=== PATIENT | female | born 1930 | race American Indian/Alaskan Native ===

== ENCOUNTER 2018-07-18 20:21 | Inpatient (IN) | payer MEDICARE ==
--- NOTE | 2018-07-18 20:47 | Emergency Department Report ---
ED General Adult HPI - General Chief complaint: Hypoglycemia Stated complaint: LOW BLOOD GLUCOSE/HIGH BP Time Seen by Provider: 07/18/18 20:33 Source: patient, family, EMS Mode of arrival: Stretcher Limitations: No Limitations - History of Present Illness Initial comments: Patient stated that legs give out and she fell in the department this evening. She was unable to get up on her own. She complained of right-sided chest wall pain. She denies any headache, neck pain. -: Sudden Location: chest Radiation: non-radiation Severity scale (0 -10): 2 Quality: sharp Consistency: constant Improves with: rest Worsens with: movement Associated Symptoms: denies other symptoms Treatments Prior to Arrival: none - Related Data Allergies Allergy/AdvReac Type Severity Reaction Status Date / Time No Known Allergies Allergy Unverified 07/18/18 20:42 ED Review of Systems ROS: Stated complaint: LOW BLOOD GLUCOSE/HIGH BP Other details as noted in HPI Comment: All other systems reviewed and negative Constitutional: denies: chills, fever Eyes: denies: eye pain, eye discharge, vision change ENT: denies: ear pain, throat pain Respiratory: denies: cough, shortness of breath, wheezing Cardiovascular: chest pain. denies: palpitations Endocrine: no symptoms reported Gastrointestinal: denies: abdominal pain, nausea, diarrhea Genitourinary: denies: urgency, dysuria, discharge Musculoskeletal: denies: back pain, joint swelling, arthralgia Skin: denies: rash, lesions Neurological: denies: headache, weakness, paresthesias Psychiatric: denies: anxiety, depression Hematological/Lymphatic: denies: easy bleeding, easy bruising ED Past Medical Hx - Past Medical History Previous Medical History?: Yes Hx Diabetes: Yes - Social History Smoking Status: Former Smoker Substance Use Type: None ED Physical Exam - General Limitations: No Limitations General appearance: alert, in no apparent distress - Head Head exam: Present: atraumatic, normocephalic, normal inspection - Eye Eye exam: Present: normal appearance, PERRL - ENT ENT exam: Present: normal exam, normal orophraynx, mucous membranes moist - Neck Neck exam: Present: normal inspection - Respiratory Respiratory exam: Present: normal lung sounds bilaterally. Absent: respiratory distress, wheezes, rales, rhonchi - Cardiovascular Cardiovascular Exam: Present: regular rate, normal rhythm, other (Right lower chest wall tenderness to palpation.). Absent: systolic murmur, diastolic murmur, rubs, gallop - GI/Abdominal GI/Abdominal exam: Present: soft, normal bowel sounds. Absent: distended, ten derness, guarding - Extremities Exam Extremities exam: Present: normal inspection, full ROM, normal capillary refill. Absent: tenderness, pedal edema - Back Exam Back exam: Present: normal inspection, full ROM - Neurological Exam Neurological exam: Present: alert, oriented X3, CN II-XII intact - Psychiatric Psychiatric exam: Present: normal affect, normal mood - Skin Skin exam: Present: warm, dry, intact, normal color. Absent: rash ED Course Vital Signs 07/18/18 07/18/18 07/18/18 20:26 20:30 20:35 Temperature 99.3 F Pulse Rate 109 H 100 H 99 H Respiratory 27 H 30 H 21 Rate Blood Pressure 143/64 143/64 Blood Pressure 143/64 [Right] O2 Sat by Pulse 94 91 92 Oximetry 07/18/18 07/18/18 07/18/18 20:46 21:00 21:16 Temperature Pulse Rate 100 H 97 H 93 H Respiratory 21 25 H 20 Rate Blood Pressure 143/64 143/64 147/73 Blood Pressure [Right] O2 Sat by Pulse 93 90 95 Oximetry 07/18/18 07/18/18 07/18/18 21:30 21:45 22:20 Temperature Pulse Rate 88 97 H Respiratory 30 H 18 Rate Blood Pressure 153/72 147/73 Blood Pressure [Right] O2 Sat by Pulse 90 94 96 Oximetry 07/18/18 07/18/18 07/18/18 22:30 22:46 23:00 Temperature Pulse Rate 85 82 80 Respiratory 23 24 22 Rate Blood Pressure 151/77 151/77 146/68 Blood Pressure [Right] O2 Sat by Pulse 92 94 94 Oximetry 07/18/18 07/18/18 07/18/18 23:16 23:30 23:38 Temperature Pulse Rate 87 85 82 Respiratory 12 29 H 28 H Rate Blood Pressure 146/68 153/78 153/78 Blood Pressure [Right] O2 Sat by Pulse 97 94 97 Oximetry 07/18/18 07/19/18 07/19/18 23:46 00:54 01:00 Temperature 100.6 F H Pulse Rate 80 Respiratory 25 H 11 L Rate Blood Pressure 153/78 Blood Pressure [Right] O2 Sat by Pulse 96 97 Oximetry - Reevaluation(s) Reevaluation #1: 07/19/18 01:45 Patient care was transitioned to Dr Rachelle Luevano to follow up on the result of the CT abdomen and pelvis with PO contrast and call back Dr Wooten with the result. - Consultations Consultation #1: 07/19/18 01:21 I consulted the general Surgeon library circulation department chief Dr Aden and he wants the CT abdomen and pelvis repeated with PO contract only and patient to be admitted by the hospitalist. Consultation #2: 07/19/18 01:22 Dr Gonzalez to admit patient. ED Medical Decision Making - Lab Data Result diagrams: 07/18/18 20:48 07/18/18 20:48 Lab Results 07/18/18 07/18/18 07/18/18 Range/Units 20:28 20:48 20:48 WBC 12.3 H (4.5-11.0) K/mm3 RBC 3.47 L (3.65-5.03) M/mm3 Hgb 9.1 L (10.1-14.3) gm/dl Hct 28.9 L (30.3-42.9) % MCV 83 (79-97) fl MCH 26 L (28-32) pg MCHC 32 (30-34) % RDW 16.1 H (13.2-15.2) % Plt Count 473 H (140-440) K/mm3 Lymph % (Auto) 5.4 L (13.4-35.0) % [place] % (Auto) 6.4 (0.0-7.3) % Eos % (Auto) 0.5 (0.0-4.3) % Baso % (Auto) 1.2 (0.0-1.8) % Lymph # 0.7 L (1.2-5.4) K/mm3 [place] # 0.8 (0.0-0.8) K/mm3 Eos # 0.1 (0.0-0.4) K/mm3 Baso # 0.1 (0.0-0.1) K/mm3 Seg Neutrophils % 86.5 H (40.0-70.0) % Seg Neutrophils # 10.7 H (1.8-7.7) K/mm3 PT 14.4 (12.2-14.9) Sec. INR 1.08 (0.87-1.13) APTT (24.2-36.6) Sec. Sodium (137-145) mmol/L Potassium (3.6-5.0) mmol/L Chloride (98-107) mmol/L Carbon Dioxide (22-30) mmol/L Anion Gap mmol/L BUN (7-17) mg/dL Creatinine (0.7-1.2) mg/dL Estimated GFR ml/min BUN/Creatinine Ratio % Glucose (65-100) mg/dL POC Glucose 109 H (70-105) Calcium (8.4-10.2) mg/dL Total Bilirubin (0.1-1.2) mg/dL AST (5-40) units/L ALT (7-56) units/L Alkaline Phosphatase (35-129) units/L Total Creatine Kinase (30-135) units/L CK-MB (CK-2) (0.0-4.0) ng/mL CK-MB (CK-2) Rel Index (0-4) Troponin T (0.00-0.029) ng/mL NT-Pro-B Natriuret Pep (0-900) pg/mL Total Protein (6.3-8.2) g/dL Albumin (3.9-5) g/dL Albumin/Globulin Ratio % Urine Color (Yellow) Urine Turbidity (Clear) Urine pH (5.0-7.0) Ur Specific Staples (1.003-1.030) Urine Protein (Negative) mg/dL Urine Glucose (UA) (Negative) mg/dL Urine Ketones (Negative) mg/dL Urine Blood (Negative) Urine Nitrite (Negative) Urine Bilirubin (Negative) Urine Urobilinogen (<2.0) mg/dL Ur Leukocyte Esterase (Negative) Urine WBC (Auto) (0.0-6.0) /HPF Urine RBC (Auto) (0.0-6.0) /HPF U Epithel Cells (Auto) (0-13.0) /HPF Urine Mucus /HPF 07/18/18 07/18/18 07/18/18 Range/Units 20:48 20:48 20:48 WBC (4.5-11.0) K/mm3 RBC (3.65-5.03) M/mm3 Hgb (10.1-14.3) gm/dl Hct (30.3-42.9) % MCV (79-97) fl MCH (28-32) pg MCHC (30-34) % RDW (13.2-15.2) % Plt Count (140-440) K/mm3 Lymph % (Auto) (13.4-35.0) % [place] % (Auto) (0.0-7.3) % Eos % (Auto) (0.0-4.3) % Baso % (Auto) (0.0-1.8) % Lymph # (1.2-5.4) K/mm3 [place] # (0.0-0.8) K/mm3 Eos # (0.0-0.4) K/mm3 Baso # (0.0-0.1) K/mm3 Seg Neutrophils % (40.0-70.0) % Seg Neutrophils # (1.8-7.7) K/mm3 PT (12.2-14.9) Sec. INR (0.87-1.13) APTT 23.2 L (24.2-36.6) Sec. Sodium 137 (137-145) mmol/L Potassium 4.0 (3.6-5.0) mmol/L Chloride 100.3 (98-107) mmol/L Carbon Dioxide 24 (22-30) mmol/L Anion Gap 17 mmol/L BUN 15 (7-17) mg/dL Creatinine 1.0 (0.7-1.2) mg/dL Estimated GFR > 60 ml/min BUN/Creatinine Ratio 15 % Glucose 108 H (65-100) mg/dL POC Glucose (70-105) Calcium 8.8 (8.4-10.2) mg/dL Total Bilirubin 0.20 (0.1-1.2) mg/dL AST 13 (5-40) units/L ALT 9 (7-56) units/L Alkaline Phosphatase 87 (35-129) units/L Total Creatine Kinase 48 (30-135) units/L CK-MB (CK-2) < 1.0 (0.0-4.0) ng/mL CK-MB (CK-2) Rel Index 2.0 (0-4) Troponin T 0.025 (0.00-0.029) ng/mL NT-Pro-B Natriuret Pep 462.4 (0-900) pg/mL Total Protein 7.5 (6.3-8.2) g/dL Albumin 3.1 L (3.9-5) g/dL Albumin/Globulin Ratio 0.7 % Urine Color (Yellow) Urine Turbidity (Clear) Urine pH (5.0-7.0) Ur Specific Staples (1.003-1.030) Urine Protein (Negative) mg/dL Urine Glucose (UA) (Negative) mg/dL Urine Ketones (Negative) mg/dL Urine Blood (Negative) Urine Nitrite (Negative) Urine Bilirubin (Negative) Urine Urobilinogen (<2.0) mg/dL Ur Leukocyte Esterase (Negative) Urine WBC (Auto) (0.0-6.0) /HPF Urine RBC (Auto) (0.0-6.0) /HPF U Epithel Cells (Auto) (0-13.0) /HPF Urine Mucus /HPF 07/18/18 07/18/18 Range/Units 21:49 23:12 WBC (4.5-11.0) K/mm3 RBC (3.65-5.03) M/mm3 Hgb (10.1-14.3) gm/dl Hct (30.3-42.9) % MCV (79-97) fl MCH (28-32) pg MCHC (30-34) % RDW (13.2-15.2) % Plt Count (140-440) K/mm3 Lymph % (Auto) (13.4-35.0) % [place] % (Auto) (0.0-7.3) % Eos % (Auto) (0.0-4.3) % Baso % (Auto) (0.0-1.8) % Lymph # (1.2-5.4) K/mm3 [place] # (0.0-0.8) K/mm3 Eos # (0.0-0.4) K/mm3 Baso # (0.0-0.1) K/mm3 Seg Neutrophils % (40.0-70.0) % Seg Neutrophils # (1.8-7.7) K/mm3 PT (12.2-14.9) Sec. INR (0.87-1.13) APTT (24.2-36.6) Sec. Sodium (137-145) mmol/L Potassium (3.6-5.0) mmol/L Chloride (98-107) mmol/L Carbon Dioxide (22-30) mmol/L Anion Gap mmol/L BUN (7-17) mg/dL Creatinine (0.7-1.2) mg/dL Estimated GFR ml/min BUN/Creatinine Ratio % Glucose (65-100) mg/dL POC Glucose 106 H (70-105) Calcium (8.4-10.2) mg/dL Total Bilirubin (0.1-1.2) mg/dL AST (5-40) units/L ALT (7-56) units/L Alkaline Phosphatase (35-129) units/L Total Creatine Kinase (30-135) units/L CK-MB (CK-2) (0.0-4.0) ng/mL CK-MB (CK-2) Rel Index (0-4) Troponin T (0.00-0.029) ng/mL NT-Pro-B Natriuret Pep (0-900) pg/mL Total Protein (6.3-8.2) g/dL Albumin (3.9-5) g/dL Albumin/Globulin Ratio % Urine Color Yellow (Yellow) Urine Turbidity Clear (Clear) Urine pH 5.0 (5.0-7.0) Ur Specific Staples 1.019 (1.003-1.030) Urine Protein <15 mg/dl (Negative) mg/dL Urine Glucose (UA) Neg (Negative) mg/dL Urine Ketones Neg (Negative) mg/dL Urine Blood Neg (Negative) Urine Nitrite Neg (Negative) Urine Bilirubin Neg (Negative) Urine Urobilinogen 4.0 (<2.0) mg/dL Ur Leukocyte Esterase Neg (Negative) Urine WBC (Auto) 2.0 (0.0-6.0) /HPF Urine RBC (Auto) < 1.0 (0.0-6.0) /HPF U Epithel Cells (Auto) 3.0 (0-13.0) /HPF Urine Mucus Few /HPF - EKG Data -: EKG Interpreted by Nc EKG shows normal: sinus rhythm Rate: tachycardia (100) - EKG Data When compared to previous EKG there are: previous EKG unavailable Interpretation: nonspecific ST-T wave farshad 07/18/18 20:55 PVC. No STEMI. - Radiology Data Radiology results: report reviewed, image reviewed Hypoglycermia. Abdominal pain. s/p Fall. Critical Care Time: Yes Critical care time in (mins) excluding proc time.: 50 Critical care attestation.: If time is entered above; I have spent that time in minutes in the direct care of this critically ill patient, excluding procedure time. ED Disposition Clinical Impression: Perforated diverticulum of large intestine, Acute perforated appendicitis Fall Qualifiers: Encounter type: initial encounter Qualified Code(s): W19.XXXA - Unspecified fall, initial encounter Abdominal pain Qualifiers: Abdominal location: right lower quadrant Qualified Code(s): R10.31 - Right lower quadrant pain Disposition: 09 OP ADMIT IP TO THIS HOSP Is pt being admited?: Yes Does the pt Need Aspirin: No Condition: Stable Referrals: PRIMARY CARE, [Primary Care Provider] - 3-5 Days Time of Disposition: 01:08
[2018-07-18 21:06] LABS: Basophils # (Auto) 0.1 K/mm3 (0.0-0.1); Basophils % (Auto) 1.2 % (0.0-1.8); Eosinophils # (Auto) 0.1 K/mm3 (0.0-0.4); Eosinophils % (Auto) 0.5 % (0.0-4.3); Hematocrit 28.9 % (30.3-42.9); Hemoglobin 9.1 gm/dl (10.1-14.3); Lymphocytes # (Auto) 0.7 K/mm3 (1.2-5.4); Lymphocytes % (Auto) 5.4 % (13.4-35.0); Mean Corpuscular HGB Conc 32 % (30-34); Mean Corpuscular Volume 83 fl (79-97); Monocytes # (Auto) 0.8 K/mm3 (0.0-0.8); Monocytes % (Auto) 6.4 % (0.0-7.3); Platelet Count 473 K/mm3 (140-440); Red Blood Count 3.47 M/mm3 (3.65-5.03); Red Cell Distribution Width 16.1 % (13.2-15.2)
[2018-07-18 21:09] LABS: INR 1.08 (0.87-1.13)
[2018-07-18 21:19] LABS: Creatine Kinase MB < 1.0 ng/mL (0.0-4.0)
--- NOTE | 2018-07-18 21:29 | XRay Report ---
FINAL REPORT EXAM: XR CHEST 1V AP HISTORY: Lightheadedness/Dizziness TECHNIQUE: AP portable view of the chest. PRIORS: None. FINDINGS: There is atherosclerotic calcification in the thoracic aorta. The cardiac silhouette is enlarged. The right lung is clear. There is a left basilar opacity consistent with a pleural effusion. The bones a nd soft tissues are unremarkable. IMPRESSION: Subpleural effusion and cardiomegaly
[2018-07-18 21:43] LABS: Alanine Aminotransferase 9 units/L (7-56); Albumin 3.1 g/dL (3.9-5); BUN/Creatinine Ratio 15; Blood Urea Nitrogen 15 mg/dL (7-17); Calcium 8.8 mg/dL (8.4-10.2); Hemolysis Index 2
[2018-07-18 22:04] LABS: Bilirubin,Urine NEG (Negative); Blood,Urine NEG (Negative); Color,Urine Yellow (Yellow); Mucus,Urine FEW /HPF; Protein,Urine <15 mg/dL mg/dL (Negative); RBC,Urine < 1.0 /HPF (0.0-6.0)
--- NOTE | 2018-07-18 22:34 | Cat Scan Report ---
FINAL REPORT EXAM: CT HEAD/BRAIN WO CON HISTORY: Lightheadedness/Dizziness TECHNIQUE: Contiguous axial images of the head were obtained without the use of intravenous contrast . PRIORS: None. FINDINGS: The cerebral hemispheres are without focal lesions. There is no evidence of acute infarct or intracra nial hemorrhage. There is no mass lesion or mass effect. There are no abnormal extra-axial fluid col lections. The ventricles and sulci are prominent consistent with generalized loss of brain substance, appropriate for age. There is deep white matter lucency consistent with chronic microvascular ischem ic disease. The visualized skull and orbits are unremarkable. The visualized paranasal sinuses are cl ear. IMPRESSION: 1. No evidence of acute infarct or intracranial hemorrhage. 2. White matter lucency consistent with chronic microvascular ischemic disease.
--- NOTE | 2018-07-19 00:53 | Cat Scan Report ---
FINAL REPORT EXAM: CT ANGIO CHEST HISTORY: Chest pain TECHNIQUE: High-resolution helical axial images were obtained of the chest during intravenous admini stration of iodinated contrast. Images are reconstructed in the sagittal and coronal planes. PRIORS: None. FINDINGS: There is no evidence of pulmonary embolism, the pulmonary arteries opacify normally. The heart is moderately enlarged. The thoracic aorta is non aneurysmal. There is lingular linear thic kening consistent with subsegmental atelectasis or parenchymal scar. Images through the upper abdomen are unremarkable. There is thoracic spondylosis with multiple bridging syndesmophytes. IMPRESSION: 1. No evidence of pulmonary embolism. 2. Mild cardiomegaly 3. Lingular subsegmental atelectasis versus parenchymal scar 4. Findings are consistent with DISH
--- NOTE | 2018-07-19 00:58 | Cat Scan Report ---
FINAL REPORT EXAM: CT ABDOMEN PELVIS W CON HISTORY: abdominal pain TECHNIQUE: Routine axial imaging was obtained of the abdomen and pelvis following the intravenous in jection of iodinated contrast. Sagittal and coronal reconstructions were reviewed. There are no previ ous studies available for comparison. FINDINGS: The lung bases reveal interstitial changes which appear to be on a chronic basis. The heart is mildly enlarged. The gallbladder is contracted. The liver and biliary tree appear normal. The pancreas, spleen and adr enal glands appear normal. The kidneys reveal benign cortical cysts bilaterally measuring to 2.2 cm i n diameter. There is no evidence of hydronephrosis. The abdominal aorta is normal in caliber. The por divya vein enhances normally. There are scattered diverticula throughout the colon. There are diffuse inflammatory changes involvin g the cecum and proximal ascending colon with extensive pericolonic stranding and inflammatory change s particularly posteriorly. It is uncertain whether the findings are secondary to appendicitis with p robable perforation versus diverticulitis with perforation. A normal-appearing appendix is not seen. There is no evidence of bowel obstruction. Adenopathy is not identified. In the pelvis the bladder ap pears normal. The uterus has been removed. The skeletal structures reveal multilevel disc degeneratio n in the lumbar spine. IMPRESSION: Extensive inflammatory changes involving the cecum and proximal ascending colon extending posteriorly with pericolonic stranding. Diagnostic consideration would include appendicitis with perforation pre suming the patient still has her appendix. The other possibility is severe diverticulitis with probab le perforation. Extensive colonic diverticulosis. Uncomplicated cysts in both kidneys. Hysterectomy. Multilevel disc degeneration in the lumbar spine. Incidental note is made of a crescent-shaped area of mural thrombus at the thoracoabdominal junction involving the aorta. A remote dissection cannot entirely be excluded.
[2018-07-19] MEDS ORDERED: TYLENOL ONE (00:59)
[2018-07-19] MEDS ORDERED: TYLENOL PO ONE (01:00)
[2018-07-19] MEDS ORDERED: FLAGYL 500 MG/100 ML 500 MG/100 ML BAG IV ONE (01:03)
[2018-07-19] MEDS ORDERED: ZOSYN/NS 4.5GM/100ML 4.5 GM/100 ML VIAL IV ONE (01:03)
[2018-07-19] MEDS ORDERED: ZOFRAN IV ONE (01:20)
[2018-07-19] MEDS ORDERED: D5NS 1,000 ML IV SCH (02:00)
--- NOTE | 2018-07-19 02:44 | History and Physical Report ---
History of Present Illness Date of examination: 07/19/18 Chief complaint: Falls History of present illness: Patient is 87 yo woman with a history of DM, CHF and hypertension who presents to [facility] ED via EMS with AMS, falling at home, feeling hot, blood glucose was in the 40s and she was given oral glucose by EMS prior to arrival. Associated with falling is diaphoresis, lose of appetite, n/v, sob x 1 day. This is patient 3rd fall at home. She did complain of right upper quadrant, sharp intermittent severe, aggravated by certain movement, relieved by different positions. PMH: as hpi PSH: hysterectomy SH: former smoker, no etoh, no illegal drugs FH: dm, htn, father had ppm, Identical twin sister of stomach cancer ROS: Constitutional: +fever ENT: denies: throat or neck pain Respiratory: denies: cough, shortness of breath Cardiovascular: denies: chest pain Endocrine: denies unexplained weight loss or gain +dm Gastrointestinal: + abdominal pain, nausea Genitourinary: denies: dysuria Rectal: denies no incontinence, no bleeding, no itching, no discharge Musculoskeletal: denies swelling, myaglia, muscle weakness Skin: denies: rash Neurological: denies: headache Hematological/Lymphatic: denies: easy bleeding or easy bruising Allergic/Immunologic: no urticaria, no allergic rhinitis, no anaphylaxis Psych: denies sadness or hopelessness, SI/HI Gen: WDWN, NAD, Awake, Alert, Orientated HEENT: NCAT, EOMI, PERRL, OP Clear Neck: supple, no adenopathy, no thyromegaly, no JVD CVS/Heart: RRR, normal S1S2, pulses present bilaterally Chest/Lungs: diminished bs bilateral, Symmetrical chest expansion, good air entry bilaterally GI/Abdomen: soft, ruq tenderness, good bowel sounds, no guarding or rebound /Bladder: no suprapubic tenderness, no CVA or paraspinal tenderness Extermity/Skin: no c/c/e, no obvious rash MSK: FROM x 4 Neuro: CN 2-12 grossly intact, no new focal deficits Psych: calm Medications and Allergies Allergies Allergy/AdvReac Type Severity Reaction Status Date / Time No Known Allergies Allergy Unverified 07/18/18 20:42 Active Meds: Active Medications Dextrose/Sodium Chloride (D5ns) 1,000 mls @ 150 mls/hr IV DIRECT TRINY Piperacillin Sod/Tazobactam Sod (Zosyn/Ns 4.5gm/100ml) 4.5 gm in 100 mls @ 200 mls/hr IV Q8HR TRINY; Protocol Sodium Chloride (Nacl 0.9% 1000 Ml) 1,000 mls @ 100 mls/hr IV DIRECT TRINY Morphine Sulfate (Morphine) 2 mg IV Q4H PRN PRN Reason: Pain , Severe (7-10) Exam - Constitutional Vitals: Temp Pulse Resp BP Pulse Ox 100.6 F H 80 11 L 153/78 97 07/19/18 00:54 07/18/18 23:46 07/19/18 01:00 07/18/18 23:46 07/19/18 01:00 Results - Labs CBC & Chem 7: 07/19/18 02:50 07/18/18 20:48 Labs: Abnormal lab results 07/18/18 07/18/18 07/18/18 Range/Units 20:28 20:48 20:48 WBC 12.3 H (4.5-11.0) K/mm3 RBC 3.47 L (3.65-5.03) M/mm3 Hgb 9.1 L (10.1-14.3) gm/dl Hct 28.9 L (30.3-42.9) % MCH 26 L (28-32) pg RDW 16.1 H (13.2-15.2) % Plt Count 473 H (140-440) K/mm3 Lymph % (Auto) 5.4 L (13.4-35.0) % Lymph # 0.7 L (1.2-5.4) K/mm3 Seg Neutrophils % 86.5 H (40.0-70.0) % Seg Neutrophils # 10.7 H (1.8-7.7) K/mm3 APTT (24.2-36.6) Sec. Glucose 108 H (65-100) mg/dL POC Glucose 109 H (70-105) Albumin 3.1 L (3.9-5) g/dL 07/18/18 07/18/18 Range/Units 20:48 23:12 WBC (4.5-11.0) K/mm3 RBC (3.65-5.03) M/mm3 Hgb (10.1-14.3) gm/dl Hct (30.3-42.9) % MCH (28-32) pg RDW (13.2-15.2) % Plt Count (140-440) K/mm3 Lymph % (Auto) (13.4-35.0) % Lymph # (1.2-5.4) K/mm3 Seg Neutrophils % (40.0-70.0) % Seg Neutrophils # (1.8-7.7) K/mm3 APTT 23.2 L (24.2-36.6) Sec. Glucose (65-100) mg/dL POC Glucose 106 H (70-105) Albumin (3.9-5) g/dL Assessment and Plan Patient is 87 yo woman with a history of DM, CHF and hypertension who presents to [facility] ED via EMS with AMS, falling at home, feeling hot, blood glucose was in the 40s and she was given oral glucose by EMS prior to arrival. Associated with falling is diaphoresis, lose of appetite, n/v, sob x 1 day. This is patient 3rd fall at home. She did complain of right upper quadrant, sharp intermittent severe, aggravated by certain movement, relieved by different positions. * CTAP with IV contrast IMPRESSION: Extensive inflammatory changes involving the cecum and proximal ascending colon extending posteriorly with pericolonic stranding. Diagnostic consideration would include appendicitis with perforation presuming the patient still has her appendix. The other possibility is severe diverticulitis with probable perforation. Extensive colonic diverticulosis. Uncomplicated cysts in both kidneys. Hysterectomy. Multilevel disc degeneration in the lumbar spine. Incidental note is made of a crescent-shaped area of mural thrombus at the thoracoabdominal junction involving the aorta. A remote dissection cannot entirely be excluded. * CTA chest pains IMPRESSION: 1. No evidence of pulmonary embolism. 2. Mild cardiomegaly 3. Lingular subsegmental atelectasis versus parenchymal scar 4. 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 No evidence of acute infarct or intracranial hemorrhage. 2. White matter lucency consistent with chronic microvascular ischemic disease. * pCXR IMPRESSION: Subpleural effusion and cardiomegaly Recurrent falls with episodes of hypoglycemia: hold DM medication(s), treat with dextrose, accuchecks Sepsis (late find in ED,so I ordered lactic acid x 2, and IVF) with suspected perforated bowel from appendix vs diverticuli: get lactic acid, treat with iv abx, ivf, npo, Dr. Wooten notified and wants a CT with oral contrast prior to leaving ED. 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 The aggregate critical care time was [34] minutes. This time is in addition to time spent performing reported procedures but includes the following: [] Data Review and interpretation [] Patient assessment and monitoring of vital signs [] Documentation [] Medication orders and management
[2018-07-19] MEDS ORDERED: D50W (25GM) Syringe IV PRN (02:51)
[2018-07-19 03:18] LABS: Hematocrit 27.9 % (30.3-42.9); Mean Corpuscular HGB Conc 32 % (30-34); Mean Corpuscular Volume 83 fl (79-97); Platelet Count 434 K/mm3 (140-440); Red Blood Count 3.35 M/mm3 (3.65-5.03); Red Cell Distribution Width 15.8 % (13.2-15.2)
[2018-07-19 03:45] LABS: BUN/Creatinine Ratio 17; Blood Urea Nitrogen 15 mg/dL (7-17); Calcium 8.7 mg/dL (8.4-10.2); Hemolysis Index 0
[2018-07-19] MEDS: HumaLOG SUB-Q SCH ×6 (04:03→23:27)
--- NOTE | 2018-07-19 04:31 | Cat Scan Report ---
FINAL REPORT EXAM: CT ABDOMEN PELVIS W CON HISTORY: abdominal pain TECHNIQUE: Repeat axial imaging was obtained of the abdomen pelvis following oral contrast ingestion . Repeat IV contrast was not administered. Sagittal and coronal reconstructions were reviewed. FINDINGS: The lung bases are negative for infiltrates or effusions. Oral contrast is seen within the colon and distal small bowel loops. There are multiple diverticula i n the colon. There is only partial luminal filling of the cecum and proximal ascending colon. There a re multiple diverticula along the cecum and ascending colon. Once again there extensive inflammatory changes with pericolonic stranding. A normal-appearing appendix is still not identified. Free fluid i s not seen. The liver, gallbladder and biliary tree appear normal. The pancreas is mildly atrophic. The spleen an d adrenal glands appear normal. The kidneys reveal benign cortical cysts bilaterally. There is no blake dence of hydronephrosis. The abdominal aorta is normal in caliber. There is no evidence of free fluid or adenopathy. In the pelvis the uterus has been removed. The bladder appears normal. The skeletal s tructures reveal multilevel disc degeneration in the lumbar spine. IMPRESSION: Diffuse inflammatory changes involving the cecum and proximal ascending colon with associated diverti cular disease. Only partial luminal filling of the cecum and ascending colon. A normal-appearing appe ndix is not identified. Once again diagnostic consideration would include appendicitis with probable perforation versus diverticulitis with localized perforation.
[2018-07-19] MEDS ORDERED: ZOSYN/NS 4.5GM/100ML 4.5 GM/100 ML VIAL IV SCH ×2 (06:00→08:00)
[2018-07-19] MEDS ORDERED: FLAGYL 500 MG/100 ML 500 MG/100 ML BAG IV SCH (06:00)
[2018-07-19] MEDS: PROTONIX IV SCH (12:05)
[2018-07-19] MEDS: FLAGYL 500 MG/100 ML 500 MG/100 ML BAG IV SCH ×2 (12:05→17:39)
[2018-07-19] MEDS: NACL 0.9% 1000 ML 1,000 ML IV SCH (12:06)
--- NOTE | 2018-07-19 12:12 | Event Note ---
Date: 07/19/18 Cardiology consultation was requested for the incidental finding of a mural thrombus in the abdominal aorta, in a patient admitted with acute abdomen. Recommend that the consultation be redirected to vascular surgery of your choice. Please call us if you have any future cardiac issues.
--- NOTE | 2018-07-19 13:24 | Progress Note ---
Assessment and Plan Full consult dictated. 87 y/o female - sal cecal colonic inflammation. diverticulitis? microperforation? necrotic tumor? Abd soft, non tender. rec NPO IVF hydration ID eval will subsequently also need GI eval for colonoscopy once acute episode subsides.. will follow History of present illness: Patient is 87 yo woman with a history of DM, CHF and hypertension who presents to [facility] ED via EMS with AMS, falling at home, feeling hot, blood glucose was in the 40s and she was given oral glucose by EMS prior to arrival. Associated with falling is diaphoresis, lose of appetite, n/v, sob x 1 day. This is patient 3rd fall at home. She did complain of right upper quadrant, sharp intermittent severe, aggravated by certain movement, relieved by different positions. PMH: as hpi PSH: hysterectomy SH: former smoker, no etoh, no illegal drugs FH: dm, htn, father had ppm, Identical twin sister of stomach cancer Selected Entries 07/19/18 07/19/18 11:09 11:10 Temperature 100.3 F H Pulse Rate 104 H O2 Sat by Pulse 99 Oximetry Blood Pressure 195/55 Laboratory Tests 07/18/18 07/18/18 07/19/18 20:48 20:48 02:50 WBC 12.3 H 10.5 Hgb 9.1 L 9.0 L Hct 28.9 L 27.9 L Sodium Potassium Chloride BUN Creatinine Total Bilirubin 0.20 AST 13 ALT 9 Alkaline Phosphatase 87 07/19/18 02:50 WBC Hgb Hct Sodium 136 L Potassium 4.6 Chloride 98.8 BUN 15 Creatinine 0.9 Total Bilirubin AST ALT Alkaline Phosphatase Objective Vital Signs - 12hr 07/19/18 07/19/18 07/19/18 01:30 01:46 02:00 Temperature Pulse Rate 92 H 96 H Respiratory 28 H 16 15 Rate Blood Pressure 179/80 185/83 185/83 O2 Sat by Pulse 95 95 95 Oximetry 07/19/18 07/19/18 07/19/18 02:16 02:30 02:46 Temperature Pulse Rate 96 H 89 84 Respiratory 24 20 25 H Rate Blood Pressure 145/75 145/75 144/72 O2 Sat by Pulse 88 93 82 L Oximetry 07/19/18 07/19/18 07/19/18 03:00 03:16 03:28 Temperature 98.8 F Pulse Rate 80 75 Respiratory 27 H 21 Rate Blood Pressure 144/72 130/63 O2 Sat by Pulse 88 91 Oximetry 07/19/18 07/19/18 07/19/18 03:30 03:46 04:04 Temperature Pulse Rate 72 69 81 Respiratory 21 21 Rate Blood Pressure 130/63 122/61 O2 Sat by Pulse 91 92 Oximetry 07/19/18 07/19/18 07/19/18 04:16 04:30 04:46 Temperature Pulse Rate 75 73 77 Respiratory 18 30 H 14 Rate Blood Pressure 160/72 160/72 134/63 O2 Sat by Pulse 94 90 95 Oximetry 07/19/18 07/19/18 07/19/18 05:00 05:16 05:30 Temperature Pulse Rate 74 71 74 Respiratory 25 H 26 H 23 Rate Blood Pressure 134/63 151/127 151/127 O2 Sat by Pulse 80 L 89 84 Oximetry 07/19/18 07/19/18 07/19/18 05:46 06:00 10:08 Temperature Pulse Rate 73 74 Respiratory 30 H 29 H Rate Blood Pressure 151/69 151/69 O2 Sat by Pulse 90 93 94 Oximetry 07/19/18 07/19/18 07/19/18 10:16 10:37 11:09 Temperature 100.3 F H Pulse Rate 106 H Respiratory 20 20 Rate Blood Pressure 149/67 195/55 O2 Sat by Pulse 94 97 87 Oximetry 07/19/18 11:10 Temperature Pulse Rate 104 H Respiratory Rate Blood Pressure O2 Sat by Pulse 99 Oximetry - Labs 07/19/18 02:50 07/19/18 02:50 Diabetes panel 07/18/18 07/19/18 Range/Units 20:48 02:50 Sodium 137 136 L (137-145) mmol/L Potassium 4.0 4.6 (3.6-5.0) mmol/L Chloride 100.3 98.8 (98-107) mmol/L Carbon Dioxide 24 25 (22-30) mmol/L BUN 15 15 (7-17) mg/dL Creatinine 1.0 0.9 (0.7-1.2) mg/dL Glucose 108 H 105 H (65-100) mg/dL Calcium 8.8 8.7 (8.4-10.2) mg/dL AST 13 (5-40) units/L ALT 9 (7-56) units/L Alkaline Phosphatase 87 (35-129) units/L Total Protein 7.5 (6.3-8.2) g/dL Albumin 3.1 L (3.9-5) g/dL Calcium panel 07/18/18 07/19/18 Range/Units 20:48 02:50 Calcium 8.8 8.7 (8.4-10.2) mg/dL Albumin 3.1 L (3.9-5) g/dL Pituitary panel 07/18/18 07/19/18 Range/Units 20:48 02:50 Sodium 137 136 L (137-145) mmol/L Potassium 4.0 4.6 (3.6-5.0) mmol/L Chloride 100.3 98.8 (98-107) mmol/L Carbon Dioxide 24 25 (22-30) mmol/L BUN 15 15 (7-17) mg/dL Creatinine 1.0 0.9 (0.7-1.2) mg/dL Glucose 108 H 105 H (65-100) mg/dL Calcium 8.8 8.7 (8.4-10.2) mg/dL Adrenal panel 07/18/18 07/19/18 Range/Units 20:48 02:50 Sodium 137 136 L (137-145) mmol/L Potassium 4.0 4.6 (3.6-5.0) mmol/L Chloride 100.3 98.8 (98-107) mmol/L Carbon Dioxide 24 25 (22-30) mmol/L BUN 15 15 (7-17) mg/dL Creatinine 1.0 0.9 (0.7-1.2) mg/dL Glucose 108 H 105 H (65-100) mg/dL Calcium 8.8 8.7 (8.4-10.2) mg/dL Total Bilirubin 0.20 (0.1-1.2) mg/dL AST 13 (5-40) units/L ALT 9 (7-56) units/L Alkaline Phosphatase 87 (35-129) units/L Total Protein 7.5 (6.3-8.2) g/dL Albumin 3.1 L (3.9-5) g/dL
--- NOTE | 2018-07-19 14:19 | Consultation ---
History of Present Illness - Reason for Consult Consult date: 07/19/18 Sepsis, intra-abdominal source Requesting physician: TIFFANIE DAVIS - History of Present Illness The patient is an 87-year-old female with diabetes mellitus, congestive heart failure, HTN who presented to the emergency room with some altered mental status and having multiple falls. Lives with her niece who mentions that the patient had not been feeling well for the last 1 day with a poor appetite. She also had some nausea and vomiting and complained of abdominal pain. After she fell, she was brought here. In the emergency room, she underwent a CT of the abdomen and pelvis which was concerning for possible perforated appendicitis versus diverticulitis versus phlegmon. She was admitted with concerns for sepsis and started empirically on IV antibiotics. General surgery was consulted as well as infectious diseases. She currently complains of some abdominal pain and has not been feeling well. She reports some nausea but currently no vomiting. Review of Systems: General: no fevers,chills or rigors HEENT: no new visual disturbance Respiratory: No cough, sputum, hemoptysis or shortness of breath Cardiovascular: No chest pain, syncope Gastrointestinal: nausea +, no vomiting or diarrhea. Abdominal pain + Genitourinary: No dysuria or hematuria Musculoskeletal: No new or worsening neck pain or back pain Neurologic: No headaches, seizures Hematologic: No easy bruising or bleeding Endocrine: No night sweats or acute weight loss Skin: negative for rash, jaundice Psychiatric: No suicidal or homicidal ideation Medications and Allergies Allergies Allergy/AdvReac Type Severity Reaction Status Date / Time No Known Allergies Allergy Unverified 07/18/18 20:42 Home Medications Medication Instructions Recorded Confirmed Last Taken Type Furosemide [Lasix] 20 mg PO DAILY 07/19/18 07/19/18 07/18/18 History Insulin Aspart [Novolog Flexpen] 100 unit SQ TID 07/19/18 07/19/18 07/18/18 History Losartan Potassium [Cozaar] 50 mg PO DAILY 07/19/18 07/19/18 07/18/18 History Metoprolol Xl [Metoprolol 25 mg PO QDAY 07/19/18 07/19/18 07/18/18 History SUCCINATE ER TAB] Naproxen 500 mg PO BID 07/19/18 07/19/18 07/18/18 History Ranitidine HCl [Acid Control] 150 mg PO BID 07/19/18 07/19/18 07/18/18 History Active Meds: Active Medications Dextrose (D50w (25gm) Syringe) 50 ml IV PRN PRN PRN Reason: Hypoglycemia Enalaprilat (Vasotec) 1.25 mg IV Q6HR [facility] Heparin Sodium (Porcine) (Heparin) 5,000 unit SUB-Q Q12HR [facility] Hydralazine HCl (Apresoline) 10 mg IV Q4HR PRN PRN Reason: Hypertension Sodium Chloride (Nacl 0.9% 1000 Ml) 1,000 mls @ 100 mls/hr IV DIRECT [facility] Last Admin: 07/19/18 12:06 Dose: 100 mls/hr Documented by: Metronidazole (Flagyl 500 Mg/100 Ml) 500 mg in 100 mls @ 100 mls/hr IV Q8H [facility]; Protocol Last Admin: 07/19/18 12:05 Dose: 100 mls/hr Documented by: Cefepime HCl (Maxipime/Ns 2 Gm/100 Ml) 2 gm in 100 mls @ 200 mls/hr IV Q12HR [facility]; Protocol Insulin Human Lispro (Humalog) 0 unit SUB-Q Q4H [facility]; Protocol Last Admin: 07/19/18 12:15 Dose: Not Given Documented by: Morphine Sulfate (Morphine) 2 mg IV Q4H PRN PRN Reason: Pain , Severe (7-10) Pantoprazole Sodium (Protonix) 40 mg IV QDAY [facility] Last Admin: 07/19/18 12:05 Dose: 40 mg Documented by: Pneumococcal Polyvalent Vaccine (Pneumovax 23) 0.5 ml IM .ONCE ONE Stop: 07/20/18 12:01 Physical Examination - Physical Exam Narrative exam: Physical Exam: Constitutional: Alert, cooperative. No acute distress Head, Ears, Nose: Normocephalic, atraumatic. External ears, nose normal Eyes: Conjunctivae/corneas clear. No icterus. No ptosis. Neck: Supple, no meningeal signs Oral: dentition fair, no thrush Cardiovascular: S1, S2 normal. Respiratory: Good air entry, clear to auscultation bilaterally GI: Soft, mildly tender in right abdomen; bowel sounds +. No rebound Musculoskeletal: No pedal edema, no cyanosis. Skin: No rash or abscess Hem/Lymphatic: No palpable cervical or supraclavicular nodes. No lymphangitis Psych: Mood ok. Affect normal Neurological: Awake, alert, oriented. No gross abnormality - Constitutional Vitals: Vital Signs Temp Pulse Resp BP Pulse Ox 100.3 F H 104 H 20 195/55 99 07/19/18 11:09 07/19/18 11:10 07/19/18 11:09 07/19/18 11:09 07/19/18 11:10 Temperature -Last 24 Hours Temperature 100.3 F Temperature 98.8 F Temperature 100.6 F Temperature 99.3 F Temperature 99.3 F Results - Labs CBC & Chem 7: 07/19/18 02:50 07/19/18 02:50 Labs: Abnormal lab results 07/18/18 07/18/18 07/18/18 Range/Units 20:28 20:48 20:48 WBC 12.3 H (4.5-11.0) K/mm3 RBC 3.47 L (3.65-5.03) M/mm3 Hgb 9.1 L (10.1-14.3) gm/dl Hct 28.9 L (30.3-42.9) % MCH 26 L (28-32) pg RDW 16.1 H (13.2-15.2) % Plt Count 473 H (140-440) K/mm3 Lymph % (Auto) 5.4 L (13.4-35.0) % Lymph # 0.7 L (1.2-5.4) K/mm3 Seg Neutrophils % 86.5 H (40.0-70.0) % Seg Neutrophils # 10.7 H (1.8-7.7) K/mm3 APTT (24.2-36.6) Sec. Sodium (137-145) mmol/L Glucose 108 H (65-100) mg/dL POC Glucose 109 H (70-105) Albumin 3.1 L (3.9-5) g/dL 07/18/18 07/18/18 07/19/18 Range/Units 20:48 23:12 02:50 WBC (4.5-11.0) K/mm3 RBC 3.35 L (3.65-5.03) M/mm3 Hgb 9.0 L (10.1-14.3) gm/dl Hct 27.9 L (30.3-42.9) % MCH 27 L (28-32) pg RDW 15.8 H (13.2-15.2) % Plt Count (140-440) K/mm3 Lymph % (Auto) (13.4-35.0) % Lymph # (1.2-5.4) K/mm3 Seg Neutrophils % (40.0-70.0) % Seg Neutrophils # (1.8-7.7) K/mm3 APTT 23.2 L (24.2-36.6) Sec. Sodium (137-145) mmol/L Glucose (65-100) mg/dL POC Glucose 106 H (70-105) Albumin (3.9-5) g/dL 07/19/18 07/19/18 07/19/18 Range/Units 02:50 08:00 11:46 WBC (4.5-11.0) K/mm3 RBC (3.65-5.03) M/mm3 Hgb (10.1-14.3) gm/dl Hct (30.3-42.9) % MCH (28-32) pg RDW (13.2-15.2) % Plt Count (140-440) K/mm3 Lymph % (Auto) (13.4-35.0) % Lymph # (1.2-5.4) K/mm3 Seg Neutrophils % (40.0-70.0) % Seg Neutrophils # (1.8-7.7) K/mm3 APTT (24.2-36.6) Sec. Sodium 136 L (137-145) mmol/L Glucose 105 H (65-100) mg/dL POC Glucose 131 H 152 H (70-105) Albumin (3.9-5) g/dL 07/19/18 Range/Units 13:46 WBC (4.5-11.0) K/mm3 RBC (3.65-5.03) M/mm3 Hgb (10.1-14.3) gm/dl Hct (30.3-42.9) % MCH (28-32) pg RDW (13.2-15.2) % Plt Count (140-440) K/mm3 Lymph % (Auto) (13.4-35.0) % Lymph # (1.2-5.4) K/mm3 Seg Neutrophils % (40.0-70.0) % Seg Neutrophils # (1.8-7.7) K/mm3 APTT (24.2-36.6) Sec. Sodium (137-145) mmol/L Glucose (65-100) mg/dL POC Glucose 152 H (70-105) Albumin (3.9-5) g/dL - Imaging and Cardiology Chest x-ray: report reviewed, image reviewed (no pneumonia) CT scan - abdomen: report reviewed, image reviewed (diverticulitis versus intra- abdominal phlegmon/abscess with ?perforation) CT scan - pelvis: report reviewed, image reviewed Assessment and Plan Cultures: 07/19/2018 blood culture: In progress A/P: 87-year-old female with diabetes mellitus, congestive heart failure, HTN admit audelia with: #1 sepsis, present on admission likely from intra-abdominal source: Colitis versus diverticulitis versus intra-abdominal phlegmon/abscess with ?perforation: Gen. surgery following. We will discontinue Zosyn. Start her on IV cefepime and continue Flagyl. Dual anaerobic coverage is not needed. D/W Wooten, planning conservative management for now. Monitor fever and WBC. #2 Acute encephalopathy: metabolic. 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 Recs: discontinued Zosyn started IV Cefepime 2 gm q12 hrs continue Flagyl IV D/W Wooten, planning conservative management for now Monitor fever and WBC. Will follow. Please call with questions. MD Lisa [facility] C: [phone] O: [phone] F: [phone]
[2018-07-19] MEDS: MAXIPIME/NS 2 GM/100 ML 2 GM/100 ML BAG IV SCH ×2 (14:32→23:15)
[2018-07-19] MEDS: APRESOLINE IV PRN (14:34)
--- NOTE | 2018-07-19 15:18 | Gastroenterology Consultation ---
History of Present Illness - Reason for Consult Consult date: 07/19/18 abdominal pain Requesting physician: ZEV CAMPOS - History of Present Illness This is a 87 yo AAF with pmh of DM, CHF, HTN admitted to hospitalist service after presenting with AMS and multiple falls. She has not been feeling well with nausea/vomiting for past few days and poor appetite. No significant abdominal pain per patient. She fell again leading to her coming to the ED. Work up so far include CT abdomen/pelvis, which was concerning for possible diverticulitis, appendicitis with microperforation. General surgery on board and patient on conservative management with antibiotics. Reports last colonoscopy many years ago. Denies any abdominal pain at this time seen in the afternoon today. Past History Past Medical History: diabetes, hypertension Past Surgical History: hysterectomy Medications and Allergies Allergies Allergy/AdvReac Type Severity Reaction Status Date / Time No Known Allergies Allergy Unverified 07/18/18 20:42 Home Medications Medication Instructions Recorded Confirmed Last Taken Type Furosemide [Lasix] 20 mg PO DAILY 07/19/18 07/19/18 07/18/18 History Insulin Aspart [Novolog Flexpen] 100 unit SQ TID 07/19/18 07/19/18 07/18/18 History Losartan Potassium [Cozaar] 50 mg PO DAILY 07/19/18 07/19/18 07/18/18 History Metoprolol Xl [Metoprolol 25 mg PO QDAY 07/19/18 07/19/18 07/18/18 History SUCCINATE ER TAB] Naproxen 500 mg PO BID 07/19/18 07/19/18 07/18/18 History Ranitidine HCl [Acid Control] 150 mg PO BID 07/19/18 07/19/18 07/18/18 History Active Meds: Active Medications Dextrose (D50w (25gm) Syringe) 50 ml IV PRN PRN PRN Reason: Hypoglycemia Enalaprilat (Vasotec) 1.25 mg IV Q6HR [facility] Heparin Sodium (Porcine) (Heparin) 5,000 unit SUB-Q Q12HR [facility] Hydralazine HCl (Apresoline) 10 mg IV Q4HR PRN PRN Reason: Hypertension Last Admin: 07/19/18 14:34 Dose: 10 mg Documented by: Sodium Chloride (Nacl 0.9% 1000 Ml) 1,000 mls @ 100 mls/hr IV DIRECT [facility] Last Admin: 07/19/18 12:06 Dose: 100 mls/hr Documented by: Metronidazole (Flagyl 500 Mg/100 Ml) 500 mg in 100 mls @ 100 mls/hr IV Q8H [facility]; Protocol Last Admin: 07/19/18 12:05 Dose: 100 mls/hr Documented by: Cefepime HCl (Maxipime/Ns 2 Gm/100 Ml) 2 gm in 100 mls @ 200 mls/hr IV Q12HR [facility]; Protocol Last Admin: 07/19/18 14:32 Dose: 200 mls/hr Documented by: Insulin Human Lispro (Humalog) 0 unit SUB-Q Q4H [facility]; Protocol Last Admin: 07/19/18 12:15 Dose: Not Given Documented by: Morphine Sulfate (Morphine) 2 mg IV Q4H PRN PRN Reason: Pain , Severe (7-10) Pantoprazole Sodium (Protonix) 40 mg IV QDAY [facility] Last Admin: 07/19/18 12:05 Dose: 40 mg Documented by: Pneumococcal Polyvalent Vaccine (Pneumovax 23) 0.5 ml IM .ONCE ONE Stop: 07/20/18 12:01 Review of Systems - Review of Systems Constitutional: fever, chills, fatigue, poor appetite, no weight loss, no weight gain Cardiovascular: no chest pain Respiratory: no cough Gastrointestinal: abdominal pain, nausea, vomiting, no diarrhea, no constipation, no change in bowel habits, no hematemesis, no coffee ground emesis, no BRBPR, no melena Exam - Constitutional Vital Signs: Temp Pulse Resp BP Pulse Ox 101.3 F H 100 H 22 181/71 91 07/19/18 14:15 07/19/18 14:34 07/19/18 14:15 07/19/18 14:34 07/19/18 14:22 General appearance: no acute distress, well-nourished - EENT Eyes: PERRL ENT: hearing intact, clear oral mucosa, dentition normal - Neck Neck: supple, normal ROM, no masses or JVD - Respiratory Respiratory effort: normal Respiratory: bilateral: CTA - Breasts Breasts: deferred - Cardiovascular Rhythm: regular Heart Sounds: Present: S1 & S2. Absent: gallop, rub Extremities: pulses intact, No edema, normal color, Full ROM - Gastrointestinal General gastrointestinal: Present: soft, non-distended, normal bowel sounds, other (mild tenderness to palpation on right abdomen) - Integumentary Integumentary: Present: clear, warm, dry - Neurologic Neurological: alert and oriented x3 - Psychiatric Psychiatric: appropriate mood/affect, intact judgment & insight, memory intact - Labs CBC & Chem 7: 07/19/18 02:50 07/19/18 02:50 Lab Results: Laboratory Results - last 24 hr 07/18/18 07/18/18 07/18/18 20:28 20:48 20:48 WBC 12.3 H RBC 3.47 L Hgb 9.1 L Hct 28.9 L MCV 83 MCH 26 L MCHC 32 RDW 16.1 H Plt Count 473 H Lymph % (Auto) 5.4 L [place] % (Auto) 6.4 Eos % (Auto) 0.5 Baso % (Auto) 1.2 Lymph # 0.7 L [place] # 0.8 Eos # 0.1 Baso # 0.1 Seg Neutrophils % 86.5 H Seg Neutrophils # 10.7 H PT 14.4 INR 1.08 APTT Sodium Potassium Chloride Carbon Dioxide Anion Gap BUN Creatinine Estimated GFR BUN/Creatinine Ratio Glucose POC Glucose 109 H Lactic Acid Calcium Total Bilirubin AST ALT Alkaline Phosphatase Total Creatine Kinase CK-MB (CK-2) CK-MB (CK-2) Rel Index Troponin T NT-Pro-B Natriuret Pep Total Protein Albumin Albumin/Globulin Ratio Urine Color Urine Turbidity Urine pH Ur Specific Mustang Urine Protein Urine Glucose (UA) Urine Ketones Urine Blood Urine Nitrite Urine Bilirubin Urine Urobilinogen Ur Leukocyte Esterase Urine WBC (Auto) Urine RBC (Auto) U Epithel Cells (Auto) Urine Mucus 07/18/18 07/18/18 07/18/18 20:48 20:48 20:48 WBC RBC Hgb Hct MCV MCH MCHC RDW Plt Count Lymph % (Auto) Alpine % (Auto) Eos % (Auto) Baso % (Auto) Lymph # Alpine # Eos # Baso # Seg Neutrophils % Seg Neutrophils # PT INR APTT 23.2 L Sodium 137 Potassium 4.0 Chloride 100.3 Carbon Dioxide 24 Anion Gap 17 BUN 15 Creatinine 1.0 Estimated GFR > 60 BUN/Creatinine Ratio 15 Glucose 108 H POC Glucose Lactic Acid Calcium 8.8 Total Bilirubin 0.20 AST 13 ALT 9 Alkaline Phosphatase 87 Total Creatine Kinase 48 CK-MB (CK-2) < 1.0 CK-MB (CK-2) Rel Index 2.0 Troponin T 0.025 NT-Pro-B Natriuret Pep 462.4 Total Protein 7.5 Albumin 3.1 L Albumin/Globulin Ratio 0.7 Urine Color Urine Turbidity Urine pH Ur Specific Mustang Urine Protein Urine Glucose (UA) Urine Ketones Urine Blood Urine Nitrite Urine Bilirubin Urine Urobilinogen Ur Leukocyte Esterase Urine WBC (Auto) Urine RBC (Auto) U Epithel Cells (Auto) Urine Mucus 07/18/18 07/18/18 07/19/18 21:49 23:12 02:50 WBC 10.5 RBC 3.35 L Hgb 9.0 L Hct 27.9 L MCV 83 MCH 27 L MCHC 32 RDW 15.8 H Plt Count 434 Lymph % (Auto) Alpine % (Auto) Eos % (Auto) Baso % (Auto) Lymph # Alpine # Eos # Baso # Seg Neutrophils % Seg Neutrophils # PT INR APTT Sodium Potassium Chloride Carbon Dioxide Anion Gap BUN Creatinine Estimated GFR BUN/Creatinine Ratio Glucose POC Glucose 106 H Lactic Acid Calcium Total Bilirubin AST ALT Alkaline Phosphatase Total Creatine Kinase CK-MB (CK-2) CK-MB (CK-2) Rel Index Troponin T NT-Pro-B Natriuret Pep Total Protein Albumin Albumin/Globulin Ratio Urine Color Yellow Urine Turbidity Clear Urine pH 5.0 Ur Specific Mustang 1.019 Urine Protein <15 mg/dl Urine Glucose (UA) Neg Urine Ketones Neg Urine Blood Neg Urine Nitrite Neg Urine Bilirubin Neg Urine Urobilinogen 4.0 Ur Leukocyte Esterase Neg Urine WBC (Auto) 2.0 Urine RBC (Auto) < 1.0 U Epithel Cells (Auto) 3.0 Urine Mucus Few 07/19/18 07/19/18 07/19/18 02:50 08:00 11:46 WBC RBC Hgb Hct MCV MCH MCHC RDW Plt Count Lymph % (Auto) Alpine % (Auto) Eos % (Auto) Baso % (Auto) Lymph # Alpine # Eos # Baso # Seg Neutrophils % Seg Neutrophils # PT INR APTT Sodium 136 L Potassium 4.6 Chloride 98.8 Carbon Dioxide 25 Anion Gap 17 BUN 15 Creatinine 0.9 Estimated GFR > 60 BUN/Creatinine Ratio 17 Glucose 105 H POC Glucose 131 H 152 H Lactic Acid Calcium 8.7 Total Bilirubin AST ALT Alkaline Phosphatase Total Creatine Kinase CK-MB (CK-2) CK-MB (CK-2) Rel Index Troponin T NT-Pro-B Natriuret Pep Total Protein Albumin Albumin/Globulin Ratio Urine Color Urine Turbidity Urine pH Ur Specific [place]ang Urine Protein Urine Glucose (UA) Urine Ketones Urine Blood Urine Nitrite Urine Bilirubin Urine Urobilinogen Ur Leukocyte Esterase Urine WBC (Auto) Urine RBC (Auto) U Epithel Cells (Auto) Urine Mucus 07/19/18 07/19/18 13:03 13:46 WBC RBC Hgb Hct MCV MCH MCHC RDW Plt Count Lymph % (Auto) Alpine % (Auto) Eos % (Auto) Baso % (Auto) Lymph # Alpine # Eos # Baso # Seg Neutrophils % Seg Neutrophils # PT INR APTT Sodium Potassium Chloride Carbon Dioxide Anion Gap BUN Creatinine Estimated GFR BUN/Creatinine Ratio Glucose POC Glucose 152 H Lactic Acid 0.80 Calcium Total Bilirubin AST ALT Alkaline Phosphatase Total Creatine Kinase CK-MB (CK-2) CK-MB (CK-2) Rel Index Troponin T NT-Pro-B Natriuret Pep Total Protein Albumin Albumin/Globulin Ratio Urine Color Urine Turbidity Urine pH Ur Specific [place]ang Urine Protein Urine Glucose (UA) Urine Ketones Urine Blood Urine Nitrite Urine Bilirubin Urine Urobilinogen Ur Leukocyte Esterase Urine WBC (Auto) Urine RBC (Auto) U Epithel Cells (Auto) Urine Mucus - Imaging CT Scan: report reviewed Assessment and Plan # Nausea/vomiting # Abnormal CT abdomen/pelvis with possible diverticulitis, appendicitis, vs microperforation. # Fever - currently on conservative management with IV antibiotics - general surgery and ID on board Rec: - agree with empiric IV antibiotics - monitor for clinical response. - will follow. may need outpatient colonoscopy once acute illness resolve. - Patient Problems (1) Abdominal pain Current Visit: Yes Status: Acute Qualifiers: Abdominal location: right lower quadrant Qualified Code(s): R10.31 - Right lower quadrant pain
--- NOTE | 2018-07-19 15:44 | Consultation ---
REASON FOR CONSULTATION: Right lower quadrant inflammation, rule out ruptured appendix versus diverticulitis with phlegmon formation. HISTORY OF PRESENT ILLNESS: The patient is an 87-year-old female who presented to the hospital with recent history of falls. The patient's family member states she has fallen 3 times over the last month or so. Denies any loss of consciousness. States she more so " The patient appears to be somewhat somnolent at this time, though she claims she has received no narcotics. On workup, a CT scan was performed, which revealed extensive pericecal inflammatory changes, rule out possible ruptured appendix versus diverticulitis with phlegmon? 3. Ruled out possible self-contained microperforation from diverticulitis? 4. Ruled out possible necrotic tumor. PAST MEDICAL HISTORY: The patient states a past medical history of diabetes, congestive heart failure, and hypertension. Denies any abdominal pain at present. PAST SURGICAL HISTORY: Status post REGINA. MEDICATIONS: Include insulin, Lasix, NSAIDS, metoprolol and losartan for her blood pressure. FAMILY HISTORY: Hypertension, diabetes, heart disease. SOCIAL HISTORY: She was an occasional drinker and did smoke, but quit both over 20 years ago. PHYSICAL EXAMINATION: GENERAL: At this time reveals the patient to be as mentioned somewhat somnolent, but responding to commands and oriented. VITAL SIGNS: Show her to be running a low low-grade temperature of 100.3, blood pressure is 195/55, pulse of 106, respirations 20. ABDOMEN: Examination of the abdomen reveals her to be morbidly obese. The abdomen itself is soft and nontender. There is a questionable palpable mass in the right lower quadrant of the abdomen. LABORATORY DATA: Lab work at present includes a CBC, which shows a white count of 10.5, down from 12.3 on admission. H and H is 9 and 27.9. Electrolytes are essentially within normal limits. Glucose is 105. LFTs were also normal. A CT scan of the abdomen was performed, whose findings I have described above. ASSESSMENT AND PLAN: Impression at this time is that of an 87-year-old female with a multitude of medical problems includin. Diabetes, hypertension, congestive heart failure. 2. Pericecal inflammation/mass noted on CT scan. Rule out diverticulitis with phlegmon versus possible necrotic tumor. RECOMMENDATIONS: At this time, we would keep the patient n.p.o. on IV fluid hydration. Recommend ID evaluation to begin antibiotic therapy. Also, the patient will subsequently need GI evaluation for colonoscopy once her acute episode subsides. We will follow and monitor closely with you. Thank you very much for consultation. JOB# [id number]
[2018-07-19] MEDS ORDERED: ZOFRAN IV PRN (16:05)
--- NOTE | 2018-07-19 17:00 | Progress Note ---
Subjective Date of service: 07/19/18 Interval history: Patient admitted to the hospital with altered mental status and abdominal discomfort found to have colitis on CT scan. Incidental finding of mural thrombus in the suprarenal portion of the abdominal aorta prompting cardiology and vascular evaluation. This is a fairly common incidental finding and does not represent significant pathology associated with her admission. We'll defer formal evaluation until such time as her abdomen can be examined probably as an outpatient. The presence of mural thrombus is common in this age group and should not affect the decision on current management of her medical issues. Objective - Constitutional Vitals: Vital Signs - 12hr 07/19/18 07/19/18 07/19/18 05:00 05:16 05:30 Temperature Pulse Rate 74 71 74 Respiratory 25 H 26 H 23 Rate Blood Pressure 134/63 151/127 151/127 O2 Sat by Pulse 80 L 89 84 Oximetry 07/19/18 07/19/18 07/19/18 05:46 06:00 10:08 Temperature Pulse Rate 73 74 Respiratory 30 H 29 H Rate Blood Pressure 151/69 151/69 O2 Sat by Pulse 90 93 94 Oximetry 07/19/18 07/19/18 07/19/18 10:16 10:37 11:09 Temperature 100.3 F H Pulse Rate 106 H Respiratory 20 20 Rate Blood Pressure 149/67 195/55 O2 Sat by Pulse 94 97 87 Oximetry 07/19/18 07/19/18 07/19/18 11:10 14:15 14:22 Temperature 101.3 F H Pulse Rate 104 H 100 H 104 H Respiratory 22 Rate Blood Pressure 181/71 O2 Sat by Pulse 99 87 91 Oximetry 07/19/18 14:34 Temperature Pulse Rate 100 H Respiratory Rate Blood Pressure 181/71 O2 Sat by Pulse Oximetry - Labs CBC & Chem 7: 07/19/18 02:50 07/19/18 02:50 Labs: Abnormal lab results 07/18/18 07/18/18 07/18/18 Range/Units 20:28 20:48 20:48 WBC 12.3 H (4.5-11.0) K/mm3 RBC 3.47 L (3.65-5.03) M/mm3 Hgb 9.1 L (10.1-14.3) gm/dl Hct 28.9 L (30.3-42.9) % MCH 26 L (28-32) pg RDW 16.1 H (13.2-15.2) % Plt Count 473 H (140-440) K/mm3 Lymph % (Auto) 5.4 L (13.4-35.0) % Lymph # 0.7 L (1.2-5.4) K/mm3 Seg Neutrophils % 86.5 H (40.0-70.0) % Seg Neutrophils # 10.7 H (1.8-7.7) K/mm3 APTT (24.2-36.6) Sec. Sodium (137-145) mmol/L Glucose 108 H (65-100) mg/dL POC Glucose 109 H (70-105) Albumin 3.1 L (3.9-5) g/dL 07/18/18 07/18/18 07/19/18 Range/Units 20:48 23:12 02:50 WBC (4.5-11.0) K/mm3 RBC 3.35 L (3.65-5.03) M/mm3 Hgb 9.0 L (10.1-14.3) gm/dl Hct 27.9 L (30.3-42.9) % MCH 27 L (28-32) pg RDW 15.8 H (13.2-15.2) % Plt Count (140-440) K/mm3 Lymph % (Auto) (13.4-35.0) % Lymph # (1.2-5.4) K/mm3 Seg Neutrophils % (40.0-70.0) % Seg Neutrophils # (1.8-7.7) K/mm3 APTT 23.2 L (24.2-36.6) Sec. Sodium (137-145) mmol/L Glucose (65-100) mg/dL POC Glucose 106 H (70-105) Albumin (3.9-5) g/dL 07/19/18 07/19/18 07/19/18 Range/Units 02:50 08:00 11:46 WBC (4.5-11.0) K/mm3 RBC (3.65-5.03) M/mm3 Hgb (10.1-14.3) gm/dl Hct (30.3-42.9) % MCH (28-32) pg RDW (13.2-15.2) % Plt Count (140-440) K/mm3 Lymph % (Auto) (13.4-35.0) % Lymph # (1.2-5.4) K/mm3 Seg Neutrophils % (40.0-70.0) % Seg Neutrophils # (1.8-7.7) K/mm3 APTT (24.2-36.6) Sec. Sodium 136 L (137-145) mmol/L Glucose 105 H (65-100) mg/dL POC Glucose 131 H 152 H (70-105) Albumin (3.9-5) g/dL 07/19/18 07/19/18 Range/Units 13:46 15:34 WBC (4.5-11.0) K/mm3 RBC (3.65-5.03) M/mm3 Hgb (10.1-14.3) gm/dl Hct (30.3-42.9) % MCH (28-32) pg RDW (13.2-15.2) % Plt Count (140-440) K/mm3 Lymph % (Auto) (13.4-35.0) % Lymph # (1.2-5.4) K/mm3 Seg Neutrophils % (40.0-70.0) % Seg Neutrophils # (1.8-7.7) K/mm3 APTT (24.2-36.6) Sec. Sodium (137-145) mmol/L Glucose (65-100) mg/dL POC Glucose 152 H 182 H (70-105) Albumin (3.9-5) g/dL Medications & Allergies - Medications Allergies/Adverse Reactions: Allergies No Known Allergies Allergy (Unverified 07/18/18 20:42) Home Medications: Home Medications Medication Instructions Recorded Confirmed Last Taken Type Furosemide [Lasix] 20 mg PO DAILY 07/19/18 07/19/18 07/18/18 History Insulin Aspart [Novolog Flexpen] 100 unit SQ TID 07/19/18 07/19/18 07/18/18 History Losartan Potassium [Cozaar] 50 mg PO DAILY 07/19/18 07/19/18 07/18/18 History Metoprolol Xl [Metoprolol 25 mg PO QDAY 07/19/18 07/19/18 07/18/18 History SUCCINATE ER TAB] Naproxen 500 mg PO BID 07/19/18 07/19/18 07/18/18 History Ranitidine HCl [Acid Control] 150 mg PO BID 07/19/18 07/19/18 07/18/18 History Active Medications: Generic Name Dose Route Start Last Admin Trade Name Freq PRN Reason Stop Dose Admin Dextrose 50 ml 07/19/18 02:51 D50w (25gm) Syringe IV PRN PRN Hypoglycemia Enalaprilat 1.25 mg 07/19/18 18:00 Vasotec IV Q6HR [facility] Heparin Sodium (Porcine) 5,000 unit 07/20/18 10:00 Heparin SUB-Q Q12HR [facility] Hydralazine HCl 10 mg 07/19/18 13:35 07/19/18 14:34 Apresoline IV 10 mg Q4HR PRN Administration Hypertension Sodium Chloride 1,000 mls @ 100 mls/hr 07/19/18 03:00 07/19/18 12:06 Nacl 0.9% 1000 Ml IV 100 mls/hr DIRECT TRINY Administration Metronidazole 500 mg in 100 mls @ 100 mls/hr 07/19/18 10:00 07/19/18 12:05 Flagyl 500 Mg/100 Ml IV 100 mls/hr Q8H TRINY Administration Protocol Cefepime HCl 2 gm in 100 mls @ 200 mls/hr 07/19/18 14:30 07/19/18 14:32 Maxipime/Ns 2 Gm/100 Ml IV 200 mls/hr Q12HR TRINY Administration Protocol Insulin Human Lispro 0 unit 07/19/18 03:00 07/19/18 15:34 Humalog SUB-Q Not Given Q4H [facility] Protocol Morphine Sulfate 2 mg 07/19/18 02:41 Morphine IV Q4H PRN Pain , Severe (7-10) Ondansetron HCl 4 mg 07/19/18 16:05 Zofran IV 07/21/18 23:59 Q8H PRN Nausea And Vomiting Pantoprazole Sodium 40 mg 07/19/18 10:00 07/19/18 12:05 Protonix IV 40 mg QDAY TRINY Administration Pneumococcal Polyvalent Vaccine 0.5 ml 07/20/18 12:00 Pneumovax 23 IM 07/20/18 12:01 .ONCE ONE
[2018-07-19] MEDS: VASOTEC IV SCH ×2 (18:09→23:22)
[2018-07-20] MEDS: APRESOLINE IV PRN ×3 (00:57→13:32)
[2018-07-20] MEDS: NACL 0.9% 1000 ML 1,000 ML IV SCH ×2 (01:29→15:12)
[2018-07-20] MEDS: FLAGYL 500 MG/100 ML 500 MG/100 ML BAG IV SCH ×3 (01:32→18:01)
[2018-07-20] MEDS: HumaLOG SUB-Q SCH ×6 (04:10→23:37)
[2018-07-20] MEDS: VASOTEC IV SCH ×4 (06:12→23:34)
[2018-07-20 07:06] LABS: Basophils # (Auto) 0.1 K/mm3 (0.0-0.1); Basophils % (Auto) 0.8 % (0.0-1.8); Hematocrit 29.3 % (30.3-42.9); Hemoglobin 9.2 gm/dl (10.1-14.3); Lymphocytes # (Auto) 1.4 K/mm3 (1.2-5.4); Mean Corpuscular HGB Conc 32 % (30-34); Mean Corpuscular Volume 84 fl (79-97); Monocytes # (Auto) 0.8 K/mm3 (0.0-0.8); Monocytes % (Auto) 6.4 % (0.0-7.3); Platelet Count 414 K/mm3 (140-440); Red Blood Count 3.51 M/mm3 (3.65-5.03); Red Cell Distribution Width 15.9 % (13.2-15.2)
[2018-07-20 07:27] LABS: Alanine Aminotransferase 8 units/L (7-56); Albumin 2.8 g/dL (3.9-5); BUN/Creatinine Ratio 9; Blood Urea Nitrogen 8 mg/dL (7-17); Calcium 8.3 mg/dL (8.4-10.2); Hemolysis Index 5
[2018-07-20] MEDS: MAXIPIME/NS 2 GM/100 ML 2 GM/100 ML BAG IV SCH ×2 (09:47→22:31)
[2018-07-20] MEDS: PROTONIX IV SCH (09:47)
[2018-07-20] MEDS: HEPARIN SUB-Q SCH ×2 (09:48→22:32)
[2018-07-20] MEDS: MORPHINE IV PRN (10:34)
--- NOTE | 2018-07-20 11:28 | Gastroenterology Progress Note ---
<RAISA TYSON - Last Filed: 07/20/18 11:33> Assessment and Plan 1.abd pain 2.N/V 3.abnormal CT 4.fever -temp 99.3 -WBC 11.7 -abd CT showed possible diverticulitis, appendicitis, vs microperforation -surgery and ID following -clinically, patient reports feeling better today with abd pain improving and no N/V. -clear liquids if okay with surgery -continue empiric antibiotics -recommend colonoscopy as outpatient in 6-8 weeks once acute illness is resolved Subjective Date of service: 07/20/18 Principal diagnosis: abd pain, abnormal CT Interval history: Patient resting in bed w/o acute distress and family at bedside. Reports feeling better today with abd pain improved and no N/V. Objective - Constitutional Vitals: Temp Pulse Resp BP Pulse Ox 99.3 F 88 31 H 168/85 99 07/20/18 04:00 07/20/18 09:51 07/20/18 06:41 07/20/18 09:51 07/20/18 06:41 General appearance: no acute distress - Respiratory Respiratory: bilateral: CTA (anterior) - Cardiovascular Rhythm: regular Heart Sounds: Present: S1 & S2 - Gastrointestinal General gastrointestinal: Present: soft, non-tender, non-distended, normal bowel sounds - Labs CBC & Chem 7: 07/20/18 06:47 07/20/18 06:47 Labs: Laboratory Results - last 24 hr 07/19/18 07/19/18 07/19/18 11:46 13:03 13:46 WBC RBC Hgb Hct MCV MCH MCHC RDW Plt Count Lymph % (Auto) Drew % (Auto) Eos % (Auto) Baso % (Auto) Lymph # Drew # Eos # Baso # Seg Neutrophils % Seg Neutrophils # Sodium Potassium Chloride Carbon Dioxide Anion Gap BUN Creatinine Estimated GFR BUN/Creatinine Ratio Glucose POC Glucose 152 H 152 H Lactic Acid 0.80 Calcium Total Bilirubin AST ALT Alkaline Phosphatase Total Protein Albumin Albumin/Globulin Ratio 07/19/18 07/19/18 07/19/18 15:34 17:04 20:42 WBC RBC Hgb Hct MCV MCH MCHC RDW Plt Count Lymph % (Auto) Drew % (Auto) Eos % (Auto) Baso % (Auto) Lymph # Drew # Eos # Baso # Seg Neutrophils % Seg Neutrophils # Sodium Potassium Chloride Carbon Dioxide Anion Gap BUN Creatinine Estimated GFR BUN/Creatinine Ratio Glucose POC Glucose 182 H 187 H Lactic Acid 1.10 Calcium Total Bilirubin AST ALT Alkaline Phosphatase Total Protein Albumin Albumin/Globulin Ratio 07/19/18 07/20/18 07/20/18 23:05 02:15 06:14 WBC RBC Hgb Hct MCV MCH MCHC RDW Plt Count Lymph % (Auto) Drew % (Auto) Eos % (Auto) Baso % (Auto) Lymph # Drew # Eos # Baso # Seg Neutrophils % Seg Neutrophils # Sodium Potassium Chloride Carbon Dioxide Anion Gap BUN Creatinine Estimated GFR BUN/Creatinine Ratio Glucose POC Glucose 133 H 154 H 137 H Lactic Acid Calcium Total Bilirubin AST ALT Alkaline Phosphatase Total Protein Albumin Albumin/Globulin Ratio 07/20/18 07/20/18 06:47 06:47 WBC 11.7 H RBC 3.51 L Hgb 9.2 L Hct 29.3 L MCV 84 MCH 26 L MCHC 32 RDW 15.9 H Plt Count 414 Lymph % (Auto) 12.0 L Drew % (Auto) 6.4 Eos % (Auto) 0.0 Baso % (Auto) 0.8 Lymph # 1.4 Drew # 0.8 Eos # 0.0 Baso # 0.1 Seg Neutrophils % 80.8 H Seg Neutrophils # 9.4 H Sodium 141 Potassium 4.2 Chloride 105.7 Carbon Dioxide 22 Anion Gap 18 BUN 8 Creatinine 0.9 Estimated GFR > 60 BUN/Creatinine Ratio 9 Glucose 126 H POC Glucose Lactic Acid Calcium 8.3 L Total Bilirubin 0.20 AST 17 ALT 8 Alkaline Phosphatase 73 Total Protein 7.2 Albumin 2.8 L Albumin/Globulin Ratio 0.6 <RHINA YANCEY R - Last Filed: 07/20/18 15:50> Assessment and Plan Pt doing well. Abd soft, NT. Would recommend advancing diet as per Surgery, and continue abx. Will need outpatient colonoscopy after 2-3 wks, to allow resolution of inflammation. Will sign off. Please call as needed. Objective - Constitutional Vitals: Temp Pulse Resp BP Pulse Ox 100.4 F H 125 H 24 198/87 96 07/20/18 12:00 07/20/18 15:08 07/20/18 12:31 07/20/18 15:08 07/20/18 14:13 - Labs CBC & Chem 7: 07/20/18 06:47 07/20/18 06:47 Labs: Laboratory Results - last 24 hr 07/19/18 07/19/18 07/19/18 15:34 17:04 20:42 WBC RBC Hgb Hct MCV MCH MCHC RDW Plt Count Lymph % (Auto) Drew % (Auto) Eos % (Auto) Baso % (Auto) Lymph # Drew # Eos # Baso # Seg Neutrophils % Seg Neutrophils # Sodium Potassium Chloride Carbon Dioxide Anion Gap BUN Creatinine Estimated GFR BUN/Creatinine Ratio Glucose POC Glucose 182 H 187 H Lactic Acid 1.10 Calcium Total Bilirubin AST ALT Alkaline Phosphatase Total Protein Albumin Albumin/Globulin Ratio 07/19/18 07/20/18 07/20/18 23:05 02:15 06:14 WBC RBC Hgb Hct MCV MCH MCHC RDW Plt Count Lymph % (Auto) Drew % (Auto) Eos % (Auto) Baso % (Auto) Lymph # Drew # Eos # Baso # Seg Neutrophils % Seg Neutrophils # Sodium Potassium Chloride Carbon Dioxide Anion Gap BUN Creatinine Estimated GFR BUN/Creatinine Ratio Glucose POC Glucose 133 H 154 H 137 H Lactic Acid Calcium Total Bilirubin AST ALT Alkaline Phosphatase Total Protein Albumin Albumin/Globulin Ratio 07/20/18 07/20/18 07/20/18 06:47 06:47 12:01 WBC 11.7 H RBC 3.51 L Hgb 9.2 L Hct 29.3 L MCV 84 MCH 26 L MCHC 32 RDW 15.9 H Plt Count 414 Lymph % (Auto) 12.0 L Drew % (Auto) 6.4 Eos % (Auto) 0.0 Baso % (Auto) 0.8 Lymph # 1.4 Drew # 0.8 Eos # 0.0 Baso # 0.1 Seg Neutrophils % 80.8 H Seg Neutrophils # 9.4 H Sodium 141 Potassium 4.2 Chloride 105.7 Carbon Dioxide 22 Anion Gap 18 BUN 8 Creatinine 0.9 Estimated GFR > 60 BUN/Creatinine Ratio 9 Glucose 126 H POC Glucose 157 H Lactic Acid Calcium 8.3 L Total Bilirubin 0.20 AST 17 ALT 8 Alkaline Phosphatase 73 Total Protein 7.2 Albumin 2.8 L Albumin/Globulin Ratio 0.6
[2018-07-20] MEDS ORDERED: PNEUMOVAX 23 IM ONE (12:00)
[2018-07-20] MEDS ORDERED: AFLURIA QUAD 2018-2019 SYRINGE IM ONE (12:00)
--- NOTE | 2018-07-20 12:10 | Progress Note ---
Assessment and Plan Assessment and plan: Patient is 87 yo woman with a history of DM, CHF and hypertension who presents to [facility] ED via EMS with AMS, falling at home, feeling hot, blood glucose was in the 40s and she was given oral glucose by EMS prior to arrival. Associated with falling is diaphoresis, lose of appetite, n/v, sob x 1 day. This is patient 3rd fall at home. She did complain of right upper quadrant, sharp intermittent severe, aggravated by certain movement, relieved by different positions. * CTAP with IV contrast IMPRESSION: Extensive inflammatory changes involving the cecum and proximal ascending colon extending posteriorly with pericolonic stranding. Diagnostic consideration would include appendicitis with p erforation presuming the patient still has her appendix. The other possibility is severe diverticulitis with probable perforation. Extensive colonic diverticulosis. Uncomplicated cysts in both kidneys. Hysterectomy. Multilevel disc degeneration in the lumbar spine. Incidental note is made of a crescent- shaped area of mural thrombus at the thoracoabdominal junction involving the aorta. A remote dissection cannot entirely be excluded. * CTA chest pains IMPRESSION: 1. No evidence of pulmonary embolism. 2. Mild cardiomegaly 3. Lingular subsegmental atelectasis versus parenchymal scar 4. 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 No evidence of acute infarct or intracra nial hemorrhage. 2. White matter lucency consistent with chronic microvascular ischemic disease. * pCXR IMPRESSION: Subpleural effusion and cardiomegaly Hypertensive urgency: Initial Plan was to transfer patient to ICU for cardene drip. But patient is now able to tolerate PO intake. 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 Will hold Recurrent falls with episodes of hypoglycemia: hold DM medication(s), treat with dextrose, accuchecks Sepsis (late find in ED,so I ordered lactic acid x 2, and IVF) with suspected perforated bowel from appendix vs diverticuli: lactic acid, treat with iv abx, ivf, npo, Dr. Wooten notified and wants a CT with oral contrast prior to leaving ED. ID input noted. Cefepime and flagyl Acute metabolic encephalopathy: treat the hypoglycemia and sepsis 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: consulted Cardiology IDDM: [id number] DVT/GI prophylaxis: sq heparin, IV ppi full code Disposition: inpatient halfway reconciliation: no meds entered, asked Rn to obtain home meds History Interval history: Patient admitted with sepsis. Patient seen and examined this am, remains with some abdominal pain. Hospitalist Physical - Physical exam Narrative exam: Gen: WDWN, NAD, Awake, Alert, Orientated HEENT: NCAT, EOMI, PERRL, OP Clear Neck: supple, no adenopathy, no thyromegaly, no JVD CVS/Heart: RRR, normal S1S2, pulses present bilaterally Chest/Lungs: diminished bs bilateral, Symmetrical chest expansion, good air entry bilaterally GI/Abdomen: soft, non tender, good bowel sounds, no guarding or rebound /Bladder: no suprapubic tenderness, no CVA or paraspinal tenderness Extermity/Skin: no c/c/e, no obvious rash MSK: FROM x 4 Neuro: CN 2-12 grossly intact, no new focal deficits Psych: calm - Constitutional Vitals: Temp Pulse Resp BP Pulse Ox 99.3 F 118 H 31 H 170/98 99 07/20/18 04:00 07/20/18 11:56 07/20/18 06:41 07/20/18 11:56 07/20/18 06:41 Results - Labs CBC & Chem 7: 07/20/18 06:47 07/20/18 06:47 Labs: Laboratory Last Values WBC 11.7 K/mm3 (4.5-11.0) H 07/20/18 06:47 RBC 3.51 M/mm3 (3.65-5.03) L 07/20/18 06:47 Hgb 9.2 gm/dl (10.1-14.3) L 07/20/18 06:47 Hct 29.3 % (30.3-42.9) L 07/20/18 06:47 MCV 84 fl (79-97) 07/20/18 06:47 MCH 26 pg (28-32) L 07/20/18 06:47 MCHC 32 % (30-34) 07/20/18 06:47 RDW 15.9 % (13.2-15.2) H 07/20/18 06:47 Plt Count 414 K/mm3 (140-440) 07/20/18 06:47 Lymph % (Auto) 12.0 % (13.4-35.0) L 07/20/18 06:47 Hawkins % (Auto) 6.4 % (0.0-7.3) 07/20/18 06:47 Eos % (Auto) 0.0 % (0.0-4.3) 07/20/18 06:47 Baso % (Auto) 0.8 % (0.0-1.8) 07/20/18 06:47 Lymph # 1.4 K/mm3 (1.2-5.4) 07/20/18 06:47 Hawkins # 0.8 K/mm3 (0.0-0.8) 07/20/18 06:47 Eos # 0.0 K/mm3 (0.0-0.4) 07/20/18 06:47 Baso # 0.1 K/mm3 (0.0-0.1) 07/20/18 06:47 Seg Neutrophils % 80.8 % (40.0-70.0) H 07/20/18 06:47 Seg Neutrophils # 9.4 K/mm3 (1.8-7.7) H 07/20/18 06:47 PT 14.4 Sec. (12.2-14.9) 07/18/18 20:48 INR 1.08 (0.87-1.13) 07/18/18 20:48 APTT 23.2 Sec. (24.2-36.6) L 07/18/18 20:48 Sodium 141 mmol/L (137-145) 07/20/18 06:47 Potassium 4.2 mmol/L (3.6-5.0) 07/20/18 06:47 Chloride 105.7 mmol/L (98-107) 07/20/18 06:47 Carbon Dioxide 22 mmol/L (22-30) 07/20/18 06:47 Anion Gap 18 mmol/L 07/20/18 06:47 BUN 8 mg/dL (7-17) 07/20/18 06:47 Creatinine 0.9 mg/dL (0.7-1.2) 07/20/18 06:47 Estimated GFR > 60 ml/min 07/20/18 06:47 BUN/Creatinine Ratio 9 % 07/20/18 06:47 Glucose 126 mg/dL (65-100) H 07/20/18 06:47 POC Glucose 157 (70-105) H 07/20/18 12:01 Lactic Acid 1.10 mmol/L (0.7-2.0) 07/19/18 17:04 Calcium 8.3 mg/dL (8.4-10.2) L 07/20/18 06:47 Total Bilirubin 0.20 mg/dL (0.1-1.2) 07/20/18 06:47 AST 17 units/L (5-40) 07/20/18 06:47 ALT 8 units/L (7-56) 07/20/18 06:47 Alkaline Phosphatase 73 units/L (35-129) 07/20/18 06:47 Total Creatine Kinase 48 units/L (30-135) 07/18/18 20:48 CK-MB (CK-2) < 1.0 ng/mL (0.0-4.0) 07/18/18 20:48 CK-MB (CK-2) Rel Index 2.0 (0-4) 07/18/18 20:48 Troponin T 0.025 ng/mL (0.00-0.029) 07/18/18 20:48 NT-Pro-B Natriuret Pep 462.4 pg/mL (0-900) 07/18/18 20:48 Total Protein 7.2 g/dL (6.3-8.2) 07/20/18 06:47 Albumin 2.8 g/dL (3.9-5) L 07/20/18 06:47 Albumin/Globulin Ratio 0.6 % 07/20/18 06:47 Urine Color Yellow (Yellow) 07/18/18 21:49 Urine Turbidity Clear (Clear) 07/18/18 21:49 Urine pH 5.0 (5.0-7.0) 07/18/18 21:49 Ur Specific [place] 1.019 (1.003-1.030) 07/18/18 21:49 Urine Protein <15 mg/dl mg/dL (Negative) 07/18/18 21:49 Urine Glucose (UA) Neg mg/dL (Negative) 07/18/18 21:49 Urine Ketones Neg mg/dL (Negative) 07/18/18 21:49 Urine Blood Neg (Negative) 07/18/18 21:49 Urine Nitrite Neg (Negative) 07/18/18 21:49 Urine Bilirubin Neg (Negative) 07/18/18 21:49 Urine Urobilinogen 4.0 mg/dL (<2.0) 07/18/18 21:49 Ur Leukocyte Esterase Neg (Negative) 07/18/18 21:49 Urine WBC (Auto) 2.0 /HPF (0.0-6.0) 07/18/18 21:49 Urine RBC (Auto) < 1.0 /HPF (0.0-6.0) 07/18/18 21:49 U Epithel Cells (Auto) 3.0 /HPF (0-13.0) 07/18/18 21:49 Urine Mucus Few /HPF 07/18/18 21:49 - Imaging and Cardiology CT scan - abdomen: image reviewed (possible microperforation)
--- NOTE | 2018-07-20 12:43 | Progress Note ---
Assessment and Plan Pt status quo GI & ID eval appreciated Abd soft. non tender surgically stable rec keep NPO except for ice chips and meds consider TPN f/u CT in 5-6 days Selected Entries 07/20/18 07/20/18 04:00 05:31 Temperature 99.3 F Pulse Rate 96 H Respiratory 30 H Rate Blood Pressure 162/60 Laboratory Tests 07/19/18 07/20/18 07/20/18 02:50 06:47 06:47 WBC 11.7 H Hgb 9.0 L 9.2 L Hct 27.9 L 29.3 L Sodium 141 Potassium 4.2 Chloride 105.7 BUN 8 Creatinine 0.9 Objective Vital Signs - 12hr 07/20/18 07/20/18 07/20/18 00:51 00:57 01:01 Temperature Pulse Rate 106 H 99 H 96 H Respiratory 32 H 25 H Rate Blood Pressure 197/72 197/72 170/73 O2 Sat by Pulse 98 87 Oximetry 07/20/18 07/20/18 07/20/18 01:11 01:21 01:31 Temperature Pulse Rate 95 H 100 H 100 H Respiratory 28 H 36 H 30 H Rate Blood Pressure 170/73 170/73 170/73 O2 Sat by Pulse 93 96 95 Oximetry 07/20/18 07/20/18 07/20/18 01:41 01:51 02:00 Temperature Pulse Rate 101 H 98 H 107 H Respiratory 16 30 H 26 H Rate Blood Pressure 170/73 170/73 170/73 O2 Sat by Pulse 95 96 96 Oximetry 07/20/18 07/20/18 07/20/18 02:11 02:21 02:31 Temperature Pulse Rate 102 H 95 H 108 H Respiratory 34 H 28 H 21 Rate Blood Pressure 170/73 170/73 170/73 O2 Sat by Pulse 98 97 97 Oximetry 07/20/18 07/20/18 07/20/18 02:41 02:51 03:00 Temperature Pulse Rate 98 H 96 H 92 H Respiratory 30 H 27 H 28 H Rate Blood Pressure 170/73 170/73 181/70 O2 Sat by Pulse 96 97 95 Oximetry 07/20/18 07/20/18 07/20/18 03:11 03:21 03:31 Temperature Pulse Rate 91 H 95 H 96 H Respiratory 30 H 33 H 30 H Rate Blood Pressure 181/70 181/70 181/70 O2 Sat by Pulse 98 98 Oximetry 07/20/18 07/20/18 07/20/18 03:41 03:51 04:00 Temperature 99.3 F Pulse Rate 90 88 Respiratory 27 H 27 H 31 H Rate Blood Pressure 181/70 181/70 O2 Sat by Pulse 97 97 95 Oximetry 07/20/18 07/20/18 07/20/18 04:01 04:11 04:21 Temperature Pulse Rate 96 H 92 H 86 Respiratory 32 H 30 H 27 H Rate Blood Pressure 175/69 175/69 175/69 O2 Sat by Pulse 95 97 Oximetry 07/20/18 07/20/18 07/20/18 04:31 04:41 04:51 Temperature Pulse Rate 88 86 86 Respiratory 23 28 H 30 H Rate Blood Pressure 175/69 175/69 175/69 O2 Sat by Pulse 97 98 Oximetry 07/20/18 07/20/18 07/20/18 05:01 05:11 05:21 Temperature Pulse Rate 84 84 98 H Respiratory 25 H 28 H 35 H Rate Blood Pressure 162/60 162/60 162/60 O2 Sat by Pulse 94 98 94 Oximetry 07/20/18 07/20/18 07/20/18 05:31 05:41 05:51 Temperature Pulse Rate 96 H 93 H 93 H Respiratory 30 H 29 H 30 H Rate Blood Pressure 162/60 162/60 162/60 O2 Sat by Pulse 98 99 Oximetry 07/20/18 07/20/18 07/20/18 06:00 06:11 06:12 Temperature Pulse Rate 94 H 95 H 93 H Respiratory 29 H 32 H Rate Blood Pressure 183/90 183/90 183/90 O2 Sat by Pulse 99 98 Oximetry 07/20/18 07/20/18 07/20/18 06:21 06:31 06:41 Temperature Pulse Rate 93 H 98 H 93 H Respiratory 26 H 30 H 31 H Rate Blood Pressure 183/90 183/90 183/90 O2 Sat by Pulse 98 99 99 Oximetry 07/20/18 07/20/18 07/20/18 06:50 07:00 07:11 Temperature Pulse Rate 99 H 93 H 99 H Respiratory 26 H 26 H 26 H Rate Blood Pressure 183/90 183/90 199/93 O2 Sat by Pulse 99 99 100 Oximetry 07/20/18 07/20/18 07/20/18 07:21 07:31 07:41 Temperature Pulse Rate 94 H 96 H 94 H Respiratory 21 28 H 28 H Rate Blood Pressure 199/93 199/93 199/93 O2 Sat by Pulse 100 100 100 Oximetry 07/20/18 07/20/18 07/20/18 07:51 08:00 08:11 Temperature Pulse Rate 93 H 94 H 88 Respiratory 28 H 23 23 Rate Blood Pressure 199/93 189/90 189/90 O2 Sat by Pulse 100 100 100 Oximetry 07/20/18 07/20/18 07/20/18 08:21 08:31 08:41 Temperature Pulse Rate 93 H 89 88 Respiratory 32 H 27 H 26 H Rate Blood Pressure 189/90 189/90 189/90 O2 Sat by Pulse 99 98 99 Oximetry 07/20/18 07/20/18 07/20/18 08:51 09:01 09:11 Temperature Pulse Rate 86 86 84 Respiratory 24 23 24 Rate Blood Pressure 189/90 168/85 168/85 O2 Sat by Pulse 99 100 100 Oximetry 07/20/18 07/20/18 07/20/18 09:21 09:31 09:41 Temperature Pulse Rate 92 H 91 H 90 Respiratory 28 H 22 27 H Rate Blood Pressure 168/85 168/85 168/85 O2 Sat by Pulse 100 100 99 Oximetry 07/20/18 07/20/18 07/20/18 09:51 10:00 10:11 Temperature Pulse Rate 84 95 H 108 H Respiratory 24 31 H 21 Rate Blood Pressure 168/85 170/73 170/73 O2 Sat by Pulse 100 97 100 Oximetry 07/20/18 07/20/18 07/20/18 10:21 10:31 10:41 Temperature Pulse Rate 107 H 117 H 114 H Respiratory 22 35 H 28 H Rate Blood Pressure 170/73 170/73 170/73 O2 Sat by Pulse 98 97 97 Oximetry 07/20/18 07/20/18 07/20/18 10:51 11:00 11:11 Temperature Pulse Rate 123 H 125 H 121 H Respiratory 20 29 H 20 Rate Blood Pressure 170/73 170/98 170/98 O2 Sat by Pulse 97 92 96 Oximetry 07/20/18 07/20/18 07/20/18 11:21 11:31 11:41 Temperature Pulse Rate 116 H 119 H 117 H Respiratory 28 H 26 H 26 H Rate Blood Pressure 170/98 170/98 170/98 O2 Sat by Pulse 96 97 98 Oximetry 07/20/18 07/20/18 07/20/18 11:51 11:56 12:00 Temperature 100.4 F H Pulse Rate 118 H 118 H 124 H Respiratory 24 28 H Rate Blood Pressure 170/98 170/98 190/101 O2 Sat by Pulse 96 93 Oximetry 07/20/18 07/20/18 07/20/18 12:11 12:21 12:31 Temperature Pulse Rate 127 H 123 H 123 H Respiratory 22 25 H 24 Rate Blood Pressure 190/101 201/134 197/89 O2 Sat by Pulse 95 96 95 Oximetry - Labs 07/20/18 06:47 07/20/18 06:47 Diabetes panel 07/20/18 Range/Units 06:47 Sodium 141 (137-145) mmol/L Potassium 4.2 (3.6-5.0) mmol/L Chloride 105.7 (98-107) mmol/L Carbon Dioxide 22 (22-30) mmol/L BUN 8 (7-17) mg/dL Creatinine 0.9 (0.7-1.2) mg/dL Glucose 126 H (65-100) mg/dL Calcium 8.3 L (8.4-10.2) mg/dL AST 17 (5-40) units/L ALT 8 (7-56) units/L Alkaline Phosphatase 73 (35-129) units/L Total Protein 7.2 (6.3-8.2) g/dL Albumin 2.8 L (3.9-5) g/dL Calcium panel 07/20/18 Range/Units 06:47 Calcium 8.3 L (8.4-10.2) mg/dL Albumin 2.8 L (3.9-5) g/dL Pituitary panel 07/20/18 Range/Units 06:47 Sodium 141 (137-145) mmol/L Potassium 4.2 (3.6-5.0) mmol/L Chloride 105.7 (98-107) mmol/L Carbon Dioxide 22 (22-30) mmol/L BUN 8 (7-17) mg/dL Creatinine 0.9 (0.7-1.2) mg/dL Glucose 126 H (65-100) mg/dL Calcium 8.3 L (8.4-10.2) mg/dL Adrenal panel 07/20/18 Range/Units 06:47 Sodium 141 (137-145) mmol/L Potassium 4.2 (3.6-5.0) mmol/L Chloride 105.7 (98-107) mmol/L Carbon Dioxide 22 (22-30) mmol/L BUN 8 (7-17) mg/dL Creatinine 0.9 (0.7-1.2) mg/dL Glucose 126 H (65-100) mg/dL Calcium 8.3 L (8.4-10.2) mg/dL Total Bilirubin 0.20 (0.1-1.2) mg/dL AST 17 (5-40) units/L ALT 8 (7-56) units/L Alkaline Phosphatase 73 (35-129) units/L Total Protein 7.2 (6.3-8.2) g/dL Albumin 2.8 L (3.9-5) g/dL
[2018-07-20] MEDS ORDERED: CARDENE 50 MG in NACL 0.9% 250ML 230 ML IV SCH (15:00)
--- NOTE | 2018-07-20 15:02 | Event Note ---
Date: 07/20/18 Called by [facility] for transfer to ICU for Kacie for BP control. Currently no beds. I have ordered labetalol 20mg IV x 1, if she responds to this then will place on labetalol IV q4-6 hours scheduled. If this controls BP by the time bed is available, then will cancel transfer. Otherwise, pending bed availability will move once bed is free
--- NOTE | 2018-07-20 15:34 | Event Note ---
Date: 07/20/18 Patient has responded well to BB therapy. Spoke with primary nurse who informed me that patient is ok to take ice chips and pills (medication). This is also documented in the surgeon note as well. unsure if primary is aware of this. Will restart home BP meds and keep labetalol as PRN therapy. Cancel transfer.
[2018-07-20] MEDS ORDERED: NORMODYNE IV ONE (15:54)
[2018-07-20] MEDS: TYLENOL PO PRN (16:19)
[2018-07-20] MEDS: COZAAR PO SCH (16:20)
[2018-07-20] MEDS: TOPROL XL PO SCH (17:06)
[2018-07-20] MEDS: NORMODYNE IV PRN (18:00)
--- NOTE | 2018-07-20 19:00 | Progress Note ---
Assessment and Plan Cultures: 07/19/2018 blood culture: no growth A/P: 87-year-old female with diabetes mellitus, congestive heart failure, HTN admitted with: #1 sepsis, present on admission likely from intra-abdominal source: Colitis versus diverticulitis versus intra-abdominal phlegmon/abscess with ?perforation: Gen. surgery following, Dr. Wooten, planning conservative management for now. Monitor fever and WBC. Continue empiric abx. #2 Acute encephalopathy: metabolic. 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 Recs: continue Cefepime and Flagyl Monitor fever and WBC Will follow. Please call with questions. Jerald Lopez MD [facility] C: [phone] O: [phone] F: [phone] Subjective Date of service: 07/20/18 Principal diagnosis: abd pain, abnormal CT Interval history: No fever. Mild abdominal pain. Remains NPO. No new concerns. Objective - Exam Narrative Exam: Physical Exam: Constitutional: Alert, cooperative. No acute distress Head, Ears, Nose: Normocephalic, atraumatic. External ears, nose normal Eyes: Conjunctivae/corneas clear. No icterus. No ptosis. Neck: Supple, no meningeal signs Cardiovascular: S1, S2 normal. Respiratory: Good air entry, clear to auscultation bilaterally GI: Soft, non tender; bowel sounds +. No rebound tenderness Musculoskeletal: No pedal edema, no cyanosis. Skin: No rash or abscess Hem/Lymphatic: No palpable cervical or supraclavicular nodes. No lymphangitis Psych: Mood ok. Affect normal Neurological: Awake, alert, oriented. No gross abnormality - Constitutional Vitals: Vital Signs Temp Pulse Resp BP Pulse Ox 100.4 F H 90 24 185/77 96 07/20/18 12:00 07/20/18 18:00 07/20/18 12:31 07/20/18 18:00 07/20/18 14:13 Temperature -Last 24 Hours Temperature 100.4 F Temperature 99.3 F Temperature 100.4 F Temperature 100.4 F Temperature 102.1 F Temperature 102.1 F - Labs CBC & Chem 7: 07/20/18 06:47 07/20/18 06:47 Labs: Abnormal lab results 07/19/18 07/19/18 07/20/18 Range/Units 20:42 23:05 02:15 WBC (4.5-11.0) K/mm3 RBC (3.65-5.03) M/mm3 Hgb (10.1-14.3) gm/dl Hct (30.3-42.9) % MCH (28-32) pg RDW (13.2-15.2) % Lymph % (Auto) (13.4-35.0) % Seg Neutrophils % (40.0-70.0) % Seg Neutrophils # (1.8-7.7) K/mm3 Glucose (65-100) mg/dL POC Glucose 187 H 133 H 154 H (70-105) Calcium (8.4-10.2) mg/dL Albumin (3.9-5) g/dL 07/20/18 07/20/18 07/20/18 Range/Units 06:14 06:47 06:47 WBC 11.7 H (4.5-11.0) K/mm3 RBC 3.51 L (3.65-5.03) M/mm3 Hgb 9.2 L (10.1-14.3) gm/dl Hct 29.3 L (30.3-42.9) % MCH 26 L (28-32) pg RDW 15.9 H (13.2-15.2) % Lymph % (Auto) 12.0 L (13.4-35.0) % Seg Neutrophils % 80.8 H (40.0-70.0) % Seg Neutrophils # 9.4 H (1.8-7.7) K/mm3 Glucose 126 H (65-100) mg/dL POC Glucose 137 H (70-105) Calcium 8.3 L (8.4-10.2) mg/dL Albumin 2.8 L (3.9-5) g/dL 07/20/18 07/20/18 Range/Units 12:01 16:11 WBC (4.5-11.0) K/mm3 RBC (3.65-5.03) M/mm3 Hgb (10.1-14.3) gm/dl Hct (30.3-42.9) % MCH (28-32) pg RDW (13.2-15.2) % Lymph % (Auto) (13.4-35.0) % Seg Neutrophils % (40.0-70.0) % Seg Neutrophils # (1.8-7.7) K/mm3 Glucose (65-100) mg/dL POC Glucose 157 H 155 H (70-105) Calcium (8.4-10.2) mg/dL Albumin (3.9-5) g/dL
[2018-07-21] MEDS: APRESOLINE IV PRN ×2 (01:12→04:36)
[2018-07-21] MEDS: NORMODYNE IV PRN ×3 (02:36→21:05)
[2018-07-21] MEDS: NACL 0.9% 1000 ML 1,000 ML IV SCH ×2 (02:42→13:16)
[2018-07-21] MEDS: HumaLOG SUB-Q SCH ×5 (04:16→18:47)
[2018-07-21] MEDS: VASOTEC IV SCH ×3 (06:07→18:34)
[2018-07-21] MEDS: FLAGYL 500 MG/100 ML 500 MG/100 ML BAG IV SCH ×3 (06:09→18:42)
[2018-07-21] MEDS: TOPROL XL PO SCH (09:06)
[2018-07-21] MEDS: PROTONIX IV SCH (09:07)
[2018-07-21] MEDS: COZAAR PO SCH (09:07)
[2018-07-21] MEDS: HEPARIN SUB-Q SCH ×2 (09:07→21:06)
--- NOTE | 2018-07-21 10:14 | Progress Note ---
Assessment and Plan Cultures: 07/19/2018 blood culture: no growth A/P: 87-year-old female with diabetes mellitus, congestive heart failure, HTN admitted with: #1 sepsis, Continuing , present on admission likely from intra-abdominal source: Colitis versus diverticulitis versus intra-abdominal phlegmon/abscess with ?perforation: Gen. surgery following, Dr. Wooten, planning conservative management for now. Monitor fever and WBC. Continue empiric abx. #2 Acute encephalopathy: metabolic. 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 Recs: continue Cefepime and Flagyl Monitor fever and WBC [facility] M: [phone] O:[phone] Subjective Date of service: 07/21/18 Principal diagnosis: abd pain, abnormal CT Interval history: Patient seen and examined. Somnolent, not easily arousable. Nurses note, labs, imaging and reports reviewed. No family at bedside. Objective - Exam Narrative Exam: Constitutional: somnolent. No acute distress observed Head, Ears, Nose: Normocephalic, atraumatic. External ears, nose normal Eyes: Conjunctivae/corneas clear. No icterus. No ptosis. Neck: Supple, no meningeal signs Cardiovascular: S1, S2 normal. Respiratory: Good air entry, clear to auscultation bilaterally GI: Soft, non tender; hypoactive bowel sounds +. No rebound tenderness Musculoskeletal: No pedal edema, no cyanosis. Skin: No rash or abscess Hem/Lymphatic: No palpable cervical or supraclavicular nodes. No lymphangitis Psych: somnolent, not easily arousble , unable to assess Neurological: somnolent, unable to assess - Constitutional Vitals: Vital Signs Temp Pulse Resp BP Pulse Ox 100.1 F H 86 24 183/79 98 07/21/18 04:00 07/21/18 09:07 07/21/18 07:15 07/21/18 09:07 07/21/18 07:15 Temperature -Last 24 Hours Temperature 100.1 F Temperature 99.5 F Temperature 99.5 F Temperature 98.6 F Temperature 100.4 F - Labs CBC & Chem 7: 07/20/18 06:47 07/20/18 06:47 Labs: Abnormal lab results 07/20/18 07/20/18 07/20/18 Range/Units 12:01 16:11 19:56 POC Glucose 157 H 155 H 158 H (70-105) 07/20/18 07/21/18 07/21/18 Range/Units 23:34 04:16 08:11 POC Glucose 149 H 127 H 142 H (70-105)
--- NOTE | 2018-07-21 10:50 | Progress Note ---
Assessment and Plan Pt status quo. no specific compl Abd soft high BP rec BP control Begin TPN Selected Entries 07/21/18 07/21/18 04:00 09:07 Temperature 100.1 F H Pulse Rate 86 Blood Pressure 183/79 Objective Vital Signs - 12hr 07/20/18 07/20/18 07/21/18 23:01 23:34 00:00 Temperature 99.5 F Pulse Rate 76 79 88 Respiratory 24 26 H Rate Blood Pressure 141/64 155/69 165/142 O2 Sat by Pulse 95 94 Oximetry 07/21/18 07/21/18 07/21/18 01:00 01:12 02:01 Temperature Pulse Rate 75 80 91 H Respiratory 24 26 H Rate Blood Pressure 169/78 169/78 181/85 O2 Sat by Pulse 97 95 Oximetry 07/21/18 07/21/18 07/21/18 02:36 03:01 03:15 Temperature Pulse Rate 84 70 66 Respiratory 22 21 Rate Blood Pressure 198/84 154/58 O2 Sat by Pulse 95 99 Oximetry 07/21/18 07/21/18 07/21/18 03:31 03:45 04:00 Temperature 100.1 F H Pulse Rate 66 63 Respiratory 16 27 H Rate Blood Pressure 152/61 154/58 O2 Sat by Pulse 96 99 Oximetry 07/21/18 07/21/18 07/21/18 04:01 04:15 04:30 Temperature Pulse Rate 76 84 82 Respiratory 26 H 30 H 21 Rate Blood Pressure 180/86 195/90 O2 Sat by Pulse 96 98 98 Oximetry 07/21/18 07/21/18 07/21/18 04:36 04:45 05:01 Temperature Pulse Rate 85 82 85 Respiratory 17 23 Rate Blood Pressure 195/90 177/65 O2 Sat by Pulse 98 97 Oximetry 07/21/18 07/21/18 07/21/18 05:15 05:31 05:45 Temperature Pulse Rate 89 86 88 Respiratory 24 21 20 Rate Blood Pressure 167/68 177/72 184/73 O2 Sat by Pulse 98 97 98 Oximetry 07/21/18 07/21/18 07/21/18 06:01 06:07 06:15 Temperature Pulse Rate 95 H 98 H 94 H Respiratory 21 21 Rate Blood Pressure 196/79 196/79 O2 Sat by Pulse 98 99 Oximetry 07/21/18 07/21/18 07/21/18 06:31 06:41 06:45 Temperature Pulse Rate 95 H 95 H 86 Respiratory 25 H 22 Rate Blood Pressure 190/86 190/86 166/64 O2 Sat by Pulse 95 97 Oximetry 07/21/18 07/21/18 07/21/18 07:01 07:15 09:06 Temperature Pulse Rate 72 78 86 Respiratory 22 24 Rate Blood Pressure 174/66 153/66 183/79 O2 Sat by Pulse 95 98 Oximetry 07/21/18 09:07 Temperature Pulse Rate 86 Respiratory Rate Blood Pressure 183/79 O2 Sat by Pulse Oximetry - Labs 07/20/18 06:47 07/20/18 06:47
--- NOTE | 2018-07-21 10:51 | XRay Report ---
AP ABDOMEN: HISTORY: Bowel obstruction. Compared to the CT abdomen pelvis dated 07/19/18. The abdominal gas pattern is unremarkable. No masses or organomegaly is identified and there is no gross evidence of free air or fluid. No significant soft tissue calcifications are noted. IMPRESSION: Unremarkable abdomen. No evidence for bowel obstruction.
[2018-07-21] MEDS: MAXIPIME/NS 2 GM/100 ML 2 GM/100 ML BAG IV SCH ×2 (11:17→21:07)
--- NOTE | 2018-07-21 17:11 | Progress Note ---
Assessment and Plan Assessment and plan: Patient is 87 yo woman with a history of DM, CHF and hypertension who presents to [facility] ED via EMS with AMS, falling at home, feeling hot, blood glucose was in the 40s and she was given oral glucose by EMS prior to arrival. Associated with falling is diaphoresis, lose of appetite, n/v, sob x 1 day. This is patient 3rd fall at home. She did complain of right upper quadrant, sharp intermittent severe, aggravated by certain movement, relieved by different positions. * CTAP with IV contrast IMPRESSION: Extensive inflammatory changes involving the cecum and proximal ascending colon extending posteriorly with pericolonic stranding. Diagnostic consideration would include appendicitis with p erforation presuming the patient still has her appendix. The other possibility is severe diverticulitis with probable perforation. Extensive colonic diverticulosis. Uncomplicated cysts in both kidneys. Hysterectomy. Multilevel disc degeneration in the lumbar spine. Incidental note is made of a crescent- shaped area of mural thrombus at the thoracoabdominal junction involving the aorta. A remote dissection cannot entirely be excluded. * CTA chest pains IMPRESSION: 1. No evidence of pulmonary embolism. 2. Mild cardiomegaly 3. Lingular subsegmental atelectasis versus parenchymal scar 4. 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 No evidence of acute infarct or intracra nial hemorrhage. 2. White matter lucency consistent with chronic microvascular ischemic disease. * pCXR IMPRESSION: Subpleural effusion and cardiomegaly Hypertensive urgency: Started on PO meds, increase Losartan. Recurrent falls with episodes of hypoglycemia: hold DM medication(s), treat with dextrose, accuchecks Sepsis (late find in ED,so I ordered lactic acid x 2, and IVF) with suspected perforated bowel from appendix vs diverticuli: lactic acid, treat with iv abx, ivf, Dr. Wooten notified and wants a CT with oral contrast prior to leaving ED. ID input noted. 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 Patient seen and examined this am, remains with some abdominal pain but improving. family (Nephew Present) states patient has experienced multiple falls in the past Hospitalist Physical - Physical exam Narrative exam: Gen: WDWN, NAD, Awake, Alert, Orientated HEENT: NCAT, EOMI, PERRL, OP Clear Neck: supple, no adenopathy, no thyromegaly, no JVD CVS/Heart: RRR, normal S1S2, pulses present bilaterally Chest/Lungs: diminished bs bilateral, Symmetrical chest expansion, good air entry bilaterally GI/Abdomen: soft, non tender, good bowel sounds, no guarding or rebound /Bladder: no suprapubic tenderness, no CVA or paraspinal tenderness Extermity/Skin: no c/c/e, no obvious rash MSK: FROM x 4 Neuro: CN 2-12 grossly intact, no new focal deficits Psych: calm - Constitutional Vitals: Temp Pulse Resp BP Pulse Ox 100.1 F H 81 19 135/66 100 07/21/18 04:00 07/21/18 16:31 07/21/18 16:31 07/21/18 16:31 07/21/18 16:31 Results - Labs CBC & Chem 7: 07/20/18 06:47 07/20/18 06:47 Labs: Laboratory Last Values WBC 11.7 K/mm3 (4.5-11.0) H 07/20/18 06:47 RBC 3.51 M/mm3 (3.65-5.03) L 07/20/18 06:47 Hgb 9.2 gm/dl (10.1-14.3) L 07/20/18 06:47 Hct 29.3 % (30.3-42.9) L 07/20/18 06:47 MCV 84 fl (79-97) 07/20/18 06:47 MCH 26 pg (28-32) L 07/20/18 06:47 MCHC 32 % (30-34) 07/20/18 06:47 RDW 15.9 % (13.2-15.2) H 07/20/18 06:47 Plt Count 414 K/mm3 (140-440) 07/20/18 06:47 Lymph % (Auto) 12.0 % (13.4-35.0) L 07/20/18 06:47 [place]age % (Auto) 6.4 % (0.0-7.3) 07/20/18 06:47 Eos % (Auto) 0.0 % (0.0-4.3) 07/20/18 06:47 Baso % (Auto) 0.8 % (0.0-1.8) 07/20/18 06:47 Lymph # 1.4 K/mm3 (1.2-5.4) 07/20/18 06:47 Gage # 0.8 K/mm3 (0.0-0.8) 07/20/18 06:47 Eos # 0.0 K/mm3 (0.0-0.4) 07/20/18 06:47 Baso # 0.1 K/mm3 (0.0-0.1) 07/20/18 06:47 Seg Neutrophils % 80.8 % (40.0-70.0) H 07/20/18 06:47 Seg Neutrophils # 9.4 K/mm3 (1.8-7.7) H 07/20/18 06:47 PT 14.4 Sec. (12.2-14.9) 07/18/18 20:48 INR 1.08 (0.87-1.13) 07/18/18 20:48 APTT 23.2 Sec. (24.2-36.6) L 07/18/18 20:48 Sodium 141 mmol/L (137-145) 07/20/18 06:47 Potassium 4.2 mmol/L (3.6-5.0) 07/20/18 06:47 Chloride 105.7 mmol/L (98-107) 07/20/18 06:47 Carbon Dioxide 22 mmol/L (22-30) 07/20/18 06:47 Anion Gap 18 mmol/L 07/20/18 06:47 BUN 8 mg/dL (7-17) 07/20/18 06:47 Creatinine 0.9 mg/dL (0.7-1.2) 07/20/18 06:47 Estimated GFR > 60 ml/min 07/20/18 06:47 BUN/Creatinine Ratio 9 % 07/20/18 06:47 Glucose 126 mg/dL (65-100) H 07/20/18 06:47 POC Glucose 134 (70-105) H 07/21/18 16:12 Lactic Acid 1.10 mmol/L (0.7-2.0) 07/19/18 17:04 Calcium 8.3 mg/dL (8.4-10.2) L 07/20/18 06:47 Total Bilirubin 0.20 mg/dL (0.1-1.2) 07/20/18 06:47 AST 17 units/L (5-40) 07/20/18 06:47 ALT 8 units/L (7-56) 07/20/18 06:47 Alkaline Phosphatase 73 units/L (35-129) 07/20/18 06:47 Total Creatine Kinase 48 units/L (30-135) 07/18/18 20:48 CK-MB (CK-2) < 1.0 ng/mL (0.0-4.0) 07/18/18 20:48 CK-MB (CK-2) Rel Index 2.0 (0-4) 07/18/18 20:48 Troponin T 0.025 ng/mL (0.00-0.029) 07/18/18 20:48 NT-Pro-B Natriuret Pep 462.4 pg/mL (0-900) 07/18/18 20:48 Total Protein 7.2 g/dL (6.3-8.2) 07/20/18 06:47 Albumin 2.8 g/dL (3.9-5) L 07/20/18 06:47 Albumin/Globulin Ratio 0.6 % 07/20/18 06:47 Urine Color Yellow (Yellow) 07/18/18 21:49 Urine Turbidity Clear (Clear) 07/18/18 21:49 Urine pH 5.0 (5.0-7.0) 07/18/18 21:49 Ur Specific [place] 1.019 (1.003-1.030) 07/18/18 21:49 Urine Protein <15 mg/dl mg/dL (Negative) 07/18/18 21:49 Urine Glucose (UA) Neg mg/dL (Negative) 07/18/18 21:49 Urine Ketones Neg mg/dL (Negative) 07/18/18 21:49 Urine Blood Neg (Negative) 07/18/18 21:49 Urine Nitrite Neg (Negative) 07/18/18 21:49 Urine Bilirubin Neg (Negative) 07/18/18 21:49 Urine Urobilinogen 4.0 mg/dL (<2.0) 07/18/18 21:49 Ur Leukocyte Esterase Neg (Negative) 07/18/18 21:49 Urine WBC (Auto) 2.0 /HPF (0.0-6.0) 07/18/18 21:49 Urine RBC (Auto) < 1.0 /HPF (0.0-6.0) 07/18/18 21:49 U Epithel Cells (Auto) 3.0 /HPF (0-13.0) 07/18/18 21:49 Urine Mucus Few /HPF 07/18/18 21:49
[2018-07-21] MEDS ORDERED: COZAAR PO ONE (21:52)
[2018-07-22] MEDS: HumaLOG SUB-Q SCH ×7 (00:19→23:40)
[2018-07-22] MEDS: VASOTEC IV SCH ×5 (00:30→23:00)
[2018-07-22] MEDS: NACL 0.9% 1000 ML 1,000 ML IV SCH ×2 (00:33→12:40)
[2018-07-22] MEDS: TYLENOL PO PRN ×2 (01:01→17:48)
[2018-07-22] MEDS: APRESOLINE IV PRN ×3 (01:01→15:51)
[2018-07-22] MEDS: FLAGYL 500 MG/100 ML 500 MG/100 ML BAG IV SCH ×3 (01:10→17:48)
[2018-07-22] MEDS ORDERED: COZAAR PO NR (02:30)
[2018-07-22] MEDS ORDERED: VASOTEC IV ONE (05:18)
[2018-07-22] MEDS: NORMODYNE IV PRN ×2 (07:35→12:36)
[2018-07-22] MEDS: COZAAR PO SCH (09:13)
[2018-07-22] MEDS: HEPARIN SUB-Q SCH ×2 (09:14→23:01)
[2018-07-22] MEDS: TOPROL XL PO SCH ×2 (09:14→13:43)
[2018-07-22] MEDS: PROTONIX PO SCH (09:14)
--- NOTE | 2018-07-22 10:54 | XRay Report ---
AP CHEST: HISTORY: Shortness of breath Compared to 07/18/18. Mild to moderate cardiomegaly is stable. Mild improvement in pulmonary venous congestion is suspected. The lungs are clear. No infiltrate, large pleural effusion or pneumothorax is identified. IMPRESSION: Cardiomegaly. Lungs clear.
--- NOTE | 2018-07-22 11:33 | Progress Note ---
Assessment and Plan Cultures: 07/19/2018 blood culture: no growth 07/22/2018 blood: in progress A/P: 87-year-old female with diabetes mellitus, congestive heart failure, HTN admitted with: #1 sepsis, Continuing , present on admission likely from intra-abdominal source: Colitis versus diverticulitis versus intra-abdominal phlegmon/abscess with ?perforation: Gen. surgery following, Dr. Wooten, planning conservative management for now. Monitor fever and WBC. Continue empiric abx. #2 Acute encephalopathy: metabolic. 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 Recs: continue Cefepime and Flagyl Monitor fever and WBC f/u CT of abdomen on Wednesday Dr. Lopez will be taking call from home on Wednesday, , and making rounds in the hospital on Wednesday. [facility] M: [phone] O:[phone] Subjective Date of service: 07/22/18 Principal diagnosis: abd pain, abnormal CT Interval history: Patient seen and examined. Awake, able to answer simple questions. Nurses note, labs, imaging and reports reviewed. No family at bedside. Objective - Exam Narrative Exam: Constitutional: Awake, alert No acute distress observed Head, Ears, Nose: Normocephalic, atraumatic. External ears, nose normal Eyes: Conjunctivae/corneas clear. No icterus. No ptosis. Neck: Supple, no meningeal signs Cardiovascular: S1, S2 normal. Respiratory: Good air entry, clear to auscultation bilaterally GI: Soft, non tender; hypoactive bowel sounds +. No rebound tenderness Musculoskeletal: No pedal edema, no cyanosis. Skin: No rash or abscess Hem/Lymphatic: No palpable cervical or supraclavicular nodes. No lymphangitis Psych: Mood: ok Neurological: Awake, oriented to self and place - Constitutional Vitals: Vital Signs Temp Pulse Resp BP Pulse Ox 98.9 F 86 18 188/86 100 07/22/18 04:00 07/22/18 09:14 07/22/18 06:00 07/22/18 09:14 07/22/18 08:09 Temperature -Last 24 Hours Temperature 98.9 F Temperature 99.4 F Temperature 101.4 F Temperature 98.1 F Temperature 98.4 F Temperature 98.1 F - Labs CBC & Chem 7: 07/22/18 13:47 07/20/18 06:47 Labs: Abnormal lab results 07/21/18 07/21/18 07/21/18 Range/Units 16:12 18:49 23:03 POC Glucose 134 H 113 H 120 H (70-105) 07/22/18 07/22/18 Range/Units 05:24 08:09 POC Glucose 126 H 112 H (70-105)
[2018-07-22] MEDS ORDERED: LASIX IV ONE (11:35)
[2018-07-22] MEDS: MAXIPIME/NS 2 GM/100 ML 2 GM/100 ML BAG IV SCH ×2 (11:36→23:20)
--- NOTE | 2018-07-22 12:18 | Progress Note ---
Assessment and Plan Pt status quo Abd soft cecal diverticulitis with phlegmon vs cecal tumor necrosis continue NPO rec TPN CEA ordered f/u CT ordered for Wednesday Selected Entries 07/22/18 07/22/18 04:00 11:38 Temperature 98.9 F Pulse Rate 85 Blood Pressure 211/76 Objective Vital Signs - 12hr 07/22/18 07/22/18 07/22/18 00:30 00:46 01:00 Temperature Pulse Rate 77 68 68 Pulse Rate [ From Monitor] Respiratory 25 H 26 H 29 H Rate Blood Pressure 195/78 195/78 194/69 O2 Sat by Pulse 99 99 97 Oximetry 07/22/18 07/22/18 07/22/18 01:01 01:16 01:30 Temperature Pulse Rate 68 73 80 Pulse Rate [ From Monitor] Respiratory 26 H 26 H Rate Blood Pressure 194/79 194/69 194/69 O2 Sat by Pulse 99 100 Oximetry 07/22/18 07/22/18 07/22/18 01:46 02:00 02:16 Temperature 99.4 F Pulse Rate 78 84 71 Pulse Rate [ From Monitor] Respiratory 25 H 17 27 H Rate Blood Pressure 194/69 194/69 137/54 O2 Sat by Pulse 100 100 100 Oximetry 07/22/18 07/22/18 07/22/18 02:30 02:46 03:00 Temperature Pulse Rate 64 65 72 Pulse Rate [ From Monitor] Respiratory 22 22 22 Rate Blood Pressure 137/54 137/54 129/94 O2 Sat by Pulse 100 100 99 Oximetry 07/22/18 07/22/18 07/22/18 03:16 03:30 03:46 Temperature Pulse Rate 60 59 L 59 L Pulse Rate [ From Monitor] Respiratory 21 21 20 Rate Blood Pressure 129/94 129/94 129/94 O2 Sat by Pulse 100 100 100 Oximetry 07/22/18 07/22/18 07/22/18 04:00 04:16 04:30 Temperature 98.9 F Pulse Rate 69 75 77 Pulse Rate [ 57 L From Monitor] Respiratory 19 26 H 23 Rate Blood Pressure 159/50 159/50 159/50 O2 Sat by Pulse 100 100 100 Oximetry 07/22/18 07/22/18 07/22/18 04:46 05:00 05:16 Temperature Pulse Rate 95 H 71 58 L Pulse Rate [ From Monitor] Respiratory 24 19 20 Rate Blood Pressure 159/50 172/66 172/66 O2 Sat by Pulse 100 98 100 Oximetry 07/22/18 07/22/18 07/22/18 05:24 05:29 05:30 Temperature Pulse Rate 72 75 59 L Pulse Rate [ From Monitor] Respiratory 19 Rate Blood Pressure 172/66 172/66 172/66 O2 Sat by Pulse 100 Oximetry 07/22/18 07/22/18 07/22/18 05:46 06:00 07:35 Temperature Pulse Rate 57 L 56 L 80 Pulse Rate [ From Monitor] Respiratory 20 18 Rate Blood Pressure 172/66 135/40 215/87 O2 Sat by Pulse 100 100 Oximetry 07/22/18 07/22/18 07/22/18 08:09 08:52 09:13 Temperature Pulse Rate 75 88 Pulse Rate [ From Monitor] Respiratory Rate Blood Pressure 172/71 188/86 O2 Sat by Pulse 100 Oximetry 07/22/18 07/22/18 09:14 11:38 Temperature Pulse Rate 86 85 Pulse Rate [ From Monitor] Respiratory Rate Blood Pressure 188/86 211/76 O2 Sat by Pulse Oximetry - Labs 07/20/18 06:47 07/20/18 06:47
[2018-07-22] MEDS ORDERED: TOPROL XL PO SCH (13:00)
[2018-07-22 14:24] LABS: Basophils # (Auto) 0.1 K/mm3 (0.0-0.1); Basophils % (Auto) 0.8 % (0.0-1.8); Eosinophils % (Auto) 0.4 % (0.0-4.3); Hematocrit 26.5 % (30.3-42.9); Hemoglobin 8.3 gm/dl (10.1-14.3); Lymphocytes # (Auto) 1.1 K/mm3 (1.2-5.4); Mean Corpuscular HGB Conc 31 % (30-34); Mean Corpuscular Volume 84 fl (79-97); Monocytes # (Auto) 0.6 K/mm3 (0.0-0.8); Monocytes % (Auto) 6.9 % (0.0-7.3); Platelet Count 371 K/mm3 (140-440); Red Blood Count 3.16 M/mm3 (3.65-5.03); Red Cell Distribution Width 16.6 % (13.2-15.2)
[2018-07-22] MEDS: MORPHINE IV PRN (16:32)
[2018-07-22] MEDS ORDERED: CLINIMIX 4.25%-5% SOLUTION 2,000 ML IV SCH (20:00)
--- NOTE | 2018-07-22 20:52 | Progress Note ---
Assessment and Plan Assessment and plan: Patient is 87 yo woman with a history of DM, CHF and hypertension who [facility] with AMS, falling at home, feeling hot, blood glucose was in the 40s and she was given oral glucose by EMS prior to arrival. Associated with falling is diaphoresis, lose of appetite, n/v, sob x 1 day. This is patient 3rd fall at home. She did complain of right upper quadrant, sharp intermittent severe, aggravated by certain movement, relieved by different positions. * CTAP with IV contrast IMPRESSION: Extensive inflammatory changes involving the cecum and proximal ascending colon extending posteriorly with pericolonic stranding. Diagnostic consideration would include appendicitis with p erforation presuming the patient still has her appendix. The other possibility is severe diverticulitis with probable perforation. Extensive colonic diverticulosis. Uncomplicated cysts in both kidneys. Hysterectomy. Multilevel disc degeneration in the lumbar spine. Incidental note is made of a crescent- shaped area of mural thrombus at the thoracoabdominal junction involving the aorta. A remote dissection cannot entirely be excluded. * CTA chest pains IMPRESSION: 1. No evidence of pulmonary embolism. 2. Mild cardiomegaly 3. Lingular subsegmental atelectasis versus parenchymal scar 4. 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 No evidence of acute infarct or intracra nial hemorrhage. 2. White matter lucency consistent with chronic microvascular ischemic disease. * pCXR IMPRESSION: Subpleural effusion and cardiomegaly Hypertensive urgency: Started on PO meds, increase Losartan. 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 Patient seen and examined this am, remains with some abdominal pain but improving. still with uncontrolled BP Hospitalist Physical - Physical exam Narrative exam: Gen: WDWN, NAD, Awake, Alert, Orientated HEENT: NCAT, EOMI, PERRL, OP Clear Neck: supple, no adenopathy, no thyromegaly, no JVD CVS/Heart: RRR, normal S1S2, pulses present bilaterally Chest/Lungs: diminished bs bilateral, Symmetrical chest expansion, good air entry bilaterally GI/Abdomen: soft, non tender, distendedf, good bowel sounds, no guarding or rebound /Bladder: no suprapubic tenderness, no CVA or paraspinal tenderness Extermity/Skin: no c/c/e, no obvious rash MSK: FROM x 4 Neuro: CN 2-12 grossly intact, no new focal deficits Psych: calm - Constitutional Vitals: Temp Pulse Resp BP Pulse Ox 100.4 F H 58 L 17 138/55 100 07/22/18 16:00 07/22/18 19:46 07/22/18 19:46 07/22/18 19:46 07/22/18 20:24 Results - Labs CBC & Chem 7: 07/23/18 05:39 07/20/18 06:47 Labs: Laboratory Last Values WBC 8.7 K/mm3 (4.5-11.0) 07/22/18 13:47 RBC 3.16 M/mm3 (3.65-5.03) L 07/22/18 13:47 Hgb 8.3 gm/dl (10.1-14.3) L 07/22/18 13:47 Hct 26.5 % (30.3-42.9) L 07/22/18 13:47 MCV 84 fl (79-97) 07/22/18 13:47 MCH 26 pg (28-32) L 07/22/18 13:47 MCHC 31 % (30-34) 07/22/18 13:47 RDW 16.6 % (13.2-15.2) H 07/22/18 13:47 Plt Count 371 K/mm3 (140-440) 07/22/18 13:47 Lymph % (Auto) 12.0 % (13.4-35.0) L 07/22/18 13:47 [place] % (Auto) 6.9 % (0.0-7.3) 07/22/18 13:47 Eos % (Auto) 0.4 % (0.0-4.3) 07/22/18 13:47 Baso % (Auto) 0.8 % (0.0-1.8) 07/22/18 13:47 Lymph # 1.1 K/mm3 (1.2-5.4) L 07/22/18 13:47 [place] # 0.6 K/mm3 (0.0-0.8) 07/22/18 13:47 Eos # 0.0 K/mm3 (0.0-0.4) 07/22/18 13:47 Baso # 0.1 K/mm3 (0.0-0.1) 07/22/18 13:47 Seg Neutrophils % 79.9 % (40.0-70.0) H 07/22/18 13:47 Seg Neutrophils # 7.0 K/mm3 (1.8-7.7) 07/22/18 13:47 PT 14.4 Sec. (12.2-14.9) 07/18/18 20:48 INR 1.08 (0.87-1.13) 07/18/18 20:48 APTT 23.2 Sec. (24.2-36.6) L 07/18/18 20:48 Sodium 141 mmol/L (137-145) 07/20/18 06:47 Potassium 4.2 mmol/L (3.6-5.0) 07/20/18 06:47 Chloride 105.7 mmol/L (98-107) 07/20/18 06:47 Carbon Dioxide 22 mmol/L (22-30) 07/20/18 06:47 Anion Gap 18 mmol/L 07/20/18 06:47 BUN 8 mg/dL (7-17) 07/20/18 06:47 Creatinine 0.9 mg/dL (0.7-1.2) 07/20/18 06:47 Estimated GFR > 60 ml/min 07/20/18 06:47 BUN/Creatinine Ratio 9 % 07/20/18 06:47 Glucose 126 mg/dL (65-100) H 07/20/18 06:47 POC Glucose 132 (70-105) H 07/22/18 16:26 Lactic Acid 1.10 mmol/L (0.7-2.0) 07/19/18 17:04 Calcium 8.3 mg/dL (8.4-10.2) L 07/20/18 06:47 Total Bilirubin 0.20 mg/dL (0.1-1.2) 07/20/18 06:47 AST 17 units/L (5-40) 07/20/18 06:47 ALT 8 units/L (7-56) 07/20/18 06:47 Alkaline Phosphatase 73 units/L (35-129) 07/20/18 06:47 Total Creatine Kinase 48 units/L (30-135) 07/18/18 20:48 CK-MB (CK-2) < 1.0 ng/mL (0.0-4.0) 07/18/18 20:48 CK-MB (CK-2) Rel Index 2.0 (0-4) 07/18/18 20:48 Troponin T 0.025 ng/mL (0.00-0.029) 07/18/18 20:48 NT-Pro-B Natriuret Pep 462.4 pg/mL (0-900) 07/18/18 20:48 Total Protein 7.2 g/dL (6.3-8.2) 07/20/18 06:47 Albumin 2.8 g/dL (3.9-5) L 07/20/18 06:47 Albumin/Globulin Ratio 0.6 % 07/20/18 06:47 Urine Color Yellow (Yellow) 07/18/18 21:49 Urine Turbidity Clear (Clear) 07/18/18 21:49 Urine pH 5.0 (5.0-7.0) 07/18/18 21:49 Ur Specific [place] 1.019 (1.003-1.030) 07/18/18 21:49 Urine Protein <15 mg/dl mg/dL (Negative) 07/18/18 21:49 Urine Glucose (UA) Neg mg/dL (Negative) 07/18/18 21:49 Urine Ketones Neg mg/dL (Negative) 07/18/18 21:49 Urine Blood Neg (Negative) 07/18/18 21:49 Urine Nitrite Neg (Negative) 07/18/18 21:49 Urine Bilirubin Neg (Negative) 07/18/18 21:49 Urine Urobilinogen 4.0 mg/dL (<2.0) 07/18/18 21:49 Ur Leukocyte Esterase Neg (Negative) 07/18/18 21:49 Urine WBC (Auto) 2.0 /HPF (0.0-6.0) 07/18/18 21:49 Urine RBC (Auto) < 1.0 /HPF (0.0-6.0) 07/18/18 21:49 U Epithel Cells (Auto) 3.0 /HPF (0-13.0) 07/18/18 21:49 Urine Mucus Few /HPF 07/18/18 21:49 Nutrition/Malnutrition Assess - Dietary Evaluation Nutrition/Malnutrition Findings: Nutrition Notes Start: 07/22/18 14:00 Freq: Status: Active Protocol: Document 07/22/18 14:00 [facility] (Rec: 07/22/18 14:16 [facility] [id number]) Nutrition Notes Need for Assessment generated from: MD Order Initial or Follow up Assessment Current Diagnoses Diabetes Sepsis Hypertension Heart Failure Other Pertinent Diagnosis 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 Pt has peripheral iv access. Percent of energy/protein needs met: 53% energy 100% pro Burn Absent Trauma Absent #1 Nutrition Diagnoses Altered GI function Etiology cecal diverticulitis As Evidenced by Signs and Symptoms pt NPO Is patient on ventilator? No Is Patient Ambulatory and/or Out of Bed No REE-([facility]-confined to bed) 1728.156 Kcal/Kg value to use for calculation 13 Approximate Energy Requirements Using 1291 kcal/Kg Calculation Used for Recommendations Kcal/kg Additional Notes Pro needs 1-1.2g/kg adjBW: 78- 94g/day Fluid needs 1ml/kcal Nutrition Intervention Nutrition Support: Start Clinimix 4.25%/5% at 83. 33ml/hr. Osmolality: 675. Kcal 680 Protein (gm) 85 Carbohydrates (gm) 100 Fat (gm) 0 Fluid (mL) 2,000 Fiber (gm) 0 Goal #1 PN to meet nutrient needs as best possible Anticipated Discharge Needs: Unable to identify at this time Follow-Up By: 07/23/18 Additional Comments Labs in am: CMP, Mg, Phos - Attestation Statement I have reviewed and agreed w/ Malnutrition eval & tx plan: Yes
[2018-07-23] MEDS: APRESOLINE IV PRN ×3 (00:56→20:40)
[2018-07-23] MEDS: FLAGYL 500 MG/100 ML 500 MG/100 ML BAG IV SCH ×3 (01:08→17:50)
[2018-07-23] MEDS ORDERED: VASOTEC IV ONE (05:04)
[2018-07-23] MEDS: VASOTEC IV SCH ×3 (05:09→17:51)
[2018-07-23] MEDS: HumaLOG SUB-Q SCH ×6 (05:16→23:32)
[2018-07-23 06:08] LABS: Basophils # (Auto) 0.1 K/mm3 (0.0-0.1); Basophils % (Auto) 0.7 % (0.0-1.8); Eosinophils # (Auto) 0.1 K/mm3 (0.0-0.4); Eosinophils % (Auto) 1.1 % (0.0-4.3); Hematocrit 25.6 % (30.3-42.9); Hemoglobin 8.3 gm/dl (10.1-14.3); Lymphocytes % (Auto) 13.1 % (13.4-35.0); Mean Corpuscular HGB Conc 32 % (30-34); Mean Corpuscular Volume 84 fl (79-97); Monocytes # (Auto) 0.6 K/mm3 (0.0-0.8); Monocytes % (Auto) 8.1 % (0.0-7.3); Platelet Count 340 K/mm3 (140-440); Red Blood Count 3.04 M/mm3 (3.65-5.03); Red Cell Distribution Width 16.7 % (13.2-15.2)
[2018-07-23 06:43] LABS: Alanine Aminotransferase 7 units/L (7-56); Albumin 2.8 g/dL (3.9-5); BUN/Creatinine Ratio 24; Blood Urea Nitrogen 22 mg/dL (7-17); Calcium 8.3 mg/dL (8.4-10.2); Hemolysis Index 10
[2018-07-23] MEDS: HEPARIN SUB-Q SCH ×2 (09:39→21:57)
[2018-07-23] MEDS: TOPROL XL PO SCH (09:40)
[2018-07-23] MEDS: COZAAR PO SCH (09:40)
[2018-07-23] MEDS: PROTONIX PO SCH (09:41)
[2018-07-23] MEDS: MAXIPIME/NS 2 GM/100 ML 2 GM/100 ML BAG IV SCH ×2 (09:42→21:57)
[2018-07-23] MEDS ORDERED: LASIX PO SCH (10:00)
--- NOTE | 2018-07-23 15:02 | Progress Note ---
Assessment and Plan Assessment and plan: Patient is 87 yo woman with a history of DM, CHF and hypertension who presents to [facility] ED via EMS with AMS, falling at home, feeling hot, blood glucose was in the 40s and she was given oral glucose by EMS prior to arrival. Associated with falling is diaphoresis, lose of appetite, n/v, sob x 1 day. This is patient 3rd fall at home. She did complain of right upper quadrant, sharp intermittent severe, aggravated by certain movement, relieved by different positions. * CTAP with IV contrast IMPRESSION: Extensive inflammatory changes involving the cecum and proximal ascending colon extending posteriorly with pericolonic stranding. Diagnostic consideration would include appendicitis with p erforation presuming the patient still has her appendix. The other possibility is severe diverticulitis with probable perforation. Extensive colonic diverticulosis. Uncomplicated cysts in both kidneys. Hysterectomy. Multilevel disc degeneration in the lumbar spine. Incidental note is made of a crescent- shaped area of mural thrombus at the thoracoabdominal junction involving the aorta. A remote dissection cannot entirely be excluded. * CTA chest pains IMPRESSION: 1. No evidence of pulmonary embolism. 2. Mild cardiomegaly 3. Lingular subsegmental atelectasis versus parenchymal scar 4. 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 No evidence of acute infarct or intracra nial hemorrhage. 2. White matter lucency consistent with chronic microvascular ischemic disease. 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 Follow-up on current diagnosis. Overnight uneventful. Patient denies any chest pain, shortness breath, nausea/vomiting or severe headaches. Imaging, nursing note, chart, labs and old chart reviewed. Discussed with patient. Hospitalist Physical - Physical exam Narrative exam: Gen: WDWN, NAD, Awake, Alert, Orientated x 2 HEENT: NCAT, EOMI, PERRL, OP Clear Neck: supple, no adenopathy, no thyromegaly, no JVD CVS/Heart: RRR, normal S1S2, pulses present bilaterally Chest/Lungs: diminished bs bilateral, Symmetrical chest expansion, good air entry bilaterally GI/Abdomen: soft diffusely tender, good bowel sounds, no guarding or rebound /Bladder: no suprapubic tenderness, no CVA or paraspinal tenderness Extermity/Skin: no c/c/e, no obvious rash MSK: FROM x 4 Neuro: CN 2-12 grossly intact, no new focal deficits Psych: calm - Constitutional Vitals: Temp Pulse Resp BP Pulse Ox 98.6 F 51 L 18 195/71 100 07/23/18 12:00 07/23/18 14:39 07/23/18 13:00 07/23/18 14:39 07/23/18 12:46 Results - Labs CBC & Chem 7: 07/23/18 05:39 07/23/18 05:39 Labs: Laboratory Last Values WBC 7.8 K/mm3 (4.5-11.0) 07/23/18 05:39 RBC 3.04 M/mm3 (3.65-5.03) L 07/23/18 05:39 Hgb 8.3 gm/dl (10.1-14.3) L 07/23/18 05:39 Hct 25.6 % (30.3-42.9) L 07/23/18 05:39 MCV 84 fl (79-97) 07/23/18 05:39 MCH 27 pg (28-32) L 07/23/18 05:39 MCHC 32 % (30-34) 07/23/18 05:39 RDW 16.7 % (13.2-15.2) H 07/23/18 05:39 Plt Count 340 K/mm3 (140-440) 07/23/18 05:39 Lymph % (Auto) 13.1 % (13.4-35.0) L 07/23/18 05:39 [place] % (Auto) 8.1 % (0.0-7.3) H 07/23/18 05:39 Eos % (Auto) 1.1 % (0.0-4.3) 07/23/18 05:39 Baso % (Auto) 0.7 % (0.0-1.8) 07/23/18 05:39 Lymph # 1.0 K/mm3 (1.2-5.4) L 07/23/18 05:39 [place] # 0.6 K/mm3 (0.0-0.8) 07/23/18 05:39 Eos # 0.1 K/mm3 (0.0-0.4) 07/23/18 05:39 Baso # 0.1 K/mm3 (0.0-0.1) 07/23/18 05:39 Seg Neutrophils % 77.0 % (40.0-70.0) H 07/23/18 05:39 Seg Neutrophils # 6.0 K/mm3 (1.8-7.7) 07/23/18 05:39 PT 14.4 Sec. (12.2-14.9) 07/18/18 20:48 INR 1.08 (0.87-1.13) 07/18/18 20:48 APTT 23.2 Sec. (24.2-36.6) L 07/18/18 20:48 Sodium 138 mmol/L (137-145) 07/23/18 05:39 Potassium 4.2 mmol/L (3.6-5.0) 07/23/18 05:39 Chloride 105.1 mmol/L (98-107) 07/23/18 05:39 Carbon Dioxide 22 mmol/L (22-30) 07/23/18 05:39 Anion Gap 15 mmol/L 07/23/18 05:39 BUN 22 mg/dL (7-17) H 07/23/18 05:39 Creatinine 0.9 mg/dL (0.7-1.2) 07/23/18 05:39 Estimated GFR > 60 ml/min 07/23/18 05:39 BUN/Creatinine Ratio 24 % 07/23/18 05:39 Glucose 224 mg/dL (65-100) H 07/23/18 05:39 POC Glucose 191 (70-105) H 07/23/18 12:10 Lactic Acid 1.10 mmol/L (0.7-2.0) 07/19/18 17:04 Calcium 8.3 mg/dL (8.4-10.2) L 07/23/18 05:39 Phosphorus 1.90 mg/dL (2.5-4.5) L 07/23/18 05:39 Magnesium 1.60 mg/dL (1.7-2.3) L 07/23/18 05:39 Total Bilirubin 0.20 mg/dL (0.1-1.2) 07/23/18 05:39 AST 20 units/L (5-40) 07/23/18 05:39 ALT 7 units/L (7-56) 07/23/18 05:39 Alkaline Phosphatase 56 units/L (35-129) 07/23/18 05:39 Total Creatine Kinase 48 units/L (30-135) 07/18/18 20:48 CK-MB (CK-2) < 1.0 ng/mL (0.0-4.0) 07/18/18 20:48 CK-MB (CK-2) Rel Index 2.0 (0-4) 07/18/18 20:48 Troponin T 0.025 ng/mL (0.00-0.029) 07/18/18 20:48 NT-Pro-B Natriuret Pep 462.4 pg/mL (0-900) 07/18/18 20:48 Total Protein 6.4 g/dL (6.3-8.2) 07/23/18 05:39 Albumin 2.8 g/dL (3.9-5) L 07/23/18 05:39 Albumin/Globulin Ratio 0.8 % 07/23/18 05:39 Urine Color Yellow (Yellow) 07/18/18 21:49 Urine Turbidity Clear (Clear) 07/18/18 21:49 Urine pH 5.0 (5.0-7.0) 07/18/18 21:49 Ur Specific [place] 1.019 (1.003-1.030) 07/18/18 21:49 Urine Protein <15 mg/dl mg/dL (Negative) 07/18/18 21:49 Urine Glucose (UA) Neg mg/dL (Negative) 07/18/18 21:49 Urine Ketones Neg mg/dL (Negative) 07/18/18 21:49 Urine Blood Neg (Negative) 07/18/18 21:49 Urine Nitrite Neg (Negative) 07/18/18 21:49 Urine Bilirubin Neg (Negative) 07/18/18 21:49 Urine Urobilinogen 4.0 mg/dL (<2.0) 07/18/18 21:49 Ur Leukocyte Esterase Neg (Negative) 07/18/18 21:49 Urine WBC (Auto) 2.0 /HPF (0.0-6.0) 07/18/18 21:49 Urine RBC (Auto) < 1.0 /HPF (0.0-6.0) 07/18/18 21:49 U Epithel Cells (Auto) 3.0 /HPF (0-13.0) 07/18/18 21:49 Urine Mucus Few /HPF 07/18/18 21:49 Nutrition/Malnutrition Assess - Dietary Evaluation Nutrition/Malnutrition Findings: Nutrition Notes Start: 07/22/18 14:00 Freq: Status: Active Protocol: Document 07/23/18 13:10 LP (Rec: 07/23/18 13:14 LP [id number]) Nutrition Notes Initial or Follow up Reassessment Current Diagnoses Diabetes Sepsis Hypertension Heart Failure Other Pertinent Diagnosis 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 Percent of energy/protein needs met: 53% energy 100% pro Burn Absent Trauma Absent #1 Nutrition Diagnoses Altered GI function Diagnosis Progress(for reassessment Continues documentation) Is patient on ventilator? No Is Patient Ambulatory and/or Out of Bed No REE-([facility]-confined to bed) 1728.156 Kcal/Kg value to use for calculation 13 Approximate Energy Requirements Using 1291 kcal/Kg Calculation Used for Recommendations Kcal/kg Additional Notes Pro needs 1-1.2g/kg adjBW: 78- 94g/day Fluid needs 1ml/kcal Nutrition Intervention Change Diet Order: PPN Nutrition Support: PPN at 83.33ml/hr: 4.5% amino acid, 5% dextrose, 140mEq Na, 40mEq K, 20mEq Mg, 10mEq Ca, 24mmol phos, Chloride:Acetate 50:50, MVI, Thiamine. Kcal 700 Protein (gm) 90 Carbohydrates (gm) 100 Fat (gm) 0 Fluid (mL) 2,000 Fiber (gm) 0 Goal #1 PN to meet nutrient needs as best possible Anticipated Discharge Needs: Unable to identify at this time Follow-Up By: 07/24/18 Additional Comments Labs in AM: BMP, Mg, Phos
[2018-07-23] MEDS ORDERED: CATAPRES-TTS PATCH TD SCH (16:00)
[2018-07-23] MEDS ORDERED: VANCOMYCIN PO PO SCH (18:00)
[2018-07-23] MEDS ORDERED: TPN ADULT 2,000 ML IV SCH (20:00)
[2018-07-23] MEDS: MORPHINE IV PRN (20:39)
[2018-07-24] MEDS: FLAGYL 500 MG/100 ML 500 MG/100 ML BAG IV SCH ×3 (02:36→17:47)
[2018-07-24] MEDS: MORPHINE IV PRN (02:36)
[2018-07-24] MEDS: APRESOLINE IV PRN ×2 (02:44→14:49)
[2018-07-24 04:31] LABS: BUN/Creatinine Ratio 31; Blood Urea Nitrogen 25 mg/dL (7-17); Calcium 8.3 mg/dL (8.4-10.2); Hemolysis Index 0
[2018-07-24] MEDS: HumaLOG SUB-Q SCH ×4 (05:19→20:37)
[2018-07-24] MEDS: VASOTEC IV SCH ×5 (05:20→23:16)
[2018-07-24] MEDS: NORMODYNE IV PRN (08:53)
[2018-07-24] MEDS: HEPARIN SUB-Q SCH ×2 (09:00→23:17)
[2018-07-24] MEDS: PROTONIX PO SCH (09:01)
[2018-07-24] MEDS: MAXIPIME/NS 2 GM/100 ML 2 GM/100 ML BAG IV SCH ×2 (12:18→23:17)
--- NOTE | 2018-07-24 15:33 | Progress Note ---
Assessment and Plan Cultures: 07/19/2018 blood culture: no growth 07/22/2018 Blood culture: no growth A/P: 87-year-old female with diabetes mellitus, congestive heart failure, HTN admitted with: #1 sepsis, present on admission likely from intra-abdominal source: Colitis versus diverticulitis versus intra-abdominal phlegmon/abscess with ?perforation v/s necrotic tumor: Gen. surgery following, Dr. Wooten, planning conservative management for now. Monitor fever and WBC. Continue empiric abx to cover bowel miranda. plan for repeat CT on Wednesday. #2 Acute encephalopathy: metabolic. 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 Recs: continue Cefepime and Flagyl Monitor fever and WBC Follow up CT abdomen and pelvis with contrast tomorrow General Surgery following Plan discussed with family. Will follow. Please call with questions. Jerald Lopez MD [facility], [place], [facility] C: [phone] O: [phone] F: [phone] Subjective Date of service: 07/24/18 Principal diagnosis: abd pain, abnormal CT Interval history: no fever. On TPN. Denies any new complaints. Discussed with family at bedside. Objective - Exam Narrative Exam: Physical Exam: Constitutional: Alert, cooperative. No acute distress Head, Ears, Nose: Normocephalic, atraumatic. External ears, nose normal Eyes: Conjunctivae/corneas clear. No icterus. No ptosis. Neck: Supple, no meningeal signs Cardiovascular: S1, S2 normal. Respiratory: Good air entry, clear to auscultation bilaterally GI: soft, mild right sided tenderness; bowel sounds +. No rebound tenderness Musculoskeletal: No pedal edema, no cyanosis. Skin: No rash or abscess Hem/Lymphatic: No palpable cervical or supraclavicular nodes. No lymphangitis Psych: Mood ok. Affect normal Neurological: Awake, alert, oriented. No gross abnormality - Constitutional Vitals: Vital Signs Temp Pulse Resp BP Pulse Ox 98.7 F 71 26 H 184/94 98 07/24/18 12:00 07/24/18 14:49 07/24/18 13:16 07/24/18 14:49 07/24/18 13:16 Temperature -Last 24 Hours Temperature 98.7 F Temperature 98.4 F Temperature 98 F Temperature 98.3 F Temperature 98.1 F Temperature 97.8 F - Labs CBC & Chem 7: 07/23/18 05:39 07/24/18 03:12 Labs: Abnormal lab results 07/23/18 07/23/18 07/24/18 Range/Units 15:41 23:12 03:12 BUN 25 H (7-17) mg/dL Glucose 191 H (65-100) mg/dL POC Glucose 187 H 231 H (70-105) Calcium 8.3 L (8.4-10.2) mg/dL Phosphorus 1.60 L (2.5-4.5) mg/dL Magnesium 1.60 L (1.7-2.3) mg/dL 07/24/18 07/24/18 Range/Units 04:34 08:21 BUN (7-17) mg/dL Glucose (65-100) mg/dL POC Glucose 224 H 187 H (70-105) Calcium (8.4-10.2) mg/dL Phosphorus (2.5-4.5) mg/dL Magnesium (1.7-2.3) mg/dL
--- NOTE | 2018-07-24 17:46 | Progress Note ---
Assessment and Plan Assessment and plan: Patient is 87 yo woman with a history of DM, CHF and hypertension who presents to [facility] ED via EMS with AMS, falling at home, feeling hot, blood glucose was in the 40s and she was given oral glucose by EMS prior to arrival. Associated with falling is diaphoresis, lose of appetite, n/v, sob x 1 day. This is patient 3rd fall at home. She did complain of right upper quadrant, sharp intermittent severe, aggravated by certain movement, relieved by different positions. * CTAP with IV contrast IMPRESSION: Extensive inflammatory changes involving the cecum and proximal ascending colon extending posteriorly with pericolonic stranding. Diagnostic consideration would include appendicitis with p erforation presuming the patient still has her appendix. The other possibility is severe diverticulitis with probable perforation. Extensive colonic diverticulosis. Uncomplicated cysts in both kidneys. Hysterectomy. Multilevel disc degeneration in the lumbar spine. Incidental note is made of a crescent- shaped area of mural thrombus at the thoracoabdominal junction involving the aorta. A remote dissection cannot entirely be excluded. * CTA chest pains IMPRESSION: 1. No evidence of pulmonary embolism. 2. Mild cardiomegaly 3. Lingular subsegmental atelectasis versus parenchymal scar 4. 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 No evidence of acute infarct or intracra nial hemorrhage. 2. White matter lucency consistent with chronic microvascular ischemic disease. 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 Follow-up on current diagnosis. Overnight uneventful. Patient denies any chest pain, shortness breath, nausea/vomiting or severe headaches. Imaging, nursing note, chart, labs and old chart reviewed. Di scussed with patient. Hospitalist Physical - Physical exam Narrative exam: Gen: WDWN, NAD, Awake, Alert, Orientated x 1 HEENT: NCAT, EOMI, PERRL, OP Clear Neck: supple, no adenopathy, no thyromegaly, no JVD CVS/Heart: RRR, normal S1S2, pulses present bilaterally Chest/Lungs: diminished bs bilateral, Symmetrical chest expansion, good air entry bilaterally GI/Abdomen: soft diffusely tender, good bowel sounds, no guarding or rebound /Bladder: no suprapubic tenderness, no CVA or paraspinal tenderness Extermity/Skin: no c/c/e, no obvious rash MSK: FROM x 4 Neuro: CN 2-12 grossly intact, no new focal deficits Psych: calm - Constitutional Vitals: Temp Pulse Resp BP Pulse Ox 98.7 F 71 26 H 184/94 98 07/24/18 12:00 07/24/18 14:49 07/24/18 13:16 07/24/18 14:49 07/24/18 13:16 Results - Labs CBC & Chem 7: 07/23/18 05:39 07/24/18 03:12 Labs: Laboratory Last Values WBC 7.8 K/mm3 (4.5-11.0) 07/23/18 05:39 RBC 3.04 M/mm3 (3.65-5.03) L 07/23/18 05:39 Hgb 8.3 gm/dl (10.1-14.3) L 07/23/18 05:39 Hct 25.6 % (30.3-42.9) L 07/23/18 05:39 MCV 84 fl (79-97) 07/23/18 05:39 MCH 27 pg (28-32) L 07/23/18 05:39 MCHC 32 % (30-34) 07/23/18 05:39 RDW 16.7 % (13.2-15.2) H 07/23/18 05:39 Plt Count 340 K/mm3 (140-440) 07/23/18 05:39 Lymph % (Auto) 13.1 % (13.4-35.0) L 07/23/18 05:39 [place] % (Auto) 8.1 % (0.0-7.3) H 07/23/18 05:39 Eos % (Auto) 1.1 % (0.0-4.3) 07/23/18 05:39 Baso % (Auto) 0.7 % (0.0-1.8) 07/23/18 05:39 Lymph # 1.0 K/mm3 (1.2-5.4) L 07/23/18 05:39 [place] # 0.6 K/mm3 (0.0-0.8) 07/23/18 05:39 Eos # 0.1 K/mm3 (0.0-0.4) 07/23/18 05:39 Baso # 0.1 K/mm3 (0.0-0.1) 07/23/18 05:39 Seg Neutrophils % 77.0 % (40.0-70.0) H 07/23/18 05:39 Seg Neutrophils # 6.0 K/mm3 (1.8-7.7) 07/23/18 05:39 PT 14.4 Sec. (12.2-14.9) 07/18/18 20:48 INR 1.08 (0.87-1.13) 07/18/18 20:48 APTT 23.2 Sec. (24.2-36.6) L 07/18/18 20:48 Sodium 137 mmol/L (137-145) 07/24/18 03:12 Potassium 3.8 mmol/L (3.6-5.0) 07/24/18 03:12 Chloride 104.1 mmol/L (98-107) 07/24/18 03:12 Carbon Dioxide 24 mmol/L (22-30) 07/24/18 03:12 Anion Gap 13 mmol/L 07/24/18 03:12 BUN 25 mg/dL (7-17) H 07/24/18 03:12 Creatinine 0.8 mg/dL (0.7-1.2) 07/24/18 03:12 Estimated GFR > 60 ml/min 07/24/18 03:12 BUN/Creatinine Ratio 31 % 07/24/18 03:12 Glucose 191 mg/dL (65-100) H 07/24/18 03:12 POC Glucose 192 (70-105) H 07/24/18 16:55 Lactic Acid 1.10 mmol/L (0.7-2.0) 07/19/18 17:04 Calcium 8.3 mg/dL (8.4-10.2) L 07/24/18 03:12 Phosphorus 1.60 mg/dL (2.5-4.5) L 07/24/18 03:12 Magnesium 1.60 mg/dL (1.7-2.3) L 07/24/18 03:12 Total Bilirubin 0.20 mg/dL (0.1-1.2) 07/23/18 05:39 AST 20 units/L (5-40) 07/23/18 05:39 ALT 7 units/L (7-56) 07/23/18 05:39 Alkaline Phosphatase 56 units/L (35-129) 07/23/18 05:39 Total Creatine Kinase 48 units/L (30-135) 07/18/18 20:48 CK-MB (CK-2) < 1.0 ng/mL (0.0-4.0) 07/18/18 20:48 CK-MB (CK-2) Rel Index 2.0 (0-4) 07/18/18 20:48 Troponin T 0.025 ng/mL (0.00-0.029) 07/18/18 20:48 NT-Pro-B Natriuret Pep 462.4 pg/mL (0-900) 07/18/18 20:48 Total Protein 6.4 g/dL (6.3-8.2) 07/23/18 05:39 Albumin 2.8 g/dL (3.9-5) L 07/23/18 05:39 Albumin/Globulin Ratio 0.8 % 07/23/18 05:39 Urine Color Yellow (Yellow) 07/18/18 21:49 Urine Turbidity Clear (Clear) 07/18/18 21:49 Urine pH 5.0 (5.0-7.0) 07/18/18 21:49 Ur Specific [place] 1.019 (1.003-1.030) 07/18/18 21:49 Urine Protein <15 mg/dl mg/dL (Negative) 07/18/18 21:49 Urine Glucose (UA) Neg mg/dL (Negative) 07/18/18 21:49 Urine Ketones Neg mg/dL (Negative) 07/18/18 21:49 Urine Blood Neg (Negative) 07/18/18 21:49 Urine Nitrite Neg (Negative) 07/18/18 21:49 Urine Bilirubin Neg (Negative) 07/18/18 21:49 Urine Urobilinogen 4.0 mg/dL (<2.0) 07/18/18 21:49 Ur Leukocyte Esterase Neg (Negative) 07/18/18 21:49 Urine WBC (Auto) 2.0 /HPF (0.0-6.0) 07/18/18 21:49 Urine RBC (Auto) < 1.0 /HPF (0.0-6.0) 07/18/18 21:49 U Epithel Cells (Auto) 3.0 /HPF (0-13.0) 07/18/18 21:49 Urine Mucus Few /HPF 07/18/18 21:49 Nutrition/Malnutrition Assess - Dietary Evaluation Nutrition/Malnutrition Findings: Nutrition Notes Start: 07/22/18 14:00 Freq: Status: Active Protocol: Document 07/24/18 10:12 LP (Rec: 07/24/18 10:16 LP [id number]) Nutrition Notes Initial or Follow up Reassessment Current Diagnoses Diabetes Sepsis Hypertension Heart Failure Other Pertinent Diagnosis 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 Percent of energy/protein needs met: 54% energy 100% protein Burn Absent Trauma Absent #1 Nutrition Diagnoses Altered GI function Diagnosis Progress(for reassessment Continues documentation) Is patient on ventilator? No Is Patient Ambulatory and/or Out of Bed No REE-([facility]-confined to bed) 1728.312 Kcal/Kg value to use for calculation 13 Approximate Energy Requirements Using 1292 kcal/Kg Calculation Used for Recommendations Kcal/kg Additional Notes Pro needs 1-1.2g/kg adjBW: 78- 94g/day Fluid needs 1ml/kcal Nutrition Intervention Change Diet Order: PPN Nutrition Support: PPN at 83.33ml/hr: 170mEq Na, 70mEq K, 25mEq Mg, 40mmol phos, Chloride:Acetate 50:50, MVI, Thiamine Osmolality: 838 Kcal 700 Protein (gm) 90 Carbohydrates (gm) 100 Fat (gm) 0 Fluid (mL) 2,000 Fiber (gm) 0 Goal #1 PN to meet nutrient needs as best possible Anticipated Discharge Needs: Unable to identify at this time Follow-Up By: 07/25/18 Additional Comments Labs in AM: BMP, Mg, Phos
[2018-07-24] MEDS ORDERED: TPN ADULT 1,999.9 ML IV SCH (20:00)
[2018-07-24] MEDS ORDERED: PROVENTIL IH PRN (20:13)
[2018-07-25] MEDS: APRESOLINE IV PRN ×3 (00:10→13:21)
[2018-07-25] MEDS: HumaLOG SUB-Q SCH ×7 (00:14→23:32)
[2018-07-25] MEDS: FLAGYL 500 MG/100 ML 500 MG/100 ML BAG IV SCH ×3 (02:36→17:25)
[2018-07-25 04:53] LABS: BUN/Creatinine Ratio 33; Blood Urea Nitrogen 23 mg/dL (7-17); Calcium 8.4 mg/dL (8.4-10.2); Hemolysis Index 2
[2018-07-25] MEDS: VASOTEC IV SCH ×3 (06:28→19:57)
--- NOTE | 2018-07-25 07:14 | Progress Note ---
Assessment and Plan Assessment and plan: Patient is 87 yo woman with a history of DM, CHF and hypertension who presents to [facility] ED via EMS with AMS, falling at home, feeling hot, blood glucose was in the 40s and she was given oral glucose by EMS prior to arrival. Associated with falling is diaphoresis, lose of appetite, n/v, sob x 1 day. This is patient 3rd fall at home. She did complain of right upper quadrant, sharp intermittent severe, aggravated by certain movement, relieved by different positions. * CTAP with IV contrast IMPRESSION: Extensive inflammatory changes involving the cecum and proximal ascending colon extending posteriorly with pericolonic stranding. Diagnostic consideration would include appendicitis with p erforation presuming the patient still has her appendix. The other possibility is severe diverticulitis with probable perforation. Extensive colonic diverticulosis. Uncomplicated cysts in both kidneys. Hysterectomy. Multilevel disc degeneration in the lumbar spine. Incidental note is made of a crescent- shaped area of mural thrombus at the thoracoabdominal junction involving the aorta. A remote dissection cannot entirely be excluded. * CTA chest pains IMPRESSION: 1. No evidence of pulmonary embolism. 2. Mild cardiomegaly 3. Lingular subsegmental atelectasis versus parenchymal scar 4. 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 No evidence of acute infarct or intracra nial hemorrhage. 2. White matter lucency consistent with chronic microvascular ischemic disease. 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 repeat CT abd/pelvis today bronchospasm today, stopped labetalol, consulted Pulmonology, add nebs, get cxr History Interval history: Patient was seen and examined. Follow-up on current diagnosis of bowel per foration. Overnight uneventful. Patient denies any chest pain, shortness breath, nausea/vomiting or severe headaches. Imaging, nursing note, chart, labs and old chart reviewed. Discussed with patient. Hospitalist Physical - Physical exam Narrative exam: Gen: WDWN, NAD, Awake, Alert, Orientated x 1 HEENT: NCAT, EOMI, PERRL, OP Clear Neck: supple, no adenopathy, no thyromegaly, no JVD CVS/Heart: RRR, normal S1S2, pulses present bilaterally Chest/Lungs: diminished bs bilateral, Symmetrical chest expansion, good air entry bilaterally GI/Abdomen: soft diffusely tender, good bowel sounds, no guarding or rebound /Bladder: no suprapubic tenderness, no CVA or paraspinal tenderness Extermity/Skin: no c/c/e, no obvious rash MSK: FROM x 4 Neuro: CN 2-12 grossly intact, no new focal deficits Psych: calm - Constitutional Vitals: Temp Pulse Resp BP Pulse Ox 98 F 102 H 24 187/87 98 07/25/18 00:00 07/25/18 06:46 07/25/18 06:46 07/25/18 06:46 07/25/18 06:46 Results - Labs CBC & Chem 7: 07/23/18 05:39 07/25/18 03:58 Labs: Laboratory Last Values WBC 7.8 K/mm3 (4.5-11.0) 07/23/18 05:39 RBC 3.04 M/mm3 (3.65-5.03) L 07/23/18 05:39 Hgb 8.3 gm/dl (10.1-14.3) L 07/23/18 05:39 Hct 25.6 % (30.3-42.9) L 07/23/18 05:39 MCV 84 fl (79-97) 07/23/18 05:39 MCH 27 pg (28-32) L 07/23/18 05:39 MCHC 32 % (30-34) 07/23/18 05:39 RDW 16.7 % (13.2-15.2) H 07/23/18 05:39 Plt Count 340 K/mm3 (140-440) 07/23/18 05:39 Lymph % (Auto) 13.1 % (13.4-35.0) L 07/23/18 05:39 [place] % (Auto) 8.1 % (0.0-7.3) H 07/23/18 05:39 Eos % (Auto) 1.1 % (0.0-4.3) 07/23/18 05:39 Baso % (Auto) 0.7 % (0.0-1.8) 07/23/18 05:39 Lymph # 1.0 K/mm3 (1.2-5.4) L 07/23/18 05:39 [place] # 0.6 K/mm3 (0.0-0.8) 07/23/18 05:39 Eos # 0.1 K/mm3 (0.0-0.4) 07/23/18 05:39 Baso # 0.1 K/mm3 (0.0-0.1) 07/23/18 05:39 Seg Neutrophils % 77.0 % (40.0-70.0) H 07/23/18 05:39 Seg Neutrophils # 6.0 K/mm3 (1.8-7.7) 07/23/18 05:39 PT 14.4 Sec. (12.2-14.9) 07/18/18 20:48 INR 1.08 (0.87-1.13) 07/18/18 20:48 APTT 23.2 Sec. (24.2-36.6) L 07/18/18 20:48 Sodium 140 mmol/L (137-145) 07/25/18 03:58 Potassium 3.6 mmol/L (3.6-5.0) 07/25/18 03:58 Chloride 105.1 mmol/L (98-107) 07/25/18 03:58 Carbon Dioxide 25 mmol/L (22-30) 07/25/18 03:58 Anion Gap 14 mmol/L 07/25/18 03:58 BUN 23 mg/dL (7-17) H 07/25/18 03:58 Creatinine 0.7 mg/dL (0.7-1.2) 07/25/18 03:58 Estimated GFR > 60 ml/min 07/25/18 03:58 BUN/Creatinine Ratio 33 % 07/25/18 03:58 Glucose 197 mg/dL (65-100) H 07/25/18 03:58 POC Glucose 196 (70-105) H 07/25/18 02:44 Lactic Acid 1.10 mmol/L (0.7-2.0) 07/19/18 17:04 Calcium 8.4 mg/dL (8.4-10.2) 07/25/18 03:58 Phosphorus 2.30 mg/dL (2.5-4.5) L D 07/25/18 03:58 Magnesium 1.90 mg/dL (1.7-2.3) 07/25/18 03:58 Total Bilirubin 0.20 mg/dL (0.1-1.2) 07/23/18 05:39 AST 20 units/L (5-40) 07/23/18 05:39 ALT 7 units/L (7-56) 07/23/18 05:39 Alkaline Phosphatase 56 units/L (35-129) 07/23/18 05:39 Total Creatine Kinase 48 units/L (30-135) 07/18/18 20:48 CK-MB (CK-2) < 1.0 ng/mL (0.0-4.0) 07/18/18 20:48 CK-MB (CK-2) Rel Index 2.0 (0-4) 07/18/18 20:48 Troponin T 0.025 ng/mL (0.00-0.029) 07/18/18 20:48 NT-Pro-B Natriuret Pep 462.4 pg/mL (0-900) 07/18/18 20:48 Total Protein 6.4 g/dL (6.3-8.2) 07/23/18 05:39 Albumin 2.8 g/dL (3.9-5) L 07/23/18 05:39 Albumin/Globulin Ratio 0.8 % 07/23/18 05:39 Urine Color Yellow (Yellow) 07/18/18 21:49 Urine Turbidity Clear (Clear) 07/18/18 21:49 Urine pH 5.0 (5.0-7.0) 07/18/18 21:49 Ur Specific [place] 1.019 (1.003-1.030) 07/18/18 21:49 Urine Protein <15 mg/dl mg/dL (Negative) 07/18/18 21:49 Urine Glucose (UA) Neg mg/dL (Negative) 07/18/18 21:49 Urine Ketones Neg mg/dL (Negative) 07/18/18 21:49 Urine Blood Neg (Negative) 07/18/18 21:49 Urine Nitrite Neg (Negative) 07/18/18 21:49 Urine Bilirubin Neg (Negative) 07/18/18 21:49 Urine Urobilinogen 4.0 mg/dL (<2.0) 07/18/18 21:49 Ur Leukocyte Esterase Neg (Negative) 07/18/18 21:49 Urine WBC (Auto) 2.0 /HPF (0.0-6.0) 07/18/18 21:49 Urine RBC (Auto) < 1.0 /HPF (0.0-6.0) 07/18/18 21:49 U Epithel Cells (Auto) 3.0 /HPF (0-13.0) 07/18/18 21:49 Urine Mucus Few /HPF 07/18/18 21:49 Nutrition/Malnutrition Assess - Dietary Evaluation Nutrition/Malnutrition Findings: Nutrition Notes Start: 07/22/18 14:00 Freq: Status: Active Protocol: Document 07/24/18 10:12 LP (Rec: 07/24/18 10:16 LP [id number]) Nutrition Notes Initial or Follow up Reassessment Current Diagnoses Diabetes Sepsis Hypertension Heart Failure Other Pertinent Diagnosis 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 Percent of energy/protein needs met: 54% energy 100% protein Burn Absent Trauma Absent #1 Nutrition Diagnoses Altered GI function Diagnosis Progress(for reassessment Continues documentation) Is patient on ventilator? No Is Patient Ambulatory and/or Out of Bed No REE-([facility]confined [facility] bed) 1728.312 Kcal/Kg value to use for calculation 13 Approximate Energy Requirements Using 1292 kcal/Kg Calculation Used for Recommendations Kcal/kg Additional Notes Pro needs 1-1.2g/kg adjBW: 78- 94g/day Fluid needs 1ml/kcal Nutrition Intervention Change Diet Order: PPN Nutrition Support: PPN at 83.33ml/hr: 170mEq Na, 70mEq K, 25mEq Mg, 40mmol phos, Chloride:Acetate 50:50, MVI, Thiamine Osmolality: 838 Kcal 700 Protein (gm) 90 Carbohydrates (gm) 100 Fat (gm) 0 Fluid (mL) 2,000 Fiber (gm) 0 Goal #1 PN to meet nutrient needs as best possible Anticipated Discharge Needs: Unable to identify at this time Follow-Up By: 07/25/18 Additional Comments Labs in AM: BMP, Mg, Phos
--- NOTE | 2018-07-25 08:51 | Progress Note ---
Assessment and Plan Cultures: 07/19/2018 blood culture: no growth 07/22/2018 Blood culture: no growth A/P: 87-year-old female with diabetes mellitus, congestive heart failure, HTN admitted with: 1) Sepsis: improving- fever and leukocytosis resolved; likely from intra- abdominal source -Cecal Colitis versus diverticulitis versus intra-abdominal phlegmon/abscess with ?perforation v/s necrotic tumor 2) Acute encephalopathy: metabolic- resolved 3) DM-2 - stable 4) ? wheezing/ SOB ? volume overload, ?asthma, CXR 07/22/2017 lungs clear Recs: - continue Cefepime and Flagyl D7 - CT abdomen and pelvis with contrast today - repeat CXR - check CRP - General Surgery following Will follow. MD Lisa [facility] C: [phone] O: [phone] F: [phone] Subjective Date of service: 07/25/18 Principal diagnosis: abd pain, abnormal CT Interval history: Patient reports feeling better. C/o mild SOB and cough. No fever for 48h. No need for pressors. Objective - Exam Narrative Exam: Constitutional: Alert, cooperative. In mild resp distress on NC O2 Head, Ears, Nose: Normocephalic, atraumatic. External ears, nose normal Eyes: Conjunctivae/corneas clear. No icterus. No ptosis. Neck: Supple, no meningeal signs Cardiovascular: tachycardic Respiratory: Good air entry, clear to auscultation bilaterally GI: soft, no tenderness; bowel sounds +. No rebound tenderness Musculoskeletal: No pedal edema, no cyanosis. Skin: No rash or abscess Hem/Lymphatic: No palpable cervical or supraclavicular nodes. No lymphangitis Psych: Mood ok. Affect normal Neurological: Awake, alert, oriented. No gross abnormality - Constitutional Vitals: Vital Signs Temp Pulse Resp BP Pulse Ox 97.8 F 102 H 24 187/87 98 07/25/18 04:00 07/25/18 06:46 07/25/18 06:46 07/25/18 06:46 07/25/18 06:46 Temperature -Last 24 Hours Temperature 97.8 F Temperature 98 F Temperature 98.1 F Temperature 98.4 F Temperature 98.7 F - Labs CBC & Chem 7: 07/23/18 05:39 07/25/18 03:58 Labs: Abnormal lab results 07/24/18 07/24/18 07/24/18 Range/Units 12:12 16:55 20:30 BUN (7-17) mg/dL Glucose (65-100) mg/dL POC Glucose 167 H 192 H 192 H (70-105) Phosphorus (2.5-4.5) mg/dL 07/24/18 07/25/18 07/25/18 Range/Units 23:38 02:44 03:58 BUN 23 H (7-17) mg/dL Glucose 197 H (65-100) mg/dL POC Glucose 181 H 196 H (70-105) Phosphorus 2.30 L D (2.5-4.5) mg/dL
[2018-07-25] MEDS: NORMODYNE IV PRN (09:02)
[2018-07-25] MEDS: MAXIPIME/NS 2 GM/100 ML 2 GM/100 ML BAG IV SCH ×2 (09:02→22:39)
[2018-07-25] MEDS: CATAPRES-TTS PATCH TD SCH (09:02)
--- NOTE | 2018-07-25 10:18 | XRay Report ---
AP CHEST: HISTORY: Shortness of breath and wheezing Mild cardiomegaly mild central pulmonary venous congestion appear relatively stable since 07/22/18. The lungs are clear. No evidence for pneumonia, large pleural effusion or pneumothorax. The bony structures are within normal limits. IMPRESSION: Mild cardiomegaly and pulmonary venous congestion.
--- NOTE | 2018-07-25 11:09 | Cat Scan Report ---
CT ABDOMEN PELVIS WITHOUT CONTRAST: HISTORY: Right lower quadrant abdominal mass. COMPARISON: 07/19/18. TECHNIQUE: Helical CT in 1.25mm intervals without IV contrast. Sagittal and coronal reconstructions. FINDINGS: Small layering pleural effusions have developed measuring up to 1 cm in thickness. Heart size is stable at the upper limits of normal. The visualized lung bases are adequately aerated. The masslike lesion in the ascending colon appears stable in size and contour. There is no evidence for obstruction or leakage of contrast. There are scattered diverticula in the proximal colon. Mild inflammatory changes adjacent to this masslike lesion have decreased by 20% since the previous exam. It is unclear if this represents a colon mass or is associated with diverticulitis. I favor a colon mass. The liver, biliary system, pancreas, spleen, kidneys and adrenal glands remain unremarkable. The pelvic viscera are within normal limits. Hysterectomy changes are noted. IMPRESSION: Inflammatory changes adjacent to the right colon mass or diverticulitis has improved slightly. Overall, no overwhelming change. No new acute process. New small layering pleural effusions.
--- NOTE | 2018-07-25 13:18 | Progress Note ---
Assessment and Plan Pt status quo. no compl. Uncotrolled HTN Abd soft, non tender reviewed CT from am with radiologist inflammation somewhat improved but just slightly would suspect if this is strictly inflammatory, would see even more resolution by this time tumor with necrosis? would be reluctant to proceed with colonoscopy yet since diverticulitis with possible microperforation is still in differential. radiologists recommends BE will order Selected Entries 07/25/18 07/25/18 07/25/18 12:00 12:16 12:30 Temperature 98.6 F Pulse Rate 76 Respiratory 17 Rate Blood Pressure 196/85 Objective Vital Signs - 12hr 07/25/18 07/25/18 07/25/18 01:16 01:30 01:46 Temperature Pulse Rate 96 H 101 H 100 H Pulse Rate [ From Monitor] Respiratory 21 18 33 H Rate Blood Pressure 191/89 191/89 191/89 O2 Sat by Pulse 97 98 99 Oximetry 07/25/18 07/25/18 07/25/18 02:00 02:16 02:30 Temperature Pulse Rate 90 91 H 90 Pulse Rate [ From Monitor] Respiratory 21 28 H 25 H Rate Blood Pressure 180/68 180/68 180/68 O2 Sat by Pulse 95 99 98 Oximetry 07/25/18 07/25/18 07/25/18 02:46 03:00 03:16 Temperature Pulse Rate 104 H 101 H 98 H Pulse Rate [ From Monitor] Respiratory 35 H 32 H 19 Rate Blood Pressure 180/68 191/90 191/90 O2 Sat by Pulse 98 96 99 Oximetry 07/25/18 07/25/18 07/25/18 03:30 03:46 04:00 Temperature 97.8 F Pulse Rate 99 H 99 H 105 H Pulse Rate [ 86 From Monitor] Respiratory 23 20 27 H Rate Blood Pressure 191/90 191/90 184/96 O2 Sat by Pulse 99 98 98 Oximetry 07/25/18 07/25/18 07/25/18 04:14 04:16 04:30 Temperature Pulse Rate 101 H 101 H 104 H Pulse Rate [ From Monitor] Respiratory 35 H 24 Rate Blood Pressure 184/96 184/96 184/96 O2 Sat by Pulse 97 98 Oximetry 07/25/18 07/25/18 07/25/18 04:46 05:00 05:16 Temperature Pulse Rate 103 H 102 H 103 H Pulse Rate [ From Monitor] Respiratory 32 H 33 H 33 H Rate Blood Pressure 184/96 188/79 188/79 O2 Sat by Pulse 98 96 97 Oximetry 07/25/18 07/25/18 07/25/18 05:30 05:46 06:00 Temperature Pulse Rate 102 H 102 H 102 H Pulse Rate [ From Monitor] Respiratory 32 H 34 H 30 H Rate Blood Pressure 184/96 184/96 187/87 O2 Sat by Pulse 98 98 95 Oximetry 07/25/18 07/25/18 07/25/18 06:16 06:28 06:30 Temperature Pulse Rate 112 H 105 H 107 H Pulse Rate [ From Monitor] Respiratory 40 H 18 Rate Blood Pressure 187/87 187/87 187/87 O2 Sat by Pulse 95 97 Oximetry 07/25/18 07/25/18 07/25/18 06:46 07:00 07:16 Temperature Pulse Rate 102 H 101 H 100 H Pulse Rate [ From Monitor] Respiratory 24 34 H 25 H Rate Blood Pressure 187/87 183/88 183/88 O2 Sat by Pulse 98 95 97 Oximetry 07/25/18 07/25/18 07/25/18 07:30 07:46 08:00 Temperature Pulse Rate 107 H 103 H 101 H Pulse Rate [ 76 From Monitor] Respiratory 22 24 27 H Rate Blood Pressure 183/88 183/88 192/97 O2 Sat by Pulse 98 98 97 Oximetry 07/25/18 07/25/18 07/25/18 08:16 08:30 08:46 Temperature Pulse Rate 103 H 102 H 100 H Pulse Rate [ From Monitor] Respiratory 24 33 H 25 H Rate Blood Pressure 192/97 192/97 192/97 O2 Sat by Pulse 99 99 99 Oximetry 07/25/18 07/25/18 07/25/18 09:00 09:02 09:16 Temperature Pulse Rate 101 H 97 H 72 Pulse Rate [ From Monitor] Respiratory 34 H 25 H Rate Blood Pressure 196/98 196/98 196/98 O2 Sat by Pulse 96 99 Oximetry 07/25/18 07/25/18 07/25/18 10:00 10:44 10:46 Temperature Pulse Rate 86 69 71 Pulse Rate [ From Monitor] Respiratory 34 H 33 H Rate Blood Pressure 196/98 196/98 O2 Sat by Pulse 100 100 Oximetry 07/25/18 07/25/18 07/25/18 11:00 11:16 11:30 Temperature Pulse Rate 73 73 74 Pulse Rate [ From Monitor] Respiratory 32 H 23 32 H Rate Blood Pressure 182/93 182/93 182/93 O2 Sat by Pulse 99 100 100 Oximetry 07/25/18 07/25/18 07/25/18 11:41 11:46 12:00 Temperature 98.6 F Pulse Rate 74 78 78 Pulse Rate [ From Monitor] Respiratory 12 23 Rate Blood Pressure 182/93 182/93 182/93 O2 Sat by Pulse 99 96 Oximetry 07/25/18 07/25/18 12:16 12:30 Temperature Pulse Rate 75 76 Pulse Rate [ From Monitor] Respiratory 17 31 H Rate Blood Pressure 196/85 196/85 O2 Sat by Pulse 100 100 Oximetry - Labs 07/23/18 05:39 07/25/18 03:58 Diabetes panel 07/25/18 Range/Units 03:58 Sodium 140 (137-145) mmol/L Potassium 3.6 (3.6-5.0) mmol/L Chloride 105.1 (98-107) mmol/L Carbon Dioxide 25 (22-30) mmol/L BUN 23 H (7-17) mg/dL Creatinine 0.7 (0.7-1.2) mg/dL Glucose 197 H (65-100) mg/dL Calcium 8.4 (8.4-10.2) mg/dL Calcium panel 07/25/18 Range/Units 03:58 Calcium 8.4 (8.4-10.2) mg/dL Phosphorus 2.30 L D (2.5-4.5) mg/dL Pituitary panel 07/25/18 Range/Units 03:58 Sodium 140 (137-145) mmol/L Potassium 3.6 (3.6-5.0) mmol/L Chloride 105.1 (98-107) mmol/L Carbon Dioxide 25 (22-30) mmol/L BUN 23 H (7-17) mg/dL Creatinine 0.7 (0.7-1.2) mg/dL Glucose 197 H (65-100) mg/dL Calcium 8.4 (8.4-10.2) mg/dL Adrenal panel 07/25/18 Range/Units 03:58 Sodium 140 (137-145) mmol/L Potassium 3.6 (3.6-5.0) mmol/L Chloride 105.1 (98-107) mmol/L Carbon Dioxide 25 (22-30) mmol/L BUN 23 H (7-17) mg/dL Creatinine 0.7 (0.7-1.2) mg/dL Glucose 197 H (65-100) mg/dL Calcium 8.4 (8.4-10.2) mg/dL
[2018-07-25] MEDS: HEPARIN SUB-Q SCH ×2 (13:23→22:39)
[2018-07-25] MEDS: PROTONIX PO SCH (13:23)
[2018-07-25] MEDS ORDERED: LASIX IV ONE (15:22)
[2018-07-25] MEDS: DUONEB *Not for PRN Use IH SCH ×2 (17:14→20:04)
[2018-07-25] MEDS ORDERED: TPN ADULT 1,999.92 ML IV SCH (20:00)
[2018-07-26] MEDS: VASOTEC IV SCH ×5 (00:46→17:59)
[2018-07-26] MEDS: FLAGYL 500 MG/100 ML 500 MG/100 ML BAG IV SCH ×3 (02:17→19:30)
[2018-07-26] MEDS: APRESOLINE IV PRN ×3 (02:21→23:10)
[2018-07-26] MEDS: HumaLOG SUB-Q SCH ×5 (03:37→23:10)
[2018-07-26 05:23] LABS: BUN/Creatinine Ratio 31; Blood Urea Nitrogen 22 mg/dL (7-17); Calcium 8.3 mg/dL (8.4-10.2); Hemolysis Index 11
[2018-07-26] MEDS: DUONEB *Not for PRN Use IH SCH ×3 (08:24→21:07)
--- NOTE | 2018-07-26 10:49 | Progress Note ---
Assessment and Plan Cultures: 07/19/2018 blood culture: no growth 07/22/2018 Blood culture: no growth Assessment: 87-year-old female with diabetes mellitus, congestive heart failure, HTN admitted with: 1) Sepsis: resolved; likely from intra-abdominal source 2) Cecal diverticulitis versus intra-abdominal phlegmon/abscess with ?perforation versus necrotic tumor: slight better - repeat CT 07/25 showed the masslike lesion in the ascending colon appears s table in size and contour. There is no evidence for obstruction or leakage of contrast. There are scattered diverticula in the proximal colon. Mild inflammatory changes adjacent to this masslike lesion have decreased by 20% since the previous exam. It is unclear if this represents a colon mass or is associated with diverticulitis. - CRP = 4.3 3) Acute encephalopathy: metabolic- resolved 4) DM-2 - stable 5) ? wheezing/ SOB: better; likely volume overload, CXR 07/25 +pulmonary edema Recs: - continue Cefepime and Flagyl D8 - Surgery ordered Barium enema today - If evidence of abscess will require abx for 14 days - General Surgery following Will follow. MD Lisa [facility] C: [phone] O: [phone] F: [phone] Subjective Date of service: 07/26/18 Principal diagnosis: abd pain, abnormal CT Interval history: Patient reports feeling better today, SOB has improved after lasix. No fever for 72h. No need for pressors. Denies abdominal pain. Objective - Exam Narrative Exam: Constitutional: Alert, cooperative in NAD NC O2 Head, Ears, Nose: Normocephalic, atraumatic. External ears, nose normal Eyes: Conjunctivae/corneas clear. No icterus. No ptosis. Neck: Supple, no meningeal signs Cardiovascular: tachycardic Respiratory: Good air entry, clear to auscultation bilaterally GI: soft, no tenderness; bowel sounds +. No rebound tenderness Musculoskeletal: No pedal edema, no cyanosis. Skin: No rash or abscess Hem/Lymphatic: No palpable cervical or supraclavicular nodes. No lymphangitis Psych: Mood ok. Affect normal Neurological: Awake, alert, oriented. No gross abnormality - Constitutional Vitals: Vital Signs Temp Pulse Resp BP Pulse Ox 97.5 F L 102 H 27 H 200/93 100 07/26/18 04:00 07/26/18 08:45 07/26/18 08:25 07/26/18 08:45 07/26/18 08:26 Temperature -Last 24 Hours Temperature 97.5 F Temperature 98.4 F Temperature 98.4 F Temperature 98.7 F Temperature 98.6 F - Labs CBC & Chem 7: 07/23/18 05:39 07/26/18 04:13 Labs: Abnormal lab results 07/25/18 07/25/18 07/25/18 Range/Units 12:04 16:33 19:50 BUN (7-17) mg/dL Glucose (65-100) mg/dL POC Glucose 153 H 204 H 213 H (70-105) Calcium (8.4-10.2) mg/dL 07/25/18 07/26/18 07/26/18 Range/Units 22:52 02:38 04:13 BUN 22 H (7-17) mg/dL Glucose 180 H (65-100) mg/dL POC Glucose 182 H 169 H (70-105) Calcium 8.3 L (8.4-10.2) mg/dL 07/26/18 Range/Units 06:37 BUN (7-17) mg/dL Glucose (65-100) mg/dL POC Glucose 156 H (70-105) Calcium (8.4-10.2) mg/dL
--- NOTE | 2018-07-26 12:36 | Progress Note ---
Assessment and Plan Assessment and plan: Patient is 87 yo woman with a history of DM, CHF and hypertension who presents to [facility] ED via EMS with AMS, falling at home, feeling hot, blood glucose was in the 40s and she was given oral glucose by EMS prior to arrival. Associated with falling is diaphoresis, lose of appetite, n/v, sob x 1 day. This is patient 3rd fall at home. She did complain of right upper quadrant, sharp intermittent severe, aggravated by certain movement, relieved by different positions. * CTAP with IV contrast IMPRESSION: Extensive inflammatory changes involving the cecum and proximal ascending colon extending posteriorly with pericolonic stranding. Diagnostic consideration would include appendicitis with p erforation presuming the patient still has her appendix. The other possibility is severe diverticulitis with probable perforation. Extensive colonic diverticulosis. Uncomplicated cysts in both kidneys. Hysterectomy. Multilevel disc degeneration in the lumbar spine. Incidental note is made of a crescent- shaped area of mural thrombus at the thoracoabdominal junction involving the aorta. A remote dissection cannot entirely be excluded. * CTA chest pains IMPRESSION: 1. No evidence of pulmonary embolism. 2. Mild cardiomegaly 3. Lingular subsegmental atelectasis versus parenchymal scar 4. 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 No evidence of acute infarct or intracra nial hemorrhage. 2. White matter lucency consistent with chronic microvascular ischemic disease. 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, suspect with perforation versus necrotic Colon Cancer vs Cecal diverticulitis perforation versus intra-abdominal phlegmon/abscess vs other : Keep NPO, Starting TPN, GS and ID following Hypertensive urgency, Bp still not controlled: catapress patch, iv enalapril, iv hydralazine and iv labetalol, Recurrent falls with episodes of hypoglycemia: hold DM medication(s), treated with dextrose, following accuchecks Sepsis with suspected perforated bowel from appendix vs diverticuli: Repeat imaging concerning more for tumor necrosis syndrome.Continue abx per ID Cefepime and flagyl Acute metabolic encephalopathy: treat the hypoglycemia and sepsis 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 Heart size is stable at the upper limits of normal. The visualized lung bases are adequately aerated. The masslike lesion in the ascending colon appears stable in size and contour. There is no evidence for obstruction or leakage of contrast. There are scattered diverticula in the proximal colon. Mild inflammatory changes adjacent to this masslike lesion have decreased by 20% since the previous exam. It is unclear if this represents a colon mass or is associated with diverticulitis. I favor a colon mass. The liver, biliary system, pancreas, spleen, kidneys and adrenal glands remain unremarkable. The pelvic viscera are within normal limits. Hysterectomy changes are noted. IMPRESSION: Inflammatory changes adjacent to the right colon mass or diverticulitis has improved slightly. Overall, no overwhelming change. No new acute process. New small layering pleural effusions. doing better today, iv lasix did help, going for barium enema today. added iv labetalol prn for better blood pressure control==>next step would be IV cardene drip or iv nitroglycerin drip CCT 32 minutes History Interval history: Patient was seen and examined. Follow-up on current diagnosis of bowel perforati on. Overnight uneventful. Patient denies any chest pain, shortness breath, nausea/vomiting or severe headaches. Imaging, nursing note, chart, labs and old chart reviewed. Discussed with patient. Hospitalist Physical - Physical exam Narrative exam: Gen: WDWN, NAD, Awake, Alert, Orientated x 1 HEENT: NCAT, EOMI, PERRL, OP Clear Neck: supple, no adenopathy, no thyromegaly, no JVD CVS/Heart: RRR, normal S1S2, pulses present bilaterally Chest/Lungs: diminished bs bilateral, Symmetrical chest expansion, good air entry bilaterally GI/Abdomen: soft diffusely tender, good bowel sounds, no guarding or rebound /Bladder: no suprapubic tenderness, no CVA or paraspinal tenderness Extermity/Skin: no c/c/e, no obvious rash MSK: FROM x 4 Neuro: CN 2-12 grossly intact, no new focal deficits Psych: calm - Constitutional Vitals: Temp Pulse Resp BP Pulse Ox 97.5 F L 102 H 27 H 200/93 100 07/26/18 04:00 07/26/18 08:45 07/26/18 08:25 07/26/18 08:45 07/26/18 08:26 Results - Labs CBC & Chem 7: 07/23/18 05:39 07/26/18 04:13 Labs: Laboratory Last Values WBC 7.8 K/mm3 (4.5-11.0) 07/23/18 05:39 RBC 3.04 M/mm3 (3.65-5.03) L 07/23/18 05:39 Hgb 8.3 gm/dl (10.1-14.3) L 07/23/18 05:39 Hct 25.6 % (30.3-42.9) L 07/23/18 05:39 MCV 84 fl (79-97) 07/23/18 05:39 MCH 27 pg (28-32) L 07/23/18 05:39 MCHC 32 % (30-34) 07/23/18 05:39 RDW 16.7 % (13.2-15.2) H 07/23/18 05:39 Plt Count 340 K/mm3 (140-440) 07/23/18 05:39 Lymph % (Auto) 13.1 % (13.4-35.0) L 07/23/18 05:39 [place] % (Auto) 8.1 % (0.0-7.3) H 07/23/18 05:39 Eos % (Auto) 1.1 % (0.0-4.3) 07/23/18 05:39 Baso % (Auto) 0.7 % (0.0-1.8) 07/23/18 05:39 Lymph # 1.0 K/mm3 (1.2-5.4) L 07/23/18 05:39 [place] # 0.6 K/mm3 (0.0-0.8) 07/23/18 05:39 Eos # 0.1 K/mm3 (0.0-0.4) 07/23/18 05:39 Baso # 0.1 K/mm3 (0.0-0.1) 07/23/18 05:39 Seg Neutrophils % 77.0 % (40.0-70.0) H 07/23/18 05:39 Seg Neutrophils # 6.0 K/mm3 (1.8-7.7) 07/23/18 05:39 PT 14.4 Sec. (12.2-14.9) 07/18/18 20:48 INR 1.08 (0.87-1.13) 07/18/18 20:48 APTT 23.2 Sec. (24.2-36.6) L 07/18/18 20:48 Sodium 140 mmol/L (137-145) 07/26/18 04:13 Potassium 4.1 mmol/L (3.6-5.0) 07/26/18 04:13 Chloride 102.6 mmol/L (98-107) 07/26/18 04:13 Carbon Dioxide 27 mmol/L (22-30) 07/26/18 04:13 Anion Gap 15 mmol/L 07/26/18 04:13 BUN 22 mg/dL (7-17) H 07/26/18 04:13 Creatinine 0.7 mg/dL (0.7-1.2) 07/26/18 04:13 Estimated GFR > 60 ml/min 07/26/18 04:13 BUN/Creatinine Ratio 31 % 07/26/18 04:13 Glucose 180 mg/dL (65-100) H 07/26/18 04:13 POC Glucose 156 (70-105) H 07/26/18 06:37 Lactic Acid 1.10 mmol/L (0.7-2.0) 07/19/18 17:04 Calcium 8.3 mg/dL (8.4-10.2) L 07/26/18 04:13 Phosphorus 3.50 mg/dL (2.5-4.5) D 07/26/18 04:13 Magnesium 2.20 mg/dL (1.7-2.3) 07/26/18 04:13 Total Bilirubin 0.20 mg/dL (0.1-1.2) 07/23/18 05:39 AST 20 units/L (5-40) 07/23/18 05:39 ALT 7 units/L (7-56) 07/23/18 05:39 Alkaline Phosphatase 56 units/L (35-129) 07/23/18 05:39 Total Creatine Kinase 48 units/L (30-135) 07/18/18 20:48 CK-MB (CK-2) < 1.0 ng/mL (0.0-4.0) 07/18/18 20:48 CK-MB (CK-2) Rel Index 2.0 (0-4) 07/18/18 20:48 Troponin T 0.025 ng/mL (0.00-0.029) 07/18/18 20:48 C-Reactive Protein 4.30 mg/dL (0.00-1.30) H 07/25/18 03:58 NT-Pro-B Natriuret Pep 462.4 pg/mL (0-900) 07/18/18 20:48 Total Protein 6.4 g/dL (6.3-8.2) 07/23/18 05:39 Albumin 2.8 g/dL (3.9-5) L 07/23/18 05:39 Albumin/Globulin Ratio 0.8 % 07/23/18 05:39 Urine Color Yellow (Yellow) 07/18/18 21:49 Urine Turbidity Clear (Clear) 07/18/18 21:49 Urine pH 5.0 (5.0-7.0) 07/18/18 21:49 Ur Specific [place] 1.019 (1.003-1.030) 07/18/18 21:49 Urine Protein <15 mg/dl mg/dL (Negative) 07/18/18 21:49 Urine Glucose (UA) Neg mg/dL (Negative) 07/18/18 21:49 Urine Ketones Neg mg/dL (Negative) 07/18/18 21:49 Urine Blood Neg (Negative) 07/18/18 21:49 Urine Nitrite Neg (Negative) 07/18/18 21:49 Urine Bilirubin Neg (Negative) 07/18/18 21:49 Urine Urobilinogen 4.0 mg/dL (<2.0) 07/18/18 21:49 Ur Leukocyte Esterase Neg (Negative) 07/18/18 21:49 Urine WBC (Auto) 2.0 /HPF (0.0-6.0) 07/18/18 21:49 Urine RBC (Auto) < 1.0 /HPF (0.0-6.0) 07/18/18 21:49 U Epithel Cells (Auto) 3.0 /HPF (0-13.0) 07/18/18 21:49 Urine Mucus Few /HPF 07/18/18 21:49 Nutrition/Malnutrition Assess - Dietary Evaluation Nutrition/Malnutrition Findings: Nutrition Notes Start: 07/22/18 14:00 Freq: Status: Active Protocol: Document 07/26/18 09:59 ER (Rec: 07/26/18 10:23 ER [email or web address]) Co-Sign 07/26/18 09:59 LP Nutrition Notes Initial or Follow up Reassessment Current Diagnoses Diabetes Sepsis Hypertension Heart Failure Other Pertinent Diagnosis Cecal diverticulitis with phlegmon vs. cecal tumor necrosis Current Diet PPN at 83.33ml/hr Labs/Tests Reviewed Medications Reviewed Height 5 ft 5 in Weight 101.7 kg [place] Body Weight (lbs) 125.0 BMI 37.3 Subjective/Other Information PPN day 4. PPN infusing via midline. Pt. stated she is feeling better. Percent of energy/protein needs met: 54%/100% Burn Absent Trauma Absent #1 Nutrition Diagnoses Altered GI function Diagnosis Progress(for reassessment Continues documentation) Is patient on ventilator? No Is Patient Ambulatory and/or Out of Bed No REE-([facility]-confined to bed) 1756.488 Kcal/Kg value to use for calculation 13 Approximate Energy Requirements Using 1322 kcal/Kg Calculation Used for Recommendations Kcal/kg Additional Notes Pro needs 1-1.2g/kg adjBW: 79- 95g/day Fluid needs 1ml/kcal Nutrition Intervention Change Diet Order: PPN Nutrition Support: Continue PPN at 83.33 ml/hr: 6% dextrose, 16 mEq Mg, MVI, MTE Kcal 775 Protein (gm) 90 Carbohydrates (gm) 122 Fat (gm) 0 Fluid (mL) 2,000 Fiber (gm) 0 Goal #1 PN to meet nutrient needs as best possible Anticipated Discharge Needs: Unable to identify at this time Follow-Up By: 07/27/18 Additional Comments Labs in AM: BMP, Mg, Phos Monitor K+
--- NOTE | 2018-07-26 12:38 | Fluoroscopy Report ---
BARIUM ENEMA History: Abdominal pain, sepsis, cecal inflammatory mass. Findings: Rose Grader film of the abdomen is unremarkable. 14 fluoroscopic images were saved during this exam. Approximately 1 L of thin barium was administered into the colon through a rectal tube. The images demonstrate an irregular circumferential mass in the cecum/ascending colon which is highly concerning for colon cancer. There are a few diverticula in the right hemicolon and numerous diverticula in the left hemicolon. No convincing findings of diverticulitis are appreciated. The ascending colon mass nearly occludes the lumen of the proximal colon with stenosis estimated at 90%. There is no obvious extravasation of oral contrast at the level of the mass. No additional suspicious colon lesions are identified. There is normal emptying of the colon on the postevacuation film. Impression: Ascending colon mass. See above. I favor a colon mass over an inflammatory process such as perforated diverticulitis with abscess.
--- NOTE | 2018-07-26 13:42 | Progress Note ---
Assessment and Plan Pt much more alert, comfortable, no compl Abd soft, non tender BE - appears to have apple core lesion in cecum r/o malignancy GI eval for colonoscopy & biopsy pt is a high surgical risk and will also be difficult procedure due to extensive surrounding inflammatory vs. malignant changes Selected Entries 07/26/18 07/26/18 07/26/18 04:00 07:00 08:45 Temperature 97.5 F L Pulse Rate 102 H Respiratory 20 Rate Blood Pressure 200/93 Objective Vital Signs - 12hr 07/26/18 07/26/18 07/26/18 01:45 02:01 02:15 Temperature Pulse Rate 85 86 85 Pulse Rate [ Anterior Bilateral] Pulse Rate [ From Monitor] Respiratory 27 H 33 H 15 Rate Respiratory Rate [Anterior Bilateral] Blood Pressure 181/85 197/89 197/89 O2 Sat by Pulse 100 99 100 Oximetry 07/26/18 07/26/18 07/26/18 02:21 02:31 02:45 Temperature Pulse Rate 86 85 94 H Pulse Rate [ Anterior Bilateral] Pulse Rate [ From Monitor] Respiratory 24 23 Rate Respiratory Rate [Anterior Bilateral] Blood Pressure 193/77 193/77 193/77 O2 Sat by Pulse 100 100 Oximetry 07/26/18 07/26/18 07/26/18 03:00 03:15 03:31 Temperature Pulse Rate 91 H 100 H 100 H Pulse Rate [ Anterior Bilateral] Pulse Rate [ From Monitor] Respiratory 28 H 30 H 24 Rate Respiratory Rate [Anterior Bilateral] Blood Pressure 193/77 167/94 167/94 O2 Sat by Pulse 100 99 100 Oximetry 07/26/18 07/26/18 07/26/18 03:45 04:00 04:15 Temperature 97.5 F L Pulse Rate 102 H 95 H 106 H Pulse Rate [ Anterior Bilateral] Pulse Rate [ 96 H From Monitor] Respiratory 28 H 23 14 Rate Respiratory Rate [Anterior Bilateral] Blood Pressure 167/94 171/72 167/94 O2 Sat by Pulse 99 99 99 Oximetry 07/26/18 07/26/18 07/26/18 04:31 04:45 05:00 Temperature Pulse Rate 103 H 100 H 103 H Pulse Rate [ Anterior Bilateral] Pulse Rate [ From Monitor] Respiratory 20 31 H 20 Rate Respiratory Rate [Anterior Bilateral] Blood Pressure 167/94 167/94 177/84 O2 Sat by Pulse 100 99 98 Oximetry 07/26/18 07/26/18 07/26/18 05:15 05:31 05:51 Temperature Pulse Rate 99 H 101 H 108 H Pulse Rate [ Anterior Bilateral] Pulse Rate [ From Monitor] Respiratory 30 H 26 H 17 Rate Respiratory Rate [Anterior Bilateral] Blood Pressure 177/84 177/84 177/84 O2 Sat by Pulse 100 100 100 Oximetry 07/26/18 07/26/18 07/26/18 06:01 06:15 06:29 Temperature Pulse Rate 103 H 97 H 95 H Pulse Rate [ Anterior Bilateral] Pulse Rate [ From Monitor] Respiratory 15 27 H Rate Respiratory Rate [Anterior Bilateral] Blood Pressure 174/99 174/99 174/99 O2 Sat by Pulse 100 100 Oximetry 07/26/18 07/26/18 07/26/18 06:31 06:45 07:00 Temperature Pulse Rate 91 H 95 H 98 H Pulse Rate [ Anterior Bilateral] Pulse Rate [ From Monitor] Respiratory 25 H 29 H 20 Rate Respiratory Rate [Anterior Bilateral] Blood Pressure 174/99 174/99 180/91 O2 Sat by Pulse 100 100 99 Oximetry 07/26/18 07/26/18 07/26/18 07:15 07:31 08:00 Temperature Pulse Rate 97 H 99 H Pulse Rate [ 97 H Anterior Bilateral] Pulse Rate [ From Monitor] Respiratory 28 H 20 Rate Respiratory 28 H Rate [Anterior Bilateral] Blood Pressure 180/91 180/91 O2 Sat by Pulse 100 100 Oximetry 07/26/18 07/26/18 07/26/18 08:25 08:26 08:45 Temperature Pulse Rate 102 H Pulse Rate [ 97 H Anterior Bilateral] Pulse Rate [ From Monitor] Respiratory Rate Respiratory 27 H Rate [Anterior Bilateral] Blood Pressure 200/93 O2 Sat by Pulse 100 Oximetry - Labs 07/23/18 05:39 07/26/18 04:13 Diabetes panel 07/26/18 Range/Units 04:13 Sodium 140 (137-145) mmol/L Potassium 4.1 (3.6-5.0) mmol/L Chloride 102.6 (98-107) mmol/L Carbon Dioxide 27 (22-30) mmol/L BUN 22 H (7-17) mg/dL Creatinine 0.7 (0.7-1.2) mg/dL Glucose 180 H (65-100) mg/dL Calcium 8.3 L (8.4-10.2) mg/dL Calcium panel 07/26/18 Range/Units 04:13 Calcium 8.3 L (8.4-10.2) mg/dL Phosphorus 3.50 D (2.5-4.5) mg/dL Pituitary panel 07/26/18 Range/Units 04:13 Sodium 140 (137-145) mmol/L Potassium 4.1 (3.6-5.0) mmol/L Chloride 102.6 (98-107) mmol/L Carbon Dioxide 27 (22-30) mmol/L BUN 22 H (7-17) mg/dL Creatinine 0.7 (0.7-1.2) mg/dL Glucose 180 H (65-100) mg/dL Calcium 8.3 L (8.4-10.2) mg/dL Adrenal panel 07/26/18 Range/Units 04:13 Sodium 140 (137-145) mmol/L Potassium 4.1 (3.6-5.0) mmol/L Chloride 102.6 (98-107) mmol/L Carbon Dioxide 27 (22-30) mmol/L BUN 22 H (7-17) mg/dL Creatinine 0.7 (0.7-1.2) mg/dL Glucose 180 H (65-100) mg/dL Calcium 8.3 L (8.4-10.2) mg/dL
[2018-07-26] MEDS ORDERED: LASIX IV ONE (14:00)
--- NOTE | 2018-07-26 17:14 | XRay Report ---
FINAL REPORT EXAM: XR CHEST 1V AP HISTORY: R arm PICC placement TECHNIQUE: Frontal portable examination of the chest PRIORS: 07/18/2018 FINDINGS: Atherosclerotic change in the thoracic aorta. Degenerative change in the thoracic spine. There is no visible pulmonary consolidation, pleural effusion, or pneumothorax. Cardiac silhouette size is slightly enlarged without vascular congestion. A new right venous catheter is in place with distal tip near the cavoatrial junction region. IMPRESSION: No acute cardiopulmonary disease in the visualized chest Slight cardiomegaly without vascular congestion A new right venous catheter is in place with distal tip near the cavoatrial junction region.
[2018-07-26] MEDS: MAXIPIME/NS 2 GM/100 ML 2 GM/100 ML BAG IV SCH ×2 (17:53→22:38)
[2018-07-26] MEDS: HEPARIN SUB-Q SCH ×2 (17:54→22:37)
[2018-07-26] MEDS: PROTONIX PO SCH (17:54)
[2018-07-26] MEDS ORDERED: LASIX ONE (18:00)
[2018-07-26] MEDS ORDERED: TPN ADULT 1,999.92 ML IV SCH (20:00)
[2018-07-26] MEDS: NORMODYNE IV PRN (20:49)
[2018-07-27] MEDS: FLAGYL 500 MG/100 ML 500 MG/100 ML BAG IV SCH ×3 (01:16→18:37)
[2018-07-27] MEDS: VASOTEC IV SCH ×4 (01:17→18:38)
[2018-07-27] MEDS: HumaLOG SUB-Q SCH ×4 (02:57→18:36)
[2018-07-27 03:37] LABS: BUN/Creatinine Ratio 34; Blood Urea Nitrogen 24 mg/dL (7-17); Calcium 8.4 mg/dL (8.4-10.2); Hemolysis Index 0
[2018-07-27] MEDS: APRESOLINE IV PRN ×3 (03:53→21:47)
[2018-07-27] MEDS: MAXIPIME/NS 2 GM/100 ML 2 GM/100 ML BAG IV SCH ×2 (09:10→21:49)
[2018-07-27] MEDS: HEPARIN SUB-Q SCH ×2 (09:11→21:43)
[2018-07-27] MEDS: DUONEB *Not for PRN Use IH SCH ×3 (09:54→20:34)
[2018-07-27] MEDS: PROTONIX PO SCH (10:43)
--- NOTE | 2018-07-27 11:38 | Progress Note ---
Assessment and Plan Assessment and plan: Patient is 87 yo woman with a history of DM, CHF and hypertension who presents to [facility] via EMS with AMS, falling at home, feeling hot, blood glucose was in the 40s and she was given oral glucose by EMS prior to arrival. Associated with falling is diaphoresis, lose of appetite, n/v, sob x 1 day. This is patient 3rd fall at home. She did complain of right upper quadrant, sharp intermittent severe, aggravated by certain movement, relieved by different positions. * CTAP with IV contrast IMPRESSION: Extensive inflammatory changes involving the cecum and proximal ascending colon extending posteriorly with pericolonic stranding. Diagnostic consideration would include appendicitis with p erforation presuming the patient still has her appendix. The other possibility is severe diverticulitis with probable perforation. Extensive colonic diverticulosis. Uncomplicated cysts in both kidneys. Hysterectomy. Multilevel disc degeneration in the lumbar spine. Incidental note is made of a crescent- shaped area of mural thrombus at the thoracoabdominal junction involving the aorta. A remote dissection cannot entirely be excluded. * CTA chest pains IMPRESSION: 1. No evidence of pulmonary embolism. 2. Mild cardiomegaly 3. Lingular subsegmental atelectasis versus parenchymal scar 4. 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 No evidence of acute infarct or intracra nial hemorrhage. 2. White matter lucency consistent with chronic microvascular ischemic disease. 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, suspect with perforation versus necrotic Colon Cancer vs Cecal diverticulitis perforation versus intra-abdominal phlegmon/abscess vs other : Keep NPO, Starting TPN, GS and ID following Hypertensive urgency, Bp still not controlled: catapress patch, iv enalapril, iv hydralazine and iv labetalol, Recurrent falls with episodes of hypoglycemia: hold DM medication(s), treated with dextrose, following accuchecks Sepsis with suspected perforated bowel from appendix vs diverticuli: Repeat imaging concerning more for tumor necrosis syndrome.Continue abx per ID Cefepime and flagyl Acute metabolic encephalopathy: treat the hypoglycemia and sepsis 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 Heart size is stable at the upper limits of normal. The visualized lung bases are adequately aerated. The masslike lesion in the ascending colon appears stable in size and contour. There is no evidence for obstruction or leakage of contrast. There are scattered diverticula in the proximal colon. Mild inflammatory changes adjacent to this masslike lesion have decreased by 20% since the previous exam. It is unclear if this represents a colon mass or is associated with diverticulitis. I favor a colon mass. The liver, biliary system, pancreas, spleen, kidneys and adrenal glands remain unremarkable. The pelvic viscera are within normal limits. H ysterectomy changes are noted. IMPRESSION: Inflammatory changes adjacent to the right colon mass or diverticulitis has improved slightly. Overall, no overwhelming change. No new acute process. New small layering pleural effusions. doing better today, iv lasix did help, going for barium enema today. added iv labetalol prn for better blood pressure control==>next step would be IV cardene drip or iv nitroglycerin drip History Interval history: Patient was seen and examined. Follow-up on current diagnosis of bowel perforation. Overnight uneventful. Patient denies any chest pain, shortness breath, nausea/vomiting or severe headaches. Imaging, nursing note, chart, labs and old chart reviewed. Discussed with patient. Hospitalist Physical - Physical exam Narrative exam: Gen: WDWN, NAD, Awake, Alert, Orientated x 1 HEENT: NCAT, EOMI, PERRL, OP Clear Neck: supple, no adenopathy, no thyromegaly, no JVD CVS/Heart: RRR, normal S1S2, pulses present bilaterally Chest/Lungs: diminished bs bilateral, Symmetrical chest expansion, good air entry bilaterally GI/Abdomen: soft diffusely tender, good bowel sounds, no guarding or rebound /Bladder: no suprapubic tenderness, no CVA or paraspinal tenderness Extermity/Skin: no c/c/e, no obvious rash MSK: FROM x 4 Neuro: CN 2-12 grossly intact, no new focal deficits Psych: calm - Constitutional Vitals: Temp Pulse Resp BP Pulse Ox 98.4 F 106 H 20 201/93 100 07/27/18 08:00 07/27/18 11:08 07/27/18 10:16 07/27/18 11:08 07/27/18 10:16 Results - Labs CBC & Chem 7: 07/23/18 05:39 07/27/18 02:44 Labs: Laboratory Last Values WBC 7.8 K/mm3 (4.5-11.0) 07/23/18 05:39 RBC 3.04 M/mm3 (3.65-5.03) L 07/23/18 05:39 Hgb 8.3 gm/dl (10.1-14.3) L 07/23/18 05:39 Hct 25.6 % (30.3-42.9) L 07/23/18 05:39 MCV 84 fl (79-97) 07/23/18 05:39 MCH 27 pg (28-32) L 07/23/18 05:39 MCHC 32 % (30-34) 07/23/18 05:39 RDW 16.7 % (13.2-15.2) H 07/23/18 05:39 Plt Count 340 K/mm3 (140-440) 07/23/18 05:39 Lymph % (Auto) 13.1 % (13.4-35.0) L 07/23/18 05:39 [place] % (Auto) 8.1 % (0.0-7.3) H 07/23/18 05:39 Eos % (Auto) 1.1 % (0.0-4.3) 07/23/18 05:39 Baso % (Auto) 0.7 % (0.0-1.8) 07/23/18 05:39 Lymph # 1.0 K/mm3 (1.2-5.4) L 07/23/18 05:39 [place] # 0.6 K/mm3 (0.0-0.8) 07/23/18 05:39 Eos # 0.1 K/mm3 (0.0-0.4) 07/23/18 05:39 Baso # 0.1 K/mm3 (0.0-0.1) 07/23/18 05:39 Seg Neutrophils % 77.0 % (40.0-70.0) H 07/23/18 05:39 Seg Neutrophils # 6.0 K/mm3 (1.8-7.7) 07/23/18 05:39 PT 14.4 Sec. (12.2-14.9) 07/18/18 20:48 INR 1.08 (0.87-1.13) 07/18/18 20:48 APTT 23.2 Sec. (24.2-36.6) L 07/18/18 20:48 Sodium 142 mmol/L (137-145) 07/27/18 02:44 Potassium 4.1 mmol/L (3.6-5.0) 07/27/18 02:44 Chloride 103.8 mmol/L (98-107) 07/27/18 02:44 Carbon Dioxide 30 mmol/L (22-30) 07/27/18 02:44 Anion Gap 12 mmol/L 07/27/18 02:44 BUN 24 mg/dL (7-17) H 07/27/18 02:44 Creatinine 0.7 mg/dL (0.7-1.2) 07/27/18 02:44 Estimated GFR > 60 ml/min 07/27/18 02:44 BUN/Creatinine Ratio 34 % 07/27/18 02:44 Glucose 195 mg/dL (65-100) H 07/27/18 02:44 POC Glucose 177 (70-105) H 07/27/18 10:45 Lactic Acid 1.10 mmol/L (0.7-2.0) 07/19/18 17:04 Calcium 8.4 mg/dL (8.4-10.2) 07/27/18 02:44 Phosphorus 3.10 mg/dL (2.5-4.5) 07/27/18 02:44 Magnesium 2.10 mg/dL (1.7-2.3) 07/27/18 02:44 Total Bilirubin 0.20 mg/dL (0.1-1.2) 07/23/18 05:39 AST 20 units/L (5-40) 07/23/18 05:39 ALT 7 units/L (7-56) 07/23/18 05:39 Alkaline Phosphatase 56 units/L (35-129) 07/23/18 05:39 Total Creatine Kinase 48 units/L (30-135) 07/18/18 20:48 CK-MB (CK-2) < 1.0 ng/mL (0.0-4.0) 07/18/18 20:48 CK-MB (CK-2) Rel Index 2.0 (0-4) 07/18/18 20:48 Troponin T 0.025 ng/mL (0.00-0.029) 07/18/18 20:48 C-Reactive Protein 4.30 mg/dL (0.00-1.30) H 07/25/18 03:58 NT-Pro-B Natriuret Pep 462.4 pg/mL (0-900) 07/18/18 20:48 Total Protein 6.4 g/dL (6.3-8.2) 07/23/18 05:39 Albumin 2.8 g/dL (3.9-5) L 07/23/18 05:39 Albumin/Globulin Ratio 0.8 % 07/23/18 05:39 Carcinoembryonic Ag See scanned result 07/22/18 13:47 Urine Color Yellow (Yellow) 07/18/18 21:49 Urine Turbidity Clear (Clear) 07/18/18 21:49 Urine pH 5.0 (5.0-7.0) 07/18/18 21:49 Ur Specific [place] 1.019 (1.003-1.030) 07/18/18 21:49 Urine Protein <15 mg/dl mg/dL (Negative) 07/18/18 21:49 Urine Glucose (UA) Neg mg/dL (Negative) 07/18/18 21:49 Urine Ketones Neg mg/dL (Negative) 07/18/18 21:49 Urine Blood Neg (Negative) 07/18/18 21:49 Urine Nitrite Neg (Negative) 07/18/18 21:49 Urine Bilirubin Neg (Negative) 07/18/18 21:49 Urine Urobilinogen 4.0 mg/dL (<2.0) 07/18/18 21:49 Ur Leukocyte Esterase Neg (Negative) 07/18/18 21:49 Urine WBC (Auto) 2.0 /HPF (0.0-6.0) 07/18/18 21:49 Urine RBC (Auto) < 1.0 /HPF (0.0-6.0) 07/18/18 21:49 U Epithel Cells (Auto) 3.0 /HPF (0-13.0) 07/18/18 21:49 Urine Mucus Few /HPF 07/18/18 21:49 Nutrition/Malnutrition Assess - Dietary Evaluation Nutrition/Malnutrition Findings: Nutrition Notes Start: 07/22/18 14:00 Freq: Status: Active Protocol: Document 07/27/18 09:46 ER (Rec: 07/27/18 10:02 ER [id number]) Co-Sign 07/27/18 09:46 LP Nutrition Notes Initial or Follow up Reassessment Current Diagnosis Diabetes Sepsis Hypertension Heart Failure Other Pertinent Diagnosis 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 PPN infusing via midline. Percent of energy/protein needs met: 60%/100% Burn Absent Trauma Absent #1 Nutrition Diagnosis Altered GI function Diagnosis Progress(for reassessment Continues documentation) Is patient on ventilator? No Is Patient Ambulatory and/or Out of Bed No REE-([place]-confined to bed) 1739.700 Kcal/Kg value to use for calculation 13 Approximate Energy Requirements Using 1304 kcal/Kg Calculation Used for Recommendations Kcal/kg Additional Notes Pro needs 1-1.2g/kg adjBW: 79- 95g/day Fluid needs 1ml/kcal Nutrition Intervention Change Diet Order: PPN Nutrition Support: Continue PPN at 83.33 ml/hr: Osmolarity: 896, 6.3% dextrose, 150 mEq Na, MVI , lipids Kcal 1,285 Protein (gm) 90 Carbohydrates (gm) 125 Fat (gm) 50 Fluid (mL) 2,000 Fiber (gm) 0 Goal #1 PN to meet nutrient needs as best possible Anticipated Discharge Needs: Unable to identify at this time Follow-Up By: 07/28/18 Additional Comments Labs in AM: BMP, Mg, Phos
--- NOTE | 2018-07-27 13:37 | Progress Note ---
Assessment and Plan Pt status quo Abd soft awaiting GI eval for colonoscopy continue present care Objective Vital Signs - 12hr 07/27/18 07/27/18 07/27/18 01:45 02:00 02:15 Temperature Pulse Rate 88 90 91 H Pulse Rate [ Anterior Bilateral] Pulse Rate [ From Monitor] Respiratory 25 H 30 H 29 H Rate Respiratory Rate [Anterior Bilateral] Blood Pressure 189/84 182/75 192/82 O2 Sat by Pulse 98 98 98 Oximetry 07/27/18 07/27/18 07/27/18 02:31 02:45 03:00 Temperature Pulse Rate 91 H 84 91 H Pulse Rate [ Anterior Bilateral] Pulse Rate [ From Monitor] Respiratory 29 H 26 H 28 H Rate Respiratory Rate [Anterior Bilateral] Blood Pressure 192/82 182/75 179/77 O2 Sat by Pulse 97 98 99 Oximetry 07/27/18 07/27/18 07/27/18 03:15 03:31 03:45 Temperature Pulse Rate 87 74 79 Pulse Rate [ Anterior Bilateral] Pulse Rate [ From Monitor] Respiratory 26 H 25 H 26 H Rate Respiratory Rate [Anterior Bilateral] Blood Pressure 179/77 179/77 179/77 O2 Sat by Pulse 98 99 99 Oximetry 07/27/18 07/27/18 07/27/18 03:53 04:00 04:15 Temperature 99.2 F Pulse Rate 79 88 88 Pulse Rate [ Anterior Bilateral] Pulse Rate [ 80 From Monitor] Respiratory 29 H 26 H Rate Respiratory Rate [Anterior Bilateral] Blood Pressure 179/77 192/77 192/77 O2 Sat by Pulse 99 99 Oximetry 07/27/18 07/27/18 07/27/18 04:31 04:45 05:00 Temperature Pulse Rate 89 95 H 93 H Pulse Rate [ Anterior Bilateral] Pulse Rate [ From Monitor] Respiratory 24 29 H 29 H Rate Respiratory Rate [Anterior Bilateral] Blood Pressure 192/77 192/77 181/75 O2 Sat by Pulse 98 99 98 Oximetry 07/27/18 07/27/18 07/27/18 05:15 05:31 05:45 Temperature Pulse Rate 93 H 88 90 Pulse Rate [ Anterior Bilateral] Pulse Rate [ From Monitor] Respiratory 30 H 27 H 23 Rate Respiratory Rate [Anterior Bilateral] Blood Pressure 181/75 181/75 181/75 O2 Sat by Pulse 98 97 99 Oximetry 07/27/18 07/27/18 07/27/18 06:00 06:15 06:27 Temperature Pulse Rate 81 83 79 Pulse Rate [ Anterior Bilateral] Pulse Rate [ From Monitor] Respiratory 23 24 Rate Respiratory Rate [Anterior Bilateral] Blood Pressure 159/69 159/69 159/69 O2 Sat by Pulse 99 99 Oximetry 07/27/18 07/27/18 07/27/18 06:31 06:45 07:00 Temperature Pulse Rate 79 78 80 Pulse Rate [ Anterior Bilateral] Pulse Rate [ From Monitor] Respiratory 21 22 19 Rate Respiratory Rate [Anterior Bilateral] Blood Pressure 159/69 159/69 167/75 O2 Sat by Pulse 99 99 99 Oximetry 07/27/18 07/27/18 07/27/18 07:15 07:30 07:46 Temperature Pulse Rate 88 94 H 100 H Pulse Rate [ Anterior Bilateral] Pulse Rate [ From Monitor] Respiratory 30 H 18 30 H Rate Respiratory Rate [Anterior Bilateral] Blood Pressure 167/75 167/75 O2 Sat by Pulse 99 98 92 Oximetry 07/27/18 07/27/18 07/27/18 08:00 08:16 08:30 Temperature 98.4 F Pulse Rate 95 H 94 H 92 H Pulse Rate [ Anterior Bilateral] Pulse Rate [ 76 From Monitor] Respiratory 24 25 H 23 Rate Respiratory Rate [Anterior Bilateral] Blood Pressure 167/75 201/86 201/86 O2 Sat by Pulse 100 Oximetry 07/27/18 07/27/18 07/27/18 08:46 09:00 09:16 Temperature Pulse Rate 92 H 87 85 Pulse Rate [ Anterior Bilateral] Pulse Rate [ From Monitor] Respiratory 25 H 24 26 H Rate Respiratory Rate [Anterior Bilateral] Blood Pressure 201/86 201/86 180/91 O2 Sat by Pulse 91 Oximetry 07/27/18 07/27/18 07/27/18 09:30 09:46 09:54 Temperature Pulse Rate 89 91 H Pulse Rate [ 96 H Anterior Bilateral] Pulse Rate [ From Monitor] Respiratory 25 H 23 Rate Respiratory 28 H Rate [Anterior Bilateral] Blood Pressure 180/91 180/91 O2 Sat by Pulse 97 98 Oximetry 07/27/18 07/27/18 07/27/18 09:55 10:00 10:01 Temperature Pulse Rate 95 H Pulse Rate [ 98 H Anterior Bilateral] Pulse Rate [ From Monitor] Respiratory 30 H Rate Respiratory 26 H Rate [Anterior Bilateral] Blood Pressure 209/94 O2 Sat by Pulse 100 100 Oximetry 07/27/18 07/27/18 07/27/18 10:16 10:43 11:08 Temperature Pulse Rate 99 H 101 H 106 H Pulse Rate [ Anterior Bilateral] Pulse Rate [ From Monitor] Respiratory 20 Rate Respiratory Rate [Anterior Bilateral] Blood Pressure 180/91 209/94 201/93 O2 Sat by Pulse 100 Oximetry - Labs 07/23/18 05:39 07/27/18 02:44 Diabetes panel 07/27/18 Range/Units 02:44 Sodium 142 (137-145) mmol/L Potassium 4.1 (3.6-5.0) mmol/L Chloride 103.8 (98-107) mmol/L Carbon Dioxide 30 (22-30) mmol/L BUN 24 H (7-17) mg/dL Creatinine 0.7 (0.7-1.2) mg/dL Glucose 195 H (65-100) mg/dL Calcium 8.4 (8.4-10.2) mg/dL Calcium panel 07/27/18 Range/Units 02:44 Calcium 8.4 (8.4-10.2) mg/dL Phosphorus 3.10 (2.5-4.5) mg/dL Pituitary panel 07/27/18 Range/Units 02:44 Sodium 142 (137-145) mmol/L Potassium 4.1 (3.6-5.0) mmol/L Chloride 103.8 (98-107) mmol/L Carbon Dioxide 30 (22-30) mmol/L BUN 24 H (7-17) mg/dL Creatinine 0.7 (0.7-1.2) mg/dL Glucose 195 H (65-100) mg/dL Calcium 8.4 (8.4-10.2) mg/dL Adrenal panel 07/27/18 Range/Units 02:44 Sodium 142 (137-145) mmol/L Potassium 4.1 (3.6-5.0) mmol/L Chloride 103.8 (98-107) mmol/L Carbon Dioxide 30 (22-30) mmol/L BUN 24 H (7-17) mg/dL Creatinine 0.7 (0.7-1.2) mg/dL Glucose 195 H (65-100) mg/dL Calcium 8.4 (8.4-10.2) mg/dL
--- NOTE | 2018-07-27 15:11 | Progress Note ---
Assessment and Plan Cultures: 07/19/2018 blood culture: no growth 07/22/2018 Blood culture: no growth Assessment: 87-year-old female with diabetes mellitus, congestive heart failure, HTN admitted with: 1) Sepsis: resolved; likely from intra-abdominal source 2) Intra-abdominal phlegmon/abscess with ?perforation versus necrotic tumor: slight better, barium enema presumed mass - repeat CT 07/25 showed the masslike lesion in the ascending colon appears stable in size and contour. There is no evidence for obstruction or leakage of contrast. There are scattered diverticula in the proximal colon. Mild inflammatory changes adjacent to this masslike lesion have decreased by 20% since the previous exam. It is unclear if this represents a colon mass or is associated with diverticulitis. - CRP = 4.3 - barium enema showed ascending colon mass. See above. I favor a colon mass over an inflammatory process such as perforated diverticulitis with abscess. 3) Acute encephalopathy: metabolic- resolved 4) DM-2 - stable 5) ? wheezing/ SOB: better; likely volume overload, CXR 07/25 +pulmonary edema Recs: - continue Cefepime and Flagyl D9 - Surgery ordered colonoscopy - General Surgery following Will follow. Robyn Kevin MD [facility] C: [phone] O: [phone] F: [phone] Subjective Date of service: 07/27/18 Principal diagnosis: abd pain, abnormal CT Interval history: Patient reports feeling better still SOB. No fever for 4 days. No need for pre ssors. Denies abdominal pain. Objective - Exam Narrative Exam: Constitutional: Alert, cooperative in NAD NC O2 Head, Ears, Nose: Normocephalic, atraumatic. External ears, nose normal Eyes: Conjunctivae/corneas clear. No icterus. No ptosis. Neck: Supple, no meningeal signs Cardiovascular: tachycardic Respiratory: Good air entry, clear to auscultation bilaterally GI: soft, no tenderness; bowel sounds +. No rebound tenderness Musculoskeletal: No pedal edema, no cyanosis. Skin: No rash or abscess Hem/Lymphatic: No palpable cervical or supraclavicular nodes. No lymphangitis Psych: Mood ok. Affect normal Neurological: Awake, alert, oriented. No gross abnormality - Constitutional Vitals: Vital Signs Temp Pulse Resp BP Pulse Ox 98.4 F 106 H 20 201/93 100 07/27/18 08:00 07/27/18 11:08 07/27/18 10:16 07/27/18 11:08 07/27/18 10:16 Temperature -Last 24 Hours Temperature 98.4 F Temperature 99.2 F Temperature 98.2 F Temperature 98.1 F Temperature 98.2 F - Labs CBC & Chem 7: 07/23/18 05:39 07/27/18 02:44 Labs: Abnormal lab results 07/26/18 07/27/18 07/27/18 Range/Units 22:45 02:44 02:51 BUN 24 H (7-17) mg/dL Glucose 195 H (65-100) mg/dL POC Glucose 237 H 166 H (70-105) 07/27/18 07/27/18 Range/Units 06:27 10:45 BUN (7-17) mg/dL Glucose (65-100) mg/dL POC Glucose 212 H 177 H (70-105)
--- NOTE | 2018-07-27 16:18 | Gastroenterology Progress Note ---
Addendum entered and electronically signed by SHARA JAY MD 07/27/18 22:53: I have personally interviewed and examined the patient. I agree with the above A/P. Original Note: Assessment and Plan 1.colon mass 2.sepsis-resolved -abd CT 07/19- showed possible diverticulitis, appendicitis, vs microperforation (currently on Cefepime and Flagyl D9) -repeat CT 07/25 showed right colon mass with adjacent inflammatory changes with slight improvement -barium enema 07/26- showed most likely ascending colon mass over inflammatory process -surgery and ID following -will schedule for colonoscopy tomorrow -colon prep this afternoon then NPO after MN -hold am dose of heparin 07/28 -INR and CEA level in am -continue supportive care -will follow Subjective Date of service: 07/27/18 Principal diagnosis: abd pain, abnormal CT Interval history: GI has been re-consulted on this patient for a colon mass with request for a colonoscopy with bx per surgery. This afternoon patient was resting in bed w/o acute distress and family at bedside. Denies abd pain or N/V. Colonoscopy discussed with pt/family for further evaluation of colon mass seen on CT and BE to r/o malignancy to include risks vs benefits. Pt/family agreeable/wishes to proceed with procedure. Objective - Constitutional Vitals: Temp Pulse Resp BP Pulse Ox 98.4 F 107 H 30 H 197/90 99 07/27/18 08:00 07/27/18 15:00 07/27/18 15:00 07/27/18 15:00 07/27/18 15:00 General appearance: no acute distress - Respiratory Respiratory: bilateral: diminished (occasional wheeze) - Cardiovascular Rhythm: other (tachycardia) - Gastrointestinal General gastrointestinal: Present: soft, non-tender, non-distended, normal bowel sounds - Labs CBC & Chem 7: 07/23/18 05:39 07/27/18 02:44 Labs: Laboratory Results - last 24 hr 07/22/18 07/26/18 07/27/18 13:47 22:45 02:44 Sodium 142 Potassium 4.1 Chloride 103.8 Carbon Dioxide 30 Anion Gap 12 BUN 24 H Creatinine 0.7 Estimated GFR > 60 BUN/Creatinine Ratio 34 Glucose 195 H POC Glucose 237 H Calcium 8.4 Phosphorus 3.10 Magnesium 2.10 Carcinoembryonic Ag See scanned result 07/27/18 07/27/18 07/27/18 02:51 06:27 10:45 Sodium Potassium Chloride Carbon Dioxide Anion Gap BUN Creatinine Estimated GFR BUN/Creatinine Ratio Glucose POC Glucose 166 H 212 H 177 H Calcium Phosphorus Magnesium Carcinoembryonic Ag
[2018-07-27] MEDS ORDERED: GOLYTELY PO ONE (17:00)
[2018-07-27] MEDS ORDERED: INTRALIPID 20% 250 ML IV SCH (20:00)
[2018-07-27] MEDS ORDERED: TPN ADULT 1,999.92 ML IV SCH (20:00)
[2018-07-27] MEDS: NORMODYNE IV PRN (23:57)
[2018-07-28] MEDS: MORPHINE IV PRN ×3 (00:11→23:22)
[2018-07-28] MEDS: VASOTEC IV SCH ×5 (01:19→23:24)
[2018-07-28] MEDS: FLAGYL 500 MG/100 ML 500 MG/100 ML BAG IV SCH ×3 (05:11→20:20)
[2018-07-28] MEDS: HumaLOG SUB-Q SCH ×5 (05:29→23:49)
[2018-07-28 06:40] LABS: INR 1.09 (0.87-1.13)
[2018-07-28 06:55] LABS: BUN/Creatinine Ratio 42; Blood Urea Nitrogen 25 mg/dL (7-17); Calcium 8.8 mg/dL (8.4-10.2); Hemolysis Index 5
[2018-07-28] MEDS: APRESOLINE IV PRN (08:07)
[2018-07-28] MEDS: DUONEB *Not for PRN Use IH SCH ×3 (08:56→20:16)
[2018-07-28] MEDS: NORMODYNE IV PRN ×3 (09:03→18:52)
[2018-07-28] MEDS: HEPARIN SUB-Q SCH ×2 (09:10→23:24)
[2018-07-28] MEDS: MAXIPIME/NS 2 GM/100 ML 2 GM/100 ML BAG IV SCH ×2 (09:10→23:24)
[2018-07-28] MEDS: PROTONIX PO SCH (10:08)
--- NOTE | 2018-07-28 11:05 | Progress Note ---
Assessment and Plan Cultures: 07/19/2018 blood culture: no growth 07/22/2018 Blood culture: no growth Assessment: 87-year-old female with diabetes mellitus, congestive heart failure, HTN admitted with: 1) Sepsis: resolved; likely from intra-abdominal source 2) Intra-abdominal phlegmon/abscess with ?perforation versus necrotic tumor: slight better, barium enema with presumed mass - repeat CT 07/25 showed the masslike lesion in the ascending colon appears stable in size and contour. There is no evidence for obstruction or leakage of contrast. There are scattered diverticula in the proximal colon. Mild inflammatory changes adjacent to this masslike lesion have decreased by 20% since the previous exam. It is unclear if this represents a colon mass or is associated with diverticulitis. - CRP = 4.3 - barium enema showed ascending colon mass, favor a colon mass over an inflammatory process such as perforated diverticulitis with abscess. 3) Acute encephalopathy: metabolic- resolved 4) DM-2 - stable 5) ? wheezing/ SOB: better; likely volume overload, CXR 07/25 +pulmonary edema Recs: - continue Cefepime and Flagyl D10 - scheduled for colonoscopy tomorrow - will await for colonoscopy to determine duration IV abx - check CEA level Dr Lopez will be covering tomorrow Robyn Kevin MD [facility] C: [phone] O: [phone] F: [phone] Subjective Date of service: 07/28/18 Principal diagnosis: abd pain, abnormal CT Interval history: Patient reports feeling better. No fever. Denies abdominal pain. Objective - Exam Narrative Exam: Constitutional: Alert, cooperative in NAD [place] O2 Head, Ears, Nose: Normocephalic, atraumatic. External ears, nose normal Eyes: Conjunctivae/corneas clear. No icterus. No ptosis. Neck: Supple, no meningeal signs Cardiovascular: tachycardic Respiratory: scattered rhonchi GI: soft, no tenderness; bowel sounds +. No rebound tenderness Musculoskeletal: No pedal edema, no cyanosis. Skin: No rash or abscess Hem/Lymphatic: No palpable cervical or supraclavicular nodes. No lymphangitis Psych: Mood ok. Affect normal Neurological: Awake, alert, oriented. No gross abnormality R PICC - Constitutional Vitals: Vital Signs Temp Pulse Resp BP Pulse Ox 97.8 F 106 H 21 209/90 99 07/28/18 00:00 07/28/18 09:09 07/28/18 09:09 07/28/18 09:03 07/28/18 08:58 Temperature -Last 24 Hours Temperature 97.8 F Temperature 98.6 F Temperature 98.4 F Temperature 98.6 F - Labs CBC & Chem 7: 07/23/18 05:39 07/28/18 05:27 Labs: Abnormal lab results 07/27/18 07/28/18 07/28/18 Range/Units 16:14 00:12 05:06 BUN (7-17) mg/dL Creatinine (0.7-1.2) mg/dL Glucose (65-100) mg/dL POC Glucose 225 H 220 H 214 H (70-105) 07/28/18 07/28/18 Range/Units 05:27 08:09 BUN 25 H (7-17) mg/dL Creatinine 0.6 L (0.7-1.2) mg/dL Glucose 213 H (65-100) mg/dL POC Glucose 228 H (70-105)
[2018-07-28] MEDS ORDERED: NACL 0.9% 500 ML 500 ML IV ONE (11:18)
--- NOTE | 2018-07-28 11:48 | Progress Note ---
Assessment and Plan Pt status quo. for colonoscopy today Abd soft low h/h high pulse will schedule for expl lap R juani-colectomy for Wednesday pending colonoscopy findings transfuse I unit prbc in preparation for surg awaiting eval for pre-op stents also have stressed very high surgical risks to pt and family. told them that we can also have pre-op family meeting if they wish. Selected Entries 07/27/18 07/27/18 07/28/18 10:16 11:08 09:09 Pulse Rate 106 H Pulse Rate [ 106 H Anterior Bilateral] Respiratory 20 Rate Respiratory 21 Rate [Anterior Bilateral] Blood Pressure 201/93 07/28/18 11:29 Pulse Rate Pulse Rate [ Anterior Bilateral] Respiratory Rate Respiratory Rate [Anterior Bilateral] Blood Pressure 197/88 Laboratory Tests 07/23/18 05:39 Hgb 8.3 L Hct 25.6 L Objective Vital Signs - 12hr 07/27/18 07/28/18 07/28/18 23:57 00:00 00:16 Temperature 97.8 F Pulse Rate 85 65 67 Pulse Rate [ Anterior Bilateral] Pulse Rate [ 80 From Monitor] Respiratory 25 H 26 H Rate Respiratory Rate [Anterior Bilateral] Blood Pressure 196/104 164/78 164/78 O2 Sat by Pulse 100 100 Oximetry 07/28/18 07/28/18 07/28/18 00:30 00:46 01:00 Temperature Pulse Rate 65 65 63 Pulse Rate [ Anterior Bilateral] Pulse Rate [ From Monitor] Respiratory 23 22 20 Rate Respiratory Rate [Anterior Bilateral] Blood Pressure 164/78 164/78 184/89 O2 Sat by Pulse 100 100 100 Oximetry 07/28/18 07/28/18 07/28/18 01:16 01:19 01:30 Temperature Pulse Rate 70 66 68 Pulse Rate [ Anterior Bilateral] Pulse Rate [ From Monitor] Respiratory 28 H 18 Rate Respiratory Rate [Anterior Bilateral] Blood Pressure 184/89 184/89 164/78 O2 Sat by Pulse 100 100 Oximetry 07/28/18 07/28/18 07/28/18 01:46 02:00 02:16 Temperature Pulse Rate 69 68 65 Pulse Rate [ Anterior Bilateral] Pulse Rate [ From Monitor] Respiratory 28 H 27 H 22 Rate Respiratory Rate [Anterior Bilateral] Blood Pressure 164/78 184/89 194/82 O2 Sat by Pulse 100 100 100 Oximetry 07/28/18 07/28/18 07/28/18 02:30 02:46 03:00 Temperature Pulse Rate 66 63 64 Pulse Rate [ Anterior Bilateral] Pulse Rate [ From Monitor] Respiratory 25 H 19 19 Rate Respiratory Rate [Anterior Bilateral] Blood Pressure 194/82 194/82 199/82 O2 Sat by Pulse 100 100 100 Oximetry 07/28/18 07/28/18 07/28/18 03:16 03:30 03:46 Temperature Pulse Rate 69 66 64 Pulse Rate [ Anterior Bilateral] Pulse Rate [ From Monitor] Respiratory 25 H 20 22 Rate Respiratory Rate [Anterior Bilateral] Blood Pressure 199/82 199/82 199/82 O2 Sat by Pulse 100 100 100 Oximetry 07/28/18 07/28/18 07/28/18 04:00 04:16 04:30 Temperature Pulse Rate 65 74 78 Pulse Rate [ Anterior Bilateral] Pulse Rate [ From Monitor] Respiratory 20 25 H 29 H Rate Respiratory Rate [Anterior Bilateral] Blood Pressure 199/82 199/82 199/82 O2 Sat by Pulse 100 100 99 Oximetry 07/28/18 07/28/18 07/28/18 04:46 05:00 05:16 Temperature Pulse Rate 76 76 77 Pulse Rate [ Anterior Bilateral] Pulse Rate [ From Monitor] Respiratory 24 27 H 16 Rate Respiratory Rate [Anterior Bilateral] Blood Pressure 199/82 199/82 219/93 O2 Sat by Pulse 100 99 99 Oximetry 07/28/18 07/28/18 07/28/18 05:18 05:30 05:46 Temperature Pulse Rate 74 75 76 Pulse Rate [ Anterior Bilateral] Pulse Rate [ From Monitor] Respiratory 26 H 20 Rate Respiratory Rate [Anterior Bilateral] Blood Pressure 219/93 219/93 219/93 O2 Sat by Pulse 98 99 Oximetry 07/28/18 07/28/18 07/28/18 06:00 06:16 06:30 Temperature Pulse Rate 75 69 74 Pulse Rate [ Anterior Bilateral] Pulse Rate [ From Monitor] Respiratory 24 21 24 Rate Respiratory Rate [Anterior Bilateral] Blood Pressure 215/114 215/114 215/114 O2 Sat by Pulse 99 100 99 Oximetry 07/28/18 07/28/18 07/28/18 06:46 07:00 07:16 Temperature Pulse Rate 73 82 75 Pulse Rate [ Anterior Bilateral] Pulse Rate [ From Monitor] Respiratory 25 H 27 H 24 Rate Respiratory Rate [Anterior Bilateral] Blood Pressure 219/93 225/110 215/114 O2 Sat by Pulse 99 99 99 Oximetry 07/28/18 07/28/18 07/28/18 07:30 07:46 08:00 Temperature Pulse Rate 83 91 H 88 Pulse Rate [ 105 H Anterior Bilateral] Pulse Rate [ From Monitor] Respiratory 24 27 H 26 H Rate Respiratory 25 H Rate [Anterior Bilateral] Blood Pressure 215/114 215/114 206/107 O2 Sat by Pulse 98 99 99 Oximetry 07/28/18 07/28/18 07/28/18 08:07 08:58 09:03 Temperature Pulse Rate 89 106 H Pulse Rate [ Anterior Bilateral] Pulse Rate [ From Monitor] Respiratory Rate Respiratory Rate [Anterior Bilateral] Blood Pressure 206/107 209/90 O2 Sat by Pulse 99 Oximetry 07/28/18 07/28/18 09:09 11:29 Temperature Pulse Rate 76 Pulse Rate [ 106 H Anterior Bilateral] Pulse Rate [ From Monitor] Respiratory Rate Respiratory 21 Rate [Anterior Bilateral] Blood Pressure 197/88 O2 Sat by Pulse Oximetry - Labs 07/23/18 05:39 07/28/18 05:27 Diabetes panel 07/28/18 Range/Units 05:27 Sodium 141 (137-145) mmol/L Potassium 4.8 (3.6-5.0) mmol/L Chloride 102.1 (98-107) mmol/L Carbon Dioxide 30 (22-30) mmol/L BUN 25 H (7-17) mg/dL Creatinine 0.6 L (0.7-1.2) mg/dL Glucose 213 H (65-100) mg/dL Calcium 8.8 (8.4-10.2) mg/dL Calcium panel 07/28/18 Range/Units 05:27 Calcium 8.8 (8.4-10.2) mg/dL Phosphorus 3.00 (2.5-4.5) mg/dL Pituitary panel 07/28/18 Range/Units 05:27 Sodium 141 (137-145) mmol/L Potassium 4.8 (3.6-5.0) mmol/L Chloride 102.1 (98-107) mmol/L Carbon Dioxide 30 (22-30) mmol/L BUN 25 H (7-17) mg/dL Creatinine 0.6 L (0.7-1.2) mg/dL Glucose 213 H (65-100) mg/dL Calcium 8.8 (8.4-10.2) mg/dL Adrenal panel 07/28/18 Range/Units 05:27 Sodium 141 (137-145) mmol/L Potassium 4.8 (3.6-5.0) mmol/L Chloride 102.1 (98-107) mmol/L Carbon Dioxide 30 (22-30) mmol/L BUN 25 H (7-17) mg/dL Creatinine 0.6 L (0.7-1.2) mg/dL Glucose 213 H (65-100) mg/dL Calcium 8.8 (8.4-10.2) mg/dL
[2018-07-28] MEDS ORDERED: DIPRIVAN 10 MG/ML IV ONE ×4 (13:30→14:13)
[2018-07-28] MEDS ORDERED: NACL 0.9% 1000 ML 1,000 ML IV SCH (14:00)
--- NOTE | 2018-07-28 14:54 | Post Operative Note ---
Pre-op diagnosis: Abnormal BE Post-op diagnosis: other (Adhesions, Tics) Findings: 1. Incomplete colonoscopy in sigmoid due to tortuous colon, likely from pelvic adhesions (prior surgery) rather than tics 2. Sigmoid tics, severe 3. Tortuous colonoscopy in sigmoid 4. Internal hemorrhoids, Grade II Procedure: Incomplete colonoscopy due to pelvic adhesion/tortuous colon in sigmoid Anesthesia: MAC Surgeon: SHARA JAY Estimated blood loss: none Pathology: none Specimen disposition: other (N/A) Condition: stable Disposition: floor (Recs: 1. Proceed with R hemicolectomy per surgery. 2. Will sign off; please call if needed.)
--- NOTE | 2018-07-28 15:25 | Anesthesia Day of Surgery ---
Anesthesia Day of Surgery - Day of Surgery Patient Examined: Yes Patient H&P Reviewed: Yes Patient is NPO: Yes
--- NOTE | 2018-07-28 15:29 | Anesthesia Consultation ---
Anesthesia Consult and Med Hx Date of service: 07/28/18 - Airway Intubation Access Assessment: Possibly Difficult - Pre-Operative Health Status ASA Pre-Surgery Classification: ASA4 Proposed Anesthetic Plan: MAC - Pulmonary Hx Smoking: Yes - Cardiovascular System Hx Hypertension: Yes (CHF, EF50-55% on Echo07/25/18) Hx Pacemaker: No Hx Internal Defibrillator: No - Central Nervous System Hx Psychiatric Problems: Yes (AMS) - Endocrine Hx Non-Insulin Dependent Diabetes: Yes - Hematic Hx Anemia: Yes - Other Systems Hx Cancer: No
--- NOTE | 2018-07-28 15:39 | Operative Report ---
PROCEDURE PERFORMED: Incomplete colonoscopy due to a tortuous colon, incomplete in the sigmoid region. PREOPERATIVE DIAGNOSES: Abnormal barium enema with possible mass in the right colon. POSTOPERATIVE DIAGNOSES: Incomplete colonoscopy due to tortuous colon and the sigmoid, likely from pelvic adhesions from prior surgery as well as diverticulosis and hemorrhoids. ENDOSCOPIST: Bernardino Banegas MD INSTRUMENT: [employer] video endoscope. MEDICATIONS: MAC anesthesia by [facility]. COMPLICATIONS: No apparent complications from the procedure, but it was incomplete due to adhesions. ESTIMATED BLOOD LOSS: None. BIOPSIES/PATHOLOGY: None. IMPLANTS: None. ASSISTANTS: None. CONDITION AT COMPLETION: Stable. TECHNIQUE: The patient was informed of the risks and benefits of the procedure as well as her niece. Her niece gave informed consent to proceed. The patient was placed in the left lateral decubitus position. The above sedative medications were given. Her vital signs remained stable throughout the procedure. The instrument was advanced from the anus to approximately the proximal sigmoid colon. At that point, severe tortuosity was encountered, I suspect from prior pelvic surgeries. We exchanged for the pediatric colonoscope and this also became fixed at the same location despite the use of counterpressure on the abdominal wall. We then gently insufflated the colon and withdrew. The quality of preparation was good. FINDINGS: 1. Incomplete colonoscopy in the sigmoid due to a tortuous colon. I favor pelvic adhesions versus diverticulosis is the cause. 2. Severe sigmoid diverticulosis. 3. Tortuous colon and the sigmoid, likely from pelvic adhesions. 4. Internal hemorrhoids, grade 2. RECOMMENDATIONS: 1. Proceed with right hemicolectomy as per surgery. 2. We will sign off. Please call if needed. JOB# [id number] JILLIAN/NTS
--- NOTE | 2018-07-28 16:58 | Progress Note ---
Assessment and Plan Had colonoscopy today--Incomplete sec to tortuous colon Patient is 87 yo woman with a history of DM, CHF and hypertension who presents to [facility] ED via EMS with AMS, falling at home, feeling hot, blood glucose was in the 40s and she was given oral glucose by EMS prior to arrival. Associated with falling is diaphoresis, lose of appetite, n/v, sob x 1 day. This is patient 3rd fall at home. She did complain of right upper quadrant, sharp intermittent severe, aggravated by certain movement, relieved by different positions. * CTAP with IV contrast IMPRESSION: Extensive inflammatory changes involving the cecum and proximal ascending colon extending posteriorly with pericolonic stranding. Diagnostic consideration would include appendicitis with perforation presuming the patient still has her appendix. The other possibility is severe diverticulitis with probable perforation. Extensive colonic diverticulosis. Uncomplicated cysts in both kidneys. Hysterectomy. Multilevel disc degeneration in the lumbar spine. Incidental note is made of a crescent-shaped area of mural thrombus at the thoracoabdominal junction involving the aorta. A remote dissection cannot entirely be excluded. * CTA chest pains IMPRESSION: 1. No evidence of pulmonary embolism. 2. Mild cardiomegaly 3. Lingular subsegmental atelectasis versus parenchymal scar 4. 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 No evidence of acute infarct or intracranial hemorrhage. 2. White matter lucency consistent with chronic microvascular ischemic disease. 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, suspect with perforation versus necrotic Colon Cancer vs Cecal diverticulitis perforation versus intra-abdominal phlegmon/abscess vs other : Keep NPO, Starting TPN, GS and ID following Hypertensive urgency, Bp still not controlled: catapress patch, iv enalapril, iv hydralazine and iv labetalol, Recurrent falls with episodes of hypoglycemia: hold DM medication(s), treated with dextrose, following accuchecks Sepsis with suspected perforated bowel from appendix vs diverticuli: Repeat imaging concerning more for tumor necrosis syndrome.Continue abx per ID Cefepime and flagyl Acute metabolic encephalopathy: treat the hypoglycemia and sepsis 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: vascular input noted, no intervention needed at this time IDDM: ssi DVT/GI prophylaxis: sq heparin, IV ppi full code For Hemicolectomy on 08/01/18 Subjective Date of service: 07/28/18 Principal diagnosis: Sepsis and Colitis Interval history: Same condition Objective - Constitutional Vitals: Vital Signs - 12hr 07/28/18 07/28/18 07/28/18 05:00 05:16 05:18 Temperature Pulse Rate 76 77 74 Pulse Rate [ Anterior Bilateral] Respiratory 27 H 16 Rate Respiratory Rate [Anterior Bilateral] Blood Pressure 199/82 219/93 219/93 O2 Sat by Pulse 99 99 Oximetry 07/28/18 07/28/18 07/28/18 05:30 05:46 06:00 Temperature Pulse Rate 75 76 75 Pulse Rate [ Anterior Bilateral] Respiratory 26 H 20 24 Rate Respiratory Rate [Anterior Bilateral] Blood Pressure 219/93 219/93 215/114 O2 Sat by Pulse 98 99 99 Oximetry 07/28/18 07/28/18 07/28/18 06:16 06:30 06:46 Temperature Pulse Rate 69 74 73 Pulse Rate [ Anterior Bilateral] Respiratory 21 24 25 H Rate Respiratory Rate [Anterior Bilateral] Blood Pressure 215/114 215/114 219/93 O2 Sat by Pulse 100 99 99 Oximetry 07/28/18 07/28/18 07/28/18 07:00 07:16 07:30 Temperature Pulse Rate 82 75 83 Pulse Rate [ Anterior Bilateral] Respiratory 27 H 24 24 Rate Respiratory Rate [Anterior Bilateral] Blood Pressure 225/110 215/114 215/114 O2 Sat by Pulse 99 99 98 Oximetry 07/28/18 07/28/18 07/28/18 07:46 08:00 08:07 Temperature Pulse Rate 91 H 88 89 Pulse Rate [ 105 H Anterior Bilateral] Respiratory 27 H 26 H Rate Respiratory 25 H Rate [Anterior Bilateral] Blood Pressure 215/114 206/107 206/107 O2 Sat by Pulse 99 99 Oximetry 07/28/18 07/28/18 07/28/18 08:58 09:03 09:09 Temperature Pulse Rate 106 H Pulse Rate [ 106 H Anterior Bilateral] Respiratory Rate Respiratory 21 Rate [Anterior Bilateral] Blood Pressure 209/90 O2 Sat by Pulse 99 Oximetry 07/28/18 07/28/18 07/28/18 11:29 13:30 13:52 Temperature 97.5 F L Pulse Rate 76 83 86 Pulse Rate [ Anterior Bilateral] Respiratory 26 H Rate Respiratory Rate [Anterior Bilateral] Blood Pressure 197/88 212/98 213/104 O2 Sat by Pulse 100 Oximetry 07/28/18 07/28/18 14:19 14:49 Temperature 97.5 F L 97.4 F L Pulse Rate 86 72 Pulse Rate [ Anterior Bilateral] Respiratory 26 H 19 Rate Respiratory Rate [Anterior Bilateral] Blood Pressure 213/104 178/64 O2 Sat by Pulse 100 100 Oximetry General appearance: Present: no acute distress, well-nourished - EENT Eyes: PERRL, EOM intact ENT: hearing intact, clear oral mucosa Ears: bilateral: normal - Neck Neck: supple, normal ROM - Respiratory Respiratory effort: normal Respiratory: bilateral: CTA - Breasts Breasts: normal - Cardiovascular Rhythm: regular Heart Sounds: Present: S1 & S2. Absent: gallop, rub Extremities: pulses intact, No edema, normal color, Full ROM - Gastrointestinal General gastrointestinal: Present: soft, non-tender, non-distended, normal bowel sounds - Genitourinary Female genitourinary: normal - Integumentary Integumentary: clear, warm, dry - Musculoskeletal Musculoskeletal: 1, strength equal bilaterally - Neurologic Neurologic: moves all extremities - Psychiatric Psychiatric: memory intact, appropriate mood/affect, intact judgment & insight - Labs CBC & Chem 7: 07/29/18 05:26 07/29/18 05:26 Labs: Abnormal lab results 07/27/18 07/28/18 07/28/18 Range/Units 16:14 00:12 05:06 BUN (7-17) mg/dL Creatinine (0.7-1.2) mg/dL Glucose (65-100) mg/dL POC Glucose 225 H 220 H 214 H (70-105) Crossmatch 07/28/18 07/28/18 07/28/18 Range/Units 05:27 08:09 11:05 BUN 25 H (7-17) mg/dL Creatinine 0.6 L (0.7-1.2) mg/dL Glucose 213 H (65-100) mg/dL POC Glucose 228 H 258 H (70-105) Crossmatch 07/28/18 Range/Units 12:19 BUN (7-17) mg/dL Creatinine (0.7-1.2) mg/dL Glucose (65-100) mg/dL POC Glucose (70-105) Crossmatch See Detail
[2018-07-28 18:12] LABS: Hematocrit 24.9 % (30.3-42.9); Hemoglobin 7.7 gm/dl (10.1-14.3); Mean Corpuscular HGB Conc 31 % (30-34); Mean Corpuscular Volume 87 fl (79-97); Platelet Count 305 K/mm3 (140-440); Red Blood Count 2.87 M/mm3 (3.65-5.03)
[2018-07-28] MEDS ORDERED: TPN ADULT 1,999.92 ML IV SCH (20:00)
[2018-07-29] MEDS: FLAGYL 500 MG/100 ML 500 MG/100 ML BAG IV SCH ×3 (02:23→18:30)
[2018-07-29] MEDS: APRESOLINE IV PRN ×2 (02:27→13:12)
[2018-07-29] MEDS: MORPHINE IV PRN ×2 (04:38→22:26)
[2018-07-29] MEDS: HumaLOG SUB-Q SCH ×7 (04:39→23:54)
[2018-07-29 05:43] LABS: Basophils # (Auto) 0.1 K/mm3 (0.0-0.1); Eosinophils # (Auto) 0.3 K/mm3 (0.0-0.4); Eosinophils % (Auto) 2.6 % (0.0-4.3); Hematocrit 26.8 % (30.3-42.9); Hemoglobin 8.5 gm/dl (10.1-14.3); Lymphocytes # (Auto) 1.6 K/mm3 (1.2-5.4); Lymphocytes % (Auto) 14.8 % (13.4-35.0); Mean Corpuscular HGB Conc 32 % (30-34); Mean Corpuscular Volume 84 fl (79-97); Monocytes # (Auto) 1.2 K/mm3 (0.0-0.8); Monocytes % (Auto) 10.8 % (0.0-7.3); Red Cell Distribution Width 17.5 % (13.2-15.2)
[2018-07-29 05:45] LABS: Platelet Count 324 K/mm3 (140-440)
[2018-07-29 06:06] LABS: BUN/Creatinine Ratio 42; Blood Urea Nitrogen 25 mg/dL (7-17); Calcium 8.4 mg/dL (8.4-10.2); Hemolysis Index 27
[2018-07-29] MEDS: VASOTEC IV SCH ×4 (06:34→23:56)
[2018-07-29] MEDS: NORMODYNE IV PRN (07:15)
[2018-07-29] MEDS: DUONEB *Not for PRN Use IH SCH ×3 (07:54→19:39)
[2018-07-29] MEDS: PROTONIX PO SCH (10:14)
[2018-07-29] MEDS: MAXIPIME/NS 2 GM/100 ML 2 GM/100 ML BAG IV SCH (10:24)
[2018-07-29] MEDS: HEPARIN SUB-Q SCH ×2 (10:24→22:30)
[2018-07-29] MEDS ORDERED: NACL 0.9% 500 ML 500 ML ONE (10:59)
--- NOTE | 2018-07-29 11:02 | Progress Note ---
Assessment and Plan Cultures: 07/19/2018 blood culture: no growth 07/22/2018 Blood culture: no growth Assessment: 87-year-old female with diabetes mellitus, congestive heart failure, HTN admitted with: 1) Sepsis: resolved; likely from intra-abdominal source. 2) Intra-abdominal phlegmon/abscess with ?perforation versus necrotic tumor: slight better, barium enema with presumed mass - repeat CT 07/25 showed the masslike lesion in the ascending colon appears stable in size and contour. There is no evidence for obstruction or leakage of contrast. There are scattered diverticula in the proximal colon. Mild infla mmatory changes adjacent to this masslike lesion have decreased by 20% since the previous exam. It is unclear if this represents a colon mass or is associated with diverticulitis. - CEA elevated at 5.6 - barium enema showed ascending colon mass, favor a colon mass over an inf lammatory process such as perforated diverticulitis with abscess. 3) Acute encephalopathy: metabolic- resolved 4) DM-2 - stable Recs: - continue Cefepime and Flagyl D11 today - CEA elevated at 5.6 - Gen Surgery following MD [facility] C: [phone] O: [phone] F: [phone] Subjective Date of service: 07/29/18 Principal diagnosis: Sepsis and Colitis Interval history: No fever. no abdominal pain. Apparently unable to complete colonoscopy due to tortuous colon and diverticulosis and adhesions. Tolerating abx. Objective - Exam Narrative Exam: Physical Exam: Constitutional: Alert, cooperative. No acute distress Head, Ears, Nose: Normocephalic, atraumatic. External ears, nose normal Eyes: Conjunctivae/corneas clear. No icterus. No ptosis. Neck: Supple, no meningeal signs Cardiovascular: S1, S2 normal, no murmur heard Respiratory: Good air entry, clear to auscultation bilaterally GI: soft, non tender, bowel sounds +. No rebound tenderness Musculoskeletal: No pedal edema, no cyanosis. Skin: No rash or abscess Hem/Lymphatic: No palpable cervical or supraclavicular nodes. No lymphangitis Psych: Mood ok. Affect normal Neurological: Awake, alert, oriented - Constitutional Vitals: Vital Signs Temp Pulse Resp BP Pulse Ox 98.1 F 84 17 203/91 98 01/11/19 04:47 07/29/18 08:10 07/29/18 07:55 07/29/18 07:15 07/29/18 08:10 Temperature -Last 24 Hours Temperature 98.1 F Temperature 98.4 F Temperature 98.3 F Temperature 97.5 F Temperature 98.5 F Temperature 97.4 F Temperature 97.5 F Temperature 97.5 F Temperature 97.6 F - Labs CBC & Chem 7: 07/29/18 05:26 07/29/18 05:26 Labs: Abnormal lab results 07/28/18 07/28/18 07/28/18 Range/Units 11:05 12:19 17:40 RBC (3.65-5.03) M/mm3 Hgb (10.1-14.3) gm/dl Hct (30.3-42.9) % MCH (28-32) pg RDW (13.2-15.2) % [place] % (Auto) (0.0-7.3) % [place] # (0.0-0.8) K/mm3 Seg Neutrophils % (40.0-70.0) % Potassium (3.6-5.0) mmol/L BUN (7-17) mg/dL Creatinine (0.7-1.2) mg/dL Glucose (65-100) mg/dL POC Glucose 258 H 209 H (70-105) Crossmatch See Detail 07/28/18 07/28/18 07/28/18 Range/Units 17:40 20:00 23:48 RBC 2.87 L (3.65-5.03) M/mm3 Hgb 7.7 L (10.1-14.3) gm/dl Hct 24.9 L (30.3-42.9) % MCH 27 L (28-32) pg RDW 18.0 H (13.2-15.2) % [place] % (Auto) (0.0-7.3) % [place] # (0.0-0.8) K/mm3 Seg Neutrophils % (40.0-70.0) % Potassium (3.6-5.0) mmol/L BUN (7-17) mg/dL Creatinine (0.7-1.2) mg/dL Glucose (65-100) mg/dL POC Glucose 192 H 211 H (70-105) Crossmatch 07/29/18 07/29/18 07/29/18 Range/Units 02:29 05:26 05:26 RBC 3.20 L (3.65-5.03) M/mm3 Hgb 8.5 L (10.1-14.3) gm/dl Hct 26.8 L (30.3-42.9) % MCH 27 L (28-32) pg RDW 17.5 H (13.2-15.2) % [place] % (Auto) 10.8 H (0.0-7.3) % [place] # 1.2 H (0.0-0.8) K/mm3 Seg Neutrophils % 70.8 H (40.0-70.0) % Potassium 5.3 H (3.6-5.0) mmol/L BUN 25 H (7-17) mg/dL Creatinine 0.6 L (0.7-1.2) mg/dL Glucose 227 H (65-100) mg/dL POC Glucose 217 H (70-105) Crossmatch
[2018-07-29] MEDS ORDERED: NACL 0.9% 500 ML 500 ML IV ONE (14:09)
--- NOTE | 2018-07-29 14:15 | Progress Note ---
Assessment and Plan Pt feeling well Abd soft. GI not able to reach R colon. imp chronic anemia/GI bleeding apple core cecal lesion r/o malignancy cecal obstruction proceed with expl lap R juani-colectomy on Wednesday High surgical risk reviewed with pt and family who understand and have signed consent will proceed still low h/h I PRBC unit transf today Laboratory Tests 07/28/18 07/29/18 17:40 05:26 Hgb 7.7 L 8.5 L Hct 24.9 L 26.8 L Objective Vital Signs - 12hr 07/29/18 07/29/18 07/29/18 02:27 02:30 03:00 Temperature Pulse Rate 72 72 89 Pulse Rate [ Anterior Bilateral] Pulse Rate [ From Monitor] Respiratory 18 23 Rate Respiratory Rate [Anterior Bilateral] Blood Pressure 168/72 168/72 176/86 O2 Sat by Pulse 94 Oximetry 07/29/18 07/29/18 07/29/18 03:30 04:00 04:30 Temperature Pulse Rate 87 84 91 H Pulse Rate [ Anterior Bilateral] Pulse Rate [ 89 From Monitor] Respiratory 22 19 23 Rate Respiratory Rate [Anterior Bilateral] Blood Pressure 176/86 171/76 171/76 O2 Sat by Pulse 93 93 94 Oximetry 07/29/18 07/29/18 07/29/18 04:47 05:00 05:30 Temperature 98.1 F Pulse Rate 87 86 Pulse Rate [ Anterior Bilateral] Pulse Rate [ From Monitor] Respiratory 20 20 Rate Respiratory Rate [Anterior Bilateral] Blood Pressure 183/89 183/89 O2 Sat by Pulse 98 99 Oximetry 07/29/18 07/29/18 07/29/18 06:00 06:34 07:15 Temperature Pulse Rate 71 69 73 Pulse Rate [ Anterior Bilateral] Pulse Rate [ From Monitor] Respiratory 14 Rate Respiratory Rate [Anterior Bilateral] Blood Pressure 197/93 172/73 203/91 O2 Sat by Pulse 99 Oximetry 07/29/18 07/29/18 07/29/18 07:55 07:56 08:10 Temperature Pulse Rate Pulse Rate [ 68 Anterior Bilateral] Pulse Rate [ 84 From Monitor] Respiratory Rate Respiratory 17 Rate [Anterior Bilateral] Blood Pressure O2 Sat by Pulse 99 98 Oximetry 07/29/18 13:12 Temperature Pulse Rate 73 Pulse Rate [ Anterior Bilateral] Pulse Rate [ From Monitor] Respiratory Rate Respiratory Rate [Anterior Bilateral] Blood Pressure 198/74 O2 Sat by Pulse Oximetry - Labs 07/29/18 05:26 07/29/18 05:26 Diabetes panel 07/29/18 Range/Units 05:26 Sodium 141 (137-145) mmol/L Potassium 5.3 H (3.6-5.0) mmol/L Chloride 102.3 (98-107) mmol/L Carbon Dioxide 28 (22-30) mmol/L BUN 25 H (7-17) mg/dL Creatinine 0.6 L (0.7-1.2) mg/dL Glucose 227 H (65-100) mg/dL Calcium 8.4 (8.4-10.2) mg/dL Calcium panel 07/29/18 Range/Units 05:26 Calcium 8.4 (8.4-10.2) mg/dL Phosphorus 3.30 (2.5-4.5) mg/dL Pituitary panel 07/29/18 Range/Units 05:26 Sodium 141 (137-145) mmol/L Potassium 5.3 H (3.6-5.0) mmol/L Chloride 102.3 (98-107) mmol/L Carbon Dioxide 28 (22-30) mmol/L BUN 25 H (7-17) mg/dL Creatinine 0.6 L (0.7-1.2) mg/dL Glucose 227 H (65-100) mg/dL Calcium 8.4 (8.4-10.2) mg/dL Adrenal panel 07/29/18 Range/Units 05:26 Sodium 141 (137-145) mmol/L Potassium 5.3 H (3.6-5.0) mmol/L Chloride 102.3 (98-107) mmol/L Carbon Dioxide 28 (22-30) mmol/L BUN 25 H (7-17) mg/dL Creatinine 0.6 L (0.7-1.2) mg/dL Glucose 227 H (65-100) mg/dL Calcium 8.4 (8.4-10.2) mg/dL
--- NOTE | 2018-07-29 15:17 | Consultation ---
Past History Past Medical History: diabetes, hypertension Past Surgical History: hysterectomy Medications and Allergies Allergies Allergy/AdvReac Type Severity Reaction Status Date / Time No Known Allergies Allergy Unverified 07/18/18 20:42 Home Medications Medication Instructions Recorded Confirmed Last Taken Type Furosemide [Lasix] 20 mg PO DAILY 07/19/18 07/19/18 07/18/18 History Insulin Aspart [Novolog Flexpen] 100 unit SQ TID 07/19/18 07/19/18 07/18/18 History Losartan Potassium [Cozaar] 50 mg PO DAILY 07/19/18 07/19/18 07/18/18 History Metoprolol Xl [Metoprolol 25 mg PO QDAY 07/19/18 07/19/18 07/18/18 History SUCCINATE ER TAB] Naproxen 500 mg PO BID 07/19/18 07/19/18 07/18/18 History Ranitidine HCl [Acid Control] 150 mg PO BID 07/19/18 07/19/18 07/18/18 History Active Meds: Active Medications Albuterol (Proventil) 2.5 mg IH Q4HRT PRN PRN Reason: Shortness Of Breath Last Admin: 07/24/18 20:31 Dose: 2.5 mg Documented by: Albuterol/Ipratropium (Duoneb *Not For Prn Use*) 1 ampul IH TIDRT [facility] Last Admin: 07/29/18 14:23 Dose: 1 ampul Documented by: Clonidine HCl (Catapres-Tts Patch) 0.3 mg TD Mo [facility] Last Admin: 07/25/18 09:02 Dose: 0.3 mg Documented by: Dextrose (D50w (25gm) Syringe) 50 ml IV PRN PRN PRN Reason: Hypoglycemia Enalaprilat (Vasotec) 1.25 mg IV Q6HR [facility] Last Admin: 07/29/18 11:25 Dose: 1.25 mg Documented by: Erythromycin ([place]-Tab) 1,000 mg PO 1300,1400,2300 [facility] Stop: 07/31/18 23:01 Heparin Sodium (Porcine) (Heparin) 5,000 unit SUB-Q Q12HR [facility] Last Admin: 07/29/18 10:24 Dose: 5,000 unit Documented by: Hydralazine HCl (Apresoline) 20 mg IV Q4HR PRN PRN Reason: Hypertension Last Admin: 07/29/18 13:12 Dose: 20 mg Documented by: Metronidazole (Flagyl 500 Mg/100 Ml) 500 mg in 100 mls @ 100 mls/hr IV Q8H [facility]; Protocol Last Admin: 07/29/18 11:23 Dose: 100 mls/hr Documented by: Cefepime HCl (Maxipime/Ns 2 Gm/100 Ml) 2 gm in 100 mls @ 200 mls/hr IV Q12HR [facility]; Protocol Last Admin: 07/29/18 10:24 Dose: 200 mls/hr Documented by: Amino Acids/Electrolytes/Dextrose (Tpn Adult) 1,999.92 mls @ 83.33 mls/hr IV D AILY@1999 [facility]; Protocol Stop: 07/29/18 19:59 Last Admin: 07/28/18 22:51 Dose: 83.33 mls/hr Documented by: Sodium Chloride (Nacl 0.9% 1000 Ml) 1,000 mls @ 50 mls/hr IV DIRECT TRINY Last Admin: 07/28/18 13:50 Dose: 50 mls/hr Documented by: Fat Emulsion Intravenous (Intralipid 20%) 250 mls @ 21 mls/hr IV DAILY@1999 [facility] Stop: 07/30/18 08:00 Amino Acids/Electrolytes/Dextrose (Tpn Adult) 1,999.92 mls @ 83.33 mls/hr IV DAILY@1999 [facility]; Protocol Stop: 07/30/18 19:59 Cefazolin Sodium 2 gm/ Sodium (Chloride) 100 mls @ 200 mls/hr IV ONCE ONE Stop: 08/01/18 07:29 Insulin Human Lispro (Humalog) 0 unit SUB-Q Q4H [facility]; Protocol Last Admin: 07/29/18 13:14 Dose: Not Given Documented by: Labetalol HCl (Normodyne) 10 mg IV Q4H PRN PRN Reason: Blood Pressure Last Admin: 07/29/18 07:15 Dose: 10 mg Documented by: Morphine Sulfate (Morphine) 2 mg IV Q4H PRN PRN Reason: Pain , Severe (7-10) Last Admin: 07/29/18 04:38 Dose: 2 mg Documented by: Neomycin Sulfate (Neomycin) 1,000 mg PO 1300,1400,2300 [facility] Stop: 07/31/18 23:01 Pantoprazole Sodium (Protonix) 40 mg PO DAILY TRINY Last Admin: 07/29/18 10:14 Dose: Not Given Documented by: Exam - Constitutional Vitals: Temp Pulse Resp BP Pulse Ox 98.1 F 88 19 198/74 98 07/29/18 04:47 07/29/18 14:24 07/29/18 14:24 07/29/18 13:12 07/29/18 08:10 Results - Labs CBC & Chem 7: 07/29/18 05:26 07/29/18 05:26 Labs: Abnormal lab results 07/28/18 07/28/18 07/28/18 Range/Units 12:19 17:40 17:40 RBC 2.87 L (3.65-5.03) M/mm3 Hgb 7.7 L (10.1-14.3) gm/dl Hct 24.9 L (30.3-42.9) % MCH 27 L (28-32) pg RDW 18.0 H (13.2-15.2) % [place] % (Auto) (0.0-7.3) % [place] # (0.0-0.8) K/mm3 Seg Neutrophils % (40.0-70.0) % Potassium (3.6-5.0) mmol/L BUN (7-17) mg/dL Creatinine (0.7-1.2) mg/dL Glucose (65-100) mg/dL POC Glucose 209 H (70-105) Crossmatch See Detail 07/28/18 07/28/18 07/29/18 Range/Units 20:00 23:48 02:29 RBC (3.65-5.03) M/mm3 Hgb (10.1-14.3) gm/dl Hct (30.3-42.9) % MCH (28-32) pg RDW (13.2-15.2) % [place] % (Auto) (0.0-7.3) % [place] # (0.0-0.8) K/mm3 Seg Neutrophils % (40.0-70.0) % Potassium (3.6-5.0) mmol/L BUN (7-17) mg/dL Creatinine (0.7-1.2) mg/dL Glucose (65-100) mg/dL POC Glucose 192 H 211 H 217 H (70-105) Crossmatch 07/29/18 07/29/18 07/29/18 Range/Units 05:26 05:26 11:33 RBC 3.20 L (3.65-5.03) M/mm3 Hgb 8.5 L (10.1-14.3) gm/dl Hct 26.8 L (30.3-42.9) % MCH 27 L (28-32) pg RDW 17.5 H (13.2-15.2) % [place] % (Auto) 10.8 H (0.0-7.3) % [place] # 1.2 H (0.0-0.8) K/mm3 Seg Neutrophils % 70.8 H (40.0-70.0) % Potassium 5.3 H (3.6-5.0) mmol/L BUN 25 H (7-17) mg/dL Creatinine 0.6 L (0.7-1.2) mg/dL Glucose 227 H (65-100) mg/dL POC Glucose 202 H (70-105) Crossmatch Assessment and Plan chronic anemia/GI bleeding apple core cecal lesion r/o malignancy - request by Gen Surg for stent placement for anatomic localization before there procedure - [facility] aware will need to coordinate - pt Gi procedure today - disc w/ nurse and consent
--- NOTE | 2018-07-29 18:22 | Progress Note ---
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: vascular input noted, no intervention needed at this time IDDM: ssi DVT/GI prophylaxis: sq heparin, IV ppi full code For Hemicolectomy on 08/01/18 Subjective Date of service: 07/29/18 Principal diagnosis: Sepsis and Colitis Interval history: Same condition Objective - Constitutional Vitals: Vital Signs - 12hr 07/29/18 07/29/18 07/29/18 06:34 07:15 07:55 Pulse Rate 69 73 Pulse Rate [ 68 Anterior Bilateral] Pulse Rate [ From Monitor] Respiratory 17 Rate [Anterior Bilateral] Blood Pressure 172/73 203/91 O2 Sat by Pulse Oximetry 07/29/18 07/29/18 07/29/18 07:56 08:10 13:12 Pulse Rate 73 Pulse Rate [ Anterior Bilateral] Pulse Rate [ 84 From Monitor] Respiratory Rate [Anterior Bilateral] Blood Pressure 198/74 O2 Sat by Pulse 99 98 Oximetry 07/29/18 07/29/18 14:00 14:24 Pulse Rate Pulse Rate [ 88 88 Anterior Bilateral] Pulse Rate [ From Monitor] Respiratory 17 19 Rate [Anterior Bilateral] Blood Pressure O2 Sat by Pulse Oximetry General appearance: Present: no acute distress, well-nourished - EENT Eyes: PERRL, EOM intact ENT: hearing intact, clear oral mucosa Ears: bilateral: normal - Neck Neck: supple, normal ROM - Respiratory Respiratory effort: normal Respiratory: bilateral: CTA - Breasts Breasts: normal - Cardiovascular Rhythm: regular Heart Sounds: Present: S1 & S2. Absent: gallop, rub Extremities: pulses intact, No edema, normal color, Full ROM - Gastrointestinal General gastrointestinal: Present: soft, non-tender, non-distended, normal bowel sounds - Genitourinary Female genitourinary: normal - Integumentary Integumentary: clear, warm, dry - Musculoskeletal Musculoskeletal: 1, strength equal bilaterally - Neurologic Neurologic: moves all extremities - Psychiatric Psychiatric: memory intact, appropriate mood/affect, intact judgment & insight - Labs CBC & Chem 7: 07/29/18 05:26 07/29/18 05:26 Labs: Abnormal lab results 07/28/18 07/28/18 07/28/18 Range/Units 12:19 20:00 23:48 RBC (3.65-5.03) M/mm3 Hgb (10.1-14.3) gm/dl Hct (30.3-42.9) % MCH (28-32) pg RDW (13.2-15.2) % [place] % (Auto) (0.0-7.3) % [place] # (0.0-0.8) K/mm3 Seg Neutrophils % (40.0-70.0) % Potassium (3.6-5.0) mmol/L BUN (7-17) mg/dL Creatinine (0.7-1.2) mg/dL Glucose (65-100) mg/dL POC Glucose 192 H 211 H (70-105) Crossmatch See Detail 07/29/18 07/29/18 07/29/18 Range/Units 02:29 05:26 05:26 RBC 3.20 L (3.65-5.03) M/mm3 Hgb 8.5 L (10.1-14.3) gm/dl Hct 26.8 L (30.3-42.9) % MCH 27 L (28-32) pg RDW 17.5 H (13.2-15.2) % [place] % (Auto) 10.8 H (0.0-7.3) % [place] # 1.2 H (0.0-0.8) K/mm3 Seg Neutrophils % 70.8 H (40.0-70.0) % Potassium 5.3 H (3.6-5.0) mmol/L BUN 25 H (7-17) mg/dL Creatinine 0.6 L (0.7-1.2) mg/dL Glucose 227 H (65-100) mg/dL POC Glucose 217 H (70-105) Crossmatch 07/29/18 Range/Units 11:33 RBC (3.65-5.03) M/mm3 Hgb (10.1-14.3) gm/dl Hct (30.3-42.9) % MCH (28-32) pg RDW (13.2-15.2) % [place] % (Auto) (0.0-7.3) % [place] # (0.0-0.8) K/mm3 Seg Neutrophils % (40.0-70.0) % Potassium (3.6-5.0) mmol/L BUN (7-17) mg/dL Creatinine (0.7-1.2) mg/dL Glucose (65-100) mg/dL POC Glucose 202 H (70-105) Crossmatch
[2018-07-29] MEDS ORDERED: INTRALIPID 20% 250 ML IV SCH (20:00)
[2018-07-29] MEDS ORDERED: TPN ADULT 1,999.92 ML IV SCH (20:00)
[2018-07-30] MEDS: FLAGYL 500 MG/100 ML 500 MG/100 ML BAG IV SCH ×3 (03:46→17:25)
[2018-07-30] MEDS: APRESOLINE IV PRN ×2 (03:47→15:32)
[2018-07-30] MEDS ORDERED: NACL 0.9% 500 ML 500 ML IV ONE (04:00)
[2018-07-30] MEDS: HumaLOG SUB-Q SCH ×5 (06:31→22:40)
[2018-07-30] MEDS: MAXIPIME/NS 2 GM/100 ML 2 GM/100 ML BAG IV SCH ×3 (06:32→21:25)
[2018-07-30] MEDS: DUONEB *Not for PRN Use IH SCH ×3 (07:43→19:47)
[2018-07-30] MEDS ORDERED: LASIX IV ONE (09:00)
[2018-07-30] MEDS ORDERED: LASIX IV SCH (10:00)
[2018-07-30] MEDS: PROTONIX PO SCH (10:41)
[2018-07-30] MEDS: HEPARIN SUB-Q SCH ×2 (10:41→21:26)
[2018-07-30 11:29] LABS: Basophils % (Auto) 0.5 % (0.0-1.8); Eosinophils # (Auto) 0.2 K/mm3 (0.0-0.4); Eosinophils % (Auto) 1.6 % (0.0-4.3); Hematocrit 34.9 % (30.3-42.9); Hemoglobin 11.4 gm/dl (10.1-14.3); Lymphocytes # (Auto) 1.2 K/mm3 (1.2-5.4); Lymphocytes % (Auto) 12.3 % (13.4-35.0); Mean Corpuscular HGB Conc 33 % (30-34); Mean Corpuscular Volume 86 fl (79-97); Monocytes % (Auto) 10.2 % (0.0-7.3); Platelet Count 305 K/mm3 (140-440); Red Blood Count 4.05 M/mm3 (3.65-5.03); Red Cell Distribution Width 17.9 % (13.2-15.2)
[2018-07-30 11:42] LABS: BUN/Creatinine Ratio 31; Blood Urea Nitrogen 22 mg/dL (7-17); Calcium 8.8 mg/dL (8.4-10.2); Hemolysis Index 14
[2018-07-30] MEDS: VASOTEC IV SCH ×2 (12:20→17:26)
--- NOTE | 2018-07-30 12:23 | Progress Note ---
Assessment and Plan Pt status quo Abd soft h/h up post transf for R juani-colectomy Wednesday Selected Entries 07/30/18 07/30/18 08:00 12:20 Temperature 98.4 F Pulse Rate 100 H Blood Pressure 207/111 Laboratory Tests 07/30/18 07/30/18 11:00 11:00 WBC 9.8 Hgb 11.4 Hct 34.9 D Sodium 139 Potassium 4.2 D Chloride 98.1 Carbon Dioxide 30 BUN 22 H Creatinine 0.7 Objective Vital Signs - 12hr 07/30/18 07/30/18 07/30/18 00:30 01:00 01:30 Temperature Pulse Rate 79 78 90 Pulse Rate [ Anterior Bilateral] Pulse Rate [ From Monitor] Respiratory 17 17 22 Rate Respiratory Rate [Anterior Bilateral] Blood Pressure 173/71 173/71 183/74 O2 Sat by Pulse 96 98 94 Oximetry 07/30/18 07/30/18 07/30/18 02:00 02:30 03:00 Temperature Pulse Rate 79 89 86 Pulse Rate [ Anterior Bilateral] Pulse Rate [ From Monitor] Respiratory 17 19 19 Rate Respiratory Rate [Anterior Bilateral] Blood Pressure 192/79 192/79 184/86 O2 Sat by Pulse 93 96 93 Oximetry 07/30/18 07/30/18 07/30/18 03:30 03:47 04:00 Temperature 98.1 F Pulse Rate 77 91 H 94 H Pulse Rate [ Anterior Bilateral] Pulse Rate [ 84 From Monitor] Respiratory 17 21 Rate Respiratory Rate [Anterior Bilateral] Blood Pressure 184/86 184/86 198/96 O2 Sat by Pulse 97 97 Oximetry 07/30/18 07/30/18 07/30/18 04:30 05:00 05:30 Temperature Pulse Rate 98 H 102 H 99 H Pulse Rate [ Anterior Bilateral] Pulse Rate [ From Monitor] Respiratory 18 22 19 Rate Respiratory Rate [Anterior Bilateral] Blood Pressure 198/96 175/75 198/96 O2 Sat by Pulse 97 95 94 Oximetry 07/30/18 07/30/18 07/30/18 06:00 06:20 06:28 Temperature 98.2 F Pulse Rate 112 H 103 H Pulse Rate [ Anterior Bilateral] Pulse Rate [ From Monitor] Respiratory 26 H 20 Rate Respiratory Rate [Anterior Bilateral] Blood Pressure 175/75 207/105 O2 Sat by Pulse 93 97 Oximetry 07/30/18 07/30/18 07/30/18 06:30 06:40 06:50 Temperature Pulse Rate 105 H 102 H 103 H Pulse Rate [ Anterior Bilateral] Pulse Rate [ From Monitor] Respiratory 23 21 18 Rate Respiratory Rate [Anterior Bilateral] Blood Pressure 207/105 207/105 207/105 O2 Sat by Pulse 97 97 98 Oximetry 07/30/18 07/30/18 07/30/18 07:00 07:10 07:20 Temperature Pulse Rate 98 H 101 H 101 H Pulse Rate [ Anterior Bilateral] Pulse Rate [ From Monitor] Respiratory 24 16 26 H Rate Respiratory Rate [Anterior Bilateral] Blood Pressure 207/84 207/84 207/84 O2 Sat by Pulse 96 96 99 Oximetry 07/30/18 07/30/18 07/30/18 07:30 07:40 07:44 Temperature Pulse Rate 99 H 100 H Pulse Rate [ 100 H Anterior Bilateral] Pulse Rate [ From Monitor] Respiratory 24 18 Rate Respiratory 20 Rate [Anterior Bilateral] Blood Pressure 207/84 207/84 O2 Sat by Pulse 97 98 Oximetry 07/30/18 07/30/18 07/30/18 07:45 07:50 07:53 Temperature Pulse Rate 96 H Pulse Rate [ 102 H Anterior Bilateral] Pulse Rate [ From Monitor] Respiratory 21 Rate Respiratory 20 Rate [Anterior Bilateral] Blood Pressure 207/84 O2 Sat by Pulse 96 98 Oximetry 07/30/18 07/30/18 08:00 12:20 Temperature 98.4 F Pulse Rate 100 H Pulse Rate [ Anterior Bilateral] Pulse Rate [ From Monitor] Respiratory Rate Respiratory Rate [Anterior Bilateral] Blood Pressure 207/111 O2 Sat by Pulse Oximetry - Labs 07/30/18 11:00 07/30/18 11:00 Diabetes panel 07/30/18 Range/Units 11:00 Sodium 139 (137-145) mmol/L Potassium 4.2 D (3.6-5.0) mmol/L Chloride 98.1 (98-107) mmol/L Carbon Dioxide 30 (22-30) mmol/L BUN 22 H (7-17) mg/dL Creatinine 0.7 (0.7-1.2) mg/dL Glucose 269 H (65-100) mg/dL Calcium 8.8 (8.4-10.2) mg/dL Calcium panel 07/30/18 Range/Units 11:00 Calcium 8.8 (8.4-10.2) mg/dL Phosphorus 3.00 (2.5-4.5) mg/dL Pituitary panel 07/30/18 Range/Units 11:00 Sodium 139 (137-145) mmol/L Potassium 4.2 D (3.6-5.0) mmol/L Chloride 98.1 (98-107) mmol/L Carbon Dioxide 30 (22-30) mmol/L BUN 22 H (7-17) mg/dL Creatinine 0.7 (0.7-1.2) mg/dL Glucose 269 H (65-100) mg/dL Calcium 8.8 (8.4-10.2) mg/dL Adrenal panel 07/30/18 Range/Units 11:00 Sodium 139 (137-145) mmol/L Potassium 4.2 D (3.6-5.0) mmol/L Chloride 98.1 (98-107) mmol/L Carbon Dioxide 30 (22-30) mmol/L BUN 22 H (7-17) mg/dL Creatinine 0.7 (0.7-1.2) mg/dL Glucose 269 H (65-100) mg/dL Calcium 8.8 (8.4-10.2) mg/dL
[2018-07-30] MEDS: MORPHINE IV PRN (16:33)
--- NOTE | 2018-07-30 17:32 | Progress Note ---
Assessment and Plan Cultures: 07/19/2018 blood culture: no growth 07/22/2018 Blood culture: no growth Assessment: 87-year-old female with diabetes mellitus, congestive heart failure, HTN admitted with: 1) Sepsis: resolved; likely from intra-abdominal source. 2) Intra-abdominal phlegmon/abscess with ?perforation versus necrotic tumor: slight better, barium enema with presumed mass - repeat CT 07/25 showed the masslike lesion in the ascending colon appears stable in size and contour. There is no evidence for obstruction or leakage of contrast. There are scattered diverticula in the proximal colon. Mild inflammatory changes adjacent to this masslike lesion have decreased by 20% since the previous exam. It is unclear if this represents a colon mass or is associated with diverticulitis. - CRP = 4.3 - barium enema showed ascending colon mass, favor a colon mass over an inflammatory process such as perforated diverticulitis with abscess. - EGD not able to reach R colon due to obstruction -CEA 5.6 3) Acute encephalopathy: metabolic- resolved 4) DM-2 - stable 5) ? wheezing/ SOB: better; likely volume overload, CXR 07/25 +pulmonary edema Recs: - continue Cefepime and Flagyl D12 - expl lap R juani-colectomy on Wednesday Dr Lopez will be covering Wednesday MD Lisa [facility] C: [phone] O: [phone] F: [phone] Subjective Date of service: 07/30/18 Principal diagnosis: Sepsis and Colitis Interval history: Patient reports feeling ok No fever. Denies abdominal pain. Objective - Exam Narrative Exam: Constitutional: Alert, cooperative in NAD NC O2 Head, Ears, Nose: Normocephalic, atraumatic. External ears, nose normal Eyes: Conjunctivae/corneas clear. No icterus. No ptosis. Neck: Supple, no meningeal signs Cardiovascular: tachycardic Respiratory: scattered rhonchi GI: soft, no tenderness; bowel sounds +. No rebound tenderness Musculoskeletal: No pedal edema, no cyanosis. Skin: No rash or abscess Hem/Lymphatic: No palpable cervical or supraclavicular nodes. No lymphangitis Psych: Mood ok. Affect normal Neurological: Awake, alert, oriented. No gross abnormality R PICC - Constitutional Vitals: Vital Signs Temp Pulse Resp BP Pulse Ox 98.4 F 93 H 18 178/85 97 07/30/18 08:00 07/30/18 17:26 07/30/18 15:06 07/30/18 17:26 07/30/18 15:00 Temperature -Last 24 Hours Temperature 98.4 F Temperature 98.2 F Temperature 98.1 F Temperature 97.4 F Temperature 97.5 F - Labs CBC & Chem 7: 07/30/18 11:00 07/30/18 11:00 Labs: Abnormal lab results 07/28/18 07/29/18 07/29/18 Range/Units 12:19 18:35 23:01 RDW (13.2-15.2) % Lymph % (Auto) (13.4-35.0) % [place] % (Auto) (0.0-7.3) % [place] # (0.0-0.8) K/mm3 Seg Neutrophils % (40.0-70.0) % BUN (7-17) mg/dL Glucose (65-100) mg/dL POC Glucose 194 H 218 H (70-105) Crossmatch See Detail 07/30/18 07/30/18 07/30/18 Range/Units 04:27 10:12 11:00 RDW (13.2-15.2) % Lymph % (Auto) (13.4-35.0) % [place] % (Auto) (0.0-7.3) % [place] # (0.0-0.8) K/mm3 Seg Neutrophils % (40.0-70.0) % BUN 22 H (7-17) mg/dL Glucose 269 H (65-100) mg/dL POC Glucose 176 H 265 H (70-105) Crossmatch 07/30/18 07/30/18 07/30/18 Range/Units 11:00 15:11 17:21 RDW 17.9 H (13.2-15.2) % Lymph % (Auto) 12.3 L (13.4-35.0) % [place] % (Auto) 10.2 H (0.0-7.3) % [place] # 1.0 H (0.0-0.8) K/mm3 Seg Neutrophils % 75.4 H (40.0-70.0) % BUN (7-17) mg/dL Glucose (65-100) mg/dL POC Glucose 208 H 177 H (70-105) Crossmatch
[2018-07-30] MEDS ORDERED: TPN ADULT 1,999.92 ML IV SCH (20:00)
[2018-07-30] MEDS: NORMODYNE IV PRN (21:25)
--- NOTE | 2018-07-30 23:59 | Progress Note ---
Assessment and Plan - Patient Problems (1) Abdominal pain Current Visit: Yes Status: Acute Qualifiers: Abdominal location: right lower quadrant Qualified Code(s): R10.31 - Right lower quadrant pain (2) Perforated diverticulum of large intestine Current Visit: Yes Status: Acute Subjective Principal diagnosis: Sepsis and Colitis Interval history: no new symptoms Objective Vital Signs - 12hr 07/30/18 07/30/18 07/30/18 12:00 12:20 13:00 Temperature Pulse Rate 100 H 100 H 97 H Pulse Rate [ Anterior Bilateral] Pulse Rate [ 100 H From Monitor] Respiratory 21 22 Rate Respiratory Rate [Anterior Bilateral] Blood Pressure 207/111 207/111 213/101 O2 Sat by Pulse 96 96 Oximetry 07/30/18 07/30/18 07/30/18 14:00 14:53 15:00 Temperature Pulse Rate 93 H 90 Pulse Rate [ 90 Anterior Bilateral] Pulse Rate [ From Monitor] Respiratory 19 15 Rate Respiratory 20 Rate [Anterior Bilateral] Blood Pressure 187/92 165/102 O2 Sat by Pulse 97 97 Oximetry 07/30/18 07/30/18 07/30/18 15:06 15:32 16:00 Temperature 98.8 F Pulse Rate 94 H 102 H Pulse Rate [ 94 H Anterior Bilateral] Pulse Rate [ 102 H From Monitor] Respiratory 18 Rate Respiratory 18 Rate [Anterior Bilateral] Blood Pressure 156/111 180/85 O2 Sat by Pulse 97 Oximetry 07/30/18 07/30/18 07/30/18 17:00 17:26 18:00 Temperature Pulse Rate 95 H 93 H 89 Pulse Rate [ Anterior Bilateral] Pulse Rate [ From Monitor] Respiratory 17 15 Rate Respiratory Rate [Anterior Bilateral] Blood Pressure 180/85 178/85 188/86 O2 Sat by Pulse 97 97 Oximetry 07/30/18 07/30/18 07/30/18 19:00 19:48 20:00 Temperature 98.3 F Pulse Rate 83 92 H Pulse Rate [ 89 Anterior Bilateral] Pulse Rate [ 85 From Monitor] Respiratory 17 17 Rate Respiratory 21 Rate [Anterior Bilateral] Blood Pressure 171/83 167/82 O2 Sat by Pulse 99 97 96 Oximetry 07/30/18 07/30/18 07/30/18 20:08 21:00 21:25 Temperature Pulse Rate 98 H 88 Pulse Rate [ 93 H Anterior Bilateral] Pulse Rate [ From Monitor] Respiratory 21 Rate Respiratory 18 Rate [Anterior Bilateral] Blood Pressure 186/81 186/81 O2 Sat by Pulse 97 Oximetry 07/30/18 22:00 Temperature Pulse Rate 68 Pulse Rate [ Anterior Bilateral] Pulse Rate [ From Monitor] Respiratory 18 Rate Respiratory Rate [Anterior Bilateral] Blood Pressure 186/81 O2 Sat by Pulse 97 Oximetry Constitutional: no acute distress Eyes: non-icteric Neck: supple Ascultation: Bilateral: wheezes (rare) Cardiovascular: regular rate and rhythm Gastrointestinal: normoactive bowel sounds Extremities: no cyanosis Neurologic: normal mental status CBC and BMP: 07/30/18 11:00 07/30/18 11:00 ABG, PT/INR, D-dimer: PT/INR, D-dimer PT 14.5 Sec. (12.2-14.9) 07/28/18 05:27 INR 1.09 (0.87-1.13) 07/28/18 05:27 Abnormal lab findings: Abnormal Labs 07/18/18 07/18/18 07/18/18 20:28 20:48 20:48 WBC 12.3 H RBC 3.47 L Hgb 9.1 L Hct 28.9 L MCH 26 L RDW 16.1 H Plt Count 473 H Lymph % (Auto) 5.4 L [place] % (Auto) Lymph # 0.7 L [place] # Seg Neutrophils % 86.5 H Seg Neutrophils # 10.7 H APTT Sodium Potassium BUN Creatinine Glucose 108 H POC Glucose 109 H Calcium Phosphorus Magnesium C-Reactive Protein Albumin 3.1 L Crossmatch 07/18/18 07/18/18 07/19/18 20:48 23:12 02:50 WBC RBC 3.35 L Hgb 9.0 L Hct 27.9 L MCH 27 L RDW 15.8 H Plt Count Lymph % (Auto) [place] % (Auto) Lymph # [place] # Seg Neutrophils % Seg Neutrophils # APTT 23.2 L Sodium Potassium BUN Creatinine Glucose POC Glucose 106 H Calcium Phosphorus Magnesium C-Reactive Protein Albumin Crossmatch 07/19/18 07/19/18 07/19/18 02:50 08:00 11:46 WBC RBC Hgb Hct MCH RDW Plt Count Lymph % (Auto) [place] % (Auto) Lymph # [place] # Seg Neutrophils % Seg Neutrophils # APTT Sodium 136 L Potassium BUN Creatinine Glucose 105 H POC Glucose 131 H 152 H Calcium Phosphorus Magnesium C-Reactive Protein Albumin Crossmatch 07/19/18 07/19/18 07/19/18 13:46 15:34 20:42 WBC RBC Hgb Hct MCH RDW Plt Count Lymph % (Auto) [place] % (Auto) Lymph # [place] # Seg Neutrophils % Seg Neutrophils # APTT Sodium Potassium BUN Creatinine Glucose POC Glucose 152 H 182 H 187 H Calcium Phosphorus Magnesium C-Reactive Protein Albumin Crossmatch 07/19/18 07/20/18 07/20/18 23:05 02:15 06:14 WBC RBC Hgb Hct MCH RDW Plt Count Lymph % (Auto) [place] % (Auto) Lymph # [place] # Seg Neutrophils % Seg Neutrophils # APTT Sodium Potassium BUN Creatinine Glucose POC Glucose 133 H 154 H 137 H Calcium Phosphorus Magnesium C-Reactive Protein Albumin Crossmatch 07/20/18 07/20/18 07/20/18 06:47 06:47 12:01 WBC 11.7 H RBC 3.51 L Hgb 9.2 L Hct 29.3 L MCH 26 L RDW 15.9 H Plt Count Lymph % (Auto) 12.0 L [place] % (Auto) Lymph # [place] # Seg Neutrophils % 80.8 H Seg Neutrophils # 9.4 H APTT Sodium Potassium BUN Creatinine Glucose 126 H POC Glucose 157 H Calcium 8.3 L Phosphorus Magnesium C-Reactive Protein Albumin 2.8 L Crossmatch 07/20/18 07/20/18 07/20/18 16:11 19:56 23:34 WBC RBC Hgb Hct MCH RDW Plt Count Lymph % (Auto) [place] % (Auto) Lymph # [place] # Seg Neutrophils % Seg Neutrophils # APTT Sodium Potassium BUN Creatinine Glucose POC Glucose 155 H 158 H 149 H Calcium Phosphorus Magnesium C-Reactive Protein Albumin Crossmatch 07/21/18 07/21/18 07/21/18 04:16 08:11 11:15 WBC RBC Hgb Hct MCH RDW Plt Count Lymph % (Auto) [place] % (Auto) Lymph # [place] # Seg Neutrophils % Seg Neutrophils # APTT Sodium Potassium BUN Creatinine Glucose POC Glucose 127 H 142 H 159 H Calcium Phosphorus Magnesium C-Reactive Protein Albumin Crossmatch 07/21/18 07/21/18 07/21/18 16:12 18:49 23:03 WBC RBC Hgb Hct MCH RDW Plt Count Lymph % (Auto) [place] % (Auto) Lymph # [place] # Seg Neutrophils % Seg Neutrophils # APTT Sodium Potassium BUN Creatinine Glucose POC Glucose 134 H 113 H 120 H Calcium Phosphorus Magnesium C-Reactive Protein Albumin Crossmatch 07/22/18 07/22/18 07/22/18 05:24 08:09 11:42 WBC RBC Hgb Hct MCH RDW Plt Count Lymph % (Auto) [place] % (Auto) Lymph # [place] # Seg Neutrophils % Seg Neutrophils # APTT Sodium Potassium BUN Creatinine Glucose POC Glucose 126 H 112 H 143 H Calcium Phosphorus Magnesium C-Reactive Protein Albumin Crossmatch 07/22/18 07/22/18 07/22/18 13:47 16:26 22:48 WBC RBC 3.16 L Hgb 8.3 L Hct 26.5 L MCH 26 L RDW 16.6 H Plt Count Lymph % (Auto) 12.0 L [place] % (Auto) Lymph # 1.1 L [place] # Seg Neutrophils % 79.9 H Seg Neutrophils # APTT Sodium Potassium BUN Creatinine Glucose POC Glucose 132 H 118 H Calcium Phosphorus Magnesium C-Reactive Protein Albumin Crossmatch 07/23/18 07/23/18 07/23/18 05:01 05:39 05:39 WBC RBC 3.04 L Hgb 8.3 L Hct 25.6 L MCH 27 L RDW 16.7 H Plt Count Lymph % (Auto) 13.1 L [place] % (Auto) 8.1 H Lymph # 1.0 L [place] # Seg Neutrophils % 77.0 H Seg Neutrophils # APTT Sodium Potassium BUN 22 H Creatinine Glucose 224 H POC Glucose 197 H Calcium 8.3 L Phosphorus 1.90 L Magnesium 1.60 L C-Reactive Protein Albumin 2.8 L Crossmatch 07/23/18 07/23/18 07/23/18 07:37 12:10 15:41 WBC RBC Hgb Hct MCH RDW Plt Count Lymph % (Auto) [place] % (Auto) Lymph # [place] # Seg Neutrophils % Seg Neutrophils # APTT Sodium Potassium BUN Creatinine Glucose POC Glucose 192 H 191 H 187 H Calcium Phosphorus Magnesium C-Reactive Protein Albumin Crossmatch 07/23/18 07/24/18 07/24/18 23:12 03:12 04:34 WBC RBC Hgb Hct MCH RDW Plt Count Lymph % (Auto) [place] % (Auto) Lymph # [place] # Seg Neutrophils % Seg Neutrophils # APTT Sodium Potassium BUN 25 H Creatinine Glucose 191 H POC Glucose 231 H 224 H Calcium 8.3 L Phosphorus 1.60 L Magnesium 1.60 L C-Reactive Protein Albumin Crossmatch 07/24/18 07/24/18 07/24/18 08:21 12:12 16:55 WBC RBC Hgb Hct MCH RDW Plt Count Lymph % (Auto) [place] % (Auto) Lymph # [place] # Seg Neutrophils % Seg Neutrophils # APTT Sodium Potassium BUN Creatinine Glucose POC Glucose 187 H 167 H 192 H Calcium Phosphorus Magnesium C-Reactive Protein Albumin Crossmatch 07/24/18 07/24/18 07/25/18 20:30 23:38 02:44 WBC RBC Hgb Hct MCH RDW Plt Count Lymph % (Auto) [place] % (Auto) Lymph # [place] # Seg Neutrophils % Seg Neutrophils # APTT Sodium Potassium BUN Creatinine Glucose POC Glucose 192 H 181 H 196 H Calcium Phosphorus Magnesium C-Reactive Protein Albumin Crossmatch 07/25/18 07/25/18 07/25/18 03:58 03:58 06:35 WBC RBC Hgb Hct MCH RDW Plt Count Lymph % (Auto) [place] % (Auto) Lymph # [place] # Seg Neutrophils % Seg Neutrophils # APTT Sodium Potassium BUN 23 H Creatinine Glucose 197 H POC Glucose 203 H Calcium Phosphorus 2.30 L D Magnesium C-Reactive Protein 4.30 H Albumin Crossmatch 07/25/18 07/25/18 07/25/18 12:04 16:33 19:50 WBC RBC Hgb Hct MCH RDW Plt Count Lymph % (Auto) [place] % (Auto) Lymph # [place] # Seg Neutrophils % Seg Neutrophils # APTT Sodium Potassium BUN Creatinine Glucose POC Glucose 153 H 204 H 213 H Calcium Phosphorus Magnesium C-Reactive Protein Albumin Crossmatch 07/25/18 07/26/18 07/26/18 22:52 02:38 04:13 WBC RBC Hgb Hct MCH RDW Plt Count Lymph % (Auto) [place] % (Auto) Lymph # [place] # Seg Neutrophils % Seg Neutrophils # APTT Sodium Potassium BUN 22 H Creatinine Glucose 180 H POC Glucose 182 H 169 H Calcium 8.3 L Phosphorus Magnesium C-Reactive Protein Albumin Crossmatch 07/26/18 07/26/18 07/27/18 06:37 22:45 02:44 WBC RBC Hgb Hct MCH RDW Plt Count Lymph % (Auto) [place] % (Auto) Lymph # [place] # Seg Neutrophils % Seg Neutrophils # APTT Sodium Potassium BUN 24 H Creatinine Glucose 195 H POC Glucose 156 H 237 H Calcium Phosphorus Magnesium C-Reactive Protein Albumin Crossmatch 07/27/18 07/27/18 07/27/18 02:51 06:27 10:45 WBC RBC Hgb Hct MCH RDW Plt Count Lymph % (Auto) [place] % (Auto) Lymph # [place] # Seg Neutrophils % Seg Neutrophils # APTT Sodium Potassium BUN Creatinine Glucose POC Glucose 166 H 212 H 177 H Calcium Phosphorus Magnesium C-Reactive Protein Albumin Crossmatch 07/27/18 07/28/18 07/28/18 16:14 00:12 05:06 WBC RBC Hgb Hct MCH RDW Plt Count Lymph % (Auto) [place] % (Auto) Lymph # [place] # Seg Neutrophils % Seg Neutrophils # APTT Sodium Potassium BUN Creatinine Glucose POC Glucose 225 H 220 H 214 H Calcium Phosphorus Magnesium C-Reactive Protein Albumin Crossmatch 07/28/18 07/28/18 07/28/18 05:27 08:09 11:05 WBC RBC Hgb Hct MCH RDW Plt Count Lymph % (Auto) [place] % (Auto) Lymph # [place] # Seg Neutrophils % Seg Neutrophils # APTT Sodium Potassium BUN 25 H Creatinine 0.6 L Glucose 213 H POC Glucose 228 H 258 H Calcium Phosphorus Magnesium C-Reactive Protein Albumin Crossmatch 07/28/18 07/28/18 07/28/18 12:19 17:40 17:40 WBC RBC 2.87 L Hgb 7.7 L Hct 24.9 L MCH 27 L RDW 18.0 H Plt Count Lymph % (Auto) [place] % (Auto) Lymph # [place] # Seg Neutrophils % Seg Neutrophils # APTT Sodium Potassium BUN Creatinine Glucose POC Glucose 209 H Calcium Phosphorus Magnesium C-Reactive Protein Albumin Crossmatch See Detail 07/28/18 07/28/18 07/29/18 20:00 23:48 02:29 WBC RBC Hgb Hct MCH RDW Plt Count Lymph % (Auto) [place] % (Auto) Lymph # [place] # Seg Neutrophils % Seg Neutrophils # APTT Sodium Potassium BUN Creatinine Glucose POC Glucose 192 H 211 H 217 H Calcium Phosphorus Magnesium C-Reactive Protein Albumin Crossmatch 07/29/18 07/29/18 07/29/18 05:26 05:26 11:33 WBC RBC 3.20 L Hgb 8.5 L Hct 26.8 L MCH 27 L RDW 17.5 H Plt Count Lymph % (Auto) [place] % (Auto) 10.8 H Lymph # [place] # 1.2 H Seg Neutrophils % 70.8 H Seg Neutrophils # APTT Sodium Potassium 5.3 H BUN 25 H Creatinine 0.6 L Glucose 227 H POC Glucose 202 H Calcium Phosphorus Magnesium C-Reactive Protein Albumin Crossmatch 07/29/18 07/29/18 07/30/18 18:35 23:01 04:27 WBC RBC Hgb Hct MCH RDW Plt Count Lymph % (Auto) [place] % (Auto) Lymph # [place] # Seg Neutrophils % Seg Neutrophils # APTT Sodium Potassium BUN Creatinine Glucose POC Glucose 194 H 218 H 176 H Calcium Phosphorus Magnesium C-Reactive Protein Albumin Crossmatch 07/30/18 07/30/18 07/30/18 10:12 11:00 11:00 WBC RBC Hgb Hct MCH RDW 17.9 H Plt Count Lymph % (Auto) 12.3 L [place] % (Auto) 10.2 H Lymph # [place] # 1.0 H Seg Neutrophils % 75.4 H Seg Neutrophils # APTT Sodium Potassium BUN 22 H Creatinine Glucose 269 H POC Glucose 265 H Calcium Phosphorus Magnesium C-Reactive Protein Albumin Crossmatch 07/30/18 07/30/18 07/30/18 15:11 17:21 21:47 WBC RBC Hgb Hct MCH RDW Plt Count Lymph % (Auto) [place] % (Auto) Lymph # [place] # Seg Neutrophils % Seg Neutrophils # APTT Sodium Potassium BUN Creatinine Glucose POC Glucose 208 H 177 H 146 H Calcium Phosphorus Magnesium C-Reactive Protein Albumin Crossmatch
[2018-07-31] MEDS: VASOTEC IV SCH ×4 (00:22→22:18)
[2018-07-31] MEDS: FLAGYL 500 MG/100 ML 500 MG/100 ML BAG IV SCH ×3 (02:00→21:54)
[2018-07-31] MEDS: MORPHINE IV PRN (02:00)
[2018-07-31] MEDS: HumaLOG SUB-Q SCH ×5 (02:15→23:19)
[2018-07-31] MEDS: NORMODYNE IV PRN (03:28)
[2018-07-31 04:50] LABS: BUN/Creatinine Ratio 43; Blood Urea Nitrogen 26 mg/dL (7-17); Calcium 8.5 mg/dL (8.4-10.2); Hemolysis Index 35
[2018-07-31] MEDS: APRESOLINE IV PRN ×4 (05:34→21:54)
--- NOTE | 2018-07-31 06:42 | XRay Report ---
FINAL REPORT PROCEDURE: XR CHEST 1V AP TECHNIQUE: Chest radiograph anteroposterior view. CPT 45299 HISTORY: volume overload COMPARISON: 07/26/2018 FINDINGS: Heart: Normal. Mediastinum/Vessels: Normal. Lungs/Pleural space: Lungs are well-expanded. There is bilateral perihilar pulmonary edema. There are no effusions or pneumothoraces.. Bony thorax: No acute osseous abnormality. Life support devices: There is a right-sided PICC line. The tip is in the superior vena cava.. IMPRESSION: The heart is normal in size.. Lungs are well-expanded. There is bilateral perihilar pulmonary edema. There are no effusions or pneu mothoraces.. There is a right-sided PICC line. The tip is in the superior vena cava..
[2018-07-31] MEDS: DUONEB *Not for PRN Use IH SCH ×3 (09:56→20:41)
[2018-07-31] MEDS: MAXIPIME/NS 2 GM/100 ML 2 GM/100 ML BAG IV SCH ×2 (10:16→22:16)
[2018-07-31] MEDS: HEPARIN SUB-Q SCH ×2 (10:17→22:18)
[2018-07-31] MEDS: PROTONIX PO SCH (10:17)
--- NOTE | 2018-07-31 11:53 | Progress Note ---
Assessment and Plan Pt status quo. no compl for expl lap in am Objective Vital Signs - 12hr 07/31/18 07/31/18 07/31/18 00:00 00:22 01:00 Temperature 98.1 F Pulse Rate 67 76 77 Pulse Rate [ 83 From Monitor] Respiratory 18 19 Rate Blood Pressure 183/82 158/67 158/67 O2 Sat by Pulse 95 95 Oximetry 07/31/18 07/31/18 07/31/18 02:00 03:00 03:28 Temperature Pulse Rate 77 69 75 Pulse Rate [ From Monitor] Respiratory 18 20 Rate Blood Pressure 164/74 196/95 198/101 O2 Sat by Pulse 96 97 Oximetry 07/31/18 07/31/18 07/31/18 04:00 05:00 05:34 Temperature 98.3 F Pulse Rate 64 63 65 Pulse Rate [ 66 From Monitor] Respiratory 15 15 Rate Blood Pressure 198/101 160/74 172/83 O2 Sat by Pulse 96 98 Oximetry 07/31/18 07/31/18 07/31/18 05:47 06:00 08:00 Temperature 98.7 F Pulse Rate 67 65 Pulse Rate [ From Monitor] Respiratory 15 Rate Blood Pressure 162/69 174/73 O2 Sat by Pulse 98 Oximetry 07/31/18 10:30 Temperature Pulse Rate 76 Pulse Rate [ From Monitor] Respiratory Rate Blood Pressure 191/87 O2 Sat by Pulse Oximetry - Labs 07/30/18 11:00 07/31/18 03:56 Diabetes panel 07/31/18 Range/Units 03:56 Sodium 140 (137-145) mmol/L Potassium 4.0 (3.6-5.0) mmol/L Chloride 101.5 (98-107) mmol/L Carbon Dioxide 29 (22-30) mmol/L BUN 26 H (7-17) mg/dL Creatinine 0.6 L (0.7-1.2) mg/dL Glucose 201 H (65-100) mg/dL Calcium 8.5 (8.4-10.2) mg/dL Calcium panel 07/31/18 Range/Units 03:56 Calcium 8.5 (8.4-10.2) mg/dL Phosphorus 3.80 D (2.5-4.5) mg/dL Pituitary panel 07/31/18 Range/Units 03:56 Sodium 140 (137-145) mmol/L Potassium 4.0 (3.6-5.0) mmol/L Chloride 101.5 (98-107) mmol/L Carbon Dioxide 29 (22-30) mmol/L BUN 26 H (7-17) mg/dL Creatinine 0.6 L (0.7-1.2) mg/dL Glucose 201 H (65-100) mg/dL Calcium 8.5 (8.4-10.2) mg/dL Adrenal panel 07/31/18 Range/Units 03:56 Sodium 140 (137-145) mmol/L Potassium 4.0 (3.6-5.0) mmol/L Chloride 101.5 (98-107) mmol/L Carbon Dioxide 29 (22-30) mmol/L BUN 26 H (7-17) mg/dL Creatinine 0.6 L (0.7-1.2) mg/dL Glucose 201 H (65-100) mg/dL Calcium 8.5 (8.4-10.2) mg/dL
--- NOTE | 2018-07-31 12:59 | Progress Note ---
Assessment and Plan - Patient Problems (1) Abdominal pain Current Visit: Yes Status: Acute Qualifiers: Abdominal location: right lower quadrant Qualified Code(s): R10.31 - Right lower quadrant pain (2) Perforated diverticulum of large intestine Current Visit: Yes Status: Acute (3) Hypertension Current Visit: Yes Status: Acute Subjective Principal diagnosis: Sepsis and Colitis Interval history: awake, no sob Objective Vital Signs - 12hr 07/31/18 07/31/18 07/31/18 01:00 02:00 03:00 Temperature Pulse Rate 77 77 69 Pulse Rate [ From Monitor] Respiratory 19 18 20 Rate Blood Pressure 158/67 164/74 196/95 O2 Sat by Pulse 95 96 97 Oximetry 07/31/18 07/31/18 07/31/18 03:28 04:00 05:00 Temperature 98.3 F Pulse Rate 75 64 63 Pulse Rate [ 66 From Monitor] Respiratory 15 15 Rate Blood Pressure 198/101 198/101 160/74 O2 Sat by Pulse 96 98 Oximetry 07/31/18 07/31/18 07/31/18 05:34 05:47 06:00 Temperature Pulse Rate 65 67 65 Pulse Rate [ From Monitor] Respiratory 15 Rate Blood Pressure 172/83 162/69 174/73 O2 Sat by Pulse 98 Oximetry 07/31/18 07/31/18 07/31/18 07:00 08:00 09:00 Temperature 98.7 F Pulse Rate 66 71 75 Pulse Rate [ 73 From Monitor] Respiratory 17 15 16 Rate Blood Pressure 174/73 167/71 106/84 O2 Sat by Pulse 97 97 95 Oximetry 07/31/18 07/31/18 07/31/18 10:00 10:30 11:00 Temperature Pulse Rate 80 76 84 Pulse Rate [ From Monitor] Respiratory 20 17 Rate Blood Pressure 213/106 191/87 188/81 O2 Sat by Pulse 97 96 Oximetry 07/31/18 07/31/18 07/31/18 11:58 11:59 12:00 Temperature 97.4 F L 97.4 F L Pulse Rate 85 Pulse Rate [ 83 From Monitor] Respiratory 18 Rate Blood Pressure 186/83 O2 Sat by Pulse 96 Oximetry 07/31/18 12:28 Temperature Pulse Rate 81 Pulse Rate [ From Monitor] Respiratory Rate Blood Pressure 185/93 O2 Sat by Pulse Oximetry Constitutional: no acute distress Eyes: non-icteric Neck: supple Ascultation: Bilateral: wheezes (rare) Cardiovascular: regular rate and rhythm Gastrointestinal: normoactive bowel sounds Extremities: no cyanosis Neurologic: normal mental status CBC and BMP: 07/30/18 11:00 07/31/18 03:56 ABG, PT/INR, D-dimer: PT/INR, D-dimer PT 14.5 Sec. (12.2-14.9) 07/28/18 05:27 INR 1.09 (0.87-1.13) 07/28/18 05:27 Abnormal lab findings: Abnormal Labs 07/18/18 07/18/18 07/18/18 20:28 20:48 20:48 WBC 12.3 H RBC 3.47 L Hgb 9.1 L Hct 28.9 L MCH 26 L RDW 16.1 H Plt Count 473 H Lymph % (Auto) 5.4 L [place] % (Auto) Lymph # 0.7 L [place] # Seg Neutrophils % 86.5 H Seg Neutrophils # 10.7 H APTT Sodium Potassium BUN Creatinine Glucose 108 H POC Glucose 109 H Calcium Phosphorus Magnesium C-Reactive Protein Albumin 3.1 L Crossmatch 07/18/18 07/18/18 07/19/18 20:48 23:12 02:50 WBC RBC 3.35 L Hgb 9.0 L Hct 27.9 L MCH 27 L RDW 15.8 H Plt Count Lymph % (Auto) [place] % (Auto) Lymph # [place] # Seg Neutrophils % Seg Neutrophils # APTT 23.2 L Sodium Potassium BUN Creatinine Glucose POC Glucose 106 H Calcium Phosphorus Magnesium C-Reactive Protein Albumin Crossmatch 07/19/18 07/19/18 07/19/18 02:50 08:00 11:46 WBC RBC Hgb Hct MCH RDW Plt Count Lymph % (Auto) [place] % (Auto) Lymph # [place] # Seg Neutrophils % Seg Neutrophils # APTT Sodium 136 L Potassium BUN Creatinine Glucose 105 H POC Glucose 131 H 152 H Calcium Phosphorus Magnesium C-Reactive Protein Albumin Crossmatch 07/19/18 07/19/18 07/19/18 13:46 15:34 20:42 WBC RBC Hgb Hct MCH RDW Plt Count Lymph % (Auto) [place] % (Auto) Lymph # [place] # Seg Neutrophils % Seg Neutrophils # APTT Sodium Potassium BUN Creatinine Glucose POC Glucose 152 H 182 H 187 H Calcium Phosphorus Magnesium C-Reactive Protein Albumin Crossmatch 07/19/18 07/20/18 07/20/18 23:05 02:15 06:14 WBC RBC Hgb Hct MCH RDW Plt Count Lymph % (Auto) [place] % (Auto) Lymph # [place] # Seg Neutrophils % Seg Neutrophils # APTT Sodium Potassium BUN Creatinine Glucose POC Glucose 133 H 154 H 137 H Calcium Phosphorus Magnesium C-Reactive Protein Albumin Crossmatch 07/20/18 07/20/18 07/20/18 06:47 06:47 12:01 WBC 11.7 H RBC 3.51 L Hgb 9.2 L Hct 29.3 L MCH 26 L RDW 15.9 H Plt Count Lymph % (Auto) 12.0 L [place] % (Auto) Lymph # [place] # Seg Neutrophils % 80.8 H Seg Neutrophils # 9.4 H APTT Sodium Potassium BUN Creatinine Glucose 126 H POC Glucose 157 H Calcium 8.3 L Phosphorus Magnesium C-Reactive Protein Albumin 2.8 L Crossmatch 07/20/18 07/20/18 07/20/18 16:11 19:56 23:34 WBC RBC Hgb Hct MCH RDW Plt Count Lymph % (Auto) [place] % (Auto) Lymph # [place] # Seg Neutrophils % Seg Neutrophils # APTT Sodium Potassium BUN Creatinine Glucose POC Glucose 155 H 158 H 149 H Calcium Phosphorus Magnesium C-Reactive Protein Albumin Crossmatch 07/21/18 07/21/18 07/21/18 04:16 08:11 11:15 WBC RBC Hgb Hct MCH RDW Plt Count Lymph % (Auto) [place] % (Auto) Lymph # [place] # Seg Neutrophils % Seg Neutrophils # APTT Sodium Potassium BUN Creatinine Glucose POC Glucose 127 H 142 H 159 H Calcium Phosphorus Magnesium C-Reactive Protein Albumin Crossmatch 07/21/18 07/21/18 07/21/18 16:12 18:49 23:03 WBC RBC Hgb Hct MCH RDW Plt Count Lymph % (Auto) [place] % (Auto) Lymph # [place] # Seg Neutrophils % Seg Neutrophils # APTT Sodium Potassium BUN Creatinine Glucose POC Glucose 134 H 113 H 120 H Calcium Phosphorus Magnesium C-Reactive Protein Albumin Crossmatch 07/22/18 07/22/18 07/22/18 05:24 08:09 11:42 WBC RBC Hgb Hct MCH RDW Plt Count Lymph % (Auto) [place] % (Auto) Lymph # [place] # Seg Neutrophils % Seg Neutrophils # APTT Sodium Potassium BUN Creatinine Glucose POC Glucose 126 H 112 H 143 H Calcium Phosphorus Magnesium C-Reactive Protein Albumin Crossmatch 07/22/18 07/22/18 07/22/18 13:47 16:26 22:48 WBC RBC 3.16 L Hgb 8.3 L Hct 26.5 L MCH 26 L RDW 16.6 H Plt Count Lymph % (Auto) 12.0 L [place] % (Auto) Lymph # 1.1 L [place] # Seg Neutrophils % 79.9 H Seg Neutrophils # APTT Sodium Potassium BUN Creatinine Glucose POC Glucose 132 H 118 H Calcium Phosphorus Magnesium C-Reactive Protein Albumin Crossmatch 07/23/18 07/23/18 07/23/18 05:01 05:39 05:39 WBC RBC 3.04 L Hgb 8.3 L Hct 25.6 L MCH 27 L RDW 16.7 H Plt Count Lymph % (Auto) 13.1 L [place] % (Auto) 8.1 H Lymph # 1.0 L [place] # Seg Neutrophils % 77.0 H Seg Neutrophils # APTT Sodium Potassium BUN 22 H Creatinine Glucose 224 H POC Glucose 197 H Calcium 8.3 L Phosphorus 1.90 L Magnesium 1.60 L C-Reactive Protein Albumin 2.8 L Crossmatch 07/23/18 07/23/18 07/23/18 07:37 12:10 15:41 WBC RBC Hgb Hct MCH RDW Plt Count Lymph % (Auto) [place] % (Auto) Lymph # [place] # Seg Neutrophils % Seg Neutrophils # APTT Sodium Potassium BUN Creatinine Glucose POC Glucose 192 H 191 H 187 H Calcium Phosphorus Magnesium C-Reactive Protein Albumin Crossmatch 07/23/18 07/24/18 07/24/18 23:12 03:12 04:34 WBC RBC Hgb Hct MCH RDW Plt Count Lymph % (Auto) [place] % (Auto) Lymph # [place] # Seg Neutrophils % Seg Neutrophils # APTT Sodium Potassium BUN 25 H Creatinine Glucose 191 H POC Glucose 231 H 224 H Calcium 8.3 L Phosphorus 1.60 L Magnesium 1.60 L C-Reactive Protein Albumin Crossmatch 07/24/18 07/24/18 07/24/18 08:21 12:12 16:55 WBC RBC Hgb Hct MCH RDW Plt Count Lymph % (Auto) [place] % (Auto) Lymph # [place] # Seg Neutrophils % Seg Neutrophils # APTT Sodium Potassium BUN Creatinine Glucose POC Glucose 187 H 167 H 192 H Calcium Phosphorus Magnesium C-Reactive Protein Albumin Crossmatch 07/24/18 07/24/18 07/25/18 20:30 23:38 02:44 WBC RBC Hgb Hct MCH RDW Plt Count Lymph % (Auto) [place] % (Auto) Lymph # [place] # Seg Neutrophils % Seg Neutrophils # APTT Sodium Potassium BUN Creatinine Glucose POC Glucose 192 H 181 H 196 H Calcium Phosphorus Magnesium C-Reactive Protein Albumin Crossmatch 07/25/18 07/25/18 07/25/18 03:58 03:58 06:35 WBC RBC Hgb Hct MCH RDW Plt Count Lymph % (Auto) [place] % (Auto) Lymph # [place] # Seg Neutrophils % Seg Neutrophils # APTT Sodium Potassium BUN 23 H Creatinine Glucose 197 H POC Glucose 203 H Calcium Phosphorus 2.30 L D Magnesium C-Reactive Protein 4.30 H Albumin Crossmatch 07/25/18 07/25/18 07/25/18 12:04 16:33 19:50 WBC RBC Hgb Hct MCH RDW Plt Count Lymph % (Auto) [place] % (Auto) Lymph # [place] # Seg Neutrophils % Seg Neutrophils # APTT Sodium Potassium BUN Creatinine Glucose POC Glucose 153 H 204 H 213 H Calcium Phosphorus Magnesium C-Reactive Protein Albumin Crossmatch 07/25/18 07/26/18 07/26/18 22:52 02:38 04:13 WBC RBC Hgb Hct MCH RDW Plt Count Lymph % (Auto) [place] % (Auto) Lymph # [place] # Seg Neutrophils % Seg Neutrophils # APTT Sodium Potassium BUN 22 H Creatinine Glucose 180 H POC Glucose 182 H 169 H Calcium 8.3 L Phosphorus Magnesium C-Reactive Protein Albumin Crossmatch 07/26/18 07/26/18 07/27/18 06:37 22:45 02:44 WBC RBC Hgb Hct MCH RDW Plt Count Lymph % (Auto) [place] % (Auto) Lymph # [place] # Seg Neutrophils % Seg Neutrophils # APTT Sodium Potassium BUN 24 H Creatinine Glucose 195 H POC Glucose 156 H 237 H Calcium Phosphorus Magnesium C-Reactive Protein Albumin Crossmatch 07/27/18 07/27/18 07/27/18 02:51 06:27 10:45 WBC RBC Hgb Hct MCH RDW Plt Count Lymph % (Auto) [place] % (Auto) Lymph # [place] # Seg Neutrophils % Seg Neutrophils # APTT Sodium Potassium BUN Creatinine Glucose POC Glucose 166 H 212 H 177 H Calcium Phosphorus Magnesium C-Reactive Protein Albumin Crossmatch 07/27/18 07/28/18 07/28/18 16:14 00:12 05:06 WBC RBC Hgb Hct MCH RDW Plt Count Lymph % (Auto) [place] % (Auto) Lymph # [place] # Seg Neutrophils % Seg Neutrophils # APTT Sodium Potassium BUN Creatinine Glucose POC Glucose 225 H 220 H 214 H Calcium Phosphorus Magnesium C-Reactive Protein Albumin Crossmatch 07/28/18 07/28/18 07/28/18 05:27 08:09 11:05 WBC RBC Hgb Hct MCH RDW Plt Count Lymph % (Auto) [place] % (Auto) Lymph # [place] # Seg Neutrophils % Seg Neutrophils # APTT Sodium Potassium BUN 25 H Creatinine 0.6 L Glucose 213 H POC Glucose 228 H 258 H Calcium Phosphorus Magnesium C-Reactive Protein Albumin Crossmatch 07/28/18 07/28/18 07/28/18 12:19 17:40 17:40 WBC RBC 2.87 L Hgb 7.7 L Hct 24.9 L MCH 27 L RDW 18.0 H Plt Count Lymph % (Auto) [place] % (Auto) Lymph # [place] # Seg Neutrophils % Seg Neutrophils # APTT Sodium Potassium BUN Creatinine Glucose POC Glucose 209 H Calcium Phosphorus Magnesium C-Reactive Protein Albumin Crossmatch See Detail 07/28/18 07/28/18 07/29/18 20:00 23:48 02:29 WBC RBC Hgb Hct MCH RDW Plt Count Lymph % (Auto) [place] % (Auto) Lymph # [place] # Seg Neutrophils % Seg Neutrophils # APTT Sodium Potassium BUN Creatinine Glucose POC Glucose 192 H 211 H 217 H Calcium Phosphorus Magnesium C-Reactive Protein Albumin Crossmatch 07/29/18 07/29/18 07/29/18 05:26 05:26 11:33 WBC RBC 3.20 L Hgb 8.5 L Hct 26.8 L MCH 27 L RDW 17.5 H Plt Count Lymph % (Auto) [place] % (Auto) 10.8 H Lymph # [place] # 1.2 H Seg Neutrophils % 70.8 H Seg Neutrophils # APTT Sodium Potassium 5.3 H BUN 25 H Creatinine 0.6 L Glucose 227 H POC Glucose 202 H Calcium Phosphorus Magnesium C-Reactive Protein Albumin Crossmatch 07/29/18 07/29/18 07/30/18 18:35 23:01 04:27 WBC RBC Hgb Hct MCH RDW Plt Count Lymph % (Auto) [place] % (Auto) Lymph # [place] # Seg Neutrophils % Seg Neutrophils # APTT Sodium Potassium BUN Creatinine Glucose POC Glucose 194 H 218 H 176 H Calcium Phosphorus Magnesium C-Reactive Protein Albumin Crossmatch 07/30/18 07/30/18 07/30/18 10:12 11:00 11:00 WBC RBC Hgb Hct MCH RDW 17.9 H Plt Count Lymph % (Auto) 12.3 L [place] % (Auto) 10.2 H Lymph # [place] # 1.0 H Seg Neutrophils % 75.4 H Seg Neutrophils # APTT Sodium Potassium BUN 22 H Creatinine Glucose 269 H POC Glucose 265 H Calcium Phosphorus Magnesium C-Reactive Protein Albumin Crossmatch 07/30/18 07/30/18 07/30/18 15:11 17:21 21:47 WBC RBC Hgb Hct MCH RDW Plt Count Lymph % (Auto) [place] % (Auto) Lymph # [place] # Seg Neutrophils % Seg Neutrophils # APTT Sodium Potassium BUN Creatinine Glucose POC Glucose 208 H 177 H 146 H Calcium Phosphorus Magnesium C-Reactive Protein Albumin Crossmatch 07/31/18 07/31/18 07/31/18 02:13 03:56 10:15 WBC RBC Hgb Hct MCH RDW Plt Count Lymph % (Auto) [place] % (Auto) Lymph # [place] # Seg Neutrophils % Seg Neutrophils # APTT Sodium Potassium BUN 26 H Creatinine 0.6 L Glucose 201 H POC Glucose 208 H 216 H Calcium Phosphorus Magnesium C-Reactive Protein Albumin Crossmatch
[2018-07-31] MEDS: ERY-TAB PO SCH ×3 (13:02→22:16)
[2018-07-31] MEDS: NEOMYCIN PO SCH ×3 (13:04→22:17)
[2018-07-31] MEDS ORDERED: TPN ADULT 1,999.92 ML IV SCH (20:00)
--- NOTE | 2018-07-31 21:54 | Progress Note ---
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: vascular input noted, no intervention needed at this time IDDM: ssi DVT/GI prophylaxis: sq heparin, IV ppi full code For Hemicolectomy on 08/01/18 Subjective Date of service: 07/30/18 Principal diagnosis: Sepsis and Colitis Interval history: Same condition Objective - Constitutional Vitals: Vital Signs - 12hr 07/31/18 07/31/18 07/31/18 10:00 10:30 11:00 Temperature Pulse Rate 80 76 84 Pulse Rate [ Anterior Bilateral] Pulse Rate [ From Monitor] Respiratory 20 17 Rate Respiratory Rate [Anterior Bilateral] Blood Pressure 213/106 191/87 188/81 O2 Sat by Pulse 98 96 Oximetry 07/31/18 07/31/18 07/31/18 11:58 11:59 12:00 Temperature 97.4 F L 97.4 F L Pulse Rate 85 Pulse Rate [ Anterior Bilateral] Pulse Rate [ 83 From Monitor] Respiratory 18 Rate Respiratory Rate [Anterior Bilateral] Blood Pressure 186/83 O2 Sat by Pulse 96 Oximetry 07/31/18 07/31/18 07/31/18 12:28 13:00 14:00 Temperature Pulse Rate 81 78 74 Pulse Rate [ Anterior Bilateral] Pulse Rate [ From Monitor] Respiratory 16 19 Rate Respiratory Rate [Anterior Bilateral] Blood Pressure 185/93 192/88 192/88 O2 Sat by Pulse 97 96 Oximetry 07/31/18 07/31/18 07/31/18 14:10 14:18 15:00 Temperature Pulse Rate 89 Pulse Rate [ 84 88 Anterior Bilateral] Pulse Rate [ From Monitor] Respiratory 21 Rate Respiratory 18 18 Rate [Anterior Bilateral] Blood Pressure 200/105 O2 Sat by Pulse 95 Oximetry 07/31/18 07/31/18 07/31/18 16:00 16:18 17:00 Temperature 97.5 F L Pulse Rate 96 H 90 Pulse Rate [ Anterior Bilateral] Pulse Rate [ 90 From Monitor] Respiratory 24 20 Rate Respiratory Rate [Anterior Bilateral] Blood Pressure 182/107 182/107 180/100 O2 Sat by Pulse 98 96 Oximetry 07/31/18 07/31/18 07/31/18 18:00 20:41 20:43 Temperature Pulse Rate 82 Pulse Rate [ 91 H Anterior Bilateral] Pulse Rate [ From Monitor] Respiratory 19 Rate Respiratory 20 Rate [Anterior Bilateral] Blood Pressure 160/77 O2 Sat by Pulse 97 97 Oximetry 07/31/18 20:50 Temperature Pulse Rate Pulse Rate [ 95 H Anterior Bilateral] Pulse Rate [ From Monitor] Respiratory Rate Respiratory 20 Rate [Anterior Bilateral] Blood Pressure O2 Sat by Pulse Oximetry General appearance: Present: no acute distress, well-nourished - EENT Eyes: PERRL, EOM intact ENT: hearing intact, clear oral mucosa Ears: bilateral: normal - Neck Neck: supple, normal ROM - Respiratory Respiratory effort: normal Respiratory: bilateral: CTA - Breasts Breasts: normal - Cardiovascular Heart rate: 88 Rhythm: regular Heart Sounds: Present: S1 & S2. Absent: gallop, rub Extremities: pulses intact, No edema, normal color, Full ROM - Gastrointestinal General gastrointestinal: Present: soft, non-tender, non-distended, normal bowel sounds - Genitourinary Female genitourinary: normal - Integumentary Integumentary: clear, warm, dry - Musculoskeletal Musculoskeletal: 1, strength equal bilaterally - Neurologic Neurologic: moves all extremities - Psychiatric Psychiatric: memory intact, appropriate mood/affect, intact judgment & insight - Allied health notes Allied health notes reviewed: nursing - Labs CBC & Chem 7: 07/30/18 11:00 07/31/18 03:56 Labs: Abnormal lab results 07/30/18 07/31/18 07/31/18 Range/Units 21:47 02:13 03:56 BUN 26 H (7-17) mg/dL Creatinine 0.6 L (0.7-1.2) mg/dL Glucose 201 H (65-100) mg/dL POC Glucose 146 H 208 H (70-105) 07/31/18 07/31/18 Range/Units 10:15 15:42 BUN (7-17) mg/dL Creatinine (0.7-1.2) mg/dL Glucose (65-100) mg/dL POC Glucose 216 H 205 H (70-105)
--- NOTE | 2018-07-31 22:03 | Progress Note ---
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: vascular input noted, no intervention needed at this time IDDM: ssi DVT/GI prophylaxis: sq heparin, IV ppi full code For Hemicolectomy on 08/01/18 Subjective Date of service: 07/31/18 Principal diagnosis: Sepsis and Colitis Interval history: Same condition Objective - Constitutional Vitals: Vital Signs - 12hr 07/31/18 07/31/18 07/31/18 10:00 10:30 11:00 Temperature Pulse Rate 80 76 84 Pulse Rate [ Anterior Bilateral] Pulse Rate [ From Monitor] Respiratory 20 17 Rate Respiratory Rate [Anterior Bilateral] Blood Pressure 213/106 191/87 188/81 O2 Sat by Pulse 98 96 Oximetry 07/31/18 07/31/18 07/31/18 11:58 11:59 12:00 Temperature 97.4 F L 97.4 F L Pulse Rate 85 Pulse Rate [ Anterior Bilateral] Pulse Rate [ 83 From Monitor] Respiratory 18 Rate Respiratory Rate [Anterior Bilateral] Blood Pressure 186/83 O2 Sat by Pulse 96 Oximetry 07/31/18 07/31/18 07/31/18 12:28 13:00 14:00 Temperature Pulse Rate 81 78 74 Pulse Rate [ Anterior Bilateral] Pulse Rate [ From Monitor] Respiratory 16 19 Rate Respiratory Rate [Anterior Bilateral] Blood Pressure 185/93 192/88 192/88 O2 Sat by Pulse 97 96 Oximetry 07/31/18 07/31/18 07/31/18 14:10 14:18 15:00 Temperature Pulse Rate 89 Pulse Rate [ 84 88 Anterior Bilateral] Pulse Rate [ From Monitor] Respiratory 21 Rate Respiratory 18 18 Rate [Anterior Bilateral] Blood Pressure 200/105 O2 Sat by Pulse 95 Oximetry 07/31/18 07/31/18 07/31/18 16:00 16:18 17:00 Temperature 97.5 F L Pulse Rate 96 H 90 Pulse Rate [ Anterior Bilateral] Pulse Rate [ 90 From Monitor] Respiratory 24 20 Rate Respiratory Rate [Anterior Bilateral] Blood Pressure 182/107 182/107 180/100 O2 Sat by Pulse 98 96 Oximetry 07/31/18 07/31/18 07/31/18 18:00 20:41 20:43 Temperature Pulse Rate 82 Pulse Rate [ 91 H Anterior Bilateral] Pulse Rate [ From Monitor] Respiratory 19 Rate Respiratory 20 Rate [Anterior Bilateral] Blood Pressure 160/77 O2 Sat by Pulse 97 97 Oximetry 07/31/18 20:50 Temperature Pulse Rate Pulse Rate [ 95 H Anterior Bilateral] Pulse Rate [ From Monitor] Respiratory Rate Respiratory 20 Rate [Anterior Bilateral] Blood Pressure O2 Sat by Pulse Oximetry General appearance: Present: no acute distress, well-nourished - EENT Eyes: PERRL, EOM intact ENT: hearing intact, clear oral mucosa Ears: bilateral: normal - Neck Neck: supple, normal ROM - Respiratory Respiratory effort: normal Respiratory: bilateral: CTA - Breasts Breasts: normal - Cardiovascular Heart rate: 80 Rhythm: regular Heart Sounds: Present: S1 & S2. Absent: gallop, rub Extremities: pulses intact, No edema, normal color, Full ROM - Gastrointestinal General gastrointestinal: Present: soft, non-tender, non-distended, normal bowel sounds - Genitourinary Female genitourinary: normal - Integumentary Integumentary: clear, warm, dry - Musculoskeletal Musculoskeletal: 1, strength equal bilaterally - Neurologic Neurologic: moves all extremities - Psychiatric Psychiatric: memory intact, appropriate mood/affect, intact judgment & insight - Labs CBC & Chem 7: 07/30/18 11:00 07/31/18 03:56 Labs: Abnormal lab results 07/31/18 07/31/18 07/31/18 Range/Units 02:13 03:56 10:15 BUN 26 H (7-17) mg/dL Creatinine 0.6 L (0.7-1.2) mg/dL Glucose 201 H (65-100) mg/dL POC Glucose 208 H 216 H (70-105) 07/31/18 Range/Units 15:42 BUN (7-17) mg/dL Creatinine (0.7-1.2) mg/dL Glucose (65-100) mg/dL POC Glucose 205 H (70-105)
[2018-08-01] MEDS: VASOTEC IV SCH ×4 (00:08→18:07)
[2018-08-01] MEDS: MORPHINE IV PRN (00:09)
[2018-08-01] MEDS: FLAGYL 500 MG/100 ML 500 MG/100 ML BAG IV SCH ×3 (02:57→18:09)
[2018-08-01] MEDS: HumaLOG SUB-Q SCH ×7 (03:15→22:24)
[2018-08-01 05:17] LABS: BUN/Creatinine Ratio 52; Blood Urea Nitrogen 26 mg/dL (7-17); Calcium 7.1 mg/dL (8.4-10.2); Hemolysis Index 13
[2018-08-01] MEDS ORDERED: ceFAZolin 2 GM in NACL 0.9% 100 ML IV ONE (07:00)
[2018-08-01] MEDS ORDERED: XYLOCAINE MPF 2% ONE (07:16)
[2018-08-01] MEDS ORDERED: ZEMURON IV ONE ×2 (07:16→10:02)
[2018-08-01] MEDS ORDERED: DIPRIVAN 10 MG/ML IV ONE (07:16)
[2018-08-01] MEDS ORDERED: DILAUDID ONE ×2 (07:16→12:04)
[2018-08-01] MEDS ORDERED: DEXMEDETOMIDINE IV ONE (07:52)
[2018-08-01] MEDS ORDERED: NACL 0.9% 100 ML ONE (07:52)
[2018-08-01] MEDS ORDERED: ALBURX 25% (ALBUMIN) IV ONE (07:54)
[2018-08-01] MEDS ORDERED: NACL 0.9% 1000 ML 1,000 ML IV SCH (08:00)
[2018-08-01] MEDS ORDERED: NACL 0.9% 500 ML 500 ML IV ONE (08:00)
[2018-08-01] MEDS ORDERED: NEO SYNEPHRINE ONE (08:57)
[2018-08-01] MEDS ORDERED: AMIDATE IV ONE (08:57)
--- NOTE | 2018-08-01 09:03 | Operative Report ---
PREOPERATIVE DIAGNOSES: Pelvic mass, abdominal mass POSTOPERATIVE DIAGNOSES: Pelvic mass, abdominal mass, pending abdominal exploration. PROCEDURE: Cystoscopy, insertion of bilateral stents. SURGEON: Jose Valentin MD ANESTHESIA: General. FINDINGS: This is a woman with a pelvic mass, cystoscopy and stents were requested. DESCRIPTION OF PROCEDURE: The patient was brought to the operating room and placed on the operating table. Following induction of anesthesia, placed in lithotomy position, prepped and draped in usual sterile fashion. Cystourethroscopy showed no bladder lesions. The right orifice was very, very pinpoint, left was normal. A whistle tip went up on the left without any difficulty, irrigated clear. On the right side, we used a wire and placed an open-ended 5-Lao because a 6-Lao did not fit over the orifice. It was somewhat tight, probably getting around the mass. The patient tolerated the procedure well and brought to recovery in stable condition. JOB# [id number] MARIA L/SELAM
--- NOTE | 2018-08-01 09:24 | Post Operative Note ---
Date of procedure: 08/01/18 Pre-op diagnosis: abd mass Post-op diagnosis: same Findings: same Procedure: cysto stents Anesthesia: GETA Surgeon: ALINA MORALES Estimated blood loss: none Pathology: none Condition: stable Disposition: PACU
[2018-08-01] MEDS: DUONEB *Not for PRN Use IH SCH ×3 (09:36→20:11)
[2018-08-01] MEDS ORDERED: DIPRIVAN 10 MG/ML 1,000 MG/100 ML BOTTLE IV ONE (11:37)
[2018-08-01] MEDS ORDERED: LACTATED RINGERS 1,000 ML ONE (11:51)
[2018-08-01] MEDS ORDERED: ARTIFICIAL TEARS OPHTH OINT OU PRN (11:56)
[2018-08-01] MEDS ORDERED: VASELINE LIP THERAPY TP PRN (11:56)
[2018-08-01] MEDS: DIPRIVAN 10 MG/ML 1,000 MG/100 ML BOTTLE IV SCH (12:06)
--- NOTE | 2018-08-01 12:36 | XRay Report ---
AP CHEST: HISTORY: Endotracheal tube placement Compared to 07/31/18. The endotracheal tube terminates 5.6 cm superior to the barber. A nasogastric tube terminates just beyond the GE junction. Consider advancement by 10 cm. Right arm PICC terminates at the cavoatrial junction. Heart size is at the upper limits of normal. Central pulmonary vessels appear slightly prominent which is unchanged. The lungs are clear. No pleural effusion or pneumothorax. IMPRESSION: Lines and tubes as described. Slightly prominent pulmonary vessels which is unchanged since 07/31/18.
--- NOTE | 2018-08-01 12:43 | Anesthesia Consultation ---
Anesthesia Consult and Med Hx Date of service: 08/01/18 - Airway ROM Head & Neck: Adequate Mental/Hyoid Distance: Adequate Mallampati Class: Class III Intubation Access Assessment: Possibly Difficult - Pulmonary Exam CTA: Yes - Cardiac Exam Cardiac Exam: RRR - Pre-Operative Health Status ASA Pre-Surgery Classification: ASA3 Proposed Anesthetic Plan: General (HTN, DM, CHF) - Pulmonary Hx Smoking: Yes - Cardiovascular System Hx Hypertension: Yes (CHF, EF50-55% on Echo07/25/18) Hx Pacemaker: No Hx Internal Defibrillator: No - Central Nervous System Hx Psychiatric Problems: Yes (AMS) - Endocrine Hx Non-Insulin Dependent Diabetes: Yes - Hematic Hx Anemia: Yes - Other Systems Hx Cancer: No
--- NOTE | 2018-08-01 12:43 | Anesthesia Day of Surgery ---
Anesthesia Day of Surgery - Day of Surgery Patient Examined: Yes Patient H&P Reviewed: Yes Patient is NPO: Yes
--- NOTE | 2018-08-01 12:44 | Post Anesthesia Evaluation ---
- Post Anesthesia Evaluation Patient Participated: Yes Airway Patent: Yes Stable Respiratory Function: Yes Nausea/Vomiting: No Temp > 96.8F: Yes Pain Manageable: Yes Adequeate Hydration: Yes Anesthesia Complications: No Patient on Ventilator: Yes (Intubated, ETT may be moved out, ABGs will lower FIO2)
--- NOTE | 2018-08-01 13:00 | Operative Report ---
PREOPERATIVE DIAGNOSES: Rule out cecal mass, rule out colon cancer. POSTOPERATIVE DIAGNOSES: Rule out cecal mass, rule out colon cancer. PROCEDURES: 1. Exploratory laparotomy. 2. Lysis of extensive adhesions. 3. Right hemicolectomy with ileocolic anastomosis. SURGEON: Jose Wooten M.D. HALL CLEANER: Dr. Hollingsworth. ANESTHESIA: General. ESTIMATED BLOOD LOSS: 200 mL. DRAINS: One 19 Celestine drain left. COMPLICATIONS: No complications. FINDINGS: A very large mass extending outside of the colon into the retroperitoneum in the area of the hepatic flexure. Also, extensive adhesions involving the entire omentum as well as pelvis including small bowel deep in the pelvis. Technically difficult and challenging case. DESCRIPTION OF PROCEDURE: The patient was taken to the operating room, prepped and draped in usual sterile fashion. Midline incision was made and abdomen entered. Upon entrance into the abdomen, extensive omental and intestinal adhesions were noted. These were slowly lysed until the cecum could be identified. The patient was placed in a steep Trendelenburg left lateral decubitus position. Cecum was palpated and no gross mass and this is noted in this area. However, when this colon was attempted to be mobilized, tumor was encountered what appeared to be tumor extrinsic to the colon and stuck to the retroperitoneum. This area was slowly dissected free and subsequently, a large mass was noted in the area of the hepatic flexure. Colon was then again slowly continued to be dissected free up to the middle colic vessel. Inferiorly, the distal ileum was also adhered deep into the pelvis with extensive adhesions. These were all slowly lysed without incident. Thus, the entire right colon was mobilized. All tumor was noted to be extravasated about the region. GIAs were used to transect the distal ileum and the colon distal to the mass. The entire specimen was removed en bloc and sent to pathology. The area was irrigated copiously and dried. Checked for hemostasis and noted to be dry. Ileotransverse colic anastomosis was then performed using a ROSETTE and a TA-[id number]. Anastomosis was carefully inspected and noted to have an excellent lumen. A good blood supply was also noted and no tension was noted on the anastomosis. The right colonic gutter was once again inspected for bleeding and noted to be dry. A 19 Celestine was left draining this area. The drain was brought through a separate stab incision and secured to skin with a 2-0 silk suture. The entire abdomen was then copiously irrigated and dried. I once again checked for hemostasis and noted to be dry. The fascia was then closed with interrupted #1 Vicryl sutures. The skin was loosely closed with maria t and packed with Telfa gladis soaked in Betadine. Fluffs and pressure dressing applied. Abdominal binder will also be placed. 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 Prognosis is poor. JOB# [id number] MEHRDAD/SELAM
[2018-08-01] MEDS: MAXIPIME/NS 2 GM/100 ML 2 GM/100 ML BAG IV SCH ×2 (14:26→22:14)
[2018-08-01] MEDS: NORMODYNE IV PRN (16:12)
[2018-08-01] MEDS: CATAPRES-TTS PATCH TD SCH (18:08)
[2018-08-01] MEDS ORDERED: TPN ADULT 1,999.92 ML IV SCH (20:00)
[2018-08-01] MEDS ORDERED: INTRALIPID 20% 250 ML IV SCH (20:00)
[2018-08-02] MEDS: VASOTEC IV SCH ×5 (01:18→19:54)
[2018-08-02] MEDS: FLAGYL 500 MG/100 ML 500 MG/100 ML BAG IV SCH ×3 (01:18→17:09)
[2018-08-02] MEDS: HumaLOG SUB-Q SCH ×5 (02:19→23:07)
--- NOTE | 2018-08-02 02:42 | XRay Report ---
FINAL REPORT PROCEDURE: XR CHEST 1V AP TECHNIQUE: Chest radiograph anteroposterior view. CPT 91143 HISTORY: follow up respiratory failure COMPARISON: 07/31/2018 FINDINGS: Heart: Normal. Mediastinum/Vessels: Normal. Lungs/Pleural space: There is a right perihilar infiltrate or atelectasis. There is no pleural effusi on or pneumothorax per. Bony thorax: No acute osseous abnormality. Life support devices: There is right-sided PICC line. The tip is in the superior vena cava. There is an endotracheal tube in the mid trachea. The NG tube is in the stomach.. IMPRESSION: Heart size is normal.. There is a right perihilar infiltrate or atelectasis. There is no pleural effusion or pneumothorax pe r. There is right-sided PICC line. The tip is in the superior vena cava. There is an endotracheal tube i n the mid trachea. The NG tube is in the stomach..
[2018-08-02 04:55] LABS: Hematocrit 33.3 % (30.3-42.9); Hemoglobin 10.5 gm/dl (10.1-14.3); Mean Corpuscular HGB Conc 32 % (30-34); Mean Corpuscular Volume 89 fl (79-97); Platelet Count 197 K/mm3 (140-440); Red Blood Count 3.73 M/mm3 (3.65-5.03)
[2018-08-02 05:12] LABS: Albumin 2.2 g/dL (3.9-5); Calcium 7.8 mg/dL (8.4-10.2)
[2018-08-02 05:23] LABS: Red Cell Distribution Width 20.1 % (13.2-15.2)
[2018-08-02] MEDS: DIPRIVAN 10 MG/ML 1,000 MG/100 ML BOTTLE IV SCH (06:18)
--- NOTE | 2018-08-02 06:49 | Progress Note ---
Assessment and Plan POD # 1 Pt intubated but appears comfortable. awake and alert. NG in place Abd soft, non tender. dressings dry minimal drainage from LEAH. urine output improving. 250 cc over last 8 hrs surgically stable Selected Entries 08/02/18 08/02/18 08/02/18 03:00 03:35 04:00 Temperature 100.7 F H Pulse Rate [ 94 H From Monitor] Blood Pressure 124/64 Laboratory Tests 08/02/18 08/02/18 08/02/18 04:26 04:26 05:47 WBC 20.9 H Hgb 10.5 Hct 33.3 POC ABG pH POC ABG pCO2 POC ABG pO2 POC ABG HCO3 POC ABG Total CO2 Sodium 133 L Potassium 3.8 Chloride 97.5 L Carbon Dioxide 23 BUN 48 H Creatinine 1.2 D POC Glucose 351 H 08/02/18 05:52 WBC Hgb Hct POC ABG pH 7.416 POC ABG pCO2 35.6 POC ABG pO2 74 L POC ABG HCO3 22.9 POC ABG Total CO2 24 Sodium Potassium Chloride Carbon Dioxide BUN Creatinine POC Glucose Objective Vital Signs - 12hr 08/01/18 08/01/18 08/01/18 19:00 19:46 20:00 Temperature 99.7 F H Pulse Rate 83 85 Pulse Rate [ Anterior Bilateral] Pulse Rate [ 87 From Monitor] Respiratory 19 19 Rate Respiratory Rate [Anterior Bilateral] Blood Pressure 131/63 130/66 O2 Sat by Pulse 97 99 Oximetry 08/01/18 08/01/18 08/01/18 20:11 21:00 21:02 Temperature Pulse Rate 89 86 87 Pulse Rate [ 89 Anterior Bilateral] Pulse Rate [ From Monitor] Respiratory 20 18 Rate Respiratory 23 Rate [Anterior Bilateral] Blood Pressure 130/66 117/69 140/73 O2 Sat by Pulse 99 98 98 Oximetry 08/01/18 08/01/18 08/01/18 22:00 23:00 23:06 Temperature 99.8 F H Pulse Rate 90 90 Pulse Rate [ Anterior Bilateral] Pulse Rate [ From Monitor] Respiratory 19 25 H Rate Respiratory Rate [Anterior Bilateral] Blood Pressure 125/66 131/70 O2 Sat by Pulse 99 98 Oximetry 08/02/18 08/02/18 08/02/18 00:00 00:52 01:00 Temperature Pulse Rate 101 H 95 H 94 H Pulse Rate [ Anterior Bilateral] Pulse Rate [ 93 H From Monitor] Respiratory 25 H 21 Rate Respiratory Rate [Anterior Bilateral] Blood Pressure 131/76 131/69 142/73 O2 Sat by Pulse 97 98 98 Oximetry 08/02/18 08/02/18 08/02/18 01:18 02:00 03:00 Temperature Pulse Rate 95 H 87 92 H Pulse Rate [ Anterior Bilateral] Pulse Rate [ From Monitor] Respiratory 18 12 Rate Respiratory Rate [Anterior Bilateral] Blood Pressure 142/73 132/61 124/64 O2 Sat by Pulse 97 98 Oximetry 08/02/18 08/02/18 08/02/18 03:35 04:00 05:00 Temperature 100.7 F H Pulse Rate 89 90 Pulse Rate [ Anterior Bilateral] Pulse Rate [ 94 H From Monitor] Respiratory 19 22 Rate Respiratory Rate [Anterior Bilateral] Blood Pressure 132/64 141/67 O2 Sat by Pulse 95 96 Oximetry 08/02/18 08/02/18 08/02/18 05:35 06:00 06:01 Temperature Pulse Rate 90 92 H 92 H Pulse Rate [ Anterior Bilateral] Pulse Rate [ From Monitor] Respiratory 21 Rate Respiratory Rate [Anterior Bilateral] Blood Pressure 144/67 144/69 144/69 O2 Sat by Pulse 95 95 Oximetry - Labs 08/02/18 04:26 08/02/18 04:26 Diabetes panel 08/02/18 Range/Units 04:26 Sodium 133 L (137-145) mmol/L Potassium 3.8 (3.6-5.0) mmol/L Chloride 97.5 L (98-107) mmol/L Carbon Dioxide 23 (22-30) mmol/L BUN 48 H (7-17) mg/dL Creatinine 1.2 D (0.7-1.2) mg/dL Glucose 347 H (65-100) mg/dL Calcium 7.8 L (8.4-10.2) mg/dL AST 19 (5-40) units/L ALT 11 (7-56) units/L Alkaline Phosphatase 55 (35-129) units/L Total Protein 5.4 L (6.3-8.2) g/dL Albumin 2.2 L (3.9-5) g/dL Calcium panel 08/02/18 Range/Units 04:26 Calcium 7.8 L (8.4-10.2) mg/dL Phosphorus 3.50 D (2.5-4.5) mg/dL Albumin 2.2 L (3.9-5) g/dL Pituitary panel 08/02/18 Range/Units 04:26 Sodium 133 L (137-145) mmol/L Potassium 3.8 (3.6-5.0) mmol/L Chloride 97.5 L (98-107) mmol/L Carbon Dioxide 23 (22-30) mmol/L BUN 48 H (7-17) mg/dL Creatinine 1.2 D (0.7-1.2) mg/dL Glucose 347 H (65-100) mg/dL Calcium 7.8 L (8.4-10.2) mg/dL Adrenal panel 08/02/18 Range/Units 04:26 Sodium 133 L (137-145) mmol/L Potassium 3.8 (3.6-5.0) mmol/L Chloride 97.5 L (98-107) mmol/L Carbon Dioxide 23 (22-30) mmol/L BUN 48 H (7-17) mg/dL Creatinine 1.2 D (0.7-1.2) mg/dL Glucose 347 H (65-100) mg/dL Calcium 7.8 L (8.4-10.2) mg/dL Total Bilirubin 0.30 (0.1-1.2) mg/dL AST 19 (5-40) units/L ALT 11 (7-56) units/L Alkaline Phosphatase 55 (35-129) units/L Total Protein 5.4 L (6.3-8.2) g/dL Albumin 2.2 L (3.9-5) g/dL
[2018-08-02 07:48] LABS: Basophils % (Manual) 0 % (0.0-1.8); Eosinophils % (Manual) 0 % (0.0-4.3); Total Cells Counted 100
[2018-08-02 07:49] LABS: Anisocytosis 1+; Ovalocytes Few; Platelet Estimate Consistent w Auto; Poikilocytosis 2+
[2018-08-02] MEDS: DUONEB *Not for PRN Use IH SCH ×3 (07:54→20:48)
[2018-08-02] MEDS: MORPHINE IV PRN ×3 (09:01→20:46)
[2018-08-02] MEDS: MAXIPIME/NS 2 GM/100 ML 2 GM/100 ML BAG IV SCH ×2 (10:08→22:13)
[2018-08-02] MEDS: PROTONIX IV SCH (10:09)
[2018-08-02] MEDS: LANTUS SUB-Q SCH (11:43)
--- NOTE | 2018-08-02 11:47 | Progress Note ---
Assessment and Plan 1. Extubate patient 2. Once extubated, transition back to IMCU 3. All others per surgery and primary team CCT 31 minutes. Subjective Date of service: 08/02/18 Principal diagnosis: Sepsis and Colitis Interval history: Successful surgery on yesterday. Anesthesia did not feel comfortable with extubation so kept intubated overnight secondary to extent of surgery and age. Objective Vital Signs - 12hr 08/02/18 08/02/18 08/02/18 00:00 00:52 01:00 Temperature Pulse Rate 101 H 95 H 94 H Pulse Rate [ Anterior Bilateral] Pulse Rate [ 93 H From Monitor] Respiratory 25 H 21 Rate Respiratory Rate [Anterior Bilateral] Blood Pressure 131/76 131/69 142/73 O2 Sat by Pulse 97 98 98 Oximetry 08/02/18 08/02/18 08/02/18 01:18 02:00 03:00 Temperature Pulse Rate 95 H 87 92 H Pulse Rate [ Anterior Bilateral] Pulse Rate [ From Monitor] Respiratory 18 12 Rate Respiratory Rate [Anterior Bilateral] Blood Pressure 142/73 132/61 124/64 O2 Sat by Pulse 97 98 Oximetry 08/02/18 08/02/18 08/02/18 03:35 04:00 05:00 Temperature 100.7 F H Pulse Rate 89 90 Pulse Rate [ Anterior Bilateral] Pulse Rate [ 94 H From Monitor] Respiratory 19 22 Rate Respiratory Rate [Anterior Bilateral] Blood Pressure 132/64 141/67 O2 Sat by Pulse 95 96 Oximetry 08/02/18 08/02/18 08/02/18 05:35 06:00 06:01 Temperature Pulse Rate 90 92 H 92 H Pulse Rate [ Anterior Bilateral] Pulse Rate [ From Monitor] Respiratory 21 Rate Respiratory Rate [Anterior Bilateral] Blood Pressure 144/67 144/69 144/69 O2 Sat by Pulse 95 95 Oximetry 08/02/18 08/02/18 08/02/18 07:00 07:48 07:51 Temperature Pulse Rate 92 H 96 H 97 H Pulse Rate [ Anterior Bilateral] Pulse Rate [ From Monitor] Respiratory 17 28 H Rate Respiratory Rate [Anterior Bilateral] Blood Pressure 142/74 129/78 129/78 O2 Sat by Pulse 97 96 96 Oximetry 08/02/18 08/02/18 08/02/18 07:54 08:00 08:08 Temperature Pulse Rate 95 H Pulse Rate [ 98 H 97 H Anterior Bilateral] Pulse Rate [ From Monitor] Respiratory 25 H Rate Respiratory 27 H 27 H Rate [Anterior Bilateral] Blood Pressure 124/83 O2 Sat by Pulse 97 Oximetry 08/02/18 08/02/18 08/02/18 09:00 09:54 11:38 Temperature Pulse Rate 102 H 99 H 102 H Pulse Rate [ Anterior Bilateral] Pulse Rate [ From Monitor] Respiratory 30 H 27 H Rate Respiratory Rate [Anterior Bilateral] Blood Pressure 124/83 150/76 157/74 O2 Sat by Pulse 95 95 Oximetry Constitutional: no acute distress Eyes: non-icteric Neck: supple Ascultation: Bilateral: wheezes (rare) Cardiovascular: regular rate and rhythm Gastrointestinal: normoactive bowel sounds Extremities: no cyanosis Neurologic: normal mental status CBC and BMP: 08/02/18 04:26 08/02/18 04:26 ABG, PT/INR, D-dimer: ABG POC ABG pH 7.409 (7.35-7.45) 08/02/18 09:56 POC ABG pCO2 38.5 (35-45) 08/02/18 09:56 POC ABG pO2 70 (80-105) L 08/02/18 09:56 POC ABG HCO3 24.3 08/02/18 09:56 POC ABG Total CO2 25 08/02/18 09:56 POC ABG O2 Sat 94 08/02/18 09:56 PT/INR, D-dimer PT 14.5 Sec. (12.2-14.9) 07/28/18 05:27 INR 1.09 (0.87-1.13) 07/28/18 05:27 Abnormal lab findings: Abnormal Labs 07/18/18 07/18/18 07/18/18 20:28 20:48 20:48 WBC 12.3 H RBC 3.47 L Hgb 9.1 L Hct 28.9 L MCH 26 L RDW 16.1 H Plt Count 473 H Lymph % (Auto) 5.4 L Smyth % (Auto) Lymph # 0.7 L Smyth # Seg Neutrophils % 86.5 H Seg Neuts % (Manual) Lymphocytes % (Manual) Seg Neutrophils # 10.7 H Seg Neutrophils # Man APTT POC ABG pO2 Sodium Potassium Chloride BUN Creatinine Glucose 108 H POC Glucose 109 H Calcium Phosphorus Magnesium C-Reactive Protein Total Protein Albumin 3.1 L Crossmatch 07/18/18 07/18/1819 20:48 23:12 02:50 WBC RBC 3.35 L Hgb 9.0 L Hct 27.9 L MCH 27 L RDW 15.8 H Plt Count Lymph % (Auto) Smyth % (Auto) Lymph # Smyth # Seg Neutrophils % Seg Neuts % (Manual) Lymphocytes % (Manual) Seg Neutrophils # Seg Neutrophils # Man APTT 23.2 L POC ABG pO2 Sodium Potassium Chloride BUN Creatinine Glucose POC Glucose 106 H Calcium Phosphorus Magnesium C-Reactive Protein Total Protein Albumin Crossmatch 07/19/18 07/19/18 07/19/18 02:50 08:00 11:46 WBC RBC Hgb Hct MCH RDW Plt Count Lymph % (Auto) Smyth % (Auto) Lymph # Smyth # Seg Neutrophils % Seg Neuts % (Manual) Lymphocytes % (Manual) Seg Neutrophils # Seg Neutrophils # Man APTT POC ABG pO2 Sodium 136 L Potassium Chloride BUN Creatinine Glucose 105 H POC Glucose 131 H 152 H Calcium Phosphorus Magnesium C-Reactive Protein Total Protein Albumin Crossmatch 07/19/18 07/19/18 07/19/18 13:46 15:34 20:42 WBC RBC Hgb Hct MCH RDW Plt Count Lymph % (Auto) Smyth % (Auto) Lymph # S[place]th # Seg Neutrophils % Seg Neuts % (Manual) Lymphocytes % (Manual) Seg Neutrophils # Seg Neutrophils # Man APTT POC ABG pO2 Sodium Potassium Chloride BUN Creatinine Glucose POC Glucose 152 H 182 H 187 H Calcium Phosphorus Magnesium C-Reactive Protein Total Protein Albumin Crossmatch 07/19/18 07/20/18 07/20/18 23:05 02:15 06:14 WBC RBC Hgb Hct MCH RDW Plt Count Lymph % (Auto) Smyth % (Auto) Lymph # Smyth # Seg Neutrophils % Seg Neuts % (Manual) Lymphocytes % (Manual) Seg Neutrophils # Seg Neutrophils # Man APTT POC ABG pO2 Sodium Potassium Chloride BUN Creatinine Glucose POC Glucose 133 H 154 H 137 H Calcium Phosphorus Magnesium C-Reactive Protein Total Protein Albumin Crossmatch 07/20/18 07/20/18 07/20/18 06:47 06:47 12:01 WBC 11.7 H RBC 3.51 L Hgb 9.2 L Hct 29.3 L MCH 26 L RDW 15.9 H Plt Count Lymph % (Auto) 12.0 L S[place]th % (Auto) Lymph # S[place]th # Seg Neutrophils % 80.8 H Seg Neuts % (Manual) Lymphocytes % (Manual) Seg Neutrophils # 9.4 H Seg Neutrophils # Man APTT POC ABG pO2 Sodium Potassium Chloride BUN Creatinine Glucose 126 H POC Glucose 157 H Calcium 8.3 L Phosphorus Magnesium C-Reactive Protein Total Protein Albumin 2.8 L Crossmatch 07/20/18 07/20/18 07/20/18 16:11 19:56 23:34 WBC RBC Hgb Hct MCH RDW Plt Count Lymph % (Auto) Smyth % (Auto) Lymph # S[place]th # Seg Neutrophils % Seg Neuts % (Manual) Lymphocytes % (Manual) Seg Neutrophils # Seg Neutrophils # Man APTT POC ABG pO2 Sodium Potassium Chloride BUN Creatinine Glucose POC Glucose 155 H 158 H 149 H Calcium Phosphorus Magnesium C-Reactive Protein Total Protein Albumin Crossmatch 07/21/18 07/21/18 07/21/18 04:16 08:11 11:15 WBC RBC Hgb Hct MCH RDW Plt Count Lymph % (Auto) Smyth % (Auto) Lymph # S[place]th # Seg Neutrophils % Seg Neuts % (Manual) Lymphocytes % (Manual) Seg Neutrophils # Seg Neutrophils # Man APTT POC ABG pO2 Sodium Potassium Chloride BUN Creatinine Glucose POC Glucose 127 H 142 H 159 H Calcium Phosphorus Magnesium C-Reactive Protein Total Protein Albumin Crossmatch 07/21/18 07/21/18 07/21/18 16:12 18:49 23:03 WBC RBC Hgb Hct MCH RDW Plt Count Lymph % (Auto) Smyth % (Auto) Lymph # S[place]th # Seg Neutrophils % Seg Neuts % (Manual) Lymphocytes % (Manual) Seg Neutrophils # Seg Neutrophils # Man APTT POC ABG pO2 Sodium Potassium Chloride BUN Creatinine Glucose POC Glucose 134 H 113 H 120 H Calcium Phosphorus Magnesium C-Reactive Protein Total Protein Albumin Crossmatch 07/22/18 07/22/18 07/22/18 05:24 08:09 11:42 WBC RBC Hgb Hct MCH RDW Plt Count Lymph % (Auto) Smyth % (Auto) Lymph # Smyth # Seg Neutrophils % Seg Neuts % (Manual) Lymphocytes % (Manual) Seg Neutrophils # Seg Neutrophils # Man APTT POC ABG pO2 Sodium Potassium Chloride BUN Creatinine Glucose POC Glucose 126 H 112 H 143 H Calcium Phosphorus Magnesium C-Reactive Protein Total Protein Albumin Crossmatch 07/22/18 07/22/18 07/22/18 13:47 16:26 22:48 WBC RBC 3.16 L Hgb 8.3 L Hct 26.5 L MCH 26 L RDW 16.6 H Plt Count Lymph % (Auto) 12.0 L Smyth % (Auto) Lymph # 1.1 L Smyth # Seg Neutrophils % 79.9 H Seg Neuts % (Manual) Lymphocytes % (Manual) Seg Neutrophils # Seg Neutrophils # Man APTT POC ABG pO2 Sodium Potassium Chloride BUN Creatinine Glucose POC Glucose 132 H 118 H Calcium Phosphorus Magnesium C-Reactive Protein Total Protein Albumin Crossmatch 07/23/18 07/23/18 07/23/18 05:01 05:39 05:39 WBC RBC 3.04 L Hgb 8.3 L Hct 25.6 L MCH 27 L RDW 16.7 H Plt Count Lymph % (Auto) 13.1 L Smyth % (Auto) 8.1 H Lymph # 1.0 L Smyth # Seg Neutrophils % 77.0 H Seg Neuts % (Manual) Lymphocytes % (Manual) Seg Neutrophils # Seg Neutrophils # Man APTT POC ABG pO2 Sodium Potassium Chloride BUN 22 H Creatinine Glucose 224 H POC Glucose 197 H Calcium 8.3 L Phosphorus 1.90 L Magnesium 1.60 L C-Reactive Protein Total Protein Albumin 2.8 L Crossmatch 07/23/18 07/23/18 07/23/18 07:37 12:10 15:41 WBC RBC Hgb Hct MCH RDW Plt Count Lymph % (Auto) Smyth % (Auto) Lymph # Smyth # Seg Neutrophils % Seg Neuts % (Manual) Lymphocytes % (Manual) Seg Neutrophils # Seg Neutrophils # Man APTT POC ABG pO2 Sodium Potassium Chloride BUN Creatinine Glucose POC Glucose 192 H 191 H 187 H Calcium Phosphorus Magnesium C-Reactive Protein Total Protein Albumin Crossmatch 07/23/18 07/24/18 07/24/18 23:12 03:12 04:34 WBC RBC Hgb Hct MCH RDW Plt Count Lymph % (Auto) Smyth % (Auto) Lymph # S[place]th # Seg Neutrophils % Seg Neuts % (Manual) Lymphocytes % (Manual) Seg Neutrophils # Seg Neutrophils # Man APTT POC ABG pO2 Sodium Potassium Chloride BUN 25 H Creatinine Glucose 191 H POC Glucose 231 H 224 H Calcium 8.3 L Phosphorus 1.60 L Magnesium 1.60 L C-Reactive Protein Total Protein Albumin Crossmatch 07/24/18 07/24/18 07/24/18 08:21 12:12 16:55 WBC RBC Hgb Hct MCH RDW Plt Count Lymph % (Auto) Smyth % (Auto) Lymph # S[place]th # Seg Neutrophils % Seg Neuts % (Manual) Lymphocytes % (Manual) Seg Neutrophils # Seg Neutrophils # Man APTT POC ABG pO2 Sodium Potassium Chloride BUN Creatinine Glucose POC Glucose 187 H 167 H 192 H Calcium Phosphorus Magnesium C-Reactive Protein Total Protein Albumin Crossmatch 07/24/18 07/24/18 07/25/18 20:30 23:38 02:44 WBC RBC Hgb Hct MCH RDW Plt Count Lymph % (Auto) Smyth % (Auto) Lymph # S[place]th # Seg Neutrophils % Seg Neuts % (Manual) Lymphocytes % (Manual) Seg Neutrophils # Seg Neutrophils # Man APTT POC ABG pO2 Sodium Potassium Chloride BUN Creatinine Glucose POC Glucose 192 H 181 H 196 H Calcium Phosphorus Magnesium C-Reactive Protein Total Protein Albumin Crossmatch 07/25/18 07/25/18 07/25/18 03:58 03:58 06:35 WBC RBC Hgb Hct MCH RDW Plt Count Lymph % (Auto) Smyth % (Auto) Lymph # S[place]th # Seg Neutrophils % Seg Neuts % (Manual) Lymphocytes % (Manual) Seg Neutrophils # Seg Neutrophils # Man APTT POC ABG pO2 Sodium Potassium Chloride BUN 23 H Creatinine Glucose 197 H POC Glucose 203 H Calcium Phosphorus 2.30 L D Magnesium C-Reactive Protein 4.30 H Total Protein Albumin Crossmatch 07/25/18 07/25/18 07/25/18 12:04 16:33 19:50 WBC RBC Hgb Hct MCH RDW Plt Count Lymph % (Auto) Smyth % (Auto) Lymph # S[place]th # Seg Neutrophils % Seg Neuts % (Manual) Lymphocytes % (Manual) Seg Neutrophils # Seg Neutrophils # Man APTT POC ABG pO2 Sodium Potassium Chloride BUN Creatinine Glucose POC Glucose 153 H 204 H 213 H Calcium Phosphorus Magnesium C-Reactive Protein Total Protein Albumin Crossmatch 07/25/18 07/26/18 07/26/18 22:52 02:38 04:13 WBC RBC Hgb Hct MCH RDW Plt Count Lymph % (Auto) Smyth % (Auto) Lymph # S[place]th # Seg Neutrophils % Seg Neuts % (Manual) Lymphocytes % (Manual) Seg Neutrophils # Seg Neutrophils # Man APTT POC ABG pO2 Sodium Potassium Chloride BUN 22 H Creatinine Glucose 180 H POC Glucose 182 H 169 H Calcium 8.3 L Phosphorus Magnesium C-Reactive Protein Total Protein Albumin Crossmatch 07/26/18 07/26/18 07/27/18 06:37 22:45 02:44 WBC RBC Hgb Hct MCH RDW Plt Count Lymph % (Auto) Smyth % (Auto) Lymph # S[place]th # Seg Neutrophils % Seg Neuts % (Manual) Lymphocytes % (Manual) Seg Neutrophils # Seg Neutrophils # Man APTT POC ABG pO2 Sodium Potassium Chloride BUN 24 H Creatinine Glucose 195 H POC Glucose 156 H 237 H Calcium Phosphorus Magnesium C-Reactive Protein Total Protein Albumin Crossmatch 07/27/18 07/27/18 07/27/18 02:51 06:27 10:45 WBC RBC Hgb Hct MCH RDW Plt Count Lymph % (Auto) Smyth % (Auto) Lymph # S[place]th # Seg Neutrophils % Seg Neuts % (Manual) Lymphocytes % (Manual) Seg Neutrophils # Seg Neutrophils # Man APTT POC ABG pO2 Sodium Potassium Chloride BUN Creatinine Glucose POC Glucose 166 H 212 H 177 H Calcium Phosphorus Magnesium C-Reactive Protein Total Protein Albumin Crossmatch 07/27/18 07/28/18 07/28/18 16:14 00:12 05:06 WBC RBC Hgb Hct MCH RDW Plt Count Lymph % (Auto) Smyth % (Auto) Lymph # S[place]th # Seg Neutrophils % Seg Neuts % (Manual) Lymphocytes % (Manual) Seg Neutrophils # Seg Neutrophils # Man APTT POC ABG pO2 Sodium Potassium Chloride BUN Creatinine Glucose POC Glucose 225 H 220 H 214 H Calcium Phosphorus Magnesium C-Reactive Protein Total Protein Albumin Crossmatch 07/28/18 07/28/18 07/28/18 05:27 08:09 11:05 WBC RBC Hgb Hct MCH RDW Plt Count Lymph % (Auto) Smyth % (Auto) Lymph # S[place]th # Seg Neutrophils % Seg Neuts % (Manual) Lymphocytes % (Manual) Seg Neutrophils # Seg Neutrophils # Man APTT POC ABG pO2 Sodium Potassium Chloride BUN 25 H Creatinine 0.6 L Glucose 213 H POC Glucose 228 H 258 H Calcium Phosphorus Magnesium C-Reactive Protein Total Protein Albumin Crossmatch 07/28/18 07/28/18 07/28/18 12:19 17:40 17:40 WBC RBC 2.87 L Hgb 7.7 L Hct 24.9 L MCH 27 L RDW 18.0 H Plt Count Lymph % (Auto) Smyth % (Auto) Lymph # [place]th # Seg Neutrophils % Seg Neuts % (Manual) Lymphocytes % (Manual) Seg Neutrophils # Seg Neutrophils # Man APTT POC ABG pO2 Sodium Potassium Chloride BUN Creatinine Glucose POC Glucose 209 H Calcium Phosphorus Magnesium C-Reactive Protein Total Protein Albumin Crossmatch See Detail 07/28/18 07/28/18 07/29/18 20:00 23:48 02:29 WBC RBC Hgb Hct MCH RDW Plt Count Lymph % (Auto) Smyth % (Auto) Lymph # S[place]th # Seg Neutrophils % Seg Neuts % (Manual) Lymphocytes % (Manual) Seg Neutrophils # Seg Neutrophils # Man APTT POC ABG pO2 Sodium Potassium Chloride BUN Creatinine Glucose POC Glucose 192 H 211 H 217 H Calcium Phosphorus Magnesium C-Reactive Protein Total Protein Albumin Crossmatch 07/29/18 07/29/18 07/29/18 05:26 05:26 11:33 WBC RBC 3.20 L Hgb 8.5 L Hct 26.8 L MCH 27 L RDW 17.5 H Plt Count Lymph % (Auto) Smyth % (Auto) 10.8 H Lymph # Smyth # 1.2 H Seg Neutrophils % 70.8 H Seg Neuts % (Manual) Lymphocytes % (Manual) Seg Neutrophils # Seg Neutrophils # Man APTT POC ABG pO2 Sodium Potassium 5.3 H Chloride BUN 25 H Creatinine 0.6 L Glucose 227 H POC Glucose 202 H Calcium Phosphorus Magnesium C-Reactive Protein Total Protein Albumin Crossmatch 07/29/18 07/29/18 07/30/18 18:35 23:01 04:27 WBC RBC Hgb Hct MCH RDW Plt Count Lymph % (Auto) Smyth % (Auto) Lymph # S[place]th # Seg Neutrophils % Seg Neuts % (Manual) Lymphocytes % (Manual) Seg Neutrophils # Seg Neutrophils # Man APTT POC ABG pO2 Sodium Potassium Chloride BUN Creatinine Glucose POC Glucose 194 H 218 H 176 H Calcium Phosphorus Magnesium C-Reactive Protein Total Protein Albumin Crossmatch 07/30/18 07/30/18 07/30/18 10:12 11:00 11:00 WBC RBC Hgb Hct MCH RDW 17.9 H Plt Count Lymph % (Auto) 12.3 L Smyth % (Auto) 10.2 H Lymph # Smyth # 1.0 H Seg Neutrophils % 75.4 H Seg Neuts % (Manual) Lymphocytes % (Manual) Seg Neutrophils # Seg Neutrophils # Man APTT POC ABG pO2 Sodium Potassium Chloride BUN 22 H Creatinine Glucose 269 H POC Glucose 265 H Calcium Phosphorus Magnesium C-Reactive Protein Total Protein Albumin Crossmatch 07/30/18 07/30/18 07/30/18 15:11 17:21 21:47 WBC RBC Hgb Hct MCH RDW Plt Count Lymph % (Auto) Smyth % (Auto) Lymph # S[place]th # Seg Neutrophils % Seg Neuts % (Manual) Lymphocytes % (Manual) Seg Neutrophils # Seg Neutrophils # Man APTT POC ABG pO2 Sodium Potassium Chloride BUN Creatinine Glucose POC Glucose 208 H 177 H 146 H Calcium Phosphorus Magnesium C-Reactive Protein Total Protein Albumin Crossmatch 07/31/18 07/31/18 07/31/18 02:13 03:56 10:15 WBC RBC Hgb Hct MCH RDW Plt Count Lymph % (Auto) S[place]th % (Auto) Lymph # [place] # Seg Neutrophils % Seg Neuts % (Manual) Lymphocytes % (Manual) Seg Neutrophils # Seg Neutrophils # Man APTT POC ABG pO2 Sodium Potassium Chloride BUN 26 H Creatinine 0.6 L Glucose 201 H POC Glucose 208 H 216 H Calcium Phosphorus Magnesium C-Reactive Protein Total Protein Albumin Crossmatch 07/31/18 07/31/18 08/01/18 15:42 22:34 03:09 WBC RBC Hgb Hct MCH RDW Plt Count Lymph % (Auto) S[place]th % (Auto) Lymph # S[place]th # Seg Neutrophils % Seg Neuts % (Manual) Lymphocytes % (Manual) Seg Neutrophils # Seg Neutrophils # Man APTT POC ABG pO2 Sodium Potassium Chloride BUN Creatinine Glucose POC Glucose 205 H 236 H 253 H Calcium Phosphorus Magnesium C-Reactive Protein Total Protein Albumin Crossmatch 08/01/18 08/01/18 08/01/18 04:19 06:14 07:18 WBC RBC Hgb Hct MCH RDW Plt Count Lymph % (Auto) S[place]th % (Auto) Lymph # [place] # Seg Neutrophils % Seg Neuts % (Manual) Lymphocytes % (Manual) Seg Neutrophils # Seg Neutrophils # Man APTT POC ABG pO2 Sodium Potassium 3.3 L Chloride BUN 26 H Creatinine 0.5 L Glucose 238 H POC Glucose 257 H Calcium 7.1 L D Phosphorus Magnesium C-Reactive Protein Total Protein Albumin Crossmatch See Detail 08/01/18 08/01/18 08/01/18 11:41 12:13 16:28 WBC RBC Hgb Hct MCH RDW Plt Count Lymph % (Auto) Smyth % (Auto) Lymph # S[place]th # Seg Neutrophils % Seg Neuts % (Manual) Lymphocytes % (Manual) Seg Neutrophils # Seg Neutrophils # Man APTT POC ABG pO2 339 H Sodium Potassium Chloride BUN Creatinine Glucose POC Glucose 184 H 305 H Calcium Phosphorus Magnesium C-Reactive Protein Total Protein Albumin Crossmatch 08/01/18 08/01/18 08/02/18 18:25 21:09 02:01 WBC RBC Hgb Hct MCH RDW Plt Count Lymph % (Auto) Smyth % (Auto) Lymph # [place] # Seg Neutrophils % Seg Neuts % (Manual) Lymphocytes % (Manual) Seg Neutrophils # Seg Neutrophils # Man APTT POC ABG pO2 Sodium Potassium Chloride BUN Creatinine Glucose POC Glucose 338 H 328 H 350 H Calcium Phosphorus Magnesium C-Reactive Protein Total Protein Albumin Crossmatch 08/02/18 08/02/18 08/02/18 04:26 04:26 05:47 WBC 20.9 H RBC Hgb Hct MCH RDW 20.1 H Plt Count Lymph % (Auto) Smyth % (Auto) Lymph # S[place]th # Seg Neutrophils % Seg Neuts % (Manual) 90.0 H Lymphocytes % (Manual) 7.0 L Seg Neutrophils # Seg Neutrophils # Man 18.8 H APTT POC ABG pO2 Sodium 133 L Potassium Chloride 97.5 L BUN 48 H Creatinine Glucose 347 H POC Glucose 351 H Calcium 7.8 L Phosphorus Magnesium C-Reactive Protein Total Protein 5.4 L Albumin 2.2 L Crossmatch 08/02/18 08/02/18 08/02/18 05:52 09:56 10:02 WBC RBC Hgb Hct MCH RDW Plt Count Lymph % (Auto) S[place]th % (Auto) Lymph # S[place] # Seg Neutrophils % Seg Neuts % (Manual) Lymphocytes % (Manual) Seg Neutrophils # Seg Neutrophils # Man APTT POC ABG pO2 74 L 70 L Sodium Potassium Chloride BUN Creatinine Glucose POC Glucose 351 H Calcium Phosphorus Magnesium C-Reactive Protein Total Protein Albumin Crossmatch
[2018-08-02] MEDS ORDERED: SUBLIMAZE ONE (12:32)
--- NOTE | 2018-08-02 14:05 | Progress Note ---
Assessment and Plan Cultures: 07/19/2018 blood culture: no growth 07/22/2018 Blood culture: no growth Assessment: 87-year-old female with diabetes mellitus, congestive heart failure, HTN admitted with: 1) Sepsis: resolved; likely from intra-abdominal source. 2) Intra-abdominal phlegmon/abscess with ?perforation versus necrotic tumor: slight better, barium enema with presumed mass - repeat CT 07/25 showed the masslike lesion in the ascending colon appears stable in size and contour. There is no evidence for obstruction or leakage of contrast. There are scattered diverticula in the proximal colon. Mild infla mmatory changes adjacent to this masslike lesion have decreased by 20% since the previous exam. It is unclear if this represents a colon mass or is associated with diverticulitis. - CEA elevated at 5.6 - barium enema showed ascending colon mass, favor a colon mass over an inf lammatory process such as perforated diverticulitis with abscess. - s/p surgery on 08/01/2018. Detailed operative note pending. WBC elevated today, post operative. 3) Acute encephalopathy: metabolic- resolved 4) DM-2 - stable Recs: - continue Cefepime and Flagyl D15 today - Gen Surgery following, on TPN - WBC elevated, probably post operative stress. Continue abx, monitor WBC and fever Jerald Lopez MD [facility] C: [phone] O: [phone] F: [phone] Subjective Date of service: 08/02/18 Principal diagnosis: Sepsis and Colitis Interval history: No fever. Extubated. Post operative Day 1 from surgery yesterday. Objective - Exam Narrative Exam: Physical Exam: Constitutional: Alert, cooperative. No acute distress Head, Ears, Nose: Normocephalic, atraumatic. External ears, nose normal Eyes: Conjunctivae/corneas clear. No icterus. No ptosis. Neck: Supple, no meningeal signs Cardiovascular: S1, S2 normal, no murmur heard Respiratory: Good air entry, clear to auscultation bilaterally GI: distended, bowel sounds absent, drain +. Grace + Musculoskeletal: No pedal edema, no cyanosis. Skin: No rash or abscess Hem/Lymphatic: No palpable cervical or supraclavicular nodes. No lymphangitis Psych: no agitation Neurological: Awake, alert. - Constitutional Vitals: Vital Signs Temp Pulse Resp BP Pulse Ox 100.7 F H 103 H 28 H 157/74 93 08/02/18 03:35 08/02/18 12:00 08/02/18 12:00 08/02/18 12:00 08/02/18 12:00 Temperature -Last 24 Hours Temperature 100.7 F Temperature 99.8 F Temperature 99.7 F Temperature 98.3 F Temperature 98.5 F - Labs CBC & Chem 7: 08/02/18 04:26 08/02/18 04:26 Labs: Abnormal lab results 08/01/18 08/01/18 08/01/18 Range/Units 16:28 18:25 21:09 WBC (4.5-11.0) K/mm3 RDW (13.2-15.2) % Seg Neuts % (Manual) (40.0-70.0) % Lymphocytes % (Manual) (13.4-35.0) % Seg Neutrophils # Man (1.8-7.7) K/mm3 POC ABG pO2 (80-105) Sodium (137-145) mmol/L Chloride (98-107) mmol/L BUN (7-17) mg/dL Glucose (65-100) mg/dL POC Glucose 305 H 338 H 328 H (70-105) Calcium (8.4-10.2) mg/dL Total Protein (6.3-8.2) g/dL Albumin (3.9-5) g/dL 08/02/18 08/02/18 08/02/18 Range/Units 02:01 04:26 04:26 WBC 20.9 H (4.5-11.0) K/mm3 RDW 20.1 H (13.2-15.2) % Seg Neuts % (Manual) 90.0 H (40.0-70.0) % Lymphocytes % (Manual) 7.0 L (13.4-35.0) % Seg Neutrophils # Man 18.8 H (1.8-7.7) K/mm3 POC ABG pO2 (80-105) Sodium 133 L (137-145) mmol/L Chloride 97.5 L (98-107) mmol/L BUN 48 H (7-17) mg/dL Glucose 347 H (65-100) mg/dL POC Glucose 350 H (70-105) Calcium 7.8 L (8.4-10.2) mg/dL Total Protein 5.4 L (6.3-8.2) g/dL Albumin 2.2 L (3.9-5) g/dL 08/02/18 08/02/18 08/02/18 Range/Units 05:47 05:52 09:56 WBC (4.5-11.0) K/mm3 RDW (13.2-15.2) % Seg Neuts % (Manual) (40.0-70.0) % Lymphocytes % (Manual) (13.4-35.0) % Seg Neutrophils # Man (1.8-7.7) K/mm3 POC ABG pO2 74 L 70 L (80-105) Sodium (137-145) mmol/L Chloride (98-107) mmol/L BUN (7-17) mg/dL Glucose (65-100) mg/dL POC Glucose 351 H (70-105) Calcium (8.4-10.2) mg/dL Total Protein (6.3-8.2) g/dL Albumin (3.9-5) g/dL 08/02/18 Range/Units 10:02 WBC (4.5-11.0) K/mm3 RDW (13.2-15.2) % Seg Neuts % (Manual) (40.0-70.0) % Lymphocytes % (Manual) (13.4-35.0) % Seg Neutrophils # Man (1.8-7.7) K/mm3 POC ABG pO2 (80-105) Sodium (137-145) mmol/L Chloride (98-107) mmol/L BUN (7-17) mg/dL Glucose (65-100) mg/dL POC Glucose 351 H (70-105) Calcium (8.4-10.2) mg/dL Total Protein (6.3-8.2) g/dL Albumin (3.9-5) g/dL - Imaging and cardiology Chest x-ray: report reviewed, image reviewed (stable findings.)
--- NOTE | 2018-08-02 16:36 | Progress Note ---
Assessment and Plan Assessment and plan: Patient is 87 yo woman with a history of DM, CHF and hypertension who presents to [facility] ED via EMS with AMS, falling at home, feeling hot, blood glucose was in the 40s and she was given oral glucose by EMS prior to arrival. Associated with falling is diaphoresis, lose of appetite, n/v, sob x 1 day. This is patient 3rd fall at home. She did complain of right upper quadrant, sharp intermittent severe, aggravated by certain movement, relieved by different positions. * CTAP with IV contrast IMPRESSION: Extensive inflammatory changes involving the cecum and proximal ascending colon extending posteriorly with pericolonic stranding. Diagnostic consideration would include appendicitis with p erforation presuming the patient still has her appendix. The other possibility is severe diverticulitis with probable perforation. Extensive colonic diverticulosis. Uncomplicated cysts in both kidneys. Hysterectomy. Multilevel disc degeneration in the lumbar spine. Incidental note is made of a crescent- shaped area of mural thrombus at the thoracoabdominal junction involving the aorta. A remote dissection cannot entirely be excluded. * CTA chest pains IMPRESSION: 1. No evidence of pulmonary embolism. 2. Mild cardiomegaly 3. Lingular subsegmental atelectasis versus parenchymal scar 4. 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 No evidence of acute infarct or intracra nial hemorrhage. 2. White matter lucency consistent with chronic microvascular ischemic disease. * pCXR IMPRESSION: Subpleural effusion and cardiomegaly * 07/25/[address] abd/pelvis without contrast FINDINGS: Small layering pleural effusions have developed measuring up to 1 cm in thickness. Heart size is stable at the upper limits of normal. The visualized lung bases are adequately aerated. The masslike lesion in the ascending colon appears stable in size and contour. There is no evidence for obstruction or leakage of contrast. There are scattered diverticula in the proximal colon. Mild inflammatory changes adjacent to this masslike lesion have decreased by 20% since the previous exam. It is unclear if this represents a colon mass or is associated with diverticulitis. I favor a colon mass. The liver, biliary system, pancreas, spleen, kidneys and adrenal glands remain unremarkable. The pelvic viscera are within normal limits. Hysterectomy changes are noted. IMPRESSION: Inflammatory changes adjacent to the right colon mass or diverticulitis has improved slightly. Overall, no overwhelming change. No new acute process. New small layering pleural effusions. 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 Follow-up on current diagnosis of bowel perfora tion. Overnight uneventful. Patient denies any chest pain, shortness breath, nausea/vomiting or severe headaches. Imaging, nursing note, chart, labs and old chart reviewed. Discussed with patient. Hospitalist Physical - Physical exam Narrative exam: Gen: WDWN, NAD, Awake, Alert, Orientated x 1 HEENT: NCAT, EOMI, PERRL, OP Clear Neck: supple, no adenopathy, no thyromegaly, no JVD CVS/Heart: RRR, normal S1S2, pulses present bilaterally Chest/Lungs: diminished bs bilateral, Symmetrical chest expansion, good air entry bilaterally GI/Abdomen: soft diffusely tender, good bowel sounds, no guarding or rebound /Bladder: no suprapubic tenderness, no CVA or paraspinal tenderness Extermity/Skin: no c/c/e, no obvious rash MSK: FROM x 4 Neuro: CN 2-12 grossly intact, no new focal deficits Psych: calm - Constitutional Vitals: Temp Pulse Resp BP Pulse Ox 98.4 F 97 H 22 134/68 98 08/02/18 12:00 08/02/18 15:24 08/02/18 15:24 08/02/18 14:00 08/02/18 14:00 General appearance: Present: no acute distress, well-nourished Results - Labs CBC & Chem 7: 08/02/18 04:26 08/02/18 04:26 Labs: Laboratory Last Values WBC 20.9 K/mm3 (4.5-11.0) H 08/02/18 04:26 RBC 3.73 M/mm3 (3.65-5.03) 08/02/18 04:26 Hgb 10.5 gm/dl (10.1-14.3) 08/02/18 04:26 Hct 33.3 % (30.3-42.9) 08/02/18 04:26 MCV 89 fl (79-97) 08/02/18 04:26 MCH 28 pg (28-32) 08/02/18 04:26 MCHC 32 % (30-34) 08/02/18 04:26 RDW 20.1 % (13.2-15.2) H 08/02/18 04:26 Plt Count 197 K/mm3 (140-440) 08/02/18 04:26 Lymph % (Auto) 12.3 % (13.4-35.0) L 07/30/18 11:00 [place] % (Auto) 10.2 % (0.0-7.3) H 07/30/18 11:00 Eos % (Auto) 1.6 % (0.0-4.3) 07/30/18 11:00 Baso % (Auto) 0.5 % (0.0-1.8) 07/30/18 11:00 Lymph # 1.2 K/mm3 (1.2-5.4) 07/30/18 11:00 [place]borne # 1.0 K/mm3 (0.0-0.8) H 07/30/18 11:00 Eos # 0.2 K/mm3 (0.0-0.4) 07/30/18 11:00 Baso # 0.0 K/mm3 (0.0-0.1) 07/30/18 11:00 Add Manual Diff Complete 08/02/18 04:26 Total Counted 100 08/02/18 04:26 Seg Neutrophils % 75.4 % (40.0-70.0) H 07/30/18 11:00 Seg Neuts % (Manual) 90.0 % (40.0-70.0) H 08/02/18 04:26 Band Neutrophils % 0 % 08/02/18 04:26 Lymphocytes % (Manual) 7.0 % (13.4-35.0) L 08/02/18 04:26 Reactive Lymphs % (Man) 0 % 08/02/18 04:26 Monocytes % (Manual) 3.0 % (0.0-7.3) 08/02/18 04:26 Eosinophils % (Manual) 0 % (0.0-4.3) 08/02/18 04:26 Basophils % (Manual) 0 % (0.0-1.8) 08/02/18 04:26 Metamyelocytes % 0 % 08/02/18 04:26 Myelocytes % 0 % 08/02/18 04:26 Promyelocytes % 0 % 08/02/18 04:26 Blast Cells % 0 % 08/02/18 04:26 Nucleated RBC % Not Reportable 08/02/18 04:26 Seg Neutrophils # 7.4 K/mm3 (1.8-7.7) 07/30/18 11:00 Seg Neutrophils # Man 18.8 K/mm3 (1.8-7.7) H 08/02/18 04:26 Band Neutrophils # 0.0 K/mm3 08/02/18 04:26 Lymphocytes # (Manual) 1.5 K/mm3 (1.2-5.4) 08/02/18 04:26 Abs React Lymphs (Man) 0.0 K/mm3 08/02/18 04:26 Monocytes # (Manual) 0.6 K/mm3 (0.0-0.8) 08/02/18 04:26 Eosinophils # (Manual) 0.0 K/mm3 (0.0-0.4) 08/02/18 04:26 Basophils # (Manual) 0.0 K/mm3 (0.0-0.1) 08/02/18 04:26 Metamyelocytes # 0.0 K/mm3 08/02/18 04:26 Myelocytes # 0.0 K/mm3 08/02/18 04:26 Promyelocytes # 0.0 K/mm3 08/02/18 04:26 Blast Cells # 0.0 K/mm3 08/02/18 04:26 WBC Morphology Not Reportable 08/02/18 04:26 Hypersegmented Neuts Not Reportable 08/02/18 04:26 Hyposegmented Neuts Not Reportable 08/02/18 04:26 Hypogranular Neuts Not Reportable 08/02/18 04:26 Smudge Cells Not Reportable 08/02/18 04:26 Toxic Granulation Not Reportable 08/02/18 04:26 Toxic Vacuolation Not Reportable 08/02/18 04:26 Dohle Bodies Not Reportable 08/02/18 04:26 Pelger-Huet Anomaly Not Reportable 08/02/18 04:26 Richard Rods Not Reportable 08/02/18 04:26 Platelet Estimate Consistent w auto 08/02/18 04:26 Clumped Platelets Not Reportable 08/02/18 04:26 Plt Clumps, EDTA Not Reportable 08/02/18 04:26 Large Platelets Not Reportable 08/02/18 04:26 Giant Platelets Not Reportable 08/02/18 04:26 Platelet Satelliting Not Reportable 08/02/18 04:26 Plt Morphology Comment Not Reportable 08/02/18 04:26 RBC Morphology Not Reportable 08/02/18 04:26 Dimorphic RBCs Not Reportable 08/02/18 04:26 Polychromasia Not Reportable 08/02/18 04:26 Hypochromasia Not Reportable 08/02/18 04:26 Poikilocytosis 2+ 08/02/18 04:26 Anisocytosis 1+ 08/02/18 04:26 Microcytosis Not Reportable 08/02/18 04:26 Macrocytosis Not Reportable 08/02/18 04:26 Spherocytes Not Reportable 08/02/18 04:26 Pappenheimer Bodies Not Reportable 08/02/18 04:26 Sickle Cells Not Reportable 08/02/18 04:26 Target Cells Not Reportable 08/02/18 04:26 Tear Drop Cells Not Reportable 08/02/18 04:26 Ovalocytes Few 08/02/18 04:26 Helmet Cells Not Reportable 08/02/18 04:26 [place] Bodies Not Reportable 08/02/18 04:26 [place] Rings Not Reportable 08/02/18 04:26 Betzy Cells Not Reportable 08/02/18 04:26 Bite Cells Not Reportable 08/02/18 04:26 Crenated Cell Not Reportable 08/02/18 04:26 Elliptocytes Not Reportable 08/02/18 04:26 Acanthocytes (Spur) Not Reportable 08/02/18 04:26 Rouleaux Not Reportable 08/02/18 04:26 Hemoglobin C Crystals Not Reportable 08/02/18 04:26 Schistocytes Not Reportable 08/02/18 04:26 Malaria parasites Not Reportable 08/02/18 04:26 Michi Bodies Not Reportable 08/02/18 04:26 Hem Pathologist Commnt No 08/02/18 04:26 PT 14.5 Sec. (12.2-14.9) 07/28/18 05:27 INR 1.09 (0.87-1.13) 07/28/18 05:27 APTT 23.2 Sec. (24.2-36.6) L 07/18/18 20:48 POC ABG pH 7.409 (7.35-7.45) 08/02/18 09:56 POC ABG pCO2 38.5 (35-45) 08/02/18 09:56 POC ABG pO2 70 (80-105) L 08/02/18 09:56 POC ABG HCO3 24.3 08/02/18 09:56 POC ABG Total CO2 25 08/02/18 09:56 POC ABG O2 Sat 94 08/02/18 09:56 POC ABG Base Excess 0 08/02/18 09:56 FiO2 40 % 08/02/18 09:56 Sodium 133 mmol/L (137-145) L 08/02/18 04:26 Potassium 3.8 mmol/L (3.6-5.0) 08/02/18 04:26 Chloride 97.5 mmol/L (98-107) L 08/02/18 04:26 Carbon Dioxide 23 mmol/L (22-30) 08/02/18 04:26 Anion Gap 16 mmol/L 08/02/18 04:26 BUN 48 mg/dL (7-17) H 08/02/18 04:26 Creatinine 1.2 mg/dL (0.7-1.2) D 08/02/18 04:26 Estimated GFR 52 ml/min 08/02/18 04:26 BUN/Creatinine Ratio 40 % 08/02/18 04:26 Glucose 347 mg/dL (65-100) H 08/02/18 04:26 POC Glucose 250 (70-105) H 08/02/18 16:34 Lactic Acid 1.10 mmol/L (0.7-2.0) 07/19/18 17:04 Calcium 7.8 mg/dL (8.4-10.2) L 08/02/18 04:26 Phosphorus 3.50 mg/dL (2.5-4.5) D 08/02/18 04:26 Magnesium 2.10 mg/dL (1.7-2.3) 08/02/18 04:26 Total Bilirubin 0.30 mg/dL (0.1-1.2) 08/02/18 04:26 AST 19 units/L (5-40) 08/02/18 04:26 ALT 11 units/L (7-56) 08/02/18 04:26 Alkaline Phosphatase 55 units/L (35-129) 08/02/18 04:26 Total Creatine Kinase 48 units/L (30-135) 07/18/18 20:48 CK-MB (CK-2) < 1.0 ng/mL (0.0-4.0) 07/18/18 20:48 CK-MB (CK-2) Rel Index 2.0 (0-4) 07/18/18 20:48 Troponin T 0.025 ng/mL (0.00-0.029) 07/18/18 20:48 C-Reactive Protein 4.30 mg/dL (0.00-1.30) H 07/25/18 03:58 NT-Pro-B Natriuret Pep 462.4 pg/mL (0-900) 07/18/18 20:48 Total Protein 5.4 g/dL (6.3-8.2) L 08/02/18 04:26 Albumin 2.2 g/dL (3.9-5) L 08/02/18 04:26 Albumin/Globulin Ratio 0.7 % 08/02/18 04:26 Carcinoembryonic Ag See scanned result 07/22/18 13:47 Urine Color Yellow (Yellow) 07/18/18 21:49 Urine Turbidity Clear (Clear) 07/18/18 21:49 Urine pH 5.0 (5.0-7.0) 07/18/18 21:49 Ur Specific [place] 1.019 (1.003-1.030) 07/18/18 21:49 Urine Protein <15 mg/dl mg/dL (Negative) 07/18/18 21:49 Urine Glucose (UA) Neg mg/dL (Negative) 07/18/18 21:49 Urine Ketones Neg mg/dL (Negative) 07/18/18 21:49 Urine Blood Neg (Negative) 07/18/18 21:49 Urine Nitrite Neg (Negative) 07/18/18 21:49 Urine Bilirubin Neg (Negative) 07/18/18 21:49 Urine Urobilinogen 4.0 mg/dL (<2.0) 07/18/18 21:49 Ur Leukocyte Esterase Neg (Negative) 07/18/18 21:49 Urine WBC (Auto) 2.0 /HPF (0.0-6.0) 07/18/18 21:49 Urine RBC (Auto) < 1.0 /HPF (0.0-6.0) 07/18/18 21:49 U Epithel Cells (Auto) 3.0 /HPF (0-13.0) 07/18/18 21:49 Urine Mucus Few /HPF 07/18/18 21:49 Blood Type B POSITIVE 08/01/18 07:18 Antibody Screen Negative 08/01/18 07:18 Crossmatch See Detail 08/01/18 07:18 Nutrition/Malnutrition Assess - Dietary Evaluation Nutrition/Malnutrition Findings: Nutrition Notes Start: 07/22/18 14:00 Freq: Status: Active Protocol: Document 08/02/18 13:21 CP (Rec: 08/02/18 13:52 CP [id number]) Co-Sign 08/02/18 13:21 LP Nutrition Notes Initial or Follow up Reassessment Current Diagnosis Diabetes Sepsis Hypertension Heart Failure Other Pertinent Diagnosis Stage IV CA s/p exp lap with ( R) colectomy Current Diet CPN at 83.33mL/hr Labs/Tests Na 133 Cl 97.5 BUN 48 Glu 347 Pro 5.5 Pertinent Medications Reviewed Height 5 ft 5 in Weight 110.9 kg [place] Body Weight (lbs) 125.0 BMI 40.6 Subjective/Other Information Day 11 CPN. CPN infusing at goal rate. Pt was extubated. Pt given long-acting insulin for elevated BG levels as discussed in rounds. Percent of energy/protein needs met: 100%/100% Burn Absent Trauma Absent #1 Nutrition Diagnosis Altered GI function Diagnosis Progress(for reassessment Continues documentation) Is patient on ventilator? No Is Patient Ambulatory and/or Out of Bed No REE-([place]-St. Jeor-confined to bed) [phone] Additional Notes Energy needs 65-70% [place]: 2839-0634 kcal/day Pro needs 2g/kg IBW: 114g/day Nutrition Intervention Change Diet Order: CPN Nutrition Support: Continue CPN at 83.33mL/hr: 200 mEq Na, 100%/0% chloride/ acetate. Osmolality: 1266, MTV, MTE Kcal 1,221 Protein (gm) 114 Carbohydrates (gm) 225 Fat (gm) 0 Fluid (mL) 2,000 Fiber (gm) 0 Goal #1 PN to meet 65-70% energy and at least 80% pro needs Anticipated Discharge Needs: Unable to identify at this time Follow-Up By: 08/03/18 Additional Comments Labs in am: BMP, Mg, Phos
[2018-08-02] MEDS ORDERED: TPN ADULT 1,999.92 ML IV SCH (20:00)
[2018-08-03] MEDS: VASOTEC IV SCH ×4 (00:26→18:41)
[2018-08-03] MEDS: HumaLOG SUB-Q SCH ×6 (00:27→21:59)
[2018-08-03] MEDS: MORPHINE IV PRN ×4 (00:34→21:17)
[2018-08-03] MEDS: FLAGYL 500 MG/100 ML 500 MG/100 ML BAG IV SCH ×2 (02:57→10:51)
[2018-08-03 05:32] LABS: Basophils % (Auto) 0.2 % (0.0-1.8); Eosinophils # (Auto) 0.1 K/mm3 (0.0-0.4); Eosinophils % (Auto) 0.6 % (0.0-4.3); Hematocrit 30.3 % (30.3-42.9); Hemoglobin 9.6 gm/dl (10.1-14.3); Lymphocytes # (Auto) 1.3 K/mm3 (1.2-5.4); Lymphocytes % (Auto) 7.9 % (13.4-35.0); Mean Corpuscular HGB Conc 32 % (30-34); Mean Corpuscular Volume 88 fl (79-97); Monocytes # (Auto) 1.8 K/mm3 (0.0-0.8); Monocytes % (Auto) 10.8 % (0.0-7.3); Platelet Count 175 K/mm3 (140-440); Red Blood Count 3.43 M/mm3 (3.65-5.03); Red Cell Distribution Width 20.2 % (13.2-15.2)
[2018-08-03 05:47] LABS: Albumin 2.5 g/dL (3.9-5); Calcium 7.9 mg/dL (8.4-10.2)
[2018-08-03] MEDS: PROTONIX IV SCH (10:50)
[2018-08-03] MEDS: LANTUS SUB-Q SCH (10:51)
--- NOTE | 2018-08-03 11:13 | Progress Note ---
Assessment and Plan Cultures: 07/19/2018 blood culture: no growth 07/22/2018 Blood culture: no growth Assessment: 87-year-old female with diabetes mellitus, congestive heart failure, HTN admitted with: 1) Sepsis secondary to intra-abdominal phlegmon/abscess with ?perforation versus necrotic tumor: - s/p surgery on 08/01/2018. Detailed operative note pending. - has been on IV Cefepime and Flagyl x 15 days - will switch to IV zosyn today, given worsening renal function and high risk of neurotoxicity from Cefepime in this setting (renal failure, elderly patient) 2) Acute renal failure: creatinine worsening. Renally dose abx. 3) Acute encephalopathy: will avoid Cefepime. 4) DM-2 - stable Recs: - discontinued Cefepime and Flagyl - started renally adjusted IV Zosyn - Gen Surgery following, on TPN - WBC elevated, probably post operative stress - Continue abx, monitor WBC and fever Will follow along. Please call with questions. d/w Dr. Gonzalez. Jerald Lopez MD [facility] C: [phone] O: [phone] F: [phone] Subjective Date of service: 08/03/18 Principal diagnosis: Sepsis and Colitis Interval history: Low grade temp yesterday, otherwise afebrile. No BM yet. No complaints. Discussed with RN. Objective - Exam Narrative Exam: Physical Exam: Constitutional: Alert, cooperative. No acute distress. NG suction + Head, Ears, Nose: Normocephalic, atraumatic. External ears, nose normal Eyes: Conjunctivae/corneas clear. No icterus. No ptosis. Neck: Supple, no meningeal signs Cardiovascular: S1, S2 normal, no murmur heard Respiratory: Good air entry, clear to auscultation bilaterally GI: distended, bowel sounds absent, drain + with scant output. Grace + Musculoskeletal: No pedal edema, no cyanosis. Skin: No rash or abscess Hem/Lymphatic: No palpable cervical or supraclavicular nodes. No lymphangitis Psych: no agitation Neurological: Awake, alert. - Constitutional Vitals: Vital Signs Temp Pulse Resp BP Pulse Ox 98.1 F 95 H 20 141/63 96 08/03/18 08:56 08/03/18 06:12 08/03/18 06:00 08/03/18 06:12 08/03/18 06:00 Temperature -Last 24 Hours Temperature 98.1 F Temperature 98.6 F Temperature 98.2 F Temperature 98.2 F Temperature 98.4 F Temperature 98.4 F - Labs CBC & Chem 7: 08/03/18 04:42 08/03/18 04:42 Labs: Abnormal lab results 08/02/18 08/02/18 08/03/18 Range/Units 16:34 22:28 03:13 WBC (4.5-11.0) K/mm3 RBC (3.65-5.03) M/mm3 Hgb (10.1-14.3) gm/dl RDW (13.2-15.2) % Lymph % (Auto) (13.4-35.0) % Garza % (Auto) (0.0-7.3) % Garza # (0.0-0.8) K/mm3 Seg Neutrophils % (40.0-70.0) % Seg Neutrophils # (1.8-7.7) K/mm3 BUN (7-17) mg/dL Creatinine (0.7-1.2) mg/dL Glucose (65-100) mg/dL POC Glucose 250 H 175 H 189 H (70-105) Calcium (8.4-10.2) mg/dL Phosphorus (2.5-4.5) mg/dL Magnesium (1.7-2.3) mg/dL Total Protein (6.3-8.2) g/dL Albumin (3.9-5) g/dL 08/03/18 08/03/18 08/03/18 Range/Units 04:42 04:42 04:42 WBC 16.5 H (4.5-11.0) K/mm3 RBC 3.43 L (3.65-5.03) M/mm3 Hgb 9.6 L (10.1-14.3) gm/dl RDW 20.2 H (13.2-15.2) % Lymph % (Auto) 7.9 L (13.4-35.0) % Garza % (Auto) 10.8 H (0.0-7.3) % Garza # 1.8 H (0.0-0.8) K/mm3 Seg Neutrophils % 80.5 H (40.0-70.0) % Seg Neutrophils # 13.3 H (1.8-7.7) K/mm3 BUN 69 H (7-17) mg/dL Creatinine 2.0 H D (0.7-1.2) mg/dL Glucose 163 H (65-100) mg/dL POC Glucose (70-105) Calcium 7.9 L (8.4-10.2) mg/dL Phosphorus 6.80 H D (2.5-4.5) mg/dL Magnesium 2.40 H (1.7-2.3) mg/dL Total Protein 5.5 L (6.3-8.2) g/dL Albumin 2.5 L (3.9-5) g/dL 08/03/18 08/03/18 08/03/18 Range/Units 06:21 08:34 10:16 WBC (4.5-11.0) K/mm3 RBC (3.65-5.03) M/mm3 Hgb (10.1-14.3) gm/dl RDW (13.2-15.2) % Lymph % (Auto) (13.4-35.0) % Garza % (Auto) (0.0-7.3) % Garza # (0.0-0.8) K/mm3 Seg Neutrophils % (40.0-70.0) % Seg Neutrophils # (1.8-7.7) K/mm3 BUN (7-17) mg/dL Creatinine (0.7-1.2) mg/dL Glucose (65-100) mg/dL POC Glucose 163 H 129 H 134 H (70-105) Calcium (8.4-10.2) mg/dL Phosphorus (2.5-4.5) mg/dL Magnesium (1.7-2.3) mg/dL Total Protein (6.3-8.2) g/dL Albumin (3.9-5) g/dL
--- NOTE | 2018-08-03 11:46 | Progress Note ---
Assessment and Plan Assessment and plan: Patient is 87 yo woman with a history of DM, CHF and hypertension who presents to [facility] ED via EMS with AMS, falling at home, feeling hot, blood glucose was in the 40s and she was given oral glucose by EMS prior to arrival. Associated with falling is diaphoresis, lose of appetite, n/v, sob x 1 day. This is patient 3rd fall at home. She did complain of right upper quadrant, sharp intermittent severe, aggravated by certain movement, relieved by different positions. * CTAP with IV contrast IMPRESSION: Extensive inflammatory changes involving the cecum and proximal ascending colon extending posteriorly with pericolonic stranding. Diagnostic consideration would include appendicitis with p erforation presuming the patient still has her appendix. The other possibility is severe diverticulitis with probable perforation. Extensive colonic diverticulosis. Uncomplicated cysts in both kidneys. Hysterectomy. Multilevel disc degeneration in the lumbar spine. Incidental note is made of a crescent- shaped area of mural thrombus at the thoracoabdominal junction involving the aorta. A remote dissection cannot entirely be excluded. * CTA chest pains IMPRESSION: 1. No evidence of pulmonary embolism. 2. Mild cardiomegaly 3. Lingular subsegmental atelectasis versus parenchymal scar 4. 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 No evidence of acute infarct or intracra nial hemorrhage. 2. White matter lucency consistent with chronic microvascular ischemic disease. * pCXR IMPRESSION: Subpleural effusion and cardiomegaly * 07/25/[address] abd/pelvis without contrast FINDINGS: Small layering pleural effusions have developed measuring up to 1 cm in thickness. Heart size is stable at the upper limits of normal. The visualized lung bases are adequately aerated. The masslike lesion in the ascending colon appears stable in size and contour. There is no evidence for obstruction or leakage of contrast. There are scattered diverticula in the proximal colon. Mild inflammatory changes adjacent to this masslike lesion have decreased by 20% since the previous exam. It is unclear if this represents a colon mass or is associated with diverticulitis. I favor a colon mass. The liver, biliary system, pancreas, spleen, kidneys and adrenal glands remain unremarkable. The pelvic viscera are within normal limits. Hysterectomy changes are noted. IMPRESSION: Inflammatory changes adjacent to the right colon mass or diverticulitis has improved slightly. Overall, no overwhelming change. No new acute process. New small layering pleural effusions. 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 Follow-up on current diagnosis of bowel perforation. Overnight uneventful. Patient denies any chest pain, shortness breath, nausea/vomiting or severe headaches. Imaging, nursing note, chart, labs and old chart reviewed. Discussed with patient. Hospitalist Physical - Physical exam Narrative exam: Gen: WDWN, NAD, Awake, Alert, Orientated x 1 HEENT: NCAT, EOMI, PERRL, OP Clear Neck: supple, no adenopathy, no thyromegaly, no JVD CVS/Heart: RRR, normal S1S2, pulses present bilaterally Chest/Lungs: diminished bs bilateral, Symmetrical chest expansion, good air entry bilaterally GI/Abdomen: soft diffusely tender, good bowel sounds, no guarding or rebound /Bladder: no suprapubic tenderness, no CVA or paraspinal tenderness Extermity/Skin: no c/c/e, no obvious rash MSK: FROM x 4 Neuro: CN 2-12 grossly intact, no new focal deficits Psych: calm - Constitutional Vitals: Temp Pulse Resp BP Pulse Ox 98.1 F 95 H 20 141/63 96 08/03/18 08:56 08/03/18 06:12 08/03/18 06:00 08/03/18 06:12 08/03/18 06:00 General appearance: Present: no acute distress, well-nourished Results - Labs CBC & Chem 7: 08/03/18 04:42 08/03/18 04:42 Labs: Laboratory Last Values WBC 16.5 K/mm3 (4.5-11.0) H 08/03/18 04:42 RBC 3.43 M/mm3 (3.65-5.03) L 08/03/18 04:42 Hgb 9.6 gm/dl (10.1-14.3) L 08/03/18 04:42 Hct 30.3 % (30.3-42.9) 08/03/18 04:42 MCV 88 fl (79-97) 08/03/18 04:42 MCH 28 pg (28-32) 08/03/18 04:42 MCHC 32 % (30-34) 08/03/18 04:42 RDW 20.2 % (13.2-15.2) H 08/03/18 04:42 Plt Count 175 K/mm3 (140-440) 08/03/18 04:42 Lymph % (Auto) 7.9 % (13.4-35.0) L 08/03/18 04:42 [place] % (Auto) 10.8 % (0.0-7.3) H 08/03/18 04:42 Eos % (Auto) 0.6 % (0.0-4.3) 08/03/18 04:42 Baso % (Auto) 0.2 % (0.0-1.8) 08/03/18 04:42 Lymph # 1.3 K/mm3 (1.2-5.4) 08/03/18 04:42 [place] # 1.8 K/mm3 (0.0-0.8) H 08/03/18 04:42 Eos # 0.1 K/mm3 (0.0-0.4) 08/03/18 04:42 Baso # 0.0 K/mm3 (0.0-0.1) 08/03/18 04:42 Add Manual Diff Complete 08/02/18 04:26 Total Counted 100 08/02/18 04:26 Seg Neutrophils % 80.5 % (40.0-70.0) H 08/03/18 04:42 Seg Neuts % (Manual) 90.0 % (40.0-70.0) H 08/02/18 04:26 Band Neutrophils % 0 % 08/02/18 04:26 Lymphocytes % (Manual) 7.0 % (13.4-35.0) L 08/02/18 04:26 Reactive Lymphs % (Man) 0 % 08/02/18 04:26 Monocytes % (Manual) 3.0 % (0.0-7.3) 08/02/18 04:26 Eosinophils % (Manual) 0 % (0.0-4.3) 08/02/18 04:26 Basophils % (Manual) 0 % (0.0-1.8) 08/02/18 04:26 Metamyelocytes % 0 % 08/02/18 04:26 Myelocytes % 0 % 08/02/18 04:26 Promyelocytes % 0 % 08/02/18 04:26 Blast Cells % 0 % 08/02/18 04:26 Nucleated RBC % Not Reportable 08/02/18 04:26 Seg Neutrophils # 13.3 K/mm3 (1.8-7.7) H 08/03/18 04:42 Seg Neutrophils # Man 18.8 K/mm3 (1.8-7.7) H 08/02/18 04:26 Band Neutrophils # 0.0 K/mm3 08/02/18 04:26 Lymphocytes # (Manual) 1.5 K/mm3 (1.2-5.4) 08/02/18 04:26 Abs React Lymphs (Man) 0.0 K/mm3 08/02/18 04:26 Monocytes # (Manual) 0.6 K/mm3 (0.0-0.8) 08/02/18 04:26 Eosinophils # (Manual) 0.0 K/mm3 (0.0-0.4) 08/02/18 04:26 Basophils # (Manual) 0.0 K/mm3 (0.0-0.1) 08/02/18 04:26 Metamyelocytes # 0.0 K/mm3 08/02/18 04:26 Myelocytes # 0.0 K/mm3 08/02/18 04:26 Promyelocytes # 0.0 K/mm3 08/02/18 04:26 Blast Cells # 0.0 K/mm3 08/02/18 04:26 WBC Morphology Not Reportable 08/02/18 04:26 Hypersegmented Neuts Not Reportable 08/02/18 04:26 Hyposegmented Neuts Not Reportable 08/02/18 04:26 Hypogranular Neuts Not Reportable 08/02/18 04:26 Smudge Cells Not Reportable 08/02/18 04:26 Toxic Granulation Not Reportable 08/02/18 04:26 Toxic Vacuolation Not Reportable 08/02/18 04:26 Dohle Bodies Not Reportable 08/02/18 04:26 Pelger-Huet Anomaly Not Reportable 08/02/18 04:26 Richard Rods Not Reportable 08/02/18 04:26 Platelet Estimate Consistent w auto 08/02/18 04:26 Clumped Platelets Not Reportable 08/02/18 04:26 Plt Clumps, EDTA Not Reportable 08/02/18 04:26 Large Platelets Not Reportable 08/02/18 04:26 Giant Platelets Not Reportable 08/02/18 04:26 Platelet Satelliting Not Reportable 08/02/18 04:26 Plt Morphology Comment Not Reportable 08/02/18 04:26 RBC Morphology Not Reportable 08/02/18 04:26 Dimorphic RBCs Not Reportable 08/02/18 04:26 Polychromasia Not Reportable 08/02/18 04:26 Hypochromasia Not Reportable 08/02/18 04:26 Poikilocytosis 2+ 08/02/18 04:26 Anisocytosis 1+ 08/02/18 04:26 Microcytosis Not Reportable 08/02/18 04:26 Macrocytosis Not Reportable 08/02/18 04:26 Spherocytes Not Reportable 08/02/18 04:26 Pappenheimer Bodies Not Reportable 08/02/18 04:26 Sickle Cells Not Reportable 08/02/18 04:26 Target Cells Not Reportable 08/02/18 04:26 Tear Drop Cells Not Reportable 08/02/18 04:26 Ovalocytes Few 08/02/18 04:26 Helmet Cells Not Reportable 08/02/18 04:26 [place] Bodies Not Reportable 08/02/18 04:26 [place] Rings Not Reportable 08/02/18 04:26 [place] Cells Not Reportable 08/02/18 04:26 Bite Cells Not Reportable 08/02/18 04:26 Crenated Cell Not Reportable 08/02/18 04:26 Elliptocytes Not Reportable 08/02/18 04:26 Acanthocytes (Spur) Not Reportable 08/02/18 04:26 Rouleaux Not Reportable 08/02/18 04:26 Hemoglobin C Crystals Not Reportable 08/02/18 04:26 Schistocytes Not Reportable 08/02/18 04:26 Malaria parasites Not Reportable 08/02/18 04:26 Michi Bodies Not Reportable 08/02/18 04:26 Hem Pathologist Commnt No 08/02/18 04:26 PT 14.5 Sec. (12.2-14.9) 07/28/18 05:27 INR 1.09 (0.87-1.13) 07/28/18 05:27 APTT 23.2 Sec. (24.2-36.6) L 07/18/18 20:48 POC ABG pH 7.409 (7.35-7.45) 08/02/18 09:56 POC ABG pCO2 38.5 (35-45) 08/02/18 09:56 POC ABG pO2 70 (80-105) L 08/02/18 09:56 POC ABG HCO3 24.3 08/02/18 09:56 POC ABG Total CO2 25 08/02/18 09:56 POC ABG O2 Sat 94 08/02/18 09:56 POC ABG Base Excess 0 08/02/18 09:56 FiO2 40 % 08/02/18 09:56 Sodium 141 mmol/L (137-145) D 08/03/18 04:42 Potassium 3.8 mmol/L (3.6-5.0) 08/03/18 04:42 Chloride 102.0 mmol/L (98-107) 08/03/18 04:42 Carbon Dioxide 22 mmol/L (22-30) 08/03/18 04:42 Anion Gap 21 mmol/L 08/03/18 04:42 BUN 69 mg/dL (7-17) H 08/03/18 04:42 Creatinine 2.0 mg/dL (0.7-1.2) H D 08/03/18 04:42 Estimated GFR 29 ml/min 08/03/18 04:42 BUN/Creatinine Ratio 35 % 08/03/18 04:42 Glucose 163 mg/dL (65-100) H 08/03/18 04:42 POC Glucose 134 (70-105) H 08/03/18 10:16 Lactic Acid 1.10 mmol/L (0.7-2.0) 07/19/18 17:04 Calcium 7.9 mg/dL (8.4-10.2) L 08/03/18 04:42 Phosphorus 6.80 mg/dL (2.5-4.5) H D 08/03/18 04:42 Magnesium 2.40 mg/dL (1.7-2.3) H 08/03/18 04:42 Total Bilirubin 0.30 mg/dL (0.1-1.2) 08/03/18 04:42 AST 24 units/L (5-40) 08/03/18 04:42 ALT 10 units/L (7-56) 08/03/18 04:42 Alkaline Phosphatase 55 units/L (35-129) 08/03/18 04:42 Total Creatine Kinase 48 units/L (30-135) 07/18/18 20:48 CK-MB (CK-2) < 1.0 ng/mL (0.0-4.0) 07/18/18 20:48 CK-MB (CK-2) Rel Index 2.0 (0-4) 07/18/18 20:48 Troponin T 0.025 ng/mL (0.00-0.029) 07/18/18 20:48 C-Reactive Protein 4.30 mg/dL (0.00-1.30) H 07/25/18 03:58 NT-Pro-B Natriuret Pep 462.4 pg/mL (0-900) 07/18/18 20:48 Total Protein 5.5 g/dL (6.3-8.2) L 08/03/18 04:42 Albumin 2.5 g/dL (3.9-5) L 08/03/18 04:42 Albumin/Globulin Ratio 0.8 % 08/03/18 04:42 Carcinoembryonic Ag See scanned result 07/22/18 13:47 Urine Color Yellow (Yellow) 07/18/18 21:49 Urine Turbidity Clear (Clear) 07/18/18 21:49 Urine pH 5.0 (5.0-7.0) 07/18/18 21:49 Ur Specific [place] 1.019 (1.003-1.030) 07/18/18 21:49 Urine Protein <15 mg/dl mg/dL (Negative) 07/18/18 21:49 Urine Glucose (UA) Neg mg/dL (Negative) 07/18/18 21:49 Urine Ketones Neg mg/dL (Negative) 07/18/18 21:49 Urine Blood Neg (Negative) 07/18/18 21:49 Urine Nitrite Neg (Negative) 07/18/18 21:49 Urine Bilirubin Neg (Negative) 07/18/18 21:49 Urine Urobilinogen 4.0 mg/dL (<2.0) 07/18/18 21:49 Ur Leukocyte Esterase Neg (Negative) 07/18/18 21:49 Urine WBC (Auto) 2.0 /HPF (0.0-6.0) 07/18/18 21:49 Urine RBC (Auto) < 1.0 /HPF (0.0-6.0) 07/18/18 21:49 U Epithel Cells (Auto) 3.0 /HPF (0-13.0) 07/18/18 21:49 Urine Mucus Few /HPF 07/18/18 21:49 Blood Type B POSITIVE 08/01/18 07:18 Antibody Screen Negative 08/01/18 07:18 Crossmatch See Detail 08/01/18 07:18 Nutrition/Malnutrition Assess - Dietary Evaluation Nutrition/Malnutrition Findings: Nutrition Notes Start: 07/22/18 14:00 Freq: Status: Active Protocol: Document 08/03/18 10:58 CP (Rec: 08/03/18 11:31 CP [id number]) Co-Sign 08/03/18 10:58 OL Nutrition Notes Initial or Follow up Reassessment Current Diagnosis Diabetes Sepsis Hypertension Heart Failure Other Pertinent Diagnosis Stage IV CA s/p exp lap with ( R) colectomy Current Diet CPN at 83.33mL/hr Labs/Tests Phos 6.8 Mg 2.4 Glucose 163 BUN 169 Cr 2.0 Pertinent Medications Lantus Humalog Height 5 ft 5 in Weight 110.9 kg [place] Body Weight (lbs) 125.0 BMI 40.6 Subjective/Other Information Day 12 CPN infusing at goal rate. Percent of energy/protein needs met: 85%/100% Burn Absent Trauma Absent #1 Nutrition Diagnosis Altered GI function Diagnosis Progress(for reassessment Continues documentation) Is patient on ventilator? No Is Patient Ambulatory and/or Out of Bed No REE-([place]-confined to bed) 1866.780 Kcal/Kg value to use for calculation 13 Approximate Energy Requirements Using 1442 kcal/Kg Additional Notes PRO needs 1-1.2g/kg adjBW: 84- 101g/day (AdjBW 84kg) Fluid needs 1ml/kcal Nutrition Intervention Change Diet Order: CPN Nutrition Support: CPN at 83.33 mL/hr: osmolarity 1261, 0 mmols phos, 6 mEq Mg, MTV, Lipids Kcal 1,721 Protein (gm) 114 Carbohydrates (gm) 225 Fat (gm) 50 Fluid (mL) 2,250 Fiber (gm) 0 Goal #1 PN to meet 65-70% energy and at least 80% pro needs Anticipated Discharge Needs: Unable to identify at this time Follow-Up By: 08/04/18 Additional Comments Labs in am: BMP, Mg, Phos
--- NOTE | 2018-08-03 12:44 | Progress Note ---
Assessment and Plan POD #2 Pt extubated yesterday. doing well. no compl Abd soft, dressings dry low u/o. rising BUN & cr.. dehydration? surgically stable monitor h/h awaiting path OOB as iron begin local care renal eval Selected Entries 08/03/18 08/03/18 08:56 12:00 Temperature 98.1 F Pulse Rate 89 Respiratory 17 Rate Blood Pressure 142/58 Laboratory Tests 08/03/18 08/03/18 04:42 04:42 WBC 16.5 H Hgb 9.6 L Hct 30.3 Sodium 141 D Potassium 3.8 Chloride 102.0 Carbon Dioxide 22 BUN 69 H Creatinine 2.0 H D Objective Vital Signs - 12hr 08/03/18 08/03/18 08/03/18 01:00 02:00 03:00 Temperature Pulse Rate 95 H 93 H 95 H Pulse Rate [ From Monitor] Respiratory 18 17 22 Rate Blood Pressure 115/59 131/54 131/54 O2 Sat by Pulse 96 95 97 Oximetry 08/03/18 08/03/18 08/03/18 04:00 05:01 05:47 Temperature 98.6 F Pulse Rate 98 H 89 Pulse Rate [ 92 H From Monitor] Respiratory 22 17 21 Rate Blood Pressure 131/54 129/57 O2 Sat by Pulse 97 96 Oximetry 08/03/18 08/03/18 08/03/18 06:00 06:12 07:00 Temperature Pulse Rate 95 H 95 H 97 H Pulse Rate [ From Monitor] Respiratory 20 20 Rate Blood Pressure 141/63 141/63 143/67 O2 Sat by Pulse 96 96 Oximetry 08/03/18 08/03/18 08/03/18 08:00 08:56 09:00 Temperature 98.1 F Pulse Rate 96 H 94 H Pulse Rate [ 95 H From Monitor] Respiratory 21 20 Rate Blood Pressure 139/65 149/66 O2 Sat by Pulse 95 94 Oximetry 08/03/18 08/03/18 08/03/18 10:00 11:00 12:00 Temperature Pulse Rate 91 H 92 H 89 Pulse Rate [ 91 H From Monitor] Respiratory 17 20 17 Rate Blood Pressure 150/61 143/63 142/58 O2 Sat by Pulse 92 93 92 Oximetry - Labs 08/03/18 04:42 08/03/18 04:42 Diabetes panel 08/03/18 Range/Units 04:42 Sodium 141 D (137-145) mmol/L Potassium 3.8 (3.6-5.0) mmol/L Chloride 102.0 (98-107) mmol/L Carbon Dioxide 22 (22-30) mmol/L BUN 69 H (7-17) mg/dL Creatinine 2.0 H D (0.7-1.2) mg/dL Glucose 163 H (65-100) mg/dL Calcium 7.9 L (8.4-10.2) mg/dL AST 24 (5-40) units/L ALT 10 (7-56) units/L Alkaline Phosphatase 55 (35-129) units/L Total Protein 5.5 L (6.3-8.2) g/dL Albumin 2.5 L (3.9-5) g/dL Calcium panel 08/03/18 08/03/18 Range/Units 04:42 04:42 Calcium 7.9 L (8.4-10.2) mg/dL Phosphorus 6.80 H D (2.5-4.5) mg/dL Albumin 2.5 L (3.9-5) g/dL Pituitary panel 08/03/18 Range/Units 04:42 Sodium 141 D (137-145) mmol/L Potassium 3.8 (3.6-5.0) mmol/L Chloride 102.0 (98-107) mmol/L Carbon Dioxide 22 (22-30) mmol/L BUN 69 H (7-17) mg/dL Creatinine 2.0 H D (0.7-1.2) mg/dL Glucose 163 H (65-100) mg/dL Calcium 7.9 L (8.4-10.2) mg/dL Adrenal panel 08/03/18 Range/Units 04:42 Sodium 141 D (137-145) mmol/L Potassium 3.8 (3.6-5.0) mmol/L Chloride 102.0 (98-107) mmol/L Carbon Dioxide 22 (22-30) mmol/L BUN 69 H (7-17) mg/dL Creatinine 2.0 H D (0.7-1.2) mg/dL Glucose 163 H (65-100) mg/dL Calcium 7.9 L (8.4-10.2) mg/dL Total Bilirubin 0.30 (0.1-1.2) mg/dL AST 24 (5-40) units/L ALT 10 (7-56) units/L Alkaline Phosphatase 55 (35-129) units/L Total Protein 5.5 L (6.3-8.2) g/dL Albumin 2.5 L (3.9-5) g/dL
[2018-08-03] MEDS: MAXIPIME/NS 2 GM/100 ML 2 GM/100 ML BAG IV SCH (13:11)
[2018-08-03] MEDS: ZOSYN/NS 2.25 GM/50ML 2.25 GM/50 ML BAG IV SCH ×2 (18:37→21:17)
[2018-08-03] MEDS ORDERED: TPN ADULT 1,999.92 ML IV SCH (20:00)
[2018-08-03] MEDS ORDERED: INTRALIPID 20% 250 ML IV SCH (20:00)
[2018-08-03] MEDS: DUONEB *Not for PRN Use IH SCH ×2 (21:58→21:59)
[2018-08-04] MEDS: HumaLOG SUB-Q SCH ×7 (00:26→21:46)
[2018-08-04] MEDS: VASOTEC IV SCH ×3 (00:28→11:07)
[2018-08-04] MEDS: MORPHINE IV PRN ×2 (02:14→20:08)
[2018-08-04 04:43] LABS: Basophils % (Auto) 0.4 % (0.0-1.8); Eosinophils # (Auto) 0.1 K/mm3 (0.0-0.4); Hematocrit 25.7 % (30.3-42.9); Hemoglobin 8.5 gm/dl (10.1-14.3); Lymphocytes # (Auto) 0.9 K/mm3 (1.2-5.4); Lymphocytes % (Auto) 7.7 % (13.4-35.0); Mean Corpuscular HGB Conc 33 % (30-34); Mean Corpuscular Volume 88 fl (79-97); Monocytes # (Auto) 1.1 K/mm3 (0.0-0.8); Monocytes % (Auto) 10.3 % (0.0-7.3); Platelet Count 166 K/mm3 (140-440); Red Blood Count 2.93 M/mm3 (3.65-5.03)
[2018-08-04 04:45] LABS: Red Cell Distribution Width 20.5 % (13.2-15.2)
[2018-08-04 04:57] LABS: Calcium 7.7 mg/dL (8.4-10.2)
[2018-08-04] MEDS: ZOSYN/NS 2.25 GM/50ML 2.25 GM/50 ML BAG IV SCH ×3 (06:02→21:46)
[2018-08-04] MEDS: DUONEB *Not for PRN Use IH SCH ×3 (08:18→20:11)
--- NOTE | 2018-08-04 08:43 | Consultation ---
History of Present Illness - History of Present Illness Thank you for the consultation ! Patient was evaluated today My assessment and plan are as follows; ReAcute kidney injury worsening renal function patient baseline creatinine as of June 2018 was 1.0 lowest creatinine 0.5 as of 08/01/2018 current creatinine 2.3 CAT scan obtained on July 25 does not show any evidence of obstruction Patient did receive a CAT scan with contrast on 07/19/2018, as well as a CAT scan on 07/18/2018 Likely etiology of renal failure appears to be very likely contrast-induced nephropathy, ATN, rule out other causes, possible drug-induced interstitial nephritis, renal failure She likely had limited renal reserve due to her aging Will order labs ultrasonogram and follow-up no emergent indication for renal replacement therapy at this time, In the outpatient setting patient was taking furosemide losartan as well as naproxen thank you for the consultation Renal prognosis remains very guarded, poor given her age and comorbidities. Respiratory failure currently extubated, Diabetes mellitus type 2, Admitted with perforated bowel, suspected colon cancer, prognosis guarded to poor Multiple other medical problems including hypertensive urgency, history of falls, sepsis, metabolic encephalopathy and mural thrombus in aorta Patient is critically ill given her age and comorbidities her mortality risk is highnal prognosis remains guarded at this time We will continue to follow and make recommendations from renal standpoint. Thank you for the consultation Author: Roland Shields M.D. [facility], [address] [place] [address] Tel; [phone] Source of information: From patient History of present illness Patient is a 88-year-old female who has been admitted here with multiple health issues, consultation is placed for management of renal failure patient's baseline creatinine was around 1.0 in June 2018 and current creatinine is around 2.3. CAT scan obtained on July 25 did not show any evidence of obstruction, patient did receive radiocontrast during this admission She has multiple comorbidities including perforated bowel suspected colon cancer and was also taking naproxen in the outpatient setting Past medical history: Hypertension Respiratory failure currently extubated Current allergies: None Home medication from medication: Reviewed Social history: Reviewed from chart Family history: Reviewed for chart Review of systems Limited due to encephalopathy multifactorial Physical examination Vitals: Reviewed General: No acute distress HEENT: Oral mucosa moist no pallor or icterus Neck: Supple without any JVD thyromegaly or nodular mass Chest: Clear to auscultation Heart: Regular rate and rhythm S1-S2 heard no S3-S4 Abdomen: Soft nontender, bowel sounds present no renal bruit Extremity: Minimal edema dry skin no peripheral cyanosis Endocrine: Thyroid not enlarged Psychiatric: No agitation and aggression noted Musculoskeletal: No joint effusion noted Labs and x-rays: Reviewed from this admission Past History Past Medical History: diabetes, hypertension Past Surgical History: hysterectomy Medications and Allergies Allergies Allergy/AdvReac Type Severity Reaction Status Date / Time No Known Allergies Allergy Unverified 07/18/18 20:42 Home Medications Medication Instructions Recorded Confirmed Last Taken Type Ferrous Sulfate [Feosol 325 MG tab] 325 mg PO BID tablet 08/18/18 Unknown Rx HYDROcodone/APAP 5-325 [[place] 1 each PO Q4H PRN #30 tablet 08/18/18 Unknown Rx 5-325 mg TAB] Insulin Glargine [Lantus VIAL] 16 units SUB-Q DAILY units 08/18/18 Unknown Rx Ipratropium/Albuterol Sulfate 1 ampul IH TIDRT ampul.neb 08/18/18 Unknown Rx [DUONEB *Not for PRN Use*] Lispro Insulin [HumaLOG] 0 unit SUB-Q Q6HR units 08/18/18 Unknown Rx Metoprolol Xl [Metoprolol 50 mg PO QDAY #30 08/18/18 07/19/18 07/18/18 Rx SUCCINATE ER TAB] Polyethylene Glycol 3350 [Miralax 17 gm PO QDAY PRN powd.pack 08/18/18 Unknown Rx 3350] amLODIPine [Norvasc] 10 mg PO QDAY tablet 08/18/18 Unknown Rx Active Meds: Active Medications Albuterol (Proventil) 2.5 mg IH Q4HRT PRN PRN Reason: Shortness Of Breath Last Admin: 07/24/18 20:31 Dose: 2.5 mg Documented by: Albuterol/Ipratropium (Duoneb *Not For Prn Use*) 1 ampul IH TIDRT TRINY Last Admin: 08/04/18 08:18 Dose: 1 ampul Documented by: Clonidine HCl (Catapres-Tts Patch) 0.3 mg TD Mo TRINY Last Admin: 08/01/18 18:08 Dose: 0.3 mg Documented by: Dextrose (D50w (25gm) Syringe) 50 ml IV PRN PRN PRN Reason: Hypoglycemia Enalaprilat (Vasotec) 2.5 mg IV Q6HR [facility] Last Admin: 08/04/18 05:59 Dose: Not Given Documented by: Hydralazine HCl (Apresoline) 20 mg IV Q4HR PRN PRN Reason: Hypertension Last Admin: 07/31/18 21:54 Dose: 20 mg Documented by: Amino Acids/Electrolytes/Dextrose (Tpn Adult) 1,999.92 mls @ 83.33 mls/hr IV DAILY@1999 [facility]; Protocol Stop: 08/04/18 19:59 Last Admin: 08/03/18 20:26 Dose: 83.33 mls/hr Documented by: Piperacillin Sod/Tazobactam Sod (Zosyn/Ns 2.25 Gm/50ml) 2.25 gm in 50 mls @ 100 mls/hr IV Q8HR [facility]; Protocol Last Admin: 08/04/18 06:02 Dose: 100 mls/hr Documented by: Insulin Glargine (Lantus) 20 units SUB-Q DAILY [facility] Last Admin: 08/03/18 10:51 Dose: 20 units Documented by: Insulin Human Lispro (Humalog) 0 unit SUB-Q Q4H [facility]; Protocol Last Admin: 08/04/18 08:02 Dose: 4 unit Documented by: Labetalol HCl (Normodyne) 10 mg IV Q4H PRN PRN Reason: Blood Pressure Last Admin: 08/01/18 16:12 Dose: 10 mg Documented by: Morphine Sulfate (Morphine) 2 mg IV Q3H PRN PRN Reason: Pain, Moderate (4-6) Last Admin: 08/04/18 02:14 Dose: 2 mg Documented by: Multi-Ingred Cream/Lotion/Oil/Oint (Artificial Tears Ophth Oint) 1 applic OU Q4HR PRN PRN Reason: Dry Eye(s) Pantoprazole Sodium (Protonix) 40 mg IV QDAY [facility] Last Admin: 08/03/18 10:50 Dose: 40 mg Documented by: Exam - Vital Signs Vital signs: Vital Signs Pulse Resp Pulse Ox 109 H 27 H 94 07/18/18 20:26 07/18/18 20:26 07/18/18 20:26 Results - Lab Results 08/16/18 04:06 08/18/18 04:26 Most recent lab results Calcium 7.7 mg/dL (8.4-10.2) L 08/04/18 04:15 Phosphorus 6.60 mg/dL (2.5-4.5) H 08/04/18 04:15 Magnesium 2.50 mg/dL (1.7-2.3) H 08/04/18 04:15
[2018-08-04] MEDS: PROTONIX IV SCH (09:28)
[2018-08-04] MEDS: LANTUS SUB-Q SCH (09:28)
--- NOTE | 2018-08-04 11:10 | Progress Note ---
Assessment and Plan Cultures: 07/19/2018 blood culture: no growth 07/22/2018 Blood culture: no growth Assessment: 87-year-old female with diabetes mellitus, congestive heart failure, HTN admitted with: 1) Sepsis secondary to intra-abdominal phlegmon/abscess with ?perforation versus necrotic tumor: - s/p surgery on 08/01/2018. Detailed operative note pending. - completed IV Cefepime and Flagyl x 15 days - switched to IV zosyn 08/03/2018, given worsening renal function and high risk of neurotoxicity from Cefepime in this setting (renal failure, elderly patient) 2) Acute renal failure: creatinine rising Renally dose abx. 3) Acute encephalopathy: will avoid Cefepime. 4) DM-2 - stable Recs: - continue renally adjusted IV Zosyn - Gen Surgery following, on TPN - WBC elevated, probably post operative stress, continues to improve - Continue abx, monitor WBC and fever Will follow along. Please call with questions. Jerald Lopez MD [facility] C: [phone] O: [phone] F: [phone] Subjective Date of service: 08/04/18 Principal diagnosis: Sepsis and Colitis Interval history: No fever. WBC improving. Remains on NG suction, no BM or gas. Objective - Exam Narrative Exam: Physical Exam: Constitutional: Alert, alert. No acute distress. NG suction + Head, Ears, Nose: Normocephalic, atraumatic. External ears, nose normal Eyes: Conjunctivae/corneas clear. No icterus. No ptosis. Neck: Supple, no meningeal signs Cardiovascular: S1, S2 normal, no murmur heard Respiratory: Good air entry, clear to auscultation bilaterally GI: distended, bowel sounds absent, drain + with scant output. Grace + Musculoskeletal: No pedal edema, no cyanosis. Skin: No rash or abscess Hem/Lymphatic: No palpable cervical or supraclavicular nodes. No lymphangitis Psych: no agitation Neurological: Awake, alert, answering basic questions. - Constitutional Vitals: Vital Signs Temp Pulse Resp BP Pulse Ox 97.7 F 92 H 19 141/64 95 08/04/18 08:50 08/04/18 10:01 08/04/18 10:01 08/04/18 10:01 08/04/18 10:01 Temperature -Last 24 Hours Temperature 97.7 F Temperature 97.7 F Temperature 99.2 F Temperature 98.8 F Temperature 98.4 F Temperature 99.6 F Temperature 98.8 F - Labs CBC & Chem 7: 08/04/18 04:15 08/04/18 04:15 Labs: Abnormal lab results 08/01/18 08/03/18 08/03/18 Range/Units 07:18 14:18 21:44 WBC (4.5-11.0) K/mm3 RBC (3.65-5.03) M/mm3 Hgb (10.1-14.3) gm/dl Hct (30.3-42.9) % RDW (13.2-15.2) % Lymph % (Auto) (13.4-35.0) % [place] % (Auto) (0.0-7.3) % Lymph # (1.2-5.4) K/mm3 [place] # (0.0-0.8) K/mm3 Seg Neutrophils % (40.0-70.0) % Seg Neutrophils # (1.8-7.7) K/mm3 BUN (7-17) mg/dL Creatinine (0.7-1.2) mg/dL Glucose (65-100) mg/dL POC Glucose 199 H 189 H (70-105) Calcium (8.4-10.2) mg/dL Phosphorus (2.5-4.5) mg/dL Magnesium (1.7-2.3) mg/dL Crossmatch See Detail 08/04/18 08/04/18 08/04/18 Range/Units 00:19 04:07 04:15 WBC (4.5-11.0) K/mm3 RBC (3.65-5.03) M/mm3 Hgb (10.1-14.3) gm/dl Hct (30.3-42.9) % RDW (13.2-15.2) % Lymph % (Auto) (13.4-35.0) % [place] % (Auto) (0.0-7.3) % Lymph # (1.2-5.4) K/mm3 [place] # (0.0-0.8) K/mm3 Seg Neutrophils % (40.0-70.0) % Seg Neutrophils # (1.8-7.7) K/mm3 BUN 89 H (7-17) mg/dL Creatinine 2.3 H (0.7-1.2) mg/dL Glucose 196 H (65-100) mg/dL POC Glucose 162 H 211 H (70-105) Calcium 7.7 L (8.4-10.2) mg/dL Phosphorus 6.60 H (2.5-4.5) mg/dL Magnesium 2.50 H (1.7-2.3) mg/dL Crossmatch 08/04/18 08/04/18 08/04/18 Range/Units 04:15 07:56 10:17 WBC 11.1 H (4.5-11.0) K/mm3 RBC 2.93 L (3.65-5.03) M/mm3 Hgb 8.5 L (10.1-14.3) gm/dl Hct 25.7 L (30.3-42.9) % RDW 20.5 H (13.2-15.2) % Lymph % (Auto) 7.7 L (13.4-35.0) % [place] % (Auto) 10.3 H (0.0-7.3) % Lymph # 0.9 L (1.2-5.4) K/mm3 [place] # 1.1 H (0.0-0.8) K/mm3 Seg Neutrophils % 80.6 H (40.0-70.0) % Seg Neutrophils # 8.9 H (1.8-7.7) K/mm3 BUN (7-17) mg/dL Creatinine (0.7-1.2) mg/dL Glucose (65-100) mg/dL POC Glucose 229 H 221 H (70-105) Calcium (8.4-10.2) mg/dL Phosphorus (2.5-4.5) mg/dL Magnesium (1.7-2.3) mg/dL Crossmatch
--- NOTE | 2018-08-04 11:39 | Progress Note ---
Assessment and Plan Assessment and plan: Patient is 87 yo woman with a history of DM, CHF and hypertension who presents to [facility] ED via EMS with AMS, falling at home, feeling hot, blood glucose was in the 40s and she was given oral glucose by EMS prior to arrival. Associated with falling is diaphoresis, lose of appetite, n/v, sob x 1 day. This is patient 3rd fall at home. She did complain of right upper quadrant, sharp intermittent severe, aggravated by certain movement, relieved by different positions. She was found to have bowel perforation. * CTAP with IV contrast IMPRESSION: Extensive inflammatory changes involving the cecum and proximal ascending colon extending posteriorly with pericolonic stranding. Diagnostic consideration would include appendicitis with perforation presuming the patient still has her appendix. The other possibility is severe diverticulitis with probable perforation. Extensive colonic diverticulosis. Uncomplicated cysts in both kidneys. Hysterectomy. Multilevel disc degeneration in the lumbar spine. Incidental note is made of a crescent-shaped area of mural thrombus at the thoracoabdominal junction involving the aorta. A remote dissection cannot entirely be excluded. * CTA chest pains IMPRESSION: 1. No evidence of pulmonary embolism. 2. Mild cardiomegaly 3. Lingular subsegmental atelectasis versus parenchymal scar 4. 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 No evidence of acute infarct or intracranial hemorrhage. 2. White matter lucency consistent with chronic microvascular ischemic disease. * pCXR IMPRESSION: Subpleural effusion and cardiomegaly * 07/25/[address] abd/pelvis without contrast FINDINGS: Small layering pleural effusions have developed measuring up to 1 cm in thickness. Heart size is stable at the upper limits of normal. The visualized lung bases are adequately aerated. The masslike lesion in the ascending colon appears stable in size and contour. There is no evidence for obstruction or leakage of contrast. There are scattered diverticula in the proximal colon. Mild inflammatory changes adjacent to this masslike lesion have decreased by 20% since the previous exam. It is unclear if this represents a colon mass or is associated with diverticulitis. I favor a colon mass. The liver, biliary system, pancreas, spleen, kidneys and adrenal glands remain unremarkable. The pelvic viscera are within normal limits. Hysterectomy changes are noted. IMPRESSION: Inflammatory changes adjacent to the right colon mass or diverticulitis has improved slightly. Overall, no overwhelming change. No new acute process. New small layering pleural effusions. * 08/01/[address] Wooten Procedure: Exploratory laparotomy, lysis of extensive adhesion, right hemicolectomy with ileocolic anastomosis "Findings: A very large mass extending outside of the colon into the retroperitoneum in the area of the hepatic flexure. Also, extensive adhesions involving the entire omentum as well as pelvis including small bowel deep in the pelvis. Technically difficult and challenging case....Final Impression: Stage IV cancer with extension into the surrounding fat and retroperitoneum. 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, s/p surgery 08/01/18, still intubated, s/p extubated 08/02/18 and transferred to [facility]: continue 02 support Hypertensive urgency, Bp controlled on the following: catapress patch, iv enalapril (will have to stop because worsening renal function), iv hydralazine and iv labetalol, ARF, ATN suspected: Nephrology following Recurrent falls with episodes of hypoglycemia: hold DM medication(s), treated with dextrose, following accuchecks Sepsis with suspected perforated bowel from colon cancer s/p surgery Acute metabolic encephalopathy: treat the hypoglycemia and sepsis 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 Bruno===> Adenocarcinoma of the colon, just waiting on MSI staining and the report has been signed but not in [employer] EMR. I have asked Dr. Bruno to release the report into [employer] EMR. Now, I will go and speak with family to recommend Hospice. CCT 35 minutes History Interval history: Patient was seen and examined. Follow-up on current diagnosis of bowel perforation. Overnight uneventful. Patient denies any chest pain, shortness breath, nausea/vomiting or severe headaches. Imaging, nursing note, chart, labs and old chart reviewed. Discussed with patient. Hospitalist Physical - Physical exam Narrative exam: Gen: WDWN, NAD, Awake, Alert, Orientated x 1 HEENT: NCAT, EOMI, PERRL, OP Clear Neck: supple, no adenopathy, no thyromegaly, no JVD CVS/Heart: RRR, normal S1S2, pulses present bilaterally Chest/Lungs: diminished bs bilateral, Symmetrical chest expansion, good air ent ry bilaterally GI/Abdomen: soft diffusely tender, good bowel sounds, no guarding or rebound /Bladder: no suprapubic tenderness, no CVA or paraspinal tenderness Extermity/Skin: no c/c/e, no obvious rash MSK: FROM x 4 Neuro: CN 2-12 grossly intact, no new focal deficits Psych: calm - Constitutional Vitals: Temp Pulse Resp BP Pulse Ox 97.7 F 84 14 128/62 96 08/04/18 08:50 08/04/18 11:07 08/04/18 11:00 08/04/18 11:07 08/04/18 11:00 General appearance: Present: no acute distress, well-nourished Results - Labs CBC & Chem 7: 08/04/18 04:15 08/04/18 04:15 Labs: Laboratory Last Values WBC 11.1 K/mm3 (4.5-11.0) H 08/04/18 04:15 RBC 2.93 M/mm3 (3.65-5.03) L 08/04/18 04:15 Hgb 8.5 gm/dl (10.1-14.3) L 08/04/18 04:15 Hct 25.7 % (30.3-42.9) L 08/04/18 04:15 MCV 88 fl (79-97) 08/04/18 04:15 MCH 29 pg (28-32) 08/04/18 04:15 MCHC 33 % (30-34) 08/04/18 04:15 RDW 20.5 % (13.2-15.2) H 08/04/18 04:15 Plt Count 166 K/mm3 (140-440) 08/04/18 04:15 Lymph % (Auto) 7.7 % (13.4-35.0) L 08/04/18 04:15 [place] % (Auto) 10.3 % (0.0-7.3) H 08/04/18 04:15 Eos % (Auto) 1.0 % (0.0-4.3) 08/04/18 04:15 Baso % (Auto) 0.4 % (0.0-1.8) 08/04/18 04:15 Lymph # 0.9 K/mm3 (1.2-5.4) L 08/04/18 04:15 [place] # 1.1 K/mm3 (0.0-0.8) H 08/04/18 04:15 Eos # 0.1 K/mm3 (0.0-0.4) 08/04/18 04:15 Baso # 0.0 K/mm3 (0.0-0.1) 08/04/18 04:15 Add Manual Diff Complete 08/02/18 04:26 Total Counted 100 08/02/18 04:26 Seg Neutrophils % 80.6 % (40.0-70.0) H 08/04/18 04:15 Seg Neuts % (Manual) 90.0 % (40.0-70.0) H 08/02/18 04:26 Band Neutrophils % 0 % 08/02/18 04:26 Lymphocytes % (Manual) 7.0 % (13.4-35.0) L 08/02/18 04:26 Reactive Lymphs % (Man) 0 % 08/02/18 04:26 Monocytes % (Manual) 3.0 % (0.0-7.3) 08/02/18 04:26 Eosinophils % (Manual) 0 % (0.0-4.3) 08/02/18 04:26 Basophils % (Manual) 0 % (0.0-1.8) 08/02/18 04:26 Metamyelocytes % 0 % 08/02/18 04:26 Myelocytes % 0 % 08/02/18 04:26 Promyelocytes % 0 % 08/02/18 04:26 Blast Cells % 0 % 08/02/18 04:26 Nucleated RBC % Not Reportable 08/02/18 04:26 Seg Neutrophils # 8.9 K/mm3 (1.8-7.7) H 08/04/18 04:15 Seg Neutrophils # Man 18.8 K/mm3 (1.8-7.7) H 08/02/18 04:26 Band Neutrophils # 0.0 K/mm3 08/02/18 04:26 Lymphocytes # (Manual) 1.5 K/mm3 (1.2-5.4) 08/02/18 04:26 Abs React Lymphs (Man) 0.0 K/mm3 08/02/18 04:26 Monocytes # (Manual) 0.6 K/mm3 (0.0-0.8) 08/02/18 04:26 Eosinophils # (Manual) 0.0 K/mm3 (0.0-0.4) 08/02/18 04:26 Basophils # (Manual) 0.0 K/mm3 (0.0-0.1) 08/02/18 04:26 Metamyelocytes # 0.0 K/mm3 08/02/18 04:26 Myelocytes # 0.0 K/mm3 08/02/18 04:26 Promyelocytes # 0.0 K/mm3 08/02/18 04:26 Blast Cells # 0.0 K/mm3 08/02/18 04:26 WBC Morphology Not Reportable 08/02/18 04:26 Hypersegmented Neuts Not Reportable 08/02/18 04:26 Hyposegmented Neuts Not Reportable 08/02/18 04:26 Hypogranular Neuts Not Reportable 08/02/18 04:26 Smudge Cells Not Reportable 08/02/18 04:26 Toxic Granulation Not Reportable 08/02/18 04:26 Toxic Vacuolation Not Reportable 08/02/18 04:26 Dohle Bodies Not Reportable 08/02/18 04:26 Pelger-Huet Anomaly Not Reportable 08/02/18 04:26 Richard Rods Not Reportable 08/02/18 04:26 Platelet Estimate Consistent w auto 08/02/18 04:26 Clumped Platelets Not Reportable 08/02/18 04:26 Plt Clumps, EDTA Not Reportable 08/02/18 04:26 Large Platelets Not Reportable 08/02/18 04:26 Giant Platelets Not Reportable 08/02/18 04:26 Platelet Satelliting Not Reportable 08/02/18 04:26 Plt Morphology Comment Not Reportable 08/02/18 04:26 RBC Morphology Not Reportable 08/02/18 04:26 Dimorphic RBCs Not Reportable 08/02/18 04:26 Polychromasia Not Reportable 08/02/18 04:26 Hypochromasia Not Reportable 08/02/18 04:26 Poikilocytosis 2+ 08/02/18 04:26 Anisocytosis 1+ 08/02/18 04:26 Microcytosis Not Reportable 08/02/18 04:26 Macrocytosis Not Reportable 08/02/18 04:26 Spherocytes Not Reportable 08/02/18 04:26 Pappenheimer Bodies Not Reportable 08/02/18 04:26 Sickle Cells Not Reportable 08/02/18 04:26 Target Cells Not Reportable 08/02/18 04:26 Tear Drop Cells Not Reportable 08/02/18 04:26 Ovalocytes Few 08/02/18 04:26 Helmet Cells Not Reportable 08/02/18 04:26 [place] Bodies Not Reportable 08/02/18 04:26 [place] Rings Not Reportable 08/02/18 04:26 Betzy Cells Not Reportable 08/02/18 04:26 Bite Cells Not Reportable 08/02/18 04:26 Crenated Cell Not Reportable 08/02/18 04:26 Elliptocytes Not Reportable 08/02/18 04:26 Acanthocytes (Spur) Not Reportable 08/02/18 04:26 Rouleaux Not Reportable 08/02/18 04:26 Hemoglobin C Crystals Not Reportable 08/02/18 04:26 Schistocytes Not Reportable 08/02/18 04:26 Malaria parasites Not Reportable 08/02/18 04:26 Michi Bodies Not Reportable 08/02/18 04:26 Hem Pathologist Commnt No 08/02/18 04:26 PT 14.5 Sec. (12.2-14.9) 07/28/18 05:27 INR 1.09 (0.87-1.13) 07/28/18 05:27 APTT 23.2 Sec. (24.2-36.6) L 07/18/18 20:48 POC ABG pH 7.409 (7.35-7.45) 08/02/18 09:56 POC ABG pCO2 38.5 (35-45) 08/02/18 09:56 POC ABG pO2 70 (80-105) L 08/02/18 09:56 POC ABG HCO3 24.3 08/02/18 09:56 POC ABG Total CO2 25 08/02/18 09:56 POC ABG O2 Sat 94 08/02/18 09:56 POC ABG Base Excess 0 08/02/18 09:56 FiO2 40 % 08/02/18 09:56 Sodium 141 mmol/L (137-145) 08/04/18 04:15 Potassium 3.8 mmol/L (3.6-5.0) 08/04/18 04:15 Chloride 104.5 mmol/L (98-107) 08/04/18 04:15 Carbon Dioxide 22 mmol/L (22-30) 08/04/18 04:15 Anion Gap 18 mmol/L 08/04/18 04:15 BUN 89 mg/dL (7-17) H 08/04/18 04:15 Creatinine 2.3 mg/dL (0.7-1.2) H 08/04/18 04:15 Estimated GFR 24 ml/min 08/04/18 04:15 BUN/Creatinine Ratio 39 % 08/04/18 04:15 Glucose 196 mg/dL (65-100) H 08/04/18 04:15 POC Glucose 221 (70-105) H 08/04/18 10:17 Lactic Acid 1.10 mmol/L (0.7-2.0) 07/19/18 17:04 Calcium 7.7 mg/dL (8.4-10.2) L 08/04/18 04:15 Phosphorus 6.60 mg/dL (2.5-4.5) H 08/04/18 04:15 Magnesium 2.50 mg/dL (1.7-2.3) H 08/04/18 04:15 Total Bilirubin 0.30 mg/dL (0.1-1.2) 08/03/18 04:42 AST 24 units/L (5-40) 08/03/18 04:42 ALT 10 units/L (7-56) 08/03/18 04:42 Alkaline Phosphatase 55 units/L (35-129) 08/03/18 04:42 Total Creatine Kinase 48 units/L (30-135) 07/18/18 20:48 CK-MB (CK-2) < 1.0 ng/mL (0.0-4.0) 07/18/18 20:48 CK-MB (CK-2) Rel Index 2.0 (0-4) 07/18/18 20:48 Troponin T 0.025 ng/mL (0.00-0.029) 07/18/18 20:48 C-Reactive Protein 4.30 mg/dL (0.00-1.30) H 07/25/18 03:58 NT-Pro-B Natriuret Pep 462.4 pg/mL (0-900) 07/18/18 20:48 Total Protein 5.5 g/dL (6.3-8.2) L 08/03/18 04:42 Albumin 2.5 g/dL (3.9-5) L 08/03/18 04:42 Albumin/Globulin Ratio 0.8 % 08/03/18 04:42 Carcinoembryonic Ag See scanned result 07/22/18 13:47 Urine Color Yellow (Yellow) 07/18/18 21:49 Urine Turbidity Clear (Clear) 07/18/18 21:49 Urine pH 5.0 (5.0-7.0) 07/18/18 21:49 Ur Specific [place] 1.019 (1.003-1.030) 07/18/18 21:49 Urine Protein <15 mg/dl mg/dL (Negative) 07/18/18 21:49 Urine Glucose (UA) Neg mg/dL (Negative) 07/18/18 21:49 Urine Ketones Neg mg/dL (Negative) 07/18/18 21:49 Urine Blood Neg (Negative) 07/18/18 21:49 Urine Nitrite Neg (Negative) 07/18/18 21:49 Urine Bilirubin Neg (Negative) 07/18/18 21:49 Urine Urobilinogen 4.0 mg/dL (<2.0) 07/18/18 21:49 Ur Leukocyte Esterase Neg (Negative) 07/18/18 21:49 Urine WBC (Auto) 2.0 /HPF (0.0-6.0) 07/18/18 21:49 Urine RBC (Auto) < 1.0 /HPF (0.0-6.0) 07/18/18 21:49 U Epithel Cells (Auto) 3.0 /HPF (0-13.0) 07/18/18 21:49 Urine Mucus Few /HPF 07/18/18 21:49 Blood Type B POSITIVE 08/01/18 07:18 Antibody Screen Negative 08/01/18 07:18 Crossmatch See Detail 08/01/18 07:18 Nutrition/Malnutrition Assess - Dietary Evaluation Nutrition/Malnutrition Findings: Nutrition Notes Start: 07/22/18 14:00 Freq: Status: Active Protocol: Document 08/04/18 08:43 CP (Rec: 08/04/18 08:53 CP [id number]) Co-Sign 08/04/18 08:43 LP Nutrition Notes Initial or Follow up Reassessment Current Diagnosis Diabetes Sepsis Hypertension Heart Failure Other Pertinent Diagnosis Stage IV CA s/p exp lap with ( R) colectomy Current Diet CPN at 83.33mL/hr Labs/Tests Phos 6.6 Mg 2.5 BUN 89 Cr 2.3 Pertinent Medications Lantus Humalog Height 5 ft 5 in Weight 110.9 kg [place] Body Weight (lbs) 125.0 BMI 40.6 Subjective/Other Information CPN day 13. CPN infusing at goal rate. Percent of energy/protein needs met: 119%/112% Burn Absent Trauma Absent #1 Nutrition Diagnosis Altered GI function Diagnosis Progress(for reassessment Continues documentation) Is patient on ventilator? No Is Patient Ambulatory and/or Out of Bed No REE-([place]-confined to bed) 1866.780 Kcal/Kg value to use for calculation 13 Approximate Energy Requirements Using 1442 kcal/Kg Additional Notes PRO needs 1-1.2g/kg adjBW: 84- 101g/day (AdjBW 84kg) Fluid needs 1ml/kcal Nutrition Intervention Change Diet Order: CPN Nutrition Support: CPN at 83.33 mL/hr. Osmolarity 1088. 4% AA, 0 mEq Mg, 50:50 Chloride:Acetate, MVI, MTE Kcal 1,085 Protein (gm) 80 Carbohydrates (gm) 225 Fat (gm) 0 Fluid (mL) 2,000 Fiber (gm) 0 Goal #1 PN to meet 65-70% energy and at least 80% pro needs Anticipated Discharge Needs: Unable to identify at this time Follow-Up By: 08/05/18 Additional Comments Labs in am: BMP, Mg, Phos
[2018-08-04] MEDS ORDERED: NACL 0.9% 500 ML 500 ML IV NR (12:00)
--- NOTE | 2018-08-04 12:31 | Progress Note ---
Assessment and Plan POD # 3 Pt feeling well. Abd soft, non tender. wd clean as per ET nurse path - stage IV adeno CA renal eval appreciated ATN? w/u in progress surgically stable rec onc eval trans I unit PRBC today OOB as iron continue present care Selected Entries 08/04/18 08/04/18 12:00 12:06 Temperature 98.3 F Pulse Rate 87 Respiratory 17 Rate Blood Pressure 145/55 Laboratory Tests 08/03/18 08/04/18 08/04/18 04:42 04:15 04:15 WBC 11.1 H Hgb 9.6 L 8.5 L Hct 30.3 25.7 L BUN 89 H Creatinine 2.3 H Objective Vital Signs - 12hr 08/04/18 08/04/18 08/04/18 01:01 02:00 03:01 Temperature Pulse Rate 79 92 H 86 Pulse Rate [ Anterior Bilateral] Pulse Rate [ From Monitor] Respiratory 14 16 13 Rate Respiratory Rate [Anterior Bilateral] Blood Pressure 124/44 146/61 116/50 O2 Sat by Pulse 95 93 96 Oximetry 08/04/18 08/04/18 08/04/18 04:00 05:00 05:59 Temperature 99.2 F Pulse Rate 86 77 86 Pulse Rate [ Anterior Bilateral] Pulse Rate [ 91 H From Monitor] Respiratory 14 14 Rate Respiratory Rate [Anterior Bilateral] Blood Pressure 123/57 110/46 110/46 O2 Sat by Pulse 97 96 Oximetry 08/04/18 08/04/18 08/04/18 06:01 07:01 08:00 Temperature 97.7 F Pulse Rate 89 88 Pulse Rate [ Anterior Bilateral] Pulse Rate [ 82 From Monitor] Respiratory 15 18 18 Rate Respiratory Rate [Anterior Bilateral] Blood Pressure 138/58 138/58 O2 Sat by Pulse 95 98 98 Oximetry 08/04/18 08/04/18 08/04/18 08:01 08:18 08:27 Temperature Pulse Rate 86 Pulse Rate [ 87 89 Anterior Bilateral] Pulse Rate [ From Monitor] Respiratory 17 Rate Respiratory 18 18 Rate [Anterior Bilateral] Blood Pressure 138/58 O2 Sat by Pulse 98 Oximetry 08/04/18 08/04/18 08/04/18 08:38 08:50 09:01 Temperature 97.7 F Pulse Rate 87 Pulse Rate [ Anterior Bilateral] Pulse Rate [ From Monitor] Respiratory 14 Rate Respiratory Rate [Anterior Bilateral] Blood Pressure 138/58 O2 Sat by Pulse 97 96 Oximetry 08/04/18 08/04/18 08/04/18 10:00 10:01 11:00 Temperature Pulse Rate 86 92 H 84 Pulse Rate [ Anterior Bilateral] Pulse Rate [ From Monitor] Respiratory 19 14 Rate Respiratory Rate [Anterior Bilateral] Blood Pressure 141/64 123/49 O2 Sat by Pulse 95 96 Oximetry 08/04/18 08/04/18 08/04/18 11:07 12:00 12:06 Temperature 98.3 F Pulse Rate 84 87 Pulse Rate [ Anterior Bilateral] Pulse Rate [ 82 From Monitor] Respiratory 17 Rate Respiratory Rate [Anterior Bilateral] Blood Pressure 128/62 145/55 O2 Sat by Pulse 95 Oximetry - Labs 08/04/18 04:15 08/04/18 04:15 Diabetes panel 08/04/18 Range/Units 04:15 Sodium 141 (137-145) mmol/L Potassium 3.8 (3.6-5.0) mmol/L Chloride 104.5 (98-107) mmol/L Carbon Dioxide 22 (22-30) mmol/L BUN 89 H (7-17) mg/dL Creatinine 2.3 H (0.7-1.2) mg/dL Glucose 196 H (65-100) mg/dL Calcium 7.7 L (8.4-10.2) mg/dL Calcium panel 08/04/18 Range/Units 04:15 Calcium 7.7 L (8.4-10.2) mg/dL Phosphorus 6.60 H (2.5-4.5) mg/dL Pituitary panel 08/04/18 Range/Units 04:15 Sodium 141 (137-145) mmol/L Potassium 3.8 (3.6-5.0) mmol/L Chloride 104.5 (98-107) mmol/L Carbon Dioxide 22 (22-30) mmol/L BUN 89 H (7-17) mg/dL Creatinine 2.3 H (0.7-1.2) mg/dL Glucose 196 H (65-100) mg/dL Calcium 7.7 L (8.4-10.2) mg/dL Adrenal panel 08/04/18 Range/Units 04:15 Sodium 141 (137-145) mmol/L Potassium 3.8 (3.6-5.0) mmol/L Chloride 104.5 (98-107) mmol/L Carbon Dioxide 22 (22-30) mmol/L BUN 89 H (7-17) mg/dL Creatinine 2.3 H (0.7-1.2) mg/dL Glucose 196 H (65-100) mg/dL Calcium 7.7 L (8.4-10.2) mg/dL
[2018-08-04] MEDS ORDERED: TPN ADULT 1,999.92 ML IV SCH (20:00)
--- NOTE | 2018-08-04 21:59 | Event Note ---
Date: 08/04/18 [id number]
--- NOTE | 2018-08-04 22:58 | Consultation ---
REFERRED BY: Rakesh Gonzalez MD REASON FOR CONSULTATION: Colon cancer. HISTORY OF PRESENT ILLNESS: The patient underwent a right colon resection on 08/01/2018. This showed adenocarcinoma 10 cm, grade 1, well differentiated. Tumor invades the visceral peritoneum margins. Proximal and distal margins are uninvolved, 12 lymph nodes were evaluated, all negative, T4a N0 Mx. The patient's family members were present in the room. The patient is getting tube feedings and has mittens. REVIEW OF SYSTEMS: Most of the information comes from medical records, family members and the patient. PAST MEDICAL HISTORY: Includes renal impairment, diabetes, hypertension. PAST SURGICAL HISTORY: Hysterectomy. ALLERGIES: None. PRESENT MEDICATIONS: Includes albuterol, clonidine, hydralazine, insulin, labetalol. PHYSICAL EXAMINATION: VITAL SIGNS: Temperature 98, pulse 90, respirations 20, BP 157/66. GENERAL: Elderly female lying in the bed, has NG tube feeds, is postop abdomen. HEENT: Pallor present. No icterus. NECK: No neck lymph nodes. HEART: S1, S2. CHEST: Lungs clear to auscultation. ABDOMEN: Post surgery. NEUROLOGIC: Awake, follows simple commands. EXTREMITIES: No calf tenderness. LABORATORY DATA: White cell is 11, hemoglobin 8.5, MCV 88, platelet 166, potassium 3.8, creatinine 2.3. RADIOLOGY: The patient had chest x-ray. Abdomen CT done. Abdomen CT on 07/25/2018 shows inflammatory changes suggesting to the right colon. ASSESSMENT: 1. T4a N0 Mx adenocarcinoma. 2. A 12 lymph nodes were negative. 3. History of diabetes. 4. History of hypertension. 5. History of fall. 6. History of metabolic encephalopathy. 7. 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 8. History of respiratory failure. 9. History of renal impairment. 10. As per the nursing staff, the patient is DNR. The patient received blood transfusion for anemia. 11. The patient is elderly. 12. As per the information, the patient had bowel perforation, hence labeled as stage 4. 13. The patient was intubated at one time during this admission. 14. I will follow the patient. JOB# [id number] NM/NTS
[2018-08-05] MEDS: MORPHINE IV PRN ×3 (01:49→21:19)
[2018-08-05] MEDS: HumaLOG SUB-Q SCH ×7 (06:03→23:56)
[2018-08-05] MEDS: ZOSYN/NS 2.25 GM/50ML 2.25 GM/50 ML BAG IV SCH ×3 (06:04→21:21)
[2018-08-05 06:26] LABS: Hemoglobin 8.5 gm/dl (10.1-14.3); Mean Corpuscular HGB Conc 33 % (30-34); Mean Corpuscular Volume 88 fl (79-97); Platelet Count 174 K/mm3 (140-440); Red Blood Count 2.96 M/mm3 (3.65-5.03); Red Cell Distribution Width 19.9 % (13.2-15.2)
[2018-08-05 06:51] LABS: Calcium 7.8 mg/dL (8.4-10.2)
[2018-08-05] MEDS: DUONEB *Not for PRN Use IH SCH ×2 (07:55→19:47)
[2018-08-05 08:12] LABS: Eosinophils % (Manual) 0 % (0.0-4.3); Total Cells Counted 100
[2018-08-05 08:14] LABS: Anisocytosis 1+; Hypochromasia Few; Ovalocytes Few; Platelet Estimate Consistent w Auto; Poikilocytosis 1+
--- NOTE | 2018-08-05 08:50 | Progress Note ---
Subjective Principal diagnosis: Sepsis and Colitis Objective - Vital Signs Vital signs: Vital Signs - 12hr 08/04/18 08/04/18 08/04/18 21:00 22:00 23:01 Temperature Pulse Rate 92 H 89 104 H Pulse Rate [ Anterior Bilateral] Pulse Rate [ From Monitor] Respiratory 15 15 22 Rate Respiratory Rate [Anterior Bilateral] Blood Pressure 123/56 139/59 179/78 O2 Sat by Pulse 97 95 95 Oximetry 08/04/18 08/05/18 08/05/18 23:13 00:00 01:00 Temperature 101.2 F H Pulse Rate 114 H 99 H 94 H Pulse Rate [ Anterior Bilateral] Pulse Rate [ 87 From Monitor] Respiratory 22 16 16 Rate Respiratory Rate [Anterior Bilateral] Blood Pressure 179/78 131/58 129/52 O2 Sat by Pulse 95 96 95 Oximetry 08/05/18 08/05/18 08/05/18 02:00 03:00 04:00 Temperature 99.5 F Pulse Rate 95 H 90 81 Pulse Rate [ Anterior Bilateral] Pulse Rate [ 80 From Monitor] Respiratory 19 18 14 Rate Respiratory Rate [Anterior Bilateral] Blood Pressure 144/63 124/55 119/49 O2 Sat by Pulse 95 94 96 Oximetry 08/05/18 08/05/18 08/05/18 05:00 06:00 07:01 Temperature Pulse Rate 85 79 76 Pulse Rate [ Anterior Bilateral] Pulse Rate [ From Monitor] Respiratory 15 16 14 Rate Respiratory Rate [Anterior Bilateral] Blood Pressure 137/60 135/52 121/49 O2 Sat by Pulse 95 95 97 Oximetry 08/05/18 08/05/18 08/05/18 07:55 07:56 08:38 Temperature 97.2 F L Pulse Rate Pulse Rate [ 76 Anterior Bilateral] Pulse Rate [ From Monitor] Respiratory Rate Respiratory 16 Rate [Anterior Bilateral] Blood Pressure O2 Sat by Pulse 99 Oximetry - Lab 08/05/18 05:23 08/05/18 05:23 Most recent lab results Calcium 7.8 mg/dL (8.4-10.2) L 08/05/18 05:23 Phosphorus 4.40 mg/dL (2.5-4.5) D 08/05/18 05:23 Magnesium 2.40 mg/dL (1.7-2.3) H 08/05/18 05:23 Medications & Allergies - Medications Allergies/Adverse Reactions: Allergies No Known Allergies Allergy (Unverified 07/18/18 20:42) Home Medications: Home Medications Medication Instructions Recorded Confirmed Last Taken Type Furosemide [Lasix] 20 mg PO DAILY 07/19/18 07/19/18 07/18/18 History Insulin Aspart [Novolog Flexpen] 100 unit SQ TID 07/19/18 07/19/18 07/18/18 History Losartan Potassium [Cozaar] 50 mg PO DAILY 07/19/18 07/19/18 07/18/18 History Metoprolol Xl [Metoprolol 25 mg PO QDAY 07/19/18 07/19/18 07/18/18 History SUCCINATE ER TAB] Naproxen 500 mg PO BID 07/19/18 07/19/18 07/18/18 History Ranitidine HCl [Acid Control] 150 mg PO BID 07/19/18 07/19/18 07/18/18 History Active Medications: Generic Name Dose Route Start Last Admin Trade Name Freq PRN Reason Stop Dose Admin Albuterol 2.5 mg 07/24/18 20:13 07/24/18 20:31 Proventil IH 2.5 mg Q4HRT PRN Administration Shortness Of Breath Albuterol/Ipratropium 1 ampul 07/25/18 14:00 08/05/18 07:55 Duoneb *Not For Prn Use* IH 1 ampul TIDRT TRINY Administration Clonidine HCl 0.3 mg 07/25/18 10:00 08/01/18 18:08 Catapres-Tts Patch TD 0.3 mg Mo TRINY Administration Dextrose 50 ml 07/19/18 02:51 D50w (25gm) Syringe IV PRN PRN Hypoglycemia Hydralazine HCl 20 mg 07/27/18 16:53 07/31/18 21:54 Apresoline IV 20 mg Q4HR PRN Administration Hypertension Piperacillin Sod/Tazobactam Sod 2.25 gm in 50 mls @ 100 mls/hr 08/03/18 14:00 08/05/18 06:04 Zosyn/Ns 2.25 Gm/50ml IV 100 mls/hr Q8HR TRINY Administration Protocol Amino Acids/Electrolytes/Dextrose 1,999.92 mls @ 83.33 mls/hr 08/04/18 20:00 08/04/18 21:48 Tpn Adult IV 08/05/18 19:59 83.33 mls/hr DAILY@2000 TRINY Administration Protocol Insulin Glargine 20 units 08/02/18 11:00 08/04/18 09:28 Lantus SUB-Q 20 units DAILY TRINY Administration Insulin Human Lispro 0 unit 07/19/18 03:00 08/05/18 06:03 Humalog SUB-Q 3 unit Q4H TRINY Administration Protocol Labetalol HCl 10 mg 07/26/18 12:37 08/01/18 16:12 Normodyne IV 10 mg Q4H PRN Administration Blood Pressure Morphine Sulfate 2 mg 08/03/18 00:21 08/05/18 01:49 Morphine IV 2 mg Q3H PRN Administration Pain, Moderate (4-6) Multi-Ingred Cream/Lotion/Oil/Oint 1 applic 08/01/18 11:56 Artificial Tears Ophth Oint OU Q4HR PRN Dry Eye(s) Pantoprazole Sodium 40 mg 08/02/18 10:00 08/04/18 09:28 Protonix IV 40 mg QDAY TRINY Administration
[2018-08-05] MEDS: LANTUS SUB-Q SCH (09:18)
[2018-08-05] MEDS: PROTONIX IV SCH (09:18)
--- NOTE | 2018-08-05 09:48 | Progress Note ---
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 Detailed operative note pending. - completed IV Cefepime and Flagyl x 15 days - switched to IV zosyn 08/03/2018, given worsening renal function and high risk of neurotoxicity from Cefepime in this setting (renal failure, elderly patient) 2) Acute renal failure: creatinine rising Renally dose abx. 3) Acute encephalopathy: will avoid Cefepime. 4) DM-2 - stable Recs: - continue renally adjusted IV Zosyn - Gen Surgery following - new fever last night, but WBC continues to improve. Monitor fever for now, if persistent, may have to consider a CT abdomen pelvis, though without contrast given her renal function decline Will follow along. Please call with questions. Jerald Lopez MD [facility] C: [phone] O: [phone] F: [phone] Subjective Date of service: 08/05/18 Principal diagnosis: Sepsis and Colitis Interval history: Had a fever yesterday. WBC continues to come down. Sleepy this morning and somewhat confused. No agitation. Objective - Exam Narrative Exam: Physical Exam: Constitutional: Alert, alert. No acute distress. NG suction + Head, Ears, Nose: Normocephalic, atraumatic. External ears, nose normal Eyes: Conjunctivae/corneas clear. No icterus. No ptosis. Neck: Supple, no meningeal signs Cardiovascular: S1, S2 normal, no murmur heard Respiratory: Good air entry, clear to auscultation bilaterally GI: distended, bowel sounds hypoactive. Non tender. Drain + Musculoskeletal: No pedal edema, no cyanosis. Skin: No rash or abscess Hem/Lymphatic: No palpable cervical or supraclavicular nodes. No lymphangitis Psych: no agitation Neurological: Awake, alert, answering basic questions. - Constitutional Vitals: Vital Signs Temp Pulse Resp BP Pulse Ox 97.2 F L 76 16 121/49 99 08/05/18 08:38 08/05/18 07:55 08/05/18 07:55 08/05/18 07:01 08/05/18 07:56 Temperature -Last 24 Hours Temperature 97.2 F Temperature 99.5 F Temperature 101.2 F Temperature 99.2 F Temperature 98.4 F Temperature 98.3 F - Labs CBC & Chem 7: 08/05/18 05:23 08/05/18 05:23 Labs: Abnormal lab results 08/01/18 08/04/18 08/04/18 Range/Units 07:18 10:17 14:06 RBC (3.65-5.03) M/mm3 Hgb (10.1-14.3) gm/dl Hct (30.3-42.9) % RDW (13.2-15.2) % Seg Neuts % (Manual) (40.0-70.0) % Lymphocytes % (Manual) (13.4-35.0) % Monocytes % (Manual) (0.0-7.3) % Lymphocytes # (Manual) (1.2-5.4) K/mm3 Monocytes # (Manual) (0.0-0.8) K/mm3 Sodium (137-145) mmol/L Chloride (98-107) mmol/L BUN (7-17) mg/dL Creatinine (0.7-1.2) mg/dL Glucose (65-100) mg/dL POC Glucose 221 H 182 H (70-105) Calcium (8.4-10.2) mg/dL Magnesium (1.7-2.3) mg/dL Crossmatch See Detail 08/04/18 08/05/18 08/05/18 Range/Units 20:10 01:26 05:23 RBC (3.65-5.03) M/mm3 Hgb (10.1-14.3) gm/dl Hct (30.3-42.9) % RDW (13.2-15.2) % Seg Neuts % (Manual) (40.0-70.0) % Lymphocytes % (Manual) (13.4-35.0) % Monocytes % (Manual) (0.0-7.3) % Lymphocytes # (Manual) (1.2-5.4) K/mm3 Monocytes # (Manual) (0.0-0.8) K/mm3 Sodium 147 H (137-145) mmol/L Chloride 111.9 H (98-107) mmol/L BUN 94 H (7-17) mg/dL Creatinine 2.1 H (0.7-1.2) mg/dL Glucose 158 H (65-100) mg/dL POC Glucose 201 H 170 H (70-105) Calcium 7.8 L (8.4-10.2) mg/dL Magnesium 2.40 H (1.7-2.3) mg/dL Crossmatch 08/05/18 08/05/18 08/05/18 Range/Units 05:23 05:42 08:21 RBC 2.96 L (3.65-5.03) M/mm3 Hgb 8.5 L (10.1-14.3) gm/dl Hct 26.0 L (30.3-42.9) % RDW 19.9 H (13.2-15.2) % Seg Neuts % (Manual) 78.0 H (40.0-70.0) % Lymphocytes % (Manual) 11.0 L (13.4-35.0) % Monocytes % (Manual) 10.0 H (0.0-7.3) % Lymphocytes # (Manual) 1.0 L (1.2-5.4) K/mm3 Monocytes # (Manual) 0.9 H (0.0-0.8) K/mm3 Sodium (137-145) mmol/L Chloride (98-107) mmol/L BUN (7-17) mg/dL Creatinine (0.7-1.2) mg/dL Glucose (65-100) mg/dL POC Glucose 166 H 178 H (70-105) Calcium (8.4-10.2) mg/dL Magnesium (1.7-2.3) mg/dL Crossmatch
--- NOTE | 2018-08-05 13:16 | Progress Note ---
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 hawkins) spoke with Dr. Sampson contreras and stents no longer needed - removed at the bedside will sign off Objective - Constitutional Vitals: Vital Signs - 12hr 08/05/18 08/05/18 08/05/18 02:00 03:00 04:00 Temperature 99.5 F Pulse Rate 95 H 90 81 Pulse Rate [ Anterior Bilateral] Pulse Rate [ 80 From Monitor] Respiratory 19 18 14 Rate Respiratory Rate [Anterior Bilateral] Blood Pressure 144/63 124/55 119/49 O2 Sat by Pulse 95 94 96 Oximetry 08/05/18 08/05/18 08/05/18 05:00 06:00 07:01 Temperature Pulse Rate 85 79 76 Pulse Rate [ Anterior Bilateral] Pulse Rate [ From Monitor] Respiratory 15 16 14 Rate Respiratory Rate [Anterior Bilateral] Blood Pressure 137/60 135/52 121/49 O2 Sat by Pulse 95 95 97 Oximetry 08/05/18 08/05/18 08/05/18 07:55 07:56 08:00 Temperature Pulse Rate Pulse Rate [ 76 Anterior Bilateral] Pulse Rate [ 93 H From Monitor] Respiratory 26 H Rate Respiratory 16 Rate [Anterior Bilateral] Blood Pressure O2 Sat by Pulse 99 93 Oximetry 08/05/18 08/05/18 08/05/18 08:01 08:05 08:38 Temperature 97.2 F L Pulse Rate 80 Pulse Rate [ 78 Anterior Bilateral] Pulse Rate [ From Monitor] Respiratory 15 Rate Respiratory 18 Rate [Anterior Bilateral] Blood Pressure 143/70 O2 Sat by Pulse 97 Oximetry 08/05/18 08/05/18 08/05/18 09:00 10:00 11:37 Temperature 98.3 F Pulse Rate 74 72 Pulse Rate [ Anterior Bilateral] Pulse Rate [ From Monitor] Respiratory 14 13 Rate Respiratory Rate [Anterior Bilateral] Blood Pressure 118/48 122/53 O2 Sat by Pulse 97 98 Oximetry - Labs CBC & Chem 7: 08/05/18 05:23 08/05/18 05:23 Labs: Abnormal lab results 08/04/18 08/04/18 08/05/18 Range/Units 14:06 20:10 01:26 RBC (3.65-5.03) M/mm3 Hgb (10.1-14.3) gm/dl Hct (30.3-42.9) % RDW (13.2-15.2) % Seg Neuts % (Manual) (40.0-70.0) % Lymphocytes % (Manual) (13.4-35.0) % Monocytes % (Manual) (0.0-7.3) % Lymphocytes # (Manual) (1.2-5.4) K/mm3 Monocytes # (Manual) (0.0-0.8) K/mm3 Sodium (137-145) mmol/L Chloride (98-107) mmol/L BUN (7-17) mg/dL Creatinine (0.7-1.2) mg/dL Glucose (65-100) mg/dL POC Glucose 182 H 201 H 170 H (70-105) Calcium (8.4-10.2) mg/dL Magnesium (1.7-2.3) mg/dL 08/05/18 08/05/18 08/05/18 Range/Units 05:23 05:23 05:42 RBC 2.96 L (3.65-5.03) M/mm3 Hgb 8.5 L (10.1-14.3) gm/dl Hct 26.0 L (30.3-42.9) % RDW 19.9 H (13.2-15.2) % Seg Neuts % (Manual) 78.0 H (40.0-70.0) % Lymphocytes % (Manual) 11.0 L (13.4-35.0) % Monocytes % (Manual) 10.0 H (0.0-7.3) % Lymphocytes # (Manual) 1.0 L (1.2-5.4) K/mm3 Monocytes # (Manual) 0.9 H (0.0-0.8) K/mm3 Sodium 147 H (137-145) mmol/L Chloride 111.9 H (98-107) mmol/L BUN 94 H (7-17) mg/dL Creatinine 2.1 H (0.7-1.2) mg/dL Glucose 158 H (65-100) mg/dL POC Glucose 166 H (70-105) Calcium 7.8 L (8.4-10.2) mg/dL Magnesium 2.40 H (1.7-2.3) mg/dL 08/05/18 08/05/18 Range/Units 08:21 11:11 RBC (3.65-5.03) M/mm3 Hgb (10.1-14.3) gm/dl Hct (30.3-42.9) % RDW (13.2-15.2) % Seg Neuts % (Manual) (40.0-70.0) % Lymphocytes % (Manual) (13.4-35.0) % Monocytes % (Manual) (0.0-7.3) % Lymphocytes # (Manual) (1.2-5.4) K/mm3 Monocytes # (Manual) (0.0-0.8) K/mm3 Sodium (137-145) mmol/L Chloride (98-107) mmol/L BUN (7-17) mg/dL Creatinine (0.7-1.2) mg/dL Glucose (65-100) mg/dL POC Glucose 178 H 200 H (70-105) Calcium (8.4-10.2) mg/dL Magnesium (1.7-2.3) mg/dL Medications & Allergies - Medications Allergies/Adverse Reactions: Allergies No Known Allergies Allergy (Unverified 07/18/18 20:42) Home Medications: Home Medications Medication Instructions Recorded Confirmed Last Taken Type Furosemide [Lasix] 20 mg PO DAILY 07/19/18 07/19/18 07/18/18 History Insulin Aspart [Novolog Flexpen] 100 unit SQ TID 07/19/18 07/19/18 07/18/18 History Losartan Potassium [Cozaar] 50 mg PO DAILY 07/19/18 07/19/18 07/18/18 History Metoprolol Xl [Metoprolol 25 mg PO QDAY 07/19/18 07/19/18 07/18/18 History SUCCINATE ER TAB] Naproxen 500 mg PO BID 07/19/18 07/19/18 07/18/18 History Ranitidine HCl [Acid Control] 150 mg PO BID 07/19/18 07/19/18 07/18/18 History Active Medications: Generic Name Dose Route Start Last Admin Trade Name Freq PRN Reason Stop Dose Admin Albuterol 2.5 mg 07/24/18 20:13 07/24/18 20:31 Proventil IH 2.5 mg Q4HRT PRN Administration Shortness Of Breath Albuterol/Ipratropium 1 ampul 07/25/18 14:00 08/05/18 07:55 Duoneb *Not For Prn Use* IH 1 ampul TIDRT TRINY Administration Clonidine HCl 0.3 mg 07/25/18 10:00 08/01/18 18:08 Catapres-Tts Patch TD 0.3 mg Mo TRINY Administration Dextrose 50 ml 07/19/18 02:51 D50w (25gm) Syringe IV PRN PRN Hypoglycemia Hydralazine HCl 20 mg 07/27/18 16:53 07/31/18 21:54 Apresoline IV 20 mg Q4HR PRN Administration Hypertension Piperacillin Sod/Tazobactam Sod 2.25 gm in 50 mls @ 100 mls/hr 08/03/18 14:00 08/05/18 06:04 Zosyn/Ns 2.25 Gm/50ml IV 100 mls/hr Q8HR [facility] Administration Protocol Amino Acids/Electrolytes/Dextrose 1,999.92 mls @ 83.33 mls/hr 08/04/18 20:00 08/04/18 21:48 Tpn Adult IV 08/05/18 19:59 83.33 mls/hr DAILY@1999 [facility] Administration Protocol Fat Emulsion Intravenous 250 mls @ 21 mls/hr 08/05/18 20:00 Intralipid 20% IV 08/06/18 08:00 DAILY@1999 [facility] Amino Acids/Electrolytes/Dextrose 1,999.92 mls @ 83.33 mls/hr 08/05/18 20:00 Tpn Adult IV 08/06/18 19:59 DAILY@1999 [facility] Protocol Insulin Glargine 20 units 08/02/18 11:00 08/05/18 09:18 Lantus SUB-Q 20 units DAILY TRINY Administration Insulin Human Lispro 0 unit 07/19/18 03:00 08/05/18 11:44 Humalog SUB-Q 4 unit Q4H [facility] Administration Protocol Labetalol HCl 10 mg 07/26/18 12:37 08/01/18 16:12 Normodyne IV 10 mg Q4H PRN Administration Blood Pressure Morphine Sulfate 2 mg 08/03/18 00:21 08/05/18 12:12 Morphine IV 2 mg Q3H PRN Administration Pain, Moderate (4-6) Multi-Ingred Cream/Lotion/Oil/Oint 1 applic 08/01/18 11:56 Artificial Tears Ophth Oint OU Q4HR PRN Dry Eye(s) Pantoprazole Sodium 40 mg 08/02/18 10:00 08/05/18 09:18 Protonix IV 40 mg QDAY TRINY Administration
--- NOTE | 2018-08-05 13:25 | Progress Note ---
Assessment and Plan POD # 4 Pt status quo. labs as below. was not transfused Abd soft. 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 surgically stable monitor h/h and renal function d/c contreras as per onc eval continue present care Objective Vital Signs - 12hr 08/05/18 08/05/18 08/05/18 02:00 03:00 04:00 Temperature 99.5 F Pulse Rate 95 H 90 81 Pulse Rate [ Anterior Bilateral] Pulse Rate [ 80 From Monitor] Respiratory 19 18 14 Rate Respiratory Rate [Anterior Bilateral] Blood Pressure 144/63 124/55 119/49 O2 Sat by Pulse 95 94 96 Oximetry 08/05/18 08/05/18 08/05/18 05:00 06:00 07:01 Temperature Pulse Rate 85 79 76 Pulse Rate [ Anterior Bilateral] Pulse Rate [ From Monitor] Respiratory 15 16 14 Rate Respiratory Rate [Anterior Bilateral] Blood Pressure 137/60 135/52 121/49 O2 Sat by Pulse 95 95 97 Oximetry 08/05/18 08/05/18 08/05/18 07:55 07:56 08:00 Temperature Pulse Rate Pulse Rate [ 76 Anterior Bilateral] Pulse Rate [ 93 H From Monitor] Respiratory 26 H Rate Respiratory 16 Rate [Anterior Bilateral] Blood Pressure O2 Sat by Pulse 99 93 Oximetry 08/05/18 08/05/18 08/05/18 08:01 08:05 08:38 Temperature 97.2 F L Pulse Rate 80 Pulse Rate [ 78 Anterior Bilateral] Pulse Rate [ From Monitor] Respiratory 15 Rate Respiratory 18 Rate [Anterior Bilateral] Blood Pressure 143/70 O2 Sat by Pulse 97 Oximetry 08/05/18 08/05/18 08/05/18 09:00 10:00 11:37 Temperature 98.3 F Pulse Rate 74 72 Pulse Rate [ Anterior Bilateral] Pulse Rate [ From Monitor] Respiratory 14 13 Rate Respiratory Rate [Anterior Bilateral] Blood Pressure 118/48 122/53 O2 Sat by Pulse 97 98 Oximetry - Labs 08/05/18 05:23 08/05/18 05:23 Diabetes panel 08/05/18 Range/Units 05:23 Sodium 147 H (137-145) mmol/L Potassium 4.2 (3.6-5.0) mmol/L Chloride 111.9 H (98-107) mmol/L Carbon Dioxide 22 (22-30) mmol/L BUN 94 H (7-17) mg/dL Creatinine 2.1 H (0.7-1.2) mg/dL Glucose 158 H (65-100) mg/dL Calcium 7.8 L (8.4-10.2) mg/dL Calcium panel 08/05/18 Range/Units 05:23 Calcium 7.8 L (8.4-10.2) mg/dL Phosphorus 4.40 D (2.5-4.5) mg/dL Pituitary panel 08/05/18 Range/Units 05:23 Sodium 147 H (137-145) mmol/L Potassium 4.2 (3.6-5.0) mmol/L Chloride 111.9 H (98-107) mmol/L Carbon Dioxide 22 (22-30) mmol/L BUN 94 H (7-17) mg/dL Creatinine 2.1 H (0.7-1.2) mg/dL Glucose 158 H (65-100) mg/dL Calcium 7.8 L (8.4-10.2) mg/dL Adrenal panel 08/05/18 Range/Units 05:23 Sodium 147 H (137-145) mmol/L Potassium 4.2 (3.6-5.0) mmol/L Chloride 111.9 H (98-107) mmol/L Carbon Dioxide 22 (22-30) mmol/L BUN 94 H (7-17) mg/dL Creatinine 2.1 H (0.7-1.2) mg/dL Glucose 158 H (65-100) mg/dL Calcium 7.8 L (8.4-10.2) mg/dL
--- NOTE | 2018-08-05 14:55 | Progress Note ---
Assessment and Plan Assessment and plan: Patient is 87 yo woman with a history of DM, CHF and hypertension who presents to [facility] ED via EMS with AMS, falling at home, feeling hot, blood glucose was in the 40s and she was given oral glucose by EMS prior to arrival. Associated with falling is diaphoresis, lose of appetite, n/v, sob x 1 day. This is patient 3rd fall at home. She did complain of right upper quadrant, sharp intermittent severe, aggravated by certain movement, relieved by different positions. She was found to have bowel perforation. * CTAP with IV contrast IMPRESSION: Extensive inflammatory changes involving the cecum and proximal ascending colon extending posteriorly with pericolonic stranding. Diagnostic consideration would include appendicitis with perforation presuming the patient still has her appendix. The other possibility is severe diverticulitis with probable perforation. Extensive colonic diverticulosis. Uncomplicated cysts in both kidneys. Hysterectomy. Multilevel disc degeneration in the lumbar spine. Incidental note is made of a crescent-shaped area of mural thrombus at the thoracoabdominal junction involving the aorta. A remote dissection cannot entirely be excluded. * CTA chest pains IMPRESSION: 1. No evidence of pulmonary embolism. 2. Mild cardiomegaly 3. Lingular subsegmental atelectasis versus parenchymal scar 4. 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 No evidence of acute infarct or intracranial hemorrhage. 2. White matter lucency consistent with chronic microvascular ischemic disease. * pCXR IMPRESSION: Subpleural effusion and cardiomegaly * 07/25/[address] abd/pelvis without contrast FINDINGS: Small layering pleural effusions have developed measuring up to 1 cm in thickness. Heart size is stable at the upper limits of normal. The visualized lung bases are adequately aerated. The masslike lesion in the ascending colon appears stable in size and contour. There is no evidence for obstruction or leakage of contrast. There are scattered diverticula in the proximal colon. Mild inflammatory changes adjacent to this masslike lesion have decreased by 20% since the previous exam. It is unclear if this represents a colon mass or is associated with diverticulitis. I favor a colon mass. The liver, biliary system, pancreas, spleen, kidneys and adrenal glands remain unremarkable. The pelvic viscera are within normal limits. Hysterectomy changes are noted. IMPRESSION: Inflammatory changes adjacent to the right colon mass or diverticulitis has improved slightly. Overall, no overwhelming change. No new acute process. New small layering pleural effusions. * 08/01/[address] Wooten Procedure: Exploratory laparotomy, lysis of extensive adhesion, right hemicolectomy with ileocolic anastomosis "Findings: A very large mass extending outside of the colon into the retroperitoneum in the area of the hepatic flexure. Also, extensive adhesions involving the entire omentum as well as pelvis including small bowel deep in the pelvis. Technically difficult and challenging case....Final Impression: Stage IV cancer with extension into the surrounding fat and retroperitoneum. 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, s/p surgery 08/01/18, still intubated, s/p extubated 08/02/18 and transferred to IMCU: continue 02 support Hypertensive urgency, Bp controlled on the following: catapress patch, iv enalapril (will have to stop because worsening renal function), iv hydralazine and iv labetalol, ARF, ATN suspected: Nephrology following Recurrent falls with episodes of hypoglycemia: hold DM medication(s), treated with dextrose, following accuchecks Sepsis with suspected perforated bowel from colon cancer s/p surgery Acute metabolic encephalopathy: treat the hypoglycemia and sepsis 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 Jeter. Hold of on hospice, chance of chemotherapy if she gets better from current illness. Her renal failure/Cr has plateau. Still on TPN. CCT 31 minutes History Interval history: Patient was seen and examined. Follow-up on current diagnosis of bowel perforation. Overnight uneventful. Patient denies any chest pain, shortness breath, nausea/vomiting or severe headaches. Imaging, nursing note, chart, labs and old chart reviewed. Discussed with patient. Hospitalist Physical - Physical exam Narrative exam: Gen: WDWN, NAD, Awake, Alert, Orientated x 1 HEENT: NCAT, EOMI, PERRL, OP Clear Neck: supple, no adenopathy, no thyromegaly, no JVD CVS/Heart: RRR, normal S1S2, pulses present bilaterally Chest/Lungs: diminished bs bilateral, Symmetrical chest expansion, good air entry bilaterally GI/Abdomen: soft diffusely tender, good bowel sounds, no guarding or rebound /Bladder: no suprapubic tenderness, no CVA or paraspinal tenderness Extermity/Skin: no c/c/e, no obvious rash MSK: FROM x 4 Neuro: CN 2-12 grossly intact, no new focal deficits Psych: calm - Constitutional Vitals: Temp Pulse Resp BP Pulse Ox 98.3 F 73 13 133/55 96 08/05/18 11:37 08/05/18 13:00 08/05/18 13:00 08/05/18 13:00 08/05/18 13:00 General appearance: Present: no acute distress, well-nourished Results - Labs CBC & Chem 7: 08/05/18 05:23 08/05/18 05:23 Labs: Laboratory Last Values WBC 8.7 K/mm3 (4.5-11.0) 08/05/18 05:23 RBC 2.96 M/mm3 (3.65-5.03) L 08/05/18 05:23 Hgb 8.5 gm/dl (10.1-14.3) L 08/05/18 05:23 Hct 26.0 % (30.3-42.9) L 08/05/18 05:23 MCV 88 fl (79-97) 08/05/18 05:23 MCH 29 pg (28-32) 08/05/18 05:23 MCHC 33 % (30-34) 08/05/18 05:23 RDW 19.9 % (13.2-15.2) H 08/05/18 05:23 Plt Count 174 K/mm3 (140-440) 08/05/18 05:23 Lymph % (Auto) 7.7 % (13.4-35.0) L 08/04/18 04:15 Saunders % (Auto) Addiction Professional 08/05/18 05:23 Eos % (Auto) 1.0 % (0.0-4.3) 08/04/18 04:15 Baso % (Auto) 0.4 % (0.0-1.8) 08/04/18 04:15 Lymph # 0.9 K/mm3 (1.2-5.4) L 08/04/18 04:15 Saunders # 1.1 K/mm3 (0.0-0.8) H 08/04/18 04:15 Eos # 0.1 K/mm3 (0.0-0.4) 08/04/18 04:15 Baso # 0.0 K/mm3 (0.0-0.1) 08/04/18 04:15 Add Manual Diff Complete 08/05/18 05:23 Total Counted 100 08/05/18 05:23 Seg Neutrophils % 80.6 % (40.0-70.0) H 08/04/18 04:15 Seg Neuts % (Manual) 78.0 % (40.0-70.0) H 08/05/18 05:23 Band Neutrophils % 0 % 08/05/18 05:23 Lymphocytes % (Manual) 11.0 % (13.4-35.0) L 08/05/18 05:23 Reactive Lymphs % (Man) 0 % 08/05/18 05:23 Monocytes % (Manual) 10.0 % (0.0-7.3) H 08/05/18 05:23 Eosinophils % (Manual) 0 % (0.0-4.3) 08/05/18 05:23 Basophils % (Manual) 1.0 % (0.0-1.8) 08/05/18 05:23 Metamyelocytes % 0 % 08/05/18 05:23 Myelocytes % 0 % 08/05/18 05:23 Promyelocytes % 0 % 08/05/18 05:23 Blast Cells % 0 % 08/05/18 05:23 Nucleated RBC % Not Reportable 08/05/18 05:23 Seg Neutrophils # 8.9 K/mm3 (1.8-7.7) H 08/04/18 04:15 Seg Neutrophils # Man 6.8 K/mm3 (1.8-7.7) 08/05/18 05:23 Band Neutrophils # 0.0 K/mm3 08/05/18 05:23 Lymphocytes # (Manual) 1.0 K/mm3 (1.2-5.4) L 08/05/18 05:23 Abs React Lymphs (Man) 0.0 K/mm3 08/05/18 05:23 Monocytes # (Manual) 0.9 K/mm3 (0.0-0.8) H 08/05/18 05:23 Eosinophils # (Manual) 0.0 K/mm3 (0.0-0.4) 08/05/18 05:23 Basophils # (Manual) 0.1 K/mm3 (0.0-0.1) 08/05/18 05:23 Metamyelocytes # 0.0 K/mm3 08/05/18 05:23 Myelocytes # 0.0 K/mm3 08/05/18 05:23 Promyelocytes # 0.0 K/mm3 08/05/18 05:23 Blast Cells # 0.0 K/mm3 08/05/18 05:23 WBC Morphology Not Reportable 08/05/18 05:23 Hypersegmented Neuts Not Reportable 08/05/18 05:23 Hyposegmented Neuts Not Reportable 08/05/18 05:23 Hypogranular Neuts Not Reportable 08/05/18 05:23 Smudge Cells Not Reportable 08/05/18 05:23 Toxic Granulation Not Reportable 08/05/18 05:23 Toxic Vacuolation Not Reportable 08/05/18 05:23 Dohle Bodies Not Reportable 08/05/18 05:23 Pelger-Huet Anomaly Not Reportable 08/05/18 05:23 Richard Rods Not Reportable 08/05/18 05:23 Platelet Estimate Consistent w auto 08/05/18 05:23 Clumped Platelets Not Reportable 08/05/18 05:23 Plt Clumps, EDTA Not Reportable 08/05/18 05:23 Large Platelets Not Reportable 08/05/18 05:23 Giant Platelets Not Reportable 08/05/18 05:23 Platelet Satelliting Not Reportable 08/05/18 05:23 Plt Morphology Comment Not Reportable 08/05/18 05:23 RBC Morphology Not Reportable 08/05/18 05:23 Dimorphic RBCs Not Reportable 08/05/18 05:23 Polychromasia Not Reportable 08/05/18 05:23 Hypochromasia Few 08/05/18 05:23 Poikilocytosis 1+ 08/05/18 05:23 Anisocytosis 1+ 08/05/18 05:23 Microcytosis Not Reportable 08/05/18 05:23 Macrocytosis Not Reportable 08/05/18 05:23 Spherocytes Not Reportable 08/05/18 05:23 Pappenheimer Bodies Not Reportable 08/05/18 05:23 Sickle Cells Not Reportable 08/05/18 05:23 Target Cells Not Reportable 08/05/18 05:23 Tear Drop Cells Not Reportable 08/05/18 05:23 Ovalocytes Few 08/05/18 05:23 Helmet Cells Not Reportable 08/05/18 05:23 Varela-Nowata Bodies Not Reportable 08/05/18 05:23 Drain Rings Not Reportable 08/05/18 05:23 Betzy Cells Not Reportable 08/05/18 05:23 Bite Cells Not Reportable 08/05/18 05:23 Crenated Cell Not Reportable 08/05/18 05:23 Elliptocytes Few 08/05/18 05:23 Acanthocytes (Spur) Not Reportable 08/05/18 05:23 Rouleaux Not Reportable 08/05/18 05:23 Hemoglobin C Crystals Not Reportable 08/05/18 05:23 Schistocytes Not Reportable 08/05/18 05:23 Malaria parasites Not Reportable 08/05/18 05:23 Michi Bodies Not Reportable 08/05/18 05:23 Hem Pathologist Commnt No 08/05/18 05:23 PT 14.5 Sec. (12.2-14.9) 07/28/18 05:27 INR 1.09 (0.87-1.13) 07/28/18 05:27 APTT 23.2 Sec. (24.2-36.6) L 07/18/18 20:48 POC ABG pH 7.409 (7.35-7.45) 08/02/18 09:56 POC ABG pCO2 38.5 (35-45) 08/02/18 09:56 POC ABG pO2 70 (80-105) L 08/02/18 09:56 POC ABG HCO3 24.3 08/02/18 09:56 POC ABG Total CO2 25 08/02/18 09:56 POC ABG O2 Sat 94 08/02/18 09:56 POC ABG Base Excess 0 08/02/18 09:56 FiO2 40 % 08/02/18 09:56 Sodium 147 mmol/L (137-145) H 08/05/18 05:23 Potassium 4.2 mmol/L (3.6-5.0) 08/05/18 05:23 Chloride 111.9 mmol/L (98-107) H 08/05/18 05:23 Carbon Dioxide 22 mmol/L (22-30) 08/05/18 05:23 Anion Gap 17 mmol/L 08/05/18 05:23 BUN 94 mg/dL (7-17) H 08/05/18 05:23 Creatinine 2.1 mg/dL (0.7-1.2) H 08/05/18 05:23 Estimated GFR 27 ml/min 08/05/18 05:23 BUN/Creatinine Ratio 45 % 08/05/18 05:23 Glucose 158 mg/dL (65-100) H 08/05/18 05:23 POC Glucose 200 (70-105) H 08/05/18 11:11 Lactic Acid 1.10 mmol/L (0.7-2.0) 07/19/18 17:04 Calcium 7.8 mg/dL (8.4-10.2) L 08/05/18 05:23 Phosphorus 4.40 mg/dL (2.5-4.5) D 08/05/18 05:23 Magnesium 2.40 mg/dL (1.7-2.3) H 08/05/18 05:23 Total Bilirubin 0.30 mg/dL (0.1-1.2) 08/03/18 04:42 AST 24 units/L (5-40) 08/03/18 04:42 ALT 10 units/L (7-56) 08/03/18 04:42 Alkaline Phosphatase 55 units/L (35-129) 08/03/18 04:42 Total Creatine Kinase 48 units/L (30-135) 07/18/18 20:48 CK-MB (CK-2) < 1.0 ng/mL (0.0-4.0) 07/18/18 20:48 CK-MB (CK-2) Rel Index 2.0 (0-4) 07/18/18 20:48 Troponin T 0.025 ng/mL (0.00-0.029) 07/18/18 20:48 C-Reactive Protein 4.30 mg/dL (0.00-1.30) H 07/25/18 03:58 NT-Pro-B Natriuret Pep 462.4 pg/mL (0-900) 07/18/18 20:48 Total Protein 5.5 g/dL (6.3-8.2) L 08/03/18 04:42 Albumin 2.5 g/dL (3.9-5) L 08/03/18 04:42 Albumin/Globulin Ratio 0.8 % 08/03/18 04:42 Carcinoembryonic Ag See scanned result 07/22/18 13:47 Urine Color Yellow (Yellow) 07/18/18 21:49 Urine Turbidity Clear (Clear) 07/18/18 21:49 Urine pH 5.0 (5.0-7.0) 07/18/18 21:49 Ur Specific [place] 1.019 (1.003-1.030) 07/18/18 21:49 Urine Protein <15 mg/dl mg/dL (Negative) 07/18/18 21:49 Urine Glucose (UA) Neg mg/dL (Negative) 07/18/18 21:49 Urine Ketones Neg mg/dL (Negative) 07/18/18 21:49 Urine Blood Neg (Negative) 07/18/18 21:49 Urine Nitrite Neg (Negative) 07/18/18 21:49 Urine Bilirubin Neg (Negative) 07/18/18 21:49 Urine Urobilinogen 4.0 mg/dL (<2.0) 07/18/18 21:49 Ur Leukocyte Esterase Neg (Negative) 07/18/18 21:49 Urine WBC (Auto) 2.0 /HPF (0.0-6.0) 07/18/18 21:49 Urine RBC (Auto) < 1.0 /HPF (0.0-6.0) 07/18/18 21:49 U Epithel Cells (Auto) 3.0 /HPF (0-13.0) 07/18/18 21:49 Urine Mucus Few /HPF 07/18/18 21:49 Blood Type B POSITIVE 08/04/18 16:04 Antibody Screen Negative 08/04/18 16:04 Crossmatch See Detail 08/01/18 07:18 Nutrition/Malnutrition Assess - Dietary Evaluation Nutrition/Malnutrition Findings: Nutrition Notes Start: 07/22/18 14:00 Freq: Status: Active Protocol: Document 08/05/18 08:27 TW (Rec: 08/05/18 08:31 TW [id number]) Co-Sign 08/05/18 08:27 LP Nutrition Notes Initial or Follow up Reassessment Current Diagnosis Diabetes Sepsis Hypertension Heart Failure Other Pertinent Diagnosis Stage IV CA s/p exp lap with ( R) colectomy Current Diet CPN at 83.33mL/hr Labs/Tests Phos: 4.4 M.4 BUN: 94 Cr: 2.1 Pertinent Medications Lantus Humalog Height 5 ft 5 in Weight 110.9 kg [place] Body Weight (lbs) 125.0 BMI 40.6 Subjective/Other Information CPN day 14. CPN infusing at goal rate. Percent of energy/protein needs met: 110%/112% Burn Absent Trauma Absent #1 Nutrition Diagnosis Altered GI function Diagnosis Progress(for reassessment Continues documentation) Is patient on ventilator? No Is Patient Ambulatory and/or Out of Bed No REE-([facility]-confined to bed) 1866.780 Kcal/Kg value to use for calculation 13 Approximate Energy Requirements Using 1442 kcal/Kg Additional Notes PRO needs 1-1.2g/kg adjBW: 84- 101g/day (AdjBW 84kg) Fluid needs 1ml/kcal Nutrition Intervention Change Diet Order: CPN Nutrition Support: CPN at 83.33 mL/hr. Osmolarity 1028, Na: 100 mEq, Chloride Acetate: 0:100, MVI, Lipids Kcal 1,577 Protein (gm) 80 Carbohydrates (gm) 225 Fat (gm) 50 Fluid (mL) 2,250 Fiber (gm) 0 Goal #1 PN to meet 65-70% energy and at least 80% pro needs Anticipated Discharge Needs: Unable to identify at this time Follow-Up By: 08/06/18 Additional Comments Labs in am: BMP, Mg, Phos
--- NOTE | 2018-08-05 17:00 | Progress Note ---
Subjective Principal diagnosis: Sepsis and Colitis Interval history: Patient was seen today for follow-up of multiple renal related issues No complaints of any chest pain pressure or shortness of breath Interdisciplinary notes that also reviewed she appears to be doing better Events of 24 hours vitals labs intake output medications were reviewed Past medical history: Reviewed Family history: Reviewed Social history: Reviewed Allergies: Reviewed Physical examination: Vitals: Reviewed HEENT: No pallor or icterus oral mucosa moist Neck: Supple no JVD no thyromegaly Chest: Bilateral clear to auscultation anteriorly Heart: Regular rate and rhythm S1-S2 heard no S3-S4 Abdomen: Soft nontender no voluntary guarding rigidity rebound postoperative abdomen Extremity: Dry skin less than 1+ peripheral edema Psychiatric: No evidence of agitation and aggression noted Dermatology: No petechial rashes Labs and x-rays: Reviewed from today Assessment and plan Acute kidney injury: Renal function is stable patient is improving from renal standpoint there is no indication for renal replacement therapy at this time cre atinine is 2.1 which was 2.3 yesterday baseline creatinine is around 0.5 Etiology of renal failure appears to be due to mostly radiocontrast, ATN possibility of drug-induced official nephritis cannot be ruled out, also has had abdominal sepsis Patiently continued to monitor renal function Mild hypernatremia to monitor for now judicious hydration due to her respiratory status and some hypoxemia noted few days ago Diabetes mellitus type 2 appears to be slowly improving Hypocalcemia improving now, Clinically she seems to be doing better as of today her hemoglobin is 8.5 platelet count 174,000 We'll continue to follow and make recommendation for renal standpoint Objective - Vital Signs Vital signs: Vital Signs - 12hr 08/05/18 08/05/18 08/05/18 05:00 06:00 07:01 Temperature Pulse Rate 85 79 76 Pulse Rate [ Anterior Bilateral] Pulse Rate [ From Monitor] Respiratory 15 16 14 Rate Respiratory Rate [Anterior Bilateral] Blood Pressure 137/60 135/52 121/49 O2 Sat by Pulse 95 95 97 Oximetry 08/05/18 08/05/18 08/05/18 07:55 07:56 08:00 Temperature Pulse Rate Pulse Rate [ 76 Anterior Bilateral] Pulse Rate [ 93 H From Monitor] Respiratory 26 H Rate Respiratory 16 Rate [Anterior Bilateral] Blood Pressure O2 Sat by Pulse 99 93 Oximetry 08/05/18 08/05/18 08/05/18 08:01 08:05 08:38 Temperature 97.2 F L Pulse Rate 80 Pulse Rate [ 78 Anterior Bilateral] Pulse Rate [ From Monitor] Respiratory 15 Rate Respiratory 18 Rate [Anterior Bilateral] Blood Pressure 143/70 O2 Sat by Pulse 97 Oximetry 08/05/18 08/05/18 08/05/18 09:00 10:00 11:00 Temperature Pulse Rate 74 72 71 Pulse Rate [ Anterior Bilateral] Pulse Rate [ From Monitor] Respiratory 14 13 13 Rate Respiratory Rate [Anterior Bilateral] Blood Pressure 118/48 122/53 119/52 O2 Sat by Pulse 97 98 98 Oximetry 08/05/18 08/05/18 08/05/18 11:37 12:00 12:01 Temperature 98.3 F Pulse Rate 72 Pulse Rate [ Anterior Bilateral] Pulse Rate [ 86 From Monitor] Respiratory 24 13 Rate Respiratory Rate [Anterior Bilateral] Blood Pressure 129/57 O2 Sat by Pulse 95 98 Oximetry 08/05/18 13:00 Temperature Pulse Rate 73 Pulse Rate [ Anterior Bilateral] Pulse Rate [ From Monitor] Respiratory 13 Rate Respiratory Rate [Anterior Bilateral] Blood Pressure 133/55 O2 Sat by Pulse 96 Oximetry - Lab 08/05/18 05:23 08/05/18 05:23 Most recent lab results Calcium 7.8 mg/dL (8.4-10.2) L 08/05/18 05:23 Phosphorus 4.40 mg/dL (2.5-4.5) D 08/05/18 05:23 Magnesium 2.40 mg/dL (1.7-2.3) H 08/05/18 05:23 Medications & Allergies - Medications Allergies/Adverse Reactions: Allergies No Known Allergies Allergy (Unverified 07/18/18 20:42) Home Medications: Home Medications Medication Instructions Recorded Confirmed Last Taken Type Furosemide [Lasix] 20 mg PO DAILY 07/19/18 07/19/18 07/18/18 History Insulin Aspart [Novolog Flexpen] 100 unit SQ TID 07/19/18 07/19/18 07/18/18 History Losartan Potassium [Cozaar] 50 mg PO DAILY 07/19/18 07/19/18 07/18/18 History Metoprolol Xl [Metoprolol 25 mg PO QDAY 07/19/18 07/19/18 07/18/18 History SUCCINATE ER TAB] Naproxen 500 mg PO BID 07/19/18 07/19/18 07/18/18 History Ranitidine HCl [Acid Control] 150 mg PO BID 07/19/18 07/19/18 07/18/18 History Active Medications: Generic Name Dose Route Start Last Admin Trade Name Freq PRN Reason Stop Dose Admin Albuterol 2.5 mg 07/24/18 20:13 07/24/18 20:31 Proventil IH 2.5 mg Q4HRT PRN Administration Shortness Of Breath Albuterol/Ipratropium 1 ampul 07/25/18 14:00 08/05/18 07:55 Duoneb *Not For Prn Use* IH 1 ampul TIDRT TRINY Administration Clonidine HCl 0.3 mg 07/25/18 10:00 08/01/18 18:08 Catapres-Tts Patch TD 0.3 mg Mo TRINY Administration Dextrose 50 ml 07/19/18 02:51 D50w (25gm) Syringe IV PRN PRN Hypoglycemia Hydralazine HCl 20 mg 07/27/18 16:53 07/31/18 21:54 Apresoline IV 20 mg Q4HR PRN Administration Hypertension Piperacillin Sod/Tazobactam Sod 2.25 gm in 50 mls @ 100 mls/hr 08/03/18 14:00 08/05/18 14:19 Zosyn/Ns 2.25 Gm/50ml IV 100 mls/hr Q8HR TRINY Administration Protocol Amino Acids/Electrolytes/Dextrose 1,999.92 mls @ 83.33 mls/hr 08/04/18 20:00 08/04/18 21:48 Tpn Adult IV 08/05/18 19:59 83.33 mls/hr DAILY@[email or web address] [facility] Administration Protocol Fat Emulsion Intravenous 250 mls @ 21 mls/hr 08/05/18 20:00 Intralipid 20% IV 08/06/18 08:00 DAILY@[email or web address] [facility] Amino Acids/Electrolytes/Dextrose 1,999.92 mls @ 83.33 mls/hr 08/05/18 20:00 Tpn Adult IV 08/06/18 19:59 DAILY@[email or web address] [facility] Protocol Insulin Glargine 20 units 08/02/18 11:00 08/05/18 09:18 Lantus SUB-Q 20 units DAILY TRINY Administration Insulin Human Lispro 0 unit 07/19/18 03:00 08/05/18 11:44 Humalog SUB-Q 4 unit Q4H TRINY Administration Protocol Labetalol HCl 10 mg 07/26/18 12:37 08/01/18 16:12 Normodyne IV 10 mg Q4H PRN Administration Blood Pressure Morphine Sulfate 2 mg 08/03/18 00:21 08/05/18 12:12 Morphine IV 2 mg Q3H PRN Administration Pain, Moderate (4-6) Multi-Ingred Cream/Lotion/Oil/Oint 1 applic 08/01/18 11:56 Artificial Tears Ophth Oint OU Q4HR PRN Dry Eye(s) Pantoprazole Sodium 40 mg 08/02/18 10:00 08/05/18 09:18 Protonix IV 40 mg QDAY TRINY Administration
--- NOTE | 2018-08-05 18:57 | Hem/Onc Progress Note ---
Assessment and Plan 1. T4a N0 Mx adenocarcinoma. 2. A 12 lymph nodes were negative. 3. History of diabetes. 4. History of hypertension. 5. History of fall. 6. History of metabolic encephalopathy. 7. 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 8. History of respiratory failure. 9. History of renal impairment. 10. As per the nursing staff, the patient is DNR. The patient received blood transfusion for anemia. 11. The patient is elderly. 12. As per the information, the patient had bowel perforation, hence labeled as stage 4. 13. The patient was intubated at one time during this admission. 14. I will follow the patient. d/w dr meza d/w family pt was using a walker before coming if pts performance improves - willl look into immune based or targetted therapy - Patient Problems (1) Colon cancer Current Visit: Yes Status: Acute Subjective Date of service: 08/05/18 Principal diagnosis: colon ca Interval history: weak Objective - Constitutional Vitals: Last Vital Signs Temp 99.0 F 08/05/18 16:00 Pulse 73 08/05/18 18:00 Resp 14 08/05/18 18:00 BP 138/57 08/05/18 18:00 Pulse Ox 95 08/05/18 18:00 Pain Intensity (0-10): 1/10 (abdo) General appearance: mild distress Performance status: 3-limited selfcare - EENT Eyes: EOM intact ENT: clear oral mucosa Lymph node exam: negative cervical, negative supraclavicular - Respiratory Respiratory effort: Positive: normal Respiratory: bilateral: diminished - Cardiovascular Heart Sounds: Present: S1 & S2 Extremities: No edema - Gastrointestinal General gastrointestinal: Present: soft, other (s/p sx) Rectal Exam: deferred - Genitourinary Female genitourinary: Present: deferred - Integumentary Integumentary: warm - Neurologic Neurologic: other (weakness) - Labs Lab Results: Laboratory Results - last 24 hr 08/04/18 08/05/18 08/05/18 20:10 01:26 05:23 WBC RBC Hgb Hct MCV MCH MCHC RDW Plt Count [place] % (Auto) Add Manual Diff Total Counted Seg Neuts % (Manual) Band Neutrophils % Lymphocytes % (Manual) Reactive Lymphs % (Man) Monocytes % (Manual) Eosinophils % (Manual) Basophils % (Manual) Metamyelocytes % Myelocytes % Promyelocytes % Blast Cells % Nucleated RBC % Seg Neutrophils # Man Band Neutrophils # Lymphocytes # (Manual) Abs React Lymphs (Man) Monocytes # (Manual) Eosinophils # (Manual) Basophils # (Manual) Metamyelocytes # Myelocytes # Promyelocytes # Blast Cells # WBC Morphology Hypersegmented Neuts Hyposegmented Neuts Hypogranular Neuts Smudge Cells Toxic Granulation Toxic Vacuolation Dohle Bodies Pelger-Huet Anomaly Richard Rods Platelet Estimate Clumped Platelets Plt Clumps, EDTA Large Platelets Giant Platelets Platelet Satelliting Plt Morphology Comment RBC Morphology Dimorphic RBCs Polychromasia Hypochromasia Poikilocytosis Anisocytosis Microcytosis Macrocytosis Spherocytes Pappenheimer Bodies Sickle Cells Target Cells Tear Drop Cells Ovalocytes Helmet Cells Varela-[place] Bodies [place] Rings [place] Cells Bite Cells Crenated Cell Elliptocytes Acanthocytes (Spur) Rouleaux Hemoglobin C Crystals Schistocytes Malaria parasites Michi Bodies Hem Pathologist Commnt Sodium 147 H Potassium 4.2 Chloride 111.9 H Carbon Dioxide 22 Anion Gap 17 BUN 94 H Creatinine 2.1 H Estimated GFR 27 BUN/Creatinine Ratio 45 Glucose 158 H POC Glucose 201 H 170 H Calcium 7.8 L Phosphorus 4.40 D Magnesium 2.40 H 08/05/18 08/05/18 08/05/18 05:23 05:42 08:21 WBC 8.7 RBC 2.96 L Hgb 8.5 L Hct 26.0 L MCV 88 MCH 29 MCHC 33 RDW 19.9 H Plt Count 174 [place] % (Auto) Script Worker Add Manual Diff Complete Total Counted 100 Seg Neuts % (Manual) 78.0 H Band Neutrophils % 0 Lymphocytes % (Manual) 11.0 L Reactive Lymphs % (Man) 0 Monocytes % (Manual) 10.0 H Eosinophils % (Manual) 0 Basophils % (Manual) 1.0 Metamyelocytes % 0 Myelocytes % 0 Promyelocytes % 0 Blast Cells % 0 Nucleated RBC % Not Reportable Seg Neutrophils # Man 6.8 Band Neutrophils # 0.0 Lymphocytes # (Manual) 1.0 L Abs React Lymphs (Man) 0.0 Monocytes # (Manual) 0.9 H Eosinophils # (Manual) 0.0 Basophils # (Manual) 0.1 Metamyelocytes # 0.0 Myelocytes # 0.0 Promyelocytes # 0.0 Blast Cells # 0.0 WBC Morphology Not Reportable Hypersegmented Neuts Not Reportable Hyposegmented Neuts Not Reportable Hypogranular Neuts Not Reportable Smudge Cells Not Reportable Toxic Granulation Not Reportable Toxic Vacuolation Not Reportable Dohle Bodies Not Reportable Pelger-Huet Anomaly Not Reportable Richard Rods Not Reportable Platelet Estimate Consistent w auto Clumped Platelets Not Reportable Plt Clumps, EDTA Not Reportable Large Platelets Not Reportable Giant Platelets Not Reportable Platelet Satelliting Not Reportable Plt Morphology Comment Not Reportable RBC Morphology Not Reportable Dimorphic RBCs Not Reportable Polychromasia Not Reportable Hypochromasia Few Poikilocytosis 1+ Anisocytosis 1+ Microcytosis Not Reportable Macrocytosis Not Reportable Spherocytes Not Reportable Pappenheimer Bodies Not Reportable Sickle Cells Not Reportable Target Cells Not Reportable Tear Drop Cells Not Reportable Ovalocytes Few Helmet Cells Not Reportable V[place] Bodies Not Reportable [place] Rings Not Reportable [place] Cells Not Reportable Bite Cells Not Reportable Crenated Cell Not Reportable Elliptocytes Few Acanthocytes (Spur) Not Reportable Rouleaux Not Reportable Hemoglobin C Crystals Not Reportable Schistocytes Not Reportable Malaria parasites Not Reportable Michi Bodies Not Reportable Hem Pathologist Commnt No Sodium Potassium Chloride Carbon Dioxide Anion Gap BUN Creatinine Estimated GFR BUN/Creatinine Ratio Glucose POC Glucose 166 H 178 H Calcium Phosphorus Magnesium 08/05/18 08/05/18 11:11 15:53 WBC RBC Hgb Hct MCV MCH MCHC RDW Plt Count [place] % (Auto) Add Manual Diff Total Counted Seg Neuts % (Manual) Band Neutrophils % Lymphocytes % (Manual) Reactive Lymphs % (Man) Monocytes % (Manual) Eosinophils % (Manual) Basophils % (Manual) Metamyelocytes % Myelocytes % Promyelocytes % Blast Cells % Nucleated RBC % Seg Neutrophils # Man Band Neutrophils # Lymphocytes # (Manual) Abs React Lymphs (Man) Monocytes # (Manual) Eosinophils # (Manual) Basophils # (Manual) Metamyelocytes # Myelocytes # Promyelocytes # Blast Cells # WBC Morphology Hypersegmented Neuts Hyposegmented Neuts Hypogranular Neuts Smudge Cells Toxic Granulation Toxic Vacuolation Dohle Bodies Pelger-Huet Anomaly Richard Rods Platelet Estimate Clumped Platelets Plt Clumps, EDTA Large Platelets Giant Platelets Platelet Satelliting Plt Morphology Comment RBC Morphology Dimorphic RBCs Polychromasia Hypochromasia Poikilocytosis Anisocytosis Microcytosis Macrocytosis Spherocytes Pappenheimer Bodies Sickle Cells Target Cells Tear Drop Cells Ovalocytes Helmet Cells Varela-[place] Bodies [place] Rings [place] Cells Bite Cells Crenated Cell Elliptocytes Acanthocytes (Spur) Rouleaux Hemoglobin C Crystals Schistocytes Malaria parasites Michi Bodies Hem Pathologist Commnt Sodium Potassium Chloride Carbon Dioxide Anion Gap BUN Creatinine Estimated GFR BUN/Creatinine Ratio Glucose POC Glucose 200 H 157 H Calcium Phosphorus Magnesium Medications & Allergies - Medications Allergies/Adverse Reactions: Allergies No Known Allergies Allergy (Unverified 07/18/18 20:42) Home Medications: Home Medications Medication Instructions Recorded Confirmed Last Taken Type Furosemide [Lasix] 20 mg PO DAILY 07/19/18 07/19/18 07/18/18 History Insulin Aspart [Novolog Flexpen] 100 unit SQ TID 07/19/18 07/19/18 07/18/18 History Losartan Potassium [Cozaar] 50 mg PO DAILY 07/19/18 07/19/18 07/18/18 History Metoprolol Xl [Metoprolol 25 mg PO QDAY 07/19/18 07/19/18 07/18/18 History SUCCINATE ER TAB] RX: Naproxen 500 mg PO BID 07/19/18 07/19/18 07/18/18 History Ranitidine HCl [Acid Control] 150 mg PO BID 07/19/18 07/19/18 07/18/18 History Active Medications: Generic Name Dose Route Start Last Admin Trade Name Fernandezq PRN Reason Stop Dose Admin Albuterol 2.5 mg 07/24/18 20:13 07/24/18 20:31 Proventil IH 2.5 mg Q4HRT PRN Administration Shortness Of Breath Albuterol/Ipratropium 1 ampul 07/25/18 14:00 08/05/18 07:55 Duoneb *Not For Prn Use* IH 1 ampul TIDRT TRINY Administration Clonidine HCl 0.3 mg 07/25/18 10:00 08/01/18 18:08 Catapres-Tts Patch TD 0.3 mg Mo TRINY Administration Dextrose 50 ml 07/19/18 02:51 D50w (25gm) Syringe IV PRN PRN Hypoglycemia Hydralazine HCl 20 mg 07/27/18 16:53 07/31/18 21:54 Apresoline IV 20 mg Q4HR PRN Administration Hypertension Piperacillin Sod/Tazobactam Sod 2.25 gm in 50 mls @ 100 mls/hr 08/03/18 14:00 08/05/18 14:19 Zosyn/Ns 2.25 Gm/50ml IV 100 mls/hr Q8HR TRINY Administration Protocol Amino Acids/Electrolytes/Dextrose 1,999.92 mls @ 83.33 mls/hr 08/04/18 20:00 08/04/18 21:48 Tpn Adult IV 08/05/18 19:59 83.33 mls/hr DAILY@[email or web address] [facility] Administration Protocol Fat Emulsion Intravenous 250 mls @ 21 mls/hr 08/05/18 20:00 Intralipid 20% IV 08/06/18 08:00 DAILY@[email or web address] [facility] Amino Acids/Electrolytes/Dextrose 1,999.92 mls @ 83.33 mls/hr 08/05/18 20:00 Tpn Adult IV 08/06/18 19:59 DAILY@[email or web address] [facility] Protocol Insulin Glargine 20 units 08/02/18 11:00 08/05/18 09:18 Lantus SUB-Q 20 units DAILY TRINY Administration Insulin Human Lispro 0 unit 07/19/18 03:00 08/05/18 17:01 Humalog SUB-Q 3 unit Q4H [facility] Administration Protocol Labetalol HCl 10 mg 07/26/18 12:37 08/01/18 16:12 Normodyne IV 10 mg Q4H PRN Administration Blood Pressure Morphine Sulfate 2 mg 08/03/18 00:21 08/05/18 12:12 Morphine IV 2 mg Q3H PRN Administration Pain, Moderate (4-6) Multi-Ingred Cream/Lotion/Oil/Oint 1 applic 08/01/18 11:56 Artificial Tears Ophth Oint OU Q4HR PRN Dry Eye(s) Pantoprazole Sodium 40 mg 08/02/18 10:00 08/05/18 09:18 Protonix IV 40 mg QDAY TRINY Administration
[2018-08-05] MEDS ORDERED: INTRALIPID 20% 250 ML IV SCH (20:00)
[2018-08-05] MEDS ORDERED: TPN ADULT 1,999.92 ML IV SCH (20:00)
[2018-08-06 05:23] LABS: Hematocrit 26.9 % (30.3-42.9); Hemoglobin 8.7 gm/dl (10.1-14.3); Mean Corpuscular HGB Conc 32 % (30-34); Mean Corpuscular Volume 87 fl (79-97); Platelet Count 183 K/mm3 (140-440); Red Blood Count 3.09 M/mm3 (3.65-5.03); Red Cell Distribution Width 19.7 % (13.2-15.2)
[2018-08-06] MEDS: HumaLOG SUB-Q SCH ×5 (05:32→22:37)
[2018-08-06] MEDS: MORPHINE IV PRN ×3 (05:33→23:53)
[2018-08-06 05:53] LABS: Calcium 8.3 mg/dL (8.4-10.2)
[2018-08-06 05:54] LABS: Basophils % (Manual) 0 % (0.0-1.8); Myelocytes # (Manual) 0.1 K/mm3; Total Cells Counted 100
[2018-08-06 05:55] LABS: Anisocytosis 1+; Ovalocytes 2+; Poikilocytosis 1+; Tear Drop Cells Rare
[2018-08-06] MEDS: ZOSYN/NS 2.25 GM/50ML 2.25 GM/50 ML BAG IV SCH ×3 (05:59→22:14)
--- NOTE | 2018-08-06 07:24 | Hem/Onc Progress Note ---
Assessment and Plan 1. T4a N0 Mx adenocarcinoma.bowel perforation, hence labeled as stage 4. 2. A 12 lymph nodes were negative. 3. History of diabetes. 4. History of hypertension. 5. History of fall. 6. History of metabolic encephalopathy. 7. 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 8. History of respiratory failure. 9. History of renal impairment. 10. As per the nursing staff, the patient is DNR. The patient received blood transfusion for anemia. 11. The patient is elderly. 12. As per the information, the patient had bowel perforation, hence labeled as stage 4. 13. The patient was intubated at one time during this admission. 14. I will follow the patient. d/w dr meza d/w family pt was using a walker before coming if pts performance improves - willl look into immune based or targetted therapy abdo drain+ - Patient Problems (1) Colon cancer Current Visit: Yes Status: Acute Subjective Date of service: 08/06/18 Principal diagnosis: colon ca Interval history: drain + Objective - Exam Narrative Exam: weak - Constitutional Vitals: Last Vital Signs Temp 98.3 F 08/06/18 04:00 Pulse 81 08/06/18 06:00 Resp 16 08/06/18 06:00 BP 140/88 08/06/18 06:00 Pulse Ox 98 08/06/18 06:00 General appearance: no acute distress Performance status: 3-limited selfcare - EENT Lymph node exam: negative cervical, negative supraclavicular - Respiratory Respiratory effort: Positive: normal Respiratory: bilateral: CTA - Cardiovascular Heart Sounds: Present: S1 & S2 Extremities: No edema - Gastrointestinal General gastrointestinal: Present: soft, other (s/p sx - drain+) Rectal Exam: deferred - Genitourinary Female genitourinary: Present: deferred - Integumentary Integumentary: warm - Musculoskeletal Musculoskeletal: generalized weakness - Labs Lab Results: Laboratory Results - last 24 hr 08/05/18 08/05/18 08/05/18 05:23 08:21 11:11 WBC RBC Hgb Hct MCV MCH MCHC RDW Plt Count [place] % (Auto) Add Manual Diff Complete Total Counted 100 Seg Neuts % (Manual) 78.0 H Band Neutrophils % 0 Lymphocytes % (Manual) 11.0 L Reactive Lymphs % (Man) 0 Monocytes % (Manual) 10.0 H Eosinophils % (Manual) 0 Basophils % (Manual) 1.0 Metamyelocytes % 0 Myelocytes % 0 Promyelocytes % 0 Blast Cells % 0 Nucleated RBC % Not Reportable Seg Neutrophils # Man 6.8 Band Neutrophils # 0.0 Lymphocytes # (Manual) 1.0 L Abs React Lymphs (Man) 0.0 Monocytes # (Manual) 0.9 H Eosinophils # (Manual) 0.0 Basophils # (Manual) 0.1 Metamyelocytes # 0.0 Myelocytes # 0.0 Promyelocytes # 0.0 Blast Cells # 0.0 WBC Morphology Not Reportable Hypersegmented Neuts Not Reportable Hyposegmented Neuts Not Reportable Hypogranular Neuts Not Reportable Smudge Cells Not Reportable Toxic Granulation Not Reportable Toxic Vacuolation Not Reportable Dohle Bodies Not Reportable Pelger-Huet Anomaly Not Reportable Richard Rods Not Reportable Platelet Estimate Consistent w auto Clumped Platelets Not Reportable Plt Clumps, EDTA Not Reportable Large Platelets Not Reportable Giant Platelets Not Reportable Platelet Satelliting Not Reportable Plt Morphology Comment Not Reportable RBC Morphology Not Reportable Dimorphic RBCs Not Reportable Polychromasia Not Reportable Hypochromasia Few Poikilocytosis 1+ Anisocytosis 1+ Microcytosis Not Reportable Macrocytosis Not Reportable Spherocytes Not Reportable Pappenheimer Bodies Not Reportable Sickle Cells Not Reportable Target Cells Not Reportable Tear Drop Cells Not Reportable Ovalocytes Few Helmet Cells Not Reportable Varela-[place] Bodies Not Reportable [place] Rings Not Reportable Betzy Cells Not Reportable Bite Cells Not Reportable Crenated Cell Not Reportable Elliptocytes Few Acanthocytes (Spur) Not Reportable Rouleaux Not Reportable Hemoglobin C Crystals Not Reportable Schistocytes Not Reportable Malaria parasites Not Reportable Michi Bodies Not Reportable Hem Pathologist Commnt No Sodium Potassium Chloride Carbon Dioxide Anion Gap BUN Creatinine Estimated GFR BUN/Creatinine Ratio Glucose POC Glucose 178 H 200 H Calcium Phosphorus Magnesium 08/05/18 08/05/18 08/05/18 15:53 20:15 22:32 WBC RBC Hgb Hct MCV MCH MCHC RDW Plt Count [place] % (Auto) Add Manual Diff Total Counted Seg Neuts % (Manual) Band Neutrophils % Lymphocytes % (Manual) Reactive Lymphs % (Man) Monocytes % (Manual) Eosinophils % (Manual) Basophils % (Manual) Metamyelocytes % Myelocytes % Promyelocytes % Blast Cells % Nucleated RBC % Seg Neutrophils # Man Band Neutrophils # Lymphocytes # (Manual) Abs React Lymphs (Man) Monocytes # (Manual) Eosinophils # (Manual) Basophils # (Manual) Metamyelocytes # Myelocytes # Promyelocytes # Blast Cells # WBC Morphology Hypersegmented Neuts Hyposegmented Neuts Hypogranular Neuts Smudge Cells Toxic Granulation Toxic Vacuolation Dohle Bodies Pelger-Huet Anomaly Richard Rods Platelet Estimate Clumped Platelets Plt Clumps, EDTA Large Platelets Giant Platelets Platelet Satelliting Plt Morphology Comment RBC Morphology Dimorphic RBCs Polychromasia Hypochromasia Poikilocytosis Anisocytosis Microcytosis Macrocytosis Spherocytes Pappenheimer Bodies Sickle Cells Target Cells Tear Drop Cells Ovalocytes Helmet Cells Varela-[place] Bodies [place] Rings [place] Cells Bite Cells Crenated Cell Elliptocytes Acanthocytes (Spur) Rouleaux Hemoglobin C Crystals Schistocytes Malaria parasites Michi Bodies Hem Pathologist Commnt Sodium Potassium Chloride Carbon Dioxide Anion Gap BUN Creatinine Estimated GFR BUN/Creatinine Ratio Glucose POC Glucose 157 H 194 H 209 H Calcium Phosphorus Magnesium 08/06/18 08/06/18 08/06/18 04:37 04:41 04:41 WBC 7.3 RBC 3.09 L Hgb 8.7 L Hct 26.9 L MCV 87 MCH 28 MCHC 32 RDW 19.7 H Plt Count 183 [place] % (Auto) [employer] Manager Add Manual Diff Complete Total Counted 100 Seg Neuts % (Manual) 81.0 H Band Neutrophils % 0 Lymphocytes % (Manual) 12.0 L Reactive Lymphs % (Man) 0 Monocytes % (Manual) 4.0 Eosinophils % (Manual) 1.0 Basophils % (Manual) 0 Metamyelocytes % 1.0 Myelocytes % 1.0 Promyelocytes % 0 Blast Cells % 0 Nucleated RBC % Not Reportable Seg Neutrophils # Man 5.9 Band Neutrophils # 0.0 Lymphocytes # (Manual) 0.9 L Abs React Lymphs (Man) 0.0 Monocytes # (Manual) 0.3 Eosinophils # (Manual) 0.1 Basophils # (Manual) 0.0 Metamyelocytes # 0.1 Myelocytes # 0.1 Promyelocytes # 0.0 Blast Cells # 0.0 WBC Morphology Not Reportable Hypersegmented Neuts Not Reportable Hyposegmented Neuts Not Reportable Hypogranular Neuts Not Reportable Smudge Cells Not Reportable Toxic Granulation Not Reportable Toxic Vacuolation Not Reportable Dohle Bodies Not Reportable Pelger-Huet Anomaly Not Reportable Richard Rods Not Reportable Platelet Estimate Appears normal Clumped Platelets Not Reportable Plt Clumps, EDTA Not Reportable Large Platelets Not Reportable Giant Platelets Not Reportable Platelet Satelliting Not Reportable Plt Morphology Comment Not Reportable RBC Morphology Not Reportable Dimorphic RBCs Not Reportable Polychromasia Few Hypochromasia Not Reportable Poikilocytosis 1+ Anisocytosis 1+ Microcytosis Not Reportable Macrocytosis Not Reportable Spherocytes Not Reportable Pappenheimer Bodies Not Reportable Sickle Cells Not Reportable Target Cells Not Reportable Tear Drop Cells Rare Ovalocytes 2+ Helmet Cells Not Reportable Varela-[place] Bodies Not Reportable [place] Rings Not Reportable Betzy Cells Not Reportable Bite Cells Not Reportable Crenated Cell Not Reportable Elliptocytes Few Acanthocytes (Spur) Not Reportable Rouleaux Not Reportable Hemoglobin C Crystals Not Reportable Schistocytes Not Reportable Malaria parasites Not Reportable Michi Bodies Not Reportable Hem Pathologist Commnt No Sodium 150 H Potassium 4.0 Chloride 114.5 H Carbon Dioxide 24 Anion Gap 16 BUN 89 H Creatinine 1.9 H Estimated GFR 30 BUN/Creatinine Ratio 47 Glucose 196 H POC Glucose 207 H Calcium 8.3 L Phosphorus 2.80 D Magnesium 2.10 Medications & Allergies - Medications Allergies/Adverse Reactions: Allergies No Known Allergies Allergy (Unverified 07/18/18 20:42) Home Medications: Home Medications Medication Instructions Recorded Confirmed Last Taken Type Furosemide [Lasix] 20 mg PO DAILY 07/19/18 07/19/18 07/18/18 History Insulin Aspart [Novolog Flexpen] 100 unit SQ TID 07/19/18 07/19/18 07/18/18 History Losartan Potassium [Cozaar] 50 mg PO DAILY 07/19/18 07/19/18 07/18/18 History Metoprolol Xl [Metoprolol 25 mg PO QDAY 07/19/18 07/19/18 07/18/18 History SUCCINATE ER TAB] Naproxen 500 mg PO BID 07/19/18 07/19/18 07/18/18 History Ranitidine HCl [Acid Control] 150 mg PO BID 07/19/18 07/19/18 07/18/18 History Active Medications: Generic Name Dose Route Start Last Admin Trade Name Freq PRN Reason Stop Dose Admin Albuterol 2.5 mg 07/24/18 20:13 07/24/18 20:31 Proventil IH 2.5 mg Q4HRT PRN Administration Shortness Of Breath Albuterol/Ipratropium 1 ampul 07/25/18 14:00 08/05/18 19:47 Duoneb *Not For Prn Use* IH 1 ampul TIDRT TRINY Administration Clonidine HCl 0.3 mg 07/25/18 10:00 08/01/18 18:08 Catapres-Tts Patch TD 0.3 mg Mo TRINY Administration Dextrose 50 ml 07/19/18 02:51 D50w (25gm) Syringe IV PRN PRN Hypoglycemia Hydralazine HCl 20 mg 07/27/18 16:53 07/31/18 21:54 Apresoline IV 20 mg Q4HR PRN Administration Hypertension Piperacillin Sod/Tazobactam Sod 2.25 gm in 50 mls @ 100 mls/hr 08/03/18 14:00 08/06/18 05:59 Zosyn/Ns 2.25 Gm/50ml IV 100 mls/hr Q8HR TRINY Administration Protocol Fat Emulsion Intravenous 250 mls @ 21 mls/hr 08/05/18 20:00 08/05/18 21:22 Intralipid 20% IV 08/06/18 08:00 21 mls/hr DAILY@[email or web address] TRINY Administration Amino Acids/Electrolytes/Dextrose 1,999.92 mls @ 83.33 mls/hr 08/05/18 20:00 08/05/18 21:23 Tpn Adult IV 08/06/18 19:59 83.33 mls/hr DAILY@[email or web address] TRINY Administration Protocol Insulin Glargine 20 units 08/02/18 11:00 08/05/18 09:18 Lantus SUB-Q 20 units DAILY TRINY Administration Insulin Human Lispro 0 unit 07/19/18 03:00 08/06/18 05:32 Humalog SUB-Q 4 unit Q4H TRINY Administration Protocol Labetalol HCl 10 mg 07/26/18 12:37 08/01/18 16:12 Normodyne IV 10 mg Q4H PRN Administration Blood Pressure Morphine Sulfate 2 mg 08/03/18 00:21 08/06/18 05:33 Morphine IV 2 mg Q3H PRN Administration Pain, Moderate (4-6) Multi-Ingred Cream/Lotion/Oil/Oint 1 applic 08/01/18 11:56 Artificial Tears Ophth Oint OU Q4HR PRN Dry Eye(s) Pantoprazole Sodium 40 mg 08/02/18 10:00 08/05/18 09:18 Protonix IV 40 mg QDAY TRINY Administration
[2018-08-06] MEDS: DUONEB *Not for PRN Use IH SCH ×5 (09:28→20:22)
--- NOTE | 2018-08-06 09:48 | Progress Note ---
Assessment and Plan POD #5 Pt status quo. + flatus Abd soft. Chest - bibasilar rales surgically stable onc eval noted d/c ng keep npo except meds x 24 hrs CxR today Selected Entries 08/05/18 08/05/18 08/06/18 10:00 11:37 08:00 Temperature 98.3 F 98.5 F Pulse Rate 72 Pulse Rate [ Anterior Bilateral Throughout] Blood Pressure 122/53 08/06/18 08/06/18 09:00 09:30 Temperature Pulse Rate 76 Pulse Rate [ 82 Anterior Bilateral Throughout] Blood Pressure 129/60 Laboratory Tests 08/04/18 08/04/18 08/05/18 04:15 04:15 05:23 WBC Hgb 8.5 L Hct 25.7 L Sodium Potassium Chloride Carbon Dioxide BUN 89 H 94 H Creatinine 2.3 H 2.1 H 08/05/18 08/06/18 08/06/18 05:23 04:41 04:41 WBC 8.7 7.3 Hgb 8.5 L 8.7 L Hct 26.0 L 26.9 L Sodium 150 H Potassium 4.0 Chloride 114.5 H Carbon Dioxide 24 BUN 89 H Creatinine 1.9 H Objective Vital Signs - 12hr 08/05/18 08/05/18 08/05/18 22:00 23:00 23:03 Temperature Pulse Rate 86 92 H 89 Pulse Rate [ Anterior Bilateral Throughout] Pulse Rate [ From Monitor] Respiratory 13 14 13 Rate Respiratory Rate [Anterior Bilateral Throughout] Blood Pressure 129/54 144/74 144/74 O2 Sat by Pulse 95 96 97 Oximetry 08/06/18 08/06/18 08/06/18 00:00 01:00 02:00 Temperature 99.5 F Pulse Rate 82 74 73 Pulse Rate [ Anterior Bilateral Throughout] Pulse Rate [ 82 From Monitor] Respiratory 15 14 15 Rate Respiratory Rate [Anterior Bilateral Throughout] Blood Pressure 130/50 144/74 134/47 O2 Sat by Pulse 97 99 98 Oximetry 08/06/18 08/06/18 08/06/18 03:00 04:00 05:00 Temperature 98.3 F Pulse Rate 79 87 89 Pulse Rate [ Anterior Bilateral Throughout] Pulse Rate [ 79 From Monitor] Respiratory 15 18 22 Rate Respiratory Rate [Anterior Bilateral Throughout] Blood Pressure 122/50 122/50 140/88 O2 Sat by Pulse 97 100 97 Oximetry 08/06/18 08/06/18 08/06/18 06:00 07:00 08:00 Temperature 98.5 F Pulse Rate 81 74 78 Pulse Rate [ Anterior Bilateral Throughout] Pulse Rate [ 75 From Monitor] Respiratory 16 13 15 Rate Respiratory Rate [Anterior Bilateral Throughout] Blood Pressure 140/88 170/72 129/60 O2 Sat by Pulse 98 97 95 Oximetry 08/06/18 08/06/18 09:00 09:30 Temperature Pulse Rate 76 Pulse Rate [ 82 Anterior Bilateral Throughout] Pulse Rate [ From Monitor] Respiratory 14 Rate Respiratory 22 Rate [Anterior Bilateral Throughout] Blood Pressure 129/60 O2 Sat by Pulse 95 100 Oximetry - Labs 08/06/18 04:41 08/06/18 04:41 Diabetes panel 08/06/18 Range/Units 04:41 Sodium 150 H (137-145) mmol/L Potassium 4.0 (3.6-5.0) mmol/L Chloride 114.5 H (98-107) mmol/L Carbon Dioxide 24 (22-30) mmol/L BUN 89 H (7-17) mg/dL Creatinine 1.9 H (0.7-1.2) mg/dL Glucose 196 H (65-100) mg/dL Calcium 8.3 L (8.4-10.2) mg/dL Calcium panel 08/06/18 Range/Units 04:41 Calcium 8.3 L (8.4-10.2) mg/dL Phosphorus 2.80 D (2.5-4.5) mg/dL Pituitary panel 08/06/18 Range/Units 04:41 Sodium 150 H (137-145) mmol/L Potassium 4.0 (3.6-5.0) mmol/L Chloride 114.5 H (98-107) mmol/L Carbon Dioxide 24 (22-30) mmol/L BUN 89 H (7-17) mg/dL Creatinine 1.9 H (0.7-1.2) mg/dL Glucose 196 H (65-100) mg/dL Calcium 8.3 L (8.4-10.2) mg/dL Adrenal panel 08/06/18 Range/Units 04:41 Sodium 150 H (137-145) mmol/L Potassium 4.0 (3.6-5.0) mmol/L Chloride 114.5 H (98-107) mmol/L Carbon Dioxide 24 (22-30) mmol/L BUN 89 H (7-17) mg/dL Creatinine 1.9 H (0.7-1.2) mg/dL Glucose 196 H (65-100) mg/dL Calcium 8.3 L (8.4-10.2) mg/dL
[2018-08-06] MEDS: PROTONIX IV SCH (10:13)
[2018-08-06] MEDS: LANTUS SUB-Q SCH (10:14)
--- NOTE | 2018-08-06 11:10 | XRay Report ---
FINAL REPORT EXAM: XR CHEST 1V AP HISTORY: r/o fluid overload COMPARISON: Chest radiograph performed on 08/01/2018 TECHNIQUE: Single frontal view of the chest FINDINGS: Right upper extremity PICC line with tip of the catheter in the superior vena cava. The cardiomediastinal silhouette is normal in appearance. Low lung volumes with streaky opacities at the bilateral lung bases. Mild blunting of the bilateral c ostophrenic angles. No acute bony or soft tissue abnormality. IMPRESSION: Low lung volumes with streaky opacities at the bilateral lung bases that may reflect atelectasis. Blunting of the bilateral costophrenic angles that may represent trace bilateral pleural effusions.
--- NOTE | 2018-08-06 14:13 | Progress Note ---
Assessment and Plan Assessment and plan: Patient is 87 yo woman with a history of DM, CHF and hypertension who presents to [facility] ED via EMS with AMS, falling at home, feeling hot, blood glucose was in the 40s and she was given oral glucose by EMS prior to arrival. Associated with falling is diaphoresis, lose of appetite, n/v, sob x 1 day. This is patient 3rd fall at home. She did complain of right upper quadrant, sharp intermittent severe, aggravated by certain movement, relieved by different positions. She was found to have bowel perforation. * CTAP with IV contrast IMPRESSION: Extensive inflammatory changes involving the cecum and proximal ascending colon extending posteriorly with pericolonic stranding. Diagnostic consideration would include appendicitis with perforation presuming the patient still has her appendix. The other possibility is severe diverticulitis with probable perforation. Extensive colonic diverticulosis. Uncomplicated cysts in both kidneys. Hysterectomy. Multilevel disc degeneration in the lumbar spine. Incidental note is made of a crescent-shaped area of mural thrombus at the thoracoabdominal junction involving the aorta. A remote dissection cannot entirely be excluded. * CTA chest pains IMPRESSION: 1. No evidence of pulmonary embolism. 2. Mild cardiomegaly 3. Lingular subsegmental atelectasis versus parenchymal scar 4. 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 No evidence of acute infarct or intracranial hemorrhage. 2. White matter lucency consistent with chronic microvascular ischemic disease. * pCXR IMPRESSION: Subpleural effusion and cardiomegaly * 07/25/[address] abd/pelvis without contrast FINDINGS: Small layering pleural effusions have developed measuring up to 1 cm in thickness. Heart size is stable at the upper limits of normal. The visualized lung bases are adequately aerated. The masslike lesion in the ascending colon appears stable in size and contour. There is no evidence for obstruction or leakage of contrast. There are scattered diverticula in the proximal colon. Mild inflammatory changes adjacent to this masslike lesion have decreased by 20% since the previous exam. It is unclear if this represents a colon mass or is associated with diverticulitis. I favor a colon mass. The liver, biliary system, pancreas, spleen, kidneys and adrenal glands remain unremarkable. The pelvic viscera are within normal limits. Hysterectomy changes are noted. IMPRESSION: Inflammatory changes adjacent to the right colon mass or diverticulitis has improved slightly. Overall, no overwhelming change. No new acute process. New small layering pleural effusions. * 08/01/[address] Wooten Procedure: Exploratory laparotomy, lysis of extensive adhesion, right hemicolectomy with ileocolic anastomosis "Findings: A very large mass extending outside of the colon into the retroperitoneum in the area of the hepatic flexure. Also, extensive adhesions involving the entire omentum as well as pelvis including small bowel deep in the pelvis. Technically difficult and challenging case....Final Impression: Stage IV cancer with extension into the surrounding fat and retroperitoneum. 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, s/p surgery 08/01/18, still intubated, s/p extubated 08/02/18 and transferred to [facility]: continue 02 support Hypertensive urgency, Bp controlled on the following: catapress patch, iv enalapril (will have to stop because worsening renal function), iv hydralazine and iv labetalol, ARF, ATN suspected: Nephrology following Recurrent falls with episodes of hypoglycemia: hold DM medication(s), treated with dextrose, following accuchecks Sepsis with suspected perforated bowel from colon cancer s/p surgery Acute metabolic encephalopathy: treat the hypoglycemia and sepsis 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 Jeter. Hold off on hospice, chance of chemotherapy if she gets better from current illness, which I think is a long shot because her performance wasn't that good prior to admission (she walked with a walker). Her renal failure/Cr has plateau. Still on TPN. Now, getting too much fluid, with fluid overload and hypernatremia, all needs to be adjusted in TPN. I d/w Pharmacist, Irasema, regarding TPN adjustment. pcXR showing bilateral effusion. Renal function is improving, really don't want to give lasix because renal function improving. TPN was started on 07/23/[address] Braden, General Surgeon, which Gen. Surgeon is managing but I am watching electrolytes closely. CCT 36 minutes History Interval history: Patient was seen and examined. Follow-up on current diagnosis of bowel perforation. Overnight uneventful. Patient denies any chest pain, shortness breath, nausea/vomiting or severe headaches. Imaging, nursing note, chart, labs and old chart reviewed. Discussed with patient. Hospitalist Physical - Physical exam Narrative exam: Gen: WDWN, NAD, Awake, Alert, Orientated x 1 HEENT: NCAT, EOMI, PERRL, OP Clear Neck: supple, no adenopathy, no thyromegaly, no JVD CVS/Heart: RRR, normal S1S2, pulses present bilaterally Chest/Lungs: diminished bs bilateral, Symmetrical chest expansion, good air entry bilaterally GI/Abdomen: soft diffusely tender, good bowel sounds, no guarding or rebound /Bladder: no suprapubic tenderness, no CVA or paraspinal tenderness Extermity/Skin: no c/c/e, no obvious rash MSK: FROM x 4 Neuro: CN 2-12 grossly intact, no new focal deficits Psych: calm - Constitutional Vitals: Temp Pulse Resp BP Pulse Ox 98.5 F 81 18 159/72 100 08/06/18 08:00 08/06/18 12:46 08/06/18 12:46 08/06/18 11:00 08/06/18 11:00 General appearance: Present: no acute distress, well-nourished Results - Labs CBC & Chem 7: 08/06/18 04:41 08/06/18 04:41 Labs: Laboratory Last Values WBC 7.3 K/mm3 (4.5-11.0) 08/06/18 04:41 RBC 3.09 M/mm3 (3.65-5.03) L 08/06/18 04:41 Hgb 8.7 gm/dl (10.1-14.3) L 08/06/18 04:41 Hct 26.9 % (30.3-42.9) L 08/06/18 04:41 MCV 87 fl (79-97) 08/06/18 04:41 MCH 28 pg (28-32) 08/06/18 04:41 MCHC 32 % (30-34) 08/06/18 04:41 RDW 19.7 % (13.2-15.2) H 08/06/18 04:41 Plt Count 183 K/mm3 (140-440) 08/06/18 04:41 Lymph % (Auto) 7.7 % (13.4-35.0) L 08/04/18 04:15 Mccormick % (Auto) Through Freight Engineer 08/06/18 04:41 Eos % (Auto) 1.0 % (0.0-4.3) 08/04/18 04:15 Baso % (Auto) 0.4 % (0.0-1.8) 08/04/18 04:15 Lymph # 0.9 K/mm3 (1.2-5.4) L 08/04/18 04:15 Mccormick # 1.1 K/mm3 (0.0-0.8) H 08/04/18 04:15 Eos # 0.1 K/mm3 (0.0-0.4) 08/04/18 04:15 Baso # 0.0 K/mm3 (0.0-0.1) 08/04/18 04:15 Add Manual Diff Complete 08/06/18 04:41 Total Counted 100 08/06/18 04:41 Seg Neutrophils % 80.6 % (40.0-70.0) H 08/04/18 04:15 Seg Neuts % (Manual) 81.0 % (40.0-70.0) H 08/06/18 04:41 Band Neutrophils % 0 % 08/06/18 04:41 Lymphocytes % (Manual) 12.0 % (13.4-35.0) L 08/06/18 04:41 Reactive Lymphs % (Man) 0 % 08/06/18 04:41 Monocytes % (Manual) 4.0 % (0.0-7.3) 08/06/18 04:41 Eosinophils % (Manual) 1.0 % (0.0-4.3) 08/06/18 04:41 Basophils % (Manual) 0 % (0.0-1.8) 08/06/18 04:41 Metamyelocytes % 1.0 % 08/06/18 04:41 Myelocytes % 1.0 % 08/06/18 04:41 Promyelocytes % 0 % 08/06/18 04:41 Blast Cells % 0 % 08/06/18 04:41 Nucleated RBC % Not Reportable 08/06/18 04:41 Seg Neutrophils # 8.9 K/mm3 (1.8-7.7) H 08/04/18 04:15 Seg Neutrophils # Man 5.9 K/mm3 (1.8-7.7) 08/06/18 04:41 Band Neutrophils # 0.0 K/mm3 08/06/18 04:41 Lymphocytes # (Manual) 0.9 K/mm3 (1.2-5.4) L 08/06/18 04:41 Abs React Lymphs (Man) 0.0 K/mm3 08/06/18 04:41 Monocytes # (Manual) 0.3 K/mm3 (0.0-0.8) 08/06/18 04:41 Eosinophils # (Manual) 0.1 K/mm3 (0.0-0.4) 08/06/18 04:41 Basophils # (Manual) 0.0 K/mm3 (0.0-0.1) 08/06/18 04:41 Metamyelocytes # 0.1 K/mm3 08/06/18 04:41 Myelocytes # 0.1 K/mm3 08/06/18 04:41 Promyelocytes # 0.0 K/mm3 08/06/18 04:41 Blast Cells # 0.0 K/mm3 08/06/18 04:41 WBC Morphology Not Reportable 08/06/18 04:41 Hypersegmented Neuts Not Reportable 08/06/18 04:41 Hyposegmented Neuts Not Reportable 08/06/18 04:41 Hypogranular Neuts Not Reportable 08/06/18 04:41 Smudge Cells Not Reportable 08/06/18 04:41 Toxic Granulation Not Reportable 08/06/18 04:41 Toxic Vacuolation Not Reportable 08/06/18 04:41 Dohle Bodies Not Reportable 08/06/18 04:41 Pelger-Huet Anomaly Not Reportable 08/06/18 04:41 Richard Rods Not Reportable 08/06/18 04:41 Platelet Estimate Appears normal 08/06/18 04:41 Clumped Platelets Not Reportable 08/06/18 04:41 Plt Clumps, EDTA Not Reportable 08/06/18 04:41 Large Platelets Not Reportable 08/06/18 04:41 Giant Platelets Not Reportable 08/06/18 04:41 Platelet Satelliting Not Reportable 08/06/18 04:41 Plt Morphology Comment Not Reportable 08/06/18 04:41 RBC Morphology Not Reportable 08/06/18 04:41 Dimorphic RBCs Not Reportable 08/06/18 04:41 Polychromasia Few 08/06/18 04:41 Hypochromasia Not Reportable 08/06/18 04:41 Poikilocytosis 1+ 08/06/18 04:41 Anisocytosis 1+ 08/06/18 04:41 Microcytosis Not Reportable 08/06/18 04:41 Macrocytosis Not Reportable 08/06/18 04:41 Spherocytes Not Reportable 08/06/18 04:41 Pappenheimer Bodies Not Reportable 08/06/18 04:41 Sickle Cells Not Reportable 08/06/18 04:41 Target Cells Not Reportable 08/06/18 04:41 Tear Drop Cells Rare 08/06/18 04:41 Ovalocytes 2+ 08/06/18 04:41 Helmet Cells Not Reportable 08/06/18 04:41 Varela-Silverton Bodies Not Reportable 08/06/18 04:41 Sparks Rings Not Reportable 08/06/18 04:41 [place] Cells Not Reportable 08/06/18 04:41 Bite Cells Not Reportable 08/06/18 04:41 Crenated Cell Not Reportable 08/06/18 04:41 Elliptocytes Few 08/06/18 04:41 Acanthocytes (Spur) Not Reportable 08/06/18 04:41 Rouleaux Not Reportable 08/06/18 04:41 Hemoglobin C Crystals Not Reportable 08/06/18 04:41 Schistocytes Not Reportable 08/06/18 04:41 Malaria parasites Not Reportable 08/06/18 04:41 Michi Bodies Not Reportable 08/06/18 04:41 Hem Pathologist Commnt No 08/06/18 04:41 PT 14.5 Sec. (12.2-14.9) 07/28/18 05:27 INR 1.09 (0.87-1.13) 07/28/18 05:27 APTT 23.2 Sec. (24.2-36.6) L 07/18/18 20:48 POC ABG pH 7.409 (7.35-7.45) 08/02/18 09:56 POC ABG pCO2 38.5 (35-45) 08/02/18 09:56 POC ABG pO2 70 (80-105) L 08/02/18 09:56 POC ABG HCO3 24.3 08/02/18 09:56 POC ABG Total CO2 25 08/02/18 09:56 POC ABG O2 Sat 94 08/02/18 09:56 POC ABG Base Excess 0 08/02/18 09:56 FiO2 40 % 08/02/18 09:56 Sodium 150 mmol/L (137-145) H 08/06/18 04:41 Potassium 4.0 mmol/L (3.6-5.0) 08/06/18 04:41 Chloride 114.5 mmol/L (98-107) H 08/06/18 04:41 Carbon Dioxide 24 mmol/L (22-30) 08/06/18 04:41 Anion Gap 16 mmol/L 08/06/18 04:41 BUN 89 mg/dL (7-17) H 08/06/18 04:41 Creatinine 1.9 mg/dL (0.7-1.2) H 08/06/18 04:41 Estimated GFR 30 ml/min 08/06/18 04:41 BUN/Creatinine Ratio 47 % 08/06/18 04:41 Glucose 196 mg/dL (65-100) H 08/06/18 04:41 POC Glucose 178 (70-105) H 08/06/18 07:42 Lactic Acid 1.10 mmol/L (0.7-2.0) 07/19/18 17:04 Calcium 8.3 mg/dL (8.4-10.2) L 08/06/18 04:41 Phosphorus 2.80 mg/dL (2.5-4.5) D 08/06/18 04:41 Magnesium 2.10 mg/dL (1.7-2.3) 08/06/18 04:41 Total Bilirubin 0.30 mg/dL (0.1-1.2) 08/03/18 04:42 AST 24 units/L (5-40) 08/03/18 04:42 ALT 10 units/L (7-56) 08/03/18 04:42 Alkaline Phosphatase 55 units/L (35-129) 08/03/18 04:42 Total Creatine Kinase 48 units/L (30-135) 07/18/18 20:48 CK-MB (CK-2) < 1.0 ng/mL (0.0-4.0) 07/18/18 20:48 CK-MB (CK-2) Rel Index 2.0 (0-4) 07/18/18 20:48 Troponin T 0.025 ng/mL (0.00-0.029) 07/18/18 20:48 C-Reactive Protein 4.30 mg/dL (0.00-1.30) H 07/25/18 03:58 NT-Pro-B Natriuret Pep 462.4 pg/mL (0-900) 07/18/18 20:48 Total Protein 5.5 g/dL (6.3-8.2) L 08/03/18 04:42 Albumin 2.5 g/dL (3.9-5) L 08/03/18 04:42 Albumin/Globulin Ratio 0.8 % 08/03/18 04:42 Carcinoembryonic Ag See scanned result 07/22/18 13:47 Urine Color Yellow (Yellow) 07/18/18 21:49 Urine Turbidity Clear (Clear) 07/18/18 21:49 Urine pH 5.0 (5.0-7.0) 07/18/18 21:49 Ur Specific [place] 1.019 (1.003-1.030) 07/18/18 21:49 Urine Protein <15 mg/dl mg/dL (Negative) 07/18/18 21:49 Urine Glucose (UA) Neg mg/dL (Negative) 07/18/18 21:49 Urine Ketones Neg mg/dL (Negative) 07/18/18 21:49 Urine Blood Neg (Negative) 07/18/18 21:49 Urine Nitrite Neg (Negative) 07/18/18 21:49 Urine Bilirubin Neg (Negative) 07/18/18 21:49 Urine Urobilinogen 4.0 mg/dL (<2.0) 07/18/18 21:49 Ur Leukocyte Esterase Neg (Negative) 07/18/18 21:49 Urine WBC (Auto) 2.0 /HPF (0.0-6.0) 07/18/18 21:49 Urine RBC (Auto) < 1.0 /HPF (0.0-6.0) 07/18/18 21:49 U Epithel Cells (Auto) 3.0 /HPF (0-13.0) 07/18/18 21:49 Urine Mucus Few /HPF 07/18/18 21:49 Blood Type B POSITIVE 08/04/18 16:04 Antibody Screen Negative 08/04/18 16:04 Crossmatch See Detail 08/01/18 07:18 Nutrition/Malnutrition Assess - Dietary Evaluation Nutrition/Malnutrition Findings: Nutrition Notes Start: 07/22/18 14:00 Freq: Status: Active Protocol: Document 08/05/18 08:27 TW (Rec: 08/05/18 08:31 TW [id number]) Co-Sign 08/05/18 08:27 LP Nutrition Notes Initial or Follow up Reassessment Current Diagnosis Diabetes Sepsis Hypertension Heart Failure Other Pertinent Diagnosis Stage IV CA s/p exp lap with ( R) colectomy Current Diet CPN at 83.33mL/hr Labs/Tests Phos: 4.4 M.4 BUN: 94 Cr: 2.1 Pertinent Medications Lantus Humalog Height 5 ft 5 in Weight 110.9 kg Wayne Body Weight (lbs) 125.0 BMI 40.6 Subjective/Other Information CPN day 14. CPN infusing at goal rate. Percent of energy/protein needs met: 110%/112% Burn Absent Trauma Absent #1 Nutrition Diagnosis Altered GI function Diagnosis Progress(for reassessment Continues documentation) Is patient on ventilator? No Is Patient Ambulatory and/or Out of Bed No REE-([facility]-confined to bed) 1866.780 Kcal/Kg value to use for calculation 13 Approximate Energy Requirements Using 1442 kcal/Kg Additional Notes PRO needs 1-1.2g/kg adjBW: 84- 101g/day (AdjBW 84kg) Fluid needs 1ml/kcal Nutrition Intervention Change Diet Order: CPN Nutrition Support: CPN at 83.33 mL/hr. Osmolarity 1028, Na: 100 mEq, Chloride Acetate: 0:100, MVI, Lipids Kcal 1,577 Protein (gm) 80 Carbohydrates (gm) 225 Fat (gm) 50 Fluid (mL) 2,250 Fiber (gm) 0 Goal #1 PN to meet 65-70% energy and at least 80% pro needs Anticipated Discharge Needs: Unable to identify at this time Follow-Up By: 08/06/18 Additional Comments Labs in am: BMP, Mg, Phos
--- NOTE | 2018-08-06 14:42 | Progress Note ---
Assessment and Plan Impression: * Acute kidney injury secondary multifactorial etioloiges: prerenal azotemia, sepsis related ATN, contrast induced nephropathy * Stage IV adenocarcinoma of colon * s/p right hemicolectomy, ileocolic anastamosis * Sepsis * Intraabdominal abscess w/?perforation vs necrotic tumor * Hypernatermia Plan: * SCr is stable * Sodium is increasing - adjust PPN, start D5W if unimproved * Abx per ID * Transfuse pRBC per primary team * Consultants' recommendations reviewed * Avoid nephrotoxins * Dose medications for renal function Subjective Date of service: 08/06/18 Principal diagnosis: colon ca Interval history: Patient to be transferred from [facility] to [place] today. Objective - Vital Signs Vital signs: Vital Signs - 12hr 08/06/18 08/06/18 08/06/18 03:00 04:00 05:00 Temperature 98.3 F Pulse Rate 79 87 89 Pulse Rate [ Anterior Bilateral Throughout] Pulse Rate [ 79 From Monitor] Respiratory 15 18 22 Rate Respiratory Rate [Anterior Bilateral Throughout] Blood Pressure 122/50 122/50 140/88 O2 Sat by Pulse 97 100 97 Oximetry 08/06/18 08/06/18 08/06/18 06:00 07:00 08:00 Temperature 98.5 F Pulse Rate 81 74 78 Pulse Rate [ Anterior Bilateral Throughout] Pulse Rate [ 75 From Monitor] Respiratory 16 13 15 Rate Respiratory Rate [Anterior Bilateral Throughout] Blood Pressure 140/88 170/72 129/60 O2 Sat by Pulse 98 97 95 Oximetry 08/06/18 08/06/18 08/06/18 09:00 09:30 09:40 Temperature Pulse Rate 76 Pulse Rate [ 82 85 Anterior Bilateral Throughout] Pulse Rate [ From Monitor] Respiratory 14 Rate Respiratory 22 20 Rate [Anterior Bilateral Throughout] Blood Pressure 129/60 O2 Sat by Pulse 95 100 Oximetry 08/06/18 08/06/18 08/06/18 10:00 11:00 12:00 Temperature 98.5 F Pulse Rate 88 77 78 Pulse Rate [ Anterior Bilateral Throughout] Pulse Rate [ From Monitor] Respiratory 14 15 14 Rate Respiratory Rate [Anterior Bilateral Throughout] Blood Pressure 160/58 159/72 138/60 O2 Sat by Pulse 97 100 95 Oximetry 08/06/18 08/06/18 08/06/18 12:36 12:46 13:00 Temperature Pulse Rate 77 Pulse Rate [ 77 81 Anterior Bilateral Throughout] Pulse Rate [ From Monitor] Respiratory 16 Rate Respiratory 18 18 Rate [Anterior Bilateral Throughout] Blood Pressure 140/62 O2 Sat by Pulse 96 Oximetry 08/06/18 14:00 Temperature Pulse Rate 85 Pulse Rate [ Anterior Bilateral Throughout] Pulse Rate [ From Monitor] Respiratory 17 Rate Respiratory Rate [Anterior Bilateral Throughout] Blood Pressure 138/60 O2 Sat by Pulse 99 Oximetry - General Appearance General appearance: well-developed, well-nourished EENT: ATNC Respiratory: Present: Decreased Breath Sounds Cardiology: regular, S1S2 Gastrointestinal: hypoactive bowel sounds, distended Integumentary: warm and dry Musculoskeletal: other (no edema) Psychiatric: cooperative - Lab 08/06/18 04:41 08/06/18 04:41 Most recent lab results Calcium 8.3 mg/dL (8.4-10.2) L 08/06/18 04:41 Phosphorus 2.80 mg/dL (2.5-4.5) D 08/06/18 04:41 Magnesium 2.10 mg/dL (1.7-2.3) 08/06/18 04:41 Medications & Allergies - Medications Allergies/Adverse Reactions: Allergies No Known Allergies Allergy (Unverified 07/18/18 20:42) Home Medications: Home Medications Medication Instructions Recorded Confirmed Last Taken Type Furosemide [Lasix] 20 mg PO DAILY 07/19/18 07/19/18 07/18/18 History Insulin Aspart [Novolog Flexpen] 100 unit SQ TID 07/19/18 07/19/18 07/18/18 History Losartan Potassium [Cozaar] 50 mg PO DAILY 07/19/18 07/19/18 07/18/18 History Metoprolol Xl [Metoprolol 25 mg PO QDAY 07/19/18 07/19/18 07/18/18 History SUCCINATE ER TAB] Naproxen 500 mg PO BID 07/19/18 07/19/18 07/18/18 History Ranitidine HCl [Acid Control] 150 mg PO BID 07/19/18 07/19/18 07/18/18 History Active Medications: Generic Name Dose Route Start Last Admin Trade Name Freq PRN Reason Stop Dose Admin Albuterol 2.5 mg 07/24/18 20:13 07/24/18 20:31 Proventil IH 2.5 mg Q4HRT PRN Administration Shortness Of Breath Albuterol/Ipratropium 1 ampul 07/25/18 14:00 08/06/18 12:36 Duoneb *Not For Prn Use* IH 1 ampul TIDRT TRINY Administration Clonidine HCl 0.3 mg 07/25/18 10:00 08/01/18 18:08 Catapres-Tts Patch TD 0.3 mg Mo TRINY Administration Dextrose 50 ml 07/19/18 02:51 D50w (25gm) Syringe IV PRN PRN Hypoglycemia Furosemide 20 mg 08/06/18 15:00 08/06/18 14:39 Lasix IV 08/06/18 15:01 20 mg QDAY ONE Administration Hydralazine HCl 20 mg 07/27/18 16:53 07/31/18 21:54 Apresoline IV 20 mg Q4HR PRN Administration Hypertension Piperacillin Sod/Tazobactam Sod 2.25 gm in 50 mls @ 100 mls/hr 08/03/18 14:00 08/06/18 14:24 Zosyn/Ns 2.25 Gm/50ml IV 100 mls/hr Q8HR TRINY Administration Protocol Amino Acids/Electrolytes/Dextrose 1,999.92 mls @ 83.33 mls/hr 08/06/18 20:00 Tpn Adult IV 08/07/18 19:59 DAILY@[facility] Protocol Insulin Glargine 20 units 08/02/18 11:00 08/06/18 10:14 Lantus SUB-Q 20 units DAILY TRINY Administration Insulin Human Lispro 0 unit 07/19/18 03:00 08/06/18 14:31 Humalog SUB-Q 3 unit Q4H TRINY Administration Protocol Labetalol HCl 10 mg 07/26/18 12:37 08/01/18 16:12 Normodyne IV 10 mg Q4H PRN Administration Blood Pressure Morphine Sulfate 2 mg 08/03/18 00:21 08/06/18 05:33 Morphine IV 2 mg Q3H PRN Administration Pain, Moderate (4-6) Multi-Ingred Cream/Lotion/Oil/Oint 1 applic 08/01/18 11:56 Artificial Tears Ophth Oint OU Q4HR PRN Dry Eye(s) Pantoprazole Sodium 40 mg 08/02/18 10:00 08/06/18 10:13 Protonix IV 40 mg QDAY TRINY Administration
[2018-08-06] MEDS ORDERED: LASIX IV ONE (15:00)
[2018-08-06] MEDS ORDERED: TPN ADULT 1,999.92 ML IV SCH (20:00)
[2018-08-06] MEDS: TPN ADULT 1,560 ML IV SCH (22:00)
[2018-08-07] MEDS: MORPHINE IV PRN ×3 (03:08→20:48)
[2018-08-07] MEDS: APRESOLINE IV PRN ×3 (03:09→20:49)
[2018-08-07] MEDS: HumaLOG SUB-Q SCH ×6 (03:18→18:19)
[2018-08-07 05:30] LABS: Albumin 2.3 g/dL (3.9-5); Calcium 8.9 mg/dL (8.4-10.2); Hematocrit 32.4 % (30.3-42.9); Hemoglobin 10.3 gm/dl (10.1-14.3); Mean Corpuscular HGB Conc 32 % (30-34); Mean Corpuscular Volume 88 fl (79-97); Platelet Count 200 K/mm3 (140-440)
[2018-08-07] MEDS: DUONEB *Not for PRN Use IH SCH ×4 (05:47→20:40)
[2018-08-07] MEDS: ZOSYN/NS 2.25 GM/50ML 2.25 GM/50 ML BAG IV SCH ×3 (05:47→21:11)
[2018-08-07 06:05] LABS: Anisocytosis 1+; Band Neutrophils # (Manual) 0.2 K/mm3; Basophils % (Manual) 0 % (0.0-1.8); Hypochromasia Few; Poikilocytosis 1+; Total Cells Counted 100
[2018-08-07 06:06] LABS: Platelet Estimate Consistent w Auto; Target Cells Few
[2018-08-07] MEDS: PROTONIX IV SCH (09:36)
[2018-08-07] MEDS: LANTUS SUB-Q SCH (09:36)
--- NOTE | 2018-08-07 11:22 | Progress Note ---
Assessment and Plan POD # 6 Pt somewhat somnolent. no compl as per family. pt wants to drink Abd soft. dressings dry hypoactive BS high Na & Cl noted. RN contacted to call hospitalist or renal for fluid and electrolyte correction. surgically stable will attempt cl liq diet Selected Entries 08/06/18 08/07/18 20:33 02:53 Temperature 97.5 F L Pulse Rate [ 75 Anterior Bilateral Throughout] Respiratory 22 Rate Laboratory Tests 08/07/18 08/07/18 04:00 04:00 WBC 9.1 Hgb 10.3 Hct 32.4 Sodium 152 H Potassium 4.8 Chloride 113.2 H Carbon Dioxide 24 BUN 81 H Creatinine 1.7 H Glucose 203 H Objective Vital Signs - 12hr 08/07/18 08/07/18 08/07/18 02:53 03:09 07:24 Temperature 97.5 F L Pulse Rate 87 Pulse Rate [ Anterior Bilateral Throughout] Respiratory 22 22 Rate Respiratory Rate [Anterior Bilateral Throughout] Blood Pressure 190/91 190/91 177/73 O2 Sat by Pulse 96 Oximetry 08/07/18 08/07/18 08/07/18 09:38 09:40 09:48 Temperature Pulse Rate Pulse Rate [ 89 87 Anterior Bilateral Throughout] Respiratory Rate Respiratory 18 18 Rate [Anterior Bilateral Throughout] Blood Pressure O2 Sat by Pulse 99 Oximetry - Labs 08/07/18 04:00 08/07/18 04:00 Diabetes panel 08/07/18 Range/Units 04:00 Sodium 152 H (137-145) mmol/L Potassium 4.8 (3.6-5.0) mmol/L Chloride 113.2 H (98-107) mmol/L Carbon Dioxide 24 (22-30) mmol/L BUN 81 H (7-17) mg/dL Creatinine 1.7 H (0.7-1.2) mg/dL Glucose 203 H (65-100) mg/dL Calcium 8.9 (8.4-10.2) mg/dL AST 22 (5-40) units/L ALT 14 (7-56) units/L Alkaline Phosphatase 88 (35-129) units/L Total Protein 7.4 D (6.3-8.2) g/dL Albumin 2.3 L (3.9-5) g/dL Calcium panel 08/07/18 Range/Units 04:00 Calcium 8.9 (8.4-10.2) mg/dL Phosphorus 2.60 (2.5-4.5) mg/dL Albumin 2.3 L (3.9-5) g/dL Pituitary panel 08/07/18 Range/Units 04:00 Sodium 152 H (137-145) mmol/L Potassium 4.8 (3.6-5.0) mmol/L Chloride 113.2 H (98-107) mmol/L Carbon Dioxide 24 (22-30) mmol/L BUN 81 H (7-17) mg/dL Creatinine 1.7 H (0.7-1.2) mg/dL Glucose 203 H (65-100) mg/dL Calcium 8.9 (8.4-10.2) mg/dL Adrenal panel 08/07/18 Range/Units 04:00 Sodium 152 H (137-145) mmol/L Potassium 4.8 (3.6-5.0) mmol/L Chloride 113.2 H (98-107) mmol/L Carbon Dioxide 24 (22-30) mmol/L BUN 81 H (7-17) mg/dL Creatinine 1.7 H (0.7-1.2) mg/dL Glucose 203 H (65-100) mg/dL Calcium 8.9 (8.4-10.2) mg/dL Total Bilirubin 0.40 (0.1-1.2) mg/dL AST 22 (5-40) units/L ALT 14 (7-56) units/L Alkaline Phosphatase 88 (35-129) units/L Total Protein 7.4 D (6.3-8.2) g/dL Albumin 2.3 L (3.9-5) g/dL
--- NOTE | 2018-08-07 11:43 | Progress Note ---
Assessment and Plan Assessment and plan: Patient is 87 yo woman with a history of DM, CHF and hypertension who presents to PSYCHIATRIC ED via EMS with AMS, falling at home, feeling hot, blood glucose was in the 40s and she was given oral glucose by EMS prior to arrival. Associated with falling is diaphoresis, lose of appetite, n/v, sob x 1 day. This is patient 3rd fall at home. She did complain of right upper quadrant, sharp intermittent severe, aggravated by certain movement, relieved by different positions. She was found to have bowel perforation. * CTAP with IV contrast IMPRESSION: Extensive inflammatory changes involving the cecum and proximal ascending colon extending posteriorly with pericolonic stranding. Diagnostic consideration would include appendicitis with perforation presuming the patient still has her appendix. The other possibility is severe diverticulitis with probable perforation. Extensive colonic diverticulosis. Uncomplicated cysts in both kidneys. Hysterectomy. Multilevel disc degeneration in the lumbar spine. Incidental note is made of a crescent-shaped area of mural thrombus at the thoracoabdominal junction involving the aorta. A remote dissection cannot entirely be excluded. * CTA chest pains IMPRESSION: 1. No evidence of pulmonary embolism. 2. Mild cardiomegaly 3. Lingular subsegmental atelectasis versus parenchymal scar 4. 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 No evidence of acute infarct or intracranial hemorrhage. 2. White matter lucency consistent with chronic microvascular ischemic disease. * pCXR IMPRESSION: Subpleural effusion and cardiomegaly * 07/25/[address] abd/pelvis without contrast FINDINGS: Small layering pleural effusions have developed measuring up to 1 cm in thickness. Heart size is stable at the upper limits of normal. The visualized lung bases are adequately aerated. The masslike lesion in the ascending colon appears stable in size and contour. There is no evidence for obstruction or leakage of contrast. There are scattered diverticula in the proximal colon. Mild inflammatory changes adjacent to this masslike lesion have decreased by 20% since the previous exam. It is unclear if this represents a colon mass or is associated with diverticulitis. I favor a colon mass. The liver, biliary system, pancreas, spleen, kidneys and adrenal glands remain unremarkable. The pelvic viscera are within normal limits. Hysterectomy changes are noted. IMPRESSION: Inflammatory changes adjacent to the right colon mass or diverticulitis has improved slightly. Overall, no overwhelming change. No new acute process. New small layering pleural effusions. * 08/01/[address] Wooten Procedure: Exploratory laparotomy, lysis of extensive adhesion, right hemicolectomy with ileocolic anastomosis "Findings: A very large mass extending outside of the colon into the retroperitoneum in the area of the hepatic flexure. Also, extensive adhesions involving the entire omentum as well as pelvis including small bowel deep in the pelvis. Technically difficult and challenging case....Final Impression: Stage IV cancer with extension into the surrounding fat and retroperitoneum. 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, s/p surgery 08/01/18, still intubated, s/p extubated 08/02/18 and transferred to [facility]: continue 02 support Hypertensive urgency, Bp controlled on the following: catapress patch, iv enalapril (will have to stop because worsening renal function), iv hydralazine and iv labetalol, ARF, ATN suspected: Nephrology following Recurrent falls with episodes of hypoglycemia: hold DM medication(s), treated with dextrose, following accuchecks Sepsis with suspected perforated bowel from colon cancer s/p surgery Acute metabolic encephalopathy: treat the hypoglycemia and sepsis 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 DNR Consulted and discuss with Dr. Jeter. Hold off on hospice, chance of chemotherapy if she gets better from current illness, which I think is a long shot because her performance wasn't that good prior to admission (she walked with a walker). Her renal failure/Cr has plateau and actually getting better. Still on TPN. Now, getting too much fluid, with fluid overload and hypernatremia, all needs to be adjusted in TPN. I d/w Pharmacist, Irasema, regarding TPN adjustment. pcXR showing bilateral effusion. Renal function is improving, really don't want to give lasix because renal function improving but gave her 20mg IV lasix x 1 on 08/06/18. TPN was started on 07/23/[address] Braden, General Surgeon, which Gen. Surgeon is managing but I am watching electrolytes closely. CCT 31 minutes History Interval history: Patient was seen and examined. Follow-up on current diagnosis of bowel perforation. Overnight uneventful. Patient denies any chest pain, shortness breath, nausea/vomiting or severe headaches. Imaging, nursing note, chart, labs and old chart reviewed. Discussed with patient. Hospitalist Physical - Physical exam Narrative exam: Gen: WDWN, NAD, Awake, Alert, Orientated x 1 HEENT: NCAT, EOMI, PERRL, OP Clear Neck: supple, no adenopathy, no thyromegaly, no JVD CVS/Heart: RRR, normal S1S2, pulses present bilaterally Chest/Lungs: diminished bs bilateral, Symmetrical chest expansion, good air entry bilaterally GI/Abdomen: soft diffusely tender, good bowel sounds, no guarding or rebound /Bladder: no suprapubic tenderness, no CVA or paraspinal tenderness Extermity/Skin: no c/c/e, no obvious rash MSK: FROM x 4 Neuro: CN 2-12 grossly intact, no new focal deficits Psych: calm - Constitutional Vitals: Temp Pulse Resp BP Pulse Ox 97.5 F L 87 18 177/73 99 08/07/18 02:53 08/07/18 09:48 08/07/18 09:48 08/07/18 07:24 08/07/18 09:40 General appearance: Present: no acute distress, well-nourished Results - Labs CBC & Chem 7: 08/07/18 04:00 08/07/18 04:00 Labs: Laboratory Last Values WBC 9.1 K/mm3 (4.5-11.0) 08/07/18 04:00 RBC 3.70 M/mm3 (3.65-5.03) 08/07/18 04:00 Hgb 10.3 gm/dl (10.1-14.3) 08/07/18 04:00 Hct 32.4 % (30.3-42.9) 08/07/18 04:00 MCV 88 fl (79-97) 08/07/18 04:00 MCH 28 pg (28-32) 08/07/18 04:00 MCHC 32 % (30-34) 08/07/18 04:00 RDW 20.0 % (13.2-15.2) H 08/07/18 04:00 Plt Count 200 K/mm3 (140-440) 08/07/18 04:00 Lymph % (Auto) 7.7 % (13.4-35.0) L 08/04/18 04:15 Avery % (Auto) Dredge Deckhand 08/06/18 04:41 Eos % (Auto) 1.0 % (0.0-4.3) 08/04/18 04:15 Baso % (Auto) 0.4 % (0.0-1.8) 08/04/18 04:15 Lymph # 0.9 K/mm3 (1.2-5.4) L 08/04/18 04:15 Avery # 1.1 K/mm3 (0.0-0.8) H 08/04/18 04:15 Eos # 0.1 K/mm3 (0.0-0.4) 08/04/18 04:15 Baso # 0.0 K/mm3 (0.0-0.1) 08/04/18 04:15 Add Manual Diff Complete 08/07/18 04:00 Total Counted 100 08/07/18 04:00 Seg Neutrophils % 80.6 % (40.0-70.0) H 08/04/18 04:15 Seg Neuts % (Manual) 78.0 % (40.0-70.0) H 08/07/18 04:00 Band Neutrophils % 2.0 % 08/07/18 04:00 Lymphocytes % (Manual) 10.0 % (13.4-35.0) L 08/07/18 04:00 Reactive Lymphs % (Man) 0 % 08/07/18 04:00 Monocytes % (Manual) 7.0 % (0.0-7.3) 08/07/18 04:00 Eosinophils % (Manual) 3.0 % (0.0-4.3) 08/07/18 04:00 Basophils % (Manual) 0 % (0.0-1.8) 08/07/18 04:00 Metamyelocytes % 0 % 08/07/18 04:00 Myelocytes % 0 % 08/07/18 04:00 Promyelocytes % 0 % 08/07/18 04:00 Blast Cells % 0 % 08/07/18 04:00 Nucleated RBC % Not Reportable 08/07/18 04:00 Seg Neutrophils # 8.9 K/mm3 (1.8-7.7) H 08/04/18 04:15 Seg Neutrophils # Man 7.1 K/mm3 (1.8-7.7) 08/07/18 04:00 Band Neutrophils # 0.2 K/mm3 08/07/18 04:00 Lymphocytes # (Manual) 0.9 K/mm3 (1.2-5.4) L 08/07/18 04:00 Abs React Lymphs (Man) 0.0 K/mm3 08/07/18 04:00 Monocytes # (Manual) 0.6 K/mm3 (0.0-0.8) 08/07/18 04:00 Eosinophils # (Manual) 0.3 K/mm3 (0.0-0.4) 08/07/18 04:00 Basophils # (Manual) 0.0 K/mm3 (0.0-0.1) 08/07/18 04:00 Metamyelocytes # 0.0 K/mm3 08/07/18 04:00 Myelocytes # 0.0 K/mm3 08/07/18 04:00 Promyelocytes # 0.0 K/mm3 08/07/18 04:00 Blast Cells # 0.0 K/mm3 08/07/18 04:00 WBC Morphology Not Reportable 08/07/18 04:00 Hypersegmented Neuts Not Reportable 08/07/18 04:00 Hyposegmented Neuts Not Reportable 08/07/18 04:00 Hypogranular Neuts Not Reportable 08/07/18 04:00 Smudge Cells Not Reportable 08/07/18 04:00 Toxic Granulation Not Reportable 08/07/18 04:00 Toxic Vacuolation Not Reportable 08/07/18 04:00 Dohle Bodies Not Reportable 08/07/18 04:00 Pelger-Huet Anomaly Not Reportable 08/07/18 04:00 Richard Rods Not Reportable 08/07/18 04:00 Platelet Estimate Consistent w auto 08/07/18 04:00 Clumped Platelets Not Reportable 08/07/18 04:00 Plt Clumps, EDTA Not Reportable 08/07/18 04:00 Large Platelets Not Reportable 08/07/18 04:00 Giant Platelets Not Reportable 08/07/18 04:00 Platelet Satelliting Not Reportable 08/07/18 04:00 Plt Morphology Comment Not Reportable 08/07/18 04:00 RBC Morphology Not Reportable 08/07/18 04:00 Dimorphic RBCs Not Reportable 08/07/18 04:00 Polychromasia Few 08/07/18 04:00 Hypochromasia Few 08/07/18 04:00 Poikilocytosis 1+ 08/07/18 04:00 Anisocytosis 1+ 08/07/18 04:00 Microcytosis Not Reportable 08/07/18 04:00 Macrocytosis Not Reportable 08/07/18 04:00 Spherocytes Not Reportable 08/07/18 04:00 Pappenheimer Bodies Not Reportable 08/07/18 04:00 Sickle Cells Not Reportable 08/07/18 04:00 Target Cells Few 08/07/18 04:00 Tear Drop Cells Not Reportable 08/07/18 04:00 Ovalocytes Not Reportable 08/07/18 04:00 Helmet Cells Not Reportable 08/07/18 04:00 Varela-Andover Bodies Not Reportable 08/07/18 04:00 Ava Rings Not Reportable 08/07/18 04:00 Betzy Cells Not Reportable 08/07/18 04:00 Bite Cells Not Reportable 08/07/18 04:00 Crenated Cell Not Reportable 08/07/18 04:00 Elliptocytes Not Reportable 08/07/18 04:00 Acanthocytes (Spur) Not Reportable 08/07/18 04:00 Rouleaux Not Reportable 08/07/18 04:00 Hemoglobin C Crystals Not Reportable 08/07/18 04:00 Schistocytes Not Reportable 08/07/18 04:00 Malaria parasites Not Reportable 08/07/18 04:00 Michi Bodies Not Reportable 08/07/18 04:00 Hem Pathologist Commnt No 08/07/18 04:00 PT 14.5 Sec. (12.2-14.9) 07/28/18 05:27 INR 1.09 (0.87-1.13) 07/28/18 05:27 APTT 23.2 Sec. (24.2-36.6) L 07/18/18 20:48 POC ABG pH 7.409 (7.35-7.45) 08/02/18 09:56 POC ABG pCO2 38.5 (35-45) 08/02/18 09:56 POC ABG pO2 70 (80-105) L 08/02/18 09:56 POC ABG HCO3 24.3 08/02/18 09:56 POC ABG Total CO2 25 08/02/18 09:56 POC ABG O2 Sat 94 08/02/18 09:56 POC ABG Base Excess 0 08/02/18 09:56 FiO2 40 % 08/02/18 09:56 Sodium 152 mmol/L (137-145) H 08/07/18 04:00 Potassium 4.8 mmol/L (3.6-5.0) 08/07/18 04:00 Chloride 113.2 mmol/L (98-107) H 08/07/18 04:00 Carbon Dioxide 24 mmol/L (22-30) 08/07/18 04:00 Anion Gap 20 mmol/L 08/07/18 04:00 BUN 81 mg/dL (7-17) H 08/07/18 04:00 Creatinine 1.7 mg/dL (0.7-1.2) H 08/07/18 04:00 Estimated GFR 34 ml/min 08/07/18 04:00 BUN/Creatinine Ratio 48 % 08/07/18 04:00 Glucose 203 mg/dL (65-100) H 08/07/18 04:00 POC Glucose 174 (70-105) H 08/07/18 11:00 Lactic Acid 1.10 mmol/L (0.7-2.0) 07/19/18 17:04 Calcium 8.9 mg/dL (8.4-10.2) 08/07/18 04:00 Phosphorus 2.60 mg/dL (2.5-4.5) 08/07/18 04:00 Magnesium 1.80 mg/dL (1.7-2.3) 08/07/18 04:00 Iron 17 ug/dL (37-170) L 08/07/18 04:00 TIBC 122 mcg/dL (250-450) L 08/07/18 04:00 Ferritin 205.8 ng/mL (13.0-400.0) 08/07/18 04:00 Total Bilirubin 0.40 mg/dL (0.1-1.2) 08/07/18 04:00 AST 22 units/L (5-40) 08/07/18 04:00 ALT 14 units/L (7-56) 08/07/18 04:00 Alkaline Phosphatase 88 units/L (35-129) 08/07/18 04:00 Total Creatine Kinase 48 units/L (30-135) 07/18/18 20:48 CK-MB (CK-2) < 1.0 ng/mL (0.0-4.0) 07/18/18 20:48 CK-MB (CK-2) Rel Index 2.0 (0-4) 07/18/18 20:48 Troponin T 0.025 ng/mL (0.00-0.029) 07/18/18 20:48 C-Reactive Protein 4.30 mg/dL (0.00-1.30) H 07/25/18 03:58 NT-Pro-B Natriuret Pep 462.4 pg/mL (0-900) 07/18/18 20:48 Total Protein 7.4 g/dL (6.3-8.2) D 08/07/18 04:00 Albumin 2.3 g/dL (3.9-5) L 08/07/18 04:00 Albumin/Globulin Ratio 0.5 % 08/07/18 04:00 Carcinoembryonic Ag See scanned result 07/22/18 13:47 Vitamin B12 1012 pg/mL (211-911) H 08/07/18 04:00 Folate 12.21 ng/mL (7.3-26.0) 08/07/18 04:00 Urine Color Yellow (Yellow) 07/18/18 21:49 Urine Turbidity Clear (Clear) 07/18/18 21:49 Urine pH 5.0 (5.0-7.0) 07/18/18 21:49 Ur Specific Matador 1.019 (1.003-1.030) 07/18/18 21:49 Urine Protein <15 mg/dl mg/dL (Negative) 07/18/18 21:49 Urine Glucose (UA) Neg mg/dL (Negative) 07/18/18 21:49 Urine Ketones Neg mg/dL (Negative) 07/18/18 21:49 Urine Blood Neg (Negative) 07/18/18 21:49 Urine Nitrite Neg (Negative) 07/18/18 21:49 Urine Bilirubin Neg (Negative) 07/18/18 21:49 Urine Urobilinogen 4.0 mg/dL (<2.0) 07/18/18 21:49 Ur Leukocyte Esterase Neg (Negative) 07/18/18 21:49 Urine WBC (Auto) 2.0 /HPF (0.0-6.0) 07/18/18 21:49 Urine RBC (Auto) < 1.0 /HPF (0.0-6.0) 07/18/18 21:49 U Epithel Cells (Auto) 3.0 /HPF (0-13.0) 07/18/18 21:49 Urine Mucus Few /HPF 07/18/18 21:49 Blood Type B POSITIVE 08/04/18 16:04 Antibody Screen Negative 08/04/18 16:04 Crossmatch See Detail 08/01/18 07:18 Nutrition/Malnutrition Assess - Dietary Evaluation Nutrition/Malnutrition Findings: Nutrition Notes Start: 07/22/18 14:00 Freq: Status: Active Protocol: Document 08/07/18 09:53 SHYANNE (Rec: 08/07/18 10:04 SHYANNE [email or web address]) Nutrition Notes Initial or Follow up Reassessment Current Diagnosis Diabetes Sepsis Hypertension Heart Failure Other Pertinent Diagnosis Stage IV CA s/p exp lap with ( R) colectomy Current Diet CPN at 65mL/hr Labs/Tests Na 152 Cl 113.2 BUN 81 Cr 1.7 BG 203 Fe 17 TIBC 122 Pertinent Medications Reviewed Height 5 ft 5 in Weight 98.3 kg Rice Body Weight (lbs) 125.0 BMI 36.0 Weight change and time frame Current wt obtained from bed scale Subjective/Other Information Day 16 CPN. Observed CPN infusing at 65ml/hr. NGT removed. Percent of energy/protein needs met: 84% energy 100% pro Burn Absent Trauma Absent #1 Nutrition Diagnosis Altered GI function Diagnosis Progress(for reassessment Continues documentation) Is patient on ventilator? No Is Patient Ambulatory and/or Out of Bed No REE-([facility]-confined to bed) 1715.724 Kcal/Kg value to use for calculation 13 Approximate Energy Requirements Using 1278 kcal/Kg Calculation Used for Recommendations Kcal/kg Additional Notes Pro needs 1-1.2g/kg adjBW: 78- 93g/day Fluid needs 1.5L/day Nutrition Intervention Nutrition Support: Continue CPN at 65ml/hr: MVI, 0mEq K, 0mmol Phos, 3mEq Mg. Osmolality: 1230. Spoke with pharmacist to discuss adjustment of Phos since both Na and K were zeroed (phos usually added as a combination with either Na or K). Pt is receiving 8mEq Na and 8mmol of Phos intrinsically from amino acids, so although TPN order reflects no Na, or Phos being given, the patient is actually receiving some. Kcal 1,077 Protein (gm) 78 Carbohydrates (gm) 225 Fat (gm) 0 Fluid (mL) 1,560 Fiber (gm) 0 Goal #1 PN to meet 80-100% nutrient needs Follow-Up By: 08/08/18 Additional Comments Labs in am: BMP, Mg, Phos
--- NOTE | 2018-08-07 11:59 | Progress Note ---
Assessment and Plan Impression: * Acute kidney injury secondary multifactorial etioloiges: prerenal azotemia, sepsis related ATN, contrast induced nephropathy * Stage IV adenocarcinoma of colon * s/p right hemicolectomy, ileocolic anastamosis * Sepsis * Intraabdominal abscess w/?perforation vs necrotic tumor * Hypernatermia * Hypertension Plan: * SCr is stable * Sodium is increasing - PPN adjusted - Na removed; continue to follow; will start D5W if unimproved * Abx per ID * Continue antiHTN medications - clonidine patch; prn Labetalol and Hydralazine * Transfuse pRBC per primary team * Consultants' recommendations reviewed * Avoid nephrotoxins * Dose medications for renal function Subjective Date of service: 08/07/18 Principal diagnosis: colon ca Interval history: No acute events overnight. She has no complaints Objective - Vital Signs Vital signs: Vital Signs - 12hr 08/07/18 08/07/18 08/07/18 02:53 03:09 07:24 Temperature 97.5 F L Pulse Rate 87 Pulse Rate [ Anterior Bilateral Throughout] Respiratory 22 22 Rate Respiratory Rate [Anterior Bilateral Throughout] Blood Pressure 190/91 190/91 177/73 O2 Sat by Pulse 96 Oximetry 08/07/18 08/07/18 08/07/18 09:38 09:40 09:48 Temperature Pulse Rate Pulse Rate [ 89 87 Anterior Bilateral Throughout] Respiratory Rate Respiratory 18 18 Rate [Anterior Bilateral Throughout] Blood Pressure O2 Sat by Pulse 99 Oximetry - General Appearance General appearance: well-developed, well-nourished EENT: ATNC Respiratory: Present: Clear to Ascultation Cardiology: regular, S1S2 Gastrointestinal: hypoactive bowel sounds Integumentary: warm and dry Musculoskeletal: other (no edema) Psychiatric: cooperative - Lab 08/07/18 04:00 08/07/18 04:00 Most recent lab results Calcium 8.9 mg/dL (8.4-10.2) 08/07/18 04:00 Phosphorus 2.60 mg/dL (2.5-4.5) 08/07/18 04:00 Magnesium 1.80 mg/dL (1.7-2.3) 08/07/18 04:00 Medications & Allergies - Medications Allergies/Adverse Reactions: Allergies No Known Allergies Allergy (Unverified 07/18/18 20:42) Home Medications: Home Medications Medication Instructions Recorded Confirmed Last Taken Type Furosemide [Lasix] 20 mg PO DAILY 07/19/18 07/19/18 07/18/18 History Insulin Aspart [Novolog Flexpen] 100 unit SQ TID 07/19/18 07/19/18 07/18/18 History Losartan Potassium [Cozaar] 50 mg PO DAILY 07/19/18 07/19/18 07/18/18 History Metoprolol Xl [Metoprolol 25 mg PO QDAY 07/19/18 07/19/18 07/18/18 History SUCCINATE ER TAB] Naproxen 500 mg PO BID 07/19/18 07/19/18 07/18/18 History Ranitidine HCl [Acid Control] 150 mg PO BID 07/19/18 07/19/18 07/18/18 History Active Medications: Generic Name Dose Route Start Last Admin Trade Name Freq PRN Reason Stop Dose Admin Albuterol 2.5 mg 07/24/18 20:13 07/24/18 20:31 Proventil IH 2.5 mg Q4HRT PRN Administration Shortness Of Breath Albuterol/Ipratropium 1 ampul 07/25/18 14:00 08/07/18 09:38 Duoneb *Not For Prn Use* IH 1 ampul TIDRT TRINY Administration Clonidine HCl 0.3 mg 07/25/18 10:00 08/01/18 18:08 Catapres-Tts Patch TD 0.3 mg Mo TRINY Administration Dextrose 50 ml 07/19/18 02:51 D50w (25gm) Syringe IV PRN PRN Hypoglycemia Hydralazine HCl 20 mg 07/27/18 16:53 08/07/18 03:09 Apresoline IV 20 mg Q4HR PRN Administration Hypertension Piperacillin Sod/Tazobactam Sod 2.25 gm in 50 mls @ 100 mls/hr 08/03/18 14:00 08/07/18 05:47 Zosyn/Ns 2.25 Gm/50ml IV 100 mls/hr Q8HR TRINY Administration Protocol Amino Acids/Electrolytes/Dextrose 1,560 mls @ 65 mls/hr 08/06/18 20:00 08/06/18 22:00 Tpn Adult IV 65 mls/hr DAILY@2000 TRINY Administration Protocol Amino Acids/Electrolytes/Dextrose 1,560 mls @ 65 mls/hr 08/07/18 20:00 Tpn Adult IV 08/08/18 19:59 DAILY@1999 [facility] Protocol Insulin Glargine 20 units 08/02/18 11:00 08/07/18 09:36 Lantus SUB-Q 20 units DAILY TRINY Administration Insulin Human Lispro 0 unit 07/19/18 03:00 08/07/18 07:32 Humalog SUB-Q 4 unit Q4H TRINY Administration Protocol Labetalol HCl 10 mg 07/26/18 12:37 08/01/18 16:12 Normodyne IV 10 mg Q4H PRN Administration Blood Pressure Morphine Sulfate 2 mg 08/03/18 00:21 08/07/18 03:08 Morphine IV 2 mg Q3H PRN Administration Pain, Moderate (4-6) Multi-Ingred Cream/Lotion/Oil/Oint 1 applic 08/01/18 11:56 Artificial Tears Ophth Oint OU Q4HR PRN Dry Eye(s) Pantoprazole Sodium 40 mg 08/02/18 10:00 08/07/18 09:36 Protonix IV 40 mg QDAY TRINY Administration
[2018-08-07] MEDS ORDERED: TPN ADULT 1,560 ML IV SCH (20:00)
[2018-08-08] MEDS: HumaLOG SUB-Q SCH ×7 (00:34→23:08)
[2018-08-08] MEDS: TPN ADULT 1,560 ML IV SCH (02:22)
[2018-08-08] MEDS: MORPHINE IV PRN ×2 (05:03→08:26)
[2018-08-08] MEDS: NORMODYNE IV PRN (05:06)
[2018-08-08] MEDS: ZOSYN/NS 2.25 GM/50ML 2.25 GM/50 ML BAG IV SCH (05:14)
[2018-08-08 07:03] LABS: Calcium 9.2 mg/dL (8.4-10.2)
--- NOTE | 2018-08-08 08:04 | Hem/Onc Progress Note ---
Assessment and Plan 1. T4a N0 Mx adenocarcinoma.bowel perforation, hence labeled as stage 4. 2. A 12 lymph nodes were negative. 3. History of diabetes. 4. History of hypertension. 5. History of fall. 6. History of metabolic encephalopathy. 7. 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 8. History of respiratory failure. 9. History of renal impairment. 10. As per the nursing staff, the patient is DNR. The patient received blood transfusion for anemia. 11. The patient is elderly. 12. As per the information, the patient had bowel perforation, hence labeled as stage 4. 13. The patient was intubated at one time during this admission. 14. I will follow the patient. d/w dr meza d/w family pt was using a walker before coming if pts performance improves - willl look into immune based or targetted therapy abdo drain+ 08/08 - CEA 5.6 will await in pts performance status to decide options - Patient Problems (1) Colon cancer Current Visit: Yes Status: Acute Subjective Date of service: 08/08/18 Principal diagnosis: colon cancer Interval history: pt on medical floor says - no pain Objective - Constitutional Vitals: Last Vital Signs Temp 97.7 F 08/08/18 02:13 Pulse 98 H 08/08/18 05:06 Resp 22 08/08/18 02:13 BP 215/113 08/08/18 05:06 Pulse Ox 94 08/08/18 02:42 Pain Intensity (0-10): denies any pain General appearance: no acute distress Performance status: 3-limited selfcare - EENT Eyes: EOM intact ENT: clear oral mucosa Lymph node exam: negative cervical - Neck Neck: normal ROM - Respiratory Respiratory effort: Positive: normal Respiratory: bilateral: diminished - Cardiovascular Heart Sounds: Present: S1 & S2 Extremity abnormal: edema - Gastrointestinal General gastrointestinal: Present: soft, other (drain+) Rectal Exam: deferred - Genitourinary Female genitourinary: Present: deferred - Integumentary Integumentary: warm - Musculoskeletal Musculoskeletal: generalized weakness - Labs Lab Results: Laboratory Results - last 24 hr 08/07/18 08/07/18 08/07/18 11:00 15:43 18:09 Sodium Potassium Chloride Carbon Dioxide Anion Gap BUN Creatinine Estimated GFR BUN/Creatinine Ratio Glucose POC Glucose 174 H 201 H 210 H Calcium Phosphorus Magnesium 08/08/18 08/08/18 08/08/18 02:13 08:00 Unknown Sodium 153 H Potassium 3.9 Chloride 115.1 H Carbon Dioxide 26 Anion Gap 16 BUN 74 H Creatinine 1.4 H Estimated GFR 43 BUN/Creatinine Ratio 53 Glucose 255 H POC Glucose 229 H 254 H Calcium 9.2 Phosphorus 2.40 L Magnesium 1.70 Medications & Allergies - Medications Allergies/Adverse Reactions: Allergies No Known Allergies Allergy (Unverified 07/18/18 20:42) Home Medications: Home Medications Medication Instructions Recorded Confirmed Last Taken Type Furosemide [Lasix] 20 mg PO DAILY 07/19/18 07/19/18 07/18/18 History Insulin Aspart [Novolog Flexpen] 100 unit SQ TID 07/19/18 07/19/18 07/18/18 History Losartan Potassium [Cozaar] 50 mg PO DAILY 07/19/18 07/19/18 07/18/18 History Metoprolol Xl [Metoprolol 25 mg PO QDAY 07/19/18 07/19/18 07/18/18 History SUCCINATE ER TAB] Naproxen 500 mg PO BID 07/19/18 07/19/18 07/18/18 History Ranitidine HCl [Acid Control] 150 mg PO BID 07/19/18 07/19/18 07/18/18 History Active Medications: Generic Name Dose Route Start Last Admin Trade Name Freq PRN Reason Stop Dose Admin Albuterol 2.5 mg 07/24/18 20:13 07/24/18 20:31 Proventil IH 2.5 mg Q4HRT PRN Administration Shortness Of Breath Albuterol/Ipratropium 1 ampul 07/25/18 14:00 08/07/18 20:40 Duoneb *Not For Prn Use* IH 1 ampul TIDRT TRINY Administration Clonidine HCl 0.3 mg 07/25/18 10:00 08/01/18 18:08 Catapres-Tts Patch TD 0.3 mg Mo TRINY Administration Dextrose 50 ml 07/19/18 02:51 D50w (25gm) Syringe IV PRN PRN Hypoglycemia Hydralazine HCl 20 mg 07/27/18 16:53 08/07/18 20:49 Apresoline IV 20 mg Q4HR PRN Administration Hypertension Amino Acids/Electrolytes/Dextrose 1,560 mls @ 65 mls/hr 08/06/18 20:00 08/08/18 02:22 Tpn Adult IV Not Given DAILY@1999 [facility] Protocol Amino Acids/Electrolytes/Dextrose 1,560 mls @ 65 mls/hr 08/07/18 20:00 08/07/18 20:47 Tpn Adult IV 08/08/18 19:59 65 mls/hr DAILY@1999 TRINY Administration Protocol Piperacillin Sod/Tazobactam Sod 2.25 gm in 50 mls @ 100 mls/hr 08/08/18 12:00 Zosyn/Ns 2.25 Gm/50ml IV Q6HR [facility] Protocol Insulin Glargine 20 units 08/02/18 11:00 08/07/18 09:36 Lantus SUB-Q 20 units DAILY TRINY Administration Insulin Human Lispro 0 unit 07/19/18 03:00 08/08/18 05:04 Humalog SUB-Q 8 unit Q4H TRINY Administration Protocol Labetalol HCl 10 mg 07/26/18 12:37 08/08/18 05:06 Normodyne IV 10 mg Q4H PRN Administration Blood Pressure Morphine Sulfate 2 mg 08/03/18 00:21 08/08/18 05:03 Morphine IV 2 mg Q3H PRN Administration Pain, Moderate (4-6) Multi-Ingred Cream/Lotion/Oil/Oint 1 applic 08/01/18 11:56 Artificial Tears Ophth Oint OU Q4HR PRN Dry Eye(s) Pantoprazole Sodium 40 mg 08/02/18 10:00 08/07/18 09:36 Protonix IV 40 mg QDAY TRINY Administration
[2018-08-08] MEDS: APRESOLINE IV PRN (08:25)
[2018-08-08] MEDS: PROTONIX IV SCH ×2 (08:26→10:00)
--- NOTE | 2018-08-08 08:58 | Progress Note ---
Assessment and Plan Cultures: 07/19/2018 blood culture: no growth 07/22/2018 blood culture: no growth Assessment: 87-year-old female with diabetes mellitus, congestive heart failure, HTN admitted with: 1) Sepsis Resolved, secondary to perforated colon mass - malignant: - s/p surgery on 08/01/2018. Detailed operative note pending. - completed IV Cefepime and Flagyl x 15 days - switched to IV zosyn 08/03/2018, given worsening renal function and high risk of neurotoxicity from Cefepime in this setting (renal failure, elderly patient) 2) Acute renal failure: Improved. Renally dose abx. 3) Acute encephalopathy: will avoid Cefepime. 4) DM-2 - stable Recs: - Discontinue Zosyn - Gen Surgery following -Clinically stable, monitor off antibiotics [facility] M: [phone] O:[phone] Subjective Date of service: 08/08/18 Principal diagnosis: colon ca Interval history: Patient seen and examined. Asleep. not easily arousable. Nephew at bedside. Nurses note, labs, imaging and reports reviewed. Objective - Exam Narrative Exam: Constitutional: Asleep, not easily arousable. No acute distress observed Head, Ears, Nose: Normocephalic, atraumatic. External ears, nose normal Eyes: Conjunctivae/corneas clear. No icterus. No ptosis. Neck: Supple, no meningeal signs Cardiovascular: S1, S2 normal. Respiratory: Good air entry, clear to auscultation bilaterally GI: Soft, non tender; hypoactive bowel sounds +. No rebound tenderness Musculoskeletal: No pedal edema, no cyanosis. Skin: No rash or abscess Hem/Lymphatic: No palpable cervical or supraclavicular nodes. No lymphangitis Psych: Mood: unable to assess Neurological: somnolent - Constitutional Vitals: Vital Signs Temp Pulse Resp BP Pulse Ox 97.4 F L 74 20 252/115 97 08/08/18 07:55 08/08/18 08:25 08/08/18 07:55 08/08/18 08:25 08/08/18 07:55 Temperature -Last 24 Hours Temperature 97.4 F Temperature 97.7 F Temperature 99.0 F Temperature 98.4 F - Labs CBC & Chem 7: 08/07/18 04:00 08/08/18 Unknown Labs: Abnormal lab results 08/07/18 08/07/18 08/07/18 Range/Units 11:00 15:43 18:09 Sodium (137-145) mmol/L Chloride (98-107) mmol/L BUN (7-17) mg/dL Creatinine (0.7-1.2) mg/dL Glucose (65-100) mg/dL POC Glucose 174 H 201 H 210 H (70-105) Phosphorus (2.5-4.5) mg/dL 08/08/18 08/08/18 08/08/18 Range/Units 02:13 08:00 Unknown Sodium 153 H (137-145) mmol/L Chloride 115.1 H (98-107) mmol/L BUN 74 H (7-17) mg/dL Creatinine 1.4 H (0.7-1.2) mg/dL Glucose 255 H (65-100) mg/dL POC Glucose 229 H 254 H (70-105) Phosphorus 2.40 L (2.5-4.5) mg/dL
--- NOTE | 2018-08-08 09:00 | Progress Note ---
Assessment and Plan Impression: * Acute kidney injury secondary multifactorial etioloiges: prerenal azotemia, sepsis related ATN, contrast induced nephropathy * Stage IV adenocarcinoma of colon * s/p right hemicolectomy, ileocolic anastamosis * Sepsis * Intraabdominal abscess w/?perforation vs necrotic tumor * Hypernatermia * Hypertension Plan: * SCr is stable * Sodium continues to increase; will start D5W 60ml/hour * Abx per ID * Continue antiHTN medications - clonidine patch; prn Labetalol and Hydralazine * Transfuse pRBC per primary team * Consultants' recommendations reviewed * Avoid nephrotoxins * Dose medications for renal function Subjective Date of service: 08/08/18 Principal diagnosis: colon ca Interval history: No acute events overnight. Niece at bedside. States that patient recently received pain medication Objective - Vital Signs Vital signs: Vital Signs - 12hr 08/08/18 08/08/18 08/08/18 02:13 02:42 05:06 Temperature 97.7 F Pulse Rate 98 H 98 H Respiratory 22 Rate Blood Pressure 215/113 215/113 O2 Sat by Pulse 94 Oximetry 08/08/18 08/08/18 07:55 08:25 Temperature 97.4 F L Pulse Rate 74 74 Respiratory 20 Rate Blood Pressure 252/115 252/115 O2 Sat by Pulse 97 Oximetry - General Appearance General appearance: well-developed, well-nourished EENT: ATNC Respiratory: Present: Decreased Breath Sounds Cardiology: regular, S1S2 Gastrointestinal: absent bowel sounds Integumentary: no rash, warm and dry Musculoskeletal: other (no edema) - Lab 08/07/18 04:00 08/08/18 Unknown Most recent lab results Calcium 9.2 mg/dL (8.4-10.2) 08/08/18 Unknown Phosphorus 2.40 mg/dL (2.5-4.5) L 08/08/18 Unknown Magnesium 1.70 mg/dL (1.7-2.3) 08/08/18 Unknown Medications & Allergies - Medications Allergies/Adverse Reactions: Allergies No Known Allergies Allergy (Unverified 07/18/18 20:42) Home Medications: Home Medications Medication Instructions Recorded Confirmed Last Taken Type Furosemide [Lasix] 20 mg PO DAILY 07/19/18 07/19/18 07/18/18 History Insulin Aspart [Novolog Flexpen] 100 unit SQ TID 07/19/18 07/19/18 07/18/18 History Losartan Potassium [Cozaar] 50 mg PO DAILY 07/19/18 07/19/18 07/18/18 History Metoprolol Xl [Metoprolol 25 mg PO QDAY 07/19/18 07/19/18 07/18/18 History SUCCINATE ER TAB] Naproxen 500 mg PO BID 07/19/18 07/19/18 07/18/18 History Ranitidine HCl [Acid Control] 150 mg PO BID 07/19/18 07/19/18 07/18/18 History Active Medications: Generic Name Dose Route Start Last Admin Trade Name Freq PRN Reason Stop Dose Admin Albuterol 2.5 mg 07/24/18 20:13 07/24/18 20:31 Proventil IH 2.5 mg Q4HRT PRN Administration Shortness Of Breath Albuterol/Ipratropium 1 ampul 07/25/18 14:00 08/07/18 20:40 Duoneb *Not For Prn Use* IH 1 ampul TIDRT TRINY Administration Clonidine HCl 0.3 mg 07/25/18 10:00 08/01/18 18:08 Catapres-Tts Patch TD 0.3 mg Mo TRINY Administration Dextrose 50 ml 07/19/18 02:51 D50w (25gm) Syringe IV PRN PRN Hypoglycemia Hydralazine HCl 20 mg 07/27/18 16:53 08/08/18 08:25 Apresoline IV 20 mg Q4HR PRN Administration Hypertension Amino Acids/Electrolytes/Dextrose 1,560 mls @ 65 mls/hr 08/06/18 20:00 08/08/18 02:22 Tpn Adult IV Not Given DAILY@1999 [facility] Protocol Amino Acids/Electrolytes/Dextrose 1,560 mls @ 65 mls/hr 08/07/18 20:00 08/07/18 20:47 Tpn Adult IV 08/08/18 19:59 65 mls/hr DAILY@1999 [facility] Administration Protocol Piperacillin Sod/Tazobactam Sod 2.25 gm in 50 mls @ 100 mls/hr 08/08/18 12:00 Zosyn/Ns 2.25 Gm/50ml IV Q6HR [facility] Protocol Insulin Glargine 20 units 08/02/18 11:00 08/07/18 09:36 Lantus SUB-Q 20 units DAILY TRINY Administration Insulin Human Lispro 0 unit 07/19/18 03:00 08/08/18 08:26 Humalog SUB-Q 6 unit Q4H TRINY Administration Protocol Labetalol HCl 10 mg 07/26/18 12:37 08/08/18 05:06 Normodyne IV 10 mg Q4H PRN Administration Blood Pressure Morphine Sulfate 2 mg 08/03/18 00:21 08/08/18 08:26 Morphine IV 2 mg Q3H PRN Administration Pain, Moderate (4-6) Multi-Ingred Cream/Lotion/Oil/Oint 1 applic 08/01/18 11:56 Artificial Tears Ophth Oint OU Q4HR PRN Dry Eye(s) Pantoprazole Sodium 40 mg 08/02/18 10:00 08/08/18 08:26 Protonix IV 40 mg QDAY TRINY Administration
[2018-08-08] MEDS: DUONEB *Not for PRN Use IH SCH ×3 (09:40→21:16)
[2018-08-08] MEDS: LANTUS SUB-Q SCH (10:02)
[2018-08-08] MEDS: CATAPRES-TTS PATCH TD SCH (10:02)
[2018-08-08] MEDS: D5W 1,000 ML IV SCH (11:16)
--- NOTE | 2018-08-08 11:36 | Progress Note ---
Assessment and Plan Assessment and plan: Patient is 87 yo woman with a history of DM, CHF and hypertension who presents to [facility] ED via EMS with AMS, falling at home, feeling hot, blood glucose was in the 40s and she was given oral glucose by EMS prior to arrival. Associated with falling is diaphoresis, lose of appetite, n/v, sob x 1 day. This is patient 3rd fall at home. She did complain of right upper quadrant, sharp intermittent severe, aggravated by certain movement, relieved by different positions. She was found to have bowel perforation. * CTAP with IV contrast IMPRESSION: Extensive inflammatory changes involving the cecum and proximal ascending colon extending posteriorly with pericolonic stranding. Diagnostic consideration would include appendicitis with perforation presuming the patient still has her appendix. The other possibility is severe diverticulitis with probable perforation. Extensive colonic diverticulosis. Uncomplicated cysts in both kidneys. Hysterectomy. Multilevel disc degeneration in the lumbar spine. Incidental note is made of a crescent-shaped area of mural thrombus at the thoracoabdominal junction involving the aorta. A remote dissection cannot entirely be excluded. * CTA chest pains IMPRESSION: 1. No evidence of pulmonary embolism. 2. Mild cardiomegaly 3. Lingular subsegmental atelectasis versus parenchymal scar 4. 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 No evidence of acute infarct or intracranial hemorrhage. 2. White matter lucency consistent with chronic microvascular ischemic disease. * pCXR IMPRESSION: Subpleural effusion and cardiomegaly * 07/25/[address] abd/pelvis without contrast FINDINGS: Small layering pleural effusions have developed measuring up to 1 cm in thickness. Heart size is stable at the upper limits of normal. The visualized lung bases are adequately aerated. The masslike lesion in the ascending colon appears stable in size and contour. There is no evidence for obstruction or leakage of contrast. There are scattered diverticula in the proximal colon. Mild inflammatory changes adjacent to this masslike lesion have decreased by 20% since the previous exam. It is unclear if this represents a colon mass or is associated with diverticulitis. I favor a colon mass. The liver, biliary system, pancreas, spleen, kidneys and adrenal glands remain unremarkable. The pelvic viscera are within normal limits. Hysterectomy changes are noted. IMPRESSION: Inflammatory changes adjacent to the right colon mass or diverticulitis has improved slightly. Overall, no overwhelming change. No new acute process. New small layering pleural effusions. * 08/01/[address] Wooten Procedure: Exploratory laparotomy, lysis of extensive adhesion, right hemicolectomy with ileocolic anastomosis "Findings: A very large mass extending outside of the colon into the retroperitoneum in the area of the hepatic flexure. Also, extensive adhesions involving the entire omentum as well as pelvis including small bowel deep in the pelvis. Technically difficult and challenging case....Final Impression: Stage IV cancer with extension into the surrounding fat and retroperitoneum. 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 TPN was started on 07/23/[address] 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 DNR History Interval history: Patient was seen and examined. Follow-up on current diagnosis of bowel perforation. Overnight uneventful. Patient denies any chest pain, shortness breath, nausea/vomiting or severe headaches. Imaging, nursing note, chart, labs and old chart reviewed. Discussed with patient. Hospitalist Physical - Physical exam Narrative exam: Gen: WDWN, NAD, Awake, Alert, Orientated x 1 HEENT: NCAT, EOMI, PERRL, OP Clear Neck: supple, no adenopathy, no thyromegaly, no JVD CVS/Heart: RRR, normal S1S2, pulses present bilaterally Chest/Lungs: diminished bs bilateral, Symmetrical chest expansion, good air entry bilaterally GI/Abdomen: soft diffusely tender, good bowel sounds, no guarding or rebound /Bladder: no suprapubic tenderness, no CVA or paraspinal tenderness Extermity/Skin: no c/c/e, no obvious rash MSK: FROM x 4 Neuro: CN 2-12 grossly intact, no new focal deficits Psych: calm - Constitutional Vitals: Temp Pulse Resp BP Pulse Ox 97.4 F L 80 16 220/102 96 08/08/18 07:55 08/08/18 09:47 08/08/18 09:47 08/08/18 10:02 08/08/18 09:47 General appearance: Present: no acute distress, well-nourished Results - Labs CBC & Chem 7: 08/07/18 04:00 08/08/18 Unknown Labs: Laboratory Last Values WBC 9.1 K/mm3 (4.5-11.0) 08/07/18 04:00 RBC 3.70 M/mm3 (3.65-5.03) 08/07/18 04:00 Hgb 10.3 gm/dl (10.1-14.3) 08/07/18 04:00 Hct 32.4 % (30.3-42.9) 08/07/18 04:00 MCV 88 fl (79-97) 08/07/18 04:00 MCH 28 pg (28-32) 08/07/18 04:00 MCHC 32 % (30-34) 08/07/18 04:00 RDW 20.0 % (13.2-15.2) H 08/07/18 04:00 Plt Count 200 K/mm3 (140-440) 08/07/18 04:00 Lymph % (Auto) 7.7 % (13.4-35.0) L 08/04/18 04:15 [place] % (Auto) [employer] Service Technician 08/06/18 04:41 Eos % (Auto) 1.0 % (0.0-4.3) 08/04/18 04:15 Baso % (Auto) 0.4 % (0.0-1.8) 08/04/18 04:15 Lymph # 0.9 K/mm3 (1.2-5.4) L 08/04/18 04:15 [place] # 1.1 K/mm3 (0.0-0.8) H 08/04/18 04:15 Eos # 0.1 K/mm3 (0.0-0.4) 08/04/18 04:15 Baso # 0.0 K/mm3 (0.0-0.1) 08/04/18 04:15 Add Manual Diff Complete 08/07/18 04:00 Total Counted 100 08/07/18 04:00 Seg Neutrophils % 80.6 % (40.0-70.0) H 08/04/18 04:15 Seg Neuts % (Manual) 78.0 % (40.0-70.0) H 08/07/18 04:00 Band Neutrophils % 2.0 % 08/07/18 04:00 Lymphocytes % (Manual) 10.0 % (13.4-35.0) L 08/07/18 04:00 Reactive Lymphs % (Man) 0 % 08/07/18 04:00 Monocytes % (Manual) 7.0 % (0.0-7.3) 08/07/18 04:00 Eosinophils % (Manual) 3.0 % (0.0-4.3) 08/07/18 04:00 Basophils % (Manual) 0 % (0.0-1.8) 08/07/18 04:00 Metamyelocytes % 0 % 08/07/18 04:00 Myelocytes % 0 % 08/07/18 04:00 Promyelocytes % 0 % 08/07/18 04:00 Blast Cells % 0 % 08/07/18 04:00 Nucleated RBC % Not Reportable 08/07/18 04:00 Seg Neutrophils # 8.9 K/mm3 (1.8-7.7) H 08/04/18 04:15 Seg Neutrophils # Man 7.1 K/mm3 (1.8-7.7) 08/07/18 04:00 Band Neutrophils # 0.2 K/mm3 08/07/18 04:00 Lymphocytes # (Manual) 0.9 K/mm3 (1.2-5.4) L 08/07/18 04:00 Abs React Lymphs (Man) 0.0 K/mm3 08/07/18 04:00 Monocytes # (Manual) 0.6 K/mm3 (0.0-0.8) 08/07/18 04:00 Eosinophils # (Manual) 0.3 K/mm3 (0.0-0.4) 08/07/18 04:00 Basophils # (Manual) 0.0 K/mm3 (0.0-0.1) 08/07/18 04:00 Metamyelocytes # 0.0 K/mm3 08/07/18 04:00 Myelocytes # 0.0 K/mm3 08/07/18 04:00 Promyelocytes # 0.0 K/mm3 08/07/18 04:00 Blast Cells # 0.0 K/mm3 08/07/18 04:00 WBC Morphology Not Reportable 08/07/18 04:00 Hypersegmented Neuts Not Reportable 08/07/18 04:00 Hyposegmented Neuts Not Reportable 08/07/18 04:00 Hypogranular Neuts Not Reportable 08/07/18 04:00 Smudge Cells Not Reportable 08/07/18 04:00 Toxic Granulation Not Reportable 08/07/18 04:00 Toxic Vacuolation Not Reportable 08/07/18 04:00 Dohle Bodies Not Reportable 08/07/18 04:00 Pelger-Huet Anomaly Not Reportable 08/07/18 04:00 Richard Rods Not Reportable 08/07/18 04:00 Platelet Estimate Consistent w auto 08/07/18 04:00 Clumped Platelets Not Reportable 08/07/18 04:00 Plt Clumps, EDTA Not Reportable 08/07/18 04:00 Large Platelets Not Reportable 08/07/18 04:00 Giant Platelets Not Reportable 08/07/18 04:00 Platelet Satelliting Not Reportable 08/07/18 04:00 Plt Morphology Comment Not Reportable 08/07/18 04:00 RBC Morphology Not Reportable 08/07/18 04:00 Dimorphic RBCs Not Reportable 08/07/18 04:00 Polychromasia Few 08/07/18 04:00 Hypochromasia Few 08/07/18 04:00 Poikilocytosis 1+ 08/07/18 04:00 Anisocytosis 1+ 08/07/18 04:00 Microcytosis Not Reportable 08/07/18 04:00 Macrocytosis Not Reportable 08/07/18 04:00 Spherocytes Not Reportable 08/07/18 04:00 Pappenheimer Bodies Not Reportable 08/07/18 04:00 Sickle Cells Not Reportable 08/07/18 04:00 Target Cells Few 08/07/18 04:00 Tear Drop Cells Not Reportable 08/07/18 04:00 Ovalocytes Not Reportable 08/07/18 04:00 Helmet Cells Not Reportable 08/07/18 04:00 [place] Bodies Not Reportable 08/07/18 04:00 [place] Rings Not Reportable 08/07/18 04:00 Betzy Cells Not Reportable 08/07/18 04:00 Bite Cells Not Reportable 08/07/18 04:00 Crenated Cell Not Reportable 08/07/18 04:00 Elliptocytes Not Reportable 08/07/18 04:00 Acanthocytes (Spur) Not Reportable 08/07/18 04:00 Rouleaux Not Reportable 08/07/18 04:00 Hemoglobin C Crystals Not Reportable 08/07/18 04:00 Schistocytes Not Reportable 08/07/18 04:00 Malaria parasites Not Reportable 08/07/18 04:00 Michi Bodies Not Reportable 08/07/18 04:00 Hem Pathologist Commnt No 08/07/18 04:00 PT 14.5 Sec. (12.2-14.9) 07/28/18 05:27 INR 1.09 (0.87-1.13) 07/28/18 05:27 APTT 23.2 Sec. (24.2-36.6) L 07/18/18 20:48 POC ABG pH 7.409 (7.35-7.45) 08/02/18 09:56 POC ABG pCO2 38.5 (35-45) 08/02/18 09:56 POC ABG pO2 70 (80-105) L 08/02/18 09:56 POC ABG HCO3 24.3 08/02/18 09:56 POC ABG Total CO2 25 08/02/18 09:56 POC ABG O2 Sat 94 08/02/18 09:56 POC ABG Base Excess 0 08/02/18 09:56 FiO2 40 % 08/02/18 09:56 Sodium 153 mmol/L (137-145) H 08/08/18 Unknown Potassium 3.9 mmol/L (3.6-5.0) 08/08/18 Unknown Chloride 115.1 mmol/L (98-107) H 08/08/18 Unknown Carbon Dioxide 26 mmol/L (22-30) 08/08/18 Unknown Anion Gap 16 mmol/L 08/08/18 Unknown BUN 74 mg/dL (7-17) H 08/08/18 Unknown Creatinine 1.4 mg/dL (0.7-1.2) H 08/08/18 Unknown Estimated GFR 43 ml/min 08/08/18 Unknown BUN/Creatinine Ratio 53 % 08/08/18 Unknown Glucose 255 mg/dL (65-100) H 08/08/18 Unknown POC Glucose 186 (70-105) H 08/08/18 10:42 Lactic Acid 1.10 mmol/L (0.7-2.0) 07/19/18 17:04 Calcium 9.2 mg/dL (8.4-10.2) 08/08/18 Unknown Phosphorus 2.40 mg/dL (2.5-4.5) L 08/08/18 Unknown Magnesium 1.70 mg/dL (1.7-2.3) 08/08/18 Unknown Iron 17 ug/dL (37-170) L 08/07/18 04:00 TIBC 122 mcg/dL (250-450) L 08/07/18 04:00 Ferritin 205.8 ng/mL (13.0-400.0) 08/07/18 04:00 Total Bilirubin 0.40 mg/dL (0.1-1.2) 08/07/18 04:00 AST 22 units/L (5-40) 08/07/18 04:00 ALT 14 units/L (7-56) 08/07/18 04:00 Alkaline Phosphatase 88 units/L (35-129) 08/07/18 04:00 Total Creatine Kinase 48 units/L (30-135) 07/18/18 20:48 CK-MB (CK-2) < 1.0 ng/mL (0.0-4.0) 07/18/18 20:48 CK-MB (CK-2) Rel Index 2.0 (0-4) 07/18/18 20:48 Troponin T 0.025 ng/mL (0.00-0.029) 07/18/18 20:48 C-Reactive Protein 4.30 mg/dL (0.00-1.30) H 07/25/18 03:58 NT-Pro-B Natriuret Pep 462.4 pg/mL (0-900) 07/18/18 20:48 Total Protein 7.4 g/dL (6.3-8.2) D 08/07/18 04:00 Albumin 2.3 g/dL (3.9-5) L 08/07/18 04:00 Albumin/Globulin Ratio 0.5 % 08/07/18 04:00 Carcinoembryonic Ag See scanned result 07/22/18 13:47 Vitamin B12 1012 pg/mL (211-911) H 08/07/18 04:00 Folate 12.21 ng/mL (7.3-26.0) 08/07/18 04:00 Urine Color Yellow (Yellow) 07/18/18 21:49 Urine Turbidity Clear (Clear) 07/18/18 21:49 Urine pH 5.0 (5.0-7.0) 07/18/18 21:49 Ur Specific [place] 1.019 (1.003-1.030) 07/18/18 21:49 Urine Protein <15 mg/dl mg/dL (Negative) 07/18/18 21:49 Urine Glucose (UA) Neg mg/dL (Negative) 07/18/18 21:49 Urine Ketones Neg mg/dL (Negative) 07/18/18 21:49 Urine Blood Neg (Negative) 07/18/18 21:49 Urine Nitrite Neg (Negative) 07/18/18 21:49 Urine Bilirubin Neg (Negative) 07/18/18 21:49 Urine Urobilinogen 4.0 mg/dL (<2.0) 07/18/18 21:49 Ur Leukocyte Esterase Neg (Negative) 07/18/18 21:49 Urine WBC (Auto) 2.0 /HPF (0.0-6.0) 07/18/18 21:49 Urine RBC (Auto) < 1.0 /HPF (0.0-6.0) 07/18/18 21:49 U Epithel Cells (Auto) 3.0 /HPF (0-13.0) 07/18/18 21:49 Urine Mucus Few /HPF 07/18/18 21:49 Blood Type B POSITIVE 08/04/18 16:04 Antibody Screen Negative 08/04/18 16:04 Crossmatch See Detail 08/01/18 07:18 Nutrition/Malnutrition Assess - Dietary Evaluation Nutrition/Malnutrition Findings: Nutrition Notes Start: 07/22/18 14:00 Freq: Status: Active Protocol: Document 08/07/18 09:53 SHYANNE (Rec: 08/07/18 10:04 SHYANNE [email or web address]) Nutrition Notes Initial or Follow up Reassessment Current Diagnosis Diabetes Sepsis Hypertension Heart Failure Other Pertinent Diagnosis Stage IV CA s/p exp lap with ( R) colectomy Current Diet CPN at 65mL/hr Labs/Tests Na 152 Cl 113.2 BUN 81 Cr 1.7 BG 203 Fe 17 TIBC 122 Pertinent Medications Reviewed Height 5 ft 5 in Weight 98.3 kg [place] Body Weight (lbs) 125.0 BMI 36.0 Weight change and time frame Current wt obtained from bed scale Subjective/Other Information Day 16 CPN. Observed CPN infusing at 65ml/hr. NGT removed. Percent of energy/protein needs met: 84% energy 100% pro Burn Absent Trauma Absent #1 Nutrition Diagnosis Altered GI function Diagnosis Progress(for reassessment Continues documentation) Is patient on ventilator? No Is Patient Ambulatory and/or Out of Bed No REE-([facility]-confined to bed) 1715.724 Kcal/Kg value to use for calculation 13 Approximate Energy Requirements Using 1278 kcal/Kg Calculation Used for Recommendations Kcal/kg Additional Notes Pro needs 1-1.2g/kg adjBW: 78- 93g/day Fluid needs 1.5L/day Nutrition Intervention Nutrition Support: Continue CPN at 65ml/hr: MVI, 0mEq K, 0mmol Phos, 3mEq Mg. Osmolality: 1230. Spoke with pharmacist to discuss adjustment of Phos since both Na and K were zeroed (phos usually added as a combination with either Na or K). Pt is receiving 8mEq Na and 8mmol of Phos intrinsically from amino acids, so although TPN order reflects no Na, or Phos being given, the patient is actually receiving some. Kcal 1,077 Protein (gm) 78 Carbohydrates (gm) 225 Fat (gm) 0 Fluid (mL) 1,560 Fiber (gm) 0 Goal #1 PN to meet 80-100% nutrient needs Follow-Up By: 08/08/18 Additional Comments Labs in am: BMP, Mg, Phos
[2018-08-08] MEDS ORDERED: ZOSYN/NS 2.25 GM/50ML 2.25 GM/50 ML BAG IV SCH (12:00)
--- NOTE | 2018-08-08 13:07 | Progress Note ---
Assessment and Plan Pt status quo. minimal po intake but iron Abd soft. incision clean and dry still electrolyte abnormalities uncontrolled HTN. discussed with ID antibiotics about to be d/c'ed will keep on cl liq diet for now and advance as iron surgically stable as per PCP, Pulm, renal & onc Selected Entries 08/08/18 08/08/18 08/08/18 07:55 09:47 10:02 Temperature 97.4 F L Pulse Rate [ 80 Anterior Bilateral Throughout] Respiratory 16 Rate [Anterior Bilateral Throughout] Blood Pressure 220/102 Laboratory Tests 08/07/18 08/08/18 04:00 Unknown WBC 9.1 Hgb 10.3 Hct 32.4 Sodium 153 H Potassium 3.9 Chloride 115.1 H BUN 74 H Creatinine 1.4 H Objective Vital Signs - 12hr 08/08/18 08/08/18 08/08/18 02:13 02:42 05:06 Temperature 97.7 F Pulse Rate 98 H 98 H Pulse Rate [ Anterior Bilateral Throughout] Respiratory 22 Rate Respiratory Rate [Anterior Bilateral Throughout] Blood Pressure 215/113 215/113 O2 Sat by Pulse 94 Oximetry 08/08/18 08/08/18 08/08/18 07:55 08:25 09:35 Temperature 97.4 F L Pulse Rate 74 74 Pulse Rate [ 89 Anterior Bilateral Throughout] Respiratory 20 Rate Respiratory 20 Rate [Anterior Bilateral Throughout] Blood Pressure 252/115 252/115 O2 Sat by Pulse 97 Oximetry 08/08/18 08/08/18 09:47 10:02 Temperature Pulse Rate Pulse Rate [ 80 Anterior Bilateral Throughout] Respiratory Rate Respiratory 16 Rate [Anterior Bilateral Throughout] Blood Pressure 220/102 O2 Sat by Pulse 96 Oximetry - Labs 08/07/18 04:00 08/08/18 Unknown Diabetes panel 08/08/18 Range/Units Unknown Sodium 153 H (137-145) mmol/L Potassium 3.9 (3.6-5.0) mmol/L Chloride 115.1 H (98-107) mmol/L Carbon Dioxide 26 (22-30) mmol/L BUN 74 H (7-17) mg/dL Creatinine 1.4 H (0.7-1.2) mg/dL Glucose 255 H (65-100) mg/dL Calcium 9.2 (8.4-10.2) mg/dL Calcium panel 08/08/18 Range/Units Unknown Calcium 9.2 (8.4-10.2) mg/dL Phosphorus 2.40 L (2.5-4.5) mg/dL Pituitary panel 08/08/18 Range/Units Unknown Sodium 153 H (137-145) mmol/L Potassium 3.9 (3.6-5.0) mmol/L Chloride 115.1 H (98-107) mmol/L Carbon Dioxide 26 (22-30) mmol/L BUN 74 H (7-17) mg/dL Creatinine 1.4 H (0.7-1.2) mg/dL Glucose 255 H (65-100) mg/dL Calcium 9.2 (8.4-10.2) mg/dL Adrenal panel 08/08/18 Range/Units Unknown Sodium 153 H (137-145) mmol/L Potassium 3.9 (3.6-5.0) mmol/L Chloride 115.1 H (98-107) mmol/L Carbon Dioxide 26 (22-30) mmol/L BUN 74 H (7-17) mg/dL Creatinine 1.4 H (0.7-1.2) mg/dL Glucose 255 H (65-100) mg/dL Calcium 9.2 (8.4-10.2) mg/dL
--- NOTE | 2018-08-08 14:14 | Progress Note ---
Assessment and Plan Imp: 1. Colon cancer 2. Perforated viscus 3. Sepsis 4. Acute respiratory failure, hypoxia 5. Bibasilar atelectasis 6. SHREYAS Rec: 1. CXR findings likely reflect atelectasis due to hypoventilation in setting of abdominal pain/distension + bed-bound status/weakness; doubt pneumonia; would focus on incentive spirometry and mobilization 2. Can continue the Duonebs 3. SCDs 4. Correct sodium per renal/primary 5. Would continue to work on improving BP control 6. We will monitor with you Plan of care reviewed with patient/family, they understand/agree Subjective Date of service: 08/08/18 Principal diagnosis: colon ca Interval history: No events. On 2L NC. Poor historian. Moans unintelligibly to questions. Awake. Active Medications Albuterol (Proventil) 2.5 mg IH Q4HRT PRN PRN Reason: Shortness Of Breath Last Admin: 07/24/18 20:31 Dose: 2.5 mg Documented by: Albuterol/Ipratropium (Duoneb *Not For Prn Use*) 1 ampul IH TIDRT [facility] Last Admin: 08/08/18 13:33 Dose: 1 ampul Documented by: Clonidine HCl (Catapres-Tts Patch) 0.3 mg TD Mo [facility] Last Admin: 08/08/18 10:02 Dose: 0.3 mg Documented by: Dextrose (D50w (25gm) Syringe) 50 ml IV PRN PRN PRN Reason: Hypoglycemia Hydralazine HCl (Apresoline) 20 mg IV Q4HR PRN PRN Reason: Hypertension Last Admin: 08/08/18 08:25 Dose: 20 mg Documented by: Amino Acids/Electrolytes/Dextrose (Tpn Adult) 1,560 mls @ 65 mls/hr IV DAILY@1999 [facility]; Protocol Stop: 08/08/18 19:59 Last Admin: 08/07/18 20:47 Dose: 65 mls/hr Documented by: Piperacillin Sod/Tazobactam Sod (Zosyn/Ns 2.25 Gm/50ml) 2.25 gm in 50 mls @ 100 mls/hr IV Q6HR [facility]; Protocol Last Admin: 08/08/18 11:16 Dose: 100 mls/hr Documented by: Dextrose (D5w) 1,000 mls @ 60 mls/hr IV DIRECT [facility] Last Admin: 08/08/18 11:16 Dose: 60 mls/hr Documented by: Fat Emulsion Intravenous (Intralipid 20%) 250 mls @ 21 mls/hr IV DAILY@1999 [facility] Stop: 08/09/18 08:00 Amino Acids/Electrolytes/Dextrose (Tpn Adult) 1,560 mls @ 65 mls/hr IV DAILY@1999 [facility]; Protocol Stop: 08/09/18 19:59 Insulin Glargine (Lantus) 20 units SUB-Q DAILY [facility] Last Admin: 08/08/18 10:02 Dose: 20 units Documented by: Insulin Human Lispro (Humalog) 0 unit SUB-Q Q4H [facility]; Protocol Last Admin: 08/08/18 11:15 Dose: 3 unit Documented by: Labetalol HCl (Normodyne) 10 mg IV Q4H PRN PRN Reason: Blood Pressure Last Admin: 08/08/18 05:06 Dose: 10 mg Documented by: Morphine Sulfate (Morphine) 2 mg IV Q3H PRN PRN Reason: Pain, Moderate (4-6) Last Admin: 08/08/18 08:26 Dose: 2 mg Documented by: Multi-Ingred Cream/Lotion/Oil/Oint (Artificial Tears Ophth Oint) 1 applic OU Q4HR PRN PRN Reason: Dry Eye(s) Pantoprazole Sodium (Protonix) 40 mg IV QDAY [facility] Last Admin: 08/08/18 08:26 Dose: 40 mg Documented by: Objective Vital Signs - 12hr 08/08/18 08/08/18 08/08/18 02:13 02:42 05:06 Temperature 97.7 F Pulse Rate 98 H 98 H Pulse Rate [ Anterior Bilateral Throughout] Respiratory 22 Rate Respiratory Rate [Anterior Bilateral Throughout] Blood Pressure 215/113 215/113 O2 Sat by Pulse 94 Oximetry 08/08/18 08/08/18 08/08/18 07:55 08:25 09:35 Temperature 97.4 F L Pulse Rate 74 74 Pulse Rate [ 89 Anterior Bilateral Throughout] Respiratory 20 Rate Respiratory 20 Rate [Anterior Bilateral Throughout] Blood Pressure 252/115 252/115 O2 Sat by Pulse 97 Oximetry 08/08/18 08/08/18 08/08/18 09:47 10:02 13:30 Temperature Pulse Rate Pulse Rate [ 80 88 Anterior Bilateral Throughout] Respiratory Rate Respiratory 16 20 Rate [Anterior Bilateral Throughout] Blood Pressure 220/102 O2 Sat by Pulse 96 Oximetry 08/08/18 13:36 Temperature Pulse Rate Pulse Rate [ 86 Anterior Bilateral Throughout] Respiratory Rate Respiratory 20 Rate [Anterior Bilateral Throughout] Blood Pressure O2 Sat by Pulse Oximetry Constitutional: no acute distress, alert Eyes: non-icteric Neck: supple Effort: normal Ascultation: Bilateral: diminished breath sounds (bases), rhonchi (few bilaterally) Cardiovascular: regular rate and rhythm (no mrg) Gastrointestinal: hypoactive bowel sounds, soft, other (distended mildly) Integumentary: normal Extremities: no cyanosis, no edema, pink and warm Neurologic: normal mental status, non-focal exam, pupils equal and round, CN II- XII normal Psychiatric: mood appropriate, affect normal CBC and BMP: 08/07/18 04:00 08/08/18 Unknown ABG, PT/INR, D-dimer: ABG POC ABG pH 7.409 (7.35-7.45) 08/02/18 09:56 POC ABG pCO2 38.5 (35-45) 08/02/18 09:56 POC ABG pO2 70 (80-105) L 08/02/18 09:56 POC ABG HCO3 24.3 08/02/18 09:56 POC ABG Total CO2 25 08/02/18 09:56 POC ABG O2 Sat 94 08/02/18 09:56 PT/INR, D-dimer PT 14.5 Sec. (12.2-14.9) 07/28/18 05:27 INR 1.09 (0.87-1.13) 07/28/18 05:27 Abnormal lab findings: Abnormal Labs 07/18/18 07/18/18 07/18/18 20:28 20:48 20:48 WBC 12.3 H RBC 3.47 L Hgb 9.1 L Hct 28.9 L MCH 26 L RDW 16.1 H Plt Count 473 H Lymph % (Auto) 5.4 L [place] % (Auto) Lymph # 0.7 L [place] # Seg Neutrophils % 86.5 H Seg Neuts % (Manual) Lymphocytes % (Manual) Monocytes % (Manual) Seg Neutrophils # 10.7 H Seg Neutrophils # Man Lymphocytes # (Manual) Monocytes # (Manual) APTT POC ABG pO2 Sodium Potassium Chloride BUN Creatinine Glucose 108 H POC Glucose 109 H Calcium Phosphorus Magnesium Iron TIBC C-Reactive Protein Total Protein Albumin 3.1 L Vitamin B12 Crossmatch 07/18/18 07/18/18 07/19/18 20:48 23:12 02:50 WBC RBC 3.35 L Hgb 9.0 L Hct 27.9 L MCH 27 L RDW 15.8 H Plt Count Lymph % (Auto) [place] % (Auto) Lymph # [place] # Seg Neutrophils % Seg Neuts % (Manual) Lymphocytes % (Manual) Monocytes % (Manual) Seg Neutrophils # Seg Neutrophils # Man Lymphocytes # (Manual) Monocytes # (Manual) APTT 23.2 L POC ABG pO2 Sodium Potassium Chloride BUN Creatinine Glucose POC Glucose 106 H Calcium Phosphorus Magnesium Iron TIBC C-Reactive Protein Total Protein Albumin Vitamin B12 Crossmatch 07/19/18 07/19/18 07/19/18 02:50 08:00 11:46 WBC RBC Hgb Hct MCH RDW Plt Count Lymph % (Auto) [place] % (Auto) Lymph # [place] # Seg Neutrophils % Seg Neuts % (Manual) Lymphocytes % (Manual) Monocytes % (Manual) Seg Neutrophils # Seg Neutrophils # Man Lymphocytes # (Manual) Monocytes # (Manual) APTT POC ABG pO2 Sodium 136 L Potassium Chloride BUN Creatinine Glucose 105 H POC Glucose 131 H 152 H Calcium Phosphorus Magnesium Iron TIBC C-Reactive Protein Total Protein Albumin Vitamin B12 Crossmatch 07/19/18 07/19/18 07/19/18 13:46 15:34 20:42 WBC RBC Hgb Hct MCH RDW Plt Count Lymph % (Auto) [place] % (Auto) Lymph # [place] # Seg Neutrophils % Seg Neuts % (Manual) Lymphocytes % (Manual) Monocytes % (Manual) Seg Neutrophils # Seg Neutrophils # Man Lymphocytes # (Manual) Monocytes # (Manual) APTT POC ABG pO2 Sodium Potassium Chloride BUN Creatinine Glucose POC Glucose 152 H 182 H 187 H Calcium Phosphorus Magnesium Iron TIBC C-Reactive Protein Total Protein Albumin Vitamin B12 Crossmatch 07/19/18 07/20/18 07/20/18 23:05 02:15 06:14 WBC RBC Hgb Hct MCH RDW Plt Count Lymph % (Auto) [place] % (Auto) Lymph # [place] # Seg Neutrophils % Seg Neuts % (Manual) Lymphocytes % (Manual) Monocytes % (Manual) Seg Neutrophils # Seg Neutrophils # Man Lymphocytes # (Manual) Monocytes # (Manual) APTT POC ABG pO2 Sodium Potassium Chloride BUN Creatinine Glucose POC Glucose 133 H 154 H 137 H Calcium Phosphorus Magnesium Iron TIBC C-Reactive Protein Total Protein Albumin Vitamin B12 Crossmatch 07/20/18 07/20/18 07/20/18 06:47 06:47 12:01 WBC 11.7 H RBC 3.51 L Hgb 9.2 L Hct 29.3 L MCH 26 L RDW 15.9 H Plt Count Lymph % (Auto) 12.0 L [place] % (Auto) Lymph # [place] # Seg Neutrophils % 80.8 H Seg Neuts % (Manual) Lymphocytes % (Manual) Monocytes % (Manual) Seg Neutrophils # 9.4 H Seg Neutrophils # Man Lymphocytes # (Manual) Monocytes # (Manual) APTT POC ABG pO2 Sodium Potassium Chloride BUN Creatinine Glucose 126 H POC Glucose 157 H Calcium 8.3 L Phosphorus Magnesium Iron TIBC C-Reactive Protein Total Protein Albumin 2.8 L Vitamin B12 Crossmatch 07/20/18 07/20/18 07/20/18 16:11 19:56 23:34 WBC RBC Hgb Hct MCH RDW Plt Count Lymph % (Auto) [place] % (Auto) Lymph # [place] # Seg Neutrophils % Seg Neuts % (Manual) Lymphocytes % (Manual) Monocytes % (Manual) Seg Neutrophils # Seg Neutrophils # Man Lymphocytes # (Manual) Monocytes # (Manual) APTT POC ABG pO2 Sodium Potassium Chloride BUN Creatinine Glucose POC Glucose 155 H 158 H 149 H Calcium Phosphorus Magnesium Iron TIBC C-Reactive Protein Total Protein Albumin Vitamin B12 Crossmatch 07/21/18 07/21/18 07/21/18 04:16 08:11 11:15 WBC RBC Hgb Hct MCH RDW Plt Count Lymph % (Auto) [place] % (Auto) Lymph # [place] # Seg Neutrophils % Seg Neuts % (Manual) Lymphocytes % (Manual) Monocytes % (Manual) Seg Neutrophils # Seg Neutrophils # Man Lymphocytes # (Manual) Monocytes # (Manual) APTT POC ABG pO2 Sodium Potassium Chloride BUN Creatinine Glucose POC Glucose 127 H 142 H 159 H Calcium Phosphorus Magnesium Iron TIBC C-Reactive Protein Total Protein Albumin Vitamin B12 Crossmatch 07/21/18 07/21/18 07/21/18 16:12 18:49 23:03 WBC RBC Hgb Hct MCH RDW Plt Count Lymph % (Auto) [place] % (Auto) Lymph # [place] # Seg Neutrophils % Seg Neuts % (Manual) Lymphocytes % (Manual) Monocytes % (Manual) Seg Neutrophils # Seg Neutrophils # Man Lymphocytes # (Manual) Monocytes # (Manual) APTT POC ABG pO2 Sodium Potassium Chloride BUN Creatinine Glucose POC Glucose 134 H 113 H 120 H Calcium Phosphorus Magnesium Iron TIBC C-Reactive Protein Total Protein Albumin Vitamin B12 Crossmatch 07/22/18 07/22/18 07/22/18 05:24 08:09 11:42 WBC RBC Hgb Hct MCH RDW Plt Count Lymph % (Auto) [place] % (Auto) Lymph # [place] # Seg Neutrophils % Seg Neuts % (Manual) Lymphocytes % (Manual) Monocytes % (Manual) Seg Neutrophils # Seg Neutrophils # Man Lymphocytes # (Manual) Monocytes # (Manual) APTT POC ABG pO2 Sodium Potassium Chloride BUN Creatinine Glucose POC Glucose 126 H 112 H 143 H Calcium Phosphorus Magnesium Iron TIBC C-Reactive Protein Total Protein Albumin Vitamin B12 Crossmatch 07/22/18 07/22/18 07/22/18 13:47 16:26 22:48 WBC RBC 3.16 L Hgb 8.3 L Hct 26.5 L MCH 26 L RDW 16.6 H Plt Count Lymph % (Auto) 12.0 L [place] % (Auto) Lymph # 1.1 L [place] # Seg Neutrophils % 79.9 H Seg Neuts % (Manual) Lymphocytes % (Manual) Monocytes % (Manual) Seg Neutrophils # Seg Neutrophils # Man Lymphocytes # (Manual) Monocytes # (Manual) APTT POC ABG pO2 Sodium Potassium Chloride BUN Creatinine Glucose POC Glucose 132 H 118 H Calcium Phosphorus Magnesium Iron TIBC C-Reactive Protein Total Protein Albumin Vitamin B12 Crossmatch 07/23/18 07/23/18 07/23/18 05:01 05:39 05:39 WBC RBC 3.04 L Hgb 8.3 L Hct 25.6 L MCH 27 L RDW 16.7 H Plt Count Lymph % (Auto) 13.1 L [place] % (Auto) 8.1 H Lymph # 1.0 L [place] # Seg Neutrophils % 77.0 H Seg Neuts % (Manual) Lymphocytes % (Manual) Monocytes % (Manual) Seg Neutrophils # Seg Neutrophils # Man Lymphocytes # (Manual) Monocytes # (Manual) APTT POC ABG pO2 Sodium Potassium Chloride BUN 22 H Creatinine Glucose 224 H POC Glucose 197 H Calcium 8.3 L Phosphorus 1.90 L Magnesium 1.60 L Iron TIBC C-Reactive Protein Total Protein Albumin 2.8 L Vitamin B12 Crossmatch 07/23/18 07/23/18 07/23/18 07:37 12:10 15:41 WBC RBC Hgb Hct MCH RDW Plt Count Lymph % (Auto) [place] % (Auto) Lymph # [place] # Seg Neutrophils % Seg Neuts % (Manual) Lymphocytes % (Manual) Monocytes % (Manual) Seg Neutrophils # Seg Neutrophils # Man Lymphocytes # (Manual) Monocytes # (Manual) APTT POC ABG pO2 Sodium Potassium Chloride BUN Creatinine Glucose POC Glucose 192 H 191 H 187 H Calcium Phosphorus Magnesium Iron TIBC C-Reactive Protein Total Protein Albumin Vitamin B12 Crossmatch 07/23/18 07/24/18 07/24/18 23:12 03:12 04:34 WBC RBC Hgb Hct MCH RDW Plt Count Lymph % (Auto) [place] % (Auto) Lymph # [place] # Seg Neutrophils % Seg Neuts % (Manual) Lymphocytes % (Manual) Monocytes % (Manual) Seg Neutrophils # Seg Neutrophils # Man Lymphocytes # (Manual) Monocytes # (Manual) APTT POC ABG pO2 Sodium Potassium Chloride BUN 25 H Creatinine Glucose 191 H POC Glucose 231 H 224 H Calcium 8.3 L Phosphorus 1.60 L Magnesium 1.60 L Iron TIBC C-Reactive Protein Total Protein Albumin Vitamin B12 Crossmatch 07/24/18 07/24/18 07/24/18 08:21 12:12 16:55 WBC RBC Hgb Hct MCH RDW Plt Count Lymph % (Auto) [place] % (Auto) Lymph # [place] # Seg Neutrophils % Seg Neuts % (Manual) Lymphocytes % (Manual) Monocytes % (Manual) Seg Neutrophils # Seg Neutrophils # Man Lymphocytes # (Manual) Monocytes # (Manual) APTT POC ABG pO2 Sodium Potassium Chloride BUN Creatinine Glucose POC Glucose 187 H 167 H 192 H Calcium Phosphorus Magnesium Iron TIBC C-Reactive Protein Total Protein Albumin Vitamin B12 Crossmatch 07/24/18 07/24/18 07/25/18 20:30 23:38 02:44 WBC RBC Hgb Hct MCH RDW Plt Count Lymph % (Auto) [place] % (Auto) Lymph # [place] # Seg Neutrophils % Seg Neuts % (Manual) Lymphocytes % (Manual) Monocytes % (Manual) Seg Neutrophils # Seg Neutrophils # Man Lymphocytes # (Manual) Monocytes # (Manual) APTT POC ABG pO2 Sodium Potassium Chloride BUN Creatinine Glucose POC Glucose 192 H 181 H 196 H Calcium Phosphorus Magnesium Iron TIBC C-Reactive Protein Total Protein Albumin Vitamin B12 Crossmatch 07/25/18 07/25/18 07/25/18 03:58 03:58 06:35 WBC RBC Hgb Hct MCH RDW Plt Count Lymph % (Auto) [place] % (Auto) Lymph # [place] # Seg Neutrophils % Seg Neuts % (Manual) Lymphocytes % (Manual) Monocytes % (Manual) Seg Neutrophils # Seg Neutrophils # Man Lymphocytes # (Manual) Monocytes # (Manual) APTT POC ABG pO2 Sodium Potassium Chloride BUN 23 H Creatinine Glucose 197 H POC Glucose 203 H Calcium Phosphorus 2.30 L D Magnesium Iron TIBC C-Reactive Protein 4.30 H Total Protein Albumin Vitamin B12 Crossmatch 07/25/18 07/25/18 07/25/18 12:04 16:33 19:50 WBC RBC Hgb Hct MCH RDW Plt Count Lymph % (Auto) [place] % (Auto) Lymph # [place] # Seg Neutrophils % Seg Neuts % (Manual) Lymphocytes % (Manual) Monocytes % (Manual) Seg Neutrophils # Seg Neutrophils # Man Lymphocytes # (Manual) Monocytes # (Manual) APTT POC ABG pO2 Sodium Potassium Chloride BUN Creatinine Glucose POC Glucose 153 H 204 H 213 H Calcium Phosphorus Magnesium Iron TIBC C-Reactive Protein Total Protein Albumin Vitamin B12 Crossmatch 07/25/18 07/26/18 07/26/18 22:52 02:38 04:13 WBC RBC Hgb Hct MCH RDW Plt Count Lymph % (Auto) [place] % (Auto) Lymph # [place] # Seg Neutrophils % Seg Neuts % (Manual) Lymphocytes % (Manual) Monocytes % (Manual) Seg Neutrophils # Seg Neutrophils # Man Lymphocytes # (Manual) Monocytes # (Manual) APTT POC ABG pO2 Sodium Potassium Chloride BUN 22 H Creatinine Glucose 180 H POC Glucose 182 H 169 H Calcium 8.3 L Phosphorus Magnesium Iron TIBC C-Reactive Protein Total Protein Albumin Vitamin B12 Crossmatch 07/26/18 07/26/18 07/27/18 06:37 22:45 02:44 WBC RBC Hgb Hct MCH RDW Plt Count Lymph % (Auto) [place] % (Auto) Lymph # [place] # Seg Neutrophils % Seg Neuts % (Manual) Lymphocytes % (Manual) Monocytes % (Manual) Seg Neutrophils # Seg Neutrophils # Man Lymphocytes # (Manual) Monocytes # (Manual) APTT POC ABG pO2 Sodium Potassium Chloride BUN 24 H Creatinine Glucose 195 H POC Glucose 156 H 237 H Calcium Phosphorus Magnesium Iron TIBC C-Reactive Protein Total Protein Albumin Vitamin B12 Crossmatch 07/27/18 07/27/18 07/27/18 02:51 06:27 10:45 WBC RBC Hgb Hct MCH RDW Plt Count Lymph % (Auto) [place] % (Auto) Lymph # [place] # Seg Neutrophils % Seg Neuts % (Manual) Lymphocytes % (Manual) Monocytes % (Manual) Seg Neutrophils # Seg Neutrophils # Man Lymphocytes # (Manual) Monocytes # (Manual) APTT POC ABG pO2 Sodium Potassium Chloride BUN Creatinine Glucose POC Glucose 166 H 212 H 177 H Calcium Phosphorus Magnesium Iron TIBC C-Reactive Protein Total Protein Albumin Vitamin B12 Crossmatch 07/27/18 07/28/18 07/28/18 16:14 00:12 05:06 WBC RBC Hgb Hct MCH RDW Plt Count Lymph % (Auto) [place] % (Auto) Lymph # [place] # Seg Neutrophils % Seg Neuts % (Manual) Lymphocytes % (Manual) Monocytes % (Manual) Seg Neutrophils # Seg Neutrophils # Man Lymphocytes # (Manual) Monocytes # (Manual) APTT POC ABG pO2 Sodium Potassium Chloride BUN Creatinine Glucose POC Glucose 225 H 220 H 214 H Calcium Phosphorus Magnesium Iron TIBC C-Reactive Protein Total Protein Albumin Vitamin B12 Crossmatch 07/28/18 07/28/18 07/28/18 05:27 08:09 11:05 WBC RBC Hgb Hct MCH RDW Plt Count Lymph % (Auto) [place] % (Auto) Lymph # [place] # Seg Neutrophils % Seg Neuts % (Manual) Lymphocytes % (Manual) Monocytes % (Manual) Seg Neutrophils # Seg Neutrophils # Man Lymphocytes # (Manual) Monocytes # (Manual) APTT POC ABG pO2 Sodium Potassium Chloride BUN 25 H Creatinine 0.6 L Glucose 213 H POC Glucose 228 H 258 H Calcium Phosphorus Magnesium Iron TIBC C-Reactive Protein Total Protein Albumin Vitamin B12 Crossmatch 07/28/18 07/28/18 07/28/18 12:19 17:40 17:40 WBC RBC 2.87 L Hgb 7.7 L Hct 24.9 L MCH 27 L RDW 18.0 H Plt Count Lymph % (Auto) [place] % (Auto) Lymph # [place] # Seg Neutrophils % Seg Neuts % (Manual) Lymphocytes % (Manual) Monocytes % (Manual) Seg Neutrophils # Seg Neutrophils # Man Lymphocytes # (Manual) Monocytes # (Manual) APTT POC ABG pO2 Sodium Potassium Chloride BUN Creatinine Glucose POC Glucose 209 H Calcium Phosphorus Magnesium Iron TIBC C-Reactive Protein Total Protein Albumin Vitamin B12 Crossmatch See Detail 07/28/18 07/28/18 07/29/18 20:00 23:48 02:29 WBC RBC Hgb Hct MCH RDW Plt Count Lymph % (Auto) [place] % (Auto) Lymph # [place] # Seg Neutrophils % Seg Neuts % (Manual) Lymphocytes % (Manual) Monocytes % (Manual) Seg Neutrophils # Seg Neutrophils # Man Lymphocytes # (Manual) Monocytes # (Manual) APTT POC ABG pO2 Sodium Potassium Chloride BUN Creatinine Glucose POC Glucose 192 H 211 H 217 H Calcium Phosphorus Magnesium Iron TIBC C-Reactive Protein Total Protein Albumin Vitamin B12 Crossmatch 07/29/18 07/29/18 07/29/18 05:26 05:26 11:33 WBC RBC 3.20 L Hgb 8.5 L Hct 26.8 L MCH 27 L RDW 17.5 H Plt Count Lymph % (Auto) [place] % (Auto) 10.8 H Lymph # [place] # 1.2 H Seg Neutrophils % 70.8 H Seg Neuts % (Manual) Lymphocytes % (Manual) Monocytes % (Manual) Seg Neutrophils # Seg Neutrophils # Man Lymphocytes # (Manual) Monocytes # (Manual) APTT POC ABG pO2 Sodium Potassium 5.3 H Chloride BUN 25 H Creatinine 0.6 L Glucose 227 H POC Glucose 202 H Calcium Phosphorus Magnesium Iron TIBC C-Reactive Protein Total Protein Albumin Vitamin B12 Crossmatch 07/29/18 07/29/18 07/30/18 18:35 23:01 04:27 WBC RBC Hgb Hct MCH RDW Plt Count Lymph % (Auto) [place] % (Auto) Lymph # [place] # Seg Neutrophils % Seg Neuts % (Manual) Lymphocytes % (Manual) Monocytes % (Manual) Seg Neutrophils # Seg Neutrophils # Man Lymphocytes # (Manual) Monocytes # (Manual) APTT POC ABG pO2 Sodium Potassium Chloride BUN Creatinine Glucose POC Glucose 194 H 218 H 176 H Calcium Phosphorus Magnesium Iron TIBC C-Reactive Protein Total Protein Albumin Vitamin B12 Crossmatch 07/30/18 07/30/18 07/30/18 10:12 11:00 11:00 WBC RBC Hgb Hct MCH RDW 17.9 H Plt Count Lymph % (Auto) 12.3 L [place] % (Auto) 10.2 H Lymph # [place] # 1.0 H Seg Neutrophils % 75.4 H Seg Neuts % (Manual) Lymphocytes % (Manual) Monocytes % (Manual) Seg Neutrophils # Seg Neutrophils # Man Lymphocytes # (Manual) Monocytes # (Manual) APTT POC ABG pO2 Sodium Potassium Chloride BUN 22 H Creatinine Glucose 269 H POC Glucose 265 H Calcium Phosphorus Magnesium Iron TIBC C-Reactive Protein Total Protein Albumin Vitamin B12 Crossmatch 07/30/18 07/30/18 07/30/18 15:11 17:21 21:47 WBC RBC Hgb Hct MCH RDW Plt Count Lymph % (Auto) [place] % (Auto) Lymph # [place] # Seg Neutrophils % Seg Neuts % (Manual) Lymphocytes % (Manual) Monocytes % (Manual) Seg Neutrophils # Seg Neutrophils # Man Lymphocytes # (Manual) Monocytes # (Manual) APTT POC ABG pO2 Sodium Potassium Chloride BUN Creatinine Glucose POC Glucose 208 H 177 H 146 H Calcium Phosphorus Magnesium Iron TIBC C-Reactive Protein Total Protein Albumin Vitamin B12 Crossmatch 07/31/18 07/31/18 07/31/18 02:13 03:56 10:15 WBC RBC Hgb Hct MCH RDW Plt Count Lymph % (Auto) [place] % (Auto) Lymph # [place] # Seg Neutrophils % Seg Neuts % (Manual) Lymphocytes % (Manual) Monocytes % (Manual) Seg Neutrophils # Seg Neutrophils # Man Lymphocytes # (Manual) Monocytes # (Manual) APTT POC ABG pO2 Sodium Potassium Chloride BUN 26 H Creatinine 0.6 L Glucose 201 H POC Glucose 208 H 216 H Calcium Phosphorus Magnesium Iron TIBC C-Reactive Protein Total Protein Albumin Vitamin B12 Crossmatch 07/31/18 07/31/18 08/01/18 15:42 22:34 03:09 WBC RBC Hgb Hct MCH RDW Plt Count Lymph % (Auto) [place] % (Auto) Lymph # [place] # Seg Neutrophils % Seg Neuts % (Manual) Lymphocytes % (Manual) Monocytes % (Manual) Seg Neutrophils # Seg Neutrophils # Man Lymphocytes # (Manual) Monocytes # (Manual) APTT POC ABG pO2 Sodium Potassium Chloride BUN Creatinine Glucose POC Glucose 205 H 236 H 253 H Calcium Phosphorus Magnesium Iron TIBC C-Reactive Protein Total Protein Albumin Vitamin B12 Crossmatch 08/01/18 08/01/18 08/01/18 04:19 06:14 07:18 WBC RBC Hgb Hct MCH RDW Plt Count Lymph % (Auto) [place] % (Auto) Lymph # [place] # Seg Neutrophils % Seg Neuts % (Manual) Lymphocytes % (Manual) Monocytes % (Manual) Seg Neutrophils # Seg Neutrophils # Man Lymphocytes # (Manual) Monocytes # (Manual) APTT POC ABG pO2 Sodium Potassium 3.3 L Chloride BUN 26 H Creatinine 0.5 L Glucose 238 H POC Glucose 257 H Calcium 7.1 L D Phosphorus Magnesium Iron TIBC C-Reactive Protein Total Protein Albumin Vitamin B12 Crossmatch See Detail 08/01/18 08/01/18 08/01/18 11:41 12:13 16:28 WBC RBC Hgb Hct MCH RDW Plt Count Lymph % (Auto) [place] % (Auto) Lymph # [place] # Seg Neutrophils % Seg Neuts % (Manual) Lymphocytes % (Manual) Monocytes % (Manual) Seg Neutrophils # Seg Neutrophils # Man Lymphocytes # (Manual) Monocytes # (Manual) APTT POC ABG pO2 339 H Sodium Potassium Chloride BUN Creatinine Glucose POC Glucose 184 H 305 H Calcium Phosphorus Magnesium Iron TIBC C-Reactive Protein Total Protein Albumin Vitamin B12 Crossmatch 08/01/18 08/01/18 08/02/18 18:25 21:09 02:01 WBC RBC Hgb Hct MCH RDW Plt Count Lymph % (Auto) [place] % (Auto) Lymph # [place] # Seg Neutrophils % Seg Neuts % (Manual) Lymphocytes % (Manual) Monocytes % (Manual) Seg Neutrophils # Seg Neutrophils # Man Lymphocytes # (Manual) Monocytes # (Manual) APTT POC ABG pO2 Sodium Potassium Chloride BUN Creatinine Glucose POC Glucose 338 H 328 H 350 H Calcium Phosphorus Magnesium Iron TIBC C-Reactive Protein Total Protein Albumin Vitamin B12 Crossmatch 08/02/18 08/02/18 08/02/18 04:26 04:26 05:47 WBC 20.9 H RBC Hgb Hct MCH RDW 20.1 H Plt Count Lymph % (Auto) [place] % (Auto) Lymph # [place] # Seg Neutrophils % Seg Neuts % (Manual) 90.0 H Lymphocytes % (Manual) 7.0 L Monocytes % (Manual) Seg Neutrophils # Seg Neutrophils # Man 18.8 H Lymphocytes # (Manual) Monocytes # (Manual) APTT POC ABG pO2 Sodium 133 L Potassium Chloride 97.5 L BUN 48 H Creatinine Glucose 347 H POC Glucose 351 H Calcium 7.8 L Phosphorus Magnesium Iron TIBC C-Reactive Protein Total Protein 5.4 L Albumin 2.2 L Vitamin B12 Crossmatch 08/02/18 08/02/18 08/02/18 05:52 09:56 10:02 WBC RBC Hgb Hct MCH RDW Plt Count Lymph % (Auto) [place] % (Auto) Lymph # [place] # Seg Neutrophils % Seg Neuts % (Manual) Lymphocytes % (Manual) Monocytes % (Manual) Seg Neutrophils # Seg Neutrophils # Man Lymphocytes # (Manual) Monocytes # (Manual) APTT POC ABG pO2 74 L 70 L Sodium Potassium Chloride BUN Creatinine Glucose POC Glucose 351 H Calcium Phosphorus Magnesium Iron TIBC C-Reactive Protein Total Protein Albumin Vitamin B12 Crossmatch 08/02/18 08/02/18 08/03/18 16:34 22:28 03:13 WBC RBC Hgb Hct MCH RDW Plt Count Lymph % (Auto) [place] % (Auto) Lymph # [place] # Seg Neutrophils % Seg Neuts % (Manual) Lymphocytes % (Manual) Monocytes % (Manual) Seg Neutrophils # Seg Neutrophils # Man Lymphocytes # (Manual) Monocytes # (Manual) APTT POC ABG pO2 Sodium Potassium Chloride BUN Creatinine Glucose POC Glucose 250 H 175 H 189 H Calcium Phosphorus Magnesium Iron TIBC C-Reactive Protein Total Protein Albumin Vitamin B12 Crossmatch 08/03/18 08/03/18 08/03/18 04:42 04:42 04:42 WBC 16.5 H RBC 3.43 L Hgb 9.6 L Hct MCH RDW 20.2 H Plt Count Lymph % (Auto) 7.9 L [place] % (Auto) 10.8 H Lymph # [place] # 1.8 H Seg Neutrophils % 80.5 H Seg Neuts % (Manual) Lymphocytes % (Manual) Monocytes % (Manual) Seg Neutrophils # 13.3 H Seg Neutrophils # Man Lymphocytes # (Manual) Monocytes # (Manual) APTT POC ABG pO2 Sodium Potassium Chloride BUN 69 H Creatinine 2.0 H D Glucose 163 H POC Glucose Calcium 7.9 L Phosphorus 6.80 H D Magnesium 2.40 H Iron TIBC C-Reactive Protein Total Protein 5.5 L Albumin 2.5 L Vitamin B12 Crossmatch 08/03/18 08/03/18 08/03/18 06:21 08:34 10:16 WBC RBC Hgb Hct MCH RDW Plt Count Lymph % (Auto) [place] % (Auto) Lymph # [place] # Seg Neutrophils % Seg Neuts % (Manual) Lymphocytes % (Manual) Monocytes % (Manual) Seg Neutrophils # Seg Neutrophils # Man Lymphocytes # (Manual) Monocytes # (Manual) APTT POC ABG pO2 Sodium Potassium Chloride BUN Creatinine Glucose POC Glucose 163 H 129 H 134 H Calcium Phosphorus Magnesium Iron TIBC C-Reactive Protein Total Protein Albumin Vitamin B12 Crossmatch 08/03/18 08/03/18 08/04/18 14:18 21:44 00:19 WBC RBC Hgb Hct MCH RDW Plt Count Lymph % (Auto) [place] % (Auto) Lymph # [place] # Seg Neutrophils % Seg Neuts % (Manual) Lymphocytes % (Manual) Monocytes % (Manual) Seg Neutrophils # Seg Neutrophils # Man Lymphocytes # (Manual) Monocytes # (Manual) APTT POC ABG pO2 Sodium Potassium Chloride BUN Creatinine Glucose POC Glucose 199 H 189 H 162 H Calcium Phosphorus Magnesium Iron TIBC C-Reactive Protein Total Protein Albumin Vitamin B12 Crossmatch 08/04/18 08/04/18 08/04/18 04:07 04:15 04:15 WBC 11.1 H RBC 2.93 L Hgb 8.5 L Hct 25.7 L MCH RDW 20.5 H Plt Count Lymph % (Auto) 7.7 L [place] % (Auto) 10.3 H Lymph # 0.9 L [place] # 1.1 H Seg Neutrophils % 80.6 H Seg Neuts % (Manual) Lymphocytes % (Manual) Monocytes % (Manual) Seg Neutrophils # 8.9 H Seg Neutrophils # Man Lymphocytes # (Manual) Monocytes # (Manual) APTT POC ABG pO2 Sodium Potassium Chloride BUN 89 H Creatinine 2.3 H Glucose 196 H POC Glucose 211 H Calcium 7.7 L Phosphorus 6.60 H Magnesium 2.50 H Iron TIBC C-Reactive Protein Total Protein Albumin Vitamin B12 Crossmatch 08/04/18 08/04/18 08/04/18 07:56 10:17 14:06 WBC RBC Hgb Hct MCH RDW Plt Count Lymph % (Auto) [place] % (Auto) Lymph # [place] # Seg Neutrophils % Seg Neuts % (Manual) Lymphocytes % (Manual) Monocytes % (Manual) Seg Neutrophils # Seg Neutrophils # Man Lymphocytes # (Manual) Monocytes # (Manual) APTT POC ABG pO2 Sodium Potassium Chloride BUN Creatinine Glucose POC Glucose 229 H 221 H 182 H Calcium Phosphorus Magnesium Iron TIBC C-Reactive Protein Total Protein Albumin Vitamin B12 Crossmatch 08/04/18 08/05/18 08/05/18 20:10 01:26 05:23 WBC RBC Hgb Hct MCH RDW Plt Count Lymph % (Auto) [place] % (Auto) Lymph # [place] # Seg Neutrophils % Seg Neuts % (Manual) Lymphocytes % (Manual) Monocytes % (Manual) Seg Neutrophils # Seg Neutrophils # Man Lymphocytes # (Manual) Monocytes # (Manual) APTT POC ABG pO2 Sodium 147 H Potassium Chloride 111.9 H BUN 94 H Creatinine 2.1 H Glucose 158 H POC Glucose 201 H 170 H Calcium 7.8 L Phosphorus Magnesium 2.40 H Iron TIBC C-Reactive Protein Total Protein Albumin Vitamin B12 Crossmatch 08/05/18 08/05/18 08/05/18 05:23 05:42 08:21 WBC RBC 2.96 L Hgb 8.5 L Hct 26.0 L MCH RDW 19.9 H Plt Count Lymph % (Auto) [place] % (Auto) Lymph # [place] # Seg Neutrophils % Seg Neuts % (Manual) 78.0 H Lymphocytes % (Manual) 11.0 L Monocytes % (Manual) 10.0 H Seg Neutrophils # Seg Neutrophils # Man Lymphocytes # (Manual) 1.0 L Monocytes # (Manual) 0.9 H APTT POC ABG pO2 Sodium Potassium Chloride BUN Creatinine Glucose POC Glucose 166 H 178 H Calcium Phosphorus Magnesium Iron TIBC C-Reactive Protein Total Protein Albumin Vitamin B12 Crossmatch 08/05/18 08/05/18 08/05/18 11:11 15:53 20:15 WBC RBC Hgb Hct MCH RDW Plt Count Lymph % (Auto) [place] % (Auto) Lymph # [place] # Seg Neutrophils % Seg Neuts % (Manual) Lymphocytes % (Manual) Monocytes % (Manual) Seg Neutrophils # Seg Neutrophils # Man Lymphocytes # (Manual) Monocytes # (Manual) APTT POC ABG pO2 Sodium Potassium Chloride BUN Creatinine Glucose POC Glucose 200 H 157 H 194 H Calcium Phosphorus Magnesium Iron TIBC C-Reactive Protein Total Protein Albumin Vitamin B12 Crossmatch 08/05/18 08/06/18 08/06/18 22:32 04:37 04:41 WBC RBC Hgb Hct MCH RDW Plt Count Lymph % (Auto) [place] % (Auto) Lymph # [place] # Seg Neutrophils % Seg Neuts % (Manual) Lymphocytes % (Manual) Monocytes % (Manual) Seg Neutrophils # Seg Neutrophils # Man Lymphocytes # (Manual) Monocytes # (Manual) APTT POC ABG pO2 Sodium 150 H Potassium Chloride 114.5 H BUN 89 H Creatinine 1.9 H Glucose 196 H POC Glucose 209 H 207 H Calcium 8.3 L Phosphorus Magnesium Iron TIBC C-Reactive Protein Total Protein Albumin Vitamin B12 Crossmatch 08/06/18 08/06/18 08/06/18 04:41 07:42 11:59 WBC RBC 3.09 L Hgb 8.7 L Hct 26.9 L MCH RDW 19.7 H Plt Count Lymph % (Auto) [place] % (Auto) Lymph # [place] # Seg Neutrophils % Seg Neuts % (Manual) 81.0 H Lymphocytes % (Manual) 12.0 L Monocytes % (Manual) Seg Neutrophils # Seg Neutrophils # Man Lymphocytes # (Manual) 0.9 L Monocytes # (Manual) APTT POC ABG pO2 Sodium Potassium Chloride BUN Creatinine Glucose POC Glucose 178 H 195 H Calcium Phosphorus Magnesium Iron TIBC C-Reactive Protein Total Protein Albumin Vitamin B12 Crossmatch 08/06/18 08/06/18 08/07/18 14:30 21:41 02:30 WBC RBC Hgb Hct MCH RDW Plt Count Lymph % (Auto) [place] % (Auto) Lymph # [place] # Seg Neutrophils % Seg Neuts % (Manual) Lymphocytes % (Manual) Monocytes % (Manual) Seg Neutrophils # Seg Neutrophils # Man Lymphocytes # (Manual) Monocytes # (Manual) APTT POC ABG pO2 Sodium Potassium Chloride BUN Creatinine Glucose POC Glucose 184 H 181 H 202 H Calcium Phosphorus Magnesium Iron TIBC C-Reactive Protein Total Protein Albumin Vitamin B12 Crossmatch 08/07/18 08/07/18 08/07/18 04:00 04:00 04:00 WBC RBC Hgb Hct MCH RDW 20.0 H Plt Count Lymph % (Auto) [place] % (Auto) Lymph # [place] # Seg Neutrophils % Seg Neuts % (Manual) 78.0 H Lymphocytes % (Manual) 10.0 L Monocytes % (Manual) Seg Neutrophils # Seg Neutrophils # Man Lymphocytes # (Manual) 0.9 L Monocytes # (Manual) APTT POC ABG pO2 Sodium 152 H Potassium Chloride 113.2 H BUN 81 H Creatinine 1.7 H Glucose 203 H POC Glucose Calcium Phosphorus Magnesium Iron 17 L TIBC 122 L C-Reactive Protein Total Protein Albumin 2.3 L Vitamin B12 1012 H Crossmatch 08/07/18 08/07/18 08/07/18 06:29 07:19 11:00 WBC RBC Hgb Hct MCH RDW Plt Count Lymph % (Auto) [place] % (Auto) Lymph # [place] # Seg Neutrophils % Seg Neuts % (Manual) Lymphocytes % (Manual) Monocytes % (Manual) Seg Neutrophils # Seg Neutrophils # Man Lymphocytes # (Manual) Monocytes # (Manual) APTT POC ABG pO2 Sodium Potassium Chloride BUN Creatinine Glucose POC Glucose 226 H 240 H 174 H Calcium Phosphorus Magnesium Iron TIBC C-Reactive Protein Total Protein Albumin Vitamin B12 Crossmatch 08/07/18 08/07/18 08/08/18 15:43 18:09 02:13 WBC RBC Hgb Hct MCH RDW Plt Count Lymph % (Auto) [place] % (Auto) Lymph # [place] # Seg Neutrophils % Seg Neuts % (Manual) Lymphocytes % (Manual) Monocytes % (Manual) Seg Neutrophils # Seg Neutrophils # Man Lymphocytes # (Manual) Monocytes # (Manual) APTT POC ABG pO2 Sodium Potassium Chloride BUN Creatinine Glucose POC Glucose 201 H 210 H 229 H Calcium Phosphorus Magnesium Iron TIBC C-Reactive Protein Total Protein Albumin Vitamin B12 Crossmatch 08/08/18 08/08/18 08/08/18 08:00 10:42 Unknown WBC RBC Hgb Hct MCH RDW Plt Count Lymph % (Auto) [place] % (Auto) Lymph # [place] # Seg Neutrophils % Seg Neuts % (Manual) Lymphocytes % (Manual) Monocytes % (Manual) Seg Neutrophils # Seg Neutrophils # Man Lymphocytes # (Manual) Monocytes # (Manual) APTT POC ABG pO2 Sodium 153 H Potassium Chloride 115.1 H BUN 74 H Creatinine 1.4 H Glucose 255 H POC Glucose 254 H 186 H Calcium Phosphorus 2.40 L Magnesium Iron TIBC C-Reactive Protein Total Protein Albumin Vitamin B12 Crossmatch Chest x-ray: report reviewed, image reviewed (bibasilar atelectasis)
[2018-08-08] MEDS ORDERED: TPN ADULT 1,560 ML IV SCH (20:00)
[2018-08-08] MEDS ORDERED: INTRALIPID 20% 250 ML IV SCH (20:00)
[2018-08-09] MEDS: HumaLOG SUB-Q SCH ×6 (02:36→23:14)
[2018-08-09] MEDS: D5W 1,000 ML IV SCH ×2 (04:37→20:18)
[2018-08-09 06:11] LABS: Hemoglobin 9.6 gm/dl (10.1-14.3); Mean Corpuscular HGB Conc 33 % (30-34); Mean Corpuscular Volume 88 fl (79-97); Platelet Count 216 K/mm3 (140-440); Red Blood Count 3.31 M/mm3 (3.65-5.03); Red Cell Distribution Width 19.6 % (13.2-15.2)
[2018-08-09 06:52] LABS: Albumin 2.6 g/dL (3.9-5)
--- NOTE | 2018-08-09 07:57 | Hem/Onc Progress Note ---
Assessment and Plan 1. T4a N0 Mx adenocarcinoma.bowel perforation, hence labeled as stage 4. 2. A 12 lymph nodes were negative. 3. History of diabetes. 4. History of hypertension. 5. History of fall. 6. History of metabolic encephalopathy. 7. 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 8. History of respiratory failure. 9. History of renal impairment. 10. As per the nursing staff, the patient is DNR. The patient received blood transfusion for anemia. 11. The patient is elderly. 12. As per the information, the patient had bowel perforation, hence labeled as stage 4. 13. The patient was intubated at one time during this admission. 14. I will follow the patient. d/w dr meza d/w family pt was using a walker before coming if pts performance improves - willl look into immune based or targetted therapy abdo drain+ 08/08 - CEA 5.6 08/09 - pt on TPN - will await improvement in pts performance status to decide options - Patient Problems (1) Colon cancer Current Visit: Yes Status: Acute Subjective Date of service: 08/09/18 Principal diagnosis: colon ca Interval history: pt on TPN Objective - Constitutional Vitals: Last Vital Signs Temp 97.5 F L 08/08/18 19:59 Pulse 80 08/08/18 22:00 Resp 17 08/08/18 22:00 BP 186/75 08/08/18 19:59 Pulse Ox 99 08/08/18 22:00 Pain Intensity (0-10): denies any pain General appearance: no acute distress Performance status: 3-limited selfcare - EENT Eyes: EOM intact ENT: clear oral mucosa Lymph node exam: negative cervical, negative supraclavicular - Neck Neck: normal ROM - Respiratory Respiratory effort: Positive: normal Respiratory: bilateral: diminished - Cardiovascular Heart Sounds: Present: S1 & S2 Extremity abnormal: edema - Gastrointestinal General gastrointestinal: Present: soft, other (s/p sx) Rectal Exam: deferred - Genitourinary Female genitourinary: Present: deferred - Integumentary Integumentary: warm - Musculoskeletal Musculoskeletal: generalized weakness - Labs Lab Results: Laboratory Results - last 24 hr 08/08/18 08/08/18 08/08/18 08:00 10:42 14:34 WBC RBC Hgb Hct MCV MCH MCHC RDW Plt Count Sodium Potassium Chloride Carbon Dioxide Anion Gap BUN Creatinine Estimated GFR BUN/Creatinine Ratio Glucose POC Glucose 254 H 186 H 171 H Calcium Phosphorus Magnesium Total Bilirubin AST ALT Alkaline Phosphatase Total Protein Albumin Albumin/Globulin Ratio 08/08/18 08/08/18 08/09/18 19:59 23:04 02:27 WBC RBC Hgb Hct MCV MCH MCHC RDW Plt Count Sodium Potassium Chloride Carbon Dioxide Anion Gap BUN Creatinine Estimated GFR BUN/Creatinine Ratio Glucose POC Glucose 203 H 233 H 264 H Calcium Phosphorus Magnesium Total Bilirubin AST ALT Alkaline Phosphatase Total Protein Albumin Albumin/Globulin Ratio 08/09/18 08/09/18 05:30 05:30 WBC 6.7 RBC 3.31 L Hgb 9.6 L Hct 29.0 L MCV 88 MCH 29 MCHC 33 RDW 19.6 H Plt Count 216 Sodium 150 H Potassium 3.8 Chloride 112.8 H Carbon Dioxide 21 L Anion Gap 20 BUN 72 H Creatinine 1.6 H Estimated GFR 37 BUN/Creatinine Ratio 45 Glucose 252 H POC Glucose Calcium 9.0 Phosphorus 3.00 D Magnesium 1.60 L Total Bilirubin 0.60 AST 23 ALT 14 Alkaline Phosphatase 127 Total Protein 6.8 Albumin 2.6 L Albumin/Globulin Ratio 0.6 Medications & Allergies - Medications Allergies/Adverse Reactions: Allergies No Known Allergies Allergy (Unverified 07/18/18 20:42) Home Medications: Home Medications Medication Instructions Recorded Confirmed Last Taken Type Furosemide [Lasix] 20 mg PO DAILY 07/19/18 07/19/18 07/18/18 History Insulin Aspart [Novolog Flexpen] 100 unit SQ TID 07/19/18 07/19/18 07/18/18 History Losartan Potassium [Cozaar] 50 mg PO DAILY 07/19/18 07/19/18 07/18/18 History Metoprolol Xl [Metoprolol 25 mg PO QDAY 07/19/18 07/19/18 07/18/18 History SUCCINATE ER TAB] Naproxen 500 mg PO BID 07/19/18 07/19/18 07/18/18 History Ranitidine HCl [Acid Control] 150 mg PO BID 07/19/18 07/19/18 07/18/18 History Active Medications: Generic Name Dose Route Start Last Admin Trade Name Freq PRN Reason Stop Dose Admin Albuterol 2.5 mg 07/24/18 20:13 07/24/18 20:31 Proventil IH 2.5 mg Q4HRT PRN Administration Shortness Of Breath Albuterol/Ipratropium 1 ampul 07/25/18 14:00 08/08/18 21:16 Duoneb *Not For Prn Use* IH 1 ampul TIDRT TRINY Administration Clonidine HCl 0.3 mg 07/25/18 10:00 08/08/18 10:02 Catapres-Tts Patch TD 0.3 mg Mo TRINY Administration Dextrose 50 ml 07/19/18 02:51 D50w (25gm) Syringe IV PRN PRN Hypoglycemia Hydralazine HCl 20 mg 07/27/18 16:53 08/08/18 08:25 Apresoline IV 20 mg Q4HR PRN Administration Hypertension Dextrose 1,000 mls @ 60 mls/hr 08/08/18 10:30 08/09/18 04:37 D5w IV 60 mls/hr DIRECT TRINY Administration Fat Emulsion Intravenous 250 mls @ 21 mls/hr 08/08/18 20:00 08/08/18 20:11 Intralipid 20% IV 08/09/18 08:00 21 mls/hr [email or web address] TRINY Administration Amino Acids/Electrolytes/Dextrose 1,560 mls @ 65 mls/hr 08/08/18 20:00 08/08/18 20:11 Tpn Adult IV 08/09/18 19:59 65 mls/hr [email or web address] TRINY Administration Protocol Insulin Glargine 20 units 08/02/18 11:00 08/08/18 10:02 Lantus SUB-Q 20 units DAILY TRINY Administration Insulin Human Lispro 0 unit 07/19/18 03:00 08/09/18 02:36 Humalog SUB-Q 6 unit Q4H TRINY Administration Protocol Labetalol HCl 10 mg 07/26/18 12:37 08/08/18 05:06 Normodyne IV 10 mg Q4H PRN Administration Blood Pressure Morphine Sulfate 2 mg 08/03/18 00:21 08/08/18 08:26 Morphine IV 2 mg Q3H PRN Administration Pain, Moderate (4-6) Multi-Ingred Cream/Lotion/Oil/Oint 1 applic 08/01/18 11:56 Artificial Tears Ophth Oint OU Q4HR PRN Dry Eye(s) Pantoprazole Sodium 40 mg 08/02/18 10:00 01/21/19 10:00 Protonix IV Not Given QDAY TRINY
[2018-08-09] MEDS: APRESOLINE IV PRN (08:39)
--- NOTE | 2018-08-09 09:33 | Progress Note ---
Assessment and Plan Impression: * Acute kidney injury secondary multifactorial etioloiges: prerenal azotemia, sepsis related ATN, contrast induced nephropathy * Stage IV adenocarcinoma of colon * s/p right hemicolectomy, ileocolic anastamosis * Sepsis * Intraabdominal abscess w/?perforation vs necrotic tumor * Hypernatermia * Hypertension Plan: * SCr is stable * Sodium improving, continue D5W 60ml/hour * Abx per ID * Continue antiHTN medications - clonidine patch; continue prn Labetalol; will schedule Hydralazine [id number] * Transfuse pRBC per primary team * Consultants' recommendations reviewed * Avoid nephrotoxins * Dose medications for renal function Subjective Date of service: 08/09/18 Principal diagnosis: colon cancer Interval history: Patient more alert. Ate broth this AM. She has no complaints Objective - Vital Signs Vital signs: Vital Signs - 12hr 08/08/18 08/09/18 08/09/18 22:00 07:46 08:39 Temperature 97.6 F Pulse Rate 92 H 92 H Pulse Rate [ 80 From Monitor] Respiratory 17 20 Rate Blood Pressure 210/108 210/108 O2 Sat by Pulse 99 96 Oximetry - General Appearance General appearance: well-developed, well-nourished EENT: ATNC Respiratory: Present: Decreased Breath Sounds Cardiology: regular, S1S2 Gastrointestinal: hypoactive bowel sounds, distended Integumentary: warm and dry Neurologic: no focal deficit Psychiatric: cooperative - Lab 08/09/18 05:30 08/09/18 05:30 Most recent lab results Calcium 9.0 mg/dL (8.4-10.2) 08/09/18 05:30 Phosphorus 3.00 mg/dL (2.5-4.5) D 08/09/18 05:30 Magnesium 1.60 mg/dL (1.7-2.3) L 08/09/18 05:30 Medications & Allergies - Medications Allergies/Adverse Reactions: Allergies No Known Allergies Allergy (Unverified 07/18/18 20:42) Home Medications: Home Medications Medication Instructions Recorded Confirmed Last Taken Type Furosemide [Lasix] 20 mg PO DAILY 07/19/18 07/19/18 07/18/18 History Insulin Aspart [Novolog Flexpen] 100 unit SQ TID 07/19/18 07/19/18 07/18/18 History Losartan Potassium [Cozaar] 50 mg PO DAILY 07/19/18 07/19/18 07/18/18 History Metoprolol Xl [Metoprolol 25 mg PO QDAY 07/19/18 07/19/18 07/18/18 History SUCCINATE ER TAB] Naproxen 500 mg PO BID 07/19/18 07/19/18 07/18/18 History Ranitidine HCl [Acid Control] 150 mg PO BID 07/19/18 07/19/18 07/18/18 History Active Medications: Generic Name Dose Route Start Last Admin Trade Name Freq PRN Reason Stop Dose Admin Albuterol 2.5 mg 07/24/18 20:13 07/24/18 20:31 Proventil IH 2.5 mg Q4HRT PRN Administration Shortness Of Breath Albuterol/Ipratropium 1 ampul 07/25/18 14:00 08/08/18 21:16 Duoneb *Not For Prn Use* IH 1 ampul TIDRT TRINY Administration Clonidine HCl 0.3 mg 07/25/18 10:00 08/08/18 10:02 Catapres-Tts Patch TD 0.3 mg Mo TRINY Administration Dextrose 50 ml 07/19/18 02:51 D50w (25gm) Syringe IV PRN PRN Hypoglycemia Hydralazine HCl 20 mg 07/27/18 16:53 08/09/18 08:39 Apresoline IV 20 mg Q4HR PRN Administration Hypertension Dextrose 1,000 mls @ 60 mls/hr 08/08/18 10:30 08/09/18 04:37 D5w IV 60 mls/hr DIRECT TRINY Administration Amino Acids/Electrolytes/Dextrose 1,560 mls @ 65 mls/hr 08/08/18 20:00 08/08/18 20:11 Tpn Adult IV 08/09/18 19:59 65 mls/hr [email or web address] TRINY Administration Protocol Insulin Glargine 20 units 08/02/18 11:00 08/08/18 10:02 Lantus SUB-Q 20 units DAILY TRINY Administration Insulin Human Lispro 0 unit 07/19/18 03:00 08/09/18 08:39 Humalog SUB-Q 6 unit Q4H TRINY Administration Protocol Labetalol HCl 10 mg 07/26/18 12:37 08/08/18 05:06 Normodyne IV 10 mg Q4H PRN Administration Blood Pressure Morphine Sulfate 2 mg 08/03/18 00:21 08/08/18 08:26 Morphine IV 2 mg Q3H PRN Administration Pain, Moderate (4-6) Multi-Ingred Cream/Lotion/Oil/Oint 1 applic 08/01/18 11:56 Artificial Tears Ophth Oint OU Q4HR PRN Dry Eye(s) Pantoprazole Sodium 40 mg 08/02/18 10:00 08/08/18 10:00 Protonix IV Not Given QDAY TRINY
[2018-08-09] MEDS ORDERED: APRESOLINE IV SCH (10:00)
[2018-08-09] MEDS: PROTONIX IV SCH (10:05)
[2018-08-09] MEDS: LANTUS SUB-Q SCH (10:11)
[2018-08-09] MEDS: DUONEB *Not for PRN Use IH SCH ×3 (10:52→20:37)
--- NOTE | 2018-08-09 12:33 | Progress Note ---
Assessment and Plan Imp: 1. Colon cancer 2. Perforated viscus 3. Sepsis 4. Acute respiratory failure, hypoxia 5. Bibasilar atelectasis 6. SHREYAS Rec: 1. CXR findings likely reflect atelectasis due to hypoventilation in setting of abdominal pain/distension + bed-bound status/weakness; doubt pneumonia; would focus on incentive spirometry and mobilization w/ PT, etc. 2. Can continue the Duonebs 3. SCDs 4. Correct sodium per renal/primary 5. Would continue to work on improving BP control 6. We will monitor with you; pulm-meza stable Plan of care reviewed with patient/family, they understand/agree Subjective Date of service: 08/09/18 Principal diagnosis: colon cancer Interval history: No events. On 2L NC. Poor historian. More alert today. No SOB. Sitting on edge of bed with PT. Active Medications Albuterol (Proventil) 2.5 mg IH Q4HRT PRN PRN Reason: Shortness Of Breath Last Admin: 07/24/18 20:31 Dose: 2.5 mg Documented by: Albuterol/Ipratropium (Duoneb *Not For Prn Use*) 1 ampul IH TIDRT [facility] Last Admin: 08/09/18 10:52 Dose: 1 ampul Documented by: Clonidine HCl (Catapres-Tts Patch) 0.3 mg TD Mo [facility] Last Admin: 08/08/18 10:02 Dose: 0.3 mg Documented by: Dextrose (D50w (25gm) Syringe) 50 ml IV PRN PRN PRN Reason: Hypoglycemia Hydralazine HCl (Apresoline) 20 mg IV Q6H [facility] Dextrose (D5w) 1,000 mls @ 60 mls/hr IV DIRECT [facility] Last Admin: 08/09/18 04:37 Dose: 60 mls/hr Documented by: Amino Acids/Electrolytes/Dextrose (Tpn Adult) 1,560 mls @ 65 mls/hr IV DAILY@1999 [facility]; Protocol Stop: 08/09/18 19:59 Last Admin: 08/08/18 20:11 Dose: 65 mls/hr Documented by: Insulin Glargine (Lantus) 20 units SUB-Q DAILY [facility] Last Admin: 08/09/18 10:11 Dose: 20 units Documented by: Insulin Human Lispro (Humalog) 0 unit SUB-Q Q4H [facility]; Protocol Last Admin: 08/09/18 11:44 Dose: 4 unit Documented by: Labetalol HCl (Normodyne) 10 mg IV Q4H PRN PRN Reason: Blood Pressure Last Admin: 08/08/18 05:06 Dose: 10 mg Documented by: Morphine Sulfate (Morphine) 2 mg IV Q3H PRN PRN Reason: Pain, Moderate (4-6) Last Admin: 08/08/18 08:26 Dose: 2 mg Documented by: Multi-Ingred Cream/Lotion/Oil/Oint (Artificial Tears Ophth Oint) 1 applic OU Q4HR PRN PRN Reason: Dry Eye(s) Pantoprazole Sodium (Protonix) 40 mg IV QDAY [facility] Last Admin: 08/09/18 10:05 Dose: 40 mg Documented by: Objective Vital Signs - 12hr 08/09/18 08/09/18 08/09/18 07:46 08:39 10:00 Temperature 97.6 F Pulse Rate 92 H 92 H Pulse Rate [ Anterior Bilateral Throughout] Pulse Rate [ Anterior Bilateral] Respiratory 20 Rate Respiratory Rate [Anterior Bilateral Throughout] Respiratory Rate [Anterior Bilateral] Blood Pressure 210/108 210/108 O2 Sat by Pulse 96 98 Oximetry 08/09/18 08/09/18 10:05 10:31 Temperature Pulse Rate Pulse Rate [ 92 H Anterior Bilateral Throughout] Pulse Rate [ 75 Anterior Bilateral] Respiratory Rate Respiratory 18 Rate [Anterior Bilateral Throughout] Respiratory 16 Rate [Anterior Bilateral] Blood Pressure 173/87 O2 Sat by Pulse Oximetry Constitutional: no acute distress, alert Eyes: non-icteric Neck: supple Effort: normal Ascultation: Bilateral: diminished breath sounds Cardiovascular: regular rate and rhythm (no mrg) Gastrointestinal: hypoactive bowel sounds, soft, other (distended mildly) Integumentary: normal Extremities: no cyanosis, no edema, pink and warm Neurologic: normal mental status, non-focal exam, pupils equal and round, CN II- XII normal Psychiatric: mood appropriate, affect normal CBC and BMP: 08/09/18 05:30 08/09/18 05:30 ABG, PT/INR, D-dimer: ABG POC ABG pH 7.409 (7.35-7.45) 08/02/18 09:56 POC ABG pCO2 38.5 (35-45) 08/02/18 09:56 POC ABG pO2 70 (80-105) L 08/02/18 09:56 POC ABG HCO3 24.3 08/02/18 09:56 POC ABG Total CO2 25 08/02/18 09:56 POC ABG O2 Sat 94 08/02/18 09:56 PT/INR, D-dimer PT 14.5 Sec. (12.2-14.9) 07/28/18 05:27 INR 1.09 (0.87-1.13) 07/28/18 05:27 Abnormal lab findings: Abnormal Labs 07/18/18 07/18/18 07/18/18 20:28 20:48 20:48 WBC 12.3 H RBC 3.47 L Hgb 9.1 L Hct 28.9 L MCH 26 L RDW 16.1 H Plt Count 473 H Lymph % (Auto) 5.4 L [place] % (Auto) Lymph # 0.7 L [place] # Seg Neutrophils % 86.5 H Seg Neuts % (Manual) Lymphocytes % (Manual) Monocytes % (Manual) Seg Neutrophils # 10.7 H Seg Neutrophils # Man Lymphocytes # (Manual) Monocytes # (Manual) APTT POC ABG pO2 Sodium Potassium Chloride Carbon Dioxide BUN Creatinine Glucose 108 H POC Glucose 109 H Calcium Phosphorus Magnesium Iron TIBC C-Reactive Protein Total Protein Albumin 3.1 L Vitamin B12 Crossmatch 07/18/18 07/18/18 07/19/18 20:48 23:12 02:50 WBC RBC 3.35 L Hgb 9.0 L Hct 27.9 L MCH 27 L RDW 15.8 H Plt Count Lymph % (Auto) [place] % (Auto) Lymph # [place] # Seg Neutrophils % Seg Neuts % (Manual) Lymphocytes % (Manual) Monocytes % (Manual) Seg Neutrophils # Seg Neutrophils # Man Lymphocytes # (Manual) Monocytes # (Manual) APTT 23.2 L POC ABG pO2 Sodium Potassium Chloride Carbon Dioxide BUN Creatinine Glucose POC Glucose 106 H Calcium Phosphorus Magnesium Iron TIBC C-Reactive Protein Total Protein Albumin Vitamin B12 Crossmatch 07/19/18 07/19/18 07/19/18 02:50 08:00 11:46 WBC RBC Hgb Hct MCH RDW Plt Count Lymph % (Auto) [place] % (Auto) Lymph # [place] # Seg Neutrophils % Seg Neuts % (Manual) Lymphocytes % (Manual) Monocytes % (Manual) Seg Neutrophils # Seg Neutrophils # Man Lymphocytes # (Manual) Monocytes # (Manual) APTT POC ABG pO2 Sodium 136 L Potassium Chloride Carbon Dioxide BUN Creatinine Glucose 105 H POC Glucose 131 H 152 H Calcium Phosphorus Magnesium Iron TIBC C-Reactive Protein Total Protein Albumin Vitamin B12 Crossmatch 07/19/18 07/19/18 07/19/18 13:46 15:34 20:42 WBC RBC Hgb Hct MCH RDW Plt Count Lymph % (Auto) [place] % (Auto) Lymph # [place] # Seg Neutrophils % Seg Neuts % (Manual) Lymphocytes % (Manual) Monocytes % (Manual) Seg Neutrophils # Seg Neutrophils # Man Lymphocytes # (Manual) Monocytes # (Manual) APTT POC ABG pO2 Sodium Potassium Chloride Carbon Dioxide BUN Creatinine Glucose POC Glucose 152 H 182 H 187 H Calcium Phosphorus Magnesium Iron TIBC C-Reactive Protein Total Protein Albumin Vitamin B12 Crossmatch 07/19/18 07/20/18 07/20/18 23:05 02:15 06:14 WBC RBC Hgb Hct MCH RDW Plt Count Lymph % (Auto) [place] % (Auto) Lymph # [place] # Seg Neutrophils % Seg Neuts % (Manual) Lymphocytes % (Manual) Monocytes % (Manual) Seg Neutrophils # Seg Neutrophils # Man Lymphocytes # (Manual) Monocytes # (Manual) APTT POC ABG pO2 Sodium Potassium Chloride Carbon Dioxide BUN Creatinine Glucose POC Glucose 133 H 154 H 137 H Calcium Phosphorus Magnesium Iron TIBC C-Reactive Protein Total Protein Albumin Vitamin B12 Crossmatch 07/20/18 07/20/18 07/20/18 06:47 06:47 12:01 WBC 11.7 H RBC 3.51 L Hgb 9.2 L Hct 29.3 L MCH 26 L RDW 15.9 H Plt Count Lymph % (Auto) 12.0 L [place] % (Auto) Lymph # [place] # Seg Neutrophils % 80.8 H Seg Neuts % (Manual) Lymphocytes % (Manual) Monocytes % (Manual) Seg Neutrophils # 9.4 H Seg Neutrophils # Man Lymphocytes # (Manual) Monocytes # (Manual) APTT POC ABG pO2 Sodium Potassium Chloride Carbon Dioxide BUN Creatinine Glucose 126 H POC Glucose 157 H Calcium 8.3 L Phosphorus Magnesium Iron TIBC C-Reactive Protein Total Protein Albumin 2.8 L Vitamin B12 Crossmatch 07/20/18 07/20/18 07/20/18 16:11 19:56 23:34 WBC RBC Hgb Hct MCH RDW Plt Count Lymph % (Auto) [place] % (Auto) Lymph # [place] # Seg Neutrophils % Seg Neuts % (Manual) Lymphocytes % (Manual) Monocytes % (Manual) Seg Neutrophils # Seg Neutrophils # Man Lymphocytes # (Manual) Monocytes # (Manual) APTT POC ABG pO2 Sodium Potassium Chloride Carbon Dioxide BUN Creatinine Glucose POC Glucose 155 H 158 H 149 H Calcium Phosphorus Magnesium Iron TIBC C-Reactive Protein Total Protein Albumin Vitamin B12 Crossmatch 07/21/18 07/21/18 07/21/18 04:16 08:11 11:15 WBC RBC Hgb Hct MCH RDW Plt Count Lymph % (Auto) [place] % (Auto) Lymph # [place] # Seg Neutrophils % Seg Neuts % (Manual) Lymphocytes % (Manual) Monocytes % (Manual) Seg Neutrophils # Seg Neutrophils # Man Lymphocytes # (Manual) Monocytes # (Manual) APTT POC ABG pO2 Sodium Potassium Chloride Carbon Dioxide BUN Creatinine Glucose POC Glucose 127 H 142 H 159 H Calcium Phosphorus Magnesium Iron TIBC C-Reactive Protein Total Protein Albumin Vitamin B12 Crossmatch 07/21/18 07/21/18 07/21/18 16:12 18:49 23:03 WBC RBC Hgb Hct MCH RDW Plt Count Lymph % (Auto) [place] % (Auto) Lymph # [place] # Seg Neutrophils % Seg Neuts % (Manual) Lymphocytes % (Manual) Monocytes % (Manual) Seg Neutrophils # Seg Neutrophils # Man Lymphocytes # (Manual) Monocytes # (Manual) APTT POC ABG pO2 Sodium Potassium Chloride Carbon Dioxide BUN Creatinine Glucose POC Glucose 134 H 113 H 120 H Calcium Phosphorus Magnesium Iron TIBC C-Reactive Protein Total Protein Albumin Vitamin B12 Crossmatch 07/22/18 07/22/18 07/22/18 05:24 08:09 11:42 WBC RBC Hgb Hct MCH RDW Plt Count Lymph % (Auto) [place] % (Auto) Lymph # [place] # Seg Neutrophils % Seg Neuts % (Manual) Lymphocytes % (Manual) Monocytes % (Manual) Seg Neutrophils # Seg Neutrophils # Man Lymphocytes # (Manual) Monocytes # (Manual) APTT POC ABG pO2 Sodium Potassium Chloride Carbon Dioxide BUN Creatinine Glucose POC Glucose 126 H 112 H 143 H Calcium Phosphorus Magnesium Iron TIBC C-Reactive Protein Total Protein Albumin Vitamin B12 Crossmatch 07/22/18 07/22/18 07/22/18 13:47 16:26 22:48 WBC RBC 3.16 L Hgb 8.3 L Hct 26.5 L MCH 26 L RDW 16.6 H Plt Count Lymph % (Auto) 12.0 L [place] % (Auto) Lymph # 1.1 L [place] # Seg Neutrophils % 79.9 H Seg Neuts % (Manual) Lymphocytes % (Manual) Monocytes % (Manual) Seg Neutrophils # Seg Neutrophils # Man Lymphocytes # (Manual) Monocytes # (Manual) APTT POC ABG pO2 Sodium Potassium Chloride Carbon Dioxide BUN Creatinine Glucose POC Glucose 132 H 118 H Calcium Phosphorus Magnesium Iron TIBC C-Reactive Protein Total Protein Albumin Vitamin B12 Crossmatch 07/23/18 07/23/18 07/23/18 05:01 05:39 05:39 WBC RBC 3.04 L Hgb 8.3 L Hct 25.6 L MCH 27 L RDW 16.7 H Plt Count Lymph % (Auto) 13.1 L [place] % (Auto) 8.1 H Lymph # 1.0 L [place] # Seg Neutrophils % 77.0 H Seg Neuts % (Manual) Lymphocytes % (Manual) Monocytes % (Manual) Seg Neutrophils # Seg Neutrophils # Man Lymphocytes # (Manual) Monocytes # (Manual) APTT POC ABG pO2 Sodium Potassium Chloride Carbon Dioxide BUN 22 H Creatinine Glucose 224 H POC Glucose 197 H Calcium 8.3 L Phosphorus 1.90 L Magnesium 1.60 L Iron TIBC C-Reactive Protein Total Protein Albumin 2.8 L Vitamin B12 Crossmatch 07/23/18 07/23/18 07/23/18 07:37 12:10 15:41 WBC RBC Hgb Hct MCH RDW Plt Count Lymph % (Auto) [place] % (Auto) Lymph # [place] # Seg Neutrophils % Seg Neuts % (Manual) Lymphocytes % (Manual) Monocytes % (Manual) Seg Neutrophils # Seg Neutrophils # Man Lymphocytes # (Manual) Monocytes # (Manual) APTT POC ABG pO2 Sodium Potassium Chloride Carbon Dioxide BUN Creatinine Glucose POC Glucose 192 H 191 H 187 H Calcium Phosphorus Magnesium Iron TIBC C-Reactive Protein Total Protein Albumin Vitamin B12 Crossmatch 07/23/18 07/24/18 07/24/18 23:12 03:12 04:34 WBC RBC Hgb Hct MCH RDW Plt Count Lymph % (Auto) [place] % (Auto) Lymph # [place] # Seg Neutrophils % Seg Neuts % (Manual) Lymphocytes % (Manual) Monocytes % (Manual) Seg Neutrophils # Seg Neutrophils # Man Lymphocytes # (Manual) Monocytes # (Manual) APTT POC ABG pO2 Sodium Potassium Chloride Carbon Dioxide BUN 25 H Creatinine Glucose 191 H POC Glucose 231 H 224 H Calcium 8.3 L Phosphorus 1.60 L Magnesium 1.60 L Iron TIBC C-Reactive Protein Total Protein Albumin Vitamin B12 Crossmatch 07/24/18 07/24/18 07/24/18 08:21 12:12 16:55 WBC RBC Hgb Hct MCH RDW Plt Count Lymph % (Auto) [place] % (Auto) Lymph # [place] # Seg Neutrophils % Seg Neuts % (Manual) Lymphocytes % (Manual) Monocytes % (Manual) Seg Neutrophils # Seg Neutrophils # Man Lymphocytes # (Manual) Monocytes # (Manual) APTT POC ABG pO2 Sodium Potassium Chloride Carbon Dioxide BUN Creatinine Glucose POC Glucose 187 H 167 H 192 H Calcium Phosphorus Magnesium Iron TIBC C-Reactive Protein Total Protein Albumin Vitamin B12 Crossmatch 07/24/18 07/24/18 07/25/18 20:30 23:38 02:44 WBC RBC Hgb Hct MCH RDW Plt Count Lymph % (Auto) [place] % (Auto) Lymph # [place] # Seg Neutrophils % Seg Neuts % (Manual) Lymphocytes % (Manual) Monocytes % (Manual) Seg Neutrophils # Seg Neutrophils # Man Lymphocytes # (Manual) Monocytes # (Manual) APTT POC ABG pO2 Sodium Potassium Chloride Carbon Dioxide BUN Creatinine Glucose POC Glucose 192 H 181 H 196 H Calcium Phosphorus Magnesium Iron TIBC C-Reactive Protein Total Protein Albumin Vitamin B12 Crossmatch 07/25/18 07/25/18 07/25/18 03:58 03:58 06:35 WBC RBC Hgb Hct MCH RDW Plt Count Lymph % (Auto) [place] % (Auto) Lymph # [place] # Seg Neutrophils % Seg Neuts % (Manual) Lymphocytes % (Manual) Monocytes % (Manual) Seg Neutrophils # Seg Neutrophils # Man Lymphocytes # (Manual) Monocytes # (Manual) APTT POC ABG pO2 Sodium Potassium Chloride Carbon Dioxide BUN 23 H Creatinine Glucose 197 H POC Glucose 203 H Calcium Phosphorus 2.30 L D Magnesium Iron TIBC C-Reactive Protein 4.30 H Total Protein Albumin Vitamin B12 Crossmatch 07/25/18 07/25/18 07/25/18 12:04 16:33 19:50 WBC RBC Hgb Hct MCH RDW Plt Count Lymph % (Auto) [place] % (Auto) Lymph # [place] # Seg Neutrophils % Seg Neuts % (Manual) Lymphocytes % (Manual) Monocytes % (Manual) Seg Neutrophils # Seg Neutrophils # Man Lymphocytes # (Manual) Monocytes # (Manual) APTT POC ABG pO2 Sodium Potassium Chloride Carbon Dioxide BUN Creatinine Glucose POC Glucose 153 H 204 H 213 H Calcium Phosphorus Magnesium Iron TIBC C-Reactive Protein Total Protein Albumin Vitamin B12 Crossmatch 07/25/18 07/26/18 07/26/18 22:52 02:38 04:13 WBC RBC Hgb Hct MCH RDW Plt Count Lymph % (Auto) [place] % (Auto) Lymph # [place] # Seg Neutrophils % Seg Neuts % (Manual) Lymphocytes % (Manual) Monocytes % (Manual) Seg Neutrophils # Seg Neutrophils # Man Lymphocytes # (Manual) Monocytes # (Manual) APTT POC ABG pO2 Sodium Potassium Chloride Carbon Dioxide BUN 22 H Creatinine Glucose 180 H POC Glucose 182 H 169 H Calcium 8.3 L Phosphorus Magnesium Iron TIBC C-Reactive Protein Total Protein Albumin Vitamin B12 Crossmatch 07/26/18 07/26/18 07/27/18 06:37 22:45 02:44 WBC RBC Hgb Hct MCH RDW Plt Count Lymph % (Auto) [place] % (Auto) Lymph # [place] # Seg Neutrophils % Seg Neuts % (Manual) Lymphocytes % (Manual) Monocytes % (Manual) Seg Neutrophils # Seg Neutrophils # Man Lymphocytes # (Manual) Monocytes # (Manual) APTT POC ABG pO2 Sodium Potassium Chloride Carbon Dioxide BUN 24 H Creatinine Glucose 195 H POC Glucose 156 H 237 H Calcium Phosphorus Magnesium Iron TIBC C-Reactive Protein Total Protein Albumin Vitamin B12 Crossmatch 07/27/18 07/27/18 07/27/18 02:51 06:27 10:45 WBC RBC Hgb Hct MCH RDW Plt Count Lymph % (Auto) [place] % (Auto) Lymph # [place] # Seg Neutrophils % Seg Neuts % (Manual) Lymphocytes % (Manual) Monocytes % (Manual) Seg Neutrophils # Seg Neutrophils # Man Lymphocytes # (Manual) Monocytes # (Manual) APTT POC ABG pO2 Sodium Potassium Chloride Carbon Dioxide BUN Creatinine Glucose POC Glucose 166 H 212 H 177 H Calcium Phosphorus Magnesium Iron TIBC C-Reactive Protein Total Protein Albumin Vitamin B12 Crossmatch 07/27/18 07/28/18 07/28/18 16:14 00:12 05:06 WBC RBC Hgb Hct MCH RDW Plt Count Lymph % (Auto) [place] % (Auto) Lymph # [place] # Seg Neutrophils % Seg Neuts % (Manual) Lymphocytes % (Manual) Monocytes % (Manual) Seg Neutrophils # Seg Neutrophils # Man Lymphocytes # (Manual) Monocytes # (Manual) APTT POC ABG pO2 Sodium Potassium Chloride Carbon Dioxide BUN Creatinine Glucose POC Glucose 225 H 220 H 214 H Calcium Phosphorus Magnesium Iron TIBC C-Reactive Protein Total Protein Albumin Vitamin B12 Crossmatch 07/28/18 07/28/18 07/28/18 05:27 08:09 11:05 WBC RBC Hgb Hct MCH RDW Plt Count Lymph % (Auto) [place] % (Auto) Lymph # [place] # Seg Neutrophils % Seg Neuts % (Manual) Lymphocytes % (Manual) Monocytes % (Manual) Seg Neutrophils # Seg Neutrophils # Man Lymphocytes # (Manual) Monocytes # (Manual) APTT POC ABG pO2 Sodium Potassium Chloride Carbon Dioxide BUN 25 H Creatinine 0.6 L Glucose 213 H POC Glucose 228 H 258 H Calcium Phosphorus Magnesium Iron TIBC C-Reactive Protein Total Protein Albumin Vitamin B12 Crossmatch 07/28/18 07/28/18 07/28/18 12:19 17:40 17:40 WBC RBC 2.87 L Hgb 7.7 L Hct 24.9 L MCH 27 L RDW 18.0 H Plt Count Lymph % (Auto) [place] % (Auto) Lymph # [place] # Seg Neutrophils % Seg Neuts % (Manual) Lymphocytes % (Manual) Monocytes % (Manual) Seg Neutrophils # Seg Neutrophils # Man Lymphocytes # (Manual) Monocytes # (Manual) APTT POC ABG pO2 Sodium Potassium Chloride Carbon Dioxide BUN Creatinine Glucose POC Glucose 209 H Calcium Phosphorus Magnesium Iron TIBC C-Reactive Protein Total Protein Albumin Vitamin B12 Crossmatch See Detail 07/28/18 07/28/18 07/29/18 20:00 23:48 02:29 WBC RBC Hgb Hct MCH RDW Plt Count Lymph % (Auto) [place] % (Auto) Lymph # [place] # Seg Neutrophils % Seg Neuts % (Manual) Lymphocytes % (Manual) Monocytes % (Manual) Seg Neutrophils # Seg Neutrophils # Man Lymphocytes # (Manual) Monocytes # (Manual) APTT POC ABG pO2 Sodium Potassium Chloride Carbon Dioxide BUN Creatinine Glucose POC Glucose 192 H 211 H 217 H Calcium Phosphorus Magnesium Iron TIBC C-Reactive Protein Total Protein Albumin Vitamin B12 Crossmatch 07/29/18 07/29/18 07/29/18 05:26 05:26 11:33 WBC RBC 3.20 L Hgb 8.5 L Hct 26.8 L MCH 27 L RDW 17.5 H Plt Count Lymph % (Auto) [place] % (Auto) 10.8 H Lymph # [place] # 1.2 H Seg Neutrophils % 70.8 H Seg Neuts % (Manual) Lymphocytes % (Manual) Monocytes % (Manual) Seg Neutrophils # Seg Neutrophils # Man Lymphocytes # (Manual) Monocytes # (Manual) APTT POC ABG pO2 Sodium Potassium 5.3 H Chloride Carbon Dioxide BUN 25 H Creatinine 0.6 L Glucose 227 H POC Glucose 202 H Calcium Phosphorus Magnesium Iron TIBC C-Reactive Protein Total Protein Albumin Vitamin B12 Crossmatch 07/29/18 07/29/18 07/30/18 18:35 23:01 04:27 WBC RBC Hgb Hct MCH RDW Plt Count Lymph % (Auto) [place] % (Auto) Lymph # [place] # Seg Neutrophils % Seg Neuts % (Manual) Lymphocytes % (Manual) Monocytes % (Manual) Seg Neutrophils # Seg Neutrophils # Man Lymphocytes # (Manual) Monocytes # (Manual) APTT POC ABG pO2 Sodium Potassium Chloride Carbon Dioxide BUN Creatinine Glucose POC Glucose 194 H 218 H 176 H Calcium Phosphorus Magnesium Iron TIBC C-Reactive Protein Total Protein Albumin Vitamin B12 Crossmatch 07/30/18 07/30/18 07/30/18 10:12 11:00 11:00 WBC RBC Hgb Hct MCH RDW 17.9 H Plt Count Lymph % (Auto) 12.3 L [place] % (Auto) 10.2 H Lymph # [place] # 1.0 H Seg Neutrophils % 75.4 H Seg Neuts % (Manual) Lymphocytes % (Manual) Monocytes % (Manual) Seg Neutrophils # Seg Neutrophils # Man Lymphocytes # (Manual) Monocytes # (Manual) APTT POC ABG pO2 Sodium Potassium Chloride Carbon Dioxide BUN 22 H Creatinine Glucose 269 H POC Glucose 265 H Calcium Phosphorus Magnesium Iron TIBC C-Reactive Protein Total Protein Albumin Vitamin B12 Crossmatch 07/30/18 07/30/18 07/30/18 15:11 17:21 21:47 WBC RBC Hgb Hct MCH RDW Plt Count Lymph % (Auto) [place] % (Auto) Lymph # [place] # Seg Neutrophils % Seg Neuts % (Manual) Lymphocytes % (Manual) Monocytes % (Manual) Seg Neutrophils # Seg Neutrophils # Man Lymphocytes # (Manual) Monocytes # (Manual) APTT POC ABG pO2 Sodium Potassium Chloride Carbon Dioxide BUN Creatinine Glucose POC Glucose 208 H 177 H 146 H Calcium Phosphorus Magnesium Iron TIBC C-Reactive Protein Total Protein Albumin Vitamin B12 Crossmatch 07/31/18 07/31/18 07/31/18 02:13 03:56 10:15 WBC RBC Hgb Hct MCH RDW Plt Count Lymph % (Auto) [place] % (Auto) Lymph # [place] # Seg Neutrophils % Seg Neuts % (Manual) Lymphocytes % (Manual) Monocytes % (Manual) Seg Neutrophils # Seg Neutrophils # Man Lymphocytes # (Manual) Monocytes # (Manual) APTT POC ABG pO2 Sodium Potassium Chloride Carbon Dioxide BUN 26 H Creatinine 0.6 L Glucose 201 H POC Glucose 208 H 216 H Calcium Phosphorus Magnesium Iron TIBC C-Reactive Protein Total Protein Albumin Vitamin B12 Crossmatch 07/31/18 07/31/18 08/01/18 15:42 22:34 03:09 WBC RBC Hgb Hct MCH RDW Plt Count Lymph % (Auto) [place] % (Auto) Lymph # [place] # Seg Neutrophils % Seg Neuts % (Manual) Lymphocytes % (Manual) Monocytes % (Manual) Seg Neutrophils # Seg Neutrophils # Man Lymphocytes # (Manual) Monocytes # (Manual) APTT POC ABG pO2 Sodium Potassium Chloride Carbon Dioxide BUN Creatinine Glucose POC Glucose 205 H 236 H 253 H Calcium Phosphorus Magnesium Iron TIBC C-Reactive Protein Total Protein Albumin Vitamin B12 Crossmatch 08/01/18 08/01/18 08/01/18 04:19 06:14 07:18 WBC RBC Hgb Hct MCH RDW Plt Count Lymph % (Auto) [place] % (Auto) Lymph # [place] # Seg Neutrophils % Seg Neuts % (Manual) Lymphocytes % (Manual) Monocytes % (Manual) Seg Neutrophils # Seg Neutrophils # Man Lymphocytes # (Manual) Monocytes # (Manual) APTT POC ABG pO2 Sodium Potassium 3.3 L Chloride Carbon Dioxide BUN 26 H Creatinine 0.5 L Glucose 238 H POC Glucose 257 H Calcium 7.1 L D Phosphorus Magnesium Iron TIBC C-Reactive Protein Total Protein Albumin Vitamin B12 Crossmatch See Detail 08/01/18 08/01/18 08/01/18 11:41 12:13 16:28 WBC RBC Hgb Hct MCH RDW Plt Count Lymph % (Auto) [place] % (Auto) Lymph # [place] # Seg Neutrophils % Seg Neuts % (Manual) Lymphocytes % (Manual) Monocytes % (Manual) Seg Neutrophils # Seg Neutrophils # Man Lymphocytes # (Manual) Monocytes # (Manual) APTT POC ABG pO2 339 H Sodium Potassium Chloride Carbon Dioxide BUN Creatinine Glucose POC Glucose 184 H 305 H Calcium Phosphorus Magnesium Iron TIBC C-Reactive Protein Total Protein Albumin Vitamin B12 Crossmatch 08/01/18 08/01/18 08/02/18 18:25 21:09 02:01 WBC RBC Hgb Hct MCH RDW Plt Count Lymph % (Auto) [place] % (Auto) Lymph # [place] # Seg Neutrophils % Seg Neuts % (Manual) Lymphocytes % (Manual) Monocytes % (Manual) Seg Neutrophils # Seg Neutrophils # Man Lymphocytes # (Manual) Monocytes # (Manual) APTT POC ABG pO2 Sodium Potassium Chloride Carbon Dioxide BUN Creatinine Glucose POC Glucose 338 H 328 H 350 H Calcium Phosphorus Magnesium Iron TIBC C-Reactive Protein Total Protein Albumin Vitamin B12 Crossmatch 08/02/18 08/02/18 08/02/18 04:26 04:26 05:47 WBC 20.9 H RBC Hgb Hct MCH RDW 20.1 H Plt Count Lymph % (Auto) [place] % (Auto) Lymph # [place] # Seg Neutrophils % Seg Neuts % (Manual) 90.0 H Lymphocytes % (Manual) 7.0 L Monocytes % (Manual) Seg Neutrophils # Seg Neutrophils # Man 18.8 H Lymphocytes # (Manual) Monocytes # (Manual) APTT POC ABG pO2 Sodium 133 L Potassium Chloride 97.5 L Carbon Dioxide BUN 48 H Creatinine Glucose 347 H POC Glucose 351 H Calcium 7.8 L Phosphorus Magnesium Iron TIBC C-Reactive Protein Total Protein 5.4 L Albumin 2.2 L Vitamin B12 Crossmatch 08/02/18 08/02/18 08/02/18 05:52 09:56 10:02 WBC RBC Hgb Hct MCH RDW Plt Count Lymph % (Auto) [place] % (Auto) Lymph # [place] # Seg Neutrophils % Seg Neuts % (Manual) Lymphocytes % (Manual) Monocytes % (Manual) Seg Neutrophils # Seg Neutrophils # Man Lymphocytes # (Manual) Monocytes # (Manual) APTT POC ABG pO2 74 L 70 L Sodium Potassium Chloride Carbon Dioxide BUN Creatinine Glucose POC Glucose 351 H Calcium Phosphorus Magnesium Iron TIBC C-Reactive Protein Total Protein Albumin Vitamin B12 Crossmatch 08/02/18 08/02/18 08/03/18 16:34 22:28 03:13 WBC RBC Hgb Hct MCH RDW Plt Count Lymph % (Auto) [place] % (Auto) Lymph # [place] # Seg Neutrophils % Seg Neuts % (Manual) Lymphocytes % (Manual) Monocytes % (Manual) Seg Neutrophils # Seg Neutrophils # Man Lymphocytes # (Manual) Monocytes # (Manual) APTT POC ABG pO2 Sodium Potassium Chloride Carbon Dioxide BUN Creatinine Glucose POC Glucose 250 H 175 H 189 H Calcium Phosphorus Magnesium Iron TIBC C-Reactive Protein Total Protein Albumin Vitamin B12 Crossmatch 08/03/18 08/03/18 08/03/18 04:42 04:42 04:42 WBC 16.5 H RBC 3.43 L Hgb 9.6 L Hct MCH RDW 20.2 H Plt Count Lymph % (Auto) 7.9 L [place] % (Auto) 10.8 H Lymph # [place] # 1.8 H Seg Neutrophils % 80.5 H Seg Neuts % (Manual) Lymphocytes % (Manual) Monocytes % (Manual) Seg Neutrophils # 13.3 H Seg Neutrophils # Man Lymphocytes # (Manual) Monocytes # (Manual) APTT POC ABG pO2 Sodium Potassium Chloride Carbon Dioxide BUN 69 H Creatinine 2.0 H D Glucose 163 H POC Glucose Calcium 7.9 L Phosphorus 6.80 H D Magnesium 2.40 H Iron TIBC C-Reactive Protein Total Protein 5.5 L Albumin 2.5 L Vitamin B12 Crossmatch 08/03/18 08/03/18 08/03/18 06:21 08:34 10:16 WBC RBC Hgb Hct MCH RDW Plt Count Lymph % (Auto) [place] % (Auto) Lymph # [place] # Seg Neutrophils % Seg Neuts % (Manual) Lymphocytes % (Manual) Monocytes % (Manual) Seg Neutrophils # Seg Neutrophils # Man Lymphocytes # (Manual) Monocytes # (Manual) APTT POC ABG pO2 Sodium Potassium Chloride Carbon Dioxide BUN Creatinine Glucose POC Glucose 163 H 129 H 134 H Calcium Phosphorus Magnesium Iron TIBC C-Reactive Protein Total Protein Albumin Vitamin B12 Crossmatch 08/03/18 08/03/18 08/04/18 14:18 21:44 00:19 WBC RBC Hgb Hct MCH RDW Plt Count Lymph % (Auto) [place] % (Auto) Lymph # [place] # Seg Neutrophils % Seg Neuts % (Manual) Lymphocytes % (Manual) Monocytes % (Manual) Seg Neutrophils # Seg Neutrophils # Man Lymphocytes # (Manual) Monocytes # (Manual) APTT POC ABG pO2 Sodium Potassium Chloride Carbon Dioxide BUN Creatinine Glucose POC Glucose 199 H 189 H 162 H Calcium Phosphorus Magnesium Iron TIBC C-Reactive Protein Total Protein Albumin Vitamin B12 Crossmatch 08/04/18 08/04/18 08/04/18 04:07 04:15 04:15 WBC 11.1 H RBC 2.93 L Hgb 8.5 L Hct 25.7 L MCH RDW 20.5 H Plt Count Lymph % (Auto) 7.7 L [place] % (Auto) 10.3 H Lymph # 0.9 L [place] # 1.1 H Seg Neutrophils % 80.6 H Seg Neuts % (Manual) Lymphocytes % (Manual) Monocytes % (Manual) Seg Neutrophils # 8.9 H Seg Neutrophils # Man Lymphocytes # (Manual) Monocytes # (Manual) APTT POC ABG pO2 Sodium Potassium Chloride Carbon Dioxide BUN 89 H Creatinine 2.3 H Glucose 196 H POC Glucose 211 H Calcium 7.7 L Phosphorus 6.60 H Magnesium 2.50 H Iron TIBC C-Reactive Protein Total Protein Albumin Vitamin B12 Crossmatch 08/04/18 08/04/18 08/04/18 07:56 10:17 14:06 WBC RBC Hgb Hct MCH RDW Plt Count Lymph % (Auto) [place] % (Auto) Lymph # [place] # Seg Neutrophils % Seg Neuts % (Manual) Lymphocytes % (Manual) Monocytes % (Manual) Seg Neutrophils # Seg Neutrophils # Man Lymphocytes # (Manual) Monocytes # (Manual) APTT POC ABG pO2 Sodium Potassium Chloride Carbon Dioxide BUN Creatinine Glucose POC Glucose 229 H 221 H 182 H Calcium Phosphorus Magnesium Iron TIBC C-Reactive Protein Total Protein Albumin Vitamin B12 Crossmatch 08/04/18 08/05/18 08/05/18 20:10 01:26 05:23 WBC RBC Hgb Hct MCH RDW Plt Count Lymph % (Auto) [place] % (Auto) Lymph # [place] # Seg Neutrophils % Seg Neuts % (Manual) Lymphocytes % (Manual) Monocytes % (Manual) Seg Neutrophils # Seg Neutrophils # Man Lymphocytes # (Manual) Monocytes # (Manual) APTT POC ABG pO2 Sodium 147 H Potassium Chloride 111.9 H Carbon Dioxide BUN 94 H Creatinine 2.1 H Glucose 158 H POC Glucose 201 H 170 H Calcium 7.8 L Phosphorus Magnesium 2.40 H Iron TIBC C-Reactive Protein Total Protein Albumin Vitamin B12 Crossmatch 08/05/18 08/05/18 08/05/18 05:23 05:42 08:21 WBC RBC 2.96 L Hgb 8.5 L Hct 26.0 L MCH RDW 19.9 H Plt Count Lymph % (Auto) [place] % (Auto) Lymph # [place] # Seg Neutrophils % Seg Neuts % (Manual) 78.0 H Lymphocytes % (Manual) 11.0 L Monocytes % (Manual) 10.0 H Seg Neutrophils # Seg Neutrophils # Man Lymphocytes # (Manual) 1.0 L Monocytes # (Manual) 0.9 H APTT POC ABG pO2 Sodium Potassium Chloride Carbon Dioxide BUN Creatinine Glucose POC Glucose 166 H 178 H Calcium Phosphorus Magnesium Iron TIBC C-Reactive Protein Total Protein Albumin Vitamin B12 Crossmatch 08/05/18 08/05/18 08/05/18 11:11 15:53 20:15 WBC RBC Hgb Hct MCH RDW Plt Count Lymph % (Auto) [place] % (Auto) Lymph # [place] # Seg Neutrophils % Seg Neuts % (Manual) Lymphocytes % (Manual) Monocytes % (Manual) Seg Neutrophils # Seg Neutrophils # Man Lymphocytes # (Manual) Monocytes # (Manual) APTT POC ABG pO2 Sodium Potassium Chloride Carbon Dioxide BUN Creatinine Glucose POC Glucose 200 H 157 H 194 H Calcium Phosphorus Magnesium Iron TIBC C-Reactive Protein Total Protein Albumin Vitamin B12 Crossmatch 08/05/18 08/06/18 08/06/18 22:32 04:37 04:41 WBC RBC Hgb Hct MCH RDW Plt Count Lymph % (Auto) [place] % (Auto) Lymph # [place] # Seg Neutrophils % Seg Neuts % (Manual) Lymphocytes % (Manual) Monocytes % (Manual) Seg Neutrophils # Seg Neutrophils # Man Lymphocytes # (Manual) Monocytes # (Manual) APTT POC ABG pO2 Sodium 150 H Potassium Chloride 114.5 H Carbon Dioxide BUN 89 H Creatinine 1.9 H Glucose 196 H POC Glucose 209 H 207 H Calcium 8.3 L Phosphorus Magnesium Iron TIBC C-Reactive Protein Total Protein Albumin Vitamin B12 Crossmatch 08/06/18 08/06/18 08/06/18 04:41 07:42 11:59 WBC RBC 3.09 L Hgb 8.7 L Hct 26.9 L MCH RDW 19.7 H Plt Count Lymph % (Auto) [place] % (Auto) Lymph # [place] # Seg Neutrophils % Seg Neuts % (Manual) 81.0 H Lymphocytes % (Manual) 12.0 L Monocytes % (Manual) Seg Neutrophils # Seg Neutrophils # Man Lymphocytes # (Manual) 0.9 L Monocytes # (Manual) APTT POC ABG pO2 Sodium Potassium Chloride Carbon Dioxide BUN Creatinine Glucose POC Glucose 178 H 195 H Calcium Phosphorus Magnesium Iron TIBC C-Reactive Protein Total Protein Albumin Vitamin B12 Crossmatch 08/06/18 08/06/18 08/07/18 14:30 21:41 02:30 WBC RBC Hgb Hct MCH RDW Plt Count Lymph % (Auto) [place] % (Auto) Lymph # [place] # Seg Neutrophils % Seg Neuts % (Manual) Lymphocytes % (Manual) Monocytes % (Manual) Seg Neutrophils # Seg Neutrophils # Man Lymphocytes # (Manual) Monocytes # (Manual) APTT POC ABG pO2 Sodium Potassium Chloride Carbon Dioxide BUN Creatinine Glucose POC Glucose 184 H 181 H 202 H Calcium Phosphorus Magnesium Iron TIBC C-Reactive Protein Total Protein Albumin Vitamin B12 Crossmatch 08/07/18 08/07/18 08/07/18 04:00 04:00 04:00 WBC RBC Hgb Hct MCH RDW 20.0 H Plt Count Lymph % (Auto) [place] % (Auto) Lymph # [place] # Seg Neutrophils % Seg Neuts % (Manual) 78.0 H Lymphocytes % (Manual) 10.0 L Monocytes % (Manual) Seg Neutrophils # Seg Neutrophils # Man Lymphocytes # (Manual) 0.9 L Monocytes # (Manual) APTT POC ABG pO2 Sodium 152 H Potassium Chloride 113.2 H Carbon Dioxide BUN 81 H Creatinine 1.7 H Glucose 203 H POC Glucose Calcium Phosphorus Magnesium Iron 17 L TIBC 122 L C-Reactive Protein Total Protein Albumin 2.3 L Vitamin B12 1012 H Crossmatch 08/07/18 08/07/18 08/07/18 06:29 07:19 11:00 WBC RBC Hgb Hct MCH RDW Plt Count Lymph % (Auto) [place] % (Auto) Lymph # [place] # Seg Neutrophils % Seg Neuts % (Manual) Lymphocytes % (Manual) Monocytes % (Manual) Seg Neutrophils # Seg Neutrophils # Man Lymphocytes # (Manual) Monocytes # (Manual) APTT POC ABG pO2 Sodium Potassium Chloride Carbon Dioxide BUN Creatinine Glucose POC Glucose 226 H 240 H 174 H Calcium Phosphorus Magnesium Iron TIBC C-Reactive Protein Total Protein Albumin Vitamin B12 Crossmatch 08/07/18 08/07/18 08/08/18 15:43 18:09 02:13 WBC RBC Hgb Hct MCH RDW Plt Count Lymph % (Auto) [place] % (Auto) Lymph # [place] # Seg Neutrophils % Seg Neuts % (Manual) Lymphocytes % (Manual) Monocytes % (Manual) Seg Neutrophils # Seg Neutrophils # Man Lymphocytes # (Manual) Monocytes # (Manual) APTT POC ABG pO2 Sodium Potassium Chloride Carbon Dioxide BUN Creatinine Glucose POC Glucose 201 H 210 H 229 H Calcium Phosphorus Magnesium Iron TIBC C-Reactive Protein Total Protein Albumin Vitamin B12 Crossmatch 08/08/18 08/08/18 08/08/18 08:00 10:42 14:34 WBC RBC Hgb Hct MCH RDW Plt Count Lymph % (Auto) [place] % (Auto) Lymph # [place] # Seg Neutrophils % Seg Neuts % (Manual) Lymphocytes % (Manual) Monocytes % (Manual) Seg Neutrophils # Seg Neutrophils # Man Lymphocytes # (Manual) Monocytes # (Manual) APTT POC ABG pO2 Sodium Potassium Chloride Carbon Dioxide BUN Creatinine Glucose POC Glucose 254 H 186 H 171 H Calcium Phosphorus Magnesium Iron TIBC C-Reactive Protein Total Protein Albumin Vitamin B12 Crossmatch 08/08/18 08/08/18 08/08/18 19:59 23:04 Unknown WBC RBC Hgb Hct MCH RDW Plt Count Lymph % (Auto) [place] % (Auto) Lymph # [place] # Seg Neutrophils % Seg Neuts % (Manual) Lymphocytes % (Manual) Monocytes % (Manual) Seg Neutrophils # Seg Neutrophils # Man Lymphocytes # (Manual) Monocytes # (Manual) APTT POC ABG pO2 Sodium 153 H Potassium Chloride 115.1 H Carbon Dioxide BUN 74 H Creatinine 1.4 H Glucose 255 H POC Glucose 203 H 233 H Calcium Phosphorus 2.40 L Magnesium Iron TIBC C-Reactive Protein Total Protein Albumin Vitamin B12 Crossmatch 08/09/18 08/09/18 08/09/18 02:27 05:30 05:30 WBC RBC 3.31 L Hgb 9.6 L Hct 29.0 L MCH RDW 19.6 H Plt Count Lymph % (Auto) [place] % (Auto) Lymph # [place] # Seg Neutrophils % Seg Neuts % (Manual) Lymphocytes % (Manual) Monocytes % (Manual) Seg Neutrophils # Seg Neutrophils # Man Lymphocytes # (Manual) Monocytes # (Manual) APTT POC ABG pO2 Sodium 150 H Potassium Chloride 112.8 H Carbon Dioxide 21 L BUN 72 H Creatinine 1.6 H Glucose 252 H POC Glucose 264 H Calcium Phosphorus Magnesium 1.60 L Iron TIBC C-Reactive Protein Total Protein Albumin 2.6 L Vitamin B12 Crossmatch 08/09/18 08/09/18 08/09/18 07:50 10:14 10:43 WBC RBC Hgb Hct MCH RDW Plt Count Lymph % (Auto) [place] % (Auto) Lymph # [place] # Seg Neutrophils % Seg Neuts % (Manual) Lymphocytes % (Manual) Monocytes % (Manual) Seg Neutrophils # Seg Neutrophils # Man Lymphocytes # (Manual) Monocytes # (Manual) APTT POC ABG pO2 Sodium Potassium Chloride Carbon Dioxide BUN Creatinine Glucose POC Glucose 258 H 221 H Calcium Phosphorus Magnesium 1.40 L Iron TIBC C-Reactive Protein Total Protein Albumin Vitamin B12 Crossmatch 08/09/18 11:31 WBC RBC Hgb Hct MCH RDW Plt Count Lymph % (Auto) [place] % (Auto) Lymph # [place] # Seg Neutrophils % Seg Neuts % (Manual) Lymphocytes % (Manual) Monocytes % (Manual) Seg Neutrophils # Seg Neutrophils # Man Lymphocytes # (Manual) Monocytes # (Manual) APTT POC ABG pO2 Sodium Potassium Chloride Carbon Dioxide BUN Creatinine Glucose POC Glucose 240 H Calcium Phosphorus Magnesium Iron TIBC C-Reactive Protein Total Protein Albumin Vitamin B12 Crossmatch Chest x-ray: report reviewed, image reviewed
--- NOTE | 2018-08-09 13:30 | Progress Note ---
Assessment and Plan POD # 8 Pt status quo. increased po cl liq caloric intake Abd soft. dressings dry surgically stable advance to full liq ADA, renal diet as iron Selected Entries 08/09/18 07:46 Temperature 97.6 F Pulse Rate 92 H Blood Pressure 210/108 Laboratory Tests 08/09/18 08/09/18 05:30 05:30 WBC 6.7 Hgb 9.6 L Hct 29.0 L Sodium 150 H Potassium 3.8 Chloride 112.8 H BUN 72 H Creatinine 1.6 H Glucose 252 H Objective Vital Signs - 12hr 08/09/18 08/09/18 08/09/18 07:46 08:39 10:00 Temperature 97.6 F Pulse Rate 92 H 92 H Pulse Rate [ Anterior Bilateral Throughout] Pulse Rate [ Anterior Bilateral] Pulse Rate [ 18 L Right Radial] Respiratory 20 18 Rate Respiratory Rate [Anterior Bilateral Throughout] Respiratory Rate [Anterior Bilateral] Blood Pressure 210/108 210/108 O2 Sat by Pulse 96 98 Oximetry 08/09/18 08/09/18 10:05 10:31 Temperature Pulse Rate Pulse Rate [ 92 H Anterior Bilateral Throughout] Pulse Rate [ 75 Anterior Bilateral] Pulse Rate [ Right Radial] Respiratory Rate Respiratory 18 Rate [Anterior Bilateral Throughout] Respiratory 16 Rate [Anterior Bilateral] Blood Pressure 173/87 O2 Sat by Pulse Oximetry - Labs 08/09/18 05:30 08/09/18 05:30 Diabetes panel 08/09/18 Range/Units 05:30 Sodium 150 H (137-145) mmol/L Potassium 3.8 (3.6-5.0) mmol/L Chloride 112.8 H (98-107) mmol/L Carbon Dioxide 21 L (22-30) mmol/L BUN 72 H (7-17) mg/dL Creatinine 1.6 H (0.7-1.2) mg/dL Glucose 252 H (65-100) mg/dL Calcium 9.0 (8.4-10.2) mg/dL AST 23 (5-40) units/L ALT 14 (7-56) units/L Alkaline Phosphatase 127 (35-129) units/L Total Protein 6.8 (6.3-8.2) g/dL Albumin 2.6 L (3.9-5) g/dL Calcium panel 08/09/18 08/09/18 Range/Units 05:30 10:43 Calcium 9.0 (8.4-10.2) mg/dL Phosphorus 3.00 D 2.80 (2.5-4.5) mg/dL Albumin 2.6 L (3.9-5) g/dL Pituitary panel 08/09/18 Range/Units 05:30 Sodium 150 H (137-145) mmol/L Potassium 3.8 (3.6-5.0) mmol/L Chloride 112.8 H (98-107) mmol/L Carbon Dioxide 21 L (22-30) mmol/L BUN 72 H (7-17) mg/dL Creatinine 1.6 H (0.7-1.2) mg/dL Glucose 252 H (65-100) mg/dL Calcium 9.0 (8.4-10.2) mg/dL Adrenal panel 08/09/18 Range/Units 05:30 Sodium 150 H (137-145) mmol/L Potassium 3.8 (3.6-5.0) mmol/L Chloride 112.8 H (98-107) mmol/L Carbon Dioxide 21 L (22-30) mmol/L BUN 72 H (7-17) mg/dL Creatinine 1.6 H (0.7-1.2) mg/dL Glucose 252 H (65-100) mg/dL Calcium 9.0 (8.4-10.2) mg/dL Total Bilirubin 0.60 (0.1-1.2) mg/dL AST 23 (5-40) units/L ALT 14 (7-56) units/L Alkaline Phosphatase 127 (35-129) units/L Total Protein 6.8 (6.3-8.2) g/dL Albumin 2.6 L (3.9-5) g/dL
--- NOTE | 2018-08-09 13:56 | Progress Note ---
Assessment and Plan Assessment and plan: Patient is 87 yo woman with a history of DM, CHF and hypertension who presents to [facility] ED via EMS with AMS, falling at home, feeling hot, blood glucose was in the 40s and she was given oral glucose by EMS prior to arrival. Associated with falling is diaphoresis, lose of appetite, n/v, sob x 1 day. This is patient 3rd fall at home. She did complain of right upper quadrant, sharp intermittent severe, aggravated by certain movement, relieved by different positions. She was found to have bowel perforation. * CTAP with IV contrast IMPRESSION: Extensive inflammatory changes involving the cecum and proximal ascending colon extending posteriorly with pericolonic stranding. Diagnostic consideration would include appendicitis with perforation presuming the patient still has her appendix. The other possibility is severe diverticulitis with probable perforation. Extensive colonic diverticulosis. Uncomplicated cysts in both kidneys. Hysterectomy. Multilevel disc degeneration in the lumbar spine. Incidental note is made of a crescent-shaped area of mural thrombus at the thoracoabdominal junction involving the aorta. A remote dissection cannot entirely be excluded. * CTA chest pains IMPRESSION: 1. No evidence of pulmonary embolism. 2. Mild cardiomegaly 3. Lingular subsegmental atelectasis versus parenchymal scar 4. 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 No evidence of acute infarct or intracranial hemorrhage. 2. White matter lucency consistent with chronic microvascular ischemic disease. * pCXR IMPRESSION: Subpleural effusion and cardiomegaly * 07/25/[address] abd/pelvis without contrast FINDINGS: Small layering pleural effusions have developed measuring up to 1 cm in thickness. Heart size is stable at the upper limits of normal. The visualized lung bases are adequately aerated. The masslike lesion in the ascending colon appears stable in size and contour. There is no evidence for obstruction or leakage of contrast. There are scattered diverticula in the proximal colon. Mild inflammatory changes adjacent to this masslike lesion have decreased by 20% since the previous exam. It is unclear if this represents a colon mass or is associated with diverticulitis. I favor a colon mass. The liver, biliary system, pancreas, spleen, kidneys and adrenal glands remain unremarkable. The pelvic viscera are within normal limits. Hysterectomy changes are noted. IMPRESSION: Inflammatory changes adjacent to the right colon mass or diverticulitis has improved slightly. Overall, no overwhelming change. No new acute process. New small layering pleural effusions. * 08/01/[address] Wooten Procedure: Exploratory laparotomy, lysis of extensive adhesion, right hemicolectomy with ileocolic anastomosis "Findings: A very large mass extending outside of the colon into the retroperitoneum in the area of the hepatic flexure. Also, extensive adhesions involving the entire omentum as well as pelvis including small bowel deep in the pelvis. Technically difficult and challenging case....Final Impression: Stage IV cancer with extension into the surrounding fat and retroperitoneum. 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 TPN was started on 07/23/[address] 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 Follow-up on current diagnosis of bowel perforation. Overnight uneventful. Patient denies any chest pain, shortness breath, nausea/vomiting or severe headaches. Imaging, nursing note, chart, labs and old chart reviewed. Discussed with patient. Hospitalist Physical - Physical exam Narrative exam: Gen: WDWN, NAD, Awake, Alert, Orientated x 1 HEENT: NCAT, EOMI, PERRL, OP Clear Neck: supple, no adenopathy, no thyromegaly, no JVD CVS/Heart: RRR, normal S1S2, pulses present bilaterally Chest/Lungs: diminished bs bilateral, Symmetrical chest expansion, good air entry bilaterally GI/Abdomen: soft diffusely tender, good bowel sounds, no guarding or rebound /Bladder: no suprapubic tenderness, no CVA or paraspinal tenderness Extermity/Skin: no c/c/e, no obvious rash MSK: FROM x 4 Neuro: CN 2-12 grossly intact, no new focal deficits Psych: calm - Constitutional Vitals: Temp Pulse Resp BP Pulse Ox 97.6 F 75 16 173/87 98 08/09/18 07:46 08/09/18 10:31 08/09/18 10:31 08/09/18 10:05 08/09/18 10:00 General appearance: Present: no acute distress, well-nourished Results - Labs CBC & Chem 7: 08/09/18 05:30 08/09/18 05:30 Labs: Laboratory Last Values WBC 6.7 K/mm3 (4.5-11.0) 08/09/18 05:30 RBC 3.31 M/mm3 (3.65-5.03) L 08/09/18 05:30 Hgb 9.6 gm/dl (10.1-14.3) L 08/09/18 05:30 Hct 29.0 % (30.3-42.9) L 08/09/18 05:30 MCV 88 fl (79-97) 08/09/18 05:30 MCH 29 pg (28-32) 08/09/18 05:30 MCHC 33 % (30-34) 08/09/18 05:30 RDW 19.6 % (13.2-15.2) H 08/09/18 05:30 Plt Count 216 K/mm3 (140-440) 08/09/18 05:30 Lymph % (Auto) 7.7 % (13.4-35.0) L 08/04/18 04:15 Bond % (Auto) Hr Director 08/06/18 04:41 Eos % (Auto) 1.0 % (0.0-4.3) 08/04/18 04:15 Baso % (Auto) 0.4 % (0.0-1.8) 08/04/18 04:15 Lymph # 0.9 K/mm3 (1.2-5.4) L 08/04/18 04:15 Bond # 1.1 K/mm3 (0.0-0.8) H 08/04/18 04:15 Eos # 0.1 K/mm3 (0.0-0.4) 08/04/18 04:15 Baso # 0.0 K/mm3 (0.0-0.1) 08/04/18 04:15 Add Manual Diff Complete 08/07/18 04:00 Total Counted 100 08/07/18 04:00 Seg Neutrophils % 80.6 % (40.0-70.0) H 08/04/18 04:15 Seg Neuts % (Manual) 78.0 % (40.0-70.0) H 08/07/18 04:00 Band Neutrophils % 2.0 % 08/07/18 04:00 Lymphocytes % (Manual) 10.0 % (13.4-35.0) L 08/07/18 04:00 Reactive Lymphs % (Man) 0 % 08/07/18 04:00 Monocytes % (Manual) 7.0 % (0.0-7.3) 08/07/18 04:00 Eosinophils % (Manual) 3.0 % (0.0-4.3) 08/07/18 04:00 Basophils % (Manual) 0 % (0.0-1.8) 08/07/18 04:00 Metamyelocytes % 0 % 08/07/18 04:00 Myelocytes % 0 % 08/07/18 04:00 Promyelocytes % 0 % 08/07/18 04:00 Blast Cells % 0 % 08/07/18 04:00 Nucleated RBC % Not Reportable 08/07/18 04:00 Seg Neutrophils # 8.9 K/mm3 (1.8-7.7) H 08/04/18 04:15 Seg Neutrophils # Man 7.1 K/mm3 (1.8-7.7) 08/07/18 04:00 Band Neutrophils # 0.2 K/mm3 08/07/18 04:00 Lymphocytes # (Manual) 0.9 K/mm3 (1.2-5.4) L 08/07/18 04:00 Abs React Lymphs (Man) 0.0 K/mm3 08/07/18 04:00 Monocytes # (Manual) 0.6 K/mm3 (0.0-0.8) 08/07/18 04:00 Eosinophils # (Manual) 0.3 K/mm3 (0.0-0.4) 08/07/18 04:00 Basophils # (Manual) 0.0 K/mm3 (0.0-0.1) 08/07/18 04:00 Metamyelocytes # 0.0 K/mm3 08/07/18 04:00 Myelocytes # 0.0 K/mm3 08/07/18 04:00 Promyelocytes # 0.0 K/mm3 08/07/18 04:00 Blast Cells # 0.0 K/mm3 08/07/18 04:00 WBC Morphology Not Reportable 08/07/18 04:00 Hypersegmented Neuts Not Reportable 08/07/18 04:00 Hyposegmented Neuts Not Reportable 08/07/18 04:00 Hypogranular Neuts Not Reportable 08/07/18 04:00 Smudge Cells Not Reportable 08/07/18 04:00 Toxic Granulation Not Reportable 08/07/18 04:00 Toxic Vacuolation Not Reportable 08/07/18 04:00 Dohle Bodies Not Reportable 08/07/18 04:00 Pelger-Huet Anomaly Not Reportable 08/07/18 04:00 Richard Rods Not Reportable 08/07/18 04:00 Platelet Estimate Consistent w auto 08/07/18 04:00 Clumped Platelets Not Reportable 08/07/18 04:00 Plt Clumps, EDTA Not Reportable 08/07/18 04:00 Large Platelets Not Reportable 08/07/18 04:00 Giant Platelets Not Reportable 08/07/18 04:00 Platelet Satelliting Not Reportable 08/07/18 04:00 Plt Morphology Comment Not Reportable 08/07/18 04:00 RBC Morphology Not Reportable 08/07/18 04:00 Dimorphic RBCs Not Reportable 08/07/18 04:00 Polychromasia Few 08/07/18 04:00 Hypochromasia Few 08/07/18 04:00 Poikilocytosis 1+ 08/07/18 04:00 Anisocytosis 1+ 08/07/18 04:00 Microcytosis Not Reportable 08/07/18 04:00 Macrocytosis Not Reportable 08/07/18 04:00 Spherocytes Not Reportable 08/07/18 04:00 Pappenheimer Bodies Not Reportable 08/07/18 04:00 Sickle Cells Not Reportable 08/07/18 04:00 Target Cells Few 08/07/18 04:00 Tear Drop Cells Not Reportable 08/07/18 04:00 Ovalocytes Not Reportable 08/07/18 04:00 Helmet Cells Not Reportable 08/07/18 04:00 Varela-Balta Bodies Not Reportable 08/07/18 04:00 [place] Rings Not Reportable 08/07/18 04:00 [place] Cells Not Reportable 08/07/18 04:00 Bite Cells Not Reportable 08/07/18 04:00 Crenated Cell Not Reportable 08/07/18 04:00 Elliptocytes Not Reportable 08/07/18 04:00 Acanthocytes (Spur) Not Reportable 08/07/18 04:00 Rouleaux Not Reportable 08/07/18 04:00 Hemoglobin C Crystals Not Reportable 08/07/18 04:00 Schistocytes Not Reportable 08/07/18 04:00 Malaria parasites Not Reportable 08/07/18 04:00 Michi Bodies Not Reportable 08/07/18 04:00 Hem Pathologist Commnt No 08/07/18 04:00 PT 14.5 Sec. (12.2-14.9) 07/28/18 05:27 INR 1.09 (0.87-1.13) 07/28/18 05:27 APTT 23.2 Sec. (24.2-36.6) L 07/18/18 20:48 POC ABG pH 7.409 (7.35-7.45) 08/02/18 09:56 POC ABG pCO2 38.5 (35-45) 08/02/18 09:56 POC ABG pO2 70 (80-105) L 08/02/18 09:56 POC ABG HCO3 24.3 08/02/18 09:56 POC ABG Total CO2 25 08/02/18 09:56 POC ABG O2 Sat 94 08/02/18 09:56 POC ABG Base Excess 0 08/02/18 09:56 FiO2 40 % 08/02/18 09:56 Sodium 150 mmol/L (137-145) H 08/09/18 05:30 Potassium 3.8 mmol/L (3.6-5.0) 08/09/18 05:30 Chloride 112.8 mmol/L (98-107) H 08/09/18 05:30 Carbon Dioxide 21 mmol/L (22-30) L 08/09/18 05:30 Anion Gap 20 mmol/L 08/09/18 05:30 BUN 72 mg/dL (7-17) H 08/09/18 05:30 Creatinine 1.6 mg/dL (0.7-1.2) H 08/09/18 05:30 Estimated GFR 37 ml/min 08/09/18 05:30 BUN/Creatinine Ratio 45 % 08/09/18 05:30 Glucose 252 mg/dL (65-100) H 08/09/18 05:30 POC Glucose 240 (70-105) H 08/09/18 11:31 Lactic Acid 1.10 mmol/L (0.7-2.0) 07/19/18 17:04 Calcium 9.0 mg/dL (8.4-10.2) 08/09/18 05:30 Phosphorus 2.80 mg/dL (2.5-4.5) 08/09/18 10:43 Magnesium 1.40 mg/dL (1.7-2.3) L 08/09/18 10:43 Iron 17 ug/dL (37-170) L 08/07/18 04:00 TIBC 122 mcg/dL (250-450) L 08/07/18 04:00 Ferritin 205.8 ng/mL (13.0-400.0) 08/07/18 04:00 Total Bilirubin 0.60 mg/dL (0.1-1.2) 08/09/18 05:30 AST 23 units/L (5-40) 08/09/18 05:30 ALT 14 units/L (7-56) 08/09/18 05:30 Alkaline Phosphatase 127 units/L (35-129) 08/09/18 05:30 Total Creatine Kinase 48 units/L (30-135) 07/18/18 20:48 CK-MB (CK-2) < 1.0 ng/mL (0.0-4.0) 07/18/18 20:48 CK-MB (CK-2) Rel Index 2.0 (0-4) 07/18/18 20:48 Troponin T 0.025 ng/mL (0.00-0.029) 07/18/18 20:48 C-Reactive Protein 4.30 mg/dL (0.00-1.30) H 07/25/18 03:58 NT-Pro-B Natriuret Pep 462.4 pg/mL (0-900) 07/18/18 20:48 Total Protein 6.8 g/dL (6.3-8.2) 08/09/18 05:30 Albumin 2.6 g/dL (3.9-5) L 08/09/18 05:30 Albumin/Globulin Ratio 0.6 % 08/09/18 05:30 Carcinoembryonic Ag See scanned result 07/22/18 13:47 Vitamin B12 1012 pg/mL (211-911) H 08/07/18 04:00 Folate 12.21 ng/mL (7.3-26.0) 08/07/18 04:00 Urine Color Yellow (Yellow) 07/18/18 21:49 Urine Turbidity Clear (Clear) 07/18/18 21:49 Urine pH 5.0 (5.0-7.0) 07/18/18 21:49 Ur Specific [place] 1.019 (1.003-1.030) 07/18/18 21:49 Urine Protein <15 mg/dl mg/dL (Negative) 07/18/18 21:49 Urine Glucose (UA) Neg mg/dL (Negative) 07/18/18 21:49 Urine Ketones Neg mg/dL (Negative) 07/18/18 21:49 Urine Blood Neg (Negative) 07/18/18 21:49 Urine Nitrite Neg (Negative) 07/18/18 21:49 Urine Bilirubin Neg (Negative) 07/18/18 21:49 Urine Urobilinogen 4.0 mg/dL (<2.0) 07/18/18 21:49 Ur Leukocyte Esterase Neg (Negative) 07/18/18 21:49 Urine WBC (Auto) 2.0 /HPF (0.0-6.0) 07/18/18 21:49 Urine RBC (Auto) < 1.0 /HPF (0.0-6.0) 07/18/18 21:49 U Epithel Cells (Auto) 3.0 /HPF (0-13.0) 07/18/18 21:49 Urine Mucus Few /HPF 07/18/18 21:49 Blood Type B POSITIVE 08/04/18 16:04 Antibody Screen Negative 08/04/18 16:04 Crossmatch See Detail 08/01/18 07:18 Nutrition/Malnutrition Assess - Dietary Evaluation Nutrition/Malnutrition Findings: Nutrition Notes Start: 07/22/18 14:00 Freq: Status: Active Protocol: Document 08/09/18 11:10 TW (Rec: 08/09/18 11:14 TW [id number]) Co-Sign 08/09/18 11:10 LP Nutrition Notes Initial or Follow up Reassessment Current Diagnosis Diabetes Sepsis Hypertension Heart Failure Other Pertinent Diagnosis Stage IV CA s/p exp lap with ( R) colectomy Current Diet CPN at 65mL/hr + Clear liquid Labs/Tests Na 150 BUN 72 Cr: 1.6 B Pertinent Medications Reviewed. Height 5 ft 5 in Weight 98.3 kg [place] Body Weight (lbs) 125.0 BMI 36.0 Subjective/Other Information Day 18 CPN. Diet advanced to clear liquids. Per Pt family member, pt is drinking less than half of her clear liquids . TPN running at 65 ml/hr. Percent of energy/protein needs met: 63%/100% Burn Absent Trauma Absent #1 Nutrition Diagnosis Altered GI function Diagnosis Progress(for reassessment Continues documentation) Is patient on ventilator? No Is Patient Ambulatory and/or Out of Bed No REE-([facility]-confined to bed) 1715.724 Kcal/Kg value to use for calculation 13 Approximate Energy Requirements Using 1278 kcal/Kg Calculation Used for Recommendations Kcal/kg Additional Notes Pro needs 1-1.2g/kg adjBW: 78- 93g/day Fluid needs 1.5L/day Nutrition Intervention Change Diet Order: CPN + Clear liquid Nutrition Support: CPN at 65mL/hr: MVI, MTE, 9 mEq Mg, Osmolarity: 1241 Kcal 1,077 Protein (gm) 78 Carbohydrates (gm) 225 Fat (gm) 0 Fluid (mL) 1,560 Fiber (gm) 0 Goal #1 PN to meet 80-100% nutrient needs Anticipated Discharge Needs: Unable to identify at this time Follow-Up By: 08/10/18 Additional Comments Labs in am: BMP, Mg, Phos
[2018-08-09] MEDS: APRESOLINE IV SCH ×2 (14:20→20:18)
[2018-08-09] MEDS: NORVASC PO SCH (15:36)
[2018-08-09] MEDS: MORPHINE IV PRN ×2 (15:40→21:52)
[2018-08-09] MEDS ORDERED: TPN ADULT 1,560 ML IV SCH (20:00)
[2018-08-10] MEDS: HumaLOG SUB-Q SCH ×6 (02:53→23:37)
[2018-08-10] MEDS: APRESOLINE IV SCH ×4 (02:53→20:45)
[2018-08-10 05:26] LABS: Hematocrit 27.7 % (30.3-42.9); Hemoglobin 8.7 gm/dl (10.1-14.3); Mean Corpuscular HGB Conc 32 % (30-34); Mean Corpuscular Volume 87 fl (79-97); Platelet Count 207 K/mm3 (140-440); Red Blood Count 3.18 M/mm3 (3.65-5.03); Red Cell Distribution Width 19.9 % (13.2-15.2)
[2018-08-10 05:48] LABS: Albumin 2.6 g/dL (3.9-5); Calcium 8.7 mg/dL (8.4-10.2)
[2018-08-10] MEDS: DUONEB *Not for PRN Use IH SCH ×3 (07:51→20:33)
--- NOTE | 2018-08-10 08:41 | Hem/Onc Progress Note ---
Assessment and Plan 1. T4a N0 Mx adenocarcinoma.bowel perforation, hence labeled as stage 4. 2. A 12 lymph nodes were negative. 3. History of diabetes. 4. History of hypertension. 5. History of fall. 6. History of metabolic encephalopathy. 7. 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 8. History of respiratory failure. 9. History of renal impairment. 10. As per the nursing staff, the patient is DNR. The patient received blood transfusion for anemia. 11. The patient is elderly. 12. As per the information, the patient had bowel perforation, hence labeled as stage 4. 13. The patient was intubated at one time during this admission. 14. I will follow the patient. d/w dr meza d/w family pt was using a walker before coming if pts performance improves - willl look into immune based or targetted therapy abdo drain+ 08/08 - CEA 5.6 08/09 - pt on TPN - will await improvement in pts performance status to decide options 08/10 - pt eating placement being looked into - Patient Problems (1) Colon cancer Current Visit: Yes Status: Acute Subjective Date of service: 08/10/18 Principal diagnosis: colon ca Interval history: pt on liquid diet - has TPN Objective - Constitutional Vitals: Last Vital Signs Temp 98.5 F 08/10/18 07:39 Pulse 85 08/10/18 08:20 Resp 20 08/10/18 07:39 BP 177/83 08/10/18 08:20 Pulse Ox 99 08/10/18 07:39 Pain Intensity (0-10): denies any pain General appearance: no acute distress Performance status: 4-completely disabled - EENT Eyes: EOM intact ENT: clear oral mucosa Lymph node exam: negative cervical - Respiratory Respiratory effort: Positive: normal Respiratory: bilateral: CTA, diminished - Cardiovascular Heart Sounds: Present: S1 & S2 Extremities: No edema - Gastrointestinal General gastrointestinal: Present: soft Rectal Exam: deferred - Genitourinary Female genitourinary: Present: deferred - Integumentary Integumentary: warm - Musculoskeletal Musculoskeletal: generalized weakness - Neurologic Neurologic: moves all extremities - Labs Lab Results: Laboratory Results - last 24 hr 08/09/18 08/09/18 08/09/18 10:14 10:43 11:31 WBC RBC Hgb Hct MCV MCH MCHC RDW Plt Count Sodium Potassium Chloride Carbon Dioxide Anion Gap BUN Creatinine Estimated GFR BUN/Creatinine Ratio Glucose POC Glucose 221 H 240 H Calcium Phosphorus 2.80 Magnesium 1.40 L Total Bilirubin AST ALT Alkaline Phosphatase Total Protein Albumin Albumin/Globulin Ratio 08/09/18 08/09/18 08/09/18 14:26 19:06 22:16 WBC RBC Hgb Hct MCV MCH MCHC RDW Plt Count Sodium Potassium Chloride Carbon Dioxide Anion Gap BUN Creatinine Estimated GFR BUN/Creatinine Ratio Glucose POC Glucose 242 H 198 H 188 H Calcium Phosphorus Magnesium Total Bilirubin AST ALT Alkaline Phosphatase Total Protein Albumin Albumin/Globulin Ratio 08/10/18 08/10/18 08/10/18 02:39 04:08 04:08 WBC 7.5 RBC 3.18 L Hgb 8.7 L Hct 27.7 L MCV 87 MCH 28 MCHC 32 RDW 19.9 H Plt Count 207 Sodium 147 H Potassium 3.3 L Chloride 110.0 H Carbon Dioxide 23 Anion Gap 17 BUN 65 H Creatinine 1.3 H Estimated GFR 47 BUN/Creatinine Ratio 50 Glucose 199 H POC Glucose 196 H Calcium 8.7 Phosphorus Magnesium Total Bilirubin 0.40 AST 20 ALT 14 Alkaline Phosphatase 147 H Total Protein 6.3 Albumin 2.6 L Albumin/Globulin Ratio 0.7 08/10/18 07:14 WBC RBC Hgb Hct MCV MCH MCHC RDW Plt Count Sodium Potassium Chloride Carbon Dioxide Anion Gap BUN Creatinine Estimated GFR BUN/Creatinine Ratio Glucose POC Glucose 194 H Calcium Phosphorus Magnesium Total Bilirubin AST ALT Alkaline Phosphatase Total Protein Albumin Albumin/Globulin Ratio Medications & Allergies - Medications Allergies/Adverse Reactions: Allergies No Known Allergies Allergy (Unverified 07/18/18 20:42) Home Medications: Home Medications Medication Instructions Recorded Confirmed Last Taken Type Furosemide [Lasix] 20 mg PO DAILY 07/19/18 07/19/18 07/18/18 History Insulin Aspart [Novolog Flexpen] 100 unit SQ TID 07/19/18 07/19/18 07/18/18 History Losartan Potassium [Cozaar] 50 mg PO DAILY 07/19/18 07/19/18 07/18/18 History Metoprolol Xl [Metoprolol 25 mg PO QDAY 07/19/18 07/19/18 07/18/18 History SUCCINATE ER TAB] Naproxen 500 mg PO BID 07/19/18 07/19/18 07/18/18 History Ranitidine HCl [Acid Control] 150 mg PO BID 07/19/18 07/19/18 07/18/18 History Active Medications: Generic Name Dose Route Start Last Admin Trade Name Freq PRN Reason Stop Dose Admin Albuterol 2.5 mg 07/24/18 20:13 07/24/18 20:31 Proventil IH 2.5 mg Q4HRT PRN Administration Shortness Of Breath Albuterol/Ipratropium 1 ampul 07/25/18 14:00 08/10/18 07:51 Duoneb *Not For Prn Use* IH 1 ampul TIDRT TRINY Administration Amlodipine Besylate 10 mg 08/09/18 16:00 08/09/18 15:36 Norvasc PO 10 mg QDAY TRINY Administration Clonidine HCl 0.3 mg 07/25/18 10:00 08/08/18 10:02 Catapres-Tts Patch TD 0.3 mg Mo TRINY Administration Dextrose 50 ml 07/19/18 02:51 D50w (25gm) Syringe IV PRN PRN Hypoglycemia Hydralazine HCl 20 mg 08/09/18 14:00 08/10/18 08:20 Apresoline IV 20 mg Q6H TRINY Administration Dextrose 1,000 mls @ 60 mls/hr 08/08/18 10:30 08/09/18 20:18 D5w IV 60 mls/hr DIRECT TRINY Administration Amino Acids/Electrolytes/Dextrose 1,560 mls @ 65 mls/hr 08/09/18 20:00 08/09/18 20:19 Tpn Adult IV 08/10/18 19:59 65 mls/hr DAILY@2000 TRINY Administration Protocol Insulin Glargine 20 units 08/02/18 11:00 08/09/18 10:11 Lantus SUB-Q 20 units DAILY TRINY Administration Insulin Human Lispro 0 unit 07/19/18 03:00 08/10/18 08:20 Humalog SUB-Q 3 unit Q4H TRINY Administration Protocol Labetalol HCl 10 mg 07/26/18 12:37 08/08/18 05:06 Normodyne IV 10 mg Q4H PRN Administration Blood Pressure Morphine Sulfate 2 mg 08/03/18 00:21 08/09/18 21:52 Morphine IV 2 mg Q3H PRN Administration Pain, Moderate (4-6) Multi-Ingred Cream/Lotion/Oil/Oint 1 applic 08/01/18 11:56 Artificial Tears Ophth Oint OU Q4HR PRN Dry Eye(s) Pantoprazole Sodium 40 mg 08/02/18 10:00 08/09/18 10:05 Protonix IV 40 mg QDAY TRINY Administration
--- NOTE | 2018-08-10 09:14 | Progress Note ---
Assessment and Plan Pt more alert today. iron full liq Abd soft. surgically stable advance to GI soft (with ADA & renal restrictions) may begin to taper TPN if enough po calories being consumed. Selected Entries 08/10/18 08/10/18 08/10/18 07:39 08:20 08:39 Temperature 98.5 F Pulse Rate [ 85 Right Radial] Blood Pressure 177/83 Laboratory Tests 08/10/18 08/10/18 04:08 04:08 WBC 7.5 Hgb 8.7 L Hct 27.7 L Sodium 147 H Potassium 3.3 L Chloride 110.0 H BUN 65 H Creatinine 1.3 H Objective Vital Signs - 12hr 08/09/18 08/10/18 08/10/18 22:00 02:43 02:53 Temperature 98.3 F Pulse Rate 86 86 Pulse Rate [ Anterior Bilateral Throughout] Pulse Rate [ Anterior Bilateral] Pulse Rate [ 86 From Monitor] Pulse Rate [ Right Radial] Respiratory 20 20 Rate Respiratory Rate [Anterior Bilateral Throughout] Respiratory Rate [Anterior Bilateral] Blood Pressure 164/73 164/73 O2 Sat by Pulse 97 97 Oximetry 08/10/18 08/10/18 08/10/18 07:39 07:51 08:20 Temperature 98.5 F Pulse Rate 85 85 Pulse Rate [ 94 H Anterior Bilateral Throughout] Pulse Rate [ 100 H Anterior Bilateral] Pulse Rate [ From Monitor] Pulse Rate [ Right Radial] Respiratory 20 Rate Respiratory 18 Rate [Anterior Bilateral Throughout] Respiratory 18 Rate [Anterior Bilateral] Blood Pressure 177/83 177/83 O2 Sat by Pulse 99 Oximetry 08/10/18 08/10/18 08:39 09:09 Temperature Pulse Rate Pulse Rate [ Anterior Bilateral Throughout] Pulse Rate [ Anterior Bilateral] Pulse Rate [ 85 From Monitor] Pulse Rate [ 85 Right Radial] Respiratory 20 Rate Respiratory Rate [Anterior Bilateral Throughout] Respiratory Rate [Anterior Bilateral] Blood Pressure O2 Sat by Pulse 99 99 Oximetry - Labs 08/10/18 04:08 08/10/18 04:08 Diabetes panel 08/10/18 Range/Units 04:08 Sodium 147 H (137-145) mmol/L Potassium 3.3 L (3.6-5.0) mmol/L Chloride 110.0 H (98-107) mmol/L Carbon Dioxide 23 (22-30) mmol/L BUN 65 H (7-17) mg/dL Creatinine 1.3 H (0.7-1.2) mg/dL Glucose 199 H (65-100) mg/dL Calcium 8.7 (8.4-10.2) mg/dL AST 20 (5-40) units/L ALT 14 (7-56) units/L Alkaline Phosphatase 147 H (35-129) units/L Total Protein 6.3 (6.3-8.2) g/dL Albumin 2.6 L (3.9-5) g/dL Calcium panel 08/09/18 08/10/18 Range/Units 10:43 04:08 Calcium 8.7 (8.4-10.2) mg/dL Phosphorus 2.80 (2.5-4.5) mg/dL Albumin 2.6 L (3.9-5) g/dL Pituitary panel 08/10/18 Range/Units 04:08 Sodium 147 H (137-145) mmol/L Potassium 3.3 L (3.6-5.0) mmol/L Chloride 110.0 H (98-107) mmol/L Carbon Dioxide 23 (22-30) mmol/L BUN 65 H (7-17) mg/dL Creatinine 1.3 H (0.7-1.2) mg/dL Glucose 199 H (65-100) mg/dL Calcium 8.7 (8.4-10.2) mg/dL Adrenal panel 08/10/18 Range/Units 04:08 Sodium 147 H (137-145) mmol/L Potassium 3.3 L (3.6-5.0) mmol/L Chloride 110.0 H (98-107) mmol/L Carbon Dioxide 23 (22-30) mmol/L BUN 65 H (7-17) mg/dL Creatinine 1.3 H (0.7-1.2) mg/dL Glucose 199 H (65-100) mg/dL Calcium 8.7 (8.4-10.2) mg/dL Total Bilirubin 0.40 (0.1-1.2) mg/dL AST 20 (5-40) units/L ALT 14 (7-56) units/L Alkaline Phosphatase 147 H (35-129) units/L Total Protein 6.3 (6.3-8.2) g/dL Albumin 2.6 L (3.9-5) g/dL
--- NOTE | 2018-08-10 09:17 | Progress Note ---
Assessment and Plan Impression: * Acute kidney injury secondary multifactorial etioloiges: prerenal azotemia, sepsis related ATN, contrast induced nephropathy * Stage IV adenocarcinoma of colon * s/p right hemicolectomy, ileocolic anastamosis * Sepsis * Intraabdominal abscess w/?perforation vs necrotic tumor * Hypernatermia * Hypertension Plan: * SCr is stable * Sodium improving, continue D5W 60ml/hour * Replete K * Abx per ID * Transfuse pRBC per primary team * Consultants' recommendations reviewed * Avoid nephrotoxins * Dose medications for renal function Subjective Date of service: 08/10/18 Principal diagnosis: colon ca Interval history: Patient is tolerating clear liquid diet Objective - Vital Signs Vital signs: Vital Signs - 12hr 08/09/18 08/10/18 08/10/18 22:00 02:43 02:53 Temperature 98.3 F Pulse Rate 86 86 Pulse Rate [ Anterior Bilateral Throughout] Pulse Rate [ Anterior Bilateral] Pulse Rate [ 86 From Monitor] Pulse Rate [ Right Radial] Respiratory 20 20 Rate Respiratory Rate [Anterior Bilateral Throughout] Respiratory Rate [Anterior Bilateral] Blood Pressure 164/73 164/73 O2 Sat by Pulse 97 97 Oximetry 08/10/18 08/10/18 08/10/18 07:39 07:51 08:20 Temperature 98.5 F Pulse Rate 85 85 Pulse Rate [ 94 H Anterior Bilateral Throughout] Pulse Rate [ 100 H Anterior Bilateral] Pulse Rate [ From Monitor] Pulse Rate [ Right Radial] Respiratory 20 Rate Respiratory 18 Rate [Anterior Bilateral Throughout] Respiratory 18 Rate [Anterior Bilateral] Blood Pressure 177/83 177/83 O2 Sat by Pulse 99 Oximetry 08/10/18 08/10/18 08:39 09:09 Temperature Pulse Rate Pulse Rate [ Anterior Bilateral Throughout] Pulse Rate [ Anterior Bilateral] Pulse Rate [ 85 From Monitor] Pulse Rate [ 85 Right Radial] Respiratory 20 Rate Respiratory Rate [Anterior Bilateral Throughout] Respiratory Rate [Anterior Bilateral] Blood Pressure O2 Sat by Pulse 99 99 Oximetry - General Appearance General appearance: well-developed, well-nourished EENT: ATNC Respiratory: Present: Decreased Breath Sounds Cardiology: regular, S1S2 Gastrointestinal: hypoactive bowel sounds Integumentary: no rash, warm and dry Neurologic: no focal deficit Musculoskeletal: other (no edema) Psychiatric: cooperative - Lab 08/10/18 04:08 08/10/18 04:08 Most recent lab results Calcium 8.7 mg/dL (8.4-10.2) 08/10/18 04:08 Phosphorus 2.80 mg/dL (2.5-4.5) 08/09/18 10:43 Magnesium 1.40 mg/dL (1.7-2.3) L 08/09/18 10:43 Medications & Allergies - Medications Allergies/Adverse Reactions: Allergies No Known Allergies Allergy (Unverified 07/18/18 20:42) Home Medications: Home Medications Medication Instructions Recorded Confirmed Last Taken Type Furosemide [Lasix] 20 mg PO DAILY 07/19/18 07/19/18 07/18/18 History Insulin Aspart [Novolog Flexpen] 100 unit SQ TID 07/19/18 07/19/18 07/18/18 History Losartan Potassium [Cozaar] 50 mg PO DAILY 07/19/18 07/19/18 07/18/18 History Metoprolol Xl [Metoprolol 25 mg PO QDAY 07/19/18 07/19/18 07/18/18 History SUCCINATE ER TAB] Naproxen 500 mg PO BID 07/19/18 07/19/18 07/18/18 History Ranitidine HCl [Acid Control] 150 mg PO BID 07/19/18 07/19/18 07/18/18 History Active Medications: Generic Name Dose Route Start Last Admin Trade Name Freq PRN Reason Stop Dose Admin Albuterol 2.5 mg 07/24/18 20:13 07/24/18 20:31 Proventil IH 2.5 mg Q4HRT PRN Administration Shortness Of Breath Albuterol/Ipratropium 1 ampul 07/25/18 14:00 08/10/18 07:51 Duoneb *Not For Prn Use* IH 1 ampul TIDRT TRINY Administration Amlodipine Besylate 10 mg 08/09/18 16:00 08/09/18 15:36 Norvasc PO 10 mg QDAY TRINY Administration Clonidine HCl 0.3 mg 07/25/18 10:00 08/08/18 10:02 Catapres-Tts Patch TD 0.3 mg Mo TRINY Administration Dextrose 50 ml 07/19/18 02:51 D50w (25gm) Syringe IV PRN PRN Hypoglycemia Hydralazine HCl 20 mg 08/09/18 14:00 08/10/18 08:20 Apresoline IV 20 mg Q6H TRINY Administration Dextrose 1,000 mls @ 60 mls/hr 08/08/18 10:30 08/09/18 20:18 D5w IV 60 mls/hr DIRECT TRINY Administration Amino Acids/Electrolytes/Dextrose 1,560 mls @ 65 mls/hr 08/09/18 20:00 08/09/18 20:19 Tpn Adult IV 08/10/18 19:59 65 mls/hr DAILY@2000 TRINY Administration Protocol Insulin Glargine 20 units 08/02/18 11:00 08/09/18 10:11 Lantus SUB-Q 20 units DAILY TRINY Administration Insulin Human Lispro 0 unit 07/19/18 03:00 08/10/18 08:20 Humalog SUB-Q 3 unit Q4H TRINY Administration Protocol Labetalol HCl 10 mg 07/26/18 12:37 08/08/18 05:06 Normodyne IV 10 mg Q4H PRN Administration Blood Pressure Morphine Sulfate 2 mg 08/03/18 00:21 08/09/18 21:52 Morphine IV 2 mg Q3H PRN Administration Pain, Moderate (4-6) Multi-Ingred Cream/Lotion/Oil/Oint 1 applic 08/01/18 11:56 Artificial Tears Ophth Oint OU Q4HR PRN Dry Eye(s) Pantoprazole Sodium 40 mg 08/02/18 10:00 08/09/18 10:05 Protonix IV 40 mg QDAY TRINY Administration
[2018-08-10] MEDS: NORVASC PO SCH (09:31)
[2018-08-10] MEDS: PROTONIX IV SCH (09:32)
[2018-08-10] MEDS: LANTUS SUB-Q SCH (09:32)
[2018-08-10] MEDS: MORPHINE IV PRN (09:50)
[2018-08-10] MEDS ORDERED: KCL 10MEQ/100ML 10 MEQ/100 ML BAG IV ONE (10:30)
--- NOTE | 2018-08-10 12:02 | Progress Note ---
Assessment and Plan Assessment and plan: Patient is 87 yo woman with a history of DM, CHF and hypertension who presents to [facility] ED via EMS with AMS, falling at home, feeling hot, blood glucose was in the 40s and she was given oral glucose by EMS prior to arrival. Associated with falling is diaphoresis, lose of appetite, n/v, sob x 1 day. This is patient 3rd fall at home. She did complain of right upper quadrant, sharp intermittent severe, aggravated by certain movement, relieved by different positions. She was found to have bowel perforation. * CTAP with IV contrast IMPRESSION: Extensive inflammatory changes involving the cecum and proximal ascending colon extending posteriorly with pericolonic stranding. Diagnostic consideration would include appendicitis with perforation presuming the patient still has her appendix. The other possibility is severe diverticulitis with probable perforation. Extensive colonic diverticulosis. Uncomplicated cysts in both kidneys. Hysterectomy. Multilevel disc degeneration in the lumbar spine. Incidental note is made of a crescent-shaped area of mural thrombus at the thoracoabdominal junction involving the aorta. A remote dissection cannot entirely be excluded. * CTA chest pains IMPRESSION: 1. No evidence of pulmonary embolism. 2. Mild cardiomegaly 3. Lingular subsegmental atelectasis versus parenchymal scar 4. 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 No evidence of acute infarct or intracranial hemorrhage. 2. White matter lucency consistent with chronic microvascular ischemic disease. * pCXR IMPRESSION: Subpleural effusion and cardiomegaly * 07/25/[address] abd/pelvis without contrast FINDINGS: Small layering pleural effusions have developed measuring up to 1 cm in thickness. Heart size is stable at the upper limits of normal. The visualized lung bases are adequately aerated. The masslike lesion in the ascending colon appears stable in size and contour. There is no evidence for obstruction or leakage of contrast. There are scattered diverticula in the proximal colon. Mild inflammatory changes adjacent to this masslike lesion have decreased by 20% since the previous exam. It is unclear if this represents a colon mass or is associated with diverticulitis. I favor a colon mass. The liver, biliary system, pancreas, spleen, kidneys and adrenal glands remain unremarkable. The pelvic viscera are within normal limits. Hysterectomy changes are noted. IMPRESSION: Inflammatory changes adjacent to the right colon mass or diverticulitis has improved slightly. Overall, no overwhelming change. No new acute process. New small layering pleural effusions. * 08/01/[address] Wooten Procedure: Exploratory laparotomy, lysis of extensive adhesion, right hemicolectomy with ileocolic anastomosis "Findings: A very large mass extending outside of the colon into the retroperitoneum in the area of the hepatic flexure. Also, extensive adhesions involving the entire omentum as well as pelvis including small bowel deep in the pelvis. Technically difficult and challenging case....Final Impression: Stage IV cancer with extension into the surrounding fat and retroperitoneum. 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 TPN was started on 07/23/[address] 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 Follow-up on current diagnosis of bowel perforation. Overnight uneventful. Patient denies any chest pain, shortness breath, nausea/vomiting or severe headaches. Imaging, nursing note, chart, labs and old chart reviewed. Discussed with patient. Hospitalist Physical - Physical exam Narrative exam: Gen: WDWN, NAD, Awake, Alert, Orientated x 1 HEENT: NCAT, EOMI, PERRL, OP Clear Neck: supple, no adenopathy, no thyromegaly, no JVD CVS/Heart: RRR, normal S1S2, pulses present bilaterally Chest/Lungs: diminished bs bilateral, Symmetrical chest expansion, good air entry bilaterally GI/Abdomen: soft diffusely tender, good bowel sounds, no guarding or rebound /Bladder: no suprapubic tenderness, no CVA or paraspinal tenderness Extermity/Skin: no c/c/e, no obvious rash MSK: FROM x 4 Neuro: CN 2-12 grossly intact, no new focal deficits Psych: calm - Constitutional Vitals: Temp Pulse Resp BP Pulse Ox 98.5 F 85 20 155/72 99 08/10/18 07:39 08/10/18 10:00 08/10/18 10:00 08/10/18 09:31 08/10/18 10:00 General appearance: Present: no acute distress, well-nourished Results - Labs CBC & Chem 7: 08/10/18 04:08 08/10/18 04:08 Labs: Laboratory Last Values WBC 7.5 K/mm3 (4.5-11.0) 08/10/18 04:08 RBC 3.18 M/mm3 (3.65-5.03) L 08/10/18 04:08 Hgb 8.7 gm/dl (10.1-14.3) L 08/10/18 04:08 Hct 27.7 % (30.3-42.9) L 08/10/18 04:08 MCV 87 fl (79-97) 08/10/18 04:08 MCH 28 pg (28-32) 08/10/18 04:08 MCHC 32 % (30-34) 08/10/18 04:08 RDW 19.9 % (13.2-15.2) H 08/10/18 04:08 Plt Count 207 K/mm3 (140-440) 08/10/18 04:08 Lymph % (Auto) 7.7 % (13.4-35.0) L 08/04/18 04:15 Dickens % (Auto) Truck [employer]her 08/06/18 04:41 Eos % (Auto) 1.0 % (0.0-4.3) 08/04/18 04:15 Baso % (Auto) 0.4 % (0.0-1.8) 08/04/18 04:15 Lymph # 0.9 K/mm3 (1.2-5.4) L 08/04/18 04:15 Dickens # 1.1 K/mm3 (0.0-0.8) H 08/04/18 04:15 Eos # 0.1 K/mm3 (0.0-0.4) 08/04/18 04:15 Baso # 0.0 K/mm3 (0.0-0.1) 08/04/18 04:15 Add Manual Diff Complete 08/07/18 04:00 Total Counted 100 08/07/18 04:00 Seg Neutrophils % 80.6 % (40.0-70.0) H 08/04/18 04:15 Seg Neuts % (Manual) 78.0 % (40.0-70.0) H 08/07/18 04:00 Band Neutrophils % 2.0 % 08/07/18 04:00 Lymphocytes % (Manual) 10.0 % (13.4-35.0) L 08/07/18 04:00 Reactive Lymphs % (Man) 0 % 08/07/18 04:00 Monocytes % (Manual) 7.0 % (0.0-7.3) 08/07/18 04:00 Eosinophils % (Manual) 3.0 % (0.0-4.3) 08/07/18 04:00 Basophils % (Manual) 0 % (0.0-1.8) 08/07/18 04:00 Metamyelocytes % 0 % 08/07/18 04:00 Myelocytes % 0 % 08/07/18 04:00 Promyelocytes % 0 % 08/07/18 04:00 Blast Cells % 0 % 08/07/18 04:00 Nucleated RBC % Not Reportable 08/07/18 04:00 Seg Neutrophils # 8.9 K/mm3 (1.8-7.7) H 08/04/18 04:15 Seg Neutrophils # Man 7.1 K/mm3 (1.8-7.7) 08/07/18 04:00 Band Neutrophils # 0.2 K/mm3 08/07/18 04:00 Lymphocytes # (Manual) 0.9 K/mm3 (1.2-5.4) L 08/07/18 04:00 Abs React Lymphs (Man) 0.0 K/mm3 08/07/18 04:00 Monocytes # (Manual) 0.6 K/mm3 (0.0-0.8) 08/07/18 04:00 Eosinophils # (Manual) 0.3 K/mm3 (0.0-0.4) 08/07/18 04:00 Basophils # (Manual) 0.0 K/mm3 (0.0-0.1) 08/07/18 04:00 Metamyelocytes # 0.0 K/mm3 08/07/18 04:00 Myelocytes # 0.0 K/mm3 08/07/18 04:00 Promyelocytes # 0.0 K/mm3 08/07/18 04:00 Blast Cells # 0.0 K/mm3 08/07/18 04:00 WBC Morphology Not Reportable 08/07/18 04:00 Hypersegmented Neuts Not Reportable 08/07/18 04:00 Hyposegmented Neuts Not Reportable 08/07/18 04:00 Hypogranular Neuts Not Reportable 08/07/18 04:00 Smudge Cells Not Reportable 08/07/18 04:00 Toxic Granulation Not Reportable 08/07/18 04:00 Toxic Vacuolation Not Reportable 08/07/18 04:00 Dohle Bodies Not Reportable 08/07/18 04:00 Pelger-Huet Anomaly Not Reportable 08/07/18 04:00 Richard Rods Not Reportable 08/07/18 04:00 Platelet Estimate Consistent w auto 08/07/18 04:00 Clumped Platelets Not Reportable 08/07/18 04:00 Plt Clumps, EDTA Not Reportable 08/07/18 04:00 Large Platelets Not Reportable 08/07/18 04:00 Giant Platelets Not Reportable 08/07/18 04:00 Platelet Satelliting Not Reportable 08/07/18 04:00 Plt Morphology Comment Not Reportable 08/07/18 04:00 RBC Morphology Not Reportable 08/07/18 04:00 Dimorphic RBCs Not Reportable 08/07/18 04:00 Polychromasia Few 08/07/18 04:00 Hypochromasia Few 08/07/18 04:00 Poikilocytosis 1+ 08/07/18 04:00 Anisocytosis 1+ 08/07/18 04:00 Microcytosis Not Reportable 08/07/18 04:00 Macrocytosis Not Reportable 08/07/18 04:00 Spherocytes Not Reportable 08/07/18 04:00 Pappenheimer Bodies Not Reportable 08/07/18 04:00 Sickle Cells Not Reportable 08/07/18 04:00 Target Cells Few 08/07/18 04:00 Tear Drop Cells Not Reportable 08/07/18 04:00 Ovalocytes Not Reportable 08/07/18 04:00 Helmet Cells Not Reportable 08/07/18 04:00 Varela-Lumpkin Bodies Not Reportable 08/07/18 04:00 Louisa Rings Not Reportable 08/07/18 04:00 [place] Cells Not Reportable 08/07/18 04:00 Bite Cells Not Reportable 08/07/18 04:00 Crenated Cell Not Reportable 08/07/18 04:00 Elliptocytes Not Reportable 08/07/18 04:00 Acanthocytes (Spur) Not Reportable 08/07/18 04:00 Rouleaux Not Reportable 08/07/18 04:00 Hemoglobin C Crystals Not Reportable 08/07/18 04:00 Schistocytes Not Reportable 08/07/18 04:00 Malaria parasites Not Reportable 08/07/18 04:00 Michi Bodies Not Reportable 08/07/18 04:00 Hem Pathologist Commnt No 08/07/18 04:00 PT 14.5 Sec. (12.2-14.9) 07/28/18 05:27 INR 1.09 (0.87-1.13) 07/28/18 05:27 APTT 23.2 Sec. (24.2-36.6) L 07/18/18 20:48 POC ABG pH 7.409 (7.35-7.45) 08/02/18 09:56 POC ABG pCO2 38.5 (35-45) 08/02/18 09:56 POC ABG pO2 70 (80-105) L 08/02/18 09:56 POC ABG HCO3 24.3 08/02/18 09:56 POC ABG Total CO2 25 08/02/18 09:56 POC ABG O2 Sat 94 08/02/18 09:56 POC ABG Base Excess 0 08/02/18 09:56 FiO2 40 % 08/02/18 09:56 Sodium 147 mmol/L (137-145) H 08/10/18 04:08 Potassium 3.3 mmol/L (3.6-5.0) L 08/10/18 04:08 Chloride 110.0 mmol/L (98-107) H 08/10/18 04:08 Carbon Dioxide 23 mmol/L (22-30) 08/10/18 04:08 Anion Gap 17 mmol/L 08/10/18 04:08 BUN 65 mg/dL (7-17) H 08/10/18 04:08 Creatinine 1.3 mg/dL (0.7-1.2) H 08/10/18 04:08 Estimated GFR 47 ml/min 08/10/18 04:08 BUN/Creatinine Ratio 50 % 08/10/18 04:08 Glucose 199 mg/dL (65-100) H 08/10/18 04:08 POC Glucose 321 (70-105) H 08/10/18 11:09 Lactic Acid 1.10 mmol/L (0.7-2.0) 07/19/18 17:04 Calcium 8.7 mg/dL (8.4-10.2) 08/10/18 04:08 Phosphorus 2.80 mg/dL (2.5-4.5) 08/09/18 10:43 Magnesium 1.40 mg/dL (1.7-2.3) L 08/09/18 10:43 Iron 17 ug/dL (37-170) L 08/07/18 04:00 TIBC 122 mcg/dL (250-450) L 08/07/18 04:00 Ferritin 205.8 ng/mL (13.0-400.0) 08/07/18 04:00 Total Bilirubin 0.40 mg/dL (0.1-1.2) 08/10/18 04:08 AST 20 units/L (5-40) 08/10/18 04:08 ALT 14 units/L (7-56) 08/10/18 04:08 Alkaline Phosphatase 147 units/L (35-129) H 08/10/18 04:08 Total Creatine Kinase 48 units/L (30-135) 07/18/18 20:48 CK-MB (CK-2) < 1.0 ng/mL (0.0-4.0) 07/18/18 20:48 CK-MB (CK-2) Rel Index 2.0 (0-4) 07/18/18 20:48 Troponin T 0.025 ng/mL (0.00-0.029) 07/18/18 20:48 C-Reactive Protein 4.30 mg/dL (0.00-1.30) H 07/25/18 03:58 NT-Pro-B Natriuret Pep 462.4 pg/mL (0-900) 07/18/18 20:48 Total Protein 6.3 g/dL (6.3-8.2) 08/10/18 04:08 Albumin 2.6 g/dL (3.9-5) L 08/10/18 04:08 Albumin/Globulin Ratio 0.7 % 08/10/18 04:08 Carcinoembryonic Ag See scanned result 07/22/18 13:47 Vitamin B12 1012 pg/mL (211-911) H 08/07/18 04:00 Folate 12.21 ng/mL (7.3-26.0) 08/07/18 04:00 Urine Color Yellow (Yellow) 07/18/18 21:49 Urine Turbidity Clear (Clear) 07/18/18 21:49 Urine pH 5.0 (5.0-7.0) 07/18/18 21:49 Ur Specific [place] 1.019 (1.003-1.030) 07/18/18 21:49 Urine Protein <15 mg/dl mg/dL (Negative) 07/18/18 21:49 Urine Glucose (UA) Neg mg/dL (Negative) 07/18/18 21:49 Urine Ketones Neg mg/dL (Negative) 07/18/18 21:49 Urine Blood Neg (Negative) 07/18/18 21:49 Urine Nitrite Neg (Negative) 07/18/18 21:49 Urine Bilirubin Neg (Negative) 07/18/18 21:49 Urine Urobilinogen 4.0 mg/dL (<2.0) 07/18/18 21:49 Ur Leukocyte Esterase Neg (Negative) 07/18/18 21:49 Urine WBC (Auto) 2.0 /HPF (0.0-6.0) 07/18/18 21:49 Urine RBC (Auto) < 1.0 /HPF (0.0-6.0) 07/18/18 21:49 U Epithel Cells (Auto) 3.0 /HPF (0-13.0) 07/18/18 21:49 Urine Mucus Few /HPF 07/18/18 21:49 Blood Type B POSITIVE 08/04/18 16:04 Antibody Screen Negative 08/04/18 16:04 Crossmatch See Detail 08/01/18 07:18 Nutrition/Malnutrition Assess - Dietary Evaluation Nutrition/Malnutrition Findings: Nutrition Notes Start: 07/22/18 14:00 Freq: Status: Active Protocol: Document 08/10/18 11:01 TW (Rec: 08/10/18 11:09 TW [id number]) Co-Sign 08/10/18 11:01 LP Nutrition Notes Initial or Follow up Reassessment Current Diagnosis Diabetes Sepsis Hypertension Heart Failure Other Pertinent Diagnosis Stage IV CA s/p exp lap with ( R) colectomy Current Diet CPN at 65mL/hr + Full liquid Labs/Tests Na 144 BUN 65 Cr: 1.3 B Pertinent Medications Reviewed. Height 5 ft 5 in Weight 98.3 kg [place] Body Weight (lbs) 125.0 BMI 36.0 Subjective/Other Information CPN. Pt family member stated that he wants to taper the TPN, but RN stated TPN should remain at normal rate. TPN running at 65 ml/hr. Percent of energy/protein needs met: 84%/100% Burn Absent Trauma Absent #1 Nutrition Diagnosis Altered GI function Diagnosis Progress(for reassessment Continues documentation) Is patient on ventilator? No Is Patient Ambulatory and/or Out of Bed No REE-([facility]-confined to bed) 1715.724 Kcal/Kg value to use for calculation 13 Approximate Energy Requirements Using 1278 kcal/Kg Calculation Used for Recommendations Kcal/kg Additional Notes Pro needs 1-1.2g/kg adjBW: 78- 93g/day Fluid needs 1.5L/day Nutrition Intervention Change Diet Order: CPN + Clear liquid Nutrition Support: CPN at 65mL/hr: MVI, lipid, 17 mEq Mg, 41 mEq K Osmolarity: 1577 Kcal 1,577 Protein (gm) 78 Carbohydrates (gm) 225 Fat (gm) 50 Fluid (mL) 1,810 Fiber (gm) 0 Goal #1 PN to meet 80-100% nutrient needs Anticipated Discharge Needs: Unable to identify at this time Follow-Up By: 08/11/18 Additional Comments Labs in am: BMP, Mg, Phos
--- NOTE | 2018-08-10 12:10 | Progress Note ---
Assessment and Plan Imp: 1. Colon cancer 2. Perforated viscus 3. Sepsis 4. Acute respiratory failure, hypoxia 5. Bibasilar atelectasis 6. SHREYAS Rec: 1. CXR findings likely reflect atelectasis due to hypoventilation in setting of abdominal pain/distension + bed-bound status/weakness; doubt pneumonia; would focus on incentive spirometry and mobilization w/ PT, etc. 2. Can continue the Duonebs 3. SCDs 4. Correct sodium per renal/primary 5. Would continue to work on improving BP control 6. We will monitor with you; pulm-meza stable Plan of care reviewed with patient/family, they understand/agree Subjective Date of service: 08/10/18 Principal diagnosis: colon ca Interval history: No events. On 2L NC. More alert today. No SOB or other complaints. Active Medications Albuterol (Proventil) 2.5 mg IH Q4HRT PRN PRN Reason: Shortness Of Breath Last Admin: 07/24/18 20:31 Dose: 2.5 mg Documented by: Albuterol/Ipratropium (Duoneb *Not For Prn Use*) 1 ampul IH TIDRT [facility] Last Admin: 08/10/18 07:51 Dose: 1 ampul Documented by: Amlodipine Besylate (Norvasc) 10 mg PO QDAY [facility] Last Admin: 08/10/18 09:31 Dose: 10 mg Documented by: Clonidine HCl (Catapres-Tts Patch) 0.3 mg TD Mo [facility] Last Admin: 08/08/18 10:02 Dose: 0.3 mg Documented by: Dextrose (D50w (25gm) Syringe) 50 ml IV PRN PRN PRN Reason: Hypoglycemia Hydralazine HCl (Apresoline) 20 mg IV Q6H [facility] Last Admin: 08/10/18 08:20 Dose: 20 mg Documented by: Dextrose (D5w) 1,000 mls @ 60 mls/hr IV DIRECT [facility] Last Admin: 08/09/18 20:18 Dose: 60 mls/hr Documented by: Amino Acids/Electrolytes/Dextrose (Tpn Adult) 1,560 mls @ 65 mls/hr IV DAILY@1999 [facility]; Protocol Stop: 08/10/18 19:59 Last Admin: 08/09/18 20:19 Dose: 65 mls/hr Documented by: Potassium Chloride (Kcl 10meq/100ml) 10 meq in 100 mls @ 100 mls/hr IV Q1H [facility] Stop: 08/10/18 14:59 Insulin Glargine (Lantus) 20 units SUB-Q DAILY [facility] Last Admin: 08/10/18 09:32 Dose: 20 units Documented by: Insulin Human Lispro (Humalog) 0 unit SUB-Q Q4H [facility]; Protocol Last Admin: 08/10/18 11:13 Dose: 8 unit Documented by: Labetalol HCl (Normodyne) 10 mg IV Q4H PRN PRN Reason: Blood Pressure Last Admin: 08/08/18 05:06 Dose: 10 mg Documented by: Morphine Sulfate (Morphine) 2 mg IV Q3H PRN PRN Reason: Pain, Moderate (4-6) Last Admin: 08/10/18 09:50 Dose: 2 mg Documented by: Multi-Ingred Cream/Lotion/Oil/Oint (Artificial Tears Ophth Oint) 1 applic OU Q4HR PRN PRN Reason: Dry Eye(s) Pantoprazole Sodium (Protonix) 40 mg IV QDAY [facility] Last Admin: 08/10/18 09:32 Dose: 40 mg Documented by: Potassium Chloride (Potassium Chloride) 40 meq PO ONCE ONE Stop: 08/10/18 13:01 Objective Vital Signs - 12hr 08/10/18 08/10/18 08/10/18 02:43 02:53 07:39 Temperature 98.3 F 98.5 F Pulse Rate 86 86 85 Pulse Rate [ Anterior Bilateral Throughout] Pulse Rate [ Anterior Bilateral] Pulse Rate [ From Monitor] Pulse Rate [ Right Radial] Respiratory 20 20 Rate Respiratory Rate [Anterior Bilateral Throughout] Respiratory Rate [Anterior Bilateral] Blood Pressure 164/73 164/73 177/83 O2 Sat by Pulse 97 99 Oximetry 08/10/18 08/10/18 08/10/18 07:51 08:20 09:09 Temperature Pulse Rate 85 Pulse Rate [ 94 H Anterior Bilateral Throughout] Pulse Rate [ 100 H Anterior Bilateral] Pulse Rate [ From Monitor] Pulse Rate [ Right Radial] Respiratory Rate Respiratory 18 Rate [Anterior Bilateral Throughout] Respiratory 18 Rate [Anterior Bilateral] Blood Pressure 177/83 O2 Sat by Pulse 99 Oximetry 08/10/18 08/10/18 08/10/18 09:31 09:50 10:00 Temperature Pulse Rate 109 H Pulse Rate [ Anterior Bilateral Throughout] Pulse Rate [ Anterior Bilateral] Pulse Rate [ 85 From Monitor] Pulse Rate [ 85 Right Radial] Respiratory 20 20 Rate Respiratory Rate [Anterior Bilateral Throughout] Respiratory Rate [Anterior Bilateral] Blood Pressure 155/72 O2 Sat by Pulse 99 Oximetry Constitutional: no acute distress, alert Eyes: non-icteric Neck: supple Effort: normal Ascultation: Bilateral: clear Cardiovascular: regular rate and rhythm (no mrg) Gastrointestinal: hypoactive bowel sounds, soft, other (distended mildly) Integumentary: normal Extremities: no cyanosis, no edema, pink and warm Neurologic: normal mental status, non-focal exam, pupils equal and round, CN II- XII normal Psychiatric: mood appropriate, affect normal CBC and BMP: 08/10/18 04:08 08/10/18 04:08 ABG, PT/INR, D-dimer: ABG POC ABG pH 7.409 (7.35-7.45) 08/02/18 09:56 POC ABG pCO2 38.5 (35-45) 08/02/18 09:56 POC ABG pO2 70 (80-105) L 08/02/18 09:56 POC ABG HCO3 24.3 08/02/18 09:56 POC ABG Total CO2 25 08/02/18 09:56 POC ABG O2 Sat 94 08/02/18 09:56 PT/INR, D-dimer PT 14.5 Sec. (12.2-14.9) 07/28/18 05:27 INR 1.09 (0.87-1.13) 07/28/18 05:27 Abnormal lab findings: Abnormal Labs 07/18/18 07/18/18 07/18/18 20:28 20:48 20:48 WBC 12.3 H RBC 3.47 L Hgb 9.1 L Hct 28.9 L MCH 26 L RDW 16.1 H Plt Count 473 H Lymph % (Auto) 5.4 L [place] % (Auto) Lymph # 0.7 L [place] # Seg Neutrophils % 86.5 H Seg Neuts % (Manual) Lymphocytes % (Manual) Monocytes % (Manual) Seg Neutrophils # 10.7 H Seg Neutrophils # Man Lymphocytes # (Manual) Monocytes # (Manual) APTT POC ABG pO2 Sodium Potassium Chloride Carbon Dioxide BUN Creatinine Glucose 108 H POC Glucose 109 H Calcium Phosphorus Magnesium Iron TIBC Alkaline Phosphatase C-Reactive Protein Total Protein Albumin 3.1 L Vitamin B12 Crossmatch 07/18/18 07/18/18 07/19/18 20:48 23:12 02:50 WBC RBC 3.35 L Hgb 9.0 L Hct 27.9 L MCH 27 L RDW 15.8 H Plt Count Lymph % (Auto) [place] % (Auto) Lymph # [place] # Seg Neutrophils % Seg Neuts % (Manual) Lymphocytes % (Manual) Monocytes % (Manual) Seg Neutrophils # Seg Neutrophils # Man Lymphocytes # (Manual) Monocytes # (Manual) APTT 23.2 L POC ABG pO2 Sodium Potassium Chloride Carbon Dioxide BUN Creatinine Glucose POC Glucose 106 H Calcium Phosphorus Magnesium Iron TIBC Alkaline Phosphatase C-Reactive Protein Total Protein Albumin Vitamin B12 Crossmatch 07/19/18 07/19/18 07/19/18 02:50 08:00 11:46 WBC RBC Hgb Hct MCH RDW Plt Count Lymph % (Auto) [place] % (Auto) Lymph # [place] # Seg Neutrophils % Seg Neuts % (Manual) Lymphocytes % (Manual) Monocytes % (Manual) Seg Neutrophils # Seg Neutrophils # Man Lymphocytes # (Manual) Monocytes # (Manual) APTT POC ABG pO2 Sodium 136 L Potassium Chloride Carbon Dioxide BUN Creatinine Glucose 105 H POC Glucose 131 H 152 H Calcium Phosphorus Magnesium Iron TIBC Alkaline Phosphatase C-Reactive Protein Total Protein Albumin Vitamin B12 Crossmatch 07/19/18 07/19/18 07/19/18 13:46 15:34 20:42 WBC RBC Hgb Hct MCH RDW Plt Count Lymph % (Auto) [place] % (Auto) Lymph # [place] # Seg Neutrophils % Seg Neuts % (Manual) Lymphocytes % (Manual) Monocytes % (Manual) Seg Neutrophils # Seg Neutrophils # Man Lymphocytes # (Manual) Monocytes # (Manual) APTT POC ABG pO2 Sodium Potassium Chloride Carbon Dioxide BUN Creatinine Glucose POC Glucose 152 H 182 H 187 H Calcium Phosphorus Magnesium Iron TIBC Alkaline Phosphatase C-Reactive Protein Total Protein Albumin Vitamin B12 Crossmatch 07/19/18 07/20/18 07/20/18 23:05 02:15 06:14 WBC RBC Hgb Hct MCH RDW Plt Count Lymph % (Auto) [place] % (Auto) Lymph # [place] # Seg Neutrophils % Seg Neuts % (Manual) Lymphocytes % (Manual) Monocytes % (Manual) Seg Neutrophils # Seg Neutrophils # Man Lymphocytes # (Manual) Monocytes # (Manual) APTT POC ABG pO2 Sodium Potassium Chloride Carbon Dioxide BUN Creatinine Glucose POC Glucose 133 H 154 H 137 H Calcium Phosphorus Magnesium Iron TIBC Alkaline Phosphatase C-Reactive Protein Total Protein Albumin Vitamin B12 Crossmatch 07/20/18 07/20/18 07/20/18 06:47 06:47 12:01 WBC 11.7 H RBC 3.51 L Hgb 9.2 L Hct 29.3 L MCH 26 L RDW 15.9 H Plt Count Lymph % (Auto) 12.0 L [place] % (Auto) Lymph # [place] # Seg Neutrophils % 80.8 H Seg Neuts % (Manual) Lymphocytes % (Manual) Monocytes % (Manual) Seg Neutrophils # 9.4 H Seg Neutrophils # Man Lymphocytes # (Manual) Monocytes # (Manual) APTT POC ABG pO2 Sodium Potassium Chloride Carbon Dioxide BUN Creatinine Glucose 126 H POC Glucose 157 H Calcium 8.3 L Phosphorus Magnesium Iron TIBC Alkaline Phosphatase C-Reactive Protein Total Protein Albumin 2.8 L Vitamin B12 Crossmatch 07/20/18 07/20/18 07/20/18 16:11 19:56 23:34 WBC RBC Hgb Hct MCH RDW Plt Count Lymph % (Auto) [place] % (Auto) Lymph # [place] # Seg Neutrophils % Seg Neuts % (Manual) Lymphocytes % (Manual) Monocytes % (Manual) Seg Neutrophils # Seg Neutrophils # Man Lymphocytes # (Manual) Monocytes # (Manual) APTT POC ABG pO2 Sodium Potassium Chloride Carbon Dioxide BUN Creatinine Glucose POC Glucose 155 H 158 H 149 H Calcium Phosphorus Magnesium Iron TIBC Alkaline Phosphatase C-Reactive Protein Total Protein Albumin Vitamin B12 Crossmatch 07/21/18 07/21/18 07/21/18 04:16 08:11 11:15 WBC RBC Hgb Hct MCH RDW Plt Count Lymph % (Auto) [place] % (Auto) Lymph # [place] # Seg Neutrophils % Seg Neuts % (Manual) Lymphocytes % (Manual) Monocytes % (Manual) Seg Neutrophils # Seg Neutrophils # Man Lymphocytes # (Manual) Monocytes # (Manual) APTT POC ABG pO2 Sodium Potassium Chloride Carbon Dioxide BUN Creatinine Glucose POC Glucose 127 H 142 H 159 H Calcium Phosphorus Magnesium Iron TIBC Alkaline Phosphatase C-Reactive Protein Total Protein Albumin Vitamin B12 Crossmatch 07/21/18 07/21/18 07/21/18 16:12 18:49 23:03 WBC RBC Hgb Hct MCH RDW Plt Count Lymph % (Auto) [place] % (Auto) Lymph # [place] # Seg Neutrophils % Seg Neuts % (Manual) Lymphocytes % (Manual) Monocytes % (Manual) Seg Neutrophils # Seg Neutrophils # Man Lymphocytes # (Manual) Monocytes # (Manual) APTT POC ABG pO2 Sodium Potassium Chloride Carbon Dioxide BUN Creatinine Glucose POC Glucose 134 H 113 H 120 H Calcium Phosphorus Magnesium Iron TIBC Alkaline Phosphatase C-Reactive Protein Total Protein Albumin Vitamin B12 Crossmatch 07/22/18 07/22/18 07/22/18 05:24 08:09 11:42 WBC RBC Hgb Hct MCH RDW Plt Count Lymph % (Auto) [place] % (Auto) Lymph # [place] # Seg Neutrophils % Seg Neuts % (Manual) Lymphocytes % (Manual) Monocytes % (Manual) Seg Neutrophils # Seg Neutrophils # Man Lymphocytes # (Manual) Monocytes # (Manual) APTT POC ABG pO2 Sodium Potassium Chloride Carbon Dioxide BUN Creatinine Glucose POC Glucose 126 H 112 H 143 H Calcium Phosphorus Magnesium Iron TIBC Alkaline Phosphatase C-Reactive Protein Total Protein Albumin Vitamin B12 Crossmatch 07/22/18 07/22/18 07/22/18 13:47 16:26 22:48 WBC RBC 3.16 L Hgb 8.3 L Hct 26.5 L MCH 26 L RDW 16.6 H Plt Count Lymph % (Auto) 12.0 L [place] % (Auto) Lymph # 1.1 L [place] # Seg Neutrophils % 79.9 H Seg Neuts % (Manual) Lymphocytes % (Manual) Monocytes % (Manual) Seg Neutrophils # Seg Neutrophils # Man Lymphocytes # (Manual) Monocytes # (Manual) APTT POC ABG pO2 Sodium Potassium Chloride Carbon Dioxide BUN Creatinine Glucose POC Glucose 132 H 118 H Calcium Phosphorus Magnesium Iron TIBC Alkaline Phosphatase C-Reactive Protein Total Protein Albumin Vitamin B12 Crossmatch 07/23/18 07/23/18 07/23/18 05:01 05:39 05:39 WBC RBC 3.04 L Hgb 8.3 L Hct 25.6 L MCH 27 L RDW 16.7 H Plt Count Lymph % (Auto) 13.1 L [place] % (Auto) 8.1 H Lymph # 1.0 L [place] # Seg Neutrophils % 77.0 H Seg Neuts % (Manual) Lymphocytes % (Manual) Monocytes % (Manual) Seg Neutrophils # Seg Neutrophils # Man Lymphocytes # (Manual) Monocytes # (Manual) APTT POC ABG pO2 Sodium Potassium Chloride Carbon Dioxide BUN 22 H Creatinine Glucose 224 H POC Glucose 197 H Calcium 8.3 L Phosphorus 1.90 L Magnesium 1.60 L Iron TIBC Alkaline Phosphatase C-Reactive Protein Total Protein Albumin 2.8 L Vitamin B12 Crossmatch 07/23/18 07/23/18 07/23/18 07:37 12:10 15:41 WBC RBC Hgb Hct MCH RDW Plt Count Lymph % (Auto) [place] % (Auto) Lymph # [place] # Seg Neutrophils % Seg Neuts % (Manual) Lymphocytes % (Manual) Monocytes % (Manual) Seg Neutrophils # Seg Neutrophils # Man Lymphocytes # (Manual) Monocytes # (Manual) APTT POC ABG pO2 Sodium Potassium Chloride Carbon Dioxide BUN Creatinine Glucose POC Glucose 192 H 191 H 187 H Calcium Phosphorus Magnesium Iron TIBC Alkaline Phosphatase C-Reactive Protein Total Protein Albumin Vitamin B12 Crossmatch 07/23/18 07/24/18 07/24/18 23:12 03:12 04:34 WBC RBC Hgb Hct MCH RDW Plt Count Lymph % (Auto) [place] % (Auto) Lymph # [place] # Seg Neutrophils % Seg Neuts % (Manual) Lymphocytes % (Manual) Monocytes % (Manual) Seg Neutrophils # Seg Neutrophils # Man Lymphocytes # (Manual) Monocytes # (Manual) APTT POC ABG pO2 Sodium Potassium Chloride Carbon Dioxide BUN 25 H Creatinine Glucose 191 H POC Glucose 231 H 224 H Calcium 8.3 L Phosphorus 1.60 L Magnesium 1.60 L Iron TIBC Alkaline Phosphatase C-Reactive Protein Total Protein Albumin Vitamin B12 Crossmatch 07/24/18 07/24/18 07/24/18 08:21 12:12 16:55 WBC RBC Hgb Hct MCH RDW Plt Count Lymph % (Auto) [place] % (Auto) Lymph # [place] # Seg Neutrophils % Seg Neuts % (Manual) Lymphocytes % (Manual) Monocytes % (Manual) Seg Neutrophils # Seg Neutrophils # Man Lymphocytes # (Manual) Monocytes # (Manual) APTT POC ABG pO2 Sodium Potassium Chloride Carbon Dioxide BUN Creatinine Glucose POC Glucose 187 H 167 H 192 H Calcium Phosphorus Magnesium Iron TIBC Alkaline Phosphatase C-Reactive Protein Total Protein Albumin Vitamin B12 Crossmatch 07/24/18 07/24/18 07/25/18 20:30 23:38 02:44 WBC RBC Hgb Hct MCH RDW Plt Count Lymph % (Auto) [place] % (Auto) Lymph # [place] # Seg Neutrophils % Seg Neuts % (Manual) Lymphocytes % (Manual) Monocytes % (Manual) Seg Neutrophils # Seg Neutrophils # Man Lymphocytes # (Manual) Monocytes # (Manual) APTT POC ABG pO2 Sodium Potassium Chloride Carbon Dioxide BUN Creatinine Glucose POC Glucose 192 H 181 H 196 H Calcium Phosphorus Magnesium Iron TIBC Alkaline Phosphatase C-Reactive Protein Total Protein Albumin Vitamin B12 Crossmatch 07/25/18 07/25/18 07/25/18 03:58 03:58 06:35 WBC RBC Hgb Hct MCH RDW Plt Count Lymph % (Auto) [place] % (Auto) Lymph # [place] # Seg Neutrophils % Seg Neuts % (Manual) Lymphocytes % (Manual) Monocytes % (Manual) Seg Neutrophils # Seg Neutrophils # Man Lymphocytes # (Manual) Monocytes # (Manual) APTT POC ABG pO2 Sodium Potassium Chloride Carbon Dioxide BUN 23 H Creatinine Glucose 197 H POC Glucose 203 H Calcium Phosphorus 2.30 L D Magnesium Iron TIBC Alkaline Phosphatase C-Reactive Protein 4.30 H Total Protein Albumin Vitamin B12 Crossmatch 07/25/18 07/25/18 07/25/18 12:04 16:33 19:50 WBC RBC Hgb Hct MCH RDW Plt Count Lymph % (Auto) [place] % (Auto) Lymph # [place] # Seg Neutrophils % Seg Neuts % (Manual) Lymphocytes % (Manual) Monocytes % (Manual) Seg Neutrophils # Seg Neutrophils # Man Lymphocytes # (Manual) Monocytes # (Manual) APTT POC ABG pO2 Sodium Potassium Chloride Carbon Dioxide BUN Creatinine Glucose POC Glucose 153 H 204 H 213 H Calcium Phosphorus Magnesium Iron TIBC Alkaline Phosphatase C-Reactive Protein Total Protein Albumin Vitamin B12 Crossmatch 07/25/18 07/26/18 07/26/18 22:52 02:38 04:13 WBC RBC Hgb Hct MCH RDW Plt Count Lymph % (Auto) [place] % (Auto) Lymph # [place] # Seg Neutrophils % Seg Neuts % (Manual) Lymphocytes % (Manual) Monocytes % (Manual) Seg Neutrophils # Seg Neutrophils # Man Lymphocytes # (Manual) Monocytes # (Manual) APTT POC ABG pO2 Sodium Potassium Chloride Carbon Dioxide BUN 22 H Creatinine Glucose 180 H POC Glucose 182 H 169 H Calcium 8.3 L Phosphorus Magnesium Iron TIBC Alkaline Phosphatase C-Reactive Protein Total Protein Albumin Vitamin B12 Crossmatch 07/26/18 07/26/18 07/27/18 06:37 22:45 02:44 WBC RBC Hgb Hct MCH RDW Plt Count Lymph % (Auto) [place] % (Auto) Lymph # [place] # Seg Neutrophils % Seg Neuts % (Manual) Lymphocytes % (Manual) Monocytes % (Manual) Seg Neutrophils # Seg Neutrophils # Man Lymphocytes # (Manual) Monocytes # (Manual) APTT POC ABG pO2 Sodium Potassium Chloride Carbon Dioxide BUN 24 H Creatinine Glucose 195 H POC Glucose 156 H 237 H Calcium Phosphorus Magnesium Iron TIBC Alkaline Phosphatase C-Reactive Protein Total Protein Albumin Vitamin B12 Crossmatch 07/27/18 07/27/18 07/27/18 02:51 06:27 10:45 WBC RBC Hgb Hct MCH RDW Plt Count Lymph % (Auto) [place] % (Auto) Lymph # [place] # Seg Neutrophils % Seg Neuts % (Manual) Lymphocytes % (Manual) Monocytes % (Manual) Seg Neutrophils # Seg Neutrophils # Man Lymphocytes # (Manual) Monocytes # (Manual) APTT POC ABG pO2 Sodium Potassium Chloride Carbon Dioxide BUN Creatinine Glucose POC Glucose 166 H 212 H 177 H Calcium Phosphorus Magnesium Iron TIBC Alkaline Phosphatase C-Reactive Protein Total Protein Albumin Vitamin B12 Crossmatch 07/27/18 07/28/18 07/28/18 16:14 00:12 05:06 WBC RBC Hgb Hct MCH RDW Plt Count Lymph % (Auto) [place] % (Auto) Lymph # [place] # Seg Neutrophils % Seg Neuts % (Manual) Lymphocytes % (Manual) Monocytes % (Manual) Seg Neutrophils # Seg Neutrophils # Man Lymphocytes # (Manual) Monocytes # (Manual) APTT POC ABG pO2 Sodium Potassium Chloride Carbon Dioxide BUN Creatinine Glucose POC Glucose 225 H 220 H 214 H Calcium Phosphorus Magnesium Iron TIBC Alkaline Phosphatase C-Reactive Protein Total Protein Albumin Vitamin B12 Crossmatch 07/28/18 07/28/18 07/28/18 05:27 08:09 11:05 WBC RBC Hgb Hct MCH RDW Plt Count Lymph % (Auto) [place] % (Auto) Lymph # [place] # Seg Neutrophils % Seg Neuts % (Manual) Lymphocytes % (Manual) Monocytes % (Manual) Seg Neutrophils # Seg Neutrophils # Man Lymphocytes # (Manual) Monocytes # (Manual) APTT POC ABG pO2 Sodium Potassium Chloride Carbon Dioxide BUN 25 H Creatinine 0.6 L Glucose 213 H POC Glucose 228 H 258 H Calcium Phosphorus Magnesium Iron TIBC Alkaline Phosphatase C-Reactive Protein Total Protein Albumin Vitamin B12 Crossmatch 07/28/18 07/28/18 07/28/18 12:19 17:40 17:40 WBC RBC 2.87 L Hgb 7.7 L Hct 24.9 L MCH 27 L RDW 18.0 H Plt Count Lymph % (Auto) [place] % (Auto) Lymph # [place] # Seg Neutrophils % Seg Neuts % (Manual) Lymphocytes % (Manual) Monocytes % (Manual) Seg Neutrophils # Seg Neutrophils # Man Lymphocytes # (Manual) Monocytes # (Manual) APTT POC ABG pO2 Sodium Potassium Chloride Carbon Dioxide BUN Creatinine Glucose POC Glucose 209 H Calcium Phosphorus Magnesium Iron TIBC Alkaline Phosphatase C-Reactive Protein Total Protein Albumin Vitamin B12 Crossmatch See Detail 07/28/18 07/28/18 07/29/18 20:00 23:48 02:29 WBC RBC Hgb Hct MCH RDW Plt Count Lymph % (Auto) [place] % (Auto) Lymph # [place] # Seg Neutrophils % Seg Neuts % (Manual) Lymphocytes % (Manual) Monocytes % (Manual) Seg Neutrophils # Seg Neutrophils # Man Lymphocytes # (Manual) Monocytes # (Manual) APTT POC ABG pO2 Sodium Potassium Chloride Carbon Dioxide BUN Creatinine Glucose POC Glucose 192 H 211 H 217 H Calcium Phosphorus Magnesium Iron TIBC Alkaline Phosphatase C-Reactive Protein Total Protein Albumin Vitamin B12 Crossmatch 07/29/18 07/29/18 07/29/18 05:26 05:26 11:33 WBC RBC 3.20 L Hgb 8.5 L Hct 26.8 L MCH 27 L RDW 17.5 H Plt Count Lymph % (Auto) [place] % (Auto) 10.8 H Lymph # [place] # 1.2 H Seg Neutrophils % 70.8 H Seg Neuts % (Manual) Lymphocytes % (Manual) Monocytes % (Manual) Seg Neutrophils # Seg Neutrophils # Man Lymphocytes # (Manual) Monocytes # (Manual) APTT POC ABG pO2 Sodium Potassium 5.3 H Chloride Carbon Dioxide BUN 25 H Creatinine 0.6 L Glucose 227 H POC Glucose 202 H Calcium Phosphorus Magnesium Iron TIBC Alkaline Phosphatase C-Reactive Protein Total Protein Albumin Vitamin B12 Crossmatch 07/29/18 07/29/18 07/30/18 18:35 23:01 04:27 WBC RBC Hgb Hct MCH RDW Plt Count Lymph % (Auto) [place] % (Auto) Lymph # [place] # Seg Neutrophils % Seg Neuts % (Manual) Lymphocytes % (Manual) Monocytes % (Manual) Seg Neutrophils # Seg Neutrophils # Man Lymphocytes # (Manual) Monocytes # (Manual) APTT POC ABG pO2 Sodium Potassium Chloride Carbon Dioxide BUN Creatinine Glucose POC Glucose 194 H 218 H 176 H Calcium Phosphorus Magnesium Iron TIBC Alkaline Phosphatase C-Reactive Protein Total Protein Albumin Vitamin B12 Crossmatch 07/30/18 07/30/18 07/30/18 10:12 11:00 11:00 WBC RBC Hgb Hct MCH RDW 17.9 H Plt Count Lymph % (Auto) 12.3 L [place] % (Auto) 10.2 H Lymph # [place] # 1.0 H Seg Neutrophils % 75.4 H Seg Neuts % (Manual) Lymphocytes % (Manual) Monocytes % (Manual) Seg Neutrophils # Seg Neutrophils # Man Lymphocytes # (Manual) Monocytes # (Manual) APTT POC ABG pO2 Sodium Potassium Chloride Carbon Dioxide BUN 22 H Creatinine Glucose 269 H POC Glucose 265 H Calcium Phosphorus Magnesium Iron TIBC Alkaline Phosphatase C-Reactive Protein Total Protein Albumin Vitamin B12 Crossmatch 07/30/18 07/30/18 07/30/18 15:11 17:21 21:47 WBC RBC Hgb Hct MCH RDW Plt Count Lymph % (Auto) [place] % (Auto) Lymph # [place] # Seg Neutrophils % Seg Neuts % (Manual) Lymphocytes % (Manual) Monocytes % (Manual) Seg Neutrophils # Seg Neutrophils # Man Lymphocytes # (Manual) Monocytes # (Manual) APTT POC ABG pO2 Sodium Potassium Chloride Carbon Dioxide BUN Creatinine Glucose POC Glucose 208 H 177 H 146 H Calcium Phosphorus Magnesium Iron TIBC Alkaline Phosphatase C-Reactive Protein Total Protein Albumin Vitamin B12 Crossmatch 07/31/18 07/31/18 07/31/18 02:13 03:56 10:15 WBC RBC Hgb Hct MCH RDW Plt Count Lymph % (Auto) [place] % (Auto) Lymph # [place] # Seg Neutrophils % Seg Neuts % (Manual) Lymphocytes % (Manual) Monocytes % (Manual) Seg Neutrophils # Seg Neutrophils # Man Lymphocytes # (Manual) Monocytes # (Manual) APTT POC ABG pO2 Sodium Potassium Chloride Carbon Dioxide BUN 26 H Creatinine 0.6 L Glucose 201 H POC Glucose 208 H 216 H Calcium Phosphorus Magnesium Iron TIBC Alkaline Phosphatase C-Reactive Protein Total Protein Albumin Vitamin B12 Crossmatch 07/31/18 07/31/18 08/01/18 15:42 22:34 03:09 WBC RBC Hgb Hct MCH RDW Plt Count Lymph % (Auto) [place] % (Auto) Lymph # [place] # Seg Neutrophils % Seg Neuts % (Manual) Lymphocytes % (Manual) Monocytes % (Manual) Seg Neutrophils # Seg Neutrophils # Man Lymphocytes # (Manual) Monocytes # (Manual) APTT POC ABG pO2 Sodium Potassium Chloride Carbon Dioxide BUN Creatinine Glucose POC Glucose 205 H 236 H 253 H Calcium Phosphorus Magnesium Iron TIBC Alkaline Phosphatase C-Reactive Protein Total Protein Albumin Vitamin B12 Crossmatch 08/01/18 08/01/18 08/01/18 04:19 06:14 07:18 WBC RBC Hgb Hct MCH RDW Plt Count Lymph % (Auto) [place] % (Auto) Lymph # [place] # Seg Neutrophils % Seg Neuts % (Manual) Lymphocytes % (Manual) Monocytes % (Manual) Seg Neutrophils # Seg Neutrophils # Man Lymphocytes # (Manual) Monocytes # (Manual) APTT POC ABG pO2 Sodium Potassium 3.3 L Chloride Carbon Dioxide BUN 26 H Creatinine 0.5 L Glucose 238 H POC Glucose 257 H Calcium 7.1 L D Phosphorus Magnesium Iron TIBC Alkaline Phosphatase C-Reactive Protein Total Protein Albumin Vitamin B12 Crossmatch See Detail 08/01/18 08/01/18 08/01/18 11:41 12:13 16:28 WBC RBC Hgb Hct MCH RDW Plt Count Lymph % (Auto) [place] % (Auto) Lymph # [place] # Seg Neutrophils % Seg Neuts % (Manual) Lymphocytes % (Manual) Monocytes % (Manual) Seg Neutrophils # Seg Neutrophils # Man Lymphocytes # (Manual) Monocytes # (Manual) APTT POC ABG pO2 339 H Sodium Potassium Chloride Carbon Dioxide BUN Creatinine Glucose POC Glucose 184 H 305 H Calcium Phosphorus Magnesium Iron TIBC Alkaline Phosphatase C-Reactive Protein Total Protein Albumin Vitamin B12 Crossmatch 08/01/18 08/01/18 08/02/18 18:25 21:09 02:01 WBC RBC Hgb Hct MCH RDW Plt Count Lymph % (Auto) [place] % (Auto) Lymph # [place] # Seg Neutrophils % Seg Neuts % (Manual) Lymphocytes % (Manual) Monocytes % (Manual) Seg Neutrophils # Seg Neutrophils # Man Lymphocytes # (Manual) Monocytes # (Manual) APTT POC ABG pO2 Sodium Potassium Chloride Carbon Dioxide BUN Creatinine Glucose POC Glucose 338 H 328 H 350 H Calcium Phosphorus Magnesium Iron TIBC Alkaline Phosphatase C-Reactive Protein Total Protein Albumin Vitamin B12 Crossmatch 08/02/18 08/02/18 08/02/18 04:26 04:26 05:47 WBC 20.9 H RBC Hgb Hct MCH RDW 20.1 H Plt Count Lymph % (Auto) [place] % (Auto) Lymph # [place] # Seg Neutrophils % Seg Neuts % (Manual) 90.0 H Lymphocytes % (Manual) 7.0 L Monocytes % (Manual) Seg Neutrophils # Seg Neutrophils # Man 18.8 H Lymphocytes # (Manual) Monocytes # (Manual) APTT POC ABG pO2 Sodium 133 L Potassium Chloride 97.5 L Carbon Dioxide BUN 48 H Creatinine Glucose 347 H POC Glucose 351 H Calcium 7.8 L Phosphorus Magnesium Iron TIBC Alkaline Phosphatase C-Reactive Protein Total Protein 5.4 L Albumin 2.2 L Vitamin B12 Crossmatch 08/02/18 08/02/18 08/02/18 05:52 09:56 10:02 WBC RBC Hgb Hct MCH RDW Plt Count Lymph % (Auto) [place] % (Auto) Lymph # [place] # Seg Neutrophils % Seg Neuts % (Manual) Lymphocytes % (Manual) Monocytes % (Manual) Seg Neutrophils # Seg Neutrophils # Man Lymphocytes # (Manual) Monocytes # (Manual) APTT POC ABG pO2 74 L 70 L Sodium Potassium Chloride Carbon Dioxide BUN Creatinine Glucose POC Glucose 351 H Calcium Phosphorus Magnesium Iron TIBC Alkaline Phosphatase C-Reactive Protein Total Protein Albumin Vitamin B12 Crossmatch 08/02/18 08/02/18 08/03/18 16:34 22:28 03:13 WBC RBC Hgb Hct MCH RDW Plt Count Lymph % (Auto) [place] % (Auto) Lymph # [place] # Seg Neutrophils % Seg Neuts % (Manual) Lymphocytes % (Manual) Monocytes % (Manual) Seg Neutrophils # Seg Neutrophils # Man Lymphocytes # (Manual) Monocytes # (Manual) APTT POC ABG pO2 Sodium Potassium Chloride Carbon Dioxide BUN Creatinine Glucose POC Glucose 250 H 175 H 189 H Calcium Phosphorus Magnesium Iron TIBC Alkaline Phosphatase C-Reactive Protein Total Protein Albumin Vitamin B12 Crossmatch 08/03/18 08/03/18 08/03/18 04:42 04:42 04:42 WBC 16.5 H RBC 3.43 L Hgb 9.6 L Hct MCH RDW 20.2 H Plt Count Lymph % (Auto) 7.9 L [place] % (Auto) 10.8 H Lymph # [place] # 1.8 H Seg Neutrophils % 80.5 H Seg Neuts % (Manual) Lymphocytes % (Manual) Monocytes % (Manual) Seg Neutrophils # 13.3 H Seg Neutrophils # Man Lymphocytes # (Manual) Monocytes # (Manual) APTT POC ABG pO2 Sodium Potassium Chloride Carbon Dioxide BUN 69 H Creatinine 2.0 H D Glucose 163 H POC Glucose Calcium 7.9 L Phosphorus 6.80 H D Magnesium 2.40 H Iron TIBC Alkaline Phosphatase C-Reactive Protein Total Protein 5.5 L Albumin 2.5 L Vitamin B12 Crossmatch 08/03/18 08/03/18 08/03/18 06:21 08:34 10:16 WBC RBC Hgb Hct MCH RDW Plt Count Lymph % (Auto) [place] % (Auto) Lymph # [place] # Seg Neutrophils % Seg Neuts % (Manual) Lymphocytes % (Manual) Monocytes % (Manual) Seg Neutrophils # Seg Neutrophils # Man Lymphocytes # (Manual) Monocytes # (Manual) APTT POC ABG pO2 Sodium Potassium Chloride Carbon Dioxide BUN Creatinine Glucose POC Glucose 163 H 129 H 134 H Calcium Phosphorus Magnesium Iron TIBC Alkaline Phosphatase C-Reactive Protein Total Protein Albumin Vitamin B12 Crossmatch 08/03/18 08/03/18 08/04/18 14:18 21:44 00:19 WBC RBC Hgb Hct MCH RDW Plt Count Lymph % (Auto) [place] % (Auto) Lymph # [place] # Seg Neutrophils % Seg Neuts % (Manual) Lymphocytes % (Manual) Monocytes % (Manual) Seg Neutrophils # Seg Neutrophils # Man Lymphocytes # (Manual) Monocytes # (Manual) APTT POC ABG pO2 Sodium Potassium Chloride Carbon Dioxide BUN Creatinine Glucose POC Glucose 199 H 189 H 162 H Calcium Phosphorus Magnesium Iron TIBC Alkaline Phosphatase C-Reactive Protein Total Protein Albumin Vitamin B12 Crossmatch 08/04/18 08/04/18 08/04/18 04:07 04:15 04:15 WBC 11.1 H RBC 2.93 L Hgb 8.5 L Hct 25.7 L MCH RDW 20.5 H Plt Count Lymph % (Auto) 7.7 L [place] % (Auto) 10.3 H Lymph # 0.9 L [place] # 1.1 H Seg Neutrophils % 80.6 H Seg Neuts % (Manual) Lymphocytes % (Manual) Monocytes % (Manual) Seg Neutrophils # 8.9 H Seg Neutrophils # Man Lymphocytes # (Manual) Monocytes # (Manual) APTT POC ABG pO2 Sodium Potassium Chloride Carbon Dioxide BUN 89 H Creatinine 2.3 H Glucose 196 H POC Glucose 211 H Calcium 7.7 L Phosphorus 6.60 H Magnesium 2.50 H Iron TIBC Alkaline Phosphatase C-Reactive Protein Total Protein Albumin Vitamin B12 Crossmatch 08/04/18 08/04/18 08/04/18 07:56 10:17 14:06 WBC RBC Hgb Hct MCH RDW Plt Count Lymph % (Auto) [place] % (Auto) Lymph # [place] # Seg Neutrophils % Seg Neuts % (Manual) Lymphocytes % (Manual) Monocytes % (Manual) Seg Neutrophils # Seg Neutrophils # Man Lymphocytes # (Manual) Monocytes # (Manual) APTT POC ABG pO2 Sodium Potassium Chloride Carbon Dioxide BUN Creatinine Glucose POC Glucose 229 H 221 H 182 H Calcium Phosphorus Magnesium Iron TIBC Alkaline Phosphatase C-Reactive Protein Total Protein Albumin Vitamin B12 Crossmatch 08/04/18 08/05/18 08/05/18 20:10 01:26 05:23 WBC RBC Hgb Hct MCH RDW Plt Count Lymph % (Auto) [place] % (Auto) Lymph # [place] # Seg Neutrophils % Seg Neuts % (Manual) Lymphocytes % (Manual) Monocytes % (Manual) Seg Neutrophils # Seg Neutrophils # Man Lymphocytes # (Manual) Monocytes # (Manual) APTT POC ABG pO2 Sodium 147 H Potassium Chloride 111.9 H Carbon Dioxide BUN 94 H Creatinine 2.1 H Glucose 158 H POC Glucose 201 H 170 H Calcium 7.8 L Phosphorus Magnesium 2.40 H Iron TIBC Alkaline Phosphatase C-Reactive Protein Total Protein Albumin Vitamin B12 Crossmatch 08/05/18 08/05/18 08/05/18 05:23 05:42 08:21 WBC RBC 2.96 L Hgb 8.5 L Hct 26.0 L MCH RDW 19.9 H Plt Count Lymph % (Auto) [place] % (Auto) Lymph # [place] # Seg Neutrophils % Seg Neuts % (Manual) 78.0 H Lymphocytes % (Manual) 11.0 L Monocytes % (Manual) 10.0 H Seg Neutrophils # Seg Neutrophils # Man Lymphocytes # (Manual) 1.0 L Monocytes # (Manual) 0.9 H APTT POC ABG pO2 Sodium Potassium Chloride Carbon Dioxide BUN Creatinine Glucose POC Glucose 166 H 178 H Calcium Phosphorus Magnesium Iron TIBC Alkaline Phosphatase C-Reactive Protein Total Protein Albumin Vitamin B12 Crossmatch 08/05/18 08/05/18 08/05/18 11:11 15:53 20:15 WBC RBC Hgb Hct MCH RDW Plt Count Lymph % (Auto) [place] % (Auto) Lymph # [place] # Seg Neutrophils % Seg Neuts % (Manual) Lymphocytes % (Manual) Monocytes % (Manual) Seg Neutrophils # Seg Neutrophils # Man Lymphocytes # (Manual) Monocytes # (Manual) APTT POC ABG pO2 Sodium Potassium Chloride Carbon Dioxide BUN Creatinine Glucose POC Glucose 200 H 157 H 194 H Calcium Phosphorus Magnesium Iron TIBC Alkaline Phosphatase C-Reactive Protein Total Protein Albumin Vitamin B12 Crossmatch 08/05/18 08/06/18 08/06/18 22:32 04:37 04:41 WBC RBC Hgb Hct MCH RDW Plt Count Lymph % (Auto) [place] % (Auto) Lymph # [place] # Seg Neutrophils % Seg Neuts % (Manual) Lymphocytes % (Manual) Monocytes % (Manual) Seg Neutrophils # Seg Neutrophils # Man Lymphocytes # (Manual) Monocytes # (Manual) APTT POC ABG pO2 Sodium 150 H Potassium Chloride 114.5 H Carbon Dioxide BUN 89 H Creatinine 1.9 H Glucose 196 H POC Glucose 209 H 207 H Calcium 8.3 L Phosphorus Magnesium Iron TIBC Alkaline Phosphatase C-Reactive Protein Total Protein Albumin Vitamin B12 Crossmatch 08/06/18 08/06/18 08/06/18 04:41 07:42 11:59 WBC RBC 3.09 L Hgb 8.7 L Hct 26.9 L MCH RDW 19.7 H Plt Count Lymph % (Auto) [place] % (Auto) Lymph # [place] # Seg Neutrophils % Seg Neuts % (Manual) 81.0 H Lymphocytes % (Manual) 12.0 L Monocytes % (Manual) Seg Neutrophils # Seg Neutrophils # Man Lymphocytes # (Manual) 0.9 L Monocytes # (Manual) APTT POC ABG pO2 Sodium Potassium Chloride Carbon Dioxide BUN Creatinine Glucose POC Glucose 178 H 195 H Calcium Phosphorus Magnesium Iron TIBC Alkaline Phosphatase C-Reactive Protein Total Protein Albumin Vitamin B12 Crossmatch 08/06/18 08/06/18 08/07/18 14:30 21:41 02:30 WBC RBC Hgb Hct MCH RDW Plt Count Lymph % (Auto) [place] % (Auto) Lymph # [place] # Seg Neutrophils % Seg Neuts % (Manual) Lymphocytes % (Manual) Monocytes % (Manual) Seg Neutrophils # Seg Neutrophils # Man Lymphocytes # (Manual) Monocytes # (Manual) APTT POC ABG pO2 Sodium Potassium Chloride Carbon Dioxide BUN Creatinine Glucose POC Glucose 184 H 181 H 202 H Calcium Phosphorus Magnesium Iron TIBC Alkaline Phosphatase C-Reactive Protein Total Protein Albumin Vitamin B12 Crossmatch 08/07/18 08/07/18 08/07/18 04:00 04:00 04:00 WBC RBC Hgb Hct MCH RDW 20.0 H Plt Count Lymph % (Auto) [place] % (Auto) Lymph # [place] # Seg Neutrophils % Seg Neuts % (Manual) 78.0 H Lymphocytes % (Manual) 10.0 L Monocytes % (Manual) Seg Neutrophils # Seg Neutrophils # Man Lymphocytes # (Manual) 0.9 L Monocytes # (Manual) APTT POC ABG pO2 Sodium 152 H Potassium Chloride 113.2 H Carbon Dioxide BUN 81 H Creatinine 1.7 H Glucose 203 H POC Glucose Calcium Phosphorus Magnesium Iron 17 L TIBC 122 L Alkaline Phosphatase C-Reactive Protein Total Protein Albumin 2.3 L Vitamin B12 1012 H Crossmatch 08/07/18 08/07/18 08/07/18 06:29 07:19 11:00 WBC RBC Hgb Hct MCH RDW Plt Count Lymph % (Auto) [place] % (Auto) Lymph # [place] # Seg Neutrophils % Seg Neuts % (Manual) Lymphocytes % (Manual) Monocytes % (Manual) Seg Neutrophils # Seg Neutrophils # Man Lymphocytes # (Manual) Monocytes # (Manual) APTT POC ABG pO2 Sodium Potassium Chloride Carbon Dioxide BUN Creatinine Glucose POC Glucose 226 H 240 H 174 H Calcium Phosphorus Magnesium Iron TIBC Alkaline Phosphatase C-Reactive Protein Total Protein Albumin Vitamin B12 Crossmatch 08/07/18 08/07/18 08/08/18 15:43 18:09 02:13 WBC RBC Hgb Hct MCH RDW Plt Count Lymph % (Auto) [place] % (Auto) Lymph # [place] # Seg Neutrophils % Seg Neuts % (Manual) Lymphocytes % (Manual) Monocytes % (Manual) Seg Neutrophils # Seg Neutrophils # Man Lymphocytes # (Manual) Monocytes # (Manual) APTT POC ABG pO2 Sodium Potassium Chloride Carbon Dioxide BUN Creatinine Glucose POC Glucose 201 H 210 H 229 H Calcium Phosphorus Magnesium Iron TIBC Alkaline Phosphatase C-Reactive Protein Total Protein Albumin Vitamin B12 Crossmatch 08/08/18 08/08/18 08/08/18 08:00 10:42 14:34 WBC RBC Hgb Hct MCH RDW Plt Count Lymph % (Auto) [place] % (Auto) Lymph # [place] # Seg Neutrophils % Seg Neuts % (Manual) Lymphocytes % (Manual) Monocytes % (Manual) Seg Neutrophils # Seg Neutrophils # Man Lymphocytes # (Manual) Monocytes # (Manual) APTT POC ABG pO2 Sodium Potassium Chloride Carbon Dioxide BUN Creatinine Glucose POC Glucose 254 H 186 H 171 H Calcium Phosphorus Magnesium Iron TIBC Alkaline Phosphatase C-Reactive Protein Total Protein Albumin Vitamin B12 Crossmatch 08/08/18 08/08/18 08/08/18 19:59 23:04 Unknown WBC RBC Hgb Hct MCH RDW Plt Count Lymph % (Auto) [place] % (Auto) Lymph # [place] # Seg Neutrophils % Seg Neuts % (Manual) Lymphocytes % (Manual) Monocytes % (Manual) Seg Neutrophils # Seg Neutrophils # Man Lymphocytes # (Manual) Monocytes # (Manual) APTT POC ABG pO2 Sodium 153 H Potassium Chloride 115.1 H Carbon Dioxide BUN 74 H Creatinine 1.4 H Glucose 255 H POC Glucose 203 H 233 H Calcium Phosphorus 2.40 L Magnesium Iron TIBC Alkaline Phosphatase C-Reactive Protein Total Protein Albumin Vitamin B12 Crossmatch 08/09/18 08/09/18 08/09/18 02:27 05:30 05:30 WBC RBC 3.31 L Hgb 9.6 L Hct 29.0 L MCH RDW 19.6 H Plt Count Lymph % (Auto) [place] % (Auto) Lymph # [place] # Seg Neutrophils % Seg Neuts % (Manual) Lymphocytes % (Manual) Monocytes % (Manual) Seg Neutrophils # Seg Neutrophils # Man Lymphocytes # (Manual) Monocytes # (Manual) APTT POC ABG pO2 Sodium 150 H Potassium Chloride 112.8 H Carbon Dioxide 21 L BUN 72 H Creatinine 1.6 H Glucose 252 H POC Glucose 264 H Calcium Phosphorus Magnesium 1.60 L Iron TIBC Alkaline Phosphatase C-Reactive Protein Total Protein Albumin 2.6 L Vitamin B12 Crossmatch 08/09/18 08/09/18 08/09/18 07:50 10:14 10:43 WBC RBC Hgb Hct MCH RDW Plt Count Lymph % (Auto) [place] % (Auto) Lymph # [place] # Seg Neutrophils % Seg Neuts % (Manual) Lymphocytes % (Manual) Monocytes % (Manual) Seg Neutrophils # Seg Neutrophils # Man Lymphocytes # (Manual) Monocytes # (Manual) APTT POC ABG pO2 Sodium Potassium Chloride Carbon Dioxide BUN Creatinine Glucose POC Glucose 258 H 221 H Calcium Phosphorus Magnesium 1.40 L Iron TIBC Alkaline Phosphatase C-Reactive Protein Total Protein Albumin Vitamin B12 Crossmatch 08/09/18 08/09/18 08/09/18 11:31 14:26 19:06 WBC RBC Hgb Hct MCH RDW Plt Count Lymph % (Auto) [place] % (Auto) Lymph # [place] # Seg Neutrophils % Seg Neuts % (Manual) Lymphocytes % (Manual) Monocytes % (Manual) Seg Neutrophils # Seg Neutrophils # Man Lymphocytes # (Manual) Monocytes # (Manual) APTT POC ABG pO2 Sodium Potassium Chloride Carbon Dioxide BUN Creatinine Glucose POC Glucose 240 H 242 H 198 H Calcium Phosphorus Magnesium Iron TIBC Alkaline Phosphatase C-Reactive Protein Total Protein Albumin Vitamin B12 Crossmatch 08/09/18 08/10/18 08/10/18 22:16 02:39 04:08 WBC RBC 3.18 L Hgb 8.7 L Hct 27.7 L MCH RDW 19.9 H Plt Count Lymph % (Auto) [place] % (Auto) Lymph # [place] # Seg Neutrophils % Seg Neuts % (Manual) Lymphocytes % (Manual) Monocytes % (Manual) Seg Neutrophils # Seg Neutrophils # Man Lymphocytes # (Manual) Monocytes # (Manual) APTT POC ABG pO2 Sodium Potassium Chloride Carbon Dioxide BUN Creatinine Glucose POC Glucose 188 H 196 H Calcium Phosphorus Magnesium Iron TIBC Alkaline Phosphatase C-Reactive Protein Total Protein Albumin Vitamin B12 Crossmatch 08/10/18 08/10/18 08/10/18 04:08 07:14 09:28 WBC RBC Hgb Hct MCH RDW Plt Count Lymph % (Auto) [place] % (Auto) Lymph # [place] # Seg Neutrophils % Seg Neuts % (Manual) Lymphocytes % (Manual) Monocytes % (Manual) Seg Neutrophils # Seg Neutrophils # Man Lymphocytes # (Manual) Monocytes # (Manual) APTT POC ABG pO2 Sodium 147 H Potassium 3.3 L Chloride 110.0 H Carbon Dioxide BUN 65 H Creatinine 1.3 H Glucose 199 H POC Glucose 194 H 253 H Calcium Phosphorus Magnesium Iron TIBC Alkaline Phosphatase 147 H C-Reactive Protein Total Protein Albumin 2.6 L Vitamin B12 Crossmatch 08/10/18 11:09 WBC RBC Hgb Hct MCH RDW Plt Count Lymph % (Auto) [place] % (Auto) Lymph # [place] # Seg Neutrophils % Seg Neuts % (Manual) Lymphocytes % (Manual) Monocytes % (Manual) Seg Neutrophils # Seg Neutrophils # Man Lymphocytes # (Manual) Monocytes # (Manual) APTT POC ABG pO2 Sodium Potassium Chloride Carbon Dioxide BUN Creatinine Glucose POC Glucose 321 H Calcium Phosphorus Magnesium Iron TIBC Alkaline Phosphatase C-Reactive Protein Total Protein Albumin Vitamin B12 Crossmatch Chest x-ray: report reviewed, image reviewed
[2018-08-10] MEDS ORDERED: POTASSIUM CHLORIDE PO ONE (13:00)
[2018-08-10] MEDS: KCL 10MEQ/100ML 10 MEQ/100 ML BAG IV SCH ×2 (14:18→15:21)
[2018-08-10] MEDS ORDERED: TPN ADULT 1,560 ML IV SCH (20:00)
[2018-08-10] MEDS ORDERED: INTRALIPID 20% 250 ML IV SCH (20:00)
[2018-08-11] MEDS: APRESOLINE IV SCH ×3 (03:05→13:26)
[2018-08-11] MEDS: MORPHINE IV PRN ×3 (03:06→20:26)
[2018-08-11] MEDS: HumaLOG SUB-Q SCH ×5 (03:18→19:06)
[2018-08-11 05:03] LABS: Hematocrit 24.6 % (30.3-42.9); Hemoglobin 8.1 gm/dl (10.1-14.3); Mean Corpuscular HGB Conc 33 % (30-34); Mean Corpuscular Volume 86 fl (79-97); Platelet Count 196 K/mm3 (140-440); Red Blood Count 2.85 M/mm3 (3.65-5.03); Red Cell Distribution Width 19.8 % (13.2-15.2)
[2018-08-11 05:28] LABS: Albumin 2.4 g/dL (3.9-5); Calcium 8.7 mg/dL (8.4-10.2)
--- NOTE | 2018-08-11 07:45 | Progress Note ---
Assessment and Plan Pt more alert and awake today. Had BM iron diet Abd soft, non tender. +BS surgically stable advance to GI soft. rec PO calorie ct to see if TPN can be tapered and d/c'ed PRBC transfusion? correct K Selected Entries 08/11/18 07:20 Temperature 98.7 F Pulse Rate 93 H Blood Pressure 179/84 Laboratory Tests 08/11/18 08/11/18 04:11 04:11 WBC 8.9 Hgb 8.1 L Hct 24.6 L Sodium 143 Potassium 3.1 L Chloride 108.2 H Carbon Dioxide 21 L BUN 56 H Creatinine 1.2 Objective Vital Signs - 12hr 08/10/18 08/10/18 08/10/18 20:26 20:36 20:45 Temperature Pulse Rate 90 Pulse Rate [ 90 93 H Anterior Bilateral Throughout] Pulse Rate [ From Monitor] Respiratory Rate Respiratory 20 20 Rate [Anterior Bilateral Throughout] Blood Pressure 152/60 O2 Sat by Pulse 98 Oximetry 08/10/18 08/11/18 08/11/18 22:00 02:46 03:05 Temperature 98.3 F Pulse Rate 93 H 93 H Pulse Rate [ Anterior Bilateral Throughout] Pulse Rate [ 90 From Monitor] Respiratory 20 20 Rate Respiratory Rate [Anterior Bilateral Throughout] Blood Pressure 183/70 183/70 O2 Sat by Pulse 96 Oximetry 08/11/18 08/11/18 03:06 07:20 Temperature 98.7 F Pulse Rate 93 H Pulse Rate [ Anterior Bilateral Throughout] Pulse Rate [ From Monitor] Respiratory 20 20 Rate Respiratory Rate [Anterior Bilateral Throughout] Blood Pressure 179/84 O2 Sat by Pulse 100 Oximetry - Labs 08/11/18 04:11 08/11/18 04:11 Diabetes panel 08/11/18 Range/Units 04:11 Sodium 143 (137-145) mmol/L Potassium 3.1 L (3.6-5.0) mmol/L Chloride 108.2 H (98-107) mmol/L Carbon Dioxide 21 L (22-30) mmol/L BUN 56 H (7-17) mg/dL Creatinine 1.2 (0.7-1.2) mg/dL Glucose 225 H (65-100) mg/dL Calcium 8.7 (8.4-10.2) mg/dL AST 21 (5-40) units/L ALT 13 (7-56) units/L Alkaline Phosphatase 159 H (35-129) units/L Total Protein 6.5 (6.3-8.2) g/dL Albumin 2.4 L (3.9-5) g/dL Calcium panel 08/11/18 Range/Units 04:11 Calcium 8.7 (8.4-10.2) mg/dL Phosphorus 3.10 (2.5-4.5) mg/dL Albumin 2.4 L (3.9-5) g/dL Pituitary panel 08/11/18 Range/Units 04:11 Sodium 143 (137-145) mmol/L Potassium 3.1 L (3.6-5.0) mmol/L Chloride 108.2 H (98-107) mmol/L Carbon Dioxide 21 L (22-30) mmol/L BUN 56 H (7-17) mg/dL Creatinine 1.2 (0.7-1.2) mg/dL Glucose 225 H (65-100) mg/dL Calcium 8.7 (8.4-10.2) mg/dL Adrenal panel 08/11/18 Range/Units 04:11 Sodium 143 (137-145) mmol/L Potassium 3.1 L (3.6-5.0) mmol/L Chloride 108.2 H (98-107) mmol/L Carbon Dioxide 21 L (22-30) mmol/L BUN 56 H (7-17) mg/dL Creatinine 1.2 (0.7-1.2) mg/dL Glucose 225 H (65-100) mg/dL Calcium 8.7 (8.4-10.2) mg/dL Total Bilirubin 0.40 (0.1-1.2) mg/dL AST 21 (5-40) units/L ALT 13 (7-56) units/L Alkaline Phosphatase 159 H (35-129) units/L Total Protein 6.5 (6.3-8.2) g/dL Albumin 2.4 L (3.9-5) g/dL
--- NOTE | 2018-08-11 07:54 | Hem/Onc Progress Note ---
Assessment and Plan 1. T4a N0 Mx adenocarcinoma.bowel perforation, hence labeled as stage 4. 2. A 12 lymph nodes were negative. 3. History of diabetes. 4. History of hypertension. 5. History of fall. 6. History of metabolic encephalopathy. 7. 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 8. History of respiratory failure. 9. History of renal impairment. 10. As per the nursing staff, the patient is DNR. The patient received blood transfusion for anemia. 11. The patient is elderly. 12. As per the information, the patient had bowel perforation, hence labeled as stage 4. 13. The patient was intubated at one time during this admission. 14. I will follow the patient. d/w dr meza d/w family pt was using a walker before coming if pts performance improves - willl look into immune based or targetted therapy abdo drain+ 08/08 - CEA 5.6 08/09 - pt on TPN - will await improvement in pts performance status to decide options 08/10 - pt eating placement being looked into 08/11- pt had a BM - d/w surgical team iv iron - Patient Problems (1) Colon cancer Current Visit: Yes Status: Acute Subjective Date of service: 08/11/18 Principal diagnosis: colon ca Interval history: eating had BM d/w surgeon Objective - Constitutional Vitals: Last Vital Signs Temp 98.7 F 08/11/18 07:20 Pulse 93 H 08/11/18 07:20 Resp 20 08/11/18 07:20 BP 179/84 08/11/18 07:20 Pulse Ox 100 08/11/18 07:20 Pain Intensity (0-10): denies any pain General appearance: no acute distress Performance status: 3-limited selfcare - EENT Eyes: EOM intact ENT: clear oral mucosa Lymph node exam: negative cervical - Neck Neck: normal ROM - Respiratory Respiratory effort: Positive: normal Respiratory: bilateral: CTA - Cardiovascular Heart Sounds: Present: S1 & S2 Extremity abnormal: edema - Gastrointestinal General gastrointestinal: Present: soft, other (s/p sx) Rectal Exam: deferred - Genitourinary Female genitourinary: Present: deferred - Integumentary Integumentary: warm - Musculoskeletal Musculoskeletal: strength equal bilaterally - Neurologic Neurologic: moves all extremities - Psychiatric Psychiatric: appropriate mood/affect - Labs Lab Results: Laboratory Results - last 24 hr 08/10/18 08/10/18 08/10/18 09:28 11:09 14:55 WBC RBC Hgb Hct MCV MCH MCHC RDW Plt Count Sodium Potassium Chloride Carbon Dioxide Anion Gap BUN Creatinine Estimated GFR BUN/Creatinine Ratio Glucose POC Glucose 253 H 321 H 230 H Calcium Phosphorus Magnesium Total Bilirubin AST ALT Alkaline Phosphatase Total Protein Albumin Albumin/Globulin Ratio 08/10/18 08/10/18 08/11/18 18:35 23:33 03:15 WBC RBC Hgb Hct MCV MCH MCHC RDW Plt Count Sodium Potassium Chloride Carbon Dioxide Anion Gap BUN Creatinine Estimated GFR BUN/Creatinine Ratio Glucose POC Glucose 116 H 174 H 216 H Calcium Phosphorus Magnesium Total Bilirubin AST ALT Alkaline Phosphatase Total Protein Albumin Albumin/Globulin Ratio 08/11/18 08/11/18 08/11/18 04:11 04:11 07:21 WBC 8.9 RBC 2.85 L Hgb 8.1 L Hct 24.6 L MCV 86 MCH 29 MCHC 33 RDW 19.8 H Plt Count 196 Sodium 143 Potassium 3.1 L Chloride 108.2 H Carbon Dioxide 21 L Anion Gap 17 BUN 56 H Creatinine 1.2 Estimated GFR 52 BUN/Creatinine Ratio 47 Glucose 225 H POC Glucose 199 H Calcium 8.7 Phosphorus 3.10 Magnesium 1.60 L Total Bilirubin 0.40 AST 21 ALT 13 Alkaline Phosphatase 159 H Total Protein 6.5 Albumin 2.4 L Albumin/Globulin Ratio 0.6 Medications & Allergies - Medications Allergies/Adverse Reactions: Allergies No Known Allergies Allergy (Unverified 07/18/18 20:42) Home Medications: Home Medications Medication Instructions Recorded Confirmed Last Taken Type Furosemide [Lasix] 20 mg PO DAILY 07/19/18 07/19/18 07/18/18 History Insulin Aspart [Novolog Flexpen] 100 unit SQ TID 07/19/18 07/19/18 07/18/18 History Losartan Potassium [Cozaar] 50 mg PO DAILY 07/19/18 07/19/18 07/18/18 History Metoprolol Xl [Metoprolol 25 mg PO QDAY 07/19/18 07/19/18 07/18/18 History SUCCINATE ER TAB] Naproxen 500 mg PO BID 07/19/18 07/19/18 07/18/18 History Ranitidine HCl [Acid Control] 150 mg PO BID 07/19/18 07/19/18 07/18/18 History Active Medications: Generic Name Dose Route Start Last Admin Trade Name Marvin PRN Reason Stop Dose Admin Albuterol 2.5 mg 07/24/18 20:13 07/24/18 20:31 Proventil IH 2.5 mg Q4HRT PRN Administration Shortness Of Breath Albuterol/Ipratropium 1 ampul 07/25/18 14:00 08/10/18 20:33 Duoneb *Not For Prn Use* IH 1 ampul TIDRT TRINY Administration Amlodipine Besylate 10 mg 08/09/18 16:00 08/10/18 09:31 Norvasc PO 10 mg QDAY TRINY Administration Clonidine HCl 0.3 mg 07/25/18 10:00 08/08/18 10:02 Catapres-Tts Patch TD 0.3 mg Mo TRINY Administration Dextrose 50 ml 07/19/18 02:51 D50w (25gm) Syringe IV PRN PRN Hypoglycemia Hydralazine HCl 20 mg 08/09/18 14:00 08/11/18 03:05 Apresoline IV 20 mg Q6H TRINY Administration Dextrose 1,000 mls @ 60 mls/hr 08/08/18 10:30 08/09/18 20:18 D5w IV 60 mls/hr DIRECT TRINY Administration Fat Emulsion Intravenous 250 mls @ 21 mls/hr 08/10/18 20:00 08/10/18 21:04 Intralipid 20% IV 08/11/18 08:00 21 mls/hr DAILY@[email or web address] TRINY Administration Amino Acids/Electrolytes/Dextrose 1,560 mls @ 65 mls/hr 08/10/18 20:00 08/10/18 21:04 Tpn Adult IV 08/11/18 19:59 65 mls/hr DAILY@[email or web address] TRINY Administration Protocol Ferric Sodium Gluconate 110 mls @ 100 mls/hr 08/11/18 07:25 Complex 125 mg/ Sodium IV 08/11/18 08:30 Chloride ONCE ONE Insulin Glargine 20 units 08/02/18 11:00 08/10/18 09:32 Lantus SUB-Q 20 units DAILY TRINY Administration Insulin Human Lispro 0 unit 07/19/18 03:00 08/11/18 03:18 Humalog SUB-Q 4 unit Q4H TRINY Administration Protocol Labetalol HCl 10 mg 07/26/18 12:37 08/08/18 05:06 Normodyne IV 10 mg Q4H PRN Administration Blood Pressure Morphine Sulfate 2 mg 08/03/18 00:21 08/11/18 03:06 Morphine IV 2 mg Q3H PRN Administration Pain, Moderate (4-6) Multi-Ingred Cream/Lotion/Oil/Oint 1 applic 08/01/18 11:56 Artificial Tears Ophth Oint OU Q4HR PRN Dry Eye(s) Pantoprazole Sodium 40 mg 08/02/18 10:00 08/10/18 09:32 Protonix IV 40 mg QDAY TRINY Administration
[2018-08-11] MEDS: DUONEB *Not for PRN Use IH SCH ×3 (08:25→21:05)
[2018-08-11] MEDS: PROTONIX IV SCH (09:16)
[2018-08-11] MEDS: NORVASC PO SCH (09:18)
--- NOTE | 2018-08-11 09:20 | Progress Note ---
Assessment and Plan Impression: * Acute kidney injury secondary multifactorial etioloiges: prerenal azotemia, sepsis related ATN, contrast induced nephropathy * Stage IV adenocarcinoma of colon * s/p right hemicolectomy, ileocolic anastamosis * Sepsis * Intraabdominal abscess w/?perforation vs necrotic tumor * Hypernatermia * Hypertension Plan: * Renal function improved, SHREYAS resolved - SCr 1.2mg/dL * Hypernatremia resolved, will stop D5W 60ml/hour * Replete K * Abx per ID * Transfuse pRBC per primary team * Consultants' recommendations reviewed * Avoid nephrotoxins * Dose medications for renal function Subjective Date of service: 08/11/18 Principal diagnosis: colon ca Interval history: Patient has no complaint Objective - Vital Signs Vital signs: Vital Signs - 12hr 08/10/18 08/11/18 08/11/18 22:00 02:46 03:05 Temperature 98.3 F Pulse Rate 93 H 93 H Pulse Rate [ Anterior Bilateral Throughout] Pulse Rate [ 90 From Monitor] Pulse Rate [ Right Radial] Respiratory 20 20 Rate Respiratory Rate [Anterior Bilateral Throughout] Blood Pressure 183/70 183/70 O2 Sat by Pulse 96 Oximetry 08/11/18 08/11/18 08/11/18 03:06 07:20 08:07 Temperature 98.7 F Pulse Rate 93 H 93 H Pulse Rate [ Anterior Bilateral Throughout] Pulse Rate [ From Monitor] Pulse Rate [ Right Radial] Respiratory 20 20 Rate Respiratory Rate [Anterior Bilateral Throughout] Blood Pressure 179/84 179/84 O2 Sat by Pulse 100 Oximetry 08/11/18 08/11/18 08/11/18 08:25 08:26 08:35 Temperature Pulse Rate Pulse Rate [ 103 H 92 H Anterior Bilateral Throughout] Pulse Rate [ From Monitor] Pulse Rate [ Right Radial] Respiratory Rate Respiratory 16 19 Rate [Anterior Bilateral Throughout] Blood Pressure O2 Sat by Pulse 100 Oximetry 08/11/18 08:45 Temperature Pulse Rate Pulse Rate [ Anterior Bilateral Throughout] Pulse Rate [ From Monitor] Pulse Rate [ 93 H Right Radial] Respiratory 20 Rate Respiratory Rate [Anterior Bilateral Throughout] Blood Pressure O2 Sat by Pulse 100 Oximetry - General Appearance General appearance: well-developed, well-nourished EENT: ATNC Respiratory: Present: Decreased Breath Sounds Cardiology: regular, S1S2 Gastrointestinal: hypoactive bowel sounds Integumentary: warm and dry Neurologic: no focal deficit Psychiatric: cooperative - Lab 08/11/18 04:11 08/12/18 03:38 Most recent lab results Calcium 8.7 mg/dL (8.4-10.2) 08/11/18 04:11 Phosphorus 3.10 mg/dL (2.5-4.5) 08/11/18 04:11 Magnesium 1.60 mg/dL (1.7-2.3) L 08/11/18 04:11 Medications & Allergies - Medications Allergies/Adverse Reactions: Allergies No Known Allergies Allergy (Unverified 07/18/18 20:42) Home Medications: Home Medications Medication Instructions Recorded Confirmed Last Taken Type Furosemide [Lasix] 20 mg PO DAILY 07/19/18 07/19/18 07/18/18 History Insulin Aspart [Novolog Flexpen] 100 unit SQ TID 07/19/18 07/19/18 07/18/18 Hi story Losartan Potassium [Cozaar] 50 mg PO DAILY 07/19/18 07/19/18 07/18/18 History Metoprolol Xl [Metoprolol 25 mg PO QDAY 07/19/18 07/19/18 07/18/18 History SUCCINATE ER TAB] Naproxen 500 mg PO BID 07/19/18 07/19/18 07/18/18 History Ranitidine HCl [Acid Control] 150 mg PO BID 07/19/18 07/19/18 07/18/18 History Active Medications: Generic Name Dose Route Start Last Admin Trade Name Freq PRN Reason Stop Dose Admin Albuterol 2.5 mg 07/24/18 20:13 07/24/18 20:31 Proventil IH 2.5 mg Q4HRT PRN Administration Shortness Of Breath Albuterol/Ipratropium 1 ampul 07/25/18 14:00 08/11/18 08:25 Duoneb *Not For Prn Use* IH 1 ampul TIDRT TRINY Administration Amlodipine Besylate 10 mg 08/09/18 16:00 08/10/18 09:31 Norvasc PO 10 mg QDAY TRINY Administration Clonidine HCl 0.3 mg 07/25/18 10:00 08/08/18 10:02 Catapres-Tts Patch TD 0.3 mg Mo TRINY Administration Dextrose 50 ml 07/19/18 02:51 D50w (25gm) Syringe IV PRN PRN Hypoglycemia Hydralazine HCl 20 mg 08/09/18 14:00 08/11/18 08:07 Apresoline IV 20 mg Q6H TRINY Administration Dextrose 1,000 mls @ 60 mls/hr 08/08/18 10:30 08/09/18 20:18 D5w IV 60 mls/hr DIRECT TRINY Administration Amino Acids/Electrolytes/Dextrose 1,560 mls @ 65 mls/hr 08/10/18 20:00 08/10/18 21:04 Tpn Adult IV 08/11/18 19:59 65 mls/hr DAILY@2000 TRINY Administration Protocol Ferric Sodium Gluconate 110 mls @ 100 mls/hr 08/11/18 10:00 Complex 125 mg/ Sodium IV 08/11/18 11:05 Chloride ONCE ONE Insulin Glargine 20 units 08/02/18 11:00 08/10/18 09:32 Lantus SUB-Q 20 units DAILY TRINY Administration Insulin Human Lispro 0 unit 07/19/18 03:00 08/11/18 07:55 Humalog SUB-Q 3 unit Q4H TRINY Administration Protocol Labetalol HCl 10 mg 07/26/18 12:37 08/08/18 05:06 Normodyne IV 10 mg Q4H PRN Administration Blood Pressure Morphine Sulfate 2 mg 08/03/18 00:21 08/11/18 03:06 Morphine IV 2 mg Q3H PRN Administration Pain, Moderate (4-6) Multi-Ingred Cream/Lotion/Oil/Oint 1 applic 08/01/18 11:56 Artificial Tears Ophth Oint OU Q4HR PRN Dry Eye(s) Pantoprazole Sodium 40 mg 08/02/18 10:00 08/10/18 09:32 Protonix IV 40 mg QDAY TRINY Administration
[2018-08-11] MEDS: LANTUS SUB-Q SCH (09:53)
[2018-08-11] MEDS ORDERED: K-DUR PO NR (10:00)
[2018-08-11] MEDS ORDERED: FERRLECIT 125 MG in NACL 0.9% 100 ML IV ONE (10:00)
--- NOTE | 2018-08-11 13:06 | Progress Note ---
Assessment and Plan Imp: 1. Colon cancer 2. Perforated viscus 3. Sepsis 4. Acute respiratory failure, hypoxia 5. Bibasilar atelectasis 6. SHREYAS Rec: 1. CXR findings likely reflect atelectasis due to hypoventilation in setting of abdominal pain/distension + bed-bound status/weakness; doubt pneumonia; would focus on incentive spirometry and mobilization w/ PT, etc. 2. Can continue the Duonebs 3. SCDs 4. Correct sodium/K per renal/primary 5. Would continue to work on improving BP control 6. We will monitor with you; pulm-meza stable Plan of care reviewed with patient/family, they understand/agree Subjective Date of service: 08/11/18 Principal diagnosis: colon ca Interval history: No events. On 2L NC. More alert today. No SOB or other complaints. Active Medications Albuterol (Proventil) 2.5 mg IH Q4HRT PRN PRN Reason: Shortness Of Breath Last Admin: 07/24/18 20:31 Dose: 2.5 mg Documented by: Albuterol/Ipratropium (Duoneb *Not For Prn Use*) 1 ampul IH TIDRT [facility] Last Admin: 08/11/18 08:25 Dose: 1 ampul Documented by: Amlodipine Besylate (Norvasc) 10 mg PO QDAY [facility] Last Admin: 08/11/18 09:18 Dose: 10 mg Documented by: Clonidine HCl (Catapres-Tts Patch) 0.3 mg TD Mo [facility] Last Admin: 08/08/18 10:02 Dose: 0.3 mg Documented by: Dextrose (D50w (25gm) Syringe) 50 ml IV PRN PRN PRN Reason: Hypoglycemia Hydralazine HCl (Apresoline) 20 mg IV Q6H [facility] Last Admin: 08/11/18 08:07 Dose: 20 mg Documented by: Amino Acids/Electrolytes/Dextrose (Tpn Adult) 1,560 mls @ 65 mls/hr IV DAILY@1999 [facility]; Protocol Stop: 08/11/18 19:59 Last Admin: 08/10/18 21:04 Dose: 65 mls/hr Documented by: Insulin Glargine (Lantus) 20 units SUB-Q DAILY [facility] Last Admin: 08/11/18 09:53 Dose: 20 units Documented by: Insulin Human Lispro (Humalog) 0 unit SUB-Q Q4H [facility]; Protocol Last Admin: 08/11/18 11:34 Dose: 3 unit Documented by: Labetalol HCl (Normodyne) 10 mg IV Q4H PRN PRN Reason: Blood Pressure Last Admin: 08/08/18 05:06 Dose: 10 mg Documented by: Morphine Sulfate (Morphine) 2 mg IV Q3H PRN PRN Reason: Pain, Moderate (4-6) Last Admin: 08/11/18 12:40 Dose: 2 mg Documented by: Multi-Ingred Cream/Lotion/Oil/Oint (Artificial Tears Ophth Oint) 1 applic OU Q4HR PRN PRN Reason: Dry Eye(s) Pantoprazole Sodium (Protonix) 40 mg IV QDAY [facility] Last Admin: 08/11/18 09:16 Dose: 40 mg Documented by: Objective Vital Signs - 12hr 08/11/18 08/11/18 08/11/18 02:46 03:05 03:06 Temperature 98.3 F Pulse Rate 93 H 93 H Pulse Rate [ Anterior Bilateral Throughout] Pulse Rate [ Right Radial] Respiratory 20 20 Rate Respiratory Rate [Anterior Bilateral Throughout] Blood Pressure 183/70 183/70 O2 Sat by Pulse 96 Oximetry 08/11/18 08/11/18 08/11/18 07:20 08:07 08:25 Temperature 98.7 F Pulse Rate 93 H 93 H Pulse Rate [ Anterior Bilateral Throughout] Pulse Rate [ Right Radial] Respiratory 20 Rate Respiratory Rate [Anterior Bilateral Throughout] Blood Pressure 179/84 179/84 O2 Sat by Pulse 100 100 Oximetry 08/11/18 08/11/18 08/11/18 08:26 08:35 09:18 Temperature Pulse Rate 112 H Pulse Rate [ 103 H 92 H Anterior Bilateral Throughout] Pulse Rate [ Right Radial] Respiratory Rate Respiratory 16 19 Rate [Anterior Bilateral Throughout] Blood Pressure 150/82 O2 Sat by Pulse Oximetry 08/11/18 08/11/18 10:00 12:40 Temperature Pulse Rate Pulse Rate [ Anterior Bilateral Throughout] Pulse Rate [ 93 H Right Radial] Respiratory 20 20 Rate Respiratory Rate [Anterior Bilateral Throughout] Blood Pressure O2 Sat by Pulse 100 Oximetry Constitutional: no acute distress, alert Eyes: non-icteric Neck: supple Effort: normal Ascultation: Bilateral: clear Cardiovascular: regular rate and rhythm (no mrg) Gastrointestinal: normoactive bowel sounds, soft, non-distended Integumentary: normal Extremities: no cyanosis, no edema, pink and warm Neurologic: normal mental status, non-focal exam, pupils equal and round, CN II- XII normal Psychiatric: mood appropriate, affect normal CBC and BMP: 08/11/18 04:11 08/11/18 04:11 ABG, PT/INR, D-dimer: ABG POC ABG pH 7.409 (7.35-7.45) 08/02/18 09:56 POC ABG pCO2 38.5 (35-45) 08/02/18 09:56 POC ABG pO2 70 (80-105) L 08/02/18 09:56 POC ABG HCO3 24.3 08/02/18 09:56 POC ABG Total CO2 25 08/02/18 09:56 POC ABG O2 Sat 94 08/02/18 09:56 PT/INR, D-dimer PT 14.5 Sec. (12.2-14.9) 07/28/18 05:27 INR 1.09 (0.87-1.13) 07/28/18 05:27 Abnormal lab findings: Abnormal Labs 07/18/18 07/18/18 07/18/18 20:28 20:48 20:48 WBC 12.3 H RBC 3.47 L Hgb 9.1 L Hct 28.9 L MCH 26 L RDW 16.1 H Plt Count 473 H Lymph % (Auto) 5.4 L [place] % (Auto) Lymph # 0.7 L [place] # Seg Neutrophils % 86.5 H Seg Neuts % (Manual) Lymphocytes % (Manual) Monocytes % (Manual) Seg Neutrophils # 10.7 H Seg Neutrophils # Man Lymphocytes # (Manual) Monocytes # (Manual) APTT POC ABG pO2 Sodium Potassium Chloride Carbon Dioxide BUN Creatinine Glucose 108 H POC Glucose 109 H Calcium Phosphorus Magnesium Iron TIBC Alkaline Phosphatase C-Reactive Protein Total Protein Albumin 3.1 L Vitamin B12 Crossmatch 07/18/18 07/18/18 07/19/18 20:48 23:12 02:50 WBC RBC 3.35 L Hgb 9.0 L Hct 27.9 L MCH 27 L RDW 15.8 H Plt Count Lymph % (Auto) [place] % (Auto) Lymph # [place] # Seg Neutrophils % Seg Neuts % (Manual) Lymphocytes % (Manual) Monocytes % (Manual) Seg Neutrophils # Seg Neutrophils # Man Lymphocytes # (Manual) Monocytes # (Manual) APTT 23.2 L POC ABG pO2 Sodium Potassium Chloride Carbon Dioxide BUN Creatinine Glucose POC Glucose 106 H Calcium Phosphorus Magnesium Iron TIBC Alkaline Phosphatase C-Reactive Protein Total Protein Albumin Vitamin B12 Crossmatch 07/19/18 07/19/18 07/19/18 02:50 08:00 11:46 WBC RBC Hgb Hct MCH RDW Plt Count Lymph % (Auto) [place] % (Auto) Lymph # [place] # Seg Neutrophils % Seg Neuts % (Manual) Lymphocytes % (Manual) Monocytes % (Manual) Seg Neutrophils # Seg Neutrophils # Man Lymphocytes # (Manual) Monocytes # (Manual) APTT POC ABG pO2 Sodium 136 L Potassium Chloride Carbon Dioxide BUN Creatinine Glucose 105 H POC Glucose 131 H 152 H Calcium Phosphorus Magnesium Iron TIBC Alkaline Phosphatase C-Reactive Protein Total Protein Albumin Vitamin B12 Crossmatch 07/19/18 07/19/18 07/19/18 13:46 15:34 20:42 WBC RBC Hgb Hct MCH RDW Plt Count Lymph % (Auto) [place] % (Auto) Lymph # [place] # Seg Neutrophils % Seg Neuts % (Manual) Lymphocytes % (Manual) Monocytes % (Manual) Seg Neutrophils # Seg Neutrophils # Man Lymphocytes # (Manual) Monocytes # (Manual) APTT POC ABG pO2 Sodium Potassium Chloride Carbon Dioxide BUN Creatinine Glucose POC Glucose 152 H 182 H 187 H Calcium Phosphorus Magnesium Iron TIBC Alkaline Phosphatase C-Reactive Protein Total Protein Albumin Vitamin B12 Crossmatch 07/19/18 07/20/18 07/20/18 23:05 02:15 06:14 WBC RBC Hgb Hct MCH RDW Plt Count Lymph % (Auto) [place] % (Auto) Lymph # [place] # Seg Neutrophils % Seg Neuts % (Manual) Lymphocytes % (Manual) Monocytes % (Manual) Seg Neutrophils # Seg Neutrophils # Man Lymphocytes # (Manual) Monocytes # (Manual) APTT POC ABG pO2 Sodium Potassium Chloride Carbon Dioxide BUN Creatinine Glucose POC Glucose 133 H 154 H 137 H Calcium Phosphorus Magnesium Iron TIBC Alkaline Phosphatase C-Reactive Protein Total Protein Albumin Vitamin B12 Crossmatch 07/20/18 07/20/18 07/20/18 06:47 06:47 12:01 WBC 11.7 H RBC 3.51 L Hgb 9.2 L Hct 29.3 L MCH 26 L RDW 15.9 H Plt Count Lymph % (Auto) 12.0 L [place] % (Auto) Lymph # [place] # Seg Neutrophils % 80.8 H Seg Neuts % (Manual) Lymphocytes % (Manual) Monocytes % (Manual) Seg Neutrophils # 9.4 H Seg Neutrophils # Man Lymphocytes # (Manual) Monocytes # (Manual) APTT POC ABG pO2 Sodium Potassium Chloride Carbon Dioxide BUN Creatinine Glucose 126 H POC Glucose 157 H Calcium 8.3 L Phosphorus Magnesium Iron TIBC Alkaline Phosphatase C-Reactive Protein Total Protein Albumin 2.8 L Vitamin B12 Crossmatch 07/20/18 07/20/18 07/20/18 16:11 19:56 23:34 WBC RBC Hgb Hct MCH RDW Plt Count Lymph % (Auto) [place] % (Auto) Lymph # [place] # Seg Neutrophils % Seg Neuts % (Manual) Lymphocytes % (Manual) Monocytes % (Manual) Seg Neutrophils # Seg Neutrophils # Man Lymphocytes # (Manual) Monocytes # (Manual) APTT POC ABG pO2 Sodium Potassium Chloride Carbon Dioxide BUN Creatinine Glucose POC Glucose 155 H 158 H 149 H Calcium Phosphorus Magnesium Iron TIBC Alkaline Phosphatase C-Reactive Protein Total Protein Albumin Vitamin B12 Crossmatch 07/21/18 07/21/18 07/21/18 04:16 08:11 11:15 WBC RBC Hgb Hct MCH RDW Plt Count Lymph % (Auto) [place] % (Auto) Lymph # [place] # Seg Neutrophils % Seg Neuts % (Manual) Lymphocytes % (Manual) Monocytes % (Manual) Seg Neutrophils # Seg Neutrophils # Man Lymphocytes # (Manual) Monocytes # (Manual) APTT POC ABG pO2 Sodium Potassium Chloride Carbon Dioxide BUN Creatinine Glucose POC Glucose 127 H 142 H 159 H Calcium Phosphorus Magnesium Iron TIBC Alkaline Phosphatase C-Reactive Protein Total Protein Albumin Vitamin B12 Crossmatch 07/21/18 07/21/18 07/21/18 16:12 18:49 23:03 WBC RBC Hgb Hct MCH RDW Plt Count Lymph % (Auto) [place] % (Auto) Lymph # [place] # Seg Neutrophils % Seg Neuts % (Manual) Lymphocytes % (Manual) Monocytes % (Manual) Seg Neutrophils # Seg Neutrophils # Man Lymphocytes # (Manual) Monocytes # (Manual) APTT POC ABG pO2 Sodium Potassium Chloride Carbon Dioxide BUN Creatinine Glucose POC Glucose 134 H 113 H 120 H Calcium Phosphorus Magnesium Iron TIBC Alkaline Phosphatase C-Reactive Protein Total Protein Albumin Vitamin B12 Crossmatch 07/22/18 07/22/18 07/22/18 05:24 08:09 11:42 WBC RBC Hgb Hct MCH RDW Plt Count Lymph % (Auto) [place] % (Auto) Lymph # [place] # Seg Neutrophils % Seg Neuts % (Manual) Lymphocytes % (Manual) Monocytes % (Manual) Seg Neutrophils # Seg Neutrophils # Man Lymphocytes # (Manual) Monocytes # (Manual) APTT POC ABG pO2 Sodium Potassium Chloride Carbon Dioxide BUN Creatinine Glucose POC Glucose 126 H 112 H 143 H Calcium Phosphorus Magnesium Iron TIBC Alkaline Phosphatase C-Reactive Protein Total Protein Albumin Vitamin B12 Crossmatch 07/22/18 07/22/18 07/22/18 13:47 16:26 22:48 WBC RBC 3.16 L Hgb 8.3 L Hct 26.5 L MCH 26 L RDW 16.6 H Plt Count Lymph % (Auto) 12.0 L [place] % (Auto) Lymph # 1.1 L [place] # Seg Neutrophils % 79.9 H Seg Neuts % (Manual) Lymphocytes % (Manual) Monocytes % (Manual) Seg Neutrophils # Seg Neutrophils # Man Lymphocytes # (Manual) Monocytes # (Manual) APTT POC ABG pO2 Sodium Potassium Chloride Carbon Dioxide BUN Creatinine Glucose POC Glucose 132 H 118 H Calcium Phosphorus Magnesium Iron TIBC Alkaline Phosphatase C-Reactive Protein Total Protein Albumin Vitamin B12 Crossmatch 07/23/18 07/23/18 07/23/18 05:01 05:39 05:39 WBC RBC 3.04 L Hgb 8.3 L Hct 25.6 L MCH 27 L RDW 16.7 H Plt Count Lymph % (Auto) 13.1 L [place] % (Auto) 8.1 H Lymph # 1.0 L [place] # Seg Neutrophils % 77.0 H Seg Neuts % (Manual) Lymphocytes % (Manual) Monocytes % (Manual) Seg Neutrophils # Seg Neutrophils # Man Lymphocytes # (Manual) Monocytes # (Manual) APTT POC ABG pO2 Sodium Potassium Chloride Carbon Dioxide BUN 22 H Creatinine Glucose 224 H POC Glucose 197 H Calcium 8.3 L Phosphorus 1.90 L Magnesium 1.60 L Iron TIBC Alkaline Phosphatase C-Reactive Protein Total Protein Albumin 2.8 L Vitamin B12 Crossmatch 07/23/18 07/23/18 07/23/18 07:37 12:10 15:41 WBC RBC Hgb Hct MCH RDW Plt Count Lymph % (Auto) [place] % (Auto) Lymph # [place] # Seg Neutrophils % Seg Neuts % (Manual) Lymphocytes % (Manual) Monocytes % (Manual) Seg Neutrophils # Seg Neutrophils # Man Lymphocytes # (Manual) Monocytes # (Manual) APTT POC ABG pO2 Sodium Potassium Chloride Carbon Dioxide BUN Creatinine Glucose POC Glucose 192 H 191 H 187 H Calcium Phosphorus Magnesium Iron TIBC Alkaline Phosphatase C-Reactive Protein Total Protein Albumin Vitamin B12 Crossmatch 07/23/18 07/24/18 07/24/18 23:12 03:12 04:34 WBC RBC Hgb Hct MCH RDW Plt Count Lymph % (Auto) [place] % (Auto) Lymph # [place] # Seg Neutrophils % Seg Neuts % (Manual) Lymphocytes % (Manual) Monocytes % (Manual) Seg Neutrophils # Seg Neutrophils # Man Lymphocytes # (Manual) Monocytes # (Manual) APTT POC ABG pO2 Sodium Potassium Chloride Carbon Dioxide BUN 25 H Creatinine Glucose 191 H POC Glucose 231 H 224 H Calcium 8.3 L Phosphorus 1.60 L Magnesium 1.60 L Iron TIBC Alkaline Phosphatase C-Reactive Protein Total Protein Albumin Vitamin B12 Crossmatch 07/24/18 07/24/18 07/24/18 08:21 12:12 16:55 WBC RBC Hgb Hct MCH RDW Plt Count Lymph % (Auto) [place] % (Auto) Lymph # [place] # Seg Neutrophils % Seg Neuts % (Manual) Lymphocytes % (Manual) Monocytes % (Manual) Seg Neutrophils # Seg Neutrophils # Man Lymphocytes # (Manual) Monocytes # (Manual) APTT POC ABG pO2 Sodium Potassium Chloride Carbon Dioxide BUN Creatinine Glucose POC Glucose 187 H 167 H 192 H Calcium Phosphorus Magnesium Iron TIBC Alkaline Phosphatase C-Reactive Protein Total Protein Albumin Vitamin B12 Crossmatch 07/24/18 07/24/18 07/25/18 20:30 23:38 02:44 WBC RBC Hgb Hct MCH RDW Plt Count Lymph % (Auto) [place] % (Auto) Lymph # [place] # Seg Neutrophils % Seg Neuts % (Manual) Lymphocytes % (Manual) Monocytes % (Manual) Seg Neutrophils # Seg Neutrophils # Man Lymphocytes # (Manual) Monocytes # (Manual) APTT POC ABG pO2 Sodium Potassium Chloride Carbon Dioxide BUN Creatinine Glucose POC Glucose 192 H 181 H 196 H Calcium Phosphorus Magnesium Iron TIBC Alkaline Phosphatase C-Reactive Protein Total Protein Albumin Vitamin B12 Crossmatch 07/25/18 07/25/18 07/25/18 03:58 03:58 06:35 WBC RBC Hgb Hct MCH RDW Plt Count Lymph % (Auto) [place] % (Auto) Lymph # [place] # Seg Neutrophils % Seg Neuts % (Manual) Lymphocytes % (Manual) Monocytes % (Manual) Seg Neutrophils # Seg Neutrophils # Man Lymphocytes # (Manual) Monocytes # (Manual) APTT POC ABG pO2 Sodium Potassium Chloride Carbon Dioxide BUN 23 H Creatinine Glucose 197 H POC Glucose 203 H Calcium Phosphorus 2.30 L D Magnesium Iron TIBC Alkaline Phosphatase C-Reactive Protein 4.30 H Total Protein Albumin Vitamin B12 Crossmatch 07/25/18 07/25/18 07/25/18 12:04 16:33 19:50 WBC RBC Hgb Hct MCH RDW Plt Count Lymph % (Auto) [place] % (Auto) Lymph # [place] # Seg Neutrophils % Seg Neuts % (Manual) Lymphocytes % (Manual) Monocytes % (Manual) Seg Neutrophils # Seg Neutrophils # Man Lymphocytes # (Manual) Monocytes # (Manual) APTT POC ABG pO2 Sodium Potassium Chloride Carbon Dioxide BUN Creatinine Glucose POC Glucose 153 H 204 H 213 H Calcium Phosphorus Magnesium Iron TIBC Alkaline Phosphatase C-Reactive Protein Total Protein Albumin Vitamin B12 Crossmatch 07/25/18 07/26/18 07/26/18 22:52 02:38 04:13 WBC RBC Hgb Hct MCH RDW Plt Count Lymph % (Auto) [place] % (Auto) Lymph # [place] # Seg Neutrophils % Seg Neuts % (Manual) Lymphocytes % (Manual) Monocytes % (Manual) Seg Neutrophils # Seg Neutrophils # Man Lymphocytes # (Manual) Monocytes # (Manual) APTT POC ABG pO2 Sodium Potassium Chloride Carbon Dioxide BUN 22 H Creatinine Glucose 180 H POC Glucose 182 H 169 H Calcium 8.3 L Phosphorus Magnesium Iron TIBC Alkaline Phosphatase C-Reactive Protein Total Protein Albumin Vitamin B12 Crossmatch 07/26/18 07/26/18 07/27/18 06:37 22:45 02:44 WBC RBC Hgb Hct MCH RDW Plt Count Lymph % (Auto) [place] % (Auto) Lymph # [place] # Seg Neutrophils % Seg Neuts % (Manual) Lymphocytes % (Manual) Monocytes % (Manual) Seg Neutrophils # Seg Neutrophils # Man Lymphocytes # (Manual) Monocytes # (Manual) APTT POC ABG pO2 Sodium Potassium Chloride Carbon Dioxide BUN 24 H Creatinine Glucose 195 H POC Glucose 156 H 237 H Calcium Phosphorus Magnesium Iron TIBC Alkaline Phosphatase C-Reactive Protein Total Protein Albumin Vitamin B12 Crossmatch 07/27/18 07/27/18 07/27/18 02:51 06:27 10:45 WBC RBC Hgb Hct MCH RDW Plt Count Lymph % (Auto) [place] % (Auto) Lymph # [place] # Seg Neutrophils % Seg Neuts % (Manual) Lymphocytes % (Manual) Monocytes % (Manual) Seg Neutrophils # Seg Neutrophils # Man Lymphocytes # (Manual) Monocytes # (Manual) APTT POC ABG pO2 Sodium Potassium Chloride Carbon Dioxide BUN Creatinine Glucose POC Glucose 166 H 212 H 177 H Calcium Phosphorus Magnesium Iron TIBC Alkaline Phosphatase C-Reactive Protein Total Protein Albumin Vitamin B12 Crossmatch 07/27/18 07/28/18 07/28/18 16:14 00:12 05:06 WBC RBC Hgb Hct MCH RDW Plt Count Lymph % (Auto) [place] % (Auto) Lymph # [place] # Seg Neutrophils % Seg Neuts % (Manual) Lymphocytes % (Manual) Monocytes % (Manual) Seg Neutrophils # Seg Neutrophils # Man Lymphocytes # (Manual) Monocytes # (Manual) APTT POC ABG pO2 Sodium Potassium Chloride Carbon Dioxide BUN Creatinine Glucose POC Glucose 225 H 220 H 214 H Calcium Phosphorus Magnesium Iron TIBC Alkaline Phosphatase C-Reactive Protein Total Protein Albumin Vitamin B12 Crossmatch 07/28/18 07/28/18 07/28/18 05:27 08:09 11:05 WBC RBC Hgb Hct MCH RDW Plt Count Lymph % (Auto) [place] % (Auto) Lymph # [place] # Seg Neutrophils % Seg Neuts % (Manual) Lymphocytes % (Manual) Monocytes % (Manual) Seg Neutrophils # Seg Neutrophils # Man Lymphocytes # (Manual) Monocytes # (Manual) APTT POC ABG pO2 Sodium Potassium Chloride Carbon Dioxide BUN 25 H Creatinine 0.6 L Glucose 213 H POC Glucose 228 H 258 H Calcium Phosphorus Magnesium Iron TIBC Alkaline Phosphatase C-Reactive Protein Total Protein Albumin Vitamin B12 Crossmatch 07/28/18 07/28/18 07/28/18 12:19 17:40 17:40 WBC RBC 2.87 L Hgb 7.7 L Hct 24.9 L MCH 27 L RDW 18.0 H Plt Count Lymph % (Auto) [place] % (Auto) Lymph # [place] # Seg Neutrophils % Seg Neuts % (Manual) Lymphocytes % (Manual) Monocytes % (Manual) Seg Neutrophils # Seg Neutrophils # Man Lymphocytes # (Manual) Monocytes # (Manual) APTT POC ABG pO2 Sodium Potassium Chloride Carbon Dioxide BUN Creatinine Glucose POC Glucose 209 H Calcium Phosphorus Magnesium Iron TIBC Alkaline Phosphatase C-Reactive Protein Total Protein Albumin Vitamin B12 Crossmatch See Detail 07/28/18 07/28/18 07/29/18 20:00 23:48 02:29 WBC RBC Hgb Hct MCH RDW Plt Count Lymph % (Auto) [place] % (Auto) Lymph # [place] # Seg Neutrophils % Seg Neuts % (Manual) Lymphocytes % (Manual) Monocytes % (Manual) Seg Neutrophils # Seg Neutrophils # Man Lymphocytes # (Manual) Monocytes # (Manual) APTT POC ABG pO2 Sodium Potassium Chloride Carbon Dioxide BUN Creatinine Glucose POC Glucose 192 H 211 H 217 H Calcium Phosphorus Magnesium Iron TIBC Alkaline Phosphatase C-Reactive Protein Total Protein Albumin Vitamin B12 Crossmatch 07/29/18 07/29/18 07/29/18 05:26 05:26 11:33 WBC RBC 3.20 L Hgb 8.5 L Hct 26.8 L MCH 27 L RDW 17.5 H Plt Count Lymph % (Auto) [place] % (Auto) 10.8 H Lymph # [place] # 1.2 H Seg Neutrophils % 70.8 H Seg Neuts % (Manual) Lymphocytes % (Manual) Monocytes % (Manual) Seg Neutrophils # Seg Neutrophils # Man Lymphocytes # (Manual) Monocytes # (Manual) APTT POC ABG pO2 Sodium Potassium 5.3 H Chloride Carbon Dioxide BUN 25 H Creatinine 0.6 L Glucose 227 H POC Glucose 202 H Calcium Phosphorus Magnesium Iron TIBC Alkaline Phosphatase C-Reactive Protein Total Protein Albumin Vitamin B12 Crossmatch 07/29/18 07/29/18 07/30/18 18:35 23:01 04:27 WBC RBC Hgb Hct MCH RDW Plt Count Lymph % (Auto) [place] % (Auto) Lymph # [place] # Seg Neutrophils % Seg Neuts % (Manual) Lymphocytes % (Manual) Monocytes % (Manual) Seg Neutrophils # Seg Neutrophils # Man Lymphocytes # (Manual) Monocytes # (Manual) APTT POC ABG pO2 Sodium Potassium Chloride Carbon Dioxide BUN Creatinine Glucose POC Glucose 194 H 218 H 176 H Calcium Phosphorus Magnesium Iron TIBC Alkaline Phosphatase C-Reactive Protein Total Protein Albumin Vitamin B12 Crossmatch 07/30/18 07/30/18 07/30/18 10:12 11:00 11:00 WBC RBC Hgb Hct MCH RDW 17.9 H Plt Count Lymph % (Auto) 12.3 L [place] % (Auto) 10.2 H Lymph # [place] # 1.0 H Seg Neutrophils % 75.4 H Seg Neuts % (Manual) Lymphocytes % (Manual) Monocytes % (Manual) Seg Neutrophils # Seg Neutrophils # Man Lymphocytes # (Manual) Monocytes # (Manual) APTT POC ABG pO2 Sodium Potassium Chloride Carbon Dioxide BUN 22 H Creatinine Glucose 269 H POC Glucose 265 H Calcium Phosphorus Magnesium Iron TIBC Alkaline Phosphatase C-Reactive Protein Total Protein Albumin Vitamin B12 Crossmatch 07/30/18 07/30/18 07/30/18 15:11 17:21 21:47 WBC RBC Hgb Hct MCH RDW Plt Count Lymph % (Auto) [place] % (Auto) Lymph # [place] # Seg Neutrophils % Seg Neuts % (Manual) Lymphocytes % (Manual) Monocytes % (Manual) Seg Neutrophils # Seg Neutrophils # Man Lymphocytes # (Manual) Monocytes # (Manual) APTT POC ABG pO2 Sodium Potassium Chloride Carbon Dioxide BUN Creatinine Glucose POC Glucose 208 H 177 H 146 H Calcium Phosphorus Magnesium Iron TIBC Alkaline Phosphatase C-Reactive Protein Total Protein Albumin Vitamin B12 Crossmatch 07/31/18 07/31/18 07/31/18 02:13 03:56 10:15 WBC RBC Hgb Hct MCH RDW Plt Count Lymph % (Auto) [place] % (Auto) Lymph # [place] # Seg Neutrophils % Seg Neuts % (Manual) Lymphocytes % (Manual) Monocytes % (Manual) Seg Neutrophils # Seg Neutrophils # Man Lymphocytes # (Manual) Monocytes # (Manual) APTT POC ABG pO2 Sodium Potassium Chloride Carbon Dioxide BUN 26 H Creatinine 0.6 L Glucose 201 H POC Glucose 208 H 216 H Calcium Phosphorus Magnesium Iron TIBC Alkaline Phosphatase C-Reactive Protein Total Protein Albumin Vitamin B12 Crossmatch 07/31/18 07/31/18 08/01/18 15:42 22:34 03:09 WBC RBC Hgb Hct MCH RDW Plt Count Lymph % (Auto) [place] % (Auto) Lymph # [place] # Seg Neutrophils % Seg Neuts % (Manual) Lymphocytes % (Manual) Monocytes % (Manual) Seg Neutrophils # Seg Neutrophils # Man Lymphocytes # (Manual) Monocytes # (Manual) APTT POC ABG pO2 Sodium Potassium Chloride Carbon Dioxide BUN Creatinine Glucose POC Glucose 205 H 236 H 253 H Calcium Phosphorus Magnesium Iron TIBC Alkaline Phosphatase C-Reactive Protein Total Protein Albumin Vitamin B12 Crossmatch 08/01/18 08/01/18 08/01/18 04:19 06:14 07:18 WBC RBC Hgb Hct MCH RDW Plt Count Lymph % (Auto) [place] % (Auto) Lymph # [place] # Seg Neutrophils % Seg Neuts % (Manual) Lymphocytes % (Manual) Monocytes % (Manual) Seg Neutrophils # Seg Neutrophils # Man Lymphocytes # (Manual) Monocytes # (Manual) APTT POC ABG pO2 Sodium Potassium 3.3 L Chloride Carbon Dioxide BUN 26 H Creatinine 0.5 L Glucose 238 H POC Glucose 257 H Calcium 7.1 L D Phosphorus Magnesium Iron TIBC Alkaline Phosphatase C-Reactive Protein Total Protein Albumin Vitamin B12 Crossmatch See Detail 08/01/18 08/01/18 08/01/18 11:41 12:13 16:28 WBC RBC Hgb Hct MCH RDW Plt Count Lymph % (Auto) [place] % (Auto) Lymph # [place] # Seg Neutrophils % Seg Neuts % (Manual) Lymphocytes % (Manual) Monocytes % (Manual) Seg Neutrophils # Seg Neutrophils # Man Lymphocytes # (Manual) Monocytes # (Manual) APTT POC ABG pO2 339 H Sodium Potassium Chloride Carbon Dioxide BUN Creatinine Glucose POC Glucose 184 H 305 H Calcium Phosphorus Magnesium Iron TIBC Alkaline Phosphatase C-Reactive Protein Total Protein Albumin Vitamin B12 Crossmatch 08/01/18 08/01/18 08/02/18 18:25 21:09 02:01 WBC RBC Hgb Hct MCH RDW Plt Count Lymph % (Auto) [place] % (Auto) Lymph # [place] # Seg Neutrophils % Seg Neuts % (Manual) Lymphocytes % (Manual) Monocytes % (Manual) Seg Neutrophils # Seg Neutrophils # Man Lymphocytes # (Manual) Monocytes # (Manual) APTT POC ABG pO2 Sodium Potassium Chloride Carbon Dioxide BUN Creatinine Glucose POC Glucose 338 H 328 H 350 H Calcium Phosphorus Magnesium Iron TIBC Alkaline Phosphatase C-Reactive Protein Total Protein Albumin Vitamin B12 Crossmatch 08/02/18 08/02/18 08/02/18 04:26 04:26 05:47 WBC 20.9 H RBC Hgb Hct MCH RDW 20.1 H Plt Count Lymph % (Auto) [place] % (Auto) Lymph # [place] # Seg Neutrophils % Seg Neuts % (Manual) 90.0 H Lymphocytes % (Manual) 7.0 L Monocytes % (Manual) Seg Neutrophils # Seg Neutrophils # Man 18.8 H Lymphocytes # (Manual) Monocytes # (Manual) APTT POC ABG pO2 Sodium 133 L Potassium Chloride 97.5 L Carbon Dioxide BUN 48 H Creatinine Glucose 347 H POC Glucose 351 H Calcium 7.8 L Phosphorus Magnesium Iron TIBC Alkaline Phosphatase C-Reactive Protein Total Protein 5.4 L Albumin 2.2 L Vitamin B12 Crossmatch 08/02/18 08/02/18 08/02/18 05:52 09:56 10:02 WBC RBC Hgb Hct MCH RDW Plt Count Lymph % (Auto) [place] % (Auto) Lymph # [place] # Seg Neutrophils % Seg Neuts % (Manual) Lymphocytes % (Manual) Monocytes % (Manual) Seg Neutrophils # Seg Neutrophils # Man Lymphocytes # (Manual) Monocytes # (Manual) APTT POC ABG pO2 74 L 70 L Sodium Potassium Chloride Carbon Dioxide BUN Creatinine Glucose POC Glucose 351 H Calcium Phosphorus Magnesium Iron TIBC Alkaline Phosphatase C-Reactive Protein Total Protein Albumin Vitamin B12 Crossmatch 08/02/18 08/02/18 08/03/18 16:34 22:28 03:13 WBC RBC Hgb Hct MCH RDW Plt Count Lymph % (Auto) [place] % (Auto) Lymph # [place] # Seg Neutrophils % Seg Neuts % (Manual) Lymphocytes % (Manual) Monocytes % (Manual) Seg Neutrophils # Seg Neutrophils # Man Lymphocytes # (Manual) Monocytes # (Manual) APTT POC ABG pO2 Sodium Potassium Chloride Carbon Dioxide BUN Creatinine Glucose POC Glucose 250 H 175 H 189 H Calcium Phosphorus Magnesium Iron TIBC Alkaline Phosphatase C-Reactive Protein Total Protein Albumin Vitamin B12 Crossmatch 08/03/18 08/03/18 08/03/18 04:42 04:42 04:42 WBC 16.5 H RBC 3.43 L Hgb 9.6 L Hct MCH RDW 20.2 H Plt Count Lymph % (Auto) 7.9 L [place] % (Auto) 10.8 H Lymph # [place] # 1.8 H Seg Neutrophils % 80.5 H Seg Neuts % (Manual) Lymphocytes % (Manual) Monocytes % (Manual) Seg Neutrophils # 13.3 H Seg Neutrophils # Man Lymphocytes # (Manual) Monocytes # (Manual) APTT POC ABG pO2 Sodium Potassium Chloride Carbon Dioxide BUN 69 H Creatinine 2.0 H D Glucose 163 H POC Glucose Calcium 7.9 L Phosphorus 6.80 H D Magnesium 2.40 H Iron TIBC Alkaline Phosphatase C-Reactive Protein Total Protein 5.5 L Albumin 2.5 L Vitamin B12 Crossmatch 08/03/18 08/03/18 08/03/18 06:21 08:34 10:16 WBC RBC Hgb Hct MCH RDW Plt Count Lymph % (Auto) [place] % (Auto) Lymph # [place] # Seg Neutrophils % Seg Neuts % (Manual) Lymphocytes % (Manual) Monocytes % (Manual) Seg Neutrophils # Seg Neutrophils # Man Lymphocytes # (Manual) Monocytes # (Manual) APTT POC ABG pO2 Sodium Potassium Chloride Carbon Dioxide BUN Creatinine Glucose POC Glucose 163 H 129 H 134 H Calcium Phosphorus Magnesium Iron TIBC Alkaline Phosphatase C-Reactive Protein Total Protein Albumin Vitamin B12 Crossmatch 08/03/18 08/03/18 08/04/18 14:18 21:44 00:19 WBC RBC Hgb Hct MCH RDW Plt Count Lymph % (Auto) [place] % (Auto) Lymph # [place] # Seg Neutrophils % Seg Neuts % (Manual) Lymphocytes % (Manual) Monocytes % (Manual) Seg Neutrophils # Seg Neutrophils # Man Lymphocytes # (Manual) Monocytes # (Manual) APTT POC ABG pO2 Sodium Potassium Chloride Carbon Dioxide BUN Creatinine Glucose POC Glucose 199 H 189 H 162 H Calcium Phosphorus Magnesium Iron TIBC Alkaline Phosphatase C-Reactive Protein Total Protein Albumin Vitamin B12 Crossmatch 08/04/18 08/04/18 08/04/18 04:07 04:15 04:15 WBC 11.1 H RBC 2.93 L Hgb 8.5 L Hct 25.7 L MCH RDW 20.5 H Plt Count Lymph % (Auto) 7.7 L [place] % (Auto) 10.3 H Lymph # 0.9 L [place] # 1.1 H Seg Neutrophils % 80.6 H Seg Neuts % (Manual) Lymphocytes % (Manual) Monocytes % (Manual) Seg Neutrophils # 8.9 H Seg Neutrophils # Man Lymphocytes # (Manual) Monocytes # (Manual) APTT POC ABG pO2 Sodium Potassium Chloride Carbon Dioxide BUN 89 H Creatinine 2.3 H Glucose 196 H POC Glucose 211 H Calcium 7.7 L Phosphorus 6.60 H Magnesium 2.50 H Iron TIBC Alkaline Phosphatase C-Reactive Protein Total Protein Albumin Vitamin B12 Crossmatch 08/04/18 08/04/18 08/04/18 07:56 10:17 14:06 WBC RBC Hgb Hct MCH RDW Plt Count Lymph % (Auto) [place] % (Auto) Lymph # [place] # Seg Neutrophils % Seg Neuts % (Manual) Lymphocytes % (Manual) Monocytes % (Manual) Seg Neutrophils # Seg Neutrophils # Man Lymphocytes # (Manual) Monocytes # (Manual) APTT POC ABG pO2 Sodium Potassium Chloride Carbon Dioxide BUN Creatinine Glucose POC Glucose 229 H 221 H 182 H Calcium Phosphorus Magnesium Iron TIBC Alkaline Phosphatase C-Reactive Protein Total Protein Albumin Vitamin B12 Crossmatch 08/04/18 08/05/18 08/05/18 20:10 01:26 05:23 WBC RBC Hgb Hct MCH RDW Plt Count Lymph % (Auto) [place] % (Auto) Lymph # [place] # Seg Neutrophils % Seg Neuts % (Manual) Lymphocytes % (Manual) Monocytes % (Manual) Seg Neutrophils # Seg Neutrophils # Man Lymphocytes # (Manual) Monocytes # (Manual) APTT POC ABG pO2 Sodium 147 H Potassium Chloride 111.9 H Carbon Dioxide BUN 94 H Creatinine 2.1 H Glucose 158 H POC Glucose 201 H 170 H Calcium 7.8 L Phosphorus Magnesium 2.40 H Iron TIBC Alkaline Phosphatase C-Reactive Protein Total Protein Albumin Vitamin B12 Crossmatch 08/05/18 08/05/18 08/05/18 05:23 05:42 08:21 WBC RBC 2.96 L Hgb 8.5 L Hct 26.0 L MCH RDW 19.9 H Plt Count Lymph % (Auto) [place] % (Auto) Lymph # [place] # Seg Neutrophils % Seg Neuts % (Manual) 78.0 H Lymphocytes % (Manual) 11.0 L Monocytes % (Manual) 10.0 H Seg Neutrophils # Seg Neutrophils # Man Lymphocytes # (Manual) 1.0 L Monocytes # (Manual) 0.9 H APTT POC ABG pO2 Sodium Potassium Chloride Carbon Dioxide BUN Creatinine Glucose POC Glucose 166 H 178 H Calcium Phosphorus Magnesium Iron TIBC Alkaline Phosphatase C-Reactive Protein Total Protein Albumin Vitamin B12 Crossmatch 08/05/18 08/05/18 08/05/18 11:11 15:53 20:15 WBC RBC Hgb Hct MCH RDW Plt Count Lymph % (Auto) [place] % (Auto) Lymph # [place] # Seg Neutrophils % Seg Neuts % (Manual) Lymphocytes % (Manual) Monocytes % (Manual) Seg Neutrophils # Seg Neutrophils # Man Lymphocytes # (Manual) Monocytes # (Manual) APTT POC ABG pO2 Sodium Potassium Chloride Carbon Dioxide BUN Creatinine Glucose POC Glucose 200 H 157 H 194 H Calcium Phosphorus Magnesium Iron TIBC Alkaline Phosphatase C-Reactive Protein Total Protein Albumin Vitamin B12 Crossmatch 08/05/18 08/06/1819 22:32 04:37 04:41 WBC RBC Hgb Hct MCH RDW Plt Count Lymph % (Auto) [place] % (Auto) Lymph # [place] # Seg Neutrophils % Seg Neuts % (Manual) Lymphocytes % (Manual) Monocytes % (Manual) Seg Neutrophils # Seg Neutrophils # Man Lymphocytes # (Manual) Monocytes # (Manual) APTT POC ABG pO2 Sodium 150 H Potassium Chloride 114.5 H Carbon Dioxide BUN 89 H Creatinine 1.9 H Glucose 196 H POC Glucose 209 H 207 H Calcium 8.3 L Phosphorus Magnesium Iron TIBC Alkaline Phosphatase C-Reactive Protein Total Protein Albumin Vitamin B12 Crossmatch 08/06/18 08/06/18 08/06/18 04:41 07:42 11:59 WBC RBC 3.09 L Hgb 8.7 L Hct 26.9 L MCH RDW 19.7 H Plt Count Lymph % (Auto) [place] % (Auto) Lymph # [place] # Seg Neutrophils % Seg Neuts % (Manual) 81.0 H Lymphocytes % (Manual) 12.0 L Monocytes % (Manual) Seg Neutrophils # Seg Neutrophils # Man Lymphocytes # (Manual) 0.9 L Monocytes # (Manual) APTT POC ABG pO2 Sodium Potassium Chloride Carbon Dioxide BUN Creatinine Glucose POC Glucose 178 H 195 H Calcium Phosphorus Magnesium Iron TIBC Alkaline Phosphatase C-Reactive Protein Total Protein Albumin Vitamin B12 Crossmatch 08/06/18 08/06/18 08/07/18 14:30 21:41 02:30 WBC RBC Hgb Hct MCH RDW Plt Count Lymph % (Auto) [place] % (Auto) Lymph # [place] # Seg Neutrophils % Seg Neuts % (Manual) Lymphocytes % (Manual) Monocytes % (Manual) Seg Neutrophils # Seg Neutrophils # Man Lymphocytes # (Manual) Monocytes # (Manual) APTT POC ABG pO2 Sodium Potassium Chloride Carbon Dioxide BUN Creatinine Glucose POC Glucose 184 H 181 H 202 H Calcium Phosphorus Magnesium Iron TIBC Alkaline Phosphatase C-Reactive Protein Total Protein Albumin Vitamin B12 Crossmatch 08/07/18 08/07/18 08/07/18 04:00 04:00 04:00 WBC RBC Hgb Hct MCH RDW 20.0 H Plt Count Lymph % (Auto) [place] % (Auto) Lymph # [place] # Seg Neutrophils % Seg Neuts % (Manual) 78.0 H Lymphocytes % (Manual) 10.0 L Monocytes % (Manual) Seg Neutrophils # Seg Neutrophils # Man Lymphocytes # (Manual) 0.9 L Monocytes # (Manual) APTT POC ABG pO2 Sodium 152 H Potassium Chloride 113.2 H Carbon Dioxide BUN 81 H Creatinine 1.7 H Glucose 203 H POC Glucose Calcium Phosphorus Magnesium Iron 17 L TIBC 122 L Alkaline Phosphatase C-Reactive Protein Total Protein Albumin 2.3 L Vitamin B12 1012 H Crossmatch 08/07/18 08/07/18 08/07/18 06:29 07:19 11:00 WBC RBC Hgb Hct MCH RDW Plt Count Lymph % (Auto) [place] % (Auto) Lymph # [place] # Seg Neutrophils % Seg Neuts % (Manual) Lymphocytes % (Manual) Monocytes % (Manual) Seg Neutrophils # Seg Neutrophils # Man Lymphocytes # (Manual) Monocytes # (Manual) APTT POC ABG pO2 Sodium Potassium Chloride Carbon Dioxide BUN Creatinine Glucose POC Glucose 226 H 240 H 174 H Calcium Phosphorus Magnesium Iron TIBC Alkaline Phosphatase C-Reactive Protein Total Protein Albumin Vitamin B12 Crossmatch 08/07/18 08/07/18 08/08/18 15:43 18:09 02:13 WBC RBC Hgb Hct MCH RDW Plt Count Lymph % (Auto) [place] % (Auto) Lymph # [place] # Seg Neutrophils % Seg Neuts % (Manual) Lymphocytes % (Manual) Monocytes % (Manual) Seg Neutrophils # Seg Neutrophils # Man Lymphocytes # (Manual) Monocytes # (Manual) APTT POC ABG pO2 Sodium Potassium Chloride Carbon Dioxide BUN Creatinine Glucose POC Glucose 201 H 210 H 229 H Calcium Phosphorus Magnesium Iron TIBC Alkaline Phosphatase C-Reactive Protein Total Protein Albumin Vitamin B12 Crossmatch 08/08/18 08/08/18 08/08/18 08:00 10:42 14:34 WBC RBC Hgb Hct MCH RDW Plt Count Lymph % (Auto) [place] % (Auto) Lymph # [place] # Seg Neutrophils % Seg Neuts % (Manual) Lymphocytes % (Manual) Monocytes % (Manual) Seg Neutrophils # Seg Neutrophils # Man Lymphocytes # (Manual) Monocytes # (Manual) APTT POC ABG pO2 Sodium Potassium Chloride Carbon Dioxide BUN Creatinine Glucose POC Glucose 254 H 186 H 171 H Calcium Phosphorus Magnesium Iron TIBC Alkaline Phosphatase C-Reactive Protein Total Protein Albumin Vitamin B12 Crossmatch 08/08/18 08/08/18 08/08/18 19:59 23:04 Unknown WBC RBC Hgb Hct MCH RDW Plt Count Lymph % (Auto) [place] % (Auto) Lymph # [place] # Seg Neutrophils % Seg Neuts % (Manual) Lymphocytes % (Manual) Monocytes % (Manual) Seg Neutrophils # Seg Neutrophils # Man Lymphocytes # (Manual) Monocytes # (Manual) APTT POC ABG pO2 Sodium 153 H Potassium Chloride 115.1 H Carbon Dioxide BUN 74 H Creatinine 1.4 H Glucose 255 H POC Glucose 203 H 233 H Calcium Phosphorus 2.40 L Magnesium Iron TIBC Alkaline Phosphatase C-Reactive Protein Total Protein Albumin Vitamin B12 Crossmatch 08/09/18 08/09/18 08/09/18 02:27 05:30 05:30 WBC RBC 3.31 L Hgb 9.6 L Hct 29.0 L MCH RDW 19.6 H Plt Count Lymph % (Auto) [place] % (Auto) Lymph # [place] # Seg Neutrophils % Seg Neuts % (Manual) Lymphocytes % (Manual) Monocytes % (Manual) Seg Neutrophils # Seg Neutrophils # Man Lymphocytes # (Manual) Monocytes # (Manual) APTT POC ABG pO2 Sodium 150 H Potassium Chloride 112.8 H Carbon Dioxide 21 L BUN 72 H Creatinine 1.6 H Glucose 252 H POC Glucose 264 H Calcium Phosphorus Magnesium 1.60 L Iron TIBC Alkaline Phosphatase C-Reactive Protein Total Protein Albumin 2.6 L Vitamin B12 Crossmatch 08/09/18 08/09/18 08/09/18 07:50 10:14 10:43 WBC RBC Hgb Hct MCH RDW Plt Count Lymph % (Auto) [place] % (Auto) Lymph # [place] # Seg Neutrophils % Seg Neuts % (Manual) Lymphocytes % (Manual) Monocytes % (Manual) Seg Neutrophils # Seg Neutrophils # Man Lymphocytes # (Manual) Monocytes # (Manual) APTT POC ABG pO2 Sodium Potassium Chloride Carbon Dioxide BUN Creatinine Glucose POC Glucose 258 H 221 H Calcium Phosphorus Magnesium 1.40 L Iron TIBC Alkaline Phosphatase C-Reactive Protein Total Protein Albumin Vitamin B12 Crossmatch 08/09/18 08/09/18 08/09/18 11:31 14:26 19:06 WBC RBC Hgb Hct MCH RDW Plt Count Lymph % (Auto) [place] % (Auto) Lymph # [place] # Seg Neutrophils % Seg Neuts % (Manual) Lymphocytes % (Manual) Monocytes % (Manual) Seg Neutrophils # Seg Neutrophils # Man Lymphocytes # (Manual) Monocytes # (Manual) APTT POC ABG pO2 Sodium Potassium Chloride Carbon Dioxide BUN Creatinine Glucose POC Glucose 240 H 242 H 198 H Calcium Phosphorus Magnesium Iron TIBC Alkaline Phosphatase C-Reactive Protein Total Protein Albumin Vitamin B12 Crossmatch 08/09/18 08/10/18 08/10/18 22:16 02:39 04:08 WBC RBC 3.18 L Hgb 8.7 L Hct 27.7 L MCH RDW 19.9 H Plt Count Lymph % (Auto) [place] % (Auto) Lymph # [place] # Seg Neutrophils % Seg Neuts % (Manual) Lymphocytes % (Manual) Monocytes % (Manual) Seg Neutrophils # Seg Neutrophils # Man Lymphocytes # (Manual) Monocytes # (Manual) APTT POC ABG pO2 Sodium Potassium Chloride Carbon Dioxide BUN Creatinine Glucose POC Glucose 188 H 196 H Calcium Phosphorus Magnesium Iron TIBC Alkaline Phosphatase C-Reactive Protein Total Protein Albumin Vitamin B12 Crossmatch 08/10/18 08/10/18 08/10/18 04:08 07:14 09:28 WBC RBC Hgb Hct MCH RDW Plt Count Lymph % (Auto) [place] % (Auto) Lymph # [place] # Seg Neutrophils % Seg Neuts % (Manual) Lymphocytes % (Manual) Monocytes % (Manual) Seg Neutrophils # Seg Neutrophils # Man Lymphocytes # (Manual) Monocytes # (Manual) APTT POC ABG pO2 Sodium 147 H Potassium 3.3 L Chloride 110.0 H Carbon Dioxide BUN 65 H Creatinine 1.3 H Glucose 199 H POC Glucose 194 H 253 H Calcium Phosphorus Magnesium Iron TIBC Alkaline Phosphatase 147 H C-Reactive Protein Total Protein Albumin 2.6 L Vitamin B12 Crossmatch 08/10/18 08/10/18 08/10/18 11:09 14:55 18:35 WBC RBC Hgb Hct MCH RDW Plt Count Lymph % (Auto) [place] % (Auto) Lymph # [place] # Seg Neutrophils % Seg Neuts % (Manual) Lymphocytes % (Manual) Monocytes % (Manual) Seg Neutrophils # Seg Neutrophils # Man Lymphocytes # (Manual) Monocytes # (Manual) APTT POC ABG pO2 Sodium Potassium Chloride Carbon Dioxide BUN Creatinine Glucose POC Glucose 321 H 230 H 116 H Calcium Phosphorus Magnesium Iron TIBC Alkaline Phosphatase C-Reactive Protein Total Protein Albumin Vitamin B12 Crossmatch 08/10/18 08/11/18 08/11/18 23:33 03:15 04:11 WBC RBC 2.85 L Hgb 8.1 L Hct 24.6 L MCH RDW 19.8 H Plt Count Lymph % (Auto) [place] % (Auto) Lymph # [place] # Seg Neutrophils % Seg Neuts % (Manual) Lymphocytes % (Manual) Monocytes % (Manual) Seg Neutrophils # Seg Neutrophils # Man Lymphocytes # (Manual) Monocytes # (Manual) APTT POC ABG pO2 Sodium Potassium Chloride Carbon Dioxide BUN Creatinine Glucose POC Glucose 174 H 216 H Calcium Phosphorus Magnesium Iron TIBC Alkaline Phosphatase C-Reactive Protein Total Protein Albumin Vitamin B12 Crossmatch 08/11/18 08/11/18 08/11/18 04:11 07:21 09:55 WBC RBC Hgb Hct MCH RDW Plt Count Lymph % (Auto) [place] % (Auto) Lymph # [place] # Seg Neutrophils % Seg Neuts % (Manual) Lymphocytes % (Manual) Monocytes % (Manual) Seg Neutrophils # Seg Neutrophils # Man Lymphocytes # (Manual) Monocytes # (Manual) APTT POC ABG pO2 Sodium Potassium 3.1 L Chloride 108.2 H Carbon Dioxide 21 L BUN 56 H Creatinine Glucose 225 H POC Glucose 199 H 204 H Calcium Phosphorus Magnesium 1.60 L Iron TIBC Alkaline Phosphatase 159 H C-Reactive Protein Total Protein Albumin 2.4 L Vitamin B12 Crossmatch 08/11/18 11:20 WBC RBC Hgb Hct MCH RDW Plt Count Lymph % (Auto) [place] % (Auto) Lymph # [place] # Seg Neutrophils % Seg Neuts % (Manual) Lymphocytes % (Manual) Monocytes % (Manual) Seg Neutrophils # Seg Neutrophils # Man Lymphocytes # (Manual) Monocytes # (Manual) APTT POC ABG pO2 Sodium Potassium Chloride Carbon Dioxide BUN Creatinine Glucose POC Glucose 191 H Calcium Phosphorus Magnesium Iron TIBC Alkaline Phosphatase C-Reactive Protein Total Protein Albumin Vitamin B12 Crossmatch Chest x-ray: report reviewed, image reviewed
--- NOTE | 2018-08-11 18:52 | Progress Note ---
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: vascular input noted, no intervention needed at this time IDDM: ssi DVT/GI prophylaxis: sq heparin, IV ppi full code Subjective Date of service: 08/11/18 Principal diagnosis: colon ca Interval history: Same condition Objective - Constitutional Vitals: Vital Signs - 12hr 08/11/18 08/11/18 08/11/18 07:20 08:07 08:25 Temperature 98.7 F Pulse Rate 93 H 93 H Pulse Rate [ Anterior Bilateral Throughout] Pulse Rate [ Right Radial] Respiratory 20 Rate Respiratory Rate [Anterior Bilateral Throughout] Blood Pressure 179/84 179/84 O2 Sat by Pulse 100 100 Oximetry 08/11/18 08/11/18 08/11/18 08:26 08:35 09:18 Temperature Pulse Rate 112 H Pulse Rate [ 103 H 92 H Anterior Bilateral Throughout] Pulse Rate [ Right Radial] Respiratory Rate Respiratory 16 19 Rate [Anterior Bilateral Throughout] Blood Pressure 150/82 O2 Sat by Pulse Oximetry 08/11/18 08/11/18 08/11/18 10:00 12:40 13:23 Temperature 98.5 F Pulse Rate 100 H Pulse Rate [ Anterior Bilateral Throughout] Pulse Rate [ 93 H Right Radial] Respiratory 20 20 20 Rate Respiratory Rate [Anterior Bilateral Throughout] Blood Pressure 143/66 O2 Sat by Pulse 100 96 Oximetry 08/11/18 08/11/18 08/11/18 13:26 13:30 13:38 Temperature Pulse Rate 100 H Pulse Rate [ 99 H 101 H Anterior Bilateral Throughout] Pulse Rate [ Right Radial] Respiratory Rate Respiratory 18 18 Rate [Anterior Bilateral Throughout] Blood Pressure 143/66 O2 Sat by Pulse Oximetry General appearance: Present: no acute distress, well-nourished - EENT Eyes: PERRL, EOM intact ENT: hearing intact, clear oral mucosa Ears: bilateral: normal - Neck Neck: supple, normal ROM - Respiratory Respiratory effort: normal Respiratory: bilateral: CTA - Breasts Breasts: normal - Cardiovascular Rhythm: regular Heart Sounds: Present: S1 & S2. Absent: gallop, rub Extremities: pulses intact, No edema, normal color, Full ROM - Gastrointestinal General gastrointestinal: Present: soft, non-tender, non-distended, normal bowel sounds - Genitourinary Female genitourinary: normal - Integumentary Integumentary: clear, warm, dry - Musculoskeletal Musculoskeletal: 1, strength equal bilaterally - Neurologic Neurologic: moves all extremities - Psychiatric Psychiatric: memory intact, appropriate mood/affect, intact judgment & insight - Labs CBC & Chem 7: 08/11/18 04:11 08/11/18 04:11 Labs: Abnormal lab results 08/10/18 08/11/18 08/11/18 Range/Units 23:33 03:15 04:11 RBC 2.85 L (3.65-5.03) M/mm3 Hgb 8.1 L (10.1-14.3) gm/dl Hct 24.6 L (30.3-42.9) % RDW 19.8 H (13.2-15.2) % Potassium (3.6-5.0) mmol/L Chloride (98-107) mmol/L Carbon Dioxide (22-30) mmol/L BUN (7-17) mg/dL Glucose (65-100) mg/dL POC Glucose 174 H 216 H (70-105) Magnesium (1.7-2.3) mg/dL Alkaline Phosphatase (35-129) units/L Albumin (3.9-5) g/dL 08/11/18 08/11/18 08/11/18 Range/Units 04:11 07:21 09:55 RBC (3.65-5.03) M/mm3 Hgb (10.1-14.3) gm/dl Hct (30.3-42.9) % RDW (13.2-15.2) % Potassium 3.1 L (3.6-5.0) mmol/L Chloride 108.2 H (98-107) mmol/L Carbon Dioxide 21 L (22-30) mmol/L BUN 56 H (7-17) mg/dL Glucose 225 H (65-100) mg/dL POC Glucose 199 H 204 H (70-105) Magnesium 1.60 L (1.7-2.3) mg/dL Alkaline Phosphatase 159 H (35-129) units/L Albumin 2.4 L (3.9-5) g/dL 08/11/18 08/11/18 08/11/18 Range/Units 11:20 15:12 18:38 RBC (3.65-5.03) M/mm3 Hgb (10.1-14.3) gm/dl Hct (30.3-42.9) % RDW (13.2-15.2) % Potassium (3.6-5.0) mmol/L Chloride (98-107) mmol/L Carbon Dioxide (22-30) mmol/L BUN (7-17) mg/dL Glucose (65-100) mg/dL POC Glucose 191 H 168 H 144 H (70-105) Magnesium (1.7-2.3) mg/dL Alkaline Phosphatase (35-129) units/L Albumin (3.9-5) g/dL
[2018-08-11] MEDS ORDERED: TPN ADULT 1,560 ML IV SCH (20:00)
[2018-08-12] MEDS: HumaLOG SUB-Q SCH ×5 (02:15→18:09)
[2018-08-12] MEDS: APRESOLINE IV SCH ×4 (02:21→20:33)
[2018-08-12 04:16] LABS: Calcium 8.8 mg/dL (8.4-10.2)
--- NOTE | 2018-08-12 07:47 | Hem/Onc Progress Note ---
Assessment and Plan 1. T4a N0 Mx adenocarcinoma.bowel perforation, hence labeled as stage 4. 2. A 12 lymph nodes were negative. 3. History of diabetes. 4. History of hypertension. 5. History of fall. 6. History of metabolic encephalopathy. 7. 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 8. History of respiratory failure. 9. History of renal impairment. 10. As per the nursing staff, the patient is DNR. The patient received blood transfusion for anemia. 11. The patient is elderly. 12. As per the information, the patient had bowel perforation, hence labeled as stage 4. 13. The patient was intubated at one time during this admission. 14. I will follow the patient. d/w dr meza d/w family pt was using a walker before coming if pts performance improves - willl look into immune based or targetted therapy abdo drain+ 08/08 - CEA 5.6 08/09 - pt on TPN - will await improvement in pts performance status to decide options 08/10 - pt eating placement being looked into 08/11- pt had a BM - d/w surgical team iv iron 08/12 - still om TPN eating better OP follow up an option - Patient Problems (1) Colon cancer Current Visit: Yes Status: Acute Subjective Date of service: 08/12/18 Principal diagnosis: feeling better Interval history: eating better Objective - Constitutional Vitals: Last Vital Signs Temp 98.3 F 08/11/18 19:15 Pulse 85 08/12/18 04:06 Resp 20 08/11/18 22:00 BP 165/64 08/12/18 02:21 Pulse Ox 97 08/12/18 04:06 - Labs Lab Results: Laboratory Results - last 24 hr 08/11/18 08/11/18 08/11/18 09:55 11:20 15:12 Sodium Potassium Chloride Carbon Dioxide Anion Gap BUN Creatinine Estimated GFR BUN/Creatinine Ratio Glucose POC Glucose 204 H 191 H 168 H Calcium Phosphorus Magnesium 08/11/18 08/11/18 08/12/18 18:38 22:07 03:24 Sodium Potassium Chloride Carbon Dioxide Anion Gap BUN Creatinine Estimated GFR BUN/Creatinine Ratio Glucose POC Glucose 144 H 139 H 204 H Calcium Phosphorus Magnesium 08/12/18 03:38 Sodium 144 Potassium 3.9 D Chloride 110.1 H Carbon Dioxide 21 L Anion Gap 17 BUN 58 H Creatinine 1.3 H Estimated GFR 47 BUN/Creatinine Ratio 45 Glucose 207 H POC Glucose Calcium 8.8 Phosphorus 3.70 Magnesium 2.10 Medications & Allergies - Medications Allergies/Adverse Reactions: Allergies No Known Allergies Allergy (Unverified 07/18/18 20:42) Home Medications: Home Medications Medication Instructions Recorded Confirmed Last Taken Type Furosemide [Lasix] 20 mg PO DAILY 07/19/18 07/19/18 07/18/18 History Insulin Aspart [Novolog Flexpen] 100 unit SQ TID 07/19/18 07/19/18 07/18/18 History Losartan Potassium [Cozaar] 50 mg PO DAILY 07/19/18 07/19/18 07/18/18 History Metoprolol Xl [Metoprolol 25 mg PO QDAY 07/19/18 07/19/18 07/18/18 History SUCCINATE ER TAB] Naproxen 500 mg PO BID 07/19/18 07/19/18 07/18/18 History Ranitidine HCl [Acid Control] 150 mg PO BID 07/19/18 07/19/18 07/18/18 History Active Medications: Generic Name Dose Route Start Last Admin Trade Name Freq PRN Reason Stop Dose Admin Albuterol 2.5 mg 07/24/18 20:13 07/24/18 20:31 Proventil IH 2.5 mg Q4HRT PRN Administration Shortness Of Breath Albuterol/Ipratropium 1 ampul 07/25/18 14:00 08/11/18 21:05 Duoneb *Not For Prn Use* IH Not Given TIDRT TRINY Amlodipine Besylate 10 mg 08/09/18 16:00 08/11/18 09:18 Norvasc PO 10 mg QDAY TRINY Administration Clonidine HCl 0.3 mg 07/25/18 10:00 08/08/18 10:02 Catapres-Tts Patch TD 0.3 mg Mo TRINY Administration Dextrose 50 ml 07/19/18 02:51 D50w (25gm) Syringe IV PRN PRN Hypoglycemia Hydralazine HCl 20 mg 08/09/18 14:00 08/12/18 02:21 Apresoline IV 20 mg Q6H TRINY Administration Amino Acids/Electrolytes/Dextrose 1,560 mls @ 65 mls/hr 08/11/18 20:00 08/11/18 20:28 Tpn Adult IV 08/12/18 19:59 65 mls/hr DAILY@1999 TRINY Administration Protocol Insulin Glargine 20 units 08/02/18 11:00 08/11/18 09:53 Lantus SUB-Q 20 units DAILY TRINY Administration Insulin Human Lispro 0 unit 07/19/18 03:00 08/12/18 03:27 Humalog SUB-Q 8 unit Q4H TRINY Administration Protocol Labetalol HCl 10 mg 07/26/18 12:37 08/08/18 05:06 Normodyne IV 10 mg Q4H PRN Administration Blood Pressure Morphine Sulfate 2 mg 08/03/18 00:21 08/11/18 20:26 Morphine IV 2 mg Q3H PRN Administration Pain, Moderate (4-6) Multi-Ingred Cream/Lotion/Oil/Oint 1 applic 08/01/18 11:56 Artificial Tears Ophth Oint OU Q4HR PRN Dry Eye(s) Pantoprazole Sodium 40 mg 08/02/18 10:00 08/11/18 09:16 Protonix IV 40 mg QDAY TRINY Administration
[2018-08-12] MEDS: DUONEB *Not for PRN Use IH SCH ×3 (07:58→20:44)
--- NOTE | 2018-08-12 09:48 | Progress Note ---
Assessment and Plan Impression: * Acute kidney injury secondary multifactorial etioloiges: prerenal azotemia, sepsis related ATN, contrast induced nephropathy * Stage IV adenocarcinoma of colon * s/p right hemicolectomy, ileocolic anastamosis * Sepsis * Intraabdominal abscess w/?perforation vs necrotic tumor * Hypernatermia * Hypertension Plan: * Renal function is stable, SHREYAS resolved * Hypernatremia noted, gentle ivfs prn D5W * Replete K * Abx per ID * Transfuse pRBC per primary team * Consultants' recommendations reviewed * Avoid nephrotoxins * Dose medications for renal function Subjective Date of service: 08/12/18 Principal diagnosis: colon ca Interval history: resting in bed today Objective - Exam Narrative Exam: General appearance: well-developed, well-nourished EENT: ATNC Respiratory: Present: Decreased Breath Sounds Cardiology: regular, S1S2 Gastrointestinal: hypoactive bowel sounds Integumentary: warm and dry Neurologic: no focal deficit Psychiatric: cooperative - Vital Signs Vital signs: Vital Signs - 12hr 08/11/18 08/12/18 08/12/18 22:00 02:21 02:52 Temperature Pulse Rate 91 H Respiratory 20 Rate Blood Pressure 165/64 O2 Sat by Pulse 94 97 Oximetry 08/12/18 08/12/18 04:06 07:24 Temperature 97.5 F L Pulse Rate 85 87 Respiratory 19 Rate Blood Pressure 161/67 O2 Sat by Pulse 97 99 Oximetry - Lab 08/11/18 04:11 08/12/18 03:38 Most recent lab results Calcium 8.8 mg/dL (8.4-10.2) 08/12/18 03:38 Phosphorus 3.70 mg/dL (2.5-4.5) 08/12/18 03:38 Magnesium 2.10 mg/dL (1.7-2.3) 08/12/18 03:38 Medications & Allergies - Medications Allergies/Adverse Reactions: Allergies No Known Allergies Allergy (Unverified 07/18/18 20:42) Home Medications: Home Medications Medication Instructions Recorded Confirmed Last Taken Type Furosemide [Lasix] 20 mg PO DAILY 07/19/18 07/19/18 07/18/18 History Insulin Aspart [Novolog Flexpen] 100 unit SQ TID 07/19/18 07/19/18 07/18/18 History Losartan Potassium [Cozaar] 50 mg PO DAILY 07/19/18 07/19/18 07/18/18 History Metoprolol Xl [Metoprolol 25 mg PO QDAY 07/19/18 07/19/18 07/18/18 History SUCCINATE ER TAB] Naproxen 500 mg PO BID 07/19/18 07/19/18 07/18/18 History Ranitidine HCl [Acid Control] 150 mg PO BID 07/19/18 07/19/18 07/18/18 History Active Medications: Generic Name Dose Route Start Last Admin Trade Name Freq PRN Reason Stop Dose Admin Albuterol 2.5 mg 07/24/18 20:13 07/24/18 20:31 Proventil IH 2.5 mg Q4HRT PRN Administration Shortness Of Breath Albuterol/Ipratropium 1 ampul 07/25/18 14:00 08/12/18 07:58 Duoneb *Not For Prn Use* IH 1 ampul TIDRT TRINY Administration Amlodipine Besylate 10 mg 08/09/18 16:00 08/11/18 09:18 Norvasc PO 10 mg QDAY TRINY Administration Clonidine HCl 0.3 mg 07/25/18 10:00 08/08/18 10:02 Catapres-Tts Patch TD 0.3 mg Mo TRINY Administration Dextrose 50 ml 07/19/18 02:51 D50w (25gm) Syringe IV PRN PRN Hypoglycemia Hydralazine HCl 20 mg 08/09/18 14:00 08/12/18 02:21 Apresoline IV 20 mg Q6H TRINY Administration Amino Acids/Electrolytes/Dextrose 1,560 mls @ 65 mls/hr 08/11/18 20:00 08/11/18 20:28 Tpn Adult IV 08/12/18 19:59 65 mls/hr DAILY@2000 TRINY Administration Protocol Insulin Glargine 20 units 08/02/18 11:00 08/11/18 09:53 Lantus SUB-Q 20 units DAILY TRINY Administration Insulin Human Lispro 0 unit 08/12/18 12:00 Humalog SUB-Q Q6HR TRINY Protocol Labetalol HCl 10 mg 07/26/18 12:37 08/08/18 05:06 Normodyne IV 10 mg Q4H PRN Administration Blood Pressure Morphine Sulfate 2 mg 08/03/18 00:21 08/11/18 20:26 Morphine IV 2 mg Q3H PRN Administration Pain, Moderate (4-6) Multi-Ingred Cream/Lotion/Oil/Oint 1 applic 08/01/18 11:56 Artificial Tears Ophth Oint OU Q4HR PRN Dry Eye(s) Pantoprazole Sodium 40 mg 08/02/18 10:00 08/11/18 09:16 Protonix IV 40 mg QDAY TRINY Administration
[2018-08-12] MEDS: LANTUS SUB-Q SCH (10:02)
[2018-08-12] MEDS: NORVASC PO SCH (10:04)
[2018-08-12] MEDS: PROTONIX IV SCH (10:04)
--- NOTE | 2018-08-12 12:27 | Progress Note ---
Assessment and Plan Pt feeling well without specific compl. iron po diet (about 55% of caloric needs). neg N, V or abd pain. Abd soft, non tender surgically stable will follow prn Selected Entries 08/12/18 07:24 Temperature 97.5 F L Pulse Rate 87 Respiratory 19 Rate Blood Pressure 161/67 Objective Vital Signs - 12hr 08/12/18 08/12/18 08/12/18 02:21 02:52 04:06 Temperature Pulse Rate 91 H 85 Respiratory Rate Blood Pressure 165/64 O2 Sat by Pulse 97 97 Oximetry 08/12/18 07:24 Temperature 97.5 F L Pulse Rate 87 Respiratory 19 Rate Blood Pressure 161/67 O2 Sat by Pulse 99 Oximetry - Labs 08/11/18 04:11 08/12/18 03:38 Diabetes panel 08/12/18 Range/Units 03:38 Sodium 144 (137-145) mmol/L Potassium 3.9 D (3.6-5.0) mmol/L Chloride 110.1 H (98-107) mmol/L Carbon Dioxide 21 L (22-30) mmol/L BUN 58 H (7-17) mg/dL Creatinine 1.3 H (0.7-1.2) mg/dL Glucose 207 H (65-100) mg/dL Calcium 8.8 (8.4-10.2) mg/dL Calcium panel 08/12/18 Range/Units 03:38 Calcium 8.8 (8.4-10.2) mg/dL Phosphorus 3.70 (2.5-4.5) mg/dL Pituitary panel 08/12/18 Range/Units 03:38 Sodium 144 (137-145) mmol/L Potassium 3.9 D (3.6-5.0) mmol/L Chloride 110.1 H (98-107) mmol/L Carbon Dioxide 21 L (22-30) mmol/L BUN 58 H (7-17) mg/dL Creatinine 1.3 H (0.7-1.2) mg/dL Glucose 207 H (65-100) mg/dL Calcium 8.8 (8.4-10.2) mg/dL Adrenal panel 08/12/18 Range/Units 03:38 Sodium 144 (137-145) mmol/L Potassium 3.9 D (3.6-5.0) mmol/L Chloride 110.1 H (98-107) mmol/L Carbon Dioxide 21 L (22-30) mmol/L BUN 58 H (7-17) mg/dL Creatinine 1.3 H (0.7-1.2) mg/dL Glucose 207 H (65-100) mg/dL Calcium 8.8 (8.4-10.2) mg/dL
--- NOTE | 2018-08-12 12:43 | Progress Note ---
Assessment and Plan Imp: 1. Colon cancer 2. Perforated viscus 3. Sepsis 4. Acute respiratory failure, hypoxia 5. Bibasilar atelectasis 6. SHREYAS Rec: 1. CXR findings likely reflect atelectasis due to hypoventilation in setting of abdominal pain/distension + bed-bound status/weakness; doubt pneumonia; would focus on incentive spirometry and mobilization w/ PT, etc. 2. Can continue the Duonebs 3. SCDs 4. BP control 5. We will monitor with you; pulm-meza stable for d/c Plan of care reviewed with patient/family, they understand/agree Subjective Date of service: 08/12/18 Principal diagnosis: colon ca Interval history: No events. On 2L NC. Alert. No SOB or other complaints. Active Medications Albuterol (Proventil) 2.5 mg IH Q4HRT PRN PRN Reason: Shortness Of Breath Last Admin: 07/24/18 20:31 Dose: 2.5 mg Documented by: Albuterol/Ipratropium (Duoneb *Not For Prn Use*) 1 ampul IH TIDRT [facility] Last Admin: 08/12/18 07:58 Dose: 1 ampul Documented by: Amlodipine Besylate (Norvasc) 10 mg PO QDAY [facility] Last Admin: 08/12/18 10:04 Dose: 10 mg Documented by: Clonidine HCl (Catapres-Tts Patch) 0.3 mg TD Mo [facility] Last Admin: 08/08/18 10:02 Dose: 0.3 mg Documented by: Dextrose (D50w (25gm) Syringe) 50 ml IV PRN PRN PRN Reason: Hypoglycemia Hydralazine HCl (Apresoline) 20 mg IV Q6H [facility] Last Admin: 08/12/18 10:06 Dose: 20 mg Documented by: Amino Acids/Electrolytes/Dextrose (Tpn Adult) 1,560 mls @ 65 mls/hr IV DAILY@ 1999 [facility]; Protocol Stop: 08/12/18 19:59 Last Admin: 08/11/18 20:28 Dose: 65 mls/hr Documented by: Insulin Glargine (Lantus) 20 units SUB-Q DAILY [facility] Last Admin: 08/12/18 10:02 Dose: 20 units Documented by: Insulin Human Lispro (Humalog) 0 unit SUB-Q Q6HR [facility]; Protocol Labetalol HCl (Normodyne) 10 mg IV Q4H PRN PRN Reason: Blood Pressure Last Admin: 08/08/18 05:06 Dose: 10 mg Documented by: Morphine Sulfate (Morphine) 2 mg IV Q3H PRN PRN Reason: Pain, Moderate (4-6) Last Admin: 08/11/18 20:26 Dose: 2 mg Documented by: Multi-Ingred Cream/Lotion/Oil/Oint (Artificial Tears Ophth Oint) 1 applic OU Q4HR PRN PRN Reason: Dry Eye(s) Pantoprazole Sodium (Protonix) 40 mg IV QDAY [facility] Last Admin: 08/12/18 10:04 Dose: 40 mg Documented by: Objective Vital Signs - 12hr 08/12/18 08/12/18 08/12/18 02:21 02:52 04:06 Temperature Pulse Rate 91 H 85 Respiratory Rate Blood Pressure 165/64 O2 Sat by Pulse 97 97 Oximetry 08/12/18 07:24 Temperature 97.5 F L Pulse Rate 87 Respiratory 19 Rate Blood Pressure 161/67 O2 Sat by Pulse 99 Oximetry Constitutional: no acute distress, alert Eyes: non-icteric Neck: supple Effort: normal Ascultation: Bilateral: clear Cardiovascular: regular rate and rhythm (no mrg) Gastrointestinal: normoactive bowel sounds, soft, non-distended Integumentary: normal Extremities: no cyanosis, no edema, pink and warm Neurologic: normal mental status, non-focal exam, pupils equal and round, CN II-XII normal Psychiatric: mood appropriate, affect normal CBC and BMP: 08/11/18 04:11 08/12/18 03:38 ABG, PT/INR, D-dimer: ABG POC ABG pH 7.409 (7.35-7.45) 08/02/18 09:56 POC ABG pCO2 38.5 (35-45) 08/02/18 09:56 POC ABG pO2 70 (80-105) L 08/02/18 09:56 POC ABG HCO3 24.3 08/02/18 09:56 POC ABG Total CO2 25 08/02/18 09:56 POC ABG O2 Sat 94 08/02/18 09:56 PT/INR, D-dimer PT 14.5 Sec. (12.2-14.9) 07/28/18 05:27 INR 1.09 (0.87-1.13) 07/28/18 05:27 Abnormal lab findings: Abnormal Labs 07/18/18 07/18/18 07/18/18 20:28 20:48 20:48 WBC 12.3 H RBC 3.47 L Hgb 9.1 L Hct 28.9 L MCH 26 L RDW 16.1 H Plt Count 473 H Lymph % (Auto) 5.4 L [place] % (Auto) Lymph # 0.7 L [place] # Seg Neutrophils % 86.5 H Seg Neuts % (Manual) Lymphocytes % (Manual) Monocytes % (Manual) Seg Neutrophils # 10.7 H Seg Neutrophils # Man Lymphocytes # (Manual) Monocytes # (Manual) APTT POC ABG pO2 Sodium Potassium Chloride Carbon Dioxide BUN Creatinine Glucose 108 H POC Glucose 109 H Calcium Phosphorus Magnesium Iron TIBC Alkaline Phosphatase C-Reactive Protein Total Protein Albumin 3.1 L Vitamin B12 Crossmatch 07/18/18 07/18/18 07/19/18 20:48 23:12 02:50 WBC RBC 3.35 L Hgb 9.0 L Hct 27.9 L MCH 27 L RDW 15.8 H Plt Count Lymph % (Auto) [place] % (Auto) Lymph # [place] # Seg Neutrophils % Seg Neuts % (Manual) Lymphocytes % (Manual) Monocytes % (Manual) Seg Neutrophils # Seg Neutrophils # Man Lymphocytes # (Manual) Monocytes # (Manual) APTT 23.2 L POC ABG pO2 Sodium Potassium Chloride Carbon Dioxide BUN Creatinine Glucose POC Glucose 106 H Calcium Phosphorus Magnesium Iron TIBC Alkaline Phosphatase C-Reactive Protein Total Protein Albumin Vitamin B12 Crossmatch 07/19/18 07/19/18 07/19/18 02:50 08:00 11:46 WBC RBC Hgb Hct MCH RDW Plt Count Lymph % (Auto) [place] % (Auto) Lymph # [place] # Seg Neutrophils % Seg Neuts % (Manual) Lymphocytes % (Manual) Monocytes % (Manual) Seg Neutrophils # Seg Neutrophils # Man Lymphocytes # (Manual) Monocytes # (Manual) APTT POC ABG pO2 Sodium 136 L Potassium Chloride Carbon Dioxide BUN Creatinine Glucose 105 H POC Glucose 131 H 152 H Calcium Phosphorus Magnesium Iron TIBC Alkaline Phosphatase C-Reactive Protein Total Protein Albumin Vitamin B12 Crossmatch 07/19/18 07/19/18 07/19/18 13:46 15:34 20:42 WBC RBC Hgb Hct MCH RDW Plt Count Lymph % (Auto) [place] % (Auto) Lymph # [place] # Seg Neutrophils % Seg Neuts % (Manual) Lymphocytes % (Manual) Monocytes % (Manual) Seg Neutrophils # Seg Neutrophils # Man Lymphocytes # (Manual) Monocytes # (Manual) APTT POC ABG pO2 Sodium Potassium Chloride Carbon Dioxide BUN Creatinine Glucose POC Glucose 152 H 182 H 187 H Calcium Phosphorus Magnesium Iron TIBC Alkaline Phosphatase C-Reactive Protein Total Protein Albumin Vitamin B12 Crossmatch 07/19/18 07/20/18 07/20/18 23:05 02:15 06:14 WBC RBC Hgb Hct MCH RDW Plt Count Lymph % (Auto) [place] % (Auto) Lymph # [place] # Seg Neutrophils % Seg Neuts % (Manual) Lymphocytes % (Manual) Monocytes % (Manual) Seg Neutrophils # Seg Neutrophils # Man Lymphocytes # (Manual) Monocytes # (Manual) APTT POC ABG pO2 Sodium Potassium Chloride Carbon Dioxide BUN Creatinine Glucose POC Glucose 133 H 154 H 137 H Calcium Phosphorus Magnesium Iron TIBC Alkaline Phosphatase C-Reactive Protein Total Protein Albumin Vitamin B12 Crossmatch 07/20/18 07/20/18 07/20/18 06:47 06:47 12:01 WBC 11.7 H RBC 3.51 L Hgb 9.2 L Hct 29.3 L MCH 26 L RDW 15.9 H Plt Count Lymph % (Auto) 12.0 L [place] % (Auto) Lymph # [place] # Seg Neutrophils % 80.8 H Seg Neuts % (Manual) Lymphocytes % (Manual) Monocytes % (Manual) Seg Neutrophils # 9.4 H Seg Neutrophils # Man Lymphocytes # (Manual) Monocytes # (Manual) APTT POC ABG pO2 Sodium Potassium Chloride Carbon Dioxide BUN Creatinine Glucose 126 H POC Glucose 157 H Calcium 8.3 L Phosphorus Magnesium Iron TIBC Alkaline Phosphatase C-Reactive Protein Total Protein Albumin 2.8 L Vitamin B12 Crossmatch 07/20/18 07/20/18 07/20/18 16:11 19:56 23:34 WBC RBC Hgb Hct MCH RDW Plt Count Lymph % (Auto) [place] % (Auto) Lymph # [place] # Seg Neutrophils % Seg Neuts % (Manual) Lymphocytes % (Manual) Monocytes % (Manual) Seg Neutrophils # Seg Neutrophils # Man Lymphocytes # (Manual) Monocytes # (Manual) APTT POC ABG pO2 Sodium Potassium Chloride Carbon Dioxide BUN Creatinine Glucose POC Glucose 155 H 158 H 149 H Calcium Phosphorus Magnesium Iron TIBC Alkaline Phosphatase C-Reactive Protein Total Protein Albumin Vitamin B12 Crossmatch 07/21/18 07/21/18 07/21/18 04:16 08:11 11:15 WBC RBC Hgb Hct MCH RDW Plt Count Lymph % (Auto) [place] % (Auto) Lymph # [place] # Seg Neutrophils % Seg Neuts % (Manual) Lymphocytes % (Manual) Monocytes % (Manual) Seg Neutrophils # Seg Neutrophils # Man Lymphocytes # (Manual) Monocytes # (Manual) APTT POC ABG pO2 Sodium Potassium Chloride Carbon Dioxide BUN Creatinine Glucose POC Glucose 127 H 142 H 159 H Calcium Phosphorus Magnesium Iron TIBC Alkaline Phosphatase C-Reactive Protein Total Protein Albumin Vitamin B12 Crossmatch 07/21/18 07/21/18 07/21/18 16:12 18:49 23:03 WBC RBC Hgb Hct MCH RDW Plt Count Lymph % (Auto) [place] % (Auto) Lymph # [place] # Seg Neutrophils % Seg Neuts % (Manual) Lymphocytes % (Manual) Monocytes % (Manual) Seg Neutrophils # Seg Neutrophils # Man Lymphocytes # (Manual) Monocytes # (Manual) APTT POC ABG pO2 Sodium Potassium Chloride Carbon Dioxide BUN Creatinine Glucose POC Glucose 134 H 113 H 120 H Calcium Phosphorus Magnesium Iron TIBC Alkaline Phosphatase C-Reactive Protein Total Protein Albumin Vitamin B12 Crossmatch 07/22/18 07/22/18 07/22/18 05:24 08:09 11:42 WBC RBC Hgb Hct MCH RDW Plt Count Lymph % (Auto) [place] % (Auto) Lymph # [place] # Seg Neutrophils % Seg Neuts % (Manual) Lymphocytes % (Manual) Monocytes % (Manual) Seg Neutrophils # Seg Neutrophils # Man Lymphocytes # (Manual) Monocytes # (Manual) APTT POC ABG pO2 Sodium Potassium Chloride Carbon Dioxide BUN Creatinine Glucose POC Glucose 126 H 112 H 143 H Calcium Phosphorus Magnesium Iron TIBC Alkaline Phosphatase C-Reactive Protein Total Protein Albumin Vitamin B12 Crossmatch 07/22/18 07/22/18 07/22/18 13:47 16:26 22:48 WBC RBC 3.16 L Hgb 8.3 L Hct 26.5 L MCH 26 L RDW 16.6 H Plt Count Lymph % (Auto) 12.0 L [place] % (Auto) Lymph # 1.1 L [place] # Seg Neutrophils % 79.9 H Seg Neuts % (Manual) Lymphocytes % (Manual) Monocytes % (Manual) Seg Neutrophils # Seg Neutrophils # Man Lymphocytes # (Manual) Monocytes # (Manual) APTT POC ABG pO2 Sodium Potassium Chloride Carbon Dioxide BUN Creatinine Glucose POC Glucose 132 H 118 H Calcium Phosphorus Magnesium Iron TIBC Alkaline Phosphatase C-Reactive Protein Total Protein Albumin Vitamin B12 Crossmatch 07/23/18 07/23/18 07/23/18 05:01 05:39 05:39 WBC RBC 3.04 L Hgb 8.3 L Hct 25.6 L MCH 27 L RDW 16.7 H Plt Count Lymph % (Auto) 13.1 L [place] % (Auto) 8.1 H Lymph # 1.0 L [place] # Seg Neutrophils % 77.0 H Seg Neuts % (Manual) Lymphocytes % (Manual) Monocytes % (Manual) Seg Neutrophils # Seg Neutrophils # Man Lymphocytes # (Manual) Monocytes # (Manual) APTT POC ABG pO2 Sodium Potassium Chloride Carbon Dioxide BUN 22 H Creatinine Glucose 224 H POC Glucose 197 H Calcium 8.3 L Phosphorus 1.90 L Magnesium 1.60 L Iron TIBC Alkaline Phosphatase C-Reactive Protein Total Protein Albumin 2.8 L Vitamin B12 Crossmatch 07/23/18 07/23/18 07/23/18 07:37 12:10 15:41 WBC RBC Hgb Hct MCH RDW Plt Count Lymph % (Auto) [place] % (Auto) Lymph # [place] # Seg Neutrophils % Seg Neuts % (Manual) Lymphocytes % (Manual) Monocytes % (Manual) Seg Neutrophils # Seg Neutrophils # Man Lymphocytes # (Manual) Monocytes # (Manual) APTT POC ABG pO2 Sodium Potassium Chloride Carbon Dioxide BUN Creatinine Glucose POC Glucose 192 H 191 H 187 H Calcium Phosphorus Magnesium Iron TIBC Alkaline Phosphatase C-Reactive Protein Total Protein Albumin Vitamin B12 Crossmatch 07/23/18 07/24/18 07/24/18 23:12 03:12 04:34 WBC RBC Hgb Hct MCH RDW Plt Count Lymph % (Auto) [place] % (Auto) Lymph # [place] # Seg Neutrophils % Seg Neuts % (Manual) Lymphocytes % (Manual) Monocytes % (Manual) Seg Neutrophils # Seg Neutrophils # Man Lymphocytes # (Manual) Monocytes # (Manual) APTT POC ABG pO2 Sodium Potassium Chloride Carbon Dioxide BUN 25 H Creatinine Glucose 191 H POC Glucose 231 H 224 H Calcium 8.3 L Phosphorus 1.60 L Magnesium 1.60 L Iron TIBC Alkaline Phosphatase C-Reactive Protein Total Protein Albumin Vitamin B12 Crossmatch 07/24/18 07/24/18 07/24/18 08:21 12:12 16:55 WBC RBC Hgb Hct MCH RDW Plt Count Lymph % (Auto) [place] % (Auto) Lymph # [place] # Seg Neutrophils % Seg Neuts % (Manual) Lymphocytes % (Manual) Monocytes % (Manual) Seg Neutrophils # Seg Neutrophils # Man Lymphocytes # (Manual) Monocytes # (Manual) APTT POC ABG pO2 Sodium Potassium Chloride Carbon Dioxide BUN Creatinine Glucose POC Glucose 187 H 167 H 192 H Calcium Phosphorus Magnesium Iron TIBC Alkaline Phosphatase C-Reactive Protein Total Protein Albumin Vitamin B12 Crossmatch 07/24/18 07/24/18 07/25/18 20:30 23:38 02:44 WBC RBC Hgb Hct MCH RDW Plt Count Lymph % (Auto) [place] % (Auto) Lymph # [place] # Seg Neutrophils % Seg Neuts % (Manual) Lymphocytes % (Manual) Monocytes % (Manual) Seg Neutrophils # Seg Neutrophils # Man Lymphocytes # (Manual) Monocytes # (Manual) APTT POC ABG pO2 Sodium Potassium Chloride Carbon Dioxide BUN Creatinine Glucose POC Glucose 192 H 181 H 196 H Calcium Phosphorus Magnesium Iron TIBC Alkaline Phosphatase C-Reactive Protein Total Protein Albumin Vitamin B12 Crossmatch 07/25/18 07/25/18 07/25/18 03:58 03:58 06:35 WBC RBC Hgb Hct MCH RDW Plt Count Lymph % (Auto) [place] % (Auto) Lymph # [place] # Seg Neutrophils % Seg Neuts % (Manual) Lymphocytes % (Manual) Monocytes % (Manual) Seg Neutrophils # Seg Neutrophils # Man Lymphocytes # (Manual) Monocytes # (Manual) APTT POC ABG pO2 Sodium Potassium Chloride Carbon Dioxide BUN 23 H Creatinine Glucose 197 H POC Glucose 203 H Calcium Phosphorus 2.30 L D Magnesium Iron TIBC Alkaline Phosphatase C-Reactive Protein 4.30 H Total Protein Albumin Vitamin B12 Crossmatch 07/25/18 07/25/18 07/25/18 12:04 16:33 19:50 WBC RBC Hgb Hct MCH RDW Plt Count Lymph % (Auto) [place] % (Auto) Lymph # [place] # Seg Neutrophils % Seg Neuts % (Manual) Lymphocytes % (Manual) Monocytes % (Manual) Seg Neutrophils # Seg Neutrophils # Man Lymphocytes # (Manual) Monocytes # (Manual) APTT POC ABG pO2 Sodium Potassium Chloride Carbon Dioxide BUN Creatinine Glucose POC Glucose 153 H 204 H 213 H Calcium Phosphorus Magnesium Iron TIBC Alkaline Phosphatase C-Reactive Protein Total Protein Albumin Vitamin B12 Crossmatch 07/25/18 07/26/18 07/26/18 22:52 02:38 04:13 WBC RBC Hgb Hct MCH RDW Plt Count Lymph % (Auto) [place] % (Auto) Lymph # [place] # Seg Neutrophils % Seg Neuts % (Manual) Lymphocytes % (Manual) Monocytes % (Manual) Seg Neutrophils # Seg Neutrophils # Man Lymphocytes # (Manual) Monocytes # (Manual) APTT POC ABG pO2 Sodium Potassium Chloride Carbon Dioxide BUN 22 H Creatinine Glucose 180 H POC Glucose 182 H 169 H Calcium 8.3 L Phosphorus Magnesium Iron TIBC Alkaline Phosphatase C-Reactive Protein Total Protein Albumin Vitamin B12 Crossmatch 07/26/18 07/26/18 07/27/18 06:37 22:45 02:44 WBC RBC Hgb Hct MCH RDW Plt Count Lymph % (Auto) [place] % (Auto) Lymph # [place] # Seg Neutrophils % Seg Neuts % (Manual) Lymphocytes % (Manual) Monocytes % (Manual) Seg Neutrophils # Seg Neutrophils # Man Lymphocytes # (Manual) Monocytes # (Manual) APTT POC ABG pO2 Sodium Potassium Chloride Carbon Dioxide BUN 24 H Creatinine Glucose 195 H POC Glucose 156 H 237 H Calcium Phosphorus Magnesium Iron TIBC Alkaline Phosphatase C-Reactive Protein Total Protein Albumin Vitamin B12 Crossmatch 07/27/18 07/27/18 07/27/18 02:51 06:27 10:45 WBC RBC Hgb Hct MCH RDW Plt Count Lymph % (Auto) [place] % (Auto) Lymph # [place] # Seg Neutrophils % Seg Neuts % (Manual) Lymphocytes % (Manual) Monocytes % (Manual) Seg Neutrophils # Seg Neutrophils # Man Lymphocytes # (Manual) Monocytes # (Manual) APTT POC ABG pO2 Sodium Potassium Chloride Carbon Dioxide BUN Creatinine Glucose POC Glucose 166 H 212 H 177 H Calcium Phosphorus Magnesium Iron TIBC Alkaline Phosphatase C-Reactive Protein Total Protein Albumin Vitamin B12 Crossmatch 07/27/18 07/28/18 07/28/18 16:14 00:12 05:06 WBC RBC Hgb Hct MCH RDW Plt Count Lymph % (Auto) [place] % (Auto) Lymph # [place] # Seg Neutrophils % Seg Neuts % (Manual) Lymphocytes % (Manual) Monocytes % (Manual) Seg Neutrophils # Seg Neutrophils # Man Lymphocytes # (Manual) Monocytes # (Manual) APTT POC ABG pO2 Sodium Potassium Chloride Carbon Dioxide BUN Creatinine Glucose POC Glucose 225 H 220 H 214 H Calcium Phosphorus Magnesium Iron TIBC Alkaline Phosphatase C-Reactive Protein Total Protein Albumin Vitamin B12 Crossmatch 07/28/18 07/28/18 07/28/18 05:27 08:09 11:05 WBC RBC Hgb Hct MCH RDW Plt Count Lymph % (Auto) [place] % (Auto) Lymph # [place] # Seg Neutrophils % Seg Neuts % (Manual) Lymphocytes % (Manual) Monocytes % (Manual) Seg Neutrophils # Seg Neutrophils # Man Lymphocytes # (Manual) Monocytes # (Manual) APTT POC ABG pO2 Sodium Potassium Chloride Carbon Dioxide BUN 25 H Creatinine 0.6 L Glucose 213 H POC Glucose 228 H 258 H Calcium Phosphorus Magnesium Iron TIBC Alkaline Phosphatase C-Reactive Protein Total Protein Albumin Vitamin B12 Crossmatch 07/28/18 07/28/18 07/28/18 12:19 17:40 17:40 WBC RBC 2.87 L Hgb 7.7 L Hct 24.9 L MCH 27 L RDW 18.0 H Plt Count Lymph % (Auto) [place] % (Auto) Lymph # [place] # Seg Neutrophils % Seg Neuts % (Manual) Lymphocytes % (Manual) Monocytes % (Manual) Seg Neutrophils # Seg Neutrophils # Man Lymphocytes # (Manual) Monocytes # (Manual) APTT POC ABG pO2 Sodium Potassium Chloride Carbon Dioxide BUN Creatinine Glucose POC Glucose 209 H Calcium Phosphorus Magnesium Iron TIBC Alkaline Phosphatase C-Reactive Protein Total Protein Albumin Vitamin B12 Crossmatch See Detail 07/28/18 07/28/18 07/29/18 20:00 23:48 02:29 WBC RBC Hgb Hct MCH RDW Plt Count Lymph % (Auto) [place] % (Auto) Lymph # [place] # Seg Neutrophils % Seg Neuts % (Manual) Lymphocytes % (Manual) Monocytes % (Manual) Seg Neutrophils # Seg Neutrophils # Man Lymphocytes # (Manual) Monocytes # (Manual) APTT POC ABG pO2 Sodium Potassium Chloride Carbon Dioxide BUN Creatinine Glucose POC Glucose 192 H 211 H 217 H Calcium Phosphorus Magnesium Iron TIBC Alkaline Phosphatase C-Reactive Protein Total Protein Albumin Vitamin B12 Crossmatch 07/29/18 07/29/18 07/29/18 05:26 05:26 11:33 WBC RBC 3.20 L Hgb 8.5 L Hct 26.8 L MCH 27 L RDW 17.5 H Plt Count Lymph % (Auto) [place] % (Auto) 10.8 H Lymph # [place] # 1.2 H Seg Neutrophils % 70.8 H Seg Neuts % (Manual) Lymphocytes % (Manual) Monocytes % (Manual) Seg Neutrophils # Seg Neutrophils # Man Lymphocytes # (Manual) Monocytes # (Manual) APTT POC ABG pO2 Sodium Potassium 5.3 H Chloride Carbon Dioxide BUN 25 H Creatinine 0.6 L Glucose 227 H POC Glucose 202 H Calcium Phosphorus Magnesium Iron TIBC Alkaline Phosphatase C-Reactive Protein Total Protein Albumin Vitamin B12 Crossmatch 07/29/18 07/29/18 07/30/18 18:35 23:01 04:27 WBC RBC Hgb Hct MCH RDW Plt Count Lymph % (Auto) [place] % (Auto) Lymph # [place] # Seg Neutrophils % Seg Neuts % (Manual) Lymphocytes % (Manual) Monocytes % (Manual) Seg Neutrophils # Seg Neutrophils # Man Lymphocytes # (Manual) Monocytes # (Manual) APTT POC ABG pO2 Sodium Potassium Chloride Carbon Dioxide BUN Creatinine Glucose POC Glucose 194 H 218 H 176 H Calcium Phosphorus Magnesium Iron TIBC Alkaline Phosphatase C-Reactive Protein Total Protein Albumin Vitamin B12 Crossmatch 07/30/18 07/30/18 07/30/18 10:12 11:00 11:00 WBC RBC Hgb Hct MCH RDW 17.9 H Plt Count Lymph % (Auto) 12.3 L [place] % (Auto) 10.2 H Lymph # [place] # 1.0 H Seg Neutrophils % 75.4 H Seg Neuts % (Manual) Lymphocytes % (Manual) Monocytes % (Manual) Seg Neutrophils # Seg Neutrophils # Man Lymphocytes # (Manual) Monocytes # (Manual) APTT POC ABG pO2 Sodium Potassium Chloride Carbon Dioxide BUN 22 H Creatinine Glucose 269 H POC Glucose 265 H Calcium Phosphorus Magnesium Iron TIBC Alkaline Phosphatase C-Reactive Protein Total Protein Albumin Vitamin B12 Crossmatch 07/30/18 07/30/18 07/30/18 15:11 17:21 21:47 WBC RBC Hgb Hct MCH RDW Plt Count Lymph % (Auto) [place] % (Auto) Lymph # [place] # Seg Neutrophils % Seg Neuts % (Manual) Lymphocytes % (Manual) Monocytes % (Manual) Seg Neutrophils # Seg Neutrophils # Man Lymphocytes # (Manual) Monocytes # (Manual) APTT POC ABG pO2 Sodium Potassium Chloride Carbon Dioxide BUN Creatinine Glucose POC Glucose 208 H 177 H 146 H Calcium Phosphorus Magnesium Iron TIBC Alkaline Phosphatase C-Reactive Protein Total Protein Albumin Vitamin B12 Crossmatch 07/31/18 07/31/18 07/31/18 02:13 03:56 10:15 WBC RBC Hgb Hct MCH RDW Plt Count Lymph % (Auto) [place] % (Auto) Lymph # [place] # Seg Neutrophils % Seg Neuts % (Manual) Lymphocytes % (Manual) Monocytes % (Manual) Seg Neutrophils # Seg Neutrophils # Man Lymphocytes # (Manual) Monocytes # (Manual) APTT POC ABG pO2 Sodium Potassium Chloride Carbon Dioxide BUN 26 H Creatinine 0.6 L Glucose 201 H POC Glucose 208 H 216 H Calcium Phosphorus Magnesium Iron TIBC Alkaline Phosphatase C-Reactive Protein Total Protein Albumin Vitamin B12 Crossmatch 07/31/18 07/31/18 08/01/18 15:42 22:34 03:09 WBC RBC Hgb Hct MCH RDW Plt Count Lymph % (Auto) [place] % (Auto) Lymph # [place] # Seg Neutrophils % Seg Neuts % (Manual) Lymphocytes % (Manual) Monocytes % (Manual) Seg Neutrophils # Seg Neutrophils # Man Lymphocytes # (Manual) Monocytes # (Manual) APTT POC ABG pO2 Sodium Potassium Chloride Carbon Dioxide BUN Creatinine Glucose POC Glucose 205 H 236 H 253 H Calcium Phosphorus Magnesium Iron TIBC Alkaline Phosphatase C-Reactive Protein Total Protein Albumin Vitamin B12 Crossmatch 08/01/18 08/01/18 08/01/18 04:19 06:14 07:18 WBC RBC Hgb Hct MCH RDW Plt Count Lymph % (Auto) [place] % (Auto) Lymph # [place] # Seg Neutrophils % Seg Neuts % (Manual) Lymphocytes % (Manual) Monocytes % (Manual) Seg Neutrophils # Seg Neutrophils # Man Lymphocytes # (Manual) Monocytes # (Manual) APTT POC ABG pO2 Sodium Potassium 3.3 L Chloride Carbon Dioxide BUN 26 H Creatinine 0.5 L Glucose 238 H POC Glucose 257 H Calcium 7.1 L D Phosphorus Magnesium Iron TIBC Alkaline Phosphatase C-Reactive Protein Total Protein Albumin Vitamin B12 Crossmatch See Detail 08/01/18 08/01/18 08/01/18 11:41 12:13 16:28 WBC RBC Hgb Hct MCH RDW Plt Count Lymph % (Auto) [place] % (Auto) Lymph # [place] # Seg Neutrophils % Seg Neuts % (Manual) Lymphocytes % (Manual) Monocytes % (Manual) Seg Neutrophils # Seg Neutrophils # Man Lymphocytes # (Manual) Monocytes # (Manual) APTT POC ABG pO2 339 H Sodium Potassium Chloride Carbon Dioxide BUN Creatinine Glucose POC Glucose 184 H 305 H Calcium Phosphorus Magnesium Iron TIBC Alkaline Phosphatase C-Reactive Protein Total Protein Albumin Vitamin B12 Crossmatch 08/01/18 08/01/18 08/02/18 18:25 21:09 02:01 WBC RBC Hgb Hct MCH RDW Plt Count Lymph % (Auto) [place] % (Auto) Lymph # [place] # Seg Neutrophils % Seg Neuts % (Manual) Lymphocytes % (Manual) Monocytes % (Manual) Seg Neutrophils # Seg Neutrophils # Man Lymphocytes # (Manual) Monocytes # (Manual) APTT POC ABG pO2 Sodium Potassium Chloride Carbon Dioxide BUN Creatinine Glucose POC Glucose 338 H 328 H 350 H Calcium Phosphorus Magnesium Iron TIBC Alkaline Phosphatase C-Reactive Protein Total Protein Albumin Vitamin B12 Crossmatch 08/02/18 08/02/18 08/02/18 04:26 04:26 05:47 WBC 20.9 H RBC Hgb Hct MCH RDW 20.1 H Plt Count Lymph % (Auto) [place] % (Auto) Lymph # [place] # Seg Neutrophils % Seg Neuts % (Manual) 90.0 H Lymphocytes % (Manual) 7.0 L Monocytes % (Manual) Seg Neutrophils # Seg Neutrophils # Man 18.8 H Lymphocytes # (Manual) Monocytes # (Manual) APTT POC ABG pO2 Sodium 133 L Potassium Chloride 97.5 L Carbon Dioxide BUN 48 H Creatinine Glucose 347 H POC Glucose 351 H Calcium 7.8 L Phosphorus Magnesium Iron TIBC Alkaline Phosphatase C-Reactive Protein Total Protein 5.4 L Albumin 2.2 L Vitamin B12 Crossmatch 08/02/18 08/02/18 08/02/18 05:52 09:56 10:02 WBC RBC Hgb Hct MCH RDW Plt Count Lymph % (Auto) [place] % (Auto) Lymph # [place] # Seg Neutrophils % Seg Neuts % (Manual) Lymphocytes % (Manual) Monocytes % (Manual) Seg Neutrophils # Seg Neutrophils # Man Lymphocytes # (Manual) Monocytes # (Manual) APTT POC ABG pO2 74 L 70 L Sodium Potassium Chloride Carbon Dioxide BUN Creatinine Glucose POC Glucose 351 H Calcium Phosphorus Magnesium Iron TIBC Alkaline Phosphatase C-Reactive Protein Total Protein Albumin Vitamin B12 Crossmatch 08/02/18 08/02/18 08/03/18 16:34 22:28 03:13 WBC RBC Hgb Hct MCH RDW Plt Count Lymph % (Auto) [place] % (Auto) Lymph # [place] # Seg Neutrophils % Seg Neuts % (Manual) Lymphocytes % (Manual) Monocytes % (Manual) Seg Neutrophils # Seg Neutrophils # Man Lymphocytes # (Manual) Monocytes # (Manual) APTT POC ABG pO2 Sodium Potassium Chloride Carbon Dioxide BUN Creatinine Glucose POC Glucose 250 H 175 H 189 H Calcium Phosphorus Magnesium Iron TIBC Alkaline Phosphatase C-Reactive Protein Total Protein Albumin Vitamin B12 Crossmatch 08/03/18 08/03/18 08/03/18 04:42 04:42 04:42 WBC 16.5 H RBC 3.43 L Hgb 9.6 L Hct MCH RDW 20.2 H Plt Count Lymph % (Auto) 7.9 L [place] % (Auto) 10.8 H Lymph # [place] # 1.8 H Seg Neutrophils % 80.5 H Seg Neuts % (Manual) Lymphocytes % (Manual) Monocytes % (Manual) Seg Neutrophils # 13.3 H Seg Neutrophils # Man Lymphocytes # (Manual) Monocytes # (Manual) APTT POC ABG pO2 Sodium Potassium Chloride Carbon Dioxide BUN 69 H Creatinine 2.0 H D Glucose 163 H POC Glucose Calcium 7.9 L Phosphorus 6.80 H D Magnesium 2.40 H Iron TIBC Alkaline Phosphatase C-Reactive Protein Total Protein 5.5 L Albumin 2.5 L Vitamin B12 Crossmatch 08/03/18 08/03/18 08/03/18 06:21 08:34 10:16 WBC RBC Hgb Hct MCH RDW Plt Count Lymph % (Auto) [place] % (Auto) Lymph # [place] # Seg Neutrophils % Seg Neuts % (Manual) Lymphocytes % (Manual) Monocytes % (Manual) Seg Neutrophils # Seg Neutrophils # Man Lymphocytes # (Manual) Monocytes # (Manual) APTT POC ABG pO2 Sodium Potassium Chloride Carbon Dioxide BUN Creatinine Glucose POC Glucose 163 H 129 H 134 H Calcium Phosphorus Magnesium Iron TIBC Alkaline Phosphatase C-Reactive Protein Total Protein Albumin Vitamin B12 Crossmatch 08/03/18 08/03/18 08/04/18 14:18 21:44 00:19 WBC RBC Hgb Hct MCH RDW Plt Count Lymph % (Auto) [place] % (Auto) Lymph # [place] # Seg Neutrophils % Seg Neuts % (Manual) Lymphocytes % (Manual) Monocytes % (Manual) Seg Neutrophils # Seg Neutrophils # Man Lymphocytes # (Manual) Monocytes # (Manual) APTT POC ABG pO2 Sodium Potassium Chloride Carbon Dioxide BUN Creatinine Glucose POC Glucose 199 H 189 H 162 H Calcium Phosphorus Magnesium Iron TIBC Alkaline Phosphatase C-Reactive Protein Total Protein Albumin Vitamin B12 Crossmatch 08/04/18 08/04/18 08/04/18 04:07 04:15 04:15 WBC 11.1 H RBC 2.93 L Hgb 8.5 L Hct 25.7 L MCH RDW 20.5 H Plt Count Lymph % (Auto) 7.7 L [place] % (Auto) 10.3 H Lymph # 0.9 L [place] # 1.1 H Seg Neutrophils % 80.6 H Seg Neuts % (Manual) Lymphocytes % (Manual) Monocytes % (Manual) Seg Neutrophils # 8.9 H Seg Neutrophils # Man Lymphocytes # (Manual) Monocytes # (Manual) APTT POC ABG pO2 Sodium Potassium Chloride Carbon Dioxide BUN 89 H Creatinine 2.3 H Glucose 196 H POC Glucose 211 H Calcium 7.7 L Phosphorus 6.60 H Magnesium 2.50 H Iron TIBC Alkaline Phosphatase C-Reactive Protein Total Protein Albumin Vitamin B12 Crossmatch 08/04/18 08/04/18 08/04/18 07:56 10:17 14:06 WBC RBC Hgb Hct MCH RDW Plt Count Lymph % (Auto) [place] % (Auto) Lymph # [place] # Seg Neutrophils % Seg Neuts % (Manual) Lymphocytes % (Manual) Monocytes % (Manual) Seg Neutrophils # Seg Neutrophils # Man Lymphocytes # (Manual) Monocytes # (Manual) APTT POC ABG pO2 Sodium Potassium Chloride Carbon Dioxide BUN Creatinine Glucose POC Glucose 229 H 221 H 182 H Calcium Phosphorus Magnesium Iron TIBC Alkaline Phosphatase C-Reactive Protein Total Protein Albumin Vitamin B12 Crossmatch 08/04/18 08/05/18 08/05/18 20:10 01:26 05:23 WBC RBC Hgb Hct MCH RDW Plt Count Lymph % (Auto) [place] % (Auto) Lymph # [place] # Seg Neutrophils % Seg Neuts % (Manual) Lymphocytes % (Manual) Monocytes % (Manual) Seg Neutrophils # Seg Neutrophils # Man Lymphocytes # (Manual) Monocytes # (Manual) APTT POC ABG pO2 Sodium 147 H Potassium Chloride 111.9 H Carbon Dioxide BUN 94 H Creatinine 2.1 H Glucose 158 H POC Glucose 201 H 170 H Calcium 7.8 L Phosphorus Magnesium 2.40 H Iron TIBC Alkaline Phosphatase C-Reactive Protein Total Protein Albumin Vitamin B12 Crossmatch 08/05/18 08/05/18 08/05/18 05:23 05:42 08:21 WBC RBC 2.96 L Hgb 8.5 L Hct 26.0 L MCH RDW 19.9 H Plt Count Lymph % (Auto) [place] % (Auto) Lymph # [place] # Seg Neutrophils % Seg Neuts % (Manual) 78.0 H Lymphocytes % (Manual) 11.0 L Monocytes % (Manual) 10.0 H Seg Neutrophils # Seg Neutrophils # Man Lymphocytes # (Manual) 1.0 L Monocytes # (Manual) 0.9 H APTT POC ABG pO2 Sodium Potassium Chloride Carbon Dioxide BUN Creatinine Glucose POC Glucose 166 H 178 H Calcium Phosphorus Magnesium Iron TIBC Alkaline Phosphatase C-Reactive Protein Total Protein Albumin Vitamin B12 Crossmatch 08/05/18 08/05/18 08/05/18 11:11 15:53 20:15 WBC RBC Hgb Hct MCH RDW Plt Count Lymph % (Auto) [place] % (Auto) Lymph # [place] # Seg Neutrophils % Seg Neuts % (Manual) Lymphocytes % (Manual) Monocytes % (Manual) Seg Neutrophils # Seg Neutrophils # Man Lymphocytes # (Manual) Monocytes # (Manual) APTT POC ABG pO2 Sodium Potassium Chloride Carbon Dioxide BUN Creatinine Glucose POC Glucose 200 H 157 H 194 H Calcium Phosphorus Magnesium Iron TIBC Alkaline Phosphatase C-Reactive Protein Total Protein Albumin Vitamin B12 Crossmatch 08/05/18 08/06/18 08/06/18 22:32 04:37 04:41 WBC RBC Hgb Hct MCH RDW Plt Count Lymph % (Auto) [place] % (Auto) Lymph # [place] # Seg Neutrophils % Seg Neuts % (Manual) Lymphocytes % (Manual) Monocytes % (Manual) Seg Neutrophils # Seg Neutrophils # Man Lymphocytes # (Manual) Monocytes # (Manual) APTT POC ABG pO2 Sodium 150 H Potassium Chloride 114.5 H Carbon Dioxide BUN 89 H Creatinine 1.9 H Glucose 196 H POC Glucose 209 H 207 H Calcium 8.3 L Phosphorus Magnesium Iron TIBC Alkaline Phosphatase C-Reactive Protein Total Protein Albumin Vitamin B12 Crossmatch 08/06/18 08/06/18 08/06/18 04:41 07:42 11:59 WBC RBC 3.09 L Hgb 8.7 L Hct 26.9 L MCH RDW 19.7 H Plt Count Lymph % (Auto) [place] % (Auto) Lymph # [place] # Seg Neutrophils % Seg Neuts % (Manual) 81.0 H Lymphocytes % (Manual) 12.0 L Monocytes % (Manual) Seg Neutrophils # Seg Neutrophils # Man Lymphocytes # (Manual) 0.9 L Monocytes # (Manual) APTT POC ABG pO2 Sodium Potassium Chloride Carbon Dioxide BUN Creatinine Glucose POC Glucose 178 H 195 H Calcium Phosphorus Magnesium Iron TIBC Alkaline Phosphatase C-Reactive Protein Total Protein Albumin Vitamin B12 Crossmatch 08/06/18 08/06/18 08/07/18 14:30 21:41 02:30 WBC RBC Hgb Hct MCH RDW Plt Count Lymph % (Auto) [place] % (Auto) Lymph # [place] # Seg Neutrophils % Seg Neuts % (Manual) Lymphocytes % (Manual) Monocytes % (Manual) Seg Neutrophils # Seg Neutrophils # Man Lymphocytes # (Manual) Monocytes # (Manual) APTT POC ABG pO2 Sodium Potassium Chloride Carbon Dioxide BUN Creatinine Glucose POC Glucose 184 H 181 H 202 H Calcium Phosphorus Magnesium Iron TIBC Alkaline Phosphatase C-Reactive Protein Total Protein Albumin Vitamin B12 Crossmatch 08/07/18 08/07/18 08/07/18 04:00 04:00 04:00 WBC RBC Hgb Hct MCH RDW 20.0 H Plt Count Lymph % (Auto) [place] % (Auto) Lymph # [place] # Seg Neutrophils % Seg Neuts % (Manual) 78.0 H Lymphocytes % (Manual) 10.0 L Monocytes % (Manual) Seg Neutrophils # Seg Neutrophils # Man Lymphocytes # (Manual) 0.9 L Monocytes # (Manual) APTT POC ABG pO2 Sodium 152 H Potassium Chloride 113.2 H Carbon Dioxide BUN 81 H Creatinine 1.7 H Glucose 203 H POC Glucose Calcium Phosphorus Magnesium Iron 17 L TIBC 122 L Alkaline Phosphatase C-Reactive Protein Total Protein Albumin 2.3 L Vitamin B12 1012 H Crossmatch 08/07/18 08/07/18 08/07/18 06:29 07:19 11:00 WBC RBC Hgb Hct MCH RDW Plt Count Lymph % (Auto) [place] % (Auto) Lymph # [place] # Seg Neutrophils % Seg Neuts % (Manual) Lymphocytes % (Manual) Monocytes % (Manual) Seg Neutrophils # Seg Neutrophils # Man Lymphocytes # (Manual) Monocytes # (Manual) APTT POC ABG pO2 Sodium Potassium Chloride Carbon Dioxide BUN Creatinine Glucose POC Glucose 226 H 240 H 174 H Calcium Phosphorus Magnesium Iron TIBC Alkaline Phosphatase C-Reactive Protein Total Protein Albumin Vitamin B12 Crossmatch 08/07/18 08/07/18 08/08/18 15:43 18:09 02:13 WBC RBC Hgb Hct MCH RDW Plt Count Lymph % (Auto) [place] % (Auto) Lymph # [place] # Seg Neutrophils % Seg Neuts % (Manual) Lymphocytes % (Manual) Monocytes % (Manual) Seg Neutrophils # Seg Neutrophils # Man Lymphocytes # (Manual) Monocytes # (Manual) APTT POC ABG pO2 Sodium Potassium Chloride Carbon Dioxide BUN Creatinine Glucose POC Glucose 201 H 210 H 229 H Calcium Phosphorus Magnesium Iron TIBC Alkaline Phosphatase C-Reactive Protein Total Protein Albumin Vitamin B12 Crossmatch 08/08/18 08/08/18 08/08/18 08:00 10:42 14:34 WBC RBC Hgb Hct MCH RDW Plt Count Lymph % (Auto) [place] % (Auto) Lymph # [place] # Seg Neutrophils % Seg Neuts % (Manual) Lymphocytes % (Manual) Monocytes % (Manual) Seg Neutrophils # Seg Neutrophils # Man Lymphocytes # (Manual) Monocytes # (Manual) APTT POC ABG pO2 Sodium Potassium Chloride Carbon Dioxide BUN Creatinine Glucose POC Glucose 254 H 186 H 171 H Calcium Phosphorus Magnesium Iron TIBC Alkaline Phosphatase C-Reactive Protein Total Protein Albumin Vitamin B12 Crossmatch 08/08/18 08/08/18 08/08/18 19:59 23:04 Unknown WBC RBC Hgb Hct MCH RDW Plt Count Lymph % (Auto) [place] % (Auto) Lymph # [place] # Seg Neutrophils % Seg Neuts % (Manual) Lymphocytes % (Manual) Monocytes % (Manual) Seg Neutrophils # Seg Neutrophils # Man Lymphocytes # (Manual) Monocytes # (Manual) APTT POC ABG pO2 Sodium 153 H Potassium Chloride 115.1 H Carbon Dioxide BUN 74 H Creatinine 1.4 H Glucose 255 H POC Glucose 203 H 233 H Calcium Phosphorus 2.40 L Magnesium Iron TIBC Alkaline Phosphatase C-Reactive Protein Total Protein Albumin Vitamin B12 Crossmatch 08/09/18 08/09/18 08/09/18 02:27 05:30 05:30 WBC RBC 3.31 L Hgb 9.6 L Hct 29.0 L MCH RDW 19.6 H Plt Count Lymph % (Auto) [place] % (Auto) Lymph # [place] # Seg Neutrophils % Seg Neuts % (Manual) Lymphocytes % (Manual) Monocytes % (Manual) Seg Neutrophils # Seg Neutrophils # Man Lymphocytes # (Manual) Monocytes # (Manual) APTT POC ABG pO2 Sodium 150 H Potassium Chloride 112.8 H Carbon Dioxide 21 L BUN 72 H Creatinine 1.6 H Glucose 252 H POC Glucose 264 H Calcium Phosphorus Magnesium 1.60 L Iron TIBC Alkaline Phosphatase C-Reactive Protein Total Protein Albumin 2.6 L Vitamin B12 Crossmatch 08/09/18 08/09/18 08/09/18 07:50 10:14 10:43 WBC RBC Hgb Hct MCH RDW Plt Count Lymph % (Auto) [place] % (Auto) Lymph # [place] # Seg Neutrophils % Seg Neuts % (Manual) Lymphocytes % (Manual) Monocytes % (Manual) Seg Neutrophils # Seg Neutrophils # Man Lymphocytes # (Manual) Monocytes # (Manual) APTT POC ABG pO2 Sodium Potassium Chloride Carbon Dioxide BUN Creatinine Glucose POC Glucose 258 H 221 H Calcium Phosphorus Magnesium 1.40 L Iron TIBC Alkaline Phosphatase C-Reactive Protein Total Protein Albumin Vitamin B12 Crossmatch 08/09/18 08/09/18 08/09/18 11:31 14:26 19:06 WBC RBC Hgb Hct MCH RDW Plt Count Lymph % (Auto) [place] % (Auto) Lymph # [place] # Seg Neutrophils % Seg Neuts % (Manual) Lymphocytes % (Manual) Monocytes % (Manual) Seg Neutrophils # Seg Neutrophils # Man Lymphocytes # (Manual) Monocytes # (Manual) APTT POC ABG pO2 Sodium Potassium Chloride Carbon Dioxide BUN Creatinine Glucose POC Glucose 240 H 242 H 198 H Calcium Phosphorus Magnesium Iron TIBC Alkaline Phosphatase C-Reactive Protein Total Protein Albumin Vitamin B12 Crossmatch 08/09/18 08/10/18 08/10/18 22:16 02:39 04:08 WBC RBC 3.18 L Hgb 8.7 L Hct 27.7 L MCH RDW 19.9 H Plt Count Lymph % (Auto) [place] % (Auto) Lymph # [place] # Seg Neutrophils % Seg Neuts % (Manual) Lymphocytes % (Manual) Monocytes % (Manual) Seg Neutrophils # Seg Neutrophils # Man Lymphocytes # (Manual) Monocytes # (Manual) APTT POC ABG pO2 Sodium Potassium Chloride Carbon Dioxide BUN Creatinine Glucose POC Glucose 188 H 196 H Calcium Phosphorus Magnesium Iron TIBC Alkaline Phosphatase C-Reactive Protein Total Protein Albumin Vitamin B12 Crossmatch 08/10/18 08/10/18 08/10/18 04:08 07:14 09:28 WBC RBC Hgb Hct MCH RDW Plt Count Lymph % (Auto) [place] % (Auto) Lymph # [place] # Seg Neutrophils % Seg Neuts % (Manual) Lymphocytes % (Manual) Monocytes % (Manual) Seg Neutrophils # Seg Neutrophils # Man Lymphocytes # (Manual) Monocytes # (Manual) APTT POC ABG pO2 Sodium 147 H Potassium 3.3 L Chloride 110.0 H Carbon Dioxide BUN 65 H Creatinine 1.3 H Glucose 199 H POC Glucose 194 H 253 H Calcium Phosphorus Magnesium Iron TIBC Alkaline Phosphatase 147 H C-Reactive Protein Total Protein Albumin 2.6 L Vitamin B12 Crossmatch 08/10/18 08/10/18 08/10/18 11:09 14:55 18:35 WBC RBC Hgb Hct MCH RDW Plt Count Lymph % (Auto) [place] % (Auto) Lymph # [place] # Seg Neutrophils % Seg Neuts % (Manual) Lymphocytes % (Manual) Monocytes % (Manual) Seg Neutrophils # Seg Neutrophils # Man Lymphocytes # (Manual) Monocytes # (Manual) APTT POC ABG pO2 Sodium Potassium Chloride Carbon Dioxide BUN Creatinine Glucose POC Glucose 321 H 230 H 116 H Calcium Phosphorus Magnesium Iron TIBC Alkaline Phosphatase C-Reactive Protein Total Protein Albumin Vitamin B12 Crossmatch 08/10/18 08/11/18 08/11/18 23:33 03:15 04:11 WBC RBC 2.85 L Hgb 8.1 L Hct 24.6 L MCH RDW 19.8 H Plt Count Lymph % (Auto) [place] % (Auto) Lymph # [place] # Seg Neutrophils % Seg Neuts % (Manual) Lymphocytes % (Manual) Monocytes % (Manual) Seg Neutrophils # Seg Neutrophils # Man Lymphocytes # (Manual) Monocytes # (Manual) APTT POC ABG pO2 Sodium Potassium Chloride Carbon Dioxide BUN Creatinine Glucose POC Glucose 174 H 216 H Calcium Phosphorus Magnesium Iron TIBC Alkaline Phosphatase C-Reactive Protein Total Protein Albumin Vitamin B12 Crossmatch 08/11/18 08/11/18 08/11/18 04:11 07:21 09:55 WBC RBC Hgb Hct MCH RDW Plt Count Lymph % (Auto) [place] % (Auto) Lymph # [place] # Seg Neutrophils % Seg Neuts % (Manual) Lymphocytes % (Manual) Monocytes % (Manual) Seg Neutrophils # Seg Neutrophils # Man Lymphocytes # (Manual) Monocytes # (Manual) APTT POC ABG pO2 Sodium Potassium 3.1 L Chloride 108.2 H Carbon Dioxide 21 L BUN 56 H Creatinine Glucose 225 H POC Glucose 199 H 204 H Calcium Phosphorus Magnesium 1.60 L Iron TIBC Alkaline Phosphatase 159 H C-Reactive Protein Total Protein Albumin 2.4 L Vitamin B12 Crossmatch 08/11/18 08/11/18 08/11/18 11:20 15:12 18:38 WBC RBC Hgb Hct MCH RDW Plt Count Lymph % (Auto) [place] % (Auto) Lymph # [place] # Seg Neutrophils % Seg Neuts % (Manual) Lymphocytes % (Manual) Monocytes % (Manual) Seg Neutrophils # Seg Neutrophils # Man Lymphocytes # (Manual) Monocytes # (Manual) APTT POC ABG pO2 Sodium Potassium Chloride Carbon Dioxide BUN Creatinine Glucose POC Glucose 191 H 168 H 144 H Calcium Phosphorus Magnesium Iron TIBC Alkaline Phosphatase C-Reactive Protein Total Protein Albumin Vitamin B12 Crossmatch 08/11/18 08/12/18 08/12/18 22:07 03:24 03:38 WBC RBC Hgb Hct MCH RDW Plt Count Lymph % (Auto) [place] % (Auto) Lymph # [place] # Seg Neutrophils % Seg Neuts % (Manual) Lymphocytes % (Manual) Monocytes % (Manual) Seg Neutrophils # Seg Neutrophils # Man Lymphocytes # (Manual) Monocytes # (Manual) APTT POC ABG pO2 Sodium Potassium Chloride 110.1 H Carbon Dioxide 21 L BUN 58 H Creatinine 1.3 H Glucose 207 H POC Glucose 139 H 204 H Calcium Phosphorus Magnesium Iron TIBC Alkaline Phosphatase C-Reactive Protein Total Protein Albumin Vitamin B12 Crossmatch 08/12/18 08/12/18 07:25 12:10 WBC RBC Hgb Hct MCH RDW Plt Count Lymph % (Auto) [place] % (Auto) Lymph # [place] # Seg Neutrophils % Seg Neuts % (Manual) Lymphocytes % (Manual) Monocytes % (Manual) Seg Neutrophils # Seg Neutrophils # Man Lymphocytes # (Manual) Monocytes # (Manual) APTT POC ABG pO2 Sodium Potassium Chloride Carbon Dioxide BUN Creatinine Glucose POC Glucose 157 H 292 H Calcium Phosphorus Magnesium Iron TIBC Alkaline Phosphatase C-Reactive Protein Total Protein Albumin Vitamin B12 Crossmatch Chest x-ray: report reviewed, image reviewed
[2018-08-12] MEDS: MORPHINE IV PRN ×2 (13:37→17:12)
--- NOTE | 2018-08-12 15:14 | Progress Note ---
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: no intervention needed at this time IDDM: ssi DVT/GI prophylaxis: sq heparin, and GI prophylaxis full code Waiting for placement to SNF Electrolytes- normal Subjective Date of service: 08/12/18 Principal diagnosis: colon ca Interval history: Same condition OOB to chair Objective - Constitutional Vitals: Vital Signs - 12hr 08/12/18 08/12/18 08/12/18 04:06 07:24 07:58 Temperature 97.5 F L Pulse Rate 85 87 Pulse Rate [ 87 Anterior Bilateral Throughout] Pulse Rate [ 87 Anterior Bilateral] Respiratory 19 Rate Respiratory 18 Rate [Anterior Bilateral Throughout] Respiratory 18 Rate [Anterior Bilateral] Blood Pressure 161/67 O2 Sat by Pulse 97 99 99 Oximetry 08/12/18 08/12/18 08:08 13:57 Temperature 98.8 F Pulse Rate 97 H Pulse Rate [ 92 H Anterior Bilateral Throughout] Pulse Rate [ 92 H Anterior Bilateral] Respiratory 20 Rate Respiratory 18 Rate [Anterior Bilateral Throughout] Respiratory 18 Rate [Anterior Bilateral] Blood Pressure 166/60 O2 Sat by Pulse 97 Oximetry General appearance: Present: no acute distress, well-nourished - EENT Eyes: PERRL, EOM intact ENT: hearing intact, clear oral mucosa Ears: bilateral: normal - Neck Neck: supple, normal ROM - Respiratory Respiratory effort: normal Respiratory: bilateral: CTA - Breasts Breasts: normal - Cardiovascular Rhythm: regular Heart Sounds: Present: S1 & S2. Absent: gallop, rub Extremities: pulses intact, No edema, normal color, Full ROM - Gastrointestinal General gastrointestinal: Present: soft, non-tender, non-distended, normal bowel sounds - Genitourinary Female genitourinary: normal - Integumentary Integumentary: clear, warm, dry - Musculoskeletal Musculoskeletal: 1, strength equal bilaterally - Neurologic Neurologic: moves all extremities - Psychiatric Psychiatric: memory intact, appropriate mood/affect, intact judgment & insight - Labs CBC & Chem 7: 08/11/18 04:11 08/12/18 03:38 Labs: Abnormal lab results 08/11/18 08/11/18 08/11/18 Range/Units 15:12 18:38 22:07 Chloride (98-107) mmol/L Carbon Dioxide (22-30) mmol/L BUN (7-17) mg/dL Creatinine (0.7-1.2) mg/dL Glucose (65-100) mg/dL POC Glucose 168 H 144 H 139 H (70-105) 08/12/18 08/12/18 08/12/18 Range/Units 03:24 03:38 07:25 Chloride 110.1 H (98-107) mmol/L Carbon Dioxide 21 L (22-30) mmol/L BUN 58 H (7-17) mg/dL Creatinine 1.3 H (0.7-1.2) mg/dL Glucose 207 H (65-100) mg/dL POC Glucose 204 H 157 H (70-105) 08/12/18 Range/Units 12:10 Chloride (98-107) mmol/L Carbon Dioxide (22-30) mmol/L BUN (7-17) mg/dL Creatinine (0.7-1.2) mg/dL Glucose (65-100) mg/dL POC Glucose 292 H (70-105)
[2018-08-12] MEDS ORDERED: TPN ADULT 1,560 ML IV SCH (20:00)
[2018-08-13] MEDS: MORPHINE IV PRN ×2 (00:35→12:34)
[2018-08-13] MEDS: HumaLOG SUB-Q SCH ×4 (00:40→17:45)
[2018-08-13] MEDS: APRESOLINE IV SCH ×4 (03:43→20:56)
[2018-08-13 05:29] LABS: Calcium 8.8 mg/dL (8.4-10.2)
[2018-08-13] MEDS: DUONEB *Not for PRN Use IH SCH ×3 (07:53→19:55)
[2018-08-13] MEDS: PROTONIX IV SCH (10:03)
[2018-08-13] MEDS: NORVASC PO SCH (10:03)
[2018-08-13] MEDS: LANTUS SUB-Q SCH (10:07)
--- NOTE | 2018-08-13 10:24 | Progress Note ---
Assessment and Plan Impression: * Acute kidney injury secondary multifactorial etioloiges: prerenal azotemia, sepsis related ATN, contrast induced nephropathy * Stage IV adenocarcinoma of colon * s/p right hemicolectomy, ileocolic anastamosis * Sepsis * Intraabdominal abscess w/?perforation vs necrotic tumor * Hypernatermia * Hypertension Plan: * Renal function is worse today, will restart D5W, he is volume deplete * Hypernatremia noted, gentle ivfs prn D5W * Replete K * Abx per ID * Transfuse pRBC per primary team * Consultants' recommendations reviewed * Avoid nephrotoxins * Dose medications for renal function Subjective Date of service: 08/13/18 Principal diagnosis: colon ca Interval history: resting in bed today Objective - Exam Narrative Exam: General appearance: well-developed, well-nourished EENT: ATNC Respiratory: Present: Decreased Breath Sounds Cardiology: regular, S1S2 Gastrointestinal: hypoactive bowel sounds Integumentary: warm and dry Neurologic: no focal deficit Psychiatric: cooperative - Vital Signs Vital signs: Vital Signs - 12hr 08/13/18 08/13/18 08/13/18 02:26 03:43 07:52 Temperature 98.5 F 98.3 F Pulse Rate 93 H 93 H 90 Pulse Rate [ Anterior Bilateral Throughout] Respiratory 20 20 Rate Respiratory Rate [Anterior Bilateral Throughout] Blood Pressure 153/72 153/72 169/65 O2 Sat by Pulse 98 98 Oximetry 08/13/18 08/13/18 07:54 07:59 Temperature Pulse Rate Pulse Rate [ 85 88 Anterior Bilateral Throughout] Respiratory Rate Respiratory 18 18 Rate [Anterior Bilateral Throughout] Blood Pressure O2 Sat by Pulse 96 Oximetry - Lab 08/11/18 04:11 08/13/18 04:18 Most recent lab results Calcium 8.8 mg/dL (8.4-10.2) 08/13/18 04:18 Phosphorus 3.50 mg/dL (2.5-4.5) 08/13/18 04:18 Magnesium 2.20 mg/dL (1.7-2.3) 08/13/18 04:18 Medications & Allergies - Medications Allergies/Adverse Reactions: Allergies No Known Allergies Allergy (Unverified 07/18/18 20:42) Home Medications: Home Medications Medication Instructions Recorded Confirmed Last Taken Type Furosemide [Lasix] 20 mg PO DAILY 0107/19/18 07/18/18 History Insulin Aspart [Novolog Flexpen] 100 unit SQ TID 07/19/18 07/19/18 07/18/18 History Losartan Potassium [Cozaar] 50 mg PO DAILY 07/19/18 07/19/18 07/18/18 History Metoprolol Xl [Metoprolol 25 mg PO QDAY 07/19/18 07/19/18 07/18/18 History SUCCINATE ER TAB] Naproxen 500 mg PO BID 07/19/18 07/19/18 07/18/18 History Ranitidine HCl [Acid Control] 150 mg PO BID 07/19/18 07/19/18 07/18/18 History Active Medications: Generic Name Dose Route Start Last Admin Trade Name Freq PRN Reason Stop Dose Admin Albuterol 2.5 mg 07/24/18 20:13 07/24/18 20:31 Proventil IH 2.5 mg Q4HRT PRN Administration Shortness Of Breath Albuterol/Ipratropium 1 ampul 07/25/18 14:00 08/13/18 07:53 Duoneb *Not For Prn Use* IH 1 ampul TIDRT TRINY Administration Amlodipine Besylate 10 mg 08/09/18 16:00 08/13/18 10:03 Norvasc PO 10 mg QDAY TRINY Administration Clonidine HCl 0.3 mg 07/25/18 10:00 08/08/18 10:02 Catapres-Tts Patch TD 0.3 mg Mo TRINY Administration Dextrose 50 ml 07/19/18 02:51 D50w (25gm) Syringe IV PRN PRN Hypoglycemia Hydralazine HCl 20 mg 08/09/18 14:00 08/13/18 10:03 Apresoline IV 20 mg Q6H TRINY Administration Amino Acids/Electrolytes/Dextrose 1,560 mls @ 65 mls/hr 08/12/18 20:00 08/12/18 20:14 Tpn Adult IV 08/13/18 19:59 65 mls/hr DAILY@2000 TRINY Administration Protocol Insulin Glargine 20 units 08/02/18 11:00 08/13/18 10:07 Lantus SUB-Q 20 units DAILY TRINY Administration Insulin Human Lispro 0 unit 08/12/18 12:00 08/13/18 06:47 Humalog SUB-Q 4 unit Q6HR TRINY Administration Protocol Labetalol HCl 10 mg 07/26/18 12:37 08/08/18 05:06 Normodyne IV 10 mg Q4H PRN Administration Blood Pressure Morphine Sulfate 2 mg 08/03/18 00:21 08/13/18 00:35 Morphine IV 2 mg Q3H PRN Administration Pain, Moderate (4-6) Multi-Ingred Cream/Lotion/Oil/Oint 1 applic 08/01/18 11:56 Artificial Tears Ophth Oint OU Q4HR PRN Dry Eye(s) Pantoprazole Sodium 40 mg 08/02/18 10:00 08/13/18 10:03 Protonix IV 40 mg QDAY TRINY Administration
[2018-08-13] MEDS ORDERED: D5W 1,000 ML IV SCH (11:00)
--- NOTE | 2018-08-13 13:05 | Progress Note ---
Assessment and Plan Imp: 1. Colon cancer 2. Perforated viscus 3. Sepsis 4. Acute respiratory failure, hypoxia 5. Bibasilar atelectasis 6. SHREYAS 7. Hypernatremia Rec: 1. CXR findings likely reflect atelectasis due to hypoventilation in setting of abdominal pain/distension + bed-bound status/weakness; doubt pneumonia; would focus on incentive spirometry and mobilization w/ PT, etc. 2. Can continue the Duonebs 3. SCDs 4. BP control 5. IVFs per renal 6. We will monitor with you; pulm-meza stable for d/c Plan of care reviewed with patient/family, they understand/agree Subjective Date of service: 08/13/18 Principal diagnosis: feeling better Interval history: No events. On 2L NC. Alert. No SOB or other complaints. Active Medications Albuterol (Proventil) 2.5 mg IH Q4HRT PRN PRN Reason: Shortness Of Breath Last Admin: 07/24/18 20:31 Dose: 2.5 mg Documented by: Albuterol/Ipratropium (Duoneb *Not For Prn Use*) 1 ampul IH TIDRT [facility] Last Admin: 08/13/18 07:53 Dose: 1 ampul Documented by: Amlodipine Besylate (Norvasc) 10 mg PO QDAY [facility] Last Admin: 08/13/18 10:03 Dose: 10 mg Documented by: Clonidine HCl (Catapres-Tts Patch) 0.3 mg TD Mo [facility] Last Admin: 08/08/18 10:02 Dose: 0.3 mg Documented by: Dextrose (D50w (25gm) Syringe) 50 ml IV PRN PRN PRN Reason: Hypoglycemia Hydralazine HCl (Apresoline) 20 mg IV Q6H [facility] Last Admin: 08/13/18 10:03 Dose: 20 mg Documented by: Amino Acids/Electrolytes/Dextrose (Tpn Adult) 1,560 mls @ 65 mls/hr IV DAILY@1999 [facility]; Protocol Stop: 08/13/18 19:59 Last Admin: 08/12/18 20:14 Dose: 65 mls/hr Documented by: Dextrose (D5w) 1,000 mls @ 75 mls/hr IV DIRECT [facility] Stop: 08/14/18 11:00 Insulin Glargine (Lantus) 20 units SUB-Q DAILY [facility] Last Admin: 08/13/18 10:07 Dose: 20 units Documented by: Insulin Human Lispro (Humalog) 0 unit SUB-Q Q6HR [facility]; Protocol Last Admin: 08/13/18 11:40 Dose: 4 unit Documented by: Labetalol HCl (Normodyne) 10 mg IV Q4H PRN PRN Reason: Blood Pressure Last Admin: 08/08/18 05:06 Dose: 10 mg Documented by: Morphine Sulfate (Morphine) 2 mg IV Q3H PRN PRN Reason: Pain, Moderate (4-6) Last Admin: 08/13/18 12:34 Dose: 2 mg Documented by: Multi-Ingred Cream/Lotion/Oil/Oint (Artificial Tears Ophth Oint) 1 applic OU Q4HR PRN PRN Reason: Dry Eye(s) Pantoprazole Sodium (Protonix) 40 mg IV QDAY [facility] Last Admin: 08/13/18 10:03 Dose: 40 mg Documented by: Objective Vital Signs - 12hr 08/13/18 08/13/18 08/13/18 02:26 03:43 07:52 Temperature 98.5 F 98.3 F Pulse Rate 93 H 93 H 90 Pulse Rate [ Anterior Bilateral Throughout] Respiratory 20 20 Rate Respiratory Rate [Anterior Bilateral Throughout] Blood Pressure 153/72 153/72 169/65 O2 Sat by Pulse 98 98 Oximetry 08/13/18 08/13/18 07:54 07:59 Temperature Pulse Rate Pulse Rate [ 85 88 Anterior Bilateral Throughout] Respiratory Rate Respiratory 18 18 Rate [Anterior Bilateral Throughout] Blood Pressure O2 Sat by Pulse 96 Oximetry Constitutional: no acute distress, alert Eyes: non-icteric Neck: supple Effort: normal Ascultation: Bilateral: clear Cardiovascular: regular rate and rhythm (no mrg) Gastrointestinal: normoactive bowel sounds, soft, non-distended Integumentary: normal Extremities: no cyanosis, no edema, pink and warm Neurologic: normal mental status, non-focal exam, pupils equal and round, CN II- XII normal Psychiatric: mood appropriate, affect normal CBC and BMP: 08/11/18 04:11 08/13/18 04:18 ABG, PT/INR, D-dimer: ABG POC ABG pH 7.409 (7.35-7.45) 08/02/18 09:56 POC ABG pCO2 38.5 (35-45) 08/02/18 09:56 POC ABG pO2 70 (80-105) L 08/02/18 09:56 POC ABG HCO3 24.3 08/02/18 09:56 POC ABG Total CO2 25 08/02/18 09:56 POC ABG O2 Sat 94 08/02/18 09:56 PT/INR, D-dimer PT 14.5 Sec. (12.2-14.9) 07/28/18 05:27 INR 1.09 (0.87-1.13) 07/28/18 05:27 Abnormal lab findings: Abnormal Labs 07/18/18 07/18/18 07/18/18 20:28 20:48 20:48 WBC 12.3 H RBC 3.47 L Hgb 9.1 L Hct 28.9 L MCH 26 L RDW 16.1 H Plt Count 473 H Lymph % (Auto) 5.4 L [place] % (Auto) Lymph # 0.7 L [place] # Seg Neutrophils % 86.5 H Seg Neuts % (Manual) Lymphocytes % (Manual) Monocytes % (Manual) Seg Neutrophils # 10.7 H Seg Neutrophils # Man Lymphocytes # (Manual) Monocytes # (Manual) APTT POC ABG pO2 Sodium Potassium Chloride Carbon Dioxide BUN Creatinine Glucose 108 H POC Glucose 109 H Calcium Phosphorus Magnesium Iron TIBC Alkaline Phosphatase C-Reactive Protein Total Protein Albumin 3.1 L Vitamin B12 Crossmatch 07/18/18 07/18/18 07/19/18 20:48 23:12 02:50 WBC RBC 3.35 L Hgb 9.0 L Hct 27.9 L MCH 27 L RDW 15.8 H Plt Count Lymph % (Auto) [place] % (Auto) Lymph # [place] # Seg Neutrophils % Seg Neuts % (Manual) Lymphocytes % (Manual) Monocytes % (Manual) Seg Neutrophils # Seg Neutrophils # Man Lymphocytes # (Manual) Monocytes # (Manual) APTT 23.2 L POC ABG pO2 Sodium Potassium Chloride Carbon Dioxide BUN Creatinine Glucose POC Glucose 106 H Calcium Phosphorus Magnesium Iron TIBC Alkaline Phosphatase C-Reactive Protein Total Protein Albumin Vitamin B12 Crossmatch 07/19/18 07/19/18 07/19/18 02:50 08:00 11:46 WBC RBC Hgb Hct MCH RDW Plt Count Lymph % (Auto) [place] % (Auto) Lymph # [place] # Seg Neutrophils % Seg Neuts % (Manual) Lymphocytes % (Manual) Monocytes % (Manual) Seg Neutrophils # Seg Neutrophils # Man Lymphocytes # (Manual) Monocytes # (Manual) APTT POC ABG pO2 Sodium 136 L Potassium Chloride Carbon Dioxide BUN Creatinine Glucose 105 H POC Glucose 131 H 152 H Calcium Phosphorus Magnesium Iron TIBC Alkaline Phosphatase C-Reactive Protein Total Protein Albumin Vitamin B12 Crossmatch 07/19/18 07/19/18 07/19/18 13:46 15:34 20:42 WBC RBC Hgb Hct MCH RDW Plt Count Lymph % (Auto) [place] % (Auto) Lymph # [place] # Seg Neutrophils % Seg Neuts % (Manual) Lymphocytes % (Manual) Monocytes % (Manual) Seg Neutrophils # Seg Neutrophils # Man Lymphocytes # (Manual) Monocytes # (Manual) APTT POC ABG pO2 Sodium Potassium Chloride Carbon Dioxide BUN Creatinine Glucose POC Glucose 152 H 182 H 187 H Calcium Phosphorus Magnesium Iron TIBC Alkaline Phosphatase C-Reactive Protein Total Protein Albumin Vitamin B12 Crossmatch 07/19/18 07/20/18 07/20/18 23:05 02:15 06:14 WBC RBC Hgb Hct MCH RDW Plt Count Lymph % (Auto) [place] % (Auto) Lymph # [place] # Seg Neutrophils % Seg Neuts % (Manual) Lymphocytes % (Manual) Monocytes % (Manual) Seg Neutrophils # Seg Neutrophils # Man Lymphocytes # (Manual) Monocytes # (Manual) APTT POC ABG pO2 Sodium Potassium Chloride Carbon Dioxide BUN Creatinine Glucose POC Glucose 133 H 154 H 137 H Calcium Phosphorus Magnesium Iron TIBC Alkaline Phosphatase C-Reactive Protein Total Protein Albumin Vitamin B12 Crossmatch 07/20/18 07/20/18 07/20/18 06:47 06:47 12:01 WBC 11.7 H RBC 3.51 L Hgb 9.2 L Hct 29.3 L MCH 26 L RDW 15.9 H Plt Count Lymph % (Auto) 12.0 L [place] % (Auto) Lymph # [place] # Seg Neutrophils % 80.8 H Seg Neuts % (Manual) Lymphocytes % (Manual) Monocytes % (Manual) Seg Neutrophils # 9.4 H Seg Neutrophils # Man Lymphocytes # (Manual) Monocytes # (Manual) APTT POC ABG pO2 Sodium Potassium Chloride Carbon Dioxide BUN Creatinine Glucose 126 H POC Glucose 157 H Calcium 8.3 L Phosphorus Magnesium Iron TIBC Alkaline Phosphatase C-Reactive Protein Total Protein Albumin 2.8 L Vitamin B12 Crossmatch 07/20/18 07/20/18 07/20/18 16:11 19:56 23:34 WBC RBC Hgb Hct MCH RDW Plt Count Lymph % (Auto) [place] % (Auto) Lymph # [place] # Seg Neutrophils % Seg Neuts % (Manual) Lymphocytes % (Manual) Monocytes % (Manual) Seg Neutrophils # Seg Neutrophils # Man Lymphocytes # (Manual) Monocytes # (Manual) APTT POC ABG pO2 Sodium Potassium Chloride Carbon Dioxide BUN Creatinine Glucose POC Glucose 155 H 158 H 149 H Calcium Phosphorus Magnesium Iron TIBC Alkaline Phosphatase C-Reactive Protein Total Protein Albumin Vitamin B12 Crossmatch 07/21/18 07/21/18 07/21/18 04:16 08:11 11:15 WBC RBC Hgb Hct MCH RDW Plt Count Lymph % (Auto) [place] % (Auto) Lymph # [place] # Seg Neutrophils % Seg Neuts % (Manual) Lymphocytes % (Manual) Monocytes % (Manual) Seg Neutrophils # Seg Neutrophils # Man Lymphocytes # (Manual) Monocytes # (Manual) APTT POC ABG pO2 Sodium Potassium Chloride Carbon Dioxide BUN Creatinine Glucose POC Glucose 127 H 142 H 159 H Calcium Phosphorus Magnesium Iron TIBC Alkaline Phosphatase C-Reactive Protein Total Protein Albumin Vitamin B12 Crossmatch 07/21/18 07/21/18 07/21/18 16:12 18:49 23:03 WBC RBC Hgb Hct MCH RDW Plt Count Lymph % (Auto) [place] % (Auto) Lymph # [place] # Seg Neutrophils % Seg Neuts % (Manual) Lymphocytes % (Manual) Monocytes % (Manual) Seg Neutrophils # Seg Neutrophils # Man Lymphocytes # (Manual) Monocytes # (Manual) APTT POC ABG pO2 Sodium Potassium Chloride Carbon Dioxide BUN Creatinine Glucose POC Glucose 134 H 113 H 120 H Calcium Phosphorus Magnesium Iron TIBC Alkaline Phosphatase C-Reactive Protein Total Protein Albumin Vitamin B12 Crossmatch 07/22/18 07/22/18 07/22/18 05:24 08:09 11:42 WBC RBC Hgb Hct MCH RDW Plt Count Lymph % (Auto) [place] % (Auto) Lymph # [place] # Seg Neutrophils % Seg Neuts % (Manual) Lymphocytes % (Manual) Monocytes % (Manual) Seg Neutrophils # Seg Neutrophils # Man Lymphocytes # (Manual) Monocytes # (Manual) APTT POC ABG pO2 Sodium Potassium Chloride Carbon Dioxide BUN Creatinine Glucose POC Glucose 126 H 112 H 143 H Calcium Phosphorus Magnesium Iron TIBC Alkaline Phosphatase C-Reactive Protein Total Protein Albumin Vitamin B12 Crossmatch 07/22/18 07/22/18 07/22/18 13:47 16:26 22:48 WBC RBC 3.16 L Hgb 8.3 L Hct 26.5 L MCH 26 L RDW 16.6 H Plt Count Lymph % (Auto) 12.0 L [place] % (Auto) Lymph # 1.1 L [place] # Seg Neutrophils % 79.9 H Seg Neuts % (Manual) Lymphocytes % (Manual) Monocytes % (Manual) Seg Neutrophils # Seg Neutrophils # Man Lymphocytes # (Manual) Monocytes # (Manual) APTT POC ABG pO2 Sodium Potassium Chloride Carbon Dioxide BUN Creatinine Glucose POC Glucose 132 H 118 H Calcium Phosphorus Magnesium Iron TIBC Alkaline Phosphatase C-Reactive Protein Total Protein Albumin Vitamin B12 Crossmatch 07/23/18 07/23/18 07/23/18 05:01 05:39 05:39 WBC RBC 3.04 L Hgb 8.3 L Hct 25.6 L MCH 27 L RDW 16.7 H Plt Count Lymph % (Auto) 13.1 L [place] % (Auto) 8.1 H Lymph # 1.0 L [place] # Seg Neutrophils % 77.0 H Seg Neuts % (Manual) Lymphocytes % (Manual) Monocytes % (Manual) Seg Neutrophils # Seg Neutrophils # Man Lymphocytes # (Manual) Monocytes # (Manual) APTT POC ABG pO2 Sodium Potassium Chloride Carbon Dioxide BUN 22 H Creatinine Glucose 224 H POC Glucose 197 H Calcium 8.3 L Phosphorus 1.90 L Magnesium 1.60 L Iron TIBC Alkaline Phosphatase C-Reactive Protein Total Protein Albumin 2.8 L Vitamin B12 Crossmatch 07/23/18 07/23/18 07/23/18 07:37 12:10 15:41 WBC RBC Hgb Hct MCH RDW Plt Count Lymph % (Auto) [place] % (Auto) Lymph # [place] # Seg Neutrophils % Seg Neuts % (Manual) Lymphocytes % (Manual) Monocytes % (Manual) Seg Neutrophils # Seg Neutrophils # Man Lymphocytes # (Manual) Monocytes # (Manual) APTT POC ABG pO2 Sodium Potassium Chloride Carbon Dioxide BUN Creatinine Glucose POC Glucose 192 H 191 H 187 H Calcium Phosphorus Magnesium Iron TIBC Alkaline Phosphatase C-Reactive Protein Total Protein Albumin Vitamin B12 Crossmatch 07/23/18 07/24/18 07/24/18 23:12 03:12 04:34 WBC RBC Hgb Hct MCH RDW Plt Count Lymph % (Auto) [place] % (Auto) Lymph # [place] # Seg Neutrophils % Seg Neuts % (Manual) Lymphocytes % (Manual) Monocytes % (Manual) Seg Neutrophils # Seg Neutrophils # Man Lymphocytes # (Manual) Monocytes # (Manual) APTT POC ABG pO2 Sodium Potassium Chloride Carbon Dioxide BUN 25 H Creatinine Glucose 191 H POC Glucose 231 H 224 H Calcium 8.3 L Phosphorus 1.60 L Magnesium 1.60 L Iron TIBC Alkaline Phosphatase C-Reactive Protein Total Protein Albumin Vitamin B12 Crossmatch 07/24/18 07/24/18 07/24/18 08:21 12:12 16:55 WBC RBC Hgb Hct MCH RDW Plt Count Lymph % (Auto) [place] % (Auto) Lymph # [place] # Seg Neutrophils % Seg Neuts % (Manual) Lymphocytes % (Manual) Monocytes % (Manual) Seg Neutrophils # Seg Neutrophils # Man Lymphocytes # (Manual) Monocytes # (Manual) APTT POC ABG pO2 Sodium Potassium Chloride Carbon Dioxide BUN Creatinine Glucose POC Glucose 187 H 167 H 192 H Calcium Phosphorus Magnesium Iron TIBC Alkaline Phosphatase C-Reactive Protein Total Protein Albumin Vitamin B12 Crossmatch 07/24/18 07/24/18 07/25/18 20:30 23:38 02:44 WBC RBC Hgb Hct MCH RDW Plt Count Lymph % (Auto) [place] % (Auto) Lymph # [place] # Seg Neutrophils % Seg Neuts % (Manual) Lymphocytes % (Manual) Monocytes % (Manual) Seg Neutrophils # Seg Neutrophils # Man Lymphocytes # (Manual) Monocytes # (Manual) APTT POC ABG pO2 Sodium Potassium Chloride Carbon Dioxide BUN Creatinine Glucose POC Glucose 192 H 181 H 196 H Calcium Phosphorus Magnesium Iron TIBC Alkaline Phosphatase C-Reactive Protein Total Protein Albumin Vitamin B12 Crossmatch 07/25/18 07/25/18 07/25/18 03:58 03:58 06:35 WBC RBC Hgb Hct MCH RDW Plt Count Lymph % (Auto) [place] % (Auto) Lymph # [place] # Seg Neutrophils % Seg Neuts % (Manual) Lymphocytes % (Manual) Monocytes % (Manual) Seg Neutrophils # Seg Neutrophils # Man Lymphocytes # (Manual) Monocytes # (Manual) APTT POC ABG pO2 Sodium Potassium Chloride Carbon Dioxide BUN 23 H Creatinine Glucose 197 H POC Glucose 203 H Calcium Phosphorus 2.30 L D Magnesium Iron TIBC Alkaline Phosphatase C-Reactive Protein 4.30 H Total Protein Albumin Vitamin B12 Crossmatch 07/25/18 07/25/18 07/25/18 12:04 16:33 19:50 WBC RBC Hgb Hct MCH RDW Plt Count Lymph % (Auto) [place] % (Auto) Lymph # [place] # Seg Neutrophils % Seg Neuts % (Manual) Lymphocytes % (Manual) Monocytes % (Manual) Seg Neutrophils # Seg Neutrophils # Man Lymphocytes # (Manual) Monocytes # (Manual) APTT POC ABG pO2 Sodium Potassium Chloride Carbon Dioxide BUN Creatinine Glucose POC Glucose 153 H 204 H 213 H Calcium Phosphorus Magnesium Iron TIBC Alkaline Phosphatase C-Reactive Protein Total Protein Albumin Vitamin B12 Crossmatch 07/25/18 07/26/18 07/26/18 22:52 02:38 04:13 WBC RBC Hgb Hct MCH RDW Plt Count Lymph % (Auto) [place] % (Auto) Lymph # [place] # Seg Neutrophils % Seg Neuts % (Manual) Lymphocytes % (Manual) Monocytes % (Manual) Seg Neutrophils # Seg Neutrophils # Man Lymphocytes # (Manual) Monocytes # (Manual) APTT POC ABG pO2 Sodium Potassium Chloride Carbon Dioxide BUN 22 H Creatinine Glucose 180 H POC Glucose 182 H 169 H Calcium 8.3 L Phosphorus Magnesium Iron TIBC Alkaline Phosphatase C-Reactive Protein Total Protein Albumin Vitamin B12 Crossmatch 07/26/18 07/26/18 07/27/18 06:37 22:45 02:44 WBC RBC Hgb Hct MCH RDW Plt Count Lymph % (Auto) [place] % (Auto) Lymph # [place] # Seg Neutrophils % Seg Neuts % (Manual) Lymphocytes % (Manual) Monocytes % (Manual) Seg Neutrophils # Seg Neutrophils # Man Lymphocytes # (Manual) Monocytes # (Manual) APTT POC ABG pO2 Sodium Potassium Chloride Carbon Dioxide BUN 24 H Creatinine Glucose 195 H POC Glucose 156 H 237 H Calcium Phosphorus Magnesium Iron TIBC Alkaline Phosphatase C-Reactive Protein Total Protein Albumin Vitamin B12 Crossmatch 07/27/18 07/27/18 07/27/18 02:51 06:27 10:45 WBC RBC Hgb Hct MCH RDW Plt Count Lymph % (Auto) [place] % (Auto) Lymph # [place] # Seg Neutrophils % Seg Neuts % (Manual) Lymphocytes % (Manual) Monocytes % (Manual) Seg Neutrophils # Seg Neutrophils # Man Lymphocytes # (Manual) Monocytes # (Manual) APTT POC ABG pO2 Sodium Potassium Chloride Carbon Dioxide BUN Creatinine Glucose POC Glucose 166 H 212 H 177 H Calcium Phosphorus Magnesium Iron TIBC Alkaline Phosphatase C-Reactive Protein Total Protein Albumin Vitamin B12 Crossmatch 07/27/18 07/28/18 07/28/18 16:14 00:12 05:06 WBC RBC Hgb Hct MCH RDW Plt Count Lymph % (Auto) [place] % (Auto) Lymph # [place] # Seg Neutrophils % Seg Neuts % (Manual) Lymphocytes % (Manual) Monocytes % (Manual) Seg Neutrophils # Seg Neutrophils # Man Lymphocytes # (Manual) Monocytes # (Manual) APTT POC ABG pO2 Sodium Potassium Chloride Carbon Dioxide BUN Creatinine Glucose POC Glucose 225 H 220 H 214 H Calcium Phosphorus Magnesium Iron TIBC Alkaline Phosphatase C-Reactive Protein Total Protein Albumin Vitamin B12 Crossmatch 07/28/18 07/28/18 07/28/18 05:27 08:09 11:05 WBC RBC Hgb Hct MCH RDW Plt Count Lymph % (Auto) [place] % (Auto) Lymph # [place] # Seg Neutrophils % Seg Neuts % (Manual) Lymphocytes % (Manual) Monocytes % (Manual) Seg Neutrophils # Seg Neutrophils # Man Lymphocytes # (Manual) Monocytes # (Manual) APTT POC ABG pO2 Sodium Potassium Chloride Carbon Dioxide BUN 25 H Creatinine 0.6 L Glucose 213 H POC Glucose 228 H 258 H Calcium Phosphorus Magnesium Iron TIBC Alkaline Phosphatase C-Reactive Protein Total Protein Albumin Vitamin B12 Crossmatch 07/28/18 07/28/18 07/28/18 12:19 17:40 17:40 WBC RBC 2.87 L Hgb 7.7 L Hct 24.9 L MCH 27 L RDW 18.0 H Plt Count Lymph % (Auto) [place] % (Auto) Lymph # [place] # Seg Neutrophils % Seg Neuts % (Manual) Lymphocytes % (Manual) Monocytes % (Manual) Seg Neutrophils # Seg Neutrophils # Man Lymphocytes # (Manual) Monocytes # (Manual) APTT POC ABG pO2 Sodium Potassium Chloride Carbon Dioxide BUN Creatinine Glucose POC Glucose 209 H Calcium Phosphorus Magnesium Iron TIBC Alkaline Phosphatase C-Reactive Protein Total Protein Albumin Vitamin B12 Crossmatch See Detail 07/28/18 07/28/18 07/29/18 20:00 23:48 02:29 WBC RBC Hgb Hct MCH RDW Plt Count Lymph % (Auto) [place] % (Auto) Lymph # [place] # Seg Neutrophils % Seg Neuts % (Manual) Lymphocytes % (Manual) Monocytes % (Manual) Seg Neutrophils # Seg Neutrophils # Man Lymphocytes # (Manual) Monocytes # (Manual) APTT POC ABG pO2 Sodium Potassium Chloride Carbon Dioxide BUN Creatinine Glucose POC Glucose 192 H 211 H 217 H Calcium Phosphorus Magnesium Iron TIBC Alkaline Phosphatase C-Reactive Protein Total Protein Albumin Vitamin B12 Crossmatch 07/29/18 07/29/18 07/29/18 05:26 05:26 11:33 WBC RBC 3.20 L Hgb 8.5 L Hct 26.8 L MCH 27 L RDW 17.5 H Plt Count Lymph % (Auto) [place] % (Auto) 10.8 H Lymph # [place] # 1.2 H Seg Neutrophils % 70.8 H Seg Neuts % (Manual) Lymphocytes % (Manual) Monocytes % (Manual) Seg Neutrophils # Seg Neutrophils # Man Lymphocytes # (Manual) Monocytes # (Manual) APTT POC ABG pO2 Sodium Potassium 5.3 H Chloride Carbon Dioxide BUN 25 H Creatinine 0.6 L Glucose 227 H POC Glucose 202 H Calcium Phosphorus Magnesium Iron TIBC Alkaline Phosphatase C-Reactive Protein Total Protein Albumin Vitamin B12 Crossmatch 07/29/18 07/29/18 07/30/18 18:35 23:01 04:27 WBC RBC Hgb Hct MCH RDW Plt Count Lymph % (Auto) [place] % (Auto) Lymph # [place] # Seg Neutrophils % Seg Neuts % (Manual) Lymphocytes % (Manual) Monocytes % (Manual) Seg Neutrophils # Seg Neutrophils # Man Lymphocytes # (Manual) Monocytes # (Manual) APTT POC ABG pO2 Sodium Potassium Chloride Carbon Dioxide BUN Creatinine Glucose POC Glucose 194 H 218 H 176 H Calcium Phosphorus Magnesium Iron TIBC Alkaline Phosphatase C-Reactive Protein Total Protein Albumin Vitamin B12 Crossmatch 07/30/18 07/30/18 07/30/18 10:12 11:00 11:00 WBC RBC Hgb Hct MCH RDW 17.9 H Plt Count Lymph % (Auto) 12.3 L [place] % (Auto) 10.2 H Lymph # [place] # 1.0 H Seg Neutrophils % 75.4 H Seg Neuts % (Manual) Lymphocytes % (Manual) Monocytes % (Manual) Seg Neutrophils # Seg Neutrophils # Man Lymphocytes # (Manual) Monocytes # (Manual) APTT POC ABG pO2 Sodium Potassium Chloride Carbon Dioxide BUN 22 H Creatinine Glucose 269 H POC Glucose 265 H Calcium Phosphorus Magnesium Iron TIBC Alkaline Phosphatase C-Reactive Protein Total Protein Albumin Vitamin B12 Crossmatch 07/30/18 07/30/18 07/30/18 15:11 17:21 21:47 WBC RBC Hgb Hct MCH RDW Plt Count Lymph % (Auto) [place] % (Auto) Lymph # [place] # Seg Neutrophils % Seg Neuts % (Manual) Lymphocytes % (Manual) Monocytes % (Manual) Seg Neutrophils # Seg Neutrophils # Man Lymphocytes # (Manual) Monocytes # (Manual) APTT POC ABG pO2 Sodium Potassium Chloride Carbon Dioxide BUN Creatinine Glucose POC Glucose 208 H 177 H 146 H Calcium Phosphorus Magnesium Iron TIBC Alkaline Phosphatase C-Reactive Protein Total Protein Albumin Vitamin B12 Crossmatch 07/31/18 07/31/18 07/31/18 02:13 03:56 10:15 WBC RBC Hgb Hct MCH RDW Plt Count Lymph % (Auto) [place] % (Auto) Lymph # [place] # Seg Neutrophils % Seg Neuts % (Manual) Lymphocytes % (Manual) Monocytes % (Manual) Seg Neutrophils # Seg Neutrophils # Man Lymphocytes # (Manual) Monocytes # (Manual) APTT POC ABG pO2 Sodium Potassium Chloride Carbon Dioxide BUN 26 H Creatinine 0.6 L Glucose 201 H POC Glucose 208 H 216 H Calcium Phosphorus Magnesium Iron TIBC Alkaline Phosphatase C-Reactive Protein Total Protein Albumin Vitamin B12 Crossmatch 07/31/18 07/31/18 08/01/18 15:42 22:34 03:09 WBC RBC Hgb Hct MCH RDW Plt Count Lymph % (Auto) [place] % (Auto) Lymph # [place] # Seg Neutrophils % Seg Neuts % (Manual) Lymphocytes % (Manual) Monocytes % (Manual) Seg Neutrophils # Seg Neutrophils # Man Lymphocytes # (Manual) Monocytes # (Manual) APTT POC ABG pO2 Sodium Potassium Chloride Carbon Dioxide BUN Creatinine Glucose POC Glucose 205 H 236 H 253 H Calcium Phosphorus Magnesium Iron TIBC Alkaline Phosphatase C-Reactive Protein Total Protein Albumin Vitamin B12 Crossmatch 08/01/18 08/01/18 08/01/18 04:19 06:14 07:18 WBC RBC Hgb Hct MCH RDW Plt Count Lymph % (Auto) [place] % (Auto) Lymph # [place] # Seg Neutrophils % Seg Neuts % (Manual) Lymphocytes % (Manual) Monocytes % (Manual) Seg Neutrophils # Seg Neutrophils # Man Lymphocytes # (Manual) Monocytes # (Manual) APTT POC ABG pO2 Sodium Potassium 3.3 L Chloride Carbon Dioxide BUN 26 H Creatinine 0.5 L Glucose 238 H POC Glucose 257 H Calcium 7.1 L D Phosphorus Magnesium Iron TIBC Alkaline Phosphatase C-Reactive Protein Total Protein Albumin Vitamin B12 Crossmatch See Detail 08/01/18 08/01/18 08/01/18 11:41 12:13 16:28 WBC RBC Hgb Hct MCH RDW Plt Count Lymph % (Auto) [place] % (Auto) Lymph # [place] # Seg Neutrophils % Seg Neuts % (Manual) Lymphocytes % (Manual) Monocytes % (Manual) Seg Neutrophils # Seg Neutrophils # Man Lymphocytes # (Manual) Monocytes # (Manual) APTT POC ABG pO2 339 H Sodium Potassium Chloride Carbon Dioxide BUN Creatinine Glucose POC Glucose 184 H 305 H Calcium Phosphorus Magnesium Iron TIBC Alkaline Phosphatase C-Reactive Protein Total Protein Albumin Vitamin B12 Crossmatch 08/01/18 08/01/18 08/02/18 18:25 21:09 02:01 WBC RBC Hgb Hct MCH RDW Plt Count Lymph % (Auto) [place] % (Auto) Lymph # [place] # Seg Neutrophils % Seg Neuts % (Manual) Lymphocytes % (Manual) Monocytes % (Manual) Seg Neutrophils # Seg Neutrophils # Man Lymphocytes # (Manual) Monocytes # (Manual) APTT POC ABG pO2 Sodium Potassium Chloride Carbon Dioxide BUN Creatinine Glucose POC Glucose 338 H 328 H 350 H Calcium Phosphorus Magnesium Iron TIBC Alkaline Phosphatase C-Reactive Protein Total Protein Albumin Vitamin B12 Crossmatch 08/02/18 08/02/18 08/02/18 04:26 04:26 05:47 WBC 20.9 H RBC Hgb Hct MCH RDW 20.1 H Plt Count Lymph % (Auto) [place] % (Auto) Lymph # [place] # Seg Neutrophils % Seg Neuts % (Manual) 90.0 H Lymphocytes % (Manual) 7.0 L Monocytes % (Manual) Seg Neutrophils # Seg Neutrophils # Man 18.8 H Lymphocytes # (Manual) Monocytes # (Manual) APTT POC ABG pO2 Sodium 133 L Potassium Chloride 97.5 L Carbon Dioxide BUN 48 H Creatinine Glucose 347 H POC Glucose 351 H Calcium 7.8 L Phosphorus Magnesium Iron TIBC Alkaline Phosphatase C-Reactive Protein Total Protein 5.4 L Albumin 2.2 L Vitamin B12 Crossmatch 08/02/18 08/02/18 08/02/18 05:52 09:56 10:02 WBC RBC Hgb Hct MCH RDW Plt Count Lymph % (Auto) [place] % (Auto) Lymph # [place] # Seg Neutrophils % Seg Neuts % (Manual) Lymphocytes % (Manual) Monocytes % (Manual) Seg Neutrophils # Seg Neutrophils # Man Lymphocytes # (Manual) Monocytes # (Manual) APTT POC ABG pO2 74 L 70 L Sodium Potassium Chloride Carbon Dioxide BUN Creatinine Glucose POC Glucose 351 H Calcium Phosphorus Magnesium Iron TIBC Alkaline Phosphatase C-Reactive Protein Total Protein Albumin Vitamin B12 Crossmatch 08/02/18 08/02/18 08/03/18 16:34 22:28 03:13 WBC RBC Hgb Hct MCH RDW Plt Count Lymph % (Auto) [place] % (Auto) Lymph # [place] # Seg Neutrophils % Seg Neuts % (Manual) Lymphocytes % (Manual) Monocytes % (Manual) Seg Neutrophils # Seg Neutrophils # Man Lymphocytes # (Manual) Monocytes # (Manual) APTT POC ABG pO2 Sodium Potassium Chloride Carbon Dioxide BUN Creatinine Glucose POC Glucose 250 H 175 H 189 H Calcium Phosphorus Magnesium Iron TIBC Alkaline Phosphatase C-Reactive Protein Total Protein Albumin Vitamin B12 Crossmatch 08/03/18 08/03/18 08/03/18 04:42 04:42 04:42 WBC 16.5 H RBC 3.43 L Hgb 9.6 L Hct MCH RDW 20.2 H Plt Count Lymph % (Auto) 7.9 L [place] % (Auto) 10.8 H Lymph # [place] # 1.8 H Seg Neutrophils % 80.5 H Seg Neuts % (Manual) Lymphocytes % (Manual) Monocytes % (Manual) Seg Neutrophils # 13.3 H Seg Neutrophils # Man Lymphocytes # (Manual) Monocytes # (Manual) APTT POC ABG pO2 Sodium Potassium Chloride Carbon Dioxide BUN 69 H Creatinine 2.0 H D Glucose 163 H POC Glucose Calcium 7.9 L Phosphorus 6.80 H D Magnesium 2.40 H Iron TIBC Alkaline Phosphatase C-Reactive Protein Total Protein 5.5 L Albumin 2.5 L Vitamin B12 Crossmatch 08/03/18 08/03/18 08/03/18 06:21 08:34 10:16 WBC RBC Hgb Hct MCH RDW Plt Count Lymph % (Auto) [place] % (Auto) Lymph # [place] # Seg Neutrophils % Seg Neuts % (Manual) Lymphocytes % (Manual) Monocytes % (Manual) Seg Neutrophils # Seg Neutrophils # Man Lymphocytes # (Manual) Monocytes # (Manual) APTT POC ABG pO2 Sodium Potassium Chloride Carbon Dioxide BUN Creatinine Glucose POC Glucose 163 H 129 H 134 H Calcium Phosphorus Magnesium Iron TIBC Alkaline Phosphatase C-Reactive Protein Total Protein Albumin Vitamin B12 Crossmatch 08/03/18 08/03/18 08/04/18 14:18 21:44 00:19 WBC RBC Hgb Hct MCH RDW Plt Count Lymph % (Auto) [place] % (Auto) Lymph # [place] # Seg Neutrophils % Seg Neuts % (Manual) Lymphocytes % (Manual) Monocytes % (Manual) Seg Neutrophils # Seg Neutrophils # Man Lymphocytes # (Manual) Monocytes # (Manual) APTT POC ABG pO2 Sodium Potassium Chloride Carbon Dioxide BUN Creatinine Glucose POC Glucose 199 H 189 H 162 H Calcium Phosphorus Magnesium Iron TIBC Alkaline Phosphatase C-Reactive Protein Total Protein Albumin Vitamin B12 Crossmatch 08/04/18 08/04/18 08/04/18 04:07 04:15 04:15 WBC 11.1 H RBC 2.93 L Hgb 8.5 L Hct 25.7 L MCH RDW 20.5 H Plt Count Lymph % (Auto) 7.7 L [place] % (Auto) 10.3 H Lymph # 0.9 L [place] # 1.1 H Seg Neutrophils % 80.6 H Seg Neuts % (Manual) Lymphocytes % (Manual) Monocytes % (Manual) Seg Neutrophils # 8.9 H Seg Neutrophils # Man Lymphocytes # (Manual) Monocytes # (Manual) APTT POC ABG pO2 Sodium Potassium Chloride Carbon Dioxide BUN 89 H Creatinine 2.3 H Glucose 196 H POC Glucose 211 H Calcium 7.7 L Phosphorus 6.60 H Magnesium 2.50 H Iron TIBC Alkaline Phosphatase C-Reactive Protein Total Protein Albumin Vitamin B12 Crossmatch 08/04/18 08/04/18 08/04/18 07:56 10:17 14:06 WBC RBC Hgb Hct MCH RDW Plt Count Lymph % (Auto) [place] % (Auto) Lymph # [place] # Seg Neutrophils % Seg Neuts % (Manual) Lymphocytes % (Manual) Monocytes % (Manual) Seg Neutrophils # Seg Neutrophils # Man Lymphocytes # (Manual) Monocytes # (Manual) APTT POC ABG pO2 Sodium Potassium Chloride Carbon Dioxide BUN Creatinine Glucose POC Glucose 229 H 221 H 182 H Calcium Phosphorus Magnesium Iron TIBC Alkaline Phosphatase C-Reactive Protein Total Protein Albumin Vitamin B12 Crossmatch 08/04/18 08/05/18 08/05/18 20:10 01:26 05:23 WBC RBC Hgb Hct MCH RDW Plt Count Lymph % (Auto) [place] % (Auto) Lymph # [place] # Seg Neutrophils % Seg Neuts % (Manual) Lymphocytes % (Manual) Monocytes % (Manual) Seg Neutrophils # Seg Neutrophils # Man Lymphocytes # (Manual) Monocytes # (Manual) APTT POC ABG pO2 Sodium 147 H Potassium Chloride 111.9 H Carbon Dioxide BUN 94 H Creatinine 2.1 H Glucose 158 H POC Glucose 201 H 170 H Calcium 7.8 L Phosphorus Magnesium 2.40 H Iron TIBC Alkaline Phosphatase C-Reactive Protein Total Protein Albumin Vitamin B12 Crossmatch 08/05/18 08/05/18 08/05/18 05:23 05:42 08:21 WBC RBC 2.96 L Hgb 8.5 L Hct 26.0 L MCH RDW 19.9 H Plt Count Lymph % (Auto) [place] % (Auto) Lymph # [place] # Seg Neutrophils % Seg Neuts % (Manual) 78.0 H Lymphocytes % (Manual) 11.0 L Monocytes % (Manual) 10.0 H Seg Neutrophils # Seg Neutrophils # Man Lymphocytes # (Manual) 1.0 L Monocytes # (Manual) 0.9 H APTT POC ABG pO2 Sodium Potassium Chloride Carbon Dioxide BUN Creatinine Glucose POC Glucose 166 H 178 H Calcium Phosphorus Magnesium Iron TIBC Alkaline Phosphatase C-Reactive Protein Total Protein Albumin Vitamin B12 Crossmatch 08/05/18 08/05/18 08/05/18 11:11 15:53 20:15 WBC RBC Hgb Hct MCH RDW Plt Count Lymph % (Auto) [place] % (Auto) Lymph # [place] # Seg Neutrophils % Seg Neuts % (Manual) Lymphocytes % (Manual) Monocytes % (Manual) Seg Neutrophils # Seg Neutrophils # Man Lymphocytes # (Manual) Monocytes # (Manual) APTT POC ABG pO2 Sodium Potassium Chloride Carbon Dioxide BUN Creatinine Glucose POC Glucose 200 H 157 H 194 H Calcium Phosphorus Magnesium Iron TIBC Alkaline Phosphatase C-Reactive Protein Total Protein Albumin Vitamin B12 Crossmatch 08/05/18 08/06/18 08/06/18 22:32 04:37 04:41 WBC RBC Hgb Hct MCH RDW Plt Count Lymph % (Auto) [place] % (Auto) Lymph # [place] # Seg Neutrophils % Seg Neuts % (Manual) Lymphocytes % (Manual) Monocytes % (Manual) Seg Neutrophils # Seg Neutrophils # Man Lymphocytes # (Manual) Monocytes # (Manual) APTT POC ABG pO2 Sodium 150 H Potassium Chloride 114.5 H Carbon Dioxide BUN 89 H Creatinine 1.9 H Glucose 196 H POC Glucose 209 H 207 H Calcium 8.3 L Phosphorus Magnesium Iron TIBC Alkaline Phosphatase C-Reactive Protein Total Protein Albumin Vitamin B12 Crossmatch 08/06/18 08/06/18 08/06/18 04:41 07:42 11:59 WBC RBC 3.09 L Hgb 8.7 L Hct 26.9 L MCH RDW 19.7 H Plt Count Lymph % (Auto) [place] % (Auto) Lymph # [place] # Seg Neutrophils % Seg Neuts % (Manual) 81.0 H Lymphocytes % (Manual) 12.0 L Monocytes % (Manual) Seg Neutrophils # Seg Neutrophils # Man Lymphocytes # (Manual) 0.9 L Monocytes # (Manual) APTT POC ABG pO2 Sodium Potassium Chloride Carbon Dioxide BUN Creatinine Glucose POC Glucose 178 H 195 H Calcium Phosphorus Magnesium Iron TIBC Alkaline Phosphatase C-Reactive Protein Total Protein Albumin Vitamin B12 Crossmatch 08/06/18 08/06/18 08/07/18 14:30 21:41 02:30 WBC RBC Hgb Hct MCH RDW Plt Count Lymph % (Auto) [place] % (Auto) Lymph # [place] # Seg Neutrophils % Seg Neuts % (Manual) Lymphocytes % (Manual) Monocytes % (Manual) Seg Neutrophils # Seg Neutrophils # Man Lymphocytes # (Manual) Monocytes # (Manual) APTT POC ABG pO2 Sodium Potassium Chloride Carbon Dioxide BUN Creatinine Glucose POC Glucose 184 H 181 H 202 H Calcium Phosphorus Magnesium Iron TIBC Alkaline Phosphatase C-Reactive Protein Total Protein Albumin Vitamin B12 Crossmatch 08/07/18 08/07/18 08/07/18 04:00 04:00 04:00 WBC RBC Hgb Hct MCH RDW 20.0 H Plt Count Lymph % (Auto) [place] % (Auto) Lymph # [place] # Seg Neutrophils % Seg Neuts % (Manual) 78.0 H Lymphocytes % (Manual) 10.0 L Monocytes % (Manual) Seg Neutrophils # Seg Neutrophils # Man Lymphocytes # (Manual) 0.9 L Monocytes # (Manual) APTT POC ABG pO2 Sodium 152 H Potassium Chloride 113.2 H Carbon Dioxide BUN 81 H Creatinine 1.7 H Glucose 203 H POC Glucose Calcium Phosphorus Magnesium Iron 17 L TIBC 122 L Alkaline Phosphatase C-Reactive Protein Total Protein Albumin 2.3 L Vitamin B12 1012 H Crossmatch 08/07/18 08/07/18 08/07/18 06:29 07:19 11:00 WBC RBC Hgb Hct MCH RDW Plt Count Lymph % (Auto) [place] % (Auto) Lymph # [place] # Seg Neutrophils % Seg Neuts % (Manual) Lymphocytes % (Manual) Monocytes % (Manual) Seg Neutrophils # Seg Neutrophils # Man Lymphocytes # (Manual) Monocytes # (Manual) APTT POC ABG pO2 Sodium Potassium Chloride Carbon Dioxide BUN Creatinine Glucose POC Glucose 226 H 240 H 174 H Calcium Phosphorus Magnesium Iron TIBC Alkaline Phosphatase C-Reactive Protein Total Protein Albumin Vitamin B12 Crossmatch 08/07/18 08/07/18 08/08/18 15:43 18:09 02:13 WBC RBC Hgb Hct MCH RDW Plt Count Lymph % (Auto) [place] % (Auto) Lymph # [place] # Seg Neutrophils % Seg Neuts % (Manual) Lymphocytes % (Manual) Monocytes % (Manual) Seg Neutrophils # Seg Neutrophils # Man Lymphocytes # (Manual) Monocytes # (Manual) APTT POC ABG pO2 Sodium Potassium Chloride Carbon Dioxide BUN Creatinine Glucose POC Glucose 201 H 210 H 229 H Calcium Phosphorus Magnesium Iron TIBC Alkaline Phosphatase C-Reactive Protein Total Protein Albumin Vitamin B12 Crossmatch 08/08/18 08/08/18 08/08/18 08:00 10:42 14:34 WBC RBC Hgb Hct MCH RDW Plt Count Lymph % (Auto) [place] % (Auto) Lymph # [place] # Seg Neutrophils % Seg Neuts % (Manual) Lymphocytes % (Manual) Monocytes % (Manual) Seg Neutrophils # Seg Neutrophils # Man Lymphocytes # (Manual) Monocytes # (Manual) APTT POC ABG pO2 Sodium Potassium Chloride Carbon Dioxide BUN Creatinine Glucose POC Glucose 254 H 186 H 171 H Calcium Phosphorus Magnesium Iron TIBC Alkaline Phosphatase C-Reactive Protein Total Protein Albumin Vitamin B12 Crossmatch 08/08/18 08/08/18 08/08/18 19:59 23:04 Unknown WBC RBC Hgb Hct MCH RDW Plt Count Lymph % (Auto) [place] % (Auto) Lymph # [place] # Seg Neutrophils % Seg Neuts % (Manual) Lymphocytes % (Manual) Monocytes % (Manual) Seg Neutrophils # Seg Neutrophils # Man Lymphocytes # (Manual) Monocytes # (Manual) APTT POC ABG pO2 Sodium 153 H Potassium Chloride 115.1 H Carbon Dioxide BUN 74 H Creatinine 1.4 H Glucose 255 H POC Glucose 203 H 233 H Calcium Phosphorus 2.40 L Magnesium Iron TIBC Alkaline Phosphatase C-Reactive Protein Total Protein Albumin Vitamin B12 Crossmatch 08/09/18 08/09/18 08/09/18 02:27 05:30 05:30 WBC RBC 3.31 L Hgb 9.6 L Hct 29.0 L MCH RDW 19.6 H Plt Count Lymph % (Auto) [place] % (Auto) Lymph # [place] # Seg Neutrophils % Seg Neuts % (Manual) Lymphocytes % (Manual) Monocytes % (Manual) Seg Neutrophils # Seg Neutrophils # Man Lymphocytes # (Manual) Monocytes # (Manual) APTT POC ABG pO2 Sodium 150 H Potassium Chloride 112.8 H Carbon Dioxide 21 L BUN 72 H Creatinine 1.6 H Glucose 252 H POC Glucose 264 H Calcium Phosphorus Magnesium 1.60 L Iron TIBC Alkaline Phosphatase C-Reactive Protein Total Protein Albumin 2.6 L Vitamin B12 Crossmatch 08/09/18 08/09/18 08/09/18 07:50 10:14 10:43 WBC RBC Hgb Hct MCH RDW Plt Count Lymph % (Auto) [place] % (Auto) Lymph # [place] # Seg Neutrophils % Seg Neuts % (Manual) Lymphocytes % (Manual) Monocytes % (Manual) Seg Neutrophils # Seg Neutrophils # Man Lymphocytes # (Manual) Monocytes # (Manual) APTT POC ABG pO2 Sodium Potassium Chloride Carbon Dioxide BUN Creatinine Glucose POC Glucose 258 H 221 H Calcium Phosphorus Magnesium 1.40 L Iron TIBC Alkaline Phosphatase C-Reactive Protein Total Protein Albumin Vitamin B12 Crossmatch 08/09/18 08/09/18 08/09/18 11:31 14:26 19:06 WBC RBC Hgb Hct MCH RDW Plt Count Lymph % (Auto) [place] % (Auto) Lymph # [place] # Seg Neutrophils % Seg Neuts % (Manual) Lymphocytes % (Manual) Monocytes % (Manual) Seg Neutrophils # Seg Neutrophils # Man Lymphocytes # (Manual) Monocytes # (Manual) APTT POC ABG pO2 Sodium Potassium Chloride Carbon Dioxide BUN Creatinine Glucose POC Glucose 240 H 242 H 198 H Calcium Phosphorus Magnesium Iron TIBC Alkaline Phosphatase C-Reactive Protein Total Protein Albumin Vitamin B12 Crossmatch 08/09/18 08/10/18 08/10/18 22:16 02:39 04:08 WBC RBC 3.18 L Hgb 8.7 L Hct 27.7 L MCH RDW 19.9 H Plt Count Lymph % (Auto) [place] % (Auto) Lymph # [place] # Seg Neutrophils % Seg Neuts % (Manual) Lymphocytes % (Manual) Monocytes % (Manual) Seg Neutrophils # Seg Neutrophils # Man Lymphocytes # (Manual) Monocytes # (Manual) APTT POC ABG pO2 Sodium Potassium Chloride Carbon Dioxide BUN Creatinine Glucose POC Glucose 188 H 196 H Calcium Phosphorus Magnesium Iron TIBC Alkaline Phosphatase C-Reactive Protein Total Protein Albumin Vitamin B12 Crossmatch 08/10/18 08/10/18 08/10/18 04:08 07:14 09:28 WBC RBC Hgb Hct MCH RDW Plt Count Lymph % (Auto) [place] % (Auto) Lymph # [place] # Seg Neutrophils % Seg Neuts % (Manual) Lymphocytes % (Manual) Monocytes % (Manual) Seg Neutrophils # Seg Neutrophils # Man Lymphocytes # (Manual) Monocytes # (Manual) APTT POC ABG pO2 Sodium 147 H Potassium 3.3 L Chloride 110.0 H Carbon Dioxide BUN 65 H Creatinine 1.3 H Glucose 199 H POC Glucose 194 H 253 H Calcium Phosphorus Magnesium Iron TIBC Alkaline Phosphatase 147 H C-Reactive Protein Total Protein Albumin 2.6 L Vitamin B12 Crossmatch 08/10/18 08/10/18 08/10/18 11:09 14:55 18:35 WBC RBC Hgb Hct MCH RDW Plt Count Lymph % (Auto) [place] % (Auto) Lymph # [place] # Seg Neutrophils % Seg Neuts % (Manual) Lymphocytes % (Manual) Monocytes % (Manual) Seg Neutrophils # Seg Neutrophils # Man Lymphocytes # (Manual) Monocytes # (Manual) APTT POC ABG pO2 Sodium Potassium Chloride Carbon Dioxide BUN Creatinine Glucose POC Glucose 321 H 230 H 116 H Calcium Phosphorus Magnesium Iron TIBC Alkaline Phosphatase C-Reactive Protein Total Protein Albumin Vitamin B12 Crossmatch 08/10/18 08/11/18 08/11/18 23:33 03:15 04:11 WBC RBC 2.85 L Hgb 8.1 L Hct 24.6 L MCH RDW 19.8 H Plt Count Lymph % (Auto) [place] % (Auto) Lymph # [place] # Seg Neutrophils % Seg Neuts % (Manual) Lymphocytes % (Manual) Monocytes % (Manual) Seg Neutrophils # Seg Neutrophils # Man Lymphocytes # (Manual) Monocytes # (Manual) APTT POC ABG pO2 Sodium Potassium Chloride Carbon Dioxide BUN Creatinine Glucose POC Glucose 174 H 216 H Calcium Phosphorus Magnesium Iron TIBC Alkaline Phosphatase C-Reactive Protein Total Protein Albumin Vitamin B12 Crossmatch 08/11/18 08/11/18 08/11/18 04:11 07:21 09:55 WBC RBC Hgb Hct MCH RDW Plt Count Lymph % (Auto) [place] % (Auto) Lymph # [place] # Seg Neutrophils % Seg Neuts % (Manual) Lymphocytes % (Manual) Monocytes % (Manual) Seg Neutrophils # Seg Neutrophils # Man Lymphocytes # (Manual) Monocytes # (Manual) APTT POC ABG pO2 Sodium Potassium 3.1 L Chloride 108.2 H Carbon Dioxide 21 L BUN 56 H Creatinine Glucose 225 H POC Glucose 199 H 204 H Calcium Phosphorus Magnesium 1.60 L Iron TIBC Alkaline Phosphatase 159 H C-Reactive Protein Total Protein Albumin 2.4 L Vitamin B12 Crossmatch 08/11/18 08/11/18 08/11/18 11:20 15:12 18:38 WBC RBC Hgb Hct MCH RDW Plt Count Lymph % (Auto) [place] % (Auto) Lymph # [place] # Seg Neutrophils % Seg Neuts % (Manual) Lymphocytes % (Manual) Monocytes % (Manual) Seg Neutrophils # Seg Neutrophils # Man Lymphocytes # (Manual) Monocytes # (Manual) APTT POC ABG pO2 Sodium Potassium Chloride Carbon Dioxide BUN Creatinine Glucose POC Glucose 191 H 168 H 144 H Calcium Phosphorus Magnesium Iron TIBC Alkaline Phosphatase C-Reactive Protein Total Protein Albumin Vitamin B12 Crossmatch 08/11/18 08/12/18 08/12/18 22:07 03:24 03:38 WBC RBC Hgb Hct MCH RDW Plt Count Lymph % (Auto) [place] % (Auto) Lymph # [place] # Seg Neutrophils % Seg Neuts % (Manual) Lymphocytes % (Manual) Monocytes % (Manual) Seg Neutrophils # Seg Neutrophils # Man Lymphocytes # (Manual) Monocytes # (Manual) APTT POC ABG pO2 Sodium Potassium Chloride 110.1 H Carbon Dioxide 21 L BUN 58 H Creatinine 1.3 H Glucose 207 H POC Glucose 139 H 204 H Calcium Phosphorus Magnesium Iron TIBC Alkaline Phosphatase C-Reactive Protein Total Protein Albumin Vitamin B12 Crossmatch 08/12/18 08/12/18 08/12/18 07:25 12:10 16:24 WBC RBC Hgb Hct MCH RDW Plt Count Lymph % (Auto) [place] % (Auto) Lymph # [place] # Seg Neutrophils % Seg Neuts % (Manual) Lymphocytes % (Manual) Monocytes % (Manual) Seg Neutrophils # Seg Neutrophils # Man Lymphocytes # (Manual) Monocytes # (Manual) APTT POC ABG pO2 Sodium Potassium Chloride Carbon Dioxide BUN Creatinine Glucose POC Glucose 157 H 292 H 253 H Calcium Phosphorus Magnesium Iron TIBC Alkaline Phosphatase C-Reactive Protein Total Protein Albumin Vitamin B12 Crossmatch 08/13/18 08/13/18 08/13/18 00:24 04:18 06:41 WBC RBC Hgb Hct MCH RDW Plt Count Lymph % (Auto) [place] % (Auto) Lymph # [place] # Seg Neutrophils % Seg Neuts % (Manual) Lymphocytes % (Manual) Monocytes % (Manual) Seg Neutrophils # Seg Neutrophils # Man Lymphocytes # (Manual) Monocytes # (Manual) APTT POC ABG pO2 Sodium 147 H Potassium Chloride 117.0 H Carbon Dioxide BUN 63 H Creatinine 1.8 H Glucose 194 H POC Glucose 151 H 212 H Calcium Phosphorus Magnesium Iron TIBC Alkaline Phosphatase C-Reactive Protein Total Protein Albumin Vitamin B12 Crossmatch 08/13/18 11:37 WBC RBC Hgb Hct MCH RDW Plt Count Lymph % (Auto) [place] % (Auto) Lymph # [place] # Seg Neutrophils % Seg Neuts % (Manual) Lymphocytes % (Manual) Monocytes % (Manual) Seg Neutrophils # Seg Neutrophils # Man Lymphocytes # (Manual) Monocytes # (Manual) APTT POC ABG pO2 Sodium Potassium Chloride Carbon Dioxide BUN Creatinine Glucose POC Glucose 248 H Calcium Phosphorus Magnesium Iron TIBC Alkaline Phosphatase C-Reactive Protein Total Protein Albumin Vitamin B12 Crossmatch Chest x-ray: report reviewed, image reviewed
--- NOTE | 2018-08-13 15:44 | Hem/Onc Progress Note ---
Assessment and Plan 1. T4a N0 Mx adenocarcinoma.bowel perforation, hence labeled as stage 4. 2. A 12 lymph nodes were negative. 3. History of diabetes. 4. History of hypertension. 5. History of fall. 6. History of metabolic encephalopathy. 7. 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 8. History of respiratory failure. 9. History of renal impairment. 10. As per the nursing staff, the patient is DNR. The patient received blood transfusion for anemia. 11. The patient is elderly. 12. As per the information, the patient had bowel perforation, hence labeled as stage 4. 13. The patient was intubated at one time during this admission. 14. I will follow the patient. d/w dr meza d/w family pt was using a walker before coming if pts performance improves - willl look into immune based or targetted therapy abdo drain+ 08/08 - CEA 5.6 08/09 - pt on TPN - will await improvement in pts performance status to decide options 08/10 - pt eating placement being looked into 08/11- pt had a BM - d/w surgical team iv iron 08/12 - still om TPN eating better OP follow up an option 08/13 - d/w multiple family members - who were present - Patient Problems (1) Colon cancer Current Visit: Yes Status: Acute Subjective Date of service: 08/13/18 Principal diagnosis: colon ca Interval history: multiple family members + Objective - Constitutional Vitals: Last Vital Signs Temp 98.1 F 08/13/18 13:19 Pulse 84 08/13/18 14:11 Resp 18 08/13/18 14:11 BP 145/55 08/13/18 13:19 Pulse Ox 98 08/13/18 13:19 Pain Intensity (0-10): denies any pain General appearance: no acute distress Performance status: 3-limited selfcare - EENT Eyes: EOM intact ENT: clear oral mucosa Lymph node exam: negative cervical, negative supraclavicular - Respiratory Respiratory effort: Positive: normal Respiratory: bilateral: CTA - Cardiovascular Heart Sounds: Present: S1 & S2 Extremities: no ischemia - Gastrointestinal General gastrointestinal: Present: soft, non-tender Rectal Exam: deferred - Genitourinary Female genitourinary: Present: deferred - Integumentary Integumentary: warm - Musculoskeletal Musculoskeletal: strength equal bilaterally - Neurologic Neurologic: moves all extremities - Labs Lab Results: Laboratory Results - last 24 hr 08/12/18 08/13/18 08/13/18 16:24 00:24 04:18 Sodium 147 H Potassium 4.7 D Chloride 117.0 H Carbon Dioxide 22 Anion Gap 13 BUN 63 H Creatinine 1.8 H Estimated GFR 32 BUN/Creatinine Ratio 35 Glucose 194 H POC Glucose 253 H 151 H Calcium 8.8 Phosphorus 3.50 Magnesium 2.20 08/13/18 08/13/18 06:41 11:37 Sodium Potassium Chloride Carbon Dioxide Anion Gap BUN Creatinine Estimated GFR BUN/Creatinine Ratio Glucose POC Glucose 212 H 248 H Calcium Phosphorus Magnesium Medications & Allergies - Medications Allergies/Adverse Reactions: Allergies No Known Allergies Allergy (Unverified 07/18/18 20:42) Home Medications: Home Medications Medication Instructions Recorded Confirmed Last Taken Type Furosemide [Lasix] 20 mg PO DAILY 07/19/18 07/19/18 07/18/18 History Insulin Aspart [Novolog Flexpen] 100 unit SQ TID 07/19/18 07/19/18 07/18/18 History Losartan Potassium [Cozaar] 50 mg PO DAILY 07/19/18 07/19/18 07/18/18 History Metoprolol Xl [Metoprolol 25 mg PO QDAY 07/19/18 07/19/18 07/18/18 History SUCCINATE ER TAB] Naproxen 500 mg PO BID 07/19/18 07/19/18 07/18/18 History Ranitidine HCl [Acid Control] 150 mg PO BID 07/19/18 07/19/18 07/18/18 History Active Medications: Generic Name Dose Route Start Last Admin Trade Name Marvin PRN Reason Stop Dose Admin Albuterol 2.5 mg 07/24/18 20:13 07/24/18 20:31 Proventil IH 2.5 mg Q4HRT PRN Administration Shortness Of Breath Albuterol/Ipratropium 1 ampul 07/25/18 14:00 08/13/18 13:47 Duoneb *Not For Prn Use* IH 1 ampul TIDRT TRINY Administration Amlodipine Besylate 10 mg 08/09/18 16:00 08/13/18 10:03 Norvasc PO 10 mg QDAY TRINY Administration Clonidine HCl 0.3 mg 07/25/18 10:00 08/08/18 10:02 Catapres-Tts Patch TD 0.3 mg Mo TRINY Administration Dextrose 50 ml 07/19/18 02:51 D50w (25gm) Syringe IV PRN PRN Hypoglycemia Hydralazine HCl 20 mg 08/09/18 14:00 08/13/18 14:21 Apresoline IV 20 mg Q6H TRINY Administration Amino Acids/Electrolytes/Dextrose 1,560 mls @ 65 mls/hr 08/12/18 20:00 08/12/18 20:14 Tpn Adult IV 08/13/18 19:59 65 mls/hr DAILY@[email or web address] TRINY Administration Protocol Dextrose 1,000 mls @ 75 mls/hr 08/13/18 11:00 D5w IV 08/14/18 11:00 DIRECT TRINY Amino Acids/Electrolytes/Dextrose 1,560 mls @ 65 mls/hr 08/13/18 20:00 Tpn Adult IV 08/14/18 19:59 DAILY@[email or web address] TRINY Protocol Insulin Glargine 20 units 08/02/18 11:00 08/13/18 10:07 Lantus SUB-Q 20 units DAILY TRINY Administration Insulin Human Lispro 0 unit 08/12/18 12:00 08/13/18 11:40 Humalog SUB-Q 4 unit Q6HR TRINY Administration Protocol Labetalol HCl 10 mg 07/26/18 12:37 08/08/18 05:06 Normodyne IV 10 mg Q4H PRN Administration Blood Pressure Morphine Sulfate 2 mg 08/03/18 00:21 08/13/18 12:34 Morphine IV 2 mg Q3H PRN Administration Pain, Moderate (4-6) Multi-Ingred Cream/Lotion/Oil/Oint 1 applic 08/01/18 11:56 Artificial Tears Ophth Oint OU Q4HR PRN Dry Eye(s) Pantoprazole Sodium 40 mg 08/02/18 10:00 08/13/18 10:03 Protonix IV 40 mg QDAY TRINY Administration
[2018-08-13] MEDS ORDERED: TPN ADULT 1,560 ML IV SCH (20:00)
[2018-08-14] MEDS: HumaLOG SUB-Q SCH ×5 (00:23→23:57)
[2018-08-14] MEDS: APRESOLINE IV SCH ×4 (02:09→20:02)
[2018-08-14] MEDS: MORPHINE IV PRN ×4 (02:14→23:52)
[2018-08-14 05:01] LABS: Calcium 8.7 mg/dL (8.4-10.2)
--- NOTE | 2018-08-14 06:21 | Progress Note ---
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: no intervention needed at this time IDDM: ssi DVT/GI prophylaxis: sq heparin, and GI prophylaxis full code Waiting for placement to SNF Electrolytes- normal Subjective Date of service: 08/13/18 Principal diagnosis: colon ca Interval history: Same condition OOB to chair Objective - Constitutional Vitals: Vital Signs - 12hr 08/13/18 08/13/18 08/13/18 19:56 20:05 20:11 Temperature 97.9 F Pulse Rate 92 H Pulse Rate [ 81 84 Anterior Bilateral Throughout] Pulse Rate [ From Monitor] Respiratory 20 Rate Respiratory 18 18 Rate [Anterior Bilateral Throughout] Blood Pressure 147/50 O2 Sat by Pulse 99 95 Oximetry 08/13/18 08/13/18 08/14/18 20:56 22:00 02:00 Temperature 97.4 F L Pulse Rate 89 Pulse Rate [ Anterior Bilateral Throughout] Pulse Rate [ 92 H From Monitor] Respiratory 20 20 Rate Respiratory Rate [Anterior Bilateral Throughout] Blood Pressure 147/50 153/64 O2 Sat by Pulse 95 97 Oximetry 08/14/18 02:09 Temperature Pulse Rate 97 H Pulse Rate [ Anterior Bilateral Throughout] Pulse Rate [ From Monitor] Respiratory Rate Respiratory Rate [Anterior Bilateral Throughout] Blood Pressure 153/64 O2 Sat by Pulse Oximetry General appearance: Present: no acute distress, well-nourished - EENT Eyes: PERRL, EOM intact ENT: hearing intact, clear oral mucosa Ears: bilateral: normal - Neck Neck: supple, normal ROM - Respiratory Respiratory effort: normal Respiratory: bilateral: CTA - Breasts Breasts: normal - Cardiovascular Rhythm: regular Heart Sounds: Present: S1 & S2. Absent: gallop, rub Extremities: pulses intact, No edema, normal color, Full ROM - Gastrointestinal General gastrointestinal: Present: soft, non-tender, non-distended, normal bowel sounds - Genitourinary Female genitourinary: normal - Integumentary Integumentary: clear, warm, dry - Musculoskeletal Musculoskeletal: 1, strength equal bilaterally - Neurologic Neurologic: moves all extremities - Psychiatric Psychiatric: memory intact, appropriate mood/affect, intact judgment & insight - Labs CBC & Chem 7: 08/11/18 04:11 08/14/18 04:32 Labs: Abnormal lab results 08/13/18 08/13/18 08/13/18 Range/Units 06:41 11:37 17:41 Chloride (98-107) mmol/L Carbon Dioxide (22-30) mmol/L BUN (7-17) mg/dL Creatinine (0.7-1.2) mg/dL Glucose (65-100) mg/dL POC Glucose 212 H 248 H 234 H (70-105) 08/13/18 08/14/18 Range/Units 23:56 04:32 Chloride 109.2 H (98-107) mmol/L Carbon Dioxide 21 L (22-30) mmol/L BUN 59 H (7-17) mg/dL Creatinine 1.4 H (0.7-1.2) mg/dL Glucose 181 H (65-100) mg/dL POC Glucose 168 H (70-105)
[2018-08-14] MEDS: PROTONIX IV SCH (09:19)
[2018-08-14] MEDS: NORVASC PO SCH (09:20)
[2018-08-14] MEDS: LANTUS SUB-Q SCH (09:25)
[2018-08-14] MEDS: DUONEB *Not for PRN Use IH SCH ×3 (09:26→20:12)
--- NOTE | 2018-08-14 12:11 | Progress Note ---
Assessment and Plan Impression: * Acute kidney injury secondary multifactorial etioloiges: prerenal azotemia, sepsis related ATN, contrast induced nephropathy * Stage IV adenocarcinoma of colon * s/p right hemicolectomy, ileocolic anastamosis * Sepsis * Intraabdominal abscess w/?perforation vs necrotic tumor * Hypernatermia * Hypertension Plan: * Renal function is better today, she is volume deplete * on tpn, may need more volume, follow up am lytes * Hypernatremia noted, gentle ivfs prn D5W * Replete K prn * Abx per ID * Transfuse pRBC per primary team * Consultants' recommendations reviewed * Avoid nephrotoxins * Dose medications for renal function Subjective Date of service: 08/14/18 Principal diagnosis: colon ca Interval history: resting in bed today Objective - Exam Narrative Exam: General appearance: well-developed, well-nourished EENT: ATNC Respiratory: Present: Decreased Breath Sounds Cardiology: regular, S1S2 Gastrointestinal: hypoactive bowel sounds Integumentary: warm and dry Neurologic: no focal deficit Psychiatric: cooperative - Vital Signs Vital signs: Vital Signs - 12hr 08/14/18 08/14/18 08/14/18 02:00 02:09 07:30 Temperature 97.4 F L Pulse Rate 89 97 H 85 Pulse Rate [ Anterior Bilateral Throughout] Pulse Rate [ Left Radial] Respiratory 20 Rate Respiratory Rate [Anterior Bilateral Throughout] Blood Pressure 153/64 153/64 170/80 O2 Sat by Pulse 97 Oximetry 08/14/18 08/14/18 08/14/18 07:31 08:00 09:20 Temperature 97.8 F Pulse Rate 85 96 H Pulse Rate [ 97 H Anterior Bilateral Throughout] Pulse Rate [ Left Radial] Respiratory 20 Rate Respiratory 16 Rate [Anterior Bilateral Throughout] Blood Pressure 170/80 160/64 O2 Sat by Pulse 95 Oximetry 08/14/18 08/14/18 09:27 10:00 Temperature Pulse Rate Pulse Rate [ 99 H Anterior Bilateral Throughout] Pulse Rate [ 96 H Left Radial] Respiratory 20 Rate Respiratory 16 Rate [Anterior Bilateral Throughout] Blood Pressure O2 Sat by Pulse 98 95 Oximetry - Lab 08/11/18 04:11 08/14/18 04:32 Most recent lab results Calcium 8.7 mg/dL (8.4-10.2) 08/14/18 04:32 Phosphorus 3.60 mg/dL (2.5-4.5) 08/14/18 04:32 Magnesium 2.00 mg/dL (1.7-2.3) 08/14/18 04:32 Medications & Allergies - Medications Allergies/Adverse Reactions: Allergies No Known Allergies Allergy (Unverified 07/18/18 20:42) Home Medications: Home Medications Medication Instructions Recorded Confirmed Last Taken Type Furosemide [Lasix] 20 mg PO DAILY 07/19/18 07/19/18 07/18/18 History Insulin Aspart [Novolog Flexpen] 100 unit SQ TID 07/19/18 07/19/18 07/18/18 History Losartan Potassium [Cozaar] 50 mg PO DAILY 07/19/18 07/19/18 07/18/18 History Metoprolol Xl [Metoprolol 25 mg PO QDAY 07/19/18 07/19/18 07/18/18 History SUCCINATE ER TAB] Naproxen 500 mg PO BID 07/19/18 07/19/18 07/18/18 History Ranitidine HCl [Acid Control] 150 mg PO BID 07/19/18 07/19/18 07/18/18 History Active Medications: Generic Name Dose Route Start Last Admin Trade Name Freq PRN Reason Stop Dose Admin Albuterol 2.5 mg 07/24/18 20:13 07/24/18 20:31 Proventil IH 2.5 mg Q4HRT PRN Administration Shortness Of Breath Albuterol/Ipratropium 1 ampul 07/25/18 14:00 08/14/18 09:26 Duoneb *Not For Prn Use* IH 1 ampul TIDRT TRINY Administration Amlodipine Besylate 10 mg 08/09/18 16:00 08/14/18 09:20 Norvasc PO 10 mg QDAY TRINY Administration Clonidine HCl 0.3 mg 07/25/18 10:00 08/08/18 10:02 Catapres-Tts Patch TD 0.3 mg Mo TRINY Administration Dextrose 50 ml 07/19/18 02:51 D50w (25gm) Syringe IV PRN PRN Hypoglycemia Hydralazine HCl 20 mg 08/09/18 14:00 08/14/18 07:30 Apresoline IV 20 mg Q6H TRINY Administration Amino Acids/Electrolytes/Dextrose 1,560 mls @ 65 mls/hr 08/13/18 20:00 08/13/18 20:57 Tpn Adult IV 08/14/18 19:59 65 mls/hr DAILY@2000 TRINY Administration Protocol Insulin Glargine 20 units 08/02/18 11:00 08/14/18 09:25 Lantus SUB-Q 20 units DAILY TRINY Administration Insulin Human Lispro 0 unit 08/12/18 12:00 08/14/18 11:38 Humalog SUB-Q 6 unit Q6HR TRINY Administration Protocol Labetalol HCl 10 mg 07/26/18 12:37 08/08/18 05:06 Normodyne IV 10 mg Q4H PRN Administration Blood Pressure Morphine Sulfate 2 mg 08/03/18 00:21 08/14/18 11:39 Morphine IV 2 mg Q3H PRN Administration Pain, Moderate (4-6) Multi-Ingred Cream/Lotion/Oil/Oint 1 applic 08/01/18 11:56 Artificial Tears Ophth Oint OU Q4HR PRN Dry Eye(s) Pantoprazole Sodium 40 mg 08/02/18 10:00 08/14/18 09:19 Protonix IV 40 mg QDAY TRINY Administration
--- NOTE | 2018-08-14 13:07 | Progress Note ---
Assessment and Plan /Bowel perforation with suspected Tumor Necrosis due to Stage IV Adenocarcinoma, - s/p surgery 08/01/18, intubated for surgery, s/p extubated 08/02/18: continue 02 support, still on TPN. TPN was started on 07/23/[address] Braden, General Surgeon. Now also started on diet, will f/u with GS if we could stop TPN. /Hypernatremia - resolved now, likely from dehydration /Hypertensive urgency, Bp controlled on the following: - catapress patch, norvasc, also use iv hydralazine and iv labetalol as needed /ARF, ATN suspected: Nephrology following, improved /Recurrent falls with episodes of hypoglycemia: hold DM medication(s), treated with dextrose, following accuchecks /Sepsis with perforated bowel from colon cancer s/p surgery, ID following, completed abx treatment - completed IV Cefepime and Flagyl x 15 days - then switched to IV zosyn 08/03/2018 end date 08/08/18, given worsening renal function and high risk of neurotoxicity from Cefepime in the setting of renal failure, elderly patient /Acute metabolic encephalopathy: due to hypoglycemia and sepsis, resolved /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: vascular input noted, no intervention needed at this time /IDDM: cont insulin coverage for now /DVT/GI prophylaxis: sq heparin, IV ppi full code Disposition: inpatient care, consult Case management unable to get LTACH vs SNF Brief History: The patient is an 87-year-old female with diabetes mellitus, congestive heart failure, HTN who presented to the emergency room with some altered mental status and having multiple falls. She also had some nausea and vomiting and complained of abdominal pain. In the emergency room, she underwent a CT of the abdomen and pelvis which was concerning for possible perforated appendicitis versus diverticulitis versus phlegmon. She was admitted with concerns for sepsis and started empirically on IV antibiotics. She was initially managed medically, then has surgery on 08/01/[address] Wooten with Exploratory laparotomy, lysis of extensive adhesion, right hemicolectomy with ileocolic anastomosis. Also noted A very large mass extending outside of the colon into the retroperitoneum in the area of the hepatic flexure. Hospitalist Physical Gen: WDWN, NAD, Awake, Alert, Orientated x 1 HEENT: NCAT, EOMI, PERRL, OP Clear Neck: supple, no adenopathy, no thyromegaly, no JVD CVS/Heart: RRR, normal S1S2, pulses present bilaterally Chest/Lungs: diminished bs bilateral, Symmetrical chest expansion, good air entry bilaterally GI/Abdomen: soft diffusely tender, dressing intact, good bowel sounds, no guarding or rebound /Bladder: no suprapubic tenderness, no CVA or paraspinal tenderness Extermity/Skin: no c/c/e, no obvious rash MSK: FROM x 4 Neuro: CN 2-12 grossly intact, no new focal deficits Psych: calm Subjective Date of service: 08/14/18 Principal diagnosis: colon ca Interval history: Pt seen and examined, started on diet, also on TPN c/o abdominal pain, family at bedside Objective - Constitutional Vitals: Vital Signs - 12hr 08/14/18 08/14/18 08/14/18 02:00 02:09 07:30 Temperature 97.4 F L Pulse Rate 89 97 H 85 Pulse Rate [ Anterior Bilateral Throughout] Pulse Rate [ Left Radial] Respiratory 20 Rate Respiratory Rate [Anterior Bilateral Throughout] Blood Pressure 153/64 153/64 170/80 O2 Sat by Pulse 97 Oximetry 08/14/18 08/14/18 08/14/18 07:31 08:00 09:20 Temperature 97.8 F Pulse Rate 85 96 H Pulse Rate [ 97 H Anterior Bilateral Throughout] Pulse Rate [ Left Radial] Respiratory 20 Rate Respiratory 16 Rate [Anterior Bilateral Throughout] Blood Pressure 170/80 160/64 O2 Sat by Pulse 95 Oximetry 08/14/18 08/14/18 09:27 10:00 Temperature Pulse Rate Pulse Rate [ 99 H Anterior Bilateral Throughout] Pulse Rate [ 96 H Left Radial] Respiratory 20 Rate Respiratory 16 Rate [Anterior Bilateral Throughout] Blood Pressure O2 Sat by Pulse 98 95 Oximetry - Labs CBC & Chem 7: 08/16/18 04:06 08/16/18 04:06 Labs: Abnormal lab results 08/13/18 08/13/18 08/14/18 Range/Units 17:41 23:56 04:32 Chloride 109.2 H (98-107) mmol/L Carbon Dioxide 21 L (22-30) mmol/L BUN 59 H (7-17) mg/dL Creatinine 1.4 H (0.7-1.2) mg/dL Glucose 181 H (65-100) mg/dL POC Glucose 234 H 168 H (70-105) 08/14/18 08/14/18 08/14/18 Range/Units 06:02 09:28 11:32 Chloride (98-107) mmol/L Carbon Dioxide (22-30) mmol/L BUN (7-17) mg/dL Creatinine (0.7-1.2) mg/dL Glucose (65-100) mg/dL POC Glucose 204 H 269 H 292 H (70-105)
--- NOTE | 2018-08-14 18:22 | Progress Note ---
Assessment and Plan Imp: 1. Colon cancer 2. Perforated viscus 3. Sepsis 4. Acute respiratory failure, hypoxia 5. Bibasilar atelectasis 6. SHREYAS 7. Hypernatremia Rec: 1. CXR findings likely reflect atelectasis due to hypoventilation in setting of abdominal pain/distension + bed-bound status/weakness; doubt pneumonia; would focus on incentive spirometry and mobilization w/ PT, etc. 2. Can continue the Duonebs 3. SCDs 4. BP control 5. Off IVFs per renal; still on TPN; monitor volume status 6. We will monitor with you; pulm-meza stable for d/c Plan of care reviewed with patient/family, they understand/agree Subjective Date of service: 08/14/18 Principal diagnosis: colon ca Interval history: No events. On 2L NC. Alert. No SOB or other complaints. Having BMs, tolerating PO. Active Medications Albuterol (Proventil) 2.5 mg IH Q4HRT PRN PRN Reason: Shortness Of Breath Last Admin: 07/24/18 20:31 Dose: 2.5 mg Documented by: Albuterol/Ipratropium (Duoneb *Not For Prn Use*) 1 ampul IH TIDRT [facility] Last Admin: 08/14/18 14:23 Dose: 1 ampul Documented by: Amlodipine Besylate (Norvasc) 10 mg PO QDAY [facility] Last Admin: 08/14/18 09:20 Dose: 10 mg Documented by: Clonidine HCl (Catapres-Tts Patch) 0.3 mg TD Mo [facility] Last Admin: 08/08/18 10:02 Dose: 0.3 mg Documented by: Dextrose (D50w (25gm) Syringe) 50 ml IV PRN PRN PRN Reason: Hypoglycemia Hydralazine HCl (Apresoline) 20 mg IV Q6H [facility] Last Admin: 08/14/18 13:20 Dose: 20 mg Documented by: Amino Acids/Electrolytes/Dextrose (Tpn Adult) 1,560 mls @ 65 mls/hr IV KORTNEY LY@1999 [facility]; Protocol Stop: 08/14/18 19:59 Last Admin: 08/13/18 20:57 Dose: 65 mls/hr Documented by: Amino Acids/Electrolytes/Dextrose (Tpn Adult) 1,560 mls @ 65 mls/hr IV DAILY@1999 [facility]; Protocol Stop: 08/15/18 19:59 Insulin Glargine (Lantus) 20 units SUB-Q DAILY [facility] Last Admin: 08/14/18 09:25 Dose: 20 units Documented by: Insulin Human Lispro (Humalog) 0 unit SUB-Q Q6HR [facility]; Protocol Last Admin: 08/14/18 17:43 Dose: 3 unit Documented by: Labetalol HCl (Normodyne) 10 mg IV Q4H PRN PRN Reason: Blood Pressure Last Admin: 08/08/18 05:06 Dose: 10 mg Documented by: Morphine Sulfate (Morphine) 2 mg IV Q3H PRN PRN Reason: Pain, Moderate (4-6) Last Admin: 08/14/18 17:03 Dose: 2 mg Documented by: Multi-Ingred Cream/Lotion/Oil/Oint (Artificial Tears Ophth Oint) 1 applic OU Q4HR PRN PRN Reason: Dry Eye(s) Pantoprazole Sodium (Protonix) 40 mg IV QDAY [facility] Last Admin: 08/14/18 09:19 Dose: 40 mg Documented by: Objective Vital Signs - 12hr 08/14/18 08/14/18 08/14/18 07:30 07:31 08:00 Temperature 97.8 F Pulse Rate 85 85 Pulse Rate [ 97 H Anterior Bilateral Throughout] Pulse Rate [ Left Radial] Respiratory 20 Rate Respiratory 16 Rate [Anterior Bilateral Throughout] Blood Pressure 170/80 170/80 O2 Sat by Pulse 95 Oximetry 08/14/18 08/14/18 08/14/18 09:20 09:27 10:00 Temperature Pulse Rate 96 H Pulse Rate [ 99 H Anterior Bilateral Throughout] Pulse Rate [ 96 H Left Radial] Respiratory 20 Rate Respiratory 16 Rate [Anterior Bilateral Throughout] Blood Pressure 160/64 O2 Sat by Pulse 98 95 Oximetry 08/14/18 08/14/18 08/14/18 13:20 13:36 14:00 Temperature 98.0 F Pulse Rate 100 H 97 H Pulse Rate [ 97 H Anterior Bilateral Throughout] Pulse Rate [ Left Radial] Respiratory 20 Rate Respiratory 19 Rate [Anterior Bilateral Throughout] Blood Pressure 167/69 136/52 O2 Sat by Pulse 97 Oximetry 08/14/18 14:23 Temperature Pulse Rate Pulse Rate [ 99 H Anterior Bilateral Throughout] Pulse Rate [ Left Radial] Respiratory Rate Respiratory 18 Rate [Anterior Bilateral Throughout] Blood Pressure O2 Sat by Pulse Oximetry Constitutional: no acute distress, alert Eyes: non-icteric Neck: supple Effort: normal Ascultation: Bilateral: clear Cardiovascular: regular rate and rhythm (no mrg) Gastrointestinal: normoactive bowel sounds, soft, non-distended Integumentary: normal Extremities: no cyanosis, no edema, pink and warm Neurologic: normal mental status, non-focal exam, pupils equal and round, CN II- XII normal Psychiatric: mood appropriate, affect normal CBC and BMP: 08/11/18 04:11 08/14/18 04:32 ABG, PT/INR, D-dimer: ABG POC ABG pH 7.409 (7.35-7.45) 08/02/18 09:56 POC ABG pCO2 38.5 (35-45) 08/02/18 09:56 POC ABG pO2 70 (80-105) L 08/02/18 09:56 POC ABG HCO3 24.3 08/02/18 09:56 POC ABG Total CO2 25 08/02/18 09:56 POC ABG O2 Sat 94 08/02/18 09:56 PT/INR, D-dimer PT 14.5 Sec. (12.2-14.9) 07/28/18 05:27 INR 1.09 (0.87-1.13) 07/28/18 05:27 Abnormal lab findings: Abnormal Labs 07/18/18 07/18/18 07/18/18 20:28 20:48 20:48 WBC 12.3 H RBC 3.47 L Hgb 9.1 L Hct 28.9 L MCH 26 L RDW 16.1 H Plt Count 473 H Lymph % (Auto) 5.4 L [place] % (Auto) Lymph # 0.7 L [place] # Seg Neutrophils % 86.5 H Seg Neuts % (Manual) Lymphocytes % (Manual) Monocytes % (Manual) Seg Neutrophils # 10.7 H Seg Neutrophils # Man Lymphocytes # (Manual) Monocytes # (Manual) APTT POC ABG pO2 Sodium Potassium Chloride Carbon Dioxide BUN Creatinine Glucose 108 H POC Glucose 109 H Calcium Phosphorus Magnesium Iron TIBC Alkaline Phosphatase C-Reactive Protein Total Protein Albumin 3.1 L Vitamin B12 Crossmatch 07/18/18 07/18/18 07/19/18 20:48 23:12 02:50 WBC RBC 3.35 L Hgb 9.0 L Hct 27.9 L MCH 27 L RDW 15.8 H Plt Count Lymph % (Auto) [place] % (Auto) Lymph # [place] # Seg Neutrophils % Seg Neuts % (Manual) Lymphocytes % (Manual) Monocytes % (Manual) Seg Neutrophils # Seg Neutrophils # Man Lymphocytes # (Manual) Monocytes # (Manual) APTT 23.2 L POC ABG pO2 Sodium Potassium Chloride Carbon Dioxide BUN Creatinine Glucose POC Glucose 106 H Calcium Phosphorus Magnesium Iron TIBC Alkaline Phosphatase C-Reactive Protein Total Protein Albumin Vitamin B12 Crossmatch 07/19/18 07/19/18 07/19/18 02:50 08:00 11:46 WBC RBC Hgb Hct MCH RDW Plt Count Lymph % (Auto) [place] % (Auto) Lymph # [place] # Seg Neutrophils % Seg Neuts % (Manual) Lymphocytes % (Manual) Monocytes % (Manual) Seg Neutrophils # Seg Neutrophils # Man Lymphocytes # (Manual) Monocytes # (Manual) APTT POC ABG pO2 Sodium 136 L Potassium Chloride Carbon Dioxide BUN Creatinine Glucose 105 H POC Glucose 131 H 152 H Calcium Phosphorus Magnesium Iron TIBC Alkaline Phosphatase C-Reactive Protein Total Protein Albumin Vitamin B12 Crossmatch 07/19/18 07/19/18 07/19/18 13:46 15:34 20:42 WBC RBC Hgb Hct MCH RDW Plt Count Lymph % (Auto) [place] % (Auto) Lymph # [place] # Seg Neutrophils % Seg Neuts % (Manual) Lymphocytes % (Manual) Monocytes % (Manual) Seg Neutrophils # Seg Neutrophils # Man Lymphocytes # (Manual) Monocytes # (Manual) APTT POC ABG pO2 Sodium Potassium Chloride Carbon Dioxide BUN Creatinine Glucose POC Glucose 152 H 182 H 187 H Calcium Phosphorus Magnesium Iron TIBC Alkaline Phosphatase C-Reactive Protein Total Protein Albumin Vitamin B12 Crossmatch 07/19/18 07/20/18 07/20/18 23:05 02:15 06:14 WBC RBC Hgb Hct MCH RDW Plt Count Lymph % (Auto) [place] % (Auto) Lymph # [place] # Seg Neutrophils % Seg Neuts % (Manual) Lymphocytes % (Manual) Monocytes % (Manual) Seg Neutrophils # Seg Neutrophils # Man Lymphocytes # (Manual) Monocytes # (Manual) APTT POC ABG pO2 Sodium Potassium Chloride Carbon Dioxide BUN Creatinine Glucose POC Glucose 133 H 154 H 137 H Calcium Phosphorus Magnesium Iron TIBC Alkaline Phosphatase C-Reactive Protein Total Protein Albumin Vitamin B12 Crossmatch 07/20/18 07/20/18 07/20/18 06:47 06:47 12:01 WBC 11.7 H RBC 3.51 L Hgb 9.2 L Hct 29.3 L MCH 26 L RDW 15.9 H Plt Count Lymph % (Auto) 12.0 L [place] % (Auto) Lymph # [place] # Seg Neutrophils % 80.8 H Seg Neuts % (Manual) Lymphocytes % (Manual) Monocytes % (Manual) Seg Neutrophils # 9.4 H Seg Neutrophils # Man Lymphocytes # (Manual) Monocytes # (Manual) APTT POC ABG pO2 Sodium Potassium Chloride Carbon Dioxide BUN Creatinine Glucose 126 H POC Glucose 157 H Calcium 8.3 L Phosphorus Magnesium Iron TIBC Alkaline Phosphatase C-Reactive Protein Total Protein Albumin 2.8 L Vitamin B12 Crossmatch 07/20/18 07/20/18 07/20/18 16:11 19:56 23:34 WBC RBC Hgb Hct MCH RDW Plt Count Lymph % (Auto) [place] % (Auto) Lymph # [place] # Seg Neutrophils % Seg Neuts % (Manual) Lymphocytes % (Manual) Monocytes % (Manual) Seg Neutrophils # Seg Neutrophils # Man Lymphocytes # (Manual) Monocytes # (Manual) APTT POC ABG pO2 Sodium Potassium Chloride Carbon Dioxide BUN Creatinine Glucose POC Glucose 155 H 158 H 149 H Calcium Phosphorus Magnesium Iron TIBC Alkaline Phosphatase C-Reactive Protein Total Protein Albumin Vitamin B12 Crossmatch 07/21/18 07/21/18 07/21/18 04:16 08:11 11:15 WBC RBC Hgb Hct MCH RDW Plt Count Lymph % (Auto) [place] % (Auto) Lymph # [place] # Seg Neutrophils % Seg Neuts % (Manual) Lymphocytes % (Manual) Monocytes % (Manual) Seg Neutrophils # Seg Neutrophils # Man Lymphocytes # (Manual) Monocytes # (Manual) APTT POC ABG pO2 Sodium Potassium Chloride Carbon Dioxide BUN Creatinine Glucose POC Glucose 127 H 142 H 159 H Calcium Phosphorus Magnesium Iron TIBC Alkaline Phosphatase C-Reactive Protein Total Protein Albumin Vitamin B12 Crossmatch 07/21/18 07/21/18 07/21/18 16:12 18:49 23:03 WBC RBC Hgb Hct MCH RDW Plt Count Lymph % (Auto) [place] % (Auto) Lymph # [place] # Seg Neutrophils % Seg Neuts % (Manual) Lymphocytes % (Manual) Monocytes % (Manual) Seg Neutrophils # Seg Neutrophils # Man Lymphocytes # (Manual) Monocytes # (Manual) APTT POC ABG pO2 Sodium Potassium Chloride Carbon Dioxide BUN Creatinine Glucose POC Glucose 134 H 113 H 120 H Calcium Phosphorus Magnesium Iron TIBC Alkaline Phosphatase C-Reactive Protein Total Protein Albumin Vitamin B12 Crossmatch 07/22/18 07/22/18 07/22/18 05:24 08:09 11:42 WBC RBC Hgb Hct MCH RDW Plt Count Lymph % (Auto) [place] % (Auto) Lymph # [place] # Seg Neutrophils % Seg Neuts % (Manual) Lymphocytes % (Manual) Monocytes % (Manual) Seg Neutrophils # Seg Neutrophils # Man Lymphocytes # (Manual) Monocytes # (Manual) APTT POC ABG pO2 Sodium Potassium Chloride Carbon Dioxide BUN Creatinine Glucose POC Glucose 126 H 112 H 143 H Calcium Phosphorus Magnesium Iron TIBC Alkaline Phosphatase C-Reactive Protein Total Protein Albumin Vitamin B12 Crossmatch 07/22/18 07/22/18 07/22/18 13:47 16:26 22:48 WBC RBC 3.16 L Hgb 8.3 L Hct 26.5 L MCH 26 L RDW 16.6 H Plt Count Lymph % (Auto) 12.0 L [place] % (Auto) Lymph # 1.1 L [place] # Seg Neutrophils % 79.9 H Seg Neuts % (Manual) Lymphocytes % (Manual) Monocytes % (Manual) Seg Neutrophils # Seg Neutrophils # Man Lymphocytes # (Manual) Monocytes # (Manual) APTT POC ABG pO2 Sodium Potassium Chloride Carbon Dioxide BUN Creatinine Glucose POC Glucose 132 H 118 H Calcium Phosphorus Magnesium Iron TIBC Alkaline Phosphatase C-Reactive Protein Total Protein Albumin Vitamin B12 Crossmatch 07/23/18 07/23/18 07/23/18 05:01 05:39 05:39 WBC RBC 3.04 L Hgb 8.3 L Hct 25.6 L MCH 27 L RDW 16.7 H Plt Count Lymph % (Auto) 13.1 L [place] % (Auto) 8.1 H Lymph # 1.0 L [place] # Seg Neutrophils % 77.0 H Seg Neuts % (Manual) Lymphocytes % (Manual) Monocytes % (Manual) Seg Neutrophils # Seg Neutrophils # Man Lymphocytes # (Manual) Monocytes # (Manual) APTT POC ABG pO2 Sodium Potassium Chloride Carbon Dioxide BUN 22 H Creatinine Glucose 224 H POC Glucose 197 H Calcium 8.3 L Phosphorus 1.90 L Magnesium 1.60 L Iron TIBC Alkaline Phosphatase C-Reactive Protein Total Protein Albumin 2.8 L Vitamin B12 Crossmatch 07/23/18 07/23/18 07/23/18 07:37 12:10 15:41 WBC RBC Hgb Hct MCH RDW Plt Count Lymph % (Auto) [place] % (Auto) Lymph # [place] # Seg Neutrophils % Seg Neuts % (Manual) Lymphocytes % (Manual) Monocytes % (Manual) Seg Neutrophils # Seg Neutrophils # Man Lymphocytes # (Manual) Monocytes # (Manual) APTT POC ABG pO2 Sodium Potassium Chloride Carbon Dioxide BUN Creatinine Glucose POC Glucose 192 H 191 H 187 H Calcium Phosphorus Magnesium Iron TIBC Alkaline Phosphatase C-Reactive Protein Total Protein Albumin Vitamin B12 Crossmatch 07/23/18 07/24/18 07/24/18 23:12 03:12 04:34 WBC RBC Hgb Hct MCH RDW Plt Count Lymph % (Auto) [place] % (Auto) Lymph # [place] # Seg Neutrophils % Seg Neuts % (Manual) Lymphocytes % (Manual) Monocytes % (Manual) Seg Neutrophils # Seg Neutrophils # Man Lymphocytes # (Manual) Monocytes # (Manual) APTT POC ABG pO2 Sodium Potassium Chloride Carbon Dioxide BUN 25 H Creatinine Glucose 191 H POC Glucose 231 H 224 H Calcium 8.3 L Phosphorus 1.60 L Magnesium 1.60 L Iron TIBC Alkaline Phosphatase C-Reactive Protein Total Protein Albumin Vitamin B12 Crossmatch 07/24/18 07/24/18 07/24/18 08:21 12:12 16:55 WBC RBC Hgb Hct MCH RDW Plt Count Lymph % (Auto) [place] % (Auto) Lymph # [place] # Seg Neutrophils % Seg Neuts % (Manual) Lymphocytes % (Manual) Monocytes % (Manual) Seg Neutrophils # Seg Neutrophils # Man Lymphocytes # (Manual) Monocytes # (Manual) APTT POC ABG pO2 Sodium Potassium Chloride Carbon Dioxide BUN Creatinine Glucose POC Glucose 187 H 167 H 192 H Calcium Phosphorus Magnesium Iron TIBC Alkaline Phosphatase C-Reactive Protein Total Protein Albumin Vitamin B12 Crossmatch 07/24/18 07/24/18 07/25/18 20:30 23:38 02:44 WBC RBC Hgb Hct MCH RDW Plt Count Lymph % (Auto) [place] % (Auto) Lymph # [place] # Seg Neutrophils % Seg Neuts % (Manual) Lymphocytes % (Manual) Monocytes % (Manual) Seg Neutrophils # Seg Neutrophils # Man Lymphocytes # (Manual) Monocytes # (Manual) APTT POC ABG pO2 Sodium Potassium Chloride Carbon Dioxide BUN Creatinine Glucose POC Glucose 192 H 181 H 196 H Calcium Phosphorus Magnesium Iron TIBC Alkaline Phosphatase C-Reactive Protein Total Protein Albumin Vitamin B12 Crossmatch 07/25/18 07/25/18 07/25/18 03:58 03:58 06:35 WBC RBC Hgb Hct MCH RDW Plt Count Lymph % (Auto) [place] % (Auto) Lymph # [place] # Seg Neutrophils % Seg Neuts % (Manual) Lymphocytes % (Manual) Monocytes % (Manual) Seg Neutrophils # Seg Neutrophils # Man Lymphocytes # (Manual) Monocytes # (Manual) APTT POC ABG pO2 Sodium Potassium Chloride Carbon Dioxide BUN 23 H Creatinine Glucose 197 H POC Glucose 203 H Calcium Phosphorus 2.30 L D Magnesium Iron TIBC Alkaline Phosphatase C-Reactive Protein 4.30 H Total Protein Albumin Vitamin B12 Crossmatch 07/25/18 07/25/18 07/25/18 12:04 16:33 19:50 WBC RBC Hgb Hct MCH RDW Plt Count Lymph % (Auto) [place] % (Auto) Lymph # [place] # Seg Neutrophils % Seg Neuts % (Manual) Lymphocytes % (Manual) Monocytes % (Manual) Seg Neutrophils # Seg Neutrophils # Man Lymphocytes # (Manual) Monocytes # (Manual) APTT POC ABG pO2 Sodium Potassium Chloride Carbon Dioxide BUN Creatinine Glucose POC Glucose 153 H 204 H 213 H Calcium Phosphorus Magnesium Iron TIBC Alkaline Phosphatase C-Reactive Protein Total Protein Albumin Vitamin B12 Crossmatch 07/25/18 07/26/18 07/26/18 22:52 02:38 04:13 WBC RBC Hgb Hct MCH RDW Plt Count Lymph % (Auto) [place] % (Auto) Lymph # [place] # Seg Neutrophils % Seg Neuts % (Manual) Lymphocytes % (Manual) Monocytes % (Manual) Seg Neutrophils # Seg Neutrophils # Man Lymphocytes # (Manual) Monocytes # (Manual) APTT POC ABG pO2 Sodium Potassium Chloride Carbon Dioxide BUN 22 H Creatinine Glucose 180 H POC Glucose 182 H 169 H Calcium 8.3 L Phosphorus Magnesium Iron TIBC Alkaline Phosphatase C-Reactive Protein Total Protein Albumin Vitamin B12 Crossmatch 07/26/18 07/26/18 07/27/18 06:37 22:45 02:44 WBC RBC Hgb Hct MCH RDW Plt Count Lymph % (Auto) [place] % (Auto) Lymph # [place] # Seg Neutrophils % Seg Neuts % (Manual) Lymphocytes % (Manual) Monocytes % (Manual) Seg Neutrophils # Seg Neutrophils # Man Lymphocytes # (Manual) Monocytes # (Manual) APTT POC ABG pO2 Sodium Potassium Chloride Carbon Dioxide BUN 24 H Creatinine Glucose 195 H POC Glucose 156 H 237 H Calcium Phosphorus Magnesium Iron TIBC Alkaline Phosphatase C-Reactive Protein Total Protein Albumin Vitamin B12 Crossmatch 07/27/18 07/27/18 07/27/18 02:51 06:27 10:45 WBC RBC Hgb Hct MCH RDW Plt Count Lymph % (Auto) [place] % (Auto) Lymph # [place] # Seg Neutrophils % Seg Neuts % (Manual) Lymphocytes % (Manual) Monocytes % (Manual) Seg Neutrophils # Seg Neutrophils # Man Lymphocytes # (Manual) Monocytes # (Manual) APTT POC ABG pO2 Sodium Potassium Chloride Carbon Dioxide BUN Creatinine Glucose POC Glucose 166 H 212 H 177 H Calcium Phosphorus Magnesium Iron TIBC Alkaline Phosphatase C-Reactive Protein Total Protein Albumin Vitamin B12 Crossmatch 07/27/18 07/28/18 07/28/18 16:14 00:12 05:06 WBC RBC Hgb Hct MCH RDW Plt Count Lymph % (Auto) [place] % (Auto) Lymph # [place] # Seg Neutrophils % Seg Neuts % (Manual) Lymphocytes % (Manual) Monocytes % (Manual) Seg Neutrophils # Seg Neutrophils # Man Lymphocytes # (Manual) Monocytes # (Manual) APTT POC ABG pO2 Sodium Potassium Chloride Carbon Dioxide BUN Creatinine Glucose POC Glucose 225 H 220 H 214 H Calcium Phosphorus Magnesium Iron TIBC Alkaline Phosphatase C-Reactive Protein Total Protein Albumin Vitamin B12 Crossmatch 07/28/18 07/28/18 07/28/18 05:27 08:09 11:05 WBC RBC Hgb Hct MCH RDW Plt Count Lymph % (Auto) [place] % (Auto) Lymph # [place] # Seg Neutrophils % Seg Neuts % (Manual) Lymphocytes % (Manual) Monocytes % (Manual) Seg Neutrophils # Seg Neutrophils # Man Lymphocytes # (Manual) Monocytes # (Manual) APTT POC ABG pO2 Sodium Potassium Chloride Carbon Dioxide BUN 25 H Creatinine 0.6 L Glucose 213 H POC Glucose 228 H 258 H Calcium Phosphorus Magnesium Iron TIBC Alkaline Phosphatase C-Reactive Protein Total Protein Albumin Vitamin B12 Crossmatch 07/28/18 07/28/18 07/28/18 12:19 17:40 17:40 WBC RBC 2.87 L Hgb 7.7 L Hct 24.9 L MCH 27 L RDW 18.0 H Plt Count Lymph % (Auto) [place] % (Auto) Lymph # [place] # Seg Neutrophils % Seg Neuts % (Manual) Lymphocytes % (Manual) Monocytes % (Manual) Seg Neutrophils # Seg Neutrophils # Man Lymphocytes # (Manual) Monocytes # (Manual) APTT POC ABG pO2 Sodium Potassium Chloride Carbon Dioxide BUN Creatinine Glucose POC Glucose 209 H Calcium Phosphorus Magnesium Iron TIBC Alkaline Phosphatase C-Reactive Protein Total Protein Albumin Vitamin B12 Crossmatch See Detail 07/28/18 07/28/18 07/29/18 20:00 23:48 02:29 WBC RBC Hgb Hct MCH RDW Plt Count Lymph % (Auto) [place] % (Auto) Lymph # [place] # Seg Neutrophils % Seg Neuts % (Manual) Lymphocytes % (Manual) Monocytes % (Manual) Seg Neutrophils # Seg Neutrophils # Man Lymphocytes # (Manual) Monocytes # (Manual) APTT POC ABG pO2 Sodium Potassium Chloride Carbon Dioxide BUN Creatinine Glucose POC Glucose 192 H 211 H 217 H Calcium Phosphorus Magnesium Iron TIBC Alkaline Phosphatase C-Reactive Protein Total Protein Albumin Vitamin B12 Crossmatch 07/29/18 07/29/18 07/29/18 05:26 05:26 11:33 WBC RBC 3.20 L Hgb 8.5 L Hct 26.8 L MCH 27 L RDW 17.5 H Plt Count Lymph % (Auto) [place] % (Auto) 10.8 H Lymph # [place] # 1.2 H Seg Neutrophils % 70.8 H Seg Neuts % (Manual) Lymphocytes % (Manual) Monocytes % (Manual) Seg Neutrophils # Seg Neutrophils # Man Lymphocytes # (Manual) Monocytes # (Manual) APTT POC ABG pO2 Sodium Potassium 5.3 H Chloride Carbon Dioxide BUN 25 H Creatinine 0.6 L Glucose 227 H POC Glucose 202 H Calcium Phosphorus Magnesium Iron TIBC Alkaline Phosphatase C-Reactive Protein Total Protein Albumin Vitamin B12 Crossmatch 07/29/18 07/29/18 07/30/18 18:35 23:01 04:27 WBC RBC Hgb Hct MCH RDW Plt Count Lymph % (Auto) [place] % (Auto) Lymph # [place] # Seg Neutrophils % Seg Neuts % (Manual) Lymphocytes % (Manual) Monocytes % (Manual) Seg Neutrophils # Seg Neutrophils # Man Lymphocytes # (Manual) Monocytes # (Manual) APTT POC ABG pO2 Sodium Potassium Chloride Carbon Dioxide BUN Creatinine Glucose POC Glucose 194 H 218 H 176 H Calcium Phosphorus Magnesium Iron TIBC Alkaline Phosphatase C-Reactive Protein Total Protein Albumin Vitamin B12 Crossmatch 07/30/18 07/30/18 07/30/18 10:12 11:00 11:00 WBC RBC Hgb Hct MCH RDW 17.9 H Plt Count Lymph % (Auto) 12.3 L [place] % (Auto) 10.2 H Lymph # [place] # 1.0 H Seg Neutrophils % 75.4 H Seg Neuts % (Manual) Lymphocytes % (Manual) Monocytes % (Manual) Seg Neutrophils # Seg Neutrophils # Man Lymphocytes # (Manual) Monocytes # (Manual) APTT POC ABG pO2 Sodium Potassium Chloride Carbon Dioxide BUN 22 H Creatinine Glucose 269 H POC Glucose 265 H Calcium Phosphorus Magnesium Iron TIBC Alkaline Phosphatase C-Reactive Protein Total Protein Albumin Vitamin B12 Crossmatch 07/30/18 07/30/18 07/30/18 15:11 17:21 21:47 WBC RBC Hgb Hct MCH RDW Plt Count Lymph % (Auto) [place] % (Auto) Lymph # [place] # Seg Neutrophils % Seg Neuts % (Manual) Lymphocytes % (Manual) Monocytes % (Manual) Seg Neutrophils # Seg Neutrophils # Man Lymphocytes # (Manual) Monocytes # (Manual) APTT POC ABG pO2 Sodium Potassium Chloride Carbon Dioxide BUN Creatinine Glucose POC Glucose 208 H 177 H 146 H Calcium Phosphorus Magnesium Iron TIBC Alkaline Phosphatase C-Reactive Protein Total Protein Albumin Vitamin B12 Crossmatch 07/31/18 07/31/18 07/31/18 02:13 03:56 10:15 WBC RBC Hgb Hct MCH RDW Plt Count Lymph % (Auto) [place] % (Auto) Lymph # [place] # Seg Neutrophils % Seg Neuts % (Manual) Lymphocytes % (Manual) Monocytes % (Manual) Seg Neutrophils # Seg Neutrophils # Man Lymphocytes # (Manual) Monocytes # (Manual) APTT POC ABG pO2 Sodium Potassium Chloride Carbon Dioxide BUN 26 H Creatinine 0.6 L Glucose 201 H POC Glucose 208 H 216 H Calcium Phosphorus Magnesium Iron TIBC Alkaline Phosphatase C-Reactive Protein Total Protein Albumin Vitamin B12 Crossmatch 07/31/18 07/31/18 08/01/18 15:42 22:34 03:09 WBC RBC Hgb Hct MCH RDW Plt Count Lymph % (Auto) [place] % (Auto) Lymph # [place] # Seg Neutrophils % Seg Neuts % (Manual) Lymphocytes % (Manual) Monocytes % (Manual) Seg Neutrophils # Seg Neutrophils # Man Lymphocytes # (Manual) Monocytes # (Manual) APTT POC ABG pO2 Sodium Potassium Chloride Carbon Dioxide BUN Creatinine Glucose POC Glucose 205 H 236 H 253 H Calcium Phosphorus Magnesium Iron TIBC Alkaline Phosphatase C-Reactive Protein Total Protein Albumin Vitamin B12 Crossmatch 08/01/18 08/01/18 08/01/18 04:19 06:14 07:18 WBC RBC Hgb Hct MCH RDW Plt Count Lymph % (Auto) [place] % (Auto) Lymph # [place] # Seg Neutrophils % Seg Neuts % (Manual) Lymphocytes % (Manual) Monocytes % (Manual) Seg Neutrophils # Seg Neutrophils # Man Lymphocytes # (Manual) Monocytes # (Manual) APTT POC ABG pO2 Sodium Potassium 3.3 L Chloride Carbon Dioxide BUN 26 H Creatinine 0.5 L Glucose 238 H POC Glucose 257 H Calcium 7.1 L D Phosphorus Magnesium Iron TIBC Alkaline Phosphatase C-Reactive Protein Total Protein Albumin Vitamin B12 Crossmatch See Detail 08/01/18 08/01/18 08/01/18 11:41 12:13 16:28 WBC RBC Hgb Hct MCH RDW Plt Count Lymph % (Auto) [place] % (Auto) Lymph # [place] # Seg Neutrophils % Seg Neuts % (Manual) Lymphocytes % (Manual) Monocytes % (Manual) Seg Neutrophils # Seg Neutrophils # Man Lymphocytes # (Manual) Monocytes # (Manual) APTT POC ABG pO2 339 H Sodium Potassium Chloride Carbon Dioxide BUN Creatinine Glucose POC Glucose 184 H 305 H Calcium Phosphorus Magnesium Iron TIBC Alkaline Phosphatase C-Reactive Protein Total Protein Albumin Vitamin B12 Crossmatch 08/01/18 08/01/18 08/02/18 18:25 21:09 02:01 WBC RBC Hgb Hct MCH RDW Plt Count Lymph % (Auto) [place] % (Auto) Lymph # [place] # Seg Neutrophils % Seg Neuts % (Manual) Lymphocytes % (Manual) Monocytes % (Manual) Seg Neutrophils # Seg Neutrophils # Man Lymphocytes # (Manual) Monocytes # (Manual) APTT POC ABG pO2 Sodium Potassium Chloride Carbon Dioxide BUN Creatinine Glucose POC Glucose 338 H 328 H 350 H Calcium Phosphorus Magnesium Iron TIBC Alkaline Phosphatase C-Reactive Protein Total Protein Albumin Vitamin B12 Crossmatch 08/02/18 08/02/18 08/02/18 04:26 04:26 05:47 WBC 20.9 H RBC Hgb Hct MCH RDW 20.1 H Plt Count Lymph % (Auto) [place] % (Auto) Lymph # [place] # Seg Neutrophils % Seg Neuts % (Manual) 90.0 H Lymphocytes % (Manual) 7.0 L Monocytes % (Manual) Seg Neutrophils # Seg Neutrophils # Man 18.8 H Lymphocytes # (Manual) Monocytes # (Manual) APTT POC ABG pO2 Sodium 133 L Potassium Chloride 97.5 L Carbon Dioxide BUN 48 H Creatinine Glucose 347 H POC Glucose 351 H Calcium 7.8 L Phosphorus Magnesium Iron TIBC Alkaline Phosphatase C-Reactive Protein Total Protein 5.4 L Albumin 2.2 L Vitamin B12 Crossmatch 08/02/18 08/02/18 08/02/18 05:52 09:56 10:02 WBC RBC Hgb Hct MCH RDW Plt Count Lymph % (Auto) [place] % (Auto) Lymph # [place] # Seg Neutrophils % Seg Neuts % (Manual) Lymphocytes % (Manual) Monocytes % (Manual) Seg Neutrophils # Seg Neutrophils # Man Lymphocytes # (Manual) Monocytes # (Manual) APTT POC ABG pO2 74 L 70 L Sodium Potassium Chloride Carbon Dioxide BUN Creatinine Glucose POC Glucose 351 H Calcium Phosphorus Magnesium Iron TIBC Alkaline Phosphatase C-Reactive Protein Total Protein Albumin Vitamin B12 Crossmatch 08/02/18 08/02/18 08/03/18 16:34 22:28 03:13 WBC RBC Hgb Hct MCH RDW Plt Count Lymph % (Auto) [place] % (Auto) Lymph # [place] # Seg Neutrophils % Seg Neuts % (Manual) Lymphocytes % (Manual) Monocytes % (Manual) Seg Neutrophils # Seg Neutrophils # Man Lymphocytes # (Manual) Monocytes # (Manual) APTT POC ABG pO2 Sodium Potassium Chloride Carbon Dioxide BUN Creatinine Glucose POC Glucose 250 H 175 H 189 H Calcium Phosphorus Magnesium Iron TIBC Alkaline Phosphatase C-Reactive Protein Total Protein Albumin Vitamin B12 Crossmatch 08/03/18 08/03/18 08/03/18 04:42 04:42 04:42 WBC 16.5 H RBC 3.43 L Hgb 9.6 L Hct MCH RDW 20.2 H Plt Count Lymph % (Auto) 7.9 L [place] % (Auto) 10.8 H Lymph # [place] # 1.8 H Seg Neutrophils % 80.5 H Seg Neuts % (Manual) Lymphocytes % (Manual) Monocytes % (Manual) Seg Neutrophils # 13.3 H Seg Neutrophils # Man Lymphocytes # (Manual) Monocytes # (Manual) APTT POC ABG pO2 Sodium Potassium Chloride Carbon Dioxide BUN 69 H Creatinine 2.0 H D Glucose 163 H POC Glucose Calcium 7.9 L Phosphorus 6.80 H D Magnesium 2.40 H Iron TIBC Alkaline Phosphatase C-Reactive Protein Total Protein 5.5 L Albumin 2.5 L Vitamin B12 Crossmatch 08/03/18 08/03/18 08/03/18 06:21 08:34 10:16 WBC RBC Hgb Hct MCH RDW Plt Count Lymph % (Auto) [place] % (Auto) Lymph # [place] # Seg Neutrophils % Seg Neuts % (Manual) Lymphocytes % (Manual) Monocytes % (Manual) Seg Neutrophils # Seg Neutrophils # Man Lymphocytes # (Manual) Monocytes # (Manual) APTT POC ABG pO2 Sodium Potassium Chloride Carbon Dioxide BUN Creatinine Glucose POC Glucose 163 H 129 H 134 H Calcium Phosphorus Magnesium Iron TIBC Alkaline Phosphatase C-Reactive Protein Total Protein Albumin Vitamin B12 Crossmatch 08/03/18 08/03/18 08/04/18 14:18 21:44 00:19 WBC RBC Hgb Hct MCH RDW Plt Count Lymph % (Auto) [place] % (Auto) Lymph # [place] # Seg Neutrophils % Seg Neuts % (Manual) Lymphocytes % (Manual) Monocytes % (Manual) Seg Neutrophils # Seg Neutrophils # Man Lymphocytes # (Manual) Monocytes # (Manual) APTT POC ABG pO2 Sodium Potassium Chloride Carbon Dioxide BUN Creatinine Glucose POC Glucose 199 H 189 H 162 H Calcium Phosphorus Magnesium Iron TIBC Alkaline Phosphatase C-Reactive Protein Total Protein Albumin Vitamin B12 Crossmatch 08/04/18 08/04/18 08/04/18 04:07 04:15 04:15 WBC 11.1 H RBC 2.93 L Hgb 8.5 L Hct 25.7 L MCH RDW 20.5 H Plt Count Lymph % (Auto) 7.7 L [place] % (Auto) 10.3 H Lymph # 0.9 L [place] # 1.1 H Seg Neutrophils % 80.6 H Seg Neuts % (Manual) Lymphocytes % (Manual) Monocytes % (Manual) Seg Neutrophils # 8.9 H Seg Neutrophils # Man Lymphocytes # (Manual) Monocytes # (Manual) APTT POC ABG pO2 Sodium Potassium Chloride Carbon Dioxide BUN 89 H Creatinine 2.3 H Glucose 196 H POC Glucose 211 H Calcium 7.7 L Phosphorus 6.60 H Magnesium 2.50 H Iron TIBC Alkaline Phosphatase C-Reactive Protein Total Protein Albumin Vitamin B12 Crossmatch 08/04/18 08/04/18 08/04/18 07:56 10:17 14:06 WBC RBC Hgb Hct MCH RDW Plt Count Lymph % (Auto) [place] % (Auto) Lymph # [place] # Seg Neutrophils % Seg Neuts % (Manual) Lymphocytes % (Manual) Monocytes % (Manual) Seg Neutrophils # Seg Neutrophils # Man Lymphocytes # (Manual) Monocytes # (Manual) APTT POC ABG pO2 Sodium Potassium Chloride Carbon Dioxide BUN Creatinine Glucose POC Glucose 229 H 221 H 182 H Calcium Phosphorus Magnesium Iron TIBC Alkaline Phosphatase C-Reactive Protein Total Protein Albumin Vitamin B12 Crossmatch 08/04/18 08/05/18 08/05/18 20:10 01:26 05:23 WBC RBC Hgb Hct MCH RDW Plt Count Lymph % (Auto) [place] % (Auto) Lymph # [place] # Seg Neutrophils % Seg Neuts % (Manual) Lymphocytes % (Manual) Monocytes % (Manual) Seg Neutrophils # Seg Neutrophils # Man Lymphocytes # (Manual) Monocytes # (Manual) APTT POC ABG pO2 Sodium 147 H Potassium Chloride 111.9 H Carbon Dioxide BUN 94 H Creatinine 2.1 H Glucose 158 H POC Glucose 201 H 170 H Calcium 7.8 L Phosphorus Magnesium 2.40 H Iron TIBC Alkaline Phosphatase C-Reactive Protein Total Protein Albumin Vitamin B12 Crossmatch 08/05/18 08/05/18 08/05/18 05:23 05:42 08:21 WBC RBC 2.96 L Hgb 8.5 L Hct 26.0 L MCH RDW 19.9 H Plt Count Lymph % (Auto) [place] % (Auto) Lymph # [place] # Seg Neutrophils % Seg Neuts % (Manual) 78.0 H Lymphocytes % (Manual) 11.0 L Monocytes % (Manual) 10.0 H Seg Neutrophils # Seg Neutrophils # Man Lymphocytes # (Manual) 1.0 L Monocytes # (Manual) 0.9 H APTT POC ABG pO2 Sodium Potassium Chloride Carbon Dioxide BUN Creatinine Glucose POC Glucose 166 H 178 H Calcium Phosphorus Magnesium Iron TIBC Alkaline Phosphatase C-Reactive Protein Total Protein Albumin Vitamin B12 Crossmatch 08/05/18 08/05/18 08/05/18 11:11 15:53 20:15 WBC RBC Hgb Hct MCH RDW Plt Count Lymph % (Auto) [place] % (Auto) Lymph # [place] # Seg Neutrophils % Seg Neuts % (Manual) Lymphocytes % (Manual) Monocytes % (Manual) Seg Neutrophils # Seg Neutrophils # Man Lymphocytes # (Manual) Monocytes # (Manual) APTT POC ABG pO2 Sodium Potassium Chloride Carbon Dioxide BUN Creatinine Glucose POC Glucose 200 H 157 H 194 H Calcium Phosphorus Magnesium Iron TIBC Alkaline Phosphatase C-Reactive Protein Total Protein Albumin Vitamin B12 Crossmatch 08/05/18 08/06/18 08/06/18 22:32 04:37 04:41 WBC RBC Hgb Hct MCH RDW Plt Count Lymph % (Auto) [place] % (Auto) Lymph # [place] # Seg Neutrophils % Seg Neuts % (Manual) Lymphocytes % (Manual) Monocytes % (Manual) Seg Neutrophils # Seg Neutrophils # Man Lymphocytes # (Manual) Monocytes # (Manual) APTT POC ABG pO2 Sodium 150 H Potassium Chloride 114.5 H Carbon Dioxide BUN 89 H Creatinine 1.9 H Glucose 196 H POC Glucose 209 H 207 H Calcium 8.3 L Phosphorus Magnesium Iron TIBC Alkaline Phosphatase C-Reactive Protein Total Protein Albumin Vitamin B12 Crossmatch 08/06/18 08/06/18 08/06/18 04:41 07:42 11:59 WBC RBC 3.09 L Hgb 8.7 L Hct 26.9 L MCH RDW 19.7 H Plt Count Lymph % (Auto) [place] % (Auto) Lymph # [place] # Seg Neutrophils % Seg Neuts % (Manual) 81.0 H Lymphocytes % (Manual) 12.0 L Monocytes % (Manual) Seg Neutrophils # Seg Neutrophils # Man Lymphocytes # (Manual) 0.9 L Monocytes # (Manual) APTT POC ABG pO2 Sodium Potassium Chloride Carbon Dioxide BUN Creatinine Glucose POC Glucose 178 H 195 H Calcium Phosphorus Magnesium Iron TIBC Alkaline Phosphatase C-Reactive Protein Total Protein Albumin Vitamin B12 Crossmatch 08/06/18 08/06/18 08/07/18 14:30 21:41 02:30 WBC RBC Hgb Hct MCH RDW Plt Count Lymph % (Auto) [place] % (Auto) Lymph # [place] # Seg Neutrophils % Seg Neuts % (Manual) Lymphocytes % (Manual) Monocytes % (Manual) Seg Neutrophils # Seg Neutrophils # Man Lymphocytes # (Manual) Monocytes # (Manual) APTT POC ABG pO2 Sodium Potassium Chloride Carbon Dioxide BUN Creatinine Glucose POC Glucose 184 H 181 H 202 H Calcium Phosphorus Magnesium Iron TIBC Alkaline Phosphatase C-Reactive Protein Total Protein Albumin Vitamin B12 Crossmatch 08/07/18 08/07/18 08/07/18 04:00 04:00 04:00 WBC RBC Hgb Hct MCH RDW 20.0 H Plt Count Lymph % (Auto) [place] % (Auto) Lymph # [place] # Seg Neutrophils % Seg Neuts % (Manual) 78.0 H Lymphocytes % (Manual) 10.0 L Monocytes % (Manual) Seg Neutrophils # Seg Neutrophils # Man Lymphocytes # (Manual) 0.9 L Monocytes # (Manual) APTT POC ABG pO2 Sodium 152 H Potassium Chloride 113.2 H Carbon Dioxide BUN 81 H Creatinine 1.7 H Glucose 203 H POC Glucose Calcium Phosphorus Magnesium Iron 17 L TIBC 122 L Alkaline Phosphatase C-Reactive Protein Total Protein Albumin 2.3 L Vitamin B12 1012 H Crossmatch 08/07/18 08/07/18 08/07/18 06:29 07:19 11:00 WBC RBC Hgb Hct MCH RDW Plt Count Lymph % (Auto) [place] % (Auto) Lymph # [place] # Seg Neutrophils % Seg Neuts % (Manual) Lymphocytes % (Manual) Monocytes % (Manual) Seg Neutrophils # Seg Neutrophils # Man Lymphocytes # (Manual) Monocytes # (Manual) APTT POC ABG pO2 Sodium Potassium Chloride Carbon Dioxide BUN Creatinine Glucose POC Glucose 226 H 240 H 174 H Calcium Phosphorus Magnesium Iron TIBC Alkaline Phosphatase C-Reactive Protein Total Protein Albumin Vitamin B12 Crossmatch 08/07/18 08/07/18 08/08/18 15:43 18:09 02:13 WBC RBC Hgb Hct MCH RDW Plt Count Lymph % (Auto) [place] % (Auto) Lymph # [place] # Seg Neutrophils % Seg Neuts % (Manual) Lymphocytes % (Manual) Monocytes % (Manual) Seg Neutrophils # Seg Neutrophils # Man Lymphocytes # (Manual) Monocytes # (Manual) APTT POC ABG pO2 Sodium Potassium Chloride Carbon Dioxide BUN Creatinine Glucose POC Glucose 201 H 210 H 229 H Calcium Phosphorus Magnesium Iron TIBC Alkaline Phosphatase C-Reactive Protein Total Protein Albumin Vitamin B12 Crossmatch 08/08/18 08/08/18 08/08/18 08:00 10:42 14:34 WBC RBC Hgb Hct MCH RDW Plt Count Lymph % (Auto) [place] % (Auto) Lymph # [place] # Seg Neutrophils % Seg Neuts % (Manual) Lymphocytes % (Manual) Monocytes % (Manual) Seg Neutrophils # Seg Neutrophils # Man Lymphocytes # (Manual) Monocytes # (Manual) APTT POC ABG pO2 Sodium Potassium Chloride Carbon Dioxide BUN Creatinine Glucose POC Glucose 254 H 186 H 171 H Calcium Phosphorus Magnesium Iron TIBC Alkaline Phosphatase C-Reactive Protein Total Protein Albumin Vitamin B12 Crossmatch 08/08/18 08/08/18 08/08/18 19:59 23:04 Unknown WBC RBC Hgb Hct MCH RDW Plt Count Lymph % (Auto) [place] % (Auto) Lymph # [place] # Seg Neutrophils % Seg Neuts % (Manual) Lymphocytes % (Manual) Monocytes % (Manual) Seg Neutrophils # Seg Neutrophils # Man Lymphocytes # (Manual) Monocytes # (Manual) APTT POC ABG pO2 Sodium 153 H Potassium Chloride 115.1 H Carbon Dioxide BUN 74 H Creatinine 1.4 H Glucose 255 H POC Glucose 203 H 233 H Calcium Phosphorus 2.40 L Magnesium Iron TIBC Alkaline Phosphatase C-Reactive Protein Total Protein Albumin Vitamin B12 Crossmatch 08/09/18 08/09/18 08/09/18 02:27 05:30 05:30 WBC RBC 3.31 L Hgb 9.6 L Hct 29.0 L MCH RDW 19.6 H Plt Count Lymph % (Auto) [place] % (Auto) Lymph # [place] # Seg Neutrophils % Seg Neuts % (Manual) Lymphocytes % (Manual) Monocytes % (Manual) Seg Neutrophils # Seg Neutrophils # Man Lymphocytes # (Manual) Monocytes # (Manual) APTT POC ABG pO2 Sodium 150 H Potassium Chloride 112.8 H Carbon Dioxide 21 L BUN 72 H Creatinine 1.6 H Glucose 252 H POC Glucose 264 H Calcium Phosphorus Magnesium 1.60 L Iron TIBC Alkaline Phosphatase C-Reactive Protein Total Protein Albumin 2.6 L Vitamin B12 Crossmatch 08/09/18 08/09/18 08/09/18 07:50 10:14 10:43 WBC RBC Hgb Hct MCH RDW Plt Count Lymph % (Auto) [place] % (Auto) Lymph # [place] # Seg Neutrophils % Seg Neuts % (Manual) Lymphocytes % (Manual) Monocytes % (Manual) Seg Neutrophils # Seg Neutrophils # Man Lymphocytes # (Manual) Monocytes # (Manual) APTT POC ABG pO2 Sodium Potassium Chloride Carbon Dioxide BUN Creatinine Glucose POC Glucose 258 H 221 H Calcium Phosphorus Magnesium 1.40 L Iron TIBC Alkaline Phosphatase C-Reactive Protein Total Protein Albumin Vitamin B12 Crossmatch 08/09/18 08/09/18 08/09/18 11:31 14:26 19:06 WBC RBC Hgb Hct MCH RDW Plt Count Lymph % (Auto) [place] % (Auto) Lymph # [place] # Seg Neutrophils % Seg Neuts % (Manual) Lymphocytes % (Manual) Monocytes % (Manual) Seg Neutrophils # Seg Neutrophils # Man Lymphocytes # (Manual) Monocytes # (Manual) APTT POC ABG pO2 Sodium Potassium Chloride Carbon Dioxide BUN Creatinine Glucose POC Glucose 240 H 242 H 198 H Calcium Phosphorus Magnesium Iron TIBC Alkaline Phosphatase C-Reactive Protein Total Protein Albumin Vitamin B12 Crossmatch 08/09/18 08/10/18 08/10/18 22:16 02:39 04:08 WBC RBC 3.18 L Hgb 8.7 L Hct 27.7 L MCH RDW 19.9 H Plt Count Lymph % (Auto) [place] % (Auto) Lymph # [place] # Seg Neutrophils % Seg Neuts % (Manual) Lymphocytes % (Manual) Monocytes % (Manual) Seg Neutrophils # Seg Neutrophils # Man Lymphocytes # (Manual) Monocytes # (Manual) APTT POC ABG pO2 Sodium Potassium Chloride Carbon Dioxide BUN Creatinine Glucose POC Glucose 188 H 196 H Calcium Phosphorus Magnesium Iron TIBC Alkaline Phosphatase C-Reactive Protein Total Protein Albumin Vitamin B12 Crossmatch 08/10/18 08/10/18 08/10/18 04:08 07:14 09:28 WBC RBC Hgb Hct MCH RDW Plt Count Lymph % (Auto) [place] % (Auto) Lymph # [place] # Seg Neutrophils % Seg Neuts % (Manual) Lymphocytes % (Manual) Monocytes % (Manual) Seg Neutrophils # Seg Neutrophils # Man Lymphocytes # (Manual) Monocytes # (Manual) APTT POC ABG pO2 Sodium 147 H Potassium 3.3 L Chloride 110.0 H Carbon Dioxide BUN 65 H Creatinine 1.3 H Glucose 199 H POC Glucose 194 H 253 H Calcium Phosphorus Magnesium Iron TIBC Alkaline Phosphatase 147 H C-Reactive Protein Total Protein Albumin 2.6 L Vitamin B12 Crossmatch 08/10/18 08/10/18 08/10/18 11:09 14:55 18:35 WBC RBC Hgb Hct MCH RDW Plt Count Lymph % (Auto) [place] % (Auto) Lymph # [place] # Seg Neutrophils % Seg Neuts % (Manual) Lymphocytes % (Manual) Monocytes % (Manual) Seg Neutrophils # Seg Neutrophils # Man Lymphocytes # (Manual) Monocytes # (Manual) APTT POC ABG pO2 Sodium Potassium Chloride Carbon Dioxide BUN Creatinine Glucose POC Glucose 321 H 230 H 116 H Calcium Phosphorus Magnesium Iron TIBC Alkaline Phosphatase C-Reactive Protein Total Protein Albumin Vitamin B12 Crossmatch 08/10/18 08/11/18 08/11/18 23:33 03:15 04:11 WBC RBC 2.85 L Hgb 8.1 L Hct 24.6 L MCH RDW 19.8 H Plt Count Lymph % (Auto) [place] % (Auto) Lymph # [place] # Seg Neutrophils % Seg Neuts % (Manual) Lymphocytes % (Manual) Monocytes % (Manual) Seg Neutrophils # Seg Neutrophils # Man Lymphocytes # (Manual) Monocytes # (Manual) APTT POC ABG pO2 Sodium Potassium Chloride Carbon Dioxide BUN Creatinine Glucose POC Glucose 174 H 216 H Calcium Phosphorus Magnesium Iron TIBC Alkaline Phosphatase C-Reactive Protein Total Protein Albumin Vitamin B12 Crossmatch 08/11/18 08/11/18 08/11/18 04:11 07:21 09:55 WBC RBC Hgb Hct MCH RDW Plt Count Lymph % (Auto) [place] % (Auto) Lymph # [place] # Seg Neutrophils % Seg Neuts % (Manual) Lymphocytes % (Manual) Monocytes % (Manual) Seg Neutrophils # Seg Neutrophils # Man Lymphocytes # (Manual) Monocytes # (Manual) APTT POC ABG pO2 Sodium Potassium 3.1 L Chloride 108.2 H Carbon Dioxide 21 L BUN 56 H Creatinine Glucose 225 H POC Glucose 199 H 204 H Calcium Phosphorus Magnesium 1.60 L Iron TIBC Alkaline Phosphatase 159 H C-Reactive Protein Total Protein Albumin 2.4 L Vitamin B12 Crossmatch 08/11/18 08/11/18 08/11/18 11:20 15:12 18:38 WBC RBC Hgb Hct MCH RDW Plt Count Lymph % (Auto) [place] % (Auto) Lymph # [place] # Seg Neutrophils % Seg Neuts % (Manual) Lymphocytes % (Manual) Monocytes % (Manual) Seg Neutrophils # Seg Neutrophils # Man Lymphocytes # (Manual) Monocytes # (Manual) APTT POC ABG pO2 Sodium Potassium Chloride Carbon Dioxide BUN Creatinine Glucose POC Glucose 191 H 168 H 144 H Calcium Phosphorus Magnesium Iron TIBC Alkaline Phosphatase C-Reactive Protein Total Protein Albumin Vitamin B12 Crossmatch 08/11/18 08/12/18 08/12/18 22:07 03:24 03:38 WBC RBC Hgb Hct MCH RDW Plt Count Lymph % (Auto) [place] % (Auto) Lymph # [place] # Seg Neutrophils % Seg Neuts % (Manual) Lymphocytes % (Manual) Monocytes % (Manual) Seg Neutrophils # Seg Neutrophils # Man Lymphocytes # (Manual) Monocytes # (Manual) APTT POC ABG pO2 Sodium Potassium Chloride 110.1 H Carbon Dioxide 21 L BUN 58 H Creatinine 1.3 H Glucose 207 H POC Glucose 139 H 204 H Calcium Phosphorus Magnesium Iron TIBC Alkaline Phosphatase C-Reactive Protein Total Protein Albumin Vitamin B12 Crossmatch 08/12/18 08/12/18 08/12/18 07:25 12:10 16:24 WBC RBC Hgb Hct MCH RDW Plt Count Lymph % (Auto) [place] % (Auto) Lymph # [place] # Seg Neutrophils % Seg Neuts % (Manual) Lymphocytes % (Manual) Monocytes % (Manual) Seg Neutrophils # Seg Neutrophils # Man Lymphocytes # (Manual) Monocytes # (Manual) APTT POC ABG pO2 Sodium Potassium Chloride Carbon Dioxide BUN Creatinine Glucose POC Glucose 157 H 292 H 253 H Calcium Phosphorus Magnesium Iron TIBC Alkaline Phosphatase C-Reactive Protein Total Protein Albumin Vitamin B12 Crossmatch 08/13/18 08/13/18 08/13/18 00:24 04:18 06:41 WBC RBC Hgb Hct MCH RDW Plt Count Lymph % (Auto) [place] % (Auto) Lymph # [place] # Seg Neutrophils % Seg Neuts % (Manual) Lymphocytes % (Manual) Monocytes % (Manual) Seg Neutrophils # Seg Neutrophils # Man Lymphocytes # (Manual) Monocytes # (Manual) APTT POC ABG pO2 Sodium 147 H Potassium Chloride 117.0 H Carbon Dioxide BUN 63 H Creatinine 1.8 H Glucose 194 H POC Glucose 151 H 212 H Calcium Phosphorus Magnesium Iron TIBC Alkaline Phosphatase C-Reactive Protein Total Protein Albumin Vitamin B12 Crossmatch 08/13/18 08/13/18 08/13/18 11:37 17:41 23:56 WBC RBC Hgb Hct MCH RDW Plt Count Lymph % (Auto) [place] % (Auto) Lymph # [place] # Seg Neutrophils % Seg Neuts % (Manual) Lymphocytes % (Manual) Monocytes % (Manual) Seg Neutrophils # Seg Neutrophils # Man Lymphocytes # (Manual) Monocytes # (Manual) APTT POC ABG pO2 Sodium Potassium Chloride Carbon Dioxide BUN Creatinine Glucose POC Glucose 248 H 234 H 168 H Calcium Phosphorus Magnesium Iron TIBC Alkaline Phosphatase C-Reactive Protein Total Protein Albumin Vitamin B12 Crossmatch 08/14/18 08/14/18 08/14/18 04:32 06:02 09:28 WBC RBC Hgb Hct MCH RDW Plt Count Lymph % (Auto) [place] % (Auto) Lymph # [place] # Seg Neutrophils % Seg Neuts % (Manual) Lymphocytes % (Manual) Monocytes % (Manual) Seg Neutrophils # Seg Neutrophils # Man Lymphocytes # (Manual) Monocytes # (Manual) APTT POC ABG pO2 Sodium Potassium Chloride 109.2 H Carbon Dioxide 21 L BUN 59 H Creatinine 1.4 H Glucose 181 H POC Glucose 204 H 269 H Calcium Phosphorus Magnesium Iron TIBC Alkaline Phosphatase C-Reactive Protein Total Protein Albumin Vitamin B12 Crossmatch 08/14/18 08/14/18 11:32 17:26 WBC RBC Hgb Hct MCH RDW Plt Count Lymph % (Auto) [place] % (Auto) Lymph # [place] # Seg Neutrophils % Seg Neuts % (Manual) Lymphocytes % (Manual) Monocytes % (Manual) Seg Neutrophils # Seg Neutrophils # Man Lymphocytes # (Manual) Monocytes # (Manual) APTT POC ABG pO2 Sodium Potassium Chloride Carbon Dioxide BUN Creatinine Glucose POC Glucose 292 H 195 H Calcium Phosphorus Magnesium Iron TIBC Alkaline Phosphatase C-Reactive Protein Total Protein Albumin Vitamin B12 Crossmatch Chest x-ray: report reviewed, image reviewed
[2018-08-14] MEDS ORDERED: TPN ADULT 1,560 ML IV SCH (20:00)
--- NOTE | 2018-08-14 21:48 | Hem/Onc Progress Note ---
Assessment and Plan 1. T4a N0 Mx adenocarcinoma.bowel perforation, hence labeled as stage 4. 2. A 12 lymph nodes were negative. 3. History of diabetes. 4. History of hypertension. 5. History of fall. 6. History of metabolic encephalopathy. 7. 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 8. History of respiratory failure. 9. History of renal impairment. 10. As per the nursing staff, the patient is DNR. The patient received blood transfusion for anemia. 11. The patient is elderly. 12. As per the information, the patient had bowel perforation, hence labeled as stage 4. 13. The patient was intubated at one time during this admission. 14. I will follow the patient. d/w dr meza d/w family pt was using a walker before coming if pts performance improves - willl look into immune based or targetted therapy abdo drain+ 08/08 - CEA 5.6 08/09 - pt on TPN - will await improvement in pts performance status to decide options 08/10 - pt eating placement being looked into 08/11- pt had a BM - d/w surgical team iv iron 08/12 - still om TPN eating better OP follow up an option 08/13 - d/w multiple family members - who were present 08/14 - d/w RN - pt on TPN and some orally - sx team following - Patient Problems (1) Colon cancer Current Visit: Yes Status: Acute Subjective Date of service: 08/14/18 Principal diagnosis: colon ca Objective - Constitutional Vitals: Last Vital Signs Temp 98.5 F 08/14/18 20:00 Pulse 83 08/14/18 20:02 Resp 20 08/14/18 20:00 BP 132/53 08/14/18 20:02 Pulse Ox 94 08/14/18 20:00 Pain Intensity (0-10): denies any pain General appearance: no acute distress Performance status: 3-limited selfcare - EENT Eyes: EOM intact ENT: clear oral mucosa Lymph node exam: negative cervical, negative supraclavicular - Neck Neck: normal ROM - Respiratory Respiratory effort: Positive: normal Respiratory: bilateral: CTA - Cardiovascular Heart Sounds: Present: S1 & S2 Extremities: No edema - Gastrointestinal General gastrointestinal: Present: soft Rectal Exam: deferred - Genitourinary Female genitourinary: Present: deferred - Integumentary Integumentary: warm - Musculoskeletal Musculoskeletal: generalized weakness - Neurologic Neurologic: moves all extremities - Labs Lab Results: Laboratory Results - last 24 hr 08/13/18 08/14/18 08/14/18 23:56 04:32 04:32 Sodium 139 D Potassium 4.6 Chloride 109.2 H Carbon Dioxide 21 L Anion Gap 13 BUN 59 H Creatinine 1.4 H Estimated GFR 43 BUN/Creatinine Ratio 42 Glucose 181 H POC Glucose 168 H Calcium 8.7 Phosphorus 3.60 Magnesium 2.00 08/14/18 08/14/18 08/14/18 06:02 09:28 11:32 Sodium Potassium Chloride Carbon Dioxide Anion Gap BUN Creatinine Estimated GFR BUN/Creatinine Ratio Glucose POC Glucose 204 H 269 H 292 H Calcium Phosphorus Magnesium 08/14/18 17:26 Sodium Potassium Chloride Carbon Dioxide Anion Gap BUN Creatinine Estimated GFR BUN/Creatinine Ratio Glucose POC Glucose 195 H Calcium Phosphorus Magnesium Medications & Allergies - Medications Allergies/Adverse Reactions: Allergies No Known Allergies Allergy (Unverified 07/18/18 20:42) Home Medications: Home Medications Medication Instructions Recorded Confirmed Last Taken Type Furosemide [Lasix] 20 mg PO DAILY 07/19/18 07/19/18 07/18/18 History Insulin Aspart [Novolog Flexpen] 100 unit SQ TID 07/19/18 07/19/18 07/18/18 History Losartan Potassium [Cozaar] 50 mg PO DAILY 07/19/18 07/19/18 07/18/18 History Metoprolol Xl [Metoprolol 25 mg PO QDAY 07/19/18 07/19/18 07/18/18 History SUCCINATE ER TAB] Naproxen 500 mg PO BID 07/19/18 07/19/18 07/18/18 History Ranitidine HCl [Acid Control] 150 mg PO BID 07/19/18 07/19/18 07/18/18 History Active Medications: Generic Name Dose Route Start Last Admin Trade Name Freq PRN Reason Stop Dose Admin Albuterol 2.5 mg 07/24/18 20:13 07/24/18 20:31 Proventil IH 2.5 mg Q4HRT PRN Administration Shortness Of Breath Albuterol/Ipratropium 1 ampul 07/25/18 14:00 08/14/18 20:12 Duoneb *Not For Prn Use* IH Not Given TIDRT TRINY Amlodipine Besylate 10 mg 08/09/18 16:00 08/14/18 09:20 Norvasc PO 10 mg QDAY TRINY Administration Clonidine HCl 0.3 mg 07/25/18 10:00 08/08/18 10:02 Catapres-Tts Patch TD 0.3 mg Mo TRINY Administration Dextrose 50 ml 07/19/18 02:51 D50w (25gm) Syringe IV PRN PRN Hypoglycemia Hydralazine HCl 20 mg 08/09/18 14:00 08/14/18 20:02 Apresoline IV 20 mg Q6H TRINY Administration Amino Acids/Electrolytes/Dextrose 1,560 mls @ 65 mls/hr 08/14/18 20:00 08/14/18 20:55 Tpn Adult IV 08/15/18 19:59 65 mls/hr DAILY@2000 [facility] Administration Protocol Insulin Glargine 20 units 08/02/18 11:00 08/14/18 09:25 Lantus SUB-Q 20 units DAILY TRINY Administration Insulin Human Lispro 0 unit 08/12/18 12:00 08/14/18 17:43 Humalog SUB-Q 3 unit Q6HR [facility] Administration Protocol Labetalol HCl 10 mg 07/26/18 12:37 08/08/18 05:06 Normodyne IV 10 mg Q4H PRN Administration Blood Pressure Morphine Sulfate 2 mg 08/03/18 00:21 08/14/18 17:03 Morphine IV 2 mg Q3H PRN Administration Pain, Moderate (4-6) Multi-Ingred Cream/Lotion/Oil/Oint 1 applic 08/01/18 11:56 Artificial Tears Ophth Oint OU Q4HR PRN Dry Eye(s) Pantoprazole Sodium 40 mg 08/02/18 10:00 08/14/18 09:19 Protonix IV 40 mg QDAY TRINY Administration
[2018-08-15] MEDS: APRESOLINE IV SCH ×4 (02:09→21:32)
[2018-08-15] MEDS: MORPHINE IV PRN (05:46)
[2018-08-15] MEDS: HumaLOG SUB-Q SCH ×3 (06:24→17:26)
[2018-08-15] MEDS ORDERED: PERCOCET 5/325 PO PRN (07:30)
--- NOTE | 2018-08-15 08:11 | Hem/Onc Progress Note ---
Assessment and Plan 1. T4a N0 Mx adenocarcinoma.bowel perforation, hence labeled as stage 4. 2. A 12 lymph nodes were negative. 3. History of diabetes. 4. History of hypertension. 5. History of fall. 6. History of metabolic encephalopathy. 7. 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 8. History of respiratory failure. 9. History of renal impairment. 10. As per the nursing staff, the patient is DNR. The patient received blood transfusion for anemia. 11. The patient is elderly. 12. As per the information, the patient had bowel perforation, hence labeled as stage 4. 13. The patient was intubated at one time during this admission. 14. I will follow the patient. d/w dr meza d/w family pt was using a walker before coming if pts performance improves - willl look into immune based or targetted therapy abdo drain+ 08/08 - CEA 5.6 08/09 - pt on TPN - will await improvement in pts performance status to decide options 08/10 - pt eating placement being looked into 08/11- pt had a BM - d/w surgical team iv iron 08/12 - still on TPN eating better OP follow up an option 08/13 - d/w multiple family members - who were present 08/14 - d/w RN - pt on TPN and some orally - sx team following 08/15 - no major issues - eating better - placement pending - Patient Problems (1) Colon cancer Current Visit: Yes Status: Acute Subjective Date of service: 08/15/18 Principal diagnosis: colon cancer Interval history: sitting on chair Objective - Constitutional Vitals: Last Vital Signs Temp 98.0 F 08/15/18 02:07 Pulse 91 H 08/15/18 07:53 Resp 18 08/15/18 02:07 BP 183/78 08/15/18 07:53 Pulse Ox 96 08/15/18 02:07 Pain Intensity (0-10): denies any pain General appearance: no acute distress Performance status: 3-limited selfcare - EENT Eyes: EOM intact ENT: clear oral mucosa Lymph node exam: negative cervical, negative supraclavicular - Neck Neck: normal ROM - Respiratory Respiratory effort: Positive: normal Respiratory: bilateral: CTA - Cardiovascular Heart Sounds: Present: S1 & S2 Extremities: normal temperature - Gastrointestinal General gastrointestinal: Present: soft, other (s/p sx) Rectal Exam: deferred - Genitourinary Female genitourinary: Present: deferred - Integumentary Integumentary: warm - Musculoskeletal Musculoskeletal: strength equal bilaterally - Neurologic Neurologic: moves all extremities - Labs Lab Results: Laboratory Results - last 24 hr 08/14/18 08/14/18 08/14/18 09:28 11:32 17:26 POC Glucose 269 H 292 H 195 H 08/14/18 08/15/18 23:56 05:56 POC Glucose 188 H 158 H Medications & Allergies - Medications Allergies/Adverse Reactions: Allergies No Known Allergies Allergy (Unverified 07/18/18 20:42) Home Medications: Home Medications Medication Instructions Recorded Confirmed Last Taken Type Furosemide [Lasix] 20 mg PO DAILY 07/19/18 07/19/18 07/18/18 History Insulin Aspart [Novolog Flexpen] 100 unit SQ TID 07/19/18 07/19/18 07/18/18 History Losartan Potassium [Cozaar] 50 mg PO DAILY 07/19/18 07/19/18 07/18/18 History Metoprolol Xl [Metoprolol 25 mg PO QDAY 07/19/18 07/19/18 07/18/18 History SUCCINATE ER TAB] Naproxen 500 mg PO BID 07/19/18 07/19/18 07/18/18 History Ranitidine HCl [Acid Control] 150 mg PO BID 07/19/18 07/19/18 07/18/18 History Active Medications: Generic Name Dose Route Start Last Admin Trade Name Freq PRN Reason Stop Dose Admin Acetaminophen/Hydrocodone Bitart 1 each 08/15/18 07:33 [place] 5/325 PO Q4H PRN Pain, Moderate (4-6) Albuterol 2.5 mg 07/24/18 20:13 07/24/18 20:31 Proventil IH 2.5 mg Q4HRT PRN Administration Shortness Of Breath Albuterol/Ipratropium 1 ampul 07/25/18 14:00 08/14/18 20:12 Duoneb *Not For Prn Use* IH Not Given TIDRT TRINY Amlodipine Besylate 10 mg 08/09/18 16:00 08/14/18 09:20 Norvasc PO 10 mg QDAY TRINY Administration Clonidine HCl 0.3 mg 07/25/18 10:00 08/08/18 10:02 Catapres-Tts Patch TD 0.3 mg Mo TRINY Administration Dextrose 50 ml 07/19/18 02:51 D50w (25gm) Syringe IV PRN PRN Hypoglycemia Hydralazine HCl 20 mg 08/09/18 14:00 08/15/18 07:53 Apresoline IV 20 mg Q6H TRINY Administration Insulin Glargine 20 units 08/02/18 11:00 08/14/18 09:25 Lantus SUB-Q 20 units DAILY TRINY Administration Insulin Human Lispro 0 unit 08/12/18 12:00 08/15/18 06:24 Humalog SUB-Q 3 unit Q6HR TRINY Administration Protocol Labetalol HCl 10 mg 07/26/18 12:37 08/08/18 05:06 Normodyne IV 10 mg Q4H PRN Administration Blood Pressure Multi-Ingred Cream/Lotion/Oil/Oint 1 applic 08/01/18 11:56 Artificial Tears Ophth Oint OU Q4HR PRN Dry Eye(s) Pantoprazole Sodium 40 mg 08/15/18 10:00 Protonix PO DAILY TRINY
[2018-08-15] MEDS: DUONEB *Not for PRN Use IH SCH ×3 (08:38→19:59)
[2018-08-15] MEDS: LANTUS SUB-Q SCH (09:03)
[2018-08-15] MEDS: FEOSOL PO SCH ×2 (09:04→21:32)
[2018-08-15] MEDS: PROTONIX PO SCH (09:04)
[2018-08-15] MEDS: NORVASC PO SCH (09:06)
[2018-08-15] MEDS: CATAPRES-TTS PATCH TD SCH (09:06)
--- NOTE | 2018-08-15 11:30 | Progress Note ---
Assessment and Plan Impression: * Acute kidney injury secondary multifactorial etioloiges: prerenal azotemia, sepsis related ATN, contrast induced nephropathy * Stage IV adenocarcinoma of colon * s/p right hemicolectomy, ileocolic anastamosis * Sepsis * Intraabdominal abscess w/?perforation vs necrotic tumor * Hypernatermia * Hypertension Plan: * Renal function was improving, she is volume deplete * on tpn, may need more volume, follow up am lytes * Hypernatremia noted, gentle ivfs prn D5W * Replete K prn * Abx per ID * Transfuse pRBC per primary team * Consultants' recommendations reviewed * Avoid nephrotoxins * Dose medications for renal function Subjective Date of service: 08/15/18 Principal diagnosis: colon ca Interval history: resting in bed today Objective - Exam Narrative Exam: General appearance: well-developed, well-nourished EENT: ATNC Respiratory: Present: Decreased Breath Sounds Cardiology: regular, S1S2 Gastrointestinal: hypoactive bowel sounds Integumentary: warm and dry Neurologic: no focal deficit Psychiatric: cooperative - Vital Signs Vital signs: Vital Signs - 12hr 08/15/18 08/15/18 08/15/18 02:07 02:08 02:09 Temperature 98.0 F Pulse Rate 90 94 H Pulse Rate [ Anterior Bilateral Throughout] Pulse Rate [ Right Radial] Respiratory 18 Rate Respiratory Rate [Anterior Bilateral Throughout] Blood Pressure 156/57 156/57 O2 Sat by Pulse 96 Oximetry 08/15/18 08/15/18 08/15/18 07:45 07:53 08:31 Temperature 98.0 F Pulse Rate 92 H 91 H Pulse Rate [ 90 Anterior Bilateral Throughout] Pulse Rate [ Right Radial] Respiratory 23 Rate Respiratory 20 Rate [Anterior Bilateral Throughout] Blood Pressure 183/78 183/78 O2 Sat by Pulse 91 98 Oximetry 08/15/18 08/15/18 08/15/18 08:41 09:06 09:43 Temperature Pulse Rate 104 H Pulse Rate [ 92 H Anterior Bilateral Throughout] Pulse Rate [ 92 H Right Radial] Respiratory 20 Rate Respiratory 20 Rate [Anterior Bilateral Throughout] Blood Pressure 133/67 O2 Sat by Pulse 98 Oximetry - Lab 08/11/18 04:11 08/14/18 04:32 Most recent lab results Calcium 8.7 mg/dL (8.4-10.2) 08/14/18 04:32 Phosphorus 3.60 mg/dL (2.5-4.5) 08/14/18 04:32 Magnesium 2.00 mg/dL (1.7-2.3) 08/14/18 04:32 Medications & Allergies - Medications Allergies/Adverse Reactions: Allergies No Known Allergies Allergy (Unverified 07/18/18 20:42) Home Medications: Home Medications Medication Instructions Recorded Confirmed Last Taken Type Furosemide [Lasix] 20 mg PO DAILY 07/19/18 07/19/18 07/18/18 History Insulin Aspart [Novolog Flexpen] 100 unit SQ TID 07/19/18 07/19/18 07/18/18 History Losartan Potassium [Cozaar] 50 mg PO DAILY 07/19/18 07/19/18 07/18/18 History Metoprolol Xl [Metoprolol 25 mg PO QDAY 07/19/18 07/19/18 07/18/18 History SUCCINATE ER TAB] Naproxen 500 mg PO BID 07/19/18 07/19/18 07/18/18 History Ranitidine HCl [Acid Control] 150 mg PO BID 07/19/18 07/19/18 07/18/18 History Active Medications: Generic Name Dose Route Start Last Admin Trade Name Freq PRN Reason Stop Dose Admin Acetaminophen/Hydrocodone Bitart 1 each 08/15/18 07:33 [place] 5/325 PO Q4H PRN Pain, Moderate (4-6) Albuterol 2.5 mg 07/24/18 20:13 07/24/18 20:31 Proventil IH 2.5 mg Q4HRT PRN Administration Shortness Of Breath Albuterol/Ipratropium 1 ampul 07/25/18 14:00 08/15/18 08:38 Duoneb *Not For Prn Use* IH 1 ampul TIDRT TRINY Administration Amlodipine Besylate 10 mg 08/09/18 16:00 08/15/18 09:06 Norvasc PO 10 mg QDAY TRINY Administration Clonidine HCl 0.3 mg 07/25/18 10:00 08/15/18 09:06 Catapres-Tts Patch TD 0.3 mg Mo TRINY Administration Dextrose 50 ml 07/19/18 02:51 D50w (25gm) Syringe IV PRN PRN Hypoglycemia Ferrous Sulfate 325 mg 08/15/18 10:00 08/15/18 09:04 Feosol PO 325 mg BID TRINY Administration Hydralazine HCl 20 mg 08/09/18 14:00 08/15/18 07:53 Apresoline IV 20 mg Q6H TRINY Administration Insulin Glargine 20 units 08/02/18 11:00 08/15/18 09:03 Lantus SUB-Q 20 units DAILY TRINY Administration Insulin Human Lispro 0 unit 08/12/18 12:00 08/15/18 06:24 Humalog SUB-Q 3 unit Q6HR TRINY Administration Protocol Labetalol HCl 10 mg 07/26/18 12:37 08/08/18 05:06 Normodyne IV 10 mg Q4H PRN Administration Blood Pressure Multi-Ingred Cream/Lotion/Oil/Oint 1 applic 08/01/18 11:56 Artificial Tears Ophth Oint OU Q4HR PRN Dry Eye(s) Pantoprazole Sodium 40 mg 08/15/18 10:00 08/15/18 09:04 Protonix PO 40 mg DAILY TRINY Administration
[2018-08-15] MEDS: NORCO 5/325 PO PRN ×3 (13:40→23:03)
--- NOTE | 2018-08-15 14:37 | Progress Note ---
Assessment and Plan /Bowel perforation with suspected Tumor Necrosis due to Stage IV Adenocarcinoma, - s/p surgery 08/01/18, intubated for surgery, s/p extubated 08/02/18: continue 02 support, started TPN on 07/23/[address] Braden, General Surgeon. Now also tole rating diet, will stop TPN today. /Hypernatremia - resolved now, likely from dehydration /Hypertensive urgency, Bp controlled on the following: - catapress patch, norvasc, also use iv hydralazine and iv labetalol as needed /ARF, ATN suspected: Nephrology following, improved /Recurrent falls with episodes of hypoglycemia: held DM medication(s), treated with dextrose, following accuchecks /Sepsis with perforated bowel from colon cancer s/p surgery, ID following, completed abx treatment - completed IV Cefepime and Flagyl x 15 days - then switched to IV zosyn 08/03/2018 end date 08/08/18, given worsening renal function and high risk of neurotoxicity from Cefepime in the setting of renal f ailure, elderly patient /Acute metabolic encephalopathy: due to hypoglycemia and sepsis, resolved /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: vascular input noted, no intervention needed at this time /IDDM: restarted insulin coverage, BG much stable now /DVT/GI prophylaxis: sq heparin, IV ppi Full code Disposition: inpatient care, consult Case management unable to get LTACH vs SNF Brief History: The patient is an 87-year-old female with diabetes mellitus, congestive heart failure, HTN who presented to the emergency room with some altered mental status and having multiple falls. She also had some nausea and vomiting and complained of abdominal pain. In the emergency room, she underwent a CT of the abdomen and pelvis which was concerning for possible perforated appendicitis versus diverticulitis versus phlegmon. She was admitted with concerns for sepsis and s tarted empirically on IV antibiotics. She was initially managed medically, then has surgery on 08/01/[address] Wooten with Exploratory laparotomy, lysis of extensive adhesion, right hemicolectomy with ileocolic anastomosis. Also noted A very large mass extending outside of the colon into the retroperitoneum in the area of the hepatic flexure. Placed on TPN following surgery, now tolerating Po diet. Stop TPN, need placement. Hospitalist Physical Gen: WDWN, NAD, Awake, Alert, Orientated x 1 HEENT: NCAT, EOMI, PERRL, OP Clear Neck: supple, no adenopathy, no thyromegaly, no JVD CVS/Heart: RRR, normal S1S2, pulses present bilaterally Chest/Lungs: diminished bs bilateral, Symmetrical chest expansion, good air entry bilaterally GI/Abdomen: soft diffusely tender, dressing intact, good bowel sounds, no guarding or rebound /Bladder: no suprapubic tenderness, no CVA or paraspinal tenderness Extermity/Skin: no c/c/e, no obvious rash MSK: FROM x 4 Neuro: CN 2-12 grossly intact, no new focal deficits Psych: calm Subjective Date of service: 08/15/18 Principal diagnosis: colon ca Interval history: Pt seen and examined, started on diet, also on TPN c/o abdominal pain, family at bedside Objective - Constitutional Vitals: Vital Signs - 12hr 08/15/18 08/15/18 08/15/18 07:45 07:53 08:31 Temperature 98.0 F Pulse Rate 92 H 91 H Pulse Rate [ 90 Anterior Bilateral Throughout] Pulse Rate [ Right Radial] Respiratory 23 Rate Respiratory 20 Rate [Anterior Bilateral Throughout] Blood Pressure 183/78 183/78 Blood Pressure [Right] O2 Sat by Pulse 91 98 Oximetry 08/15/18 08/15/18 08/15/18 08:41 09:06 09:43 Temperature Pulse Rate 104 H Pulse Rate [ 92 H Anterior Bilateral Throughout] Pulse Rate [ 92 H Right Radial] Respiratory 20 Rate Respiratory 20 Rate [Anterior Bilateral Throughout] Blood Pressure 133/67 Blood Pressure [Right] O2 Sat by Pulse 98 Oximetry 08/15/18 08/15/18 13:57 14:04 Temperature 98.3 F Pulse Rate 89 89 Pulse Rate [ Anterior Bilateral Throughout] Pulse Rate [ Right Radial] Respiratory 19 Rate Respiratory Rate [Anterior Bilateral Throughout] Blood Pressure 143/79 Blood Pressure 143/79 [Right] O2 Sat by Pulse 96 Oximetry - Labs CBC & Chem 7: 08/16/18 04:06 08/16/18 04:06 Labs: Abnormal lab results 08/14/18 08/14/18 08/15/18 Range/Units 17:26 23:56 05:56 POC Glucose 195 H 188 H 158 H (70-105) 08/15/18 08/15/18 Range/Units 09:03 11:48 POC Glucose 155 H 210 H (70-105)
[2018-08-16] MEDS: HumaLOG SUB-Q SCH ×4 (00:34→21:21)
[2018-08-16] MEDS: APRESOLINE IV SCH ×4 (04:56→21:20)
[2018-08-16 04:59] LABS: Basophils % (Auto) 0.4 % (0.0-1.8); Eosinophils # (Auto) 0.1 K/mm3 (0.0-0.4); Eosinophils % (Auto) 1.8 % (0.0-4.3); Hematocrit 24.2 % (30.3-42.9); Hemoglobin 7.7 gm/dl (10.1-14.3); Lymphocytes # (Auto) 3.1 K/mm3 (1.2-5.4); Lymphocytes % (Auto) 39.7 % (13.4-35.0); Mean Corpuscular HGB Conc 32 % (30-34); Mean Corpuscular Volume 88 fl (79-97); Monocytes # (Auto) 0.9 K/mm3 (0.0-0.8); Monocytes % (Auto) 11.1 % (0.0-7.3); Platelet Count 287 K/mm3 (140-440); Red Blood Count 2.76 M/mm3 (3.65-5.03)
[2018-08-16 05:00] LABS: Red Cell Distribution Width 21.7 % (13.2-15.2)
[2018-08-16 06:28] LABS: Calcium 8.3 mg/dL (8.4-10.2)
[2018-08-16] MEDS: DUONEB *Not for PRN Use IH SCH ×3 (07:52→19:55)
[2018-08-16] MEDS: NORCO 5/325 PO PRN ×3 (08:17→21:19)
[2018-08-16] MEDS: NORVASC PO SCH (10:14)
[2018-08-16] MEDS: PROTONIX PO SCH (10:14)
[2018-08-16] MEDS: FEOSOL PO SCH ×2 (10:14→21:19)
[2018-08-16] MEDS: LANTUS SUB-Q SCH ×2 (10:26→13:44)
--- NOTE | 2018-08-16 12:35 | Progress Note ---
Assessment and Plan /Bowel perforation with suspected Tumor Necrosis due to Stage IV Adenocarcinoma, - s/p surgery 08/01/18, intubated for surgery, s/p extubated 08/02/18: continue 02 support, started TPN on 07/23/[address] Braden General Surgeon till 08/15/18. Now tolerating diet, off TPN /Hypernatremia - resolved now, likely from dehydration /Hypertensive urgency, Bp controlled on the following: - catapress patch, norvasc, also use iv hydralazine and iv labetalol as needed /ARF, ATN suspected: Nephrology following, improved /Recurrent falls with episodes of hypoglycemia: held DM medication(s), treated with dextrose, following accuchecks /Sepsis with perforated bowel from colon cancer s/p surgery, ID following, completed abx treatment - completed IV Cefepime and Flagyl x 15 days - then switched to IV zosyn 08/03/2018 end date 08/08/18, given worsening renal function and high risk of neurotoxicity from Cefepime in the setting of renal failure, elderly patient /Acute metabolic encephalopathy: due to hypoglycemia and sepsis, resolved /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: vascular input noted, no intervention needed at this time /IDDM: restarted insulin coverage, BG much stable now /DVT/GI prophylaxis: sq heparin, IV ppi Full code Disposition: cont inpatient care, pending LTACH vs SNF placement Brief History: The patient is an 87-year-old female with diabetes mellitus, congestive heart failure, HTN who presented to the emergency room with some altered mental status and having multiple falls. She also had some nausea and vomiting and complained of abdominal pain. In the emergency room, she underwent a CT of the abdomen and pelvis which was concerning for possible perforated appendicitis versus diverticulitis versus phlegmon. She was admitted with concerns for sepsis and started empirically on IV antibiotics. She was initially managed medically, then has surgery on 08/01/[address] Wooten with Exploratory laparotomy, lysis of extensive adhesion, right hemicolectomy with ileocolic anastomosis. Also noted A very large mass extending outside of the colon into the retroperitoneum in the area of the hepatic flexure. Placed on TPN following surgery, now tolerating Po diet. Stopped TPN, need placement. Hospitalist Physical Gen: WDWN, NAD, Awake, Alert, Orientated x 1 HEENT: NCAT, EOMI, PERRL, OP Clear Neck: supple, no adenopathy, no thyromegaly, no JVD CVS/Heart: RRR, normal S1S2, pulses present bilaterally Chest/Lungs: diminished bs bilateral, Symmetrical chest expansion, good air entry bilaterally GI/Abdomen: soft diffusely tender, dressing intact, good bowel sounds, no guarding or rebound /Bladder: no suprapubic tenderness, no CVA or paraspinal tenderness Extermity/Skin: no c/c/e, no obvious rash MSK: FROM x 4 Neuro: CN 2-12 grossly intact, no new focal deficits Psych: calm Subjective Date of service: 08/16/18 Principal diagnosis: colon ca Interval history: Pt seen and examined, tolerating po diet, off TPN c/o abdominal pain, family at bedside c/o constipation Objective - Constitutional Vitals: Vital Signs - 12hr 08/16/18 08/16/18 08/16/18 01:40 02:00 04:56 Temperature 98.4 F Pulse Rate 80 80 Pulse Rate [ Anterior Bilateral Throughout] Pulse Rate [ Anterior Bilateral] Pulse Rate [ From Monitor] Respiratory 20 Rate Respiratory Rate [Anterior Bilateral Throughout] Respiratory Rate [Anterior Bilateral] Blood Pressure Blood Pressure 133/58 [Right] O2 Sat by Pulse 97 Oximetry 08/16/18 08/16/18 08/16/18 07:41 07:52 08:17 Temperature 97.6 F Pulse Rate 88 Pulse Rate [ 92 H Anterior Bilateral Throughout] Pulse Rate [ 84 Anterior Bilateral] Pulse Rate [ From Monitor] Respiratory 20 Rate Respiratory 16 Rate [Anterior Bilateral Throughout] Respiratory 16 Rate [Anterior Bilateral] Blood Pressure 151/69 154/69 Blood Pressure [Right] O2 Sat by Pulse 96 Oximetry 08/16/18 08/16/18 10:00 10:14 Temperature Pulse Rate Pulse Rate [ Anterior Bilateral Throughout] Pulse Rate [ Anterior Bilateral] Pulse Rate [ 92 H From Monitor] Respiratory 22 Rate Respiratory Rate [Anterior Bilateral Throughout] Respiratory Rate [Anterior Bilateral] Blood Pressure 140/64 Blood Pressure [Right] O2 Sat by Pulse 99 Oximetry - Labs CBC & Chem 7: 08/16/18 04:06 08/17/18 05:27 Labs: Abnormal lab results 08/16/18 08/16/18 08/16/18 Range/Units 00:26 04:06 04:06 RBC 2.76 L (3.65-5.03) M/mm3 Hgb 7.7 L (10.1-14.3) gm/dl Hct 24.2 L (30.3-42.9) % RDW 21.7 H (13.2-15.2) % Lymph % (Auto) 39.7 H (13.4-35.0) % [place] % (Auto) 11.1 H (0.0-7.3) % [place] # 0.9 H (0.0-0.8) K/mm3 Chloride 110.3 H (98-107) mmol/L Carbon Dioxide 21 L (22-30) mmol/L BUN 45 H (7-17) mg/dL Creatinine 1.5 H (0.7-1.2) mg/dL POC Glucose 64 L (70-105) Calcium 8.3 L (8.4-10.2) mg/dL 08/16/18 Range/Units 12:21 RBC (3.65-5.03) M/mm3 Hgb (10.1-14.3) gm/dl Hct (30.3-42.9) % RDW (13.2-15.2) % Lymph % (Auto) (13.4-35.0) % [place] % (Auto) (0.0-7.3) % [place] # (0.0-0.8) K/mm3 Chloride (98-107) mmol/L Carbon Dioxide (22-30) mmol/L BUN (7-17) mg/dL Creatinine (0.7-1.2) mg/dL POC Glucose 130 H (70-105) Calcium (8.4-10.2) mg/dL
[2018-08-16] MEDS ORDERED: MIRALAX 3350 PO PRN (12:59)
--- NOTE | 2018-08-16 15:37 | Progress Note ---
Assessment and Plan Impression: * Acute kidney injury secondary multifactorial etioloiges: prerenal azotemia, sepsis related ATN, contrast induced nephropathy * Stage IV adenocarcinoma of colon * s/p right hemicolectomy, ileocolic anastamosis * Sepsis * Intraabdominal abscess w/?perforation vs necrotic tumor * Hypernatermia * Hypertension Plan: * Renal function was improving, she is volume deplete * on tpn, may need more volume, follow up am lytes * Hypernatremia noted, gentle ivfs prn D5W * Replete K prn * Abx per ID * Transfuse pRBC per primary team * Consultants' recommendations reviewed * Avoid nephrotoxins * Dose medications for renal function Subjective Date of service: 08/16/18 Principal diagnosis: colon ca Interval history: resting in bed today Objective - Exam Narrative Exam: General appearance: well-developed, well-nourished EENT: ATNC Respiratory: Present: Decreased Breath Sounds Cardiology: regular, S1S2 Gastrointestinal: hypoactive bowel sounds Integumentary: warm and dry Neurologic: no focal deficit Psychiatric: cooperative - Vital Signs Vital signs: Vital Signs - 12hr 08/16/18 08/16/18 08/16/18 04:56 07:41 07:52 Temperature 97.6 F Pulse Rate 80 88 Pulse Rate [ 92 H Anterior Bilateral Throughout] Pulse Rate [ 84 Anterior Bilateral] Pulse Rate [ From Monitor] Respiratory 20 Rate Respiratory 16 Rate [Anterior Bilateral Throughout] Respiratory 16 Rate [Anterior Bilateral] Blood Pressure 151/69 O2 Sat by Pulse 96 Oximetry 08/16/18 08/16/18 08/16/18 08:17 10:00 10:14 Temperature Pulse Rate Pulse Rate [ Anterior Bilateral Throughout] Pulse Rate [ Anterior Bilateral] Pulse Rate [ 92 H From Monitor] Respiratory 22 Rate Respiratory Rate [Anterior Bilateral Throughout] Respiratory Rate [Anterior Bilateral] Blood Pressure 154/69 140/64 O2 Sat by Pulse 99 Oximetry 08/16/18 08/16/18 08/16/18 12:59 13:04 13:43 Temperature 98.0 F Pulse Rate 91 H Pulse Rate [ 82 Anterior Bilateral Throughout] Pulse Rate [ 88 Anterior Bilateral] Pulse Rate [ From Monitor] Respiratory 20 Rate Respiratory 16 Rate [Anterior Bilateral Throughout] Respiratory 16 Rate [Anterior Bilateral] Blood Pressure 159/83 157/72 O2 Sat by Pulse 96 Oximetry - Lab 08/16/18 04:06 08/16/18 04:06 Most recent lab results Calcium 8.3 mg/dL (8.4-10.2) L 08/16/18 04:06 Phosphorus 3.60 mg/dL (2.5-4.5) 08/14/18 04:32 Magnesium 2.00 mg/dL (1.7-2.3) 08/14/18 04:32 Medications & Allergies - Medications Allergies/Adverse Reactions: Allergies No Known Allergies Allergy (Unverified 07/18/18 20:42) Home Medications: Home Medications Medication Instructions Recorded Confirmed Last Taken Type Furosemide [Lasix] 20 mg PO DAILY 07/19/18 07/19/18 07/18/18 History Insulin Aspart [Novolog Flexpen] 100 unit SQ TID 07/19/18 07/19/18 07/18/18 History Losartan Potassium [Cozaar] 50 mg PO DAILY 07/19/18 07/19/18 07/18/18 History Metoprolol Xl [Metoprolol 25 mg PO QDAY 07/19/18 07/19/18 07/18/18 History SUCCINATE ER TAB] Naproxen 500 mg PO BID 07/19/18 07/19/18 07/18/18 History Ranitidine HCl [Acid Control] 150 mg PO BID 07/19/18 07/19/18 07/18/18 History Active Medications: Generic Name Dose Route Start Last Admin Trade Name Freq PRN Reason Stop Dose Admin Acetaminophen/Hydrocodone Bitart 1 each 08/15/18 07:33 08/16/18 08:17 [place] 5/325 PO 1 each Q4H PRN Administration Pain, Moderate (4-6) Albuterol 2.5 mg 07/24/18 20:13 07/24/18 20:31 Proventil IH 2.5 mg Q4HRT PRN Administration Shortness Of Breath Albuterol/Ipratropium 1 ampul 07/25/18 14:00 08/16/18 13:03 Duoneb *Not For Prn Use* IH 1 ampul TIDRT TRINY Administration Amlodipine Besylate 10 mg 08/09/18 16:00 08/16/18 10:14 Norvasc PO 10 mg QDAY TRINY Administration Clonidine HCl 0.3 mg 07/25/18 10:00 08/15/18 09:06 Catapres-Tts Patch TD 0.3 mg Mo TRINY Administration Dextrose 50 ml 07/19/18 02:51 D50w (25gm) Syringe IV PRN PRN Hypoglycemia Ferrous Sulfate 325 mg 08/15/18 10:00 08/16/18 10:14 Feosol PO 325 mg BID TRINY Administration Hydralazine HCl 20 mg 08/09/18 14:00 08/16/18 13:43 Apresoline IV 20 mg Q6H TRINY Administration Insulin Glargine 16 units 08/16/18 14:00 08/16/18 13:44 Lantus SUB-Q 16 units DAILY TRINY Administration Insulin Human Lispro 0 unit 08/12/18 12:00 08/16/18 13:24 Humalog SUB-Q Not Given Q6HR [facility] Protocol Labetalol HCl 10 mg 07/26/18 12:37 08/08/18 05:06 Normodyne IV 10 mg Q4H PRN Administration Blood Pressure Multi-Ingred Cream/Lotion/Oil/Oint 1 applic 08/01/18 11:56 Artificial Tears Ophth Oint OU Q4HR PRN Dry Eye(s) Pantoprazole Sodium 40 mg 08/15/18 10:00 08/16/18 10:14 Protonix PO 40 mg DAILY TRINY Administration Polyethylene Glycol 17 gm 08/16/18 12:59 Miralax 3350 PO QDAY PRN Constipation
[2018-08-17] MEDS: HumaLOG SUB-Q SCH ×4 (00:10→17:52)
[2018-08-17] MEDS: APRESOLINE IV SCH ×4 (02:03→21:46)
[2018-08-17] MEDS: NORCO 5/325 PO PRN ×4 (02:03→21:46)
--- NOTE | 2018-08-17 07:31 | Hem/Onc Progress Note ---
Assessment and Plan 1. T4a N0 Mx adenocarcinoma.bowel perforation, hence labeled as stage 4. 2. A 12 lymph nodes were negative. 3. History of diabetes. 4. History of hypertension. 5. History of fall. 6. History of metabolic encephalopathy. 7. 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 8. History of respiratory failure. 9. History of renal impairment. 10. As per the nursing staff, the patient is DNR. The patient received blood transfusion for anemia. 11. The patient is elderly. 12. As per the information, the patient had bowel perforation, hence labeled as stage 4. 13. The patient was intubated at one time during this admission. 14. I will follow the patient. d/w dr meza d/w family pt was using a walker before coming if pts performance improves - willl look into immune based or targetted therapy abdo drain+ 08/08 - CEA 5.6 08/09 - pt on TPN - will await improvement in pts performance status to decide options 08/10 - pt eating placement being looked into 08/11- pt had a BM - d/w surgical team iv iron 08/12 - still on TPN eating better OP follow up an option 08/13 - d/w multiple family members - who were present 08/14 - d/w RN - pt on TPN and some orally - sx team following 08/15 - no major issues - eating better - placement pending 08/17 - off TPN -eating - had BM placement eval - Patient Problems (1) Colon cancer Current Visit: Yes Status: Acute Subjective Date of service: 08/17/18 Principal diagnosis: colon ca Interval history: d/w RN - TPN stopped eating placement Objective - Constitutional Vitals: Last Vital Signs Temp 98.3 F 08/17/18 02:46 Pulse 88 08/17/18 02:46 Resp 20 08/17/18 02:46 BP 143/61 08/17/18 02:46 Pulse Ox 92 08/17/18 02:46 Pain Intensity (0-10): denies any pain General appearance: no acute distress Performance status: 3-limited selfcare - EENT Eyes: EOM intact ENT: clear oral mucosa Lymph node exam: negative cervical, negative supraclavicular - Neck Neck: normal ROM - Respiratory Respiratory effort: Positive: normal Respiratory: bilateral: CTA - Cardiovascular Heart Sounds: Present: S1 & S2 Extremities: normal temperature - Gastrointestinal General gastrointestinal: Present: soft, other (s/p sx) Rectal Exam: deferred - Genitourinary Female genitourinary: Present: deferred - Integumentary Integumentary: warm - Musculoskeletal Musculoskeletal: strength equal bilaterally - Neurologic Neurologic: moves all extremities - Labs Lab Results: Laboratory Results - last 24 hr 08/16/18 08/16/18 08/16/18 10:28 12:21 17:20 POC Glucose 100 130 H 115 H 08/16/18 08/17/18 23:32 05:45 POC Glucose 97 80 Medications & Allergies - Medications Allergies/Adverse Reactions: Allergies No Known Allergies Allergy (Unverified 07/18/18 20:42) Home Medications: Home Medications Medication Instructions Recorded Confirmed Last Taken Type Furosemide [Lasix] 20 mg PO DAILY 07/19/18 07/19/18 07/18/18 History Insulin Aspart [Novolog Flexpen] 100 unit SQ TID 07/19/18 07/19/18 07/18/18 History Losartan Potassium [Cozaar] 50 mg PO DAILY 07/19/18 07/19/18 07/18/18 History Metoprolol Xl [Metoprolol 25 mg PO QDAY 07/19/18 07/19/18 07/18/18 History SUCCINATE ER TAB] Naproxen 500 mg PO BID 07/19/18 07/19/18 07/18/18 History Ranitidine HCl [Acid Control] 150 mg PO BID 07/19/18 07/19/18 07/18/18 History Active Medications: Generic Name Dose Route Start Last Admin Trade Name Fernandezq PRN Reason Stop Dose Admin Acetaminophen/Hydrocodone Bitart 1 each 08/15/18 07:33 08/17/18 02:03 [place] 5/325 PO 1 each Q4H PRN Administration Pain, Moderate (4-6) Albuterol 2.5 mg 07/24/18 20:13 07/24/18 20:31 Proventil IH 2.5 mg Q4HRT PRN Administration Shortness Of Breath Albuterol/Ipratropium 1 ampul 07/25/18 14:00 08/16/18 19:55 Duoneb *Not For Prn Use* IH 1 ampul TIDRT TRINY Administration Amlodipine Besylate 10 mg 08/09/18 16:00 08/16/18 10:14 Norvasc PO 10 mg QDAY TRINY Administration Clonidine HCl 0.3 mg 07/25/18 10:00 08/15/18 09:06 Catapres-Tts Patch TD 0.3 mg Mo TRINY Administration Dextrose 50 ml 07/19/18 02:51 D50w (25gm) Syringe IV PRN PRN Hypoglycemia Ferrous Sulfate 325 mg 08/15/18 10:00 08/16/18 21:19 Feosol PO 325 mg BID TRINY Administration Hydralazine HCl 20 mg 08/09/18 14:00 08/17/18 02:03 Apresoline IV 20 mg Q6H TRINY Administration Insulin Glargine 16 units 08/16/18 14:00 08/16/18 13:44 Lantus SUB-Q 16 units DAILY TRINY Administration Insulin Human Lispro 0 unit 08/12/18 12:00 08/17/18 05:50 Humalog SUB-Q Not Given Q6HR [facility] Protocol Labetalol HCl 10 mg 07/26/18 12:37 08/08/18 05:06 Normodyne IV 10 mg Q4H PRN Administration Blood Pressure Multi-Ingred Cream/Lotion/Oil/Oint 1 applic 08/01/18 11:56 Artificial Tears Ophth Oint OU Q4HR PRN Dry Eye(s) Pantoprazole Sodium 40 mg 08/15/18 10:00 08/16/18 10:14 Protonix PO 40 mg DAILY TRINY Administration Polyethylene Glycol 17 gm 08/16/18 12:59 Miralax 3350 PO QDAY PRN Constipation
[2018-08-17 07:48] LABS: Calcium 8.2 mg/dL (8.4-10.2)
[2018-08-17] MEDS: DUONEB *Not for PRN Use IH SCH ×3 (07:49→21:24)
[2018-08-17] MEDS: FEOSOL PO SCH ×2 (10:01→21:43)
[2018-08-17] MEDS: PROTONIX PO SCH (10:01)
[2018-08-17] MEDS: NORVASC PO SCH (10:08)
[2018-08-17] MEDS: LANTUS SUB-Q SCH (10:18)
--- NOTE | 2018-08-17 12:41 | Progress Note ---
Assessment and Plan Impression: * Acute kidney injury secondary multifactorial etioloiges: prerenal azotemia, sepsis related ATN, contrast induced nephropathy * Stage IV adenocarcinoma of colon * s/p right hemicolectomy, ileocolic anastamosis * Sepsis * Intraabdominal abscess w/?perforation vs necrotic tumor * Hypernatermia * Hypertension Plan: * Renal function was improving, she is volume deplete * d5w for one liter * follow up am lytes * Hypernatremia noted, gentle ivfs prn D5W * Replete K prn * Abx per ID * Transfuse pRBC per primary team * Consultants' recommendations reviewed * Avoid nephrotoxins * Dose medications for renal function Subjective Date of service: 08/17/18 Principal diagnosis: colon ca Interval history: resting in bed today Objective - Exam Narrative Exam: General appearance: well-developed, well-nourished EENT: ATNC Respiratory: Present: Decreased Breath Sounds Cardiology: regular, S1S2 Gastrointestinal: hypoactive bowel sounds Integumentary: warm and dry Neurologic: no focal deficit Psychiatric: cooperative - Vital Signs Vital signs: Vital Signs - 12hr 08/17/18 08/17/18 08/17/18 02:03 02:46 07:49 Temperature 98.3 F Pulse Rate 86 88 Pulse Rate [ 82 Anterior Bilateral Throughout] Pulse Rate [ 84 Bilateral] Pulse Rate [ From Monitor] Respiratory 20 Rate Respiratory 16 Rate [Anterior Bilateral Throughout] Respiratory 16 Rate [Bilateral ] Blood Pressure 150/69 143/61 O2 Sat by Pulse 92 Oximetry 08/17/18 08/17/18 08/17/18 07:50 08:13 08:14 Temperature 97.9 F Pulse Rate 89 Pulse Rate [ Anterior Bilateral Throughout] Pulse Rate [ Bilateral] Pulse Rate [ 82 From Monitor] Respiratory 20 20 Rate Respiratory Rate [Anterior Bilateral Throughout] Respiratory Rate [Bilateral ] Blood Pressure 141/48 O2 Sat by Pulse 95 95 95 Oximetry 08/17/18 08/17/18 10:08 10:13 Temperature Pulse Rate Pulse Rate [ Anterior Bilateral Throughout] Pulse Rate [ Bilateral] Pulse Rate [ From Monitor] Respiratory Rate Respiratory Rate [Anterior Bilateral Throughout] Respiratory Rate [Bilateral ] Blood Pressure 156/79 156/79 O2 Sat by Pulse Oximetry - Lab 08/16/18 04:06 08/17/18 05:27 Most recent lab results Calcium 8.2 mg/dL (8.4-10.2) L 08/17/18 05:27 Phosphorus 3.60 mg/dL (2.5-4.5) 08/14/18 04:32 Magnesium 2.00 mg/dL (1.7-2.3) 08/14/18 04:32 Medications & Allergies - Medications Allergies/Adverse Reactions: Allergies No Known Allergies Allergy (Unverified 07/18/18 20:42) Home Medications: Home Medications Medication Instructions Recorded Confirmed Last Taken Type Furosemide [Lasix] 20 mg PO DAILY 07/19/18 07/19/18 07/18/18 History Insulin Aspart [Novolog Flexpen] 100 unit SQ TID 07/19/18 07/19/18 07/18/18 History Losartan Potassium [Cozaar] 50 mg PO DAILY 07/19/18 07/19/18 07/18/18 History Metoprolol Xl [Metoprolol 25 mg PO QDAY 07/19/18 07/19/18 07/18/18 History SUCCINATE ER TAB] Naproxen 500 mg PO BID 07/19/18 07/19/18 07/18/18 History Ranitidine HCl [Acid Control] 150 mg PO BID 07/19/18 07/19/18 07/18/18 History Active Medications: Generic Name Dose Route Start Last Admin Trade Name Freq PRN Reason Stop Dose Admin Acetaminophen/Hydrocodone Bitart 1 each 08/15/18 07:33 08/17/18 10:02 [place] 5/325 PO 1 each Q4H PRN Administration Pain, Moderate (4-6) Albuterol 2.5 mg 07/24/18 20:13 07/24/18 20:31 Proventil IH 2.5 mg Q4HRT PRN Administration Shortness Of Breath Albuterol/Ipratropium 1 ampul 07/25/18 14:00 08/17/18 07:49 Duoneb *Not For Prn Use* IH 1 ampul TIDRT TRINY Administration Amlodipine Besylate 10 mg 08/09/18 16:00 08/17/18 10:08 Norvasc PO 10 mg QDAY TRINY Administration Clonidine HCl 0.3 mg 07/25/18 10:00 08/15/18 09:06 Catapres-Tts Patch TD 0.3 mg Mo TRINY Administration Dextrose 50 ml 07/19/18 02:51 D50w (25gm) Syringe IV PRN PRN Hypoglycemia Ferrous Sulfate 325 mg 08/15/18 10:00 08/17/18 10:01 Feosol PO 325 mg BID TRINY Administration Hydralazine HCl 20 mg 08/09/18 14:00 08/17/18 10:13 Apresoline IV 20 mg Q6H TRINY Administration Dextrose 1,000 mls @ 75 mls/hr 08/17/18 13:00 D5w IV 08/18/18 13:00 DIRECT [facility] Insulin Glargine 16 units 08/16/18 14:00 08/17/18 10:18 Lantus SUB-Q Not Given DAILY [facility] Insulin Human Lispro 0 unit 08/12/18 12:00 08/17/18 05:50 Humalog SUB-Q Not Given Q6HR [facility] Protocol Labetalol HCl 10 mg 07/26/18 12:37 08/08/18 05:06 Normodyne IV 10 mg Q4H PRN Administration Blood Pressure Multi-Ingred Cream/Lotion/Oil/Oint 1 applic 08/01/18 11:56 Artificial Tears Ophth Oint OU Q4HR PRN Dry Eye(s) Pantoprazole Sodium 40 mg 08/15/18 10:00 08/17/18 10:01 Protonix PO 40 mg DAILY TRINY Administration Polyethylene Glycol 17 gm 08/16/18 12:59 Miralax 3350 PO QDAY PRN Constipation
[2018-08-17] MEDS: D5W 1,000 ML IV SCH (14:48)
--- NOTE | 2018-08-17 17:55 | Progress Note ---
Assessment and Plan /Bowel perforation with suspected Tumor Necrosis due to Stage IV Adenocarcinoma, - s/p surgery 08/01/18, intubated for surgery, s/p extubated 08/02/18: continue 02 support, started TPN on 07/23/[address] Braden General Surgeon till 08/15/18. Now tolerating diet, off TPN /Hypernatremia - resolved now, likely from dehydration /Hypertensive urgency, Bp controlled on the following: - catapress patch, norvasc, also use iv hydralazine and iv labetalol as needed /ARF, ATN suspected: Nephrology following, improved /Recurrent falls with episodes of hypoglycemia: held DM medication(s), treated with dextrose, following accuchecks /Sepsis with perforated bowel from colon cancer s/p surgery, ID following, completed abx treatment - completed IV Cefepime and Flagyl x 15 days - then switched to IV zosyn 08/03/2018 end date 08/08/18, given worsening renal function and high risk of neurotoxicity from Cefepime in the setting of renal failure, elderly patient /Acute metabolic encephalopathy: due to hypoglycemia and sepsis, resolved /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: vascular input noted, no intervention needed at this time /IDDM: restarted insulin coverage, BG much stable now /DVT/GI prophylaxis: sq heparin, IV ppi Full code Disposition: cont inpatient care, pending LTACH vs SNF placement Brief History: The patient is an 87-year-old female with diabetes mellitus, congestive heart failure, HTN who presented to the emergency room with some altered mental status and having multiple falls. She also had some nausea and vomiting and complained of abdominal pain. In the emergency room, she underwent a CT of the abdomen and pelvis which was concerning for possible perforated appendicitis versus diverticulitis versus phlegmon. She was admitted with concerns for sepsis and started empirically on IV antibiotics. She was initially managed medically, then has surgery on 08/01/[address] Wooten with Exploratory laparotomy, lysis of extensive adhesion, right hemicolectomy with ileocolic anastomosis. Also noted A very large mass extending outside of the colon into the retroperitoneum in the area of the hepatic flexure. Placed on TPN following surgery, now tolerating Po diet. Stopped TPN, need placement. Hospitalist Physical Gen: WDWN, NAD, Awake, Alert, Orientated x 1 HEENT: NCAT, EOMI, PERRL, OP Clear Neck: supple, no adenopathy, no thyromegaly, no JVD CVS/Heart: RRR, normal S1S2, pulses present bilaterally Chest/Lungs: diminished bs bilateral, Symmetrical chest expansion, good air entry bilaterally GI/Abdomen: soft diffusely tender, dressing intact, good bowel sounds, no guarding or rebound /Bladder: no suprapubic tenderness, no CVA or paraspinal tenderness Extermity/Skin: no c/c/e, no obvious rash MSK: FROM x 4 Neuro: CN 2-12 grossly intact, no new focal deficits Psych: calm Subjective Date of service: 08/17/18 Principal diagnosis: colon ca Interval history: Pt seen and examined, tolerating po diet, off TPN resting on bed, denies any acute issue, family at bedside Objective - Constitutional Vitals: Vital Signs - 12hr 08/17/18 08/17/18 08/17/18 07:49 07:50 08:13 Temperature Pulse Rate Pulse Rate [ 82 Anterior Bilateral Throughout] Pulse Rate [ 84 Bilateral] Pulse Rate [ 82 From Monitor] Respiratory 20 Rate Respiratory 16 Rate [Anterior Bilateral Throughout] Respiratory 16 Rate [Bilateral ] Blood Pressure O2 Sat by Pulse 95 95 Oximetry 08/17/18 08/17/18 08/17/18 08:14 10:08 10:13 Temperature 97.9 F Pulse Rate 89 Pulse Rate [ Anterior Bilateral Throughout] Pulse Rate [ Bilateral] Pulse Rate [ From Monitor] Respiratory 20 Rate Respiratory Rate [Anterior Bilateral Throughout] Respiratory Rate [Bilateral ] Blood Pressure 141/48 156/79 156/79 O2 Sat by Pulse 95 Oximetry 08/17/18 08/17/18 13:29 13:46 Temperature 97.5 F L Pulse Rate 89 Pulse Rate [ 80 Anterior Bilateral Throughout] Pulse Rate [ 77 Bilateral] Pulse Rate [ From Monitor] Respiratory 20 Rate Respiratory 16 Rate [Anterior Bilateral Throughout] Respiratory 16 Rate [Bilateral ] Blood Pressure 132/54 O2 Sat by Pulse 98 Oximetry - Labs CBC & Chem 7: 08/16/18 04:06 08/18/18 04:26 Labs: Abnormal lab results 08/17/18 08/17/18 08/17/18 Range/Units 05:27 11:50 17:41 Sodium 146 H (137-145) mmol/L Chloride 112.1 H (98-107) mmol/L BUN 31 H (7-17) mg/dL POC Glucose 111 H 130 H (70-105) Calcium 8.2 L (8.4-10.2) mg/dL
[2018-08-18] MEDS: HumaLOG SUB-Q SCH ×3 (00:04→12:38)
[2018-08-18] MEDS: APRESOLINE IV SCH ×2 (03:36→09:33)
[2018-08-18] MEDS: D5W 1,000 ML IV SCH (03:41)
[2018-08-18 05:26] LABS: Calcium 7.7 mg/dL (8.4-10.2)
--- NOTE | 2018-08-18 07:51 | Hem/Onc Progress Note ---
Assessment and Plan 1. T4a N0 Mx adenocarcinoma.bowel perforation, hence labeled as stage 4. 2. A 12 lymph nodes were negative. 3. History of diabetes. 4. History of hypertension. 5. History of fall. 6. History of metabolic encephalopathy. 7. 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 8. History of respiratory failure. 9. History of renal impairment. 10. As per the nursing staff, the patient is DNR. The patient received blood transfusion for anemia. 11. The patient is elderly. 12. As per the information, the patient had bowel perforation, hence labeled as stage 4. 13. The patient was intubated at one time during this admission. 14. I will follow the patient. d/w dr meza d/w family pt was using a walker before coming if pts performance improves - willl look into immune based or targetted therapy abdo drain+ 08/08 - CEA 5.6 08/09 - pt on TPN - will await improvement in pts performance status to decide options 08/10 - pt eating placement being looked into 08/11- pt had a BM - d/w surgical team iv iron 08/12 - still on TPN eating better OP follow up an option 08/13 - d/w multiple family members - who were present 08/14 - d/w RN - pt on TPN and some orally - sx team following 08/15 - no major issues - eating better - placement pending 08/17 - off TPN -eating - had BM placement eval 08/18/2018 c/o upper abdo pain - pt says no BM - I d/w RN - Patient Problems (1) Colon cancer Current Visit: Yes Status: Acute Subjective Date of service: 08/18/18 Principal diagnosis: colon ca Interval history: pt c/o abdo pain Objective - Constitutional Vitals: Last Vital Signs Temp 98.1 F 08/18/18 02:17 Pulse 85 08/18/18 03:36 Resp 20 08/18/18 02:17 BP 145/64 08/18/18 03:36 Pulse Ox 96 08/18/18 02:17 Pain Intensity (0-10): 2/10 (abdo) General appearance: mild distress Performance status: 4-completely disabled - EENT Eyes: EOM intact ENT: hearing intact Lymph node exam: negative cervical, negative supraclavicular - Respiratory Respiratory effort: Positive: normal Respiratory: bilateral: CTA - Cardiovascular Heart Sounds: Present: S1 & S2 Extremities: normal temperature - Gastrointestinal General gastrointestinal: Present: soft, other (s/p sx) Rectal Exam: deferred - Genitourinary Female genitourinary: Present: deferred - Integumentary Integumentary: warm - Musculoskeletal Musculoskeletal: strength equal bilaterally - Neurologic Neurologic: moves all extremities - Labs Lab Results: Laboratory Results - last 24 hr 08/17/18 08/17/18 08/17/18 05:27 10:21 11:50 Sodium 146 H Potassium 4.7 Chloride 112.1 H Carbon Dioxide 23 Anion Gap 16 BUN 31 H Creatinine 1.2 Estimated GFR 52 BUN/Creatinine Ratio 26 Glucose 71 POC Glucose 96 111 H Calcium 8.2 L 08/17/18 08/17/18 08/18/18 17:41 23:59 04:26 Sodium 142 Potassium 4.2 Chloride 110.9 H Carbon Dioxide 23 Anion Gap 12 BUN 21 H Creatinine 1.1 Estimated GFR 57 BUN/Creatinine Ratio 19 Glucose 71 POC Glucose 130 H 165 H Calcium 7.7 L 08/18/18 05:53 Sodium Potassium Chloride Carbon Dioxide Anion Gap BUN Creatinine Estimated GFR BUN/Creatinine Ratio Glucose POC Glucose 80 Calcium Medications & Allergies - Medications Allergies/Adverse Reactions: Allergies No Known Allergies Allergy (Unverified 07/18/18 20:42) Home Medications: Home Medications Medication Instructions Recorded Confirmed Last Taken Type Furosemide [Lasix] 20 mg PO DAILY 07/19/18 07/19/18 07/18/18 History Insulin Aspart [Novolog Flexpen] 100 unit SQ TID 07/19/18 07/19/18 07/18/18 History Losartan Potassium [Cozaar] 50 mg PO DAILY 07/19/18 07/19/18 07/18/18 History Metoprolol Xl [Metoprolol 25 mg PO QDAY 07/19/18 07/19/18 07/18/18 History SUCCINATE ER TAB] Naproxen 500 mg PO BID 07/19/18 07/19/18 07/18/18 History Ranitidine HCl [Acid Control] 150 mg PO BID 07/19/18 07/19/18 07/18/18 History Active Medications: Generic Name Dose Route Start Last Admin Trade Name Freq PRN Reason Stop Dose Admin Acetaminophen/Hydrocodone Bitart 1 each 08/15/18 07:33 08/17/18 21:46 [place] 5/325 PO 1 each Q4H PRN Administration Pain, Moderate (4-6) Albuterol 2.5 mg 07/24/18 20:13 07/24/18 20:31 Proventil IH 2.5 mg Q4HRT PRN Administration Shortness Of Breath Albuterol/Ipratropium 1 ampul 07/25/18 14:00 08/17/18 21:24 Duoneb *Not For Prn Use* IH Not Given TIDRT TRINY Amlodipine Besylate 10 mg 08/09/18 16:00 08/17/18 10:08 Norvasc PO 10 mg QDAY TRINY Administration Clonidine HCl 0.3 mg 07/25/18 10:00 08/15/18 09:06 Catapres-Tts Patch TD 0.3 mg Mo TRINY Administration Dextrose 50 ml 07/19/18 02:51 D50w (25gm) Syringe IV PRN PRN Hypoglycemia Ferrous Sulfate 325 mg 08/15/18 10:00 08/17/18 21:43 Feosol PO 325 mg BID TRINY Administration Hydralazine HCl 20 mg 08/09/18 14:00 08/18/18 03:36 Apresoline IV 20 mg Q6H [facility]INY Administration Dextrose 1,000 mls @ 75 mls/hr 08/17/18 13:00 08/18/18 03:41 D5w IV 08/18/18 13:00 75 mls/hr DIRECT TRINY Administration Insulin Glargine 16 units 08/16/18 14:00 08/17/18 10:18 Lantus SUB-Q Not Given DAILY [facility] Insulin Human Lispro 0 unit 08/12/18 12:00 08/18/18 06:14 Humalog SUB-Q Not Given Q6HR [facility] Protocol Labetalol HCl 10 mg 07/26/18 12:37 08/08/18 05:06 Normodyne IV 10 mg Q4H PRN Administration Blood Pressure Multi-Ingred Cream/Lotion/Oil/Oint 1 applic 08/01/18 11:56 Artificial Tears Ophth Oint OU Q4HR PRN Dry Eye(s) Pantoprazole Sodium 40 mg 08/15/18 10:00 08/17/18 10:01 Protonix PO 40 mg DAILY TRINY Administration Polyethylene Glycol 17 gm 08/16/18 12:59 Miralax 3350 PO QDAY PRN Constipation
[2018-08-18 08:03] VITALS: BP 165/62
[2018-08-18] MEDS: LANTUS SUB-Q SCH (09:33)
[2018-08-18] MEDS: NORVASC PO SCH (09:33)
[2018-08-18] MEDS: FEOSOL PO SCH (09:34)
[2018-08-18] MEDS: PROTONIX PO SCH (09:34)
[2018-08-18] MEDS: DUONEB *Not for PRN Use IH SCH ×2 (10:53→15:33)
--- NOTE | 2018-08-18 11:02 | Discharge Summary ---
Providers - Providers Date of Admission: 07/19/18 08:27 Date of discharge: 08/18/18 Attending physician: CHELSEA REYNA 07/19/18 02:35 Consult to Physician [CONS] Routine Comment: called ans. serv./sonny Consulting Provider: JENNY WOOTEN Physician Instructions: Reason For Exam: appendicitis with perforation 07/19/18 03:21 Consult to Physician [CONS] Routine Comment: called answ. serv./sonny Consulting Provider: MICKI GEE Physician Instructions: please call her after 7am Reason For Exam: sepsis, bowel perforation 07/19/18 13:09 Consult to Physician [CONS] Routine Comment: called answ. serv./sonny Consulting Provider: EYAD GREENE Physician Instructions: Reason For Exam: mural thrumbus 07/19/18 13:35 Consult to Physician [CONS] Routine Comment: called answ. serv./sonny Consulting Provider: BETSY BEASLEY Physician Instructions: Reason For Exam: appendicitis 07/25/18 09:54 Consult to Physician [CONS] Routine Comment: Consulting Provider: MARIA EUGENIA FANG Physician Instructions: Reason For Exam: Bronchospasm 07/25/18 14:27 Consult to Physician [CONS] Routine Comment: Consulting Provider: MAKENZIE WILD Physician Instructions: Reason For Exam: Evaluate for CHF and uncontrolled hypertension 07/26/18 13:42 Consult to Physician [CONS] Routine Comment: Consulting Provider: LONDON NULL Physician Instructions: Reason For Exam: colonoscopy/ biopsy cecal mass 07/27/18 13:22 Consult to Physician [CONS] Routine Comment: Consulting Provider: DEB NAYAK Physician Instructions: Reason For Exam: ureteral stents placement pre colectomy 08/01/18 10:47 Consult to Physician [CONS] Routine Comment: Consulting Provider: JUSTINO LOPEZ Physician Instructions: Reason For Exam: already a pt of the group 08/01/18 11:56 Consult to Dietitian/Nutrition [CONS] Routine Physician Instructions: Reason For Exam: Reason for Consult: Evaluate nutritional intake 08/02/18 10:45 Physical Therapy Evaluation and Treat [CONS] Routine Comment: Reason For Exam: debility 08/03/18 06:49 Consult to Wound/ET Nurse [CONS] Routine Reason For Exam: begin local wd care, wed am 08/03/18 12:31 Physical Therapy Evaluation and Treat [CONS] Routine Comment: Reason For Exam: sit in chair, ambulate as iron 08/03/18 12:36 Consult to Physician [CONS] Routine Comment: Consulting Provider: THERON JULES Physician Instructions: Reason For Exam: rising BUN & creatinine - dehydration? 08/04/18 13:49 Consult to Physician [CONS] Routine Comment: Consulting Provider: FITO FISHER Physician Instructions: Reason For Exam: colon cancer 08/08/18 12:18 Occupational Therapy Evaluate and Treat [CONS] Routine Comment: Reason For Exam: ADLs evaluation Physical Therapy Evaluation and Treat [CONS] Routine Comment: Reason For Exam: gait evaluation/ambulatory dysfunction 08/12/18 12:22 Consult to Wound/ET Nurse [CONS] Routine Reason For Exam: sacral wound 08/15/18 07:34 Consult to Dietitian/Nutrition [CONS] Routine Physician Instructions: Taper TPN to stop Reason For Exam: DKA Reason for Consult: Nutrition Recommendations Reason for Consult: Write/Manage TPN/PPN 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 She also had some nausea and vomiting and complained of abdominal pain. In the emergency room, she underwent a CT of the abdomen and pelvis which was concerning for possible perforated appendicitis versus diverticulitis versus phlegmon. She was admitted with concerns for sepsis and started empirically on IV antibiotics. She was initially managed medically, then has surgery on 08/01/[address] Wooten with Exploratory laparotomy, lysis of extensive adhesion, right hemicolectomy with ileocolic anastomosis. Also noted A very large mass extending outside of the colon into the retroperitoneum in the area of the hepatic flexure. Placed on TPN following surgery, now tolerating Po diet. Stopped TPN, discharge delayed for pending placement. She was then discharge to SNF in stable condition. 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 Braden General Surgeon till 08/15/18. Now tolerating diet, off TPN /Hypernatremia - resolved now, likely from dehydration /Hypertensive urgency, Bp controlled on the following: - catapress patch, norvasc, also use iv hydralazine and iv labetalol as needed /ARF, ATN suspected: Nephrology following, improved /Recurrent falls with episodes of hypoglycemia: held DM medication(s), treated with dextrose, following accuchecks /Sepsis with perforated bowel from colon cancer s/p surgery, ID following, completed abx treatment - completed IV Cefepime and Flagyl x 15 days - then switched to IV zosyn 08/03/2018 end date 08/08/18, given worsening renal function and high risk of neurotoxicity from Cefepime in the setting of renal failure, elderly patient /Acute metabolic encephalopathy: due to hypoglycemia and sepsis, resolved /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: vascular input noted, no intervention needed at this time /IDDM: restarted insulin coverage, BG much stable now /DVT/GI prophylaxis: sq heparin, ppi Full code Disposition: SNF placement Hospitalist Physical Gen: WDWN, NAD, Awake, Alert, Orientated x 1 HEENT: NCAT, EOMI, PERRL, OP Clear Neck: supple, no adenopathy, no thyromegaly, no JVD CVS/Heart: RRR, normal S1S2, pulses present bilaterally Chest/Lungs: diminished bs bilateral, Symmetrical chest expansion, good air entry bilaterally GI/Abdomen: mild tender, dressing intact, good bowel sounds, no guarding or rebound /Bladder: no suprapubic tenderness, no CVA or paraspinal tenderness Extermity/Skin: no c/c/e, no obvious rash MSK: FROM x 4 Neuro: CN 2-12 grossly intact, no new focal deficits Psych: calm Disposition: DC/[place]-03 SNF W [facility] Time spent for discharge: 34 minutes Core Measure Documentation - Palliative Care Palliative Care/ Comfort Measures: Not Applicable - Core Measures Any of the following diagnoses?: none Exam - Constitutional Vitals: Temp Pulse Resp BP Pulse Ox 98.4 F 90 20 165/62 97 08/18/18 07:39 08/18/18 10:53 08/18/18 10:53 08/18/18 09:33 08/18/18 07:39 Plan Activity: up only with assistance, fall precautions Weight Bearing Status: Non-Weight Bearing Diet: other (GI soft diet) Follow up with: PRIMARY CARE, [Primary Care Provider] - 3-5 Days Prescriptions: HYDROcodone/APAP 5-325 [[place] 5-325 mg TAB] 1 each PO Q4H PRN #30 tablet PRN Reason: Pain, Moderate (4-6)
[2018-08-18] MEDS: NORCO 5/325 PO PRN (12:46)
== END 2018-08-18 13:00 | DRG 853 ==
LOC: ED 20:21 → 2B-ACE 07-19 08:27 → IMCU 07-19 20:17 → CC1 08-01 11:30 → IMCU 08-02 12:15 → 2B-ACE 08-06 14:51
PROVIDERS: ADMIT Internal Medicine; ATTEND Internal Medicine
PROC: 3E0234Z Introduction of Serum, Toxoid and Vaccine into Muscle, Percutaneous Approach (ICD-10-PCS; 2018-07-20)
PROC: 0DJD8ZZ Inspection of Lower Intestinal Tract, Via Natural or Artificial Opening Endoscopic (ICD-10-PCS; 2018-07-22)
PROC: 05HY33Z Insertion of Infusion Device into Upper Vein, Percutaneous Approach (ICD-10-PCS; 2018-07-22)
PROC: 3E0436Z Introduction of Nutritional Substance into Central Vein, Percutaneous Approach (ICD-10-PCS; 2018-07-23)
PROC: 02HV33Z Insertion of Infusion Device into Superior Vena Cava, Percutaneous Approach (ICD-10-PCS; 2018-07-26)
PROC: 30233N1 Transfusion of Nonautologous Red Blood Cells into Peripheral Vein, Percutaneous Approach (ICD-10-PCS; 2018-07-29)
PROC: 0DNU0ZZ Release Omentum, Open Approach (ICD-10-PCS; principal; 2018-08-01)
PROC: 0DTF4ZZ Resection of Right Large Intestine, Percutaneous Endoscopic Approach (ICD-10-PCS; 2018-08-01)
PROC: 5A1935Z Respiratory Ventilation, Less than 24 Consecutive Hours (ICD-10-PCS; 2018-08-01)
PROC: 0BH18EZ Insertion of Endotracheal Airway into Trachea, Via Natural or Artificial Opening Endoscopic (ICD-10-PCS; 2018-08-01)
PROC: 0T788DZ Dilation of Bilateral Ureters with Intraluminal Device, Via Natural or Artificial Opening Endoscopic (ICD-10-PCS; 2018-08-01)
PROC: 0DNW0ZZ Release Peritoneum, Open Approach (ICD-10-PCS; 2018-08-01)
PROC: 0DNB0ZZ Release Ileum, Open Approach (ICD-10-PCS; 2018-08-01)
PROC: 4A033R1 Measurement of Arterial Saturation, Peripheral, Percutaneous Approach (ICD-10-PCS; 2018-08-02)
DX: A41.9 Sepsis, unspecified organism (principal); G93.41 Metabolic encephalopathy; N17.0 Acute kidney failure with tubular necrosis; J96.01 Acute respiratory failure with hypoxia; E87.0 Hyperosmolality and hypernatremia; I74.19 Embolism and thrombosis of other parts of aorta; K57.20 Diverticulitis of large intestine with perforation and abscess without bleeding; C18.2 Malignant neoplasm of ascending colon; E11.649 Type 2 diabetes mellitus with hypoglycemia without coma; I11.0 Hypertensive heart disease with heart failure; N73.6 Female pelvic peritoneal adhesions (postinfective); K64.1 Second degree hemorrhoids; I16.0 Hypertensive urgency; E83.51 Hypocalcemia; W18.30XA Fall on same level, unspecified, initial encounter; Y93.89 Activity, other specified; Y99.8 Other external cause status; Y92.098 Other place in other non-institutional residence as the place of occurrence of the external cause; Z90.710 Acquired absence of both cervix and uterus; Z87.891 Personal history of nicotine dependence; Z83.3 Family history of diabetes mellitus; Z82.49 Family history of ischemic heart disease and other diseases of the circulatory system; Z80.0 Family history of malignant neoplasm of digestive organs; Z79.4 Long term (current) use of insulin; Z23 Encounter for immunization
CPT/HCPCS: 36415; 36600; 70450; 71045; 71275; 74018; 74176; 74177; 74270; 80048; 80053; 81001; 82140; 82378; 82550; 82553; 82607; 82728; 82747; 82803; 82962; 83550; 83735; 83880; 84100; 84484; 85007; 85025; 85027; 85610; 85730; 86140; 86850; 86900; 86901; 86920; 87040; 88305; 88307; 88309; 88341; 88342; 90686; 90732; 93005; 93010; 93306; 94002; 94003; 94640; 94760; 96365; 96367; 96368; 96375; G0378; C1726; C1758; C1769; C9113; J0360; J0690; J0692; J1170; J1644; J1815; J1940; J2270; J2370; J2405; J2543; J2704; J2916; J3010; J3480; J7030; J7040; J7050; J7070; J7120; P9016; P9047; Q9967

== ENCOUNTER 2018-10-20 12:59 | Outpatient (CLI) | payer MEDICARE ==
--- NOTE | 2018-10-31 13:31 | PET Report ---
PET SB TO MT INITIAL: HISTORY: Initial staging of colon cancer. TECHNIQUE: 13.0 millicuries F-18 FDG was administered intravenously. Noncontrast CT images and PET images were obtained from the skull base to the proximal thighs. Fused images were reviewed on a workstation. The patient's blood glucose level measured 82. COMPARISON: CT abdomen pelvis without contrast dated 07/25/18. FINDINGS: BRAIN: physiologic FDG uptake in the imaged brain. NECK: physiologic FDG uptake. MEDIASTINUM: physiologic FDG uptake. LUNGS: physiologic FDG uptake. PLEURA/PERICARDIUM: physiologic FDG uptake. THORACIC LYMPH NODES: physiologic FDG uptake. HEPATOBILIARY: physiologic FDG uptake. Mean liver SUV measures 3.6. PANCREAS: physiologic FDG uptake. SPLEEN: physiologic FDG uptake. ADRENAL GLANDS: physiologic FDG uptake. KIDNEYS/RENAL COLLECTING SYSTEMS: physiologic FDG uptake. BOWEL/MESENTERY: Recent surgical changes and resection of an ascending colon mass is demonstrated. Just lateral to the surgical site a 4.8 x 3.2 cm soft tissue density mass is identified with Max SUV measuring 11.9. This presumably represents residual or recurrent tumor. No additional GI mass is identified. There are a few subcentimeter lymph nodes adjacent to the surgical site but no hypermetabolic activity. PELVIC VISCERA: physiologic FDG uptake. Hysterectomy changes ABDOMINAL/PELVIC LYMPH NODES: physiologic FDG uptake. MUSCULOSKELETAL: physiologic FDG uptake. IMPRESSION: A 4.8 x 3.2 cm hypermetabolic soft tissue density mass is identified in the right abdomen adjacent to the surgical site in the proximal colon consistent with residual or recurrent disease. No evidence for hepatic, anitha or pulmonary metastases. Please note this report was delayed due to technical factors at the hospital. These findings were discussed with Dr. Jeter on 10/31/18 at 1330 hrs.
== END 2018-10-20 13:00 | disposition home or self-care (01) ==
LOC: PET 12:59
PROVIDERS: ATTEND Internal Medicine Hematology & Oncology
DX: C18.0 Malignant neoplasm of cecum (principal); I11.0 Hypertensive heart disease with heart failure; I50.9 Heart failure, unspecified; E11.9 Type 2 diabetes mellitus without complications; Z87.891 Personal history of nicotine dependence; Z90.710 Acquired absence of both cervix and uterus
CPT/HCPCS: 82962; A9552

== ENCOUNTER 2019-03-14 12:11 | Emergency (ER) | payer MEDICARE ==
--- NOTE | 2019-03-14 12:39 | Event Note ---
ED Screening Note Date of service: 03/14/19 Time: 12:35 ED Screening Note: 88 y o female sent from her PCP today for eval of left leg edema PMH: CHF, colon cancer: surg last year This initial assessment/diagnostic orders/clinical plan/treatment(s) is/are subject to change based on patients health status, clinical progression and re- assessment by fellow clinical providers in the ED. Further treatment and workup at subsequent clinical providers discretion. Patient/guardian urged not to elope from the ED as their condition may be serious if not clinically assessed and managed. Initial orders include: cbc,cmp,d-dimer Us doppler
[2019-03-14 13:33] LABS: Basophils # (Auto) 0.1 K/mm3 (0.0-0.1); Basophils % (Auto) 1.1 % (0.0-1.8); Eosinophils # (Auto) 0.1 K/mm3 (0.0-0.4); Hematocrit 36.7 % (30.3-42.9); Lymphocytes # (Auto) 1.8 K/mm3 (1.2-5.4); Lymphocytes % (Auto) 29.6 % (13.4-35.0); Mean Corpuscular HGB Conc 33 % (30-34); Mean Corpuscular Volume 94 fl (79-97); Monocytes # (Auto) 0.5 K/mm3 (0.0-0.8); Monocytes % (Auto) 7.6 % (0.0-7.3); Platelet Count 223 K/mm3 (140-440); Red Blood Count 3.89 M/mm3 (3.65-5.03); Red Cell Distribution Width 14.6 % (13.2-15.2)
[2019-03-14 13:53] LABS: Albumin 3.4 g/dL (3.9-5); BUN/Creatinine Ratio 18; Blood Urea Nitrogen 18 mg/dL (7-17); Hemolysis Index 160
[2019-03-14 14:36] LABS: Alanine Aminotransferase 11 units/L (7-56)
--- NOTE | 2019-03-14 15:00 | Vascular Lab Report ---
DUPLEX DOPPLER LOWER EXTREMITY VEINS, LEFT INDICATION: thigh and leg swelling. TECHNIQUE: Duplex doppler imaging was performed through the veins of the left lower extremity using venous compr ession and other maneuvers. COMPARISON: None available. FINDINGS: Common femoral vein: DVT seen Superficial femoral vein: DVT seen Popliteal vein: Negative. Calf veins: Negative. Additional findings: Thrombus is noted in the greater saphenous vein as well IMPRESSION: 1. Study is positive for DVT involving the common femoral vein, superficial femoral vein. 2. Thrombus is noted in the greater saphenous vein which is considered a superficial vein. CRITICAL RESULT: The technologist called this report to Dr. Villalpando immediately after the study was performed. Signer Name: Tae Mcdonadl MD Signed: 03/14/2019 2:55 PM Workstation Name: [id number]
--- NOTE | 2019-03-14 15:01 | Emergency Department Report ---
ED General Adult HPI - General Chief complaint: Extremity Problem,Nontraumatic Stated complaint: LEG SWOLLEN Time Seen by Provider: 03/14/19 12:35 Source: patient Mode of arrival: Wheelchair Limitations: No Limitations - History of Present Illness Initial comments: Patient presents to the emergency department with a chief complaint of left leg swelling that has been present for the last week. Patient has a history of stage IV and was sent by her physician for evaluation of a DVT. patient states she is purposely not getting treatment for her stage IV colon cancer -: Gradual Location: left, lower extremity Quality: sharp Consistency: constant Improves with: rest Worsens with: movement Associated Symptoms: denies other symptoms - Related Data Previous Rx's Medication Instructions Recorded Last Taken Type Ferrous Sulfate [Feosol 325 MG tab] 325 mg PO BID tablet 08/18/18 Unknown Rx HYDROcodone/APAP 5-325 [[place] 1 each PO Q4H PRN #30 tablet 08/18/18 Unknown Rx 5-325 mg TAB] Insulin Glargine [Lantus VIAL] 16 units SUB-Q DAILY units 08/18/18 Unknown Rx Ipratropium/Albuterol Sulfate 1 ampul IH TIDRT ampul.neb 08/18/18 Unknown Rx [DUONEB *Not for PRN Use*] Lispro Insulin [HumaLOG] 0 unit SUB-Q Q6HR units 08/18/18 Unknown Rx Metoprolol Xl [Metoprolol 50 mg PO QDAY #30 08/18/18 07/18/18 Rx SUCCINATE ER TAB] Polyethylene Glycol 3350 [Miralax 17 gm PO QDAY PRN powd.pack 08/18/18 Unknown Rx 3350] amLODIPine [Norvasc] 10 mg PO QDAY tablet 08/18/18 Unknown Rx Apixaban [Eliquis starter pack] 5 mg PO DAILY #74 tab.ds.pk 03/14/19 Unknown Rx Allergies Allergy/AdvReac Type Severity Reaction Status Date / Time No Known Allergies Allergy Unverified 07/18/18 20:42 ED Review of Systems ROS: Stated complaint: LEG SWOLLEN Other details as noted in HPI Constitutional: denies: chills, fever Eyes: denies: eye pain, eye discharge, vision change ENT: denies: ear pain, throat pain Respiratory: denies: cough, shortness of breath, wheezing Cardiovascular: denies: chest pain, palpitations Endocrine: no symptoms reported Gastrointestinal: denies: abdominal pain, nausea, diarrhea Genitourinary: denies: urgency, dysuria, discharge Musculoskeletal: denies: back pain, joint swelling, arthralgia Skin: denies: rash, lesions Neurological: denies: headache, weakness, paresthesias Psychiatric: denies: anxiety, depression Hematological/Lymphatic: denies: easy bleeding, easy bruising ED Past Medical Hx - Past Medical History Previous Medical History?: Yes Hx Hypertension: Yes (CHF, EF50-55% on Echo07/25/18) Hx Congestive Heart Failure: Yes Hx Diabetes: Yes Hx Deep Vein Thrombosis: No - Surgical History Past Surgical History?: No Hx Pacemaker: No Hx Internal Defibrillator: No - Social History Smoking Status: Former Smoker Substance Use Type: None - Medications Home Medications: Home Medications Medication Instructions Recorded Confirmed Last Taken Type Ferrous Sulfate [Feosol 325 MG tab] 325 mg PO BID tablet 08/18/18 Unknown Rx HYDROcodone/APAP 5-325 [[place] 1 each PO Q4H PRN #30 tablet 08/18/18 Unknown Rx 5-325 mg TAB] Insulin Glargine [Lantus VIAL] 16 units SUB-Q DAILY units 08/18/18 Unknown Rx Ipratropium/Albuterol Sulfate 1 ampul IH TIDRT ampul.neb 08/18/18 Unknown Rx [DUONEB *Not for PRN Use*] Lispro Insulin [HumaLOG] 0 unit SUB-Q Q6HR units 08/18/18 Unknown Rx Metoprolol Xl [Metoprolol 50 mg PO QDAY #30 08/18/18 07/19/18 07/18/18 Rx SUCCINATE ER TAB] Polyethylene Glycol 3350 [Miralax 17 gm PO QDAY PRN powd.pack 08/18/18 Unknown Rx 3350] amLODIPine [Norvasc] 10 mg PO QDAY tablet 08/18/18 Unknown Rx Apixaban [Eliquis starter pack] 5 mg PO DAILY #74 tab.ds.pk 03/14/19 Unknown Rx ED Physical Exam - General Limitations: No Limitations General appearance: alert, in no apparent distress - Head Head exam: Present: atraumatic, normocephalic - Eye Eye exam: Present: normal appearance, PERRL, EOMI - ENT ENT exam: Present: mucous membranes moist - Neck Neck exam: Present: normal inspection - Respiratory Respiratory exam: Present: normal lung sounds bilaterally. Absent: respiratory distress - Cardiovascular Cardiovascular Exam: Present: regular rate, normal rhythm. Absent: systolic murmur, diastolic murmur, rubs, gallop - GI/Abdominal GI/Abdominal exam: Present: soft, normal bowel sounds. Absent: distended, tenderness - Extremities Exam Extremities exam: Present: other (left leg is swollen and tender to palpation along the posterior aspects) - Back Exam Back exam: Present: normal inspection - Neurological Exam Neurological exam: Present: alert, oriented X3 - Psychiatric Psychiatric exam: Present: normal affect, normal mood - Skin Skin exam: Present: warm, dry, intact, normal color. Absent: rash ED Course Vital Signs 03/14/19 12:32 Temperature 98.6 F Pulse Rate 77 Respiratory 18 Rate Blood Pressure 189/160 O2 Sat by Pulse 97 Oximetry ED Medical Decision Making - Lab Data Result diagrams: 03/14/19 13:17 03/14/19 13:17 Lab Results 03/14/19 03/14/19 03/14/19 Range/Units 13:17 13:17 13:17 WBC 6.0 (4.5-11.0) K/mm3 RBC 3.89 (3.65-5.03) M/mm3 Hgb 12.0 (10.1-14.3) gm/dl Hct 36.7 (30.3-42.9) % MCV 94 (79-97) fl MCH 31 (28-32) pg MCHC 33 (30-34) % RDW 14.6 (13.2-15.2) % Plt Count 223 (140-440) K/mm3 Lymph % (Auto) 29.6 (13.4-35.0) % [place] % (Auto) 7.6 H (0.0-7.3) % Eos % (Auto) 1.0 (0.0-4.3) % Baso % (Auto) 1.1 (0.0-1.8) % Lymph # 1.8 (1.2-5.4) K/mm3 [place] # 0.5 (0.0-0.8) K/mm3 Eos # 0.1 (0.0-0.4) K/mm3 Baso # 0.1 (0.0-0.1) K/mm3 Seg Neutrophils % 60.7 (40.0-70.0) % Seg Neutrophils # 3.6 (1.8-7.7) K/mm3 D-Dimer 4300.13 H (0-234) ng/mlDDU Sodium 141 (137-145) mmol/L Potassium 4.9 (3.6-5.0) mmol/L Chloride 99.7 (98-107) mmol/L Carbon Dioxide 28 (22-30) mmol/L Anion Gap 18 mmol/L BUN 18 H (7-17) mg/dL Creatinine 1.0 (0.7-1.2) mg/dL Estimated GFR > 60 ml/min BUN/Creatinine Ratio 18 % Glucose 256 H (65-100) mg/dL Calcium 9.0 (8.4-10.2) mg/dL Total Bilirubin 0.30 (0.1-1.2) mg/dL AST 25 (5-40) units/L ALT 11 (7-56) units/L Alkaline Phosphatase 118 (35-129) units/L Total Protein 7.7 (6.3-8.2) g/dL Albumin 3.4 L (3.9-5) g/dL Albumin/Globulin Ratio 0.8 % - Medical Decision Making discussed results with pt Critical care attestation.: If time is entered above; I have spent that time in minutes in the direct care of this critically ill patient, excluding procedure time. ED Disposition Clinical Impression: DVT (deep venous thrombosis) Disposition: DC-01 TO HOME OR SELFCARE Is pt being admited?: No Does the pt Need Aspirin: No Condition: Stable Instructions: Deep Venous Thrombosis (ED) Additional Instructions: return if worse Prescriptions: Apixaban [Eliquis starter pack] 5 mg PO DAILY #74 tab.ds.pk Referrals: PRIMARY CARE, [Referring] - 3-5 Days DUKE KUMAR MD [Primary Care Provider] - 3-5 Days Time of Disposition: 15:10
[2019-03-14] MEDS ORDERED: ELIQUIS PO ONE (15:10)
[2019-03-14 15:37] VITALS: BP 179/98
== END 2019-03-14 15:37 | disposition home or self-care (01) ==
LOC: ED 12:11
DX: I82.402 Acute embolism and thrombosis of unspecified deep veins of left lower extremity (principal); I11.0 Hypertensive heart disease with heart failure; I50.9 Heart failure, unspecified; E11.9 Type 2 diabetes mellitus without complications; Z87.891 Personal history of nicotine dependence; Z79.4 Long term (current) use of insulin; Z79.899 Other long term (current) drug therapy
CPT/HCPCS: 36415; 80053; 85025; 85379

== ENCOUNTER 2019-05-04 16:41 | Emergency (ER) | payer MEDICARE ==
--- NOTE | 2019-05-04 16:56 | Emergency Department Report ---
Blank Doc - Documentation Documentation: 88-year-old female that was sent by PCP for uncontrolled HTN. This initial assessment/diagnostic orders/clinical plan/treatment(s) is/are subject to change based on patient's health status, clinical progression and re- assessment by fellow clinical providers in the ED. Further treatment and workup at subsequent clinical providers discretion. Patient/guardians urged not to elope from the ED as their condition may be serious if not clinically assessed and managed. Initial orders include: 1- Patient sent to [facility] for further evaluation and treatment 2- labs 3- UA 4- EKG
--- NOTE | 2019-05-04 17:17 | Emergency Department Report ---
ED General Adult HPI - General Chief complaint: High BP Stated complaint: HTN Time Seen by Provider: 05/04/19 16:55 Source: patient Mode of arrival: Ambulatory Limitations: No Limitations - History of Present Illness Initial comments: 88-year-old female with a history of hypertension, stage IV colon cancer not on chemotherapy or radiation presents after having elevated blood pressure while at her primary care doctor's office. She denies any chest pain or shortness of breath. Patient states she's been compliant with her amlodipine furosemide and metoprolol therapy. Patient is also on Eliquis after having a DVT. Patient denies any focal weakness or slurred speech. Patient denies any chest pain or shortness of breath. Patient states her blood pressure was in the 220s over 120 range while in the office. Patient was given clonidine therapy while in the office setting. - Related Data Previous Rx's Medication Instructions Recorded Last Taken Type Ferrous Sulfate [Feosol 325 MG tab] 325 mg PO BID tablet 08/18/18 Unknown Rx HYDROcodone/APAP 5-325 [[place] 1 each PO Q4H PRN #30 tablet 08/18/18 Unknown Rx 5-325 mg TAB] Insulin Glargine [Lantus VIAL] 16 units SUB-Q DAILY units 08/18/18 Unknown Rx Ipratropium/Albuterol Sulfate 1 ampul IH TIDRT ampul.neb 08/18/18 Unknown Rx [DUONEB *Not for PRN Use*] Lispro Insulin [HumaLOG] 0 unit SUB-Q Q6HR units 08/18/18 Unknown Rx Metoprolol Xl [Metoprolol 50 mg PO QDAY #30 08/18/18 07/18/18 Rx SUCCINATE ER TAB] Polyethylene Glycol 3350 [Miralax 17 gm PO QDAY PRN powd.pack 08/18/18 Unknown Rx 3350] amLODIPine [Norvasc] 10 mg PO QDAY tablet 08/18/18 Unknown Rx Apixaban [Eliquis starter pack] 5 mg PO DAILY #74 tab.ds.pk 03/14/19 Unknown Rx Allergies Allergy/AdvReac Type Severity Reaction Status Date / Time No Known Allergies Allergy Unverified 07/18/18 20:42 ED Review of Systems ROS: Stated complaint: HTN Other details as noted in HPI Constitutional: denies: chills, fever Eyes: denies: eye pain, eye discharge, vision change ENT: denies: ear pain, throat pain Respiratory: denies: cough, shortness of breath, wheezing Cardiovascular: denies: chest pain, palpitations Endocrine: no symptoms reported Gastrointestinal: denies: abdominal pain, nausea, diarrhea Genitourinary: denies: urgency, dysuria, discharge Musculoskeletal: denies: back pain, joint swelling, arthralgia Skin: denies: rash, lesions Neurological: denies: headache, weakness, paresthesias Psychiatric: denies: anxiety, depression Hematological/Lymphatic: denies: easy bleeding, easy bruising ED Past Medical Hx - Past Medical History Previous Medical History?: Yes Hx Hypertension: Yes (CHF, EF50-55% on Echo07/25/18) Hx Congestive Heart Failure: Yes Hx Diabetes: Yes Hx Deep Vein Thrombosis: No - Surgical History Past Surgical History?: No Hx Pacemaker: No Hx Internal Defibrillator: No - Social History Smoking Status: Never Smoker - Medications Home Medications: Home Medications Medication Instructions Recorded Confirmed Last Taken Type Ferrous Sulfate [Feosol 325 MG tab] 325 mg PO BID tablet 08/18/18 Unknown Rx HYDROcodone/APAP 5-325 [[place] 1 each PO Q4H PRN #30 tablet 08/18/18 Unknown Rx 5-325 mg TAB] Insulin Glargine [Lantus VIAL] 16 units SUB-Q DAILY units 08/18/18 Unknown Rx Ipratropium/Albuterol Sulfate 1 ampul IH TIDRT ampul.neb 08/18/18 Unknown Rx [DUONEB *Not for PRN Use*] Lispro Insulin [HumaLOG] 0 unit SUB-Q Q6HR units 08/18/18 Unknown Rx Metoprolol Xl [Metoprolol 50 mg PO QDAY #30 08/18/18 07/19/18 07/18/18 Rx SUCCINATE ER TAB] Polyethylene Glycol 3350 [Miralax 17 gm PO QDAY PRN powd.pack 08/18/18 Unknown Rx 3350] amLODIPine [Norvasc] 10 mg PO QDAY tablet 08/18/18 Unknown Rx Apixaban [Eliquis starter pack] 5 mg PO DAILY #74 tab.ds.pk 03/14/19 Unknown Rx ED Physical Exam - General Limitations: No Limitations General appearance: alert, in no apparent distress - Head Head exam: Present: atraumatic, normocephalic - Eye Eye exam: Present: normal appearance - ENT ENT exam: Present: mucous membranes moist - Neck Neck exam: Present: normal inspection - Respiratory Respiratory exam: Present: normal lung sounds bilaterally. Absent: respiratory distress - Cardiovascular Cardiovascular Exam: Present: regular rate, normal rhythm. Absent: systolic murmur, diastolic murmur, rubs, gallop - GI/Abdominal GI/Abdominal exam: Present: soft, normal bowel sounds - Extremities Exam Extremities exam: Present: normal inspection - Back Exam Back exam: Present: normal inspection - Neurological Exam Neurological exam: Present: alert, oriented X3 - Psychiatric Psychiatric exam: Present: normal affect, normal mood - Skin Skin exam: Present: warm, dry, intact, normal color. Absent: rash ED Course Vital Signs 05/04/19 16:50 Temperature 98.4 F Pulse Rate 66 Respiratory 15 Rate Blood Pressure 185/78 O2 Sat by Pulse 93 Oximetry ED Medical Decision Making - Lab Data Result diagrams: 05/04/19 17:03 05/04/19 17:03 - Medical Decision Making Patient's blood pressure improved while here in emergency department. Patient has no evidence of end organ injury and has no acute neurologic complaints. Patient to be discharged to follow-up with her PCP. - Differential Diagnosis hypertensive emergency; hypertensive urgency; electrolyte abnormality; anem Critical care attestation.: If time is entered above; I have spent that time in minutes in the direct care of this critically ill patient, excluding procedure time. ED Disposition Clinical Impression: Hypertension Disposition: DC-01 TO HOME OR SELFCARE Is pt being admited?: No Does the pt Need Aspirin: No Condition: Stable Instructions: Hypertension (ED) Referrals: OPAL BHANDARI DO [Staff Physician] - 3-5 Days Time of Disposition: 18:04 Print Language: BENGAL[place]
[2019-05-04 17:22] LABS: Basophils # (Auto) 0.1 K/mm3 (0.0-0.1); Basophils % (Auto) 0.8 % (0.0-1.8); Eosinophils # (Auto) 0.1 K/mm3 (0.0-0.4); Eosinophils % (Auto) 0.9 % (0.0-4.3); Hemoglobin 12.6 gm/dl (10.1-14.3); Lymphocytes # (Auto) 2.2 K/mm3 (1.2-5.4); Lymphocytes % (Auto) 35.6 % (13.4-35.0); Mean Corpuscular HGB Conc 33 % (30-34); Mean Corpuscular Volume 93 fl (79-97); Monocytes # (Auto) 0.5 K/mm3 (0.0-0.8); Monocytes % (Auto) 7.5 % (0.0-7.3); Platelet Count 183 K/mm3 (140-440); Red Blood Count 4.07 M/mm3 (3.65-5.03); Red Cell Distribution Width 14.4 % (13.2-15.2)
[2019-05-04 17:35] LABS: INR 1.17 (0.87-1.13)
--- NOTE | 2019-05-04 17:35 | XRay Report ---
CHEST 2 VIEWS INDICATION / CLINICAL INFORMATION: Chest Pain. COMPARISON: One view of the chest from 08/06/2018. FINDINGS: SUPPORT DEVICES: None. HEART / MEDIASTINUM: The aorta is ectatic and mildly calcified. The cardiac size is normal. LUNGS / PLEURA: Bibasilar opacities likely represent atelectasis. No significant pleural effusion. No pneumothorax. ADDITIONAL FINDINGS: No significant additional findings. IMPRESSION: 1. No acute abnormality of the chest. 2. Probable bibasilar atelectasis. Signer Name: Curt Ashby MD Signed: 05/04/2019 5:30 PM Workstation Name: [id number]
[2019-05-04 17:36] LABS: Partial Thromboplastin Time 29.9 Sec. (24.2-36.6)
[2019-05-04 17:38] LABS: Albumin 3.6 g/dL (3.9-5); BUN/Creatinine Ratio 23; Blood Urea Nitrogen 18 mg/dL (7-17); Calcium 8.8 mg/dL (8.4-10.2); Hemolysis Index 10
[2019-05-04 17:42] LABS: Alanine Aminotransferase < 5 units/L (7-56)
[2019-05-04 17:57] VITALS: BP 192/73
== END 2019-05-04 18:25 | disposition home or self-care (01) ==
LOC: ED 16:41
DX: I11.0 Hypertensive heart disease with heart failure (principal); I50.9 Heart failure, unspecified; E11.9 Type 2 diabetes mellitus without complications; Z79.4 Long term (current) use of insulin; Z79.899 Other long term (current) drug therapy
CPT/HCPCS: 36415; 71046; 80053; 84484; 85025; 85610; 85730

== ENCOUNTER 2020-06-17 22:28 | Observation (INO) | payer MEDICARE ==
[2020-06-18 00:53] LABS: Hematocrit 28.9 % (30.3-42.9); Hemoglobin 8.8 gm/dl (10.1-14.3); Mean Corpuscular HGB Conc 31 % (30-34); Mean Corpuscular Volume 80 fl (79-97); Platelet Count 590 K/mm3 (140-440); Red Cell Distribution Width 18.6 % (13.2-15.2)
[2020-06-18 00:55] LABS: Albumin 2.5 g/dL (3.9-5); Calcium 8.9 mg/dL (8.4-10.2)
[2020-06-18] MEDS ORDERED: SODIUM CHLORIDE 0.9% 500 ML 500 ML IV ONE (04:29)
--- NOTE | 2020-06-18 04:38 | Event Note ---
Date: 06/18/20 The patient was evaluated in the emergency department for symptoms described in the history of present illness. He/she was evaluated in the context of the global COVID-19 pandemic, which necessitated consideration that the patient might be at risk for infection with the virus that causes COVID-19. Institutional protocols and algorithms that pertain to the evaluation of patients at risk for COVID-19 are in a state of rapid change based on information released by regulatory bodies including the CDC and federal and state organizations. These policies and algorithms were followed during the patient's care in the emergency department. Please note that these policies, procedures and recommendations changed on a rapid basis. Medical screening examination: 89-year-old female with complex past medical history, including bowel perforation with suspected tumor necrosis, secondary to stage IV adenocarcinoma, in 2019. Patient also has a history of hypertension, hypernatremia, renal insufficiency, recurrent falls, hypoglycemia, sepsis secondary to perforated bowel, metabolic encephalopathy, intramural aortic thrombus, as of 2019, nonsystemic anticoagulation, presenting today initially with a reported complaint of weakness, abdominal cramping and constipation. Laboratory studies were ordered in the waiting room. Place patient on child monitor. Obtain urinalysis, rectal temperature, additional laboratory studies. Initiate gentle IV fluids, obtain CT scan of the abdomen pelvis without IV contrast. Reassess. Vital Signs 06/17/20 23:53 Temperature 97.4 F L Pulse Rate 111 H Respiratory 16 Rate Blood Pressure 119/88 O2 Sat by Pulse 99 Oximetry Lab Results 06/18/20 06/18/20 Range/Units 00:08 00:08 WBC 31.1 H (4.5-11.0) K/mm3 RBC 3.60 L (3.65-5.03) M/mm3 Hgb 8.8 L (10.1-14.3) gm/dl Hct 28.9 L (30.3-42.9) % MCV 80 (79-97) fl MCH 24 L (28-32) pg MCHC 31 (30-34) % RDW 18.6 H (13.2-15.2) % Plt Count 590 H (140-440) K/mm3 Sodium 135 L (137-145) mmol/L Potassium 4.8 (3.6-5.0) mmol/L Chloride 98.1 (98-107) mmol/L Carbon Dioxide 23 (22-30) mmol/L Anion Gap 19 mmol/L BUN 22 H (7-17) mg/dL Creatinine 1.3 H (0.6-1.2) mg/dL Estimated GFR 47 ml/min BUN/Creatinine Ratio 17 % Glucose 222 H (65-100) mg/dL Calcium 8.9 (8.4-10.2) mg/dL Total Bilirubin 0.20 (0.1-1.2) mg/dL AST 13 (5-40) units/L ALT 7 (7-56) units/L Alkaline Phosphatase 124 (35-129) units/L Total Protein 7.7 (6.3-8.2) g/dL Albumin 2.5 L (3.9-5) g/dL Albumin/Globulin Ratio 0.5 % Lipase 7 L (13-60) units/L
[2020-06-18 05:18] LABS: Band Neutrophils # (Manual) 0.6 K/mm3; Basophils % (Manual) 0 % (0.0-1.8); Eosinophils % (Manual) 0 % (0.0-4.3); Total Cells Counted 100
--- NOTE | 2020-06-18 05:18 | XRay Report ---
CHEST 1 VIEW INDICATION: weakness. COMPARISON: 05/04/2019 FINDINGS: SUPPORT DEVICES: None. HEART: Within normal limits. LUNGS/PLEURA: Minimal streaky bibasilar airspace disease. ADDITIONAL FINDINGS: None. IMPRESSION: 1. Pulmonary findings as above. Signer Name: Pio Coleman MD Signed: 06/18/2020 5:13 AM Workstation Name: [id number]
[2020-06-18 05:19] LABS: Anisocytosis 1+; Hypochromasia 1+
[2020-06-18 05:20] LABS: Schistocytes Few
--- NOTE | 2020-06-18 05:20 | Procedure Note ---
Date of procedure: 06/18/20 Pre-op diagnosis: establish IV access Post-op diagnosis: same Procedure: Nursing team unable to establish IV access. Patient provides verbal consent for establishing IV access. Patient is prepped in typical aseptic fashion, and the left external jugular vein is identified. After typical aseptic preparation, a 20-gauge Angiocath is easily inserted into the external jugular vein, with easy pulled back of blood, and no obvious infiltration or extravasation. A luer lock is attached, line is secured to skin, patient tolerated the procedure well with and without difficulty. Anesthesia: none Surgeon: JG RAI Power Builder Developer: MARCOS AGUILERA Estimated blood loss: none Pathology: none Condition: stable Disposition: no change (still in ER)
[2020-06-18 05:21] LABS: Spherocytes Few
[2020-06-18 05:22] LABS: Platelet Estimate Consistent w Auto
[2020-06-18 06:01] LABS: Bacteria,Urine 1+ /HPF (Negative); Bilirubin,Urine NEG (Negative); Blood,Urine NEG (Negative); Color,Urine Yellow (Yellow); Hyaline Casts,Urine 4 /LPF; Mucus,Urine FEW /HPF; Protein,Urine <15 mg/dL mg/dL (Negative)
[2020-06-18 06:15] LABS: INR 1.2 (0.87-1.13)
--- NOTE | 2020-06-18 06:23 | Cat Scan Report ---
CT ABDOMEN AND PELVIS WITHOUT CONTRAST HISTORY: Patient complains of abdominal pain and weakness. Colon cancer patient with generalized abdo laura pain COMPARISON: PET scan from 10/20/2018 TECHNIQUE: CT images of the abdomen and pelvis were obtained without administration of intravenous co ntrast. All CT scans at this location are performed using CT dose reduction for ALARA by means of au tomated exposure control. FINDINGS: Lungs/bones: Mild streaky atelectasis in the lung bases. Degenerative changes of the cervical spine and pelvis with no acute osseous abnormality identified. Abdomen/pelvis: The liver, gallbladder, spleen, pancreas, and proximal GI tract appear unremarkable. There are simple bilateral renal cysts. Bilateral adrenal thickening is present. Right hemicolectomy change again noted, with stranding and bowel wall thickening at the surgical site . There are also areas of low attenuation which may reflect collections, the largest of which measure s 5.6 x 2.4 cm on image #65 of series #2. Multiple enlarged regional lymph nodes and what appear to b e soft tissue masses are also present with a grossly enlarged lymph node versus soft tissue mass andre uring 2.6 cm maximal dimension on image #89 in the right abdomen as an example. Urinary bladder is unremarkable. Uterus is surgically absent. No pelvic free fluid. There is moderate distal colonic stool burden and moderate colonic diverticulosis. IMPRESSION: 1. Probable cancer recurrence in the right mid abdomen near the anastomotic site with questionable baldwin rgical site dehiscence given vague small collections. Recommend follow-up CT with IV and oral contras t for more thorough evaluation. Delayed imaging would be helpful to determine if there is free contra st spill (i.e. evaluate possible surgical site dehiscence). Signer Name: Pio Coleman MD Signed: 06/18/2020 6:19 AM Workstation Name: [id number]
[2020-06-18] MEDS ORDERED: PIPERACIL/TAZOBACTA 4.5/NS 100 4.5 GM/100 ML VIAL IV ONE (06:38)
[2020-06-18] MEDS ORDERED: SODIUM CHLORIDE 0.9% 1000 ML IV SOLN IV ONE (06:39)
--- NOTE | 2020-06-18 06:42 | Emergency Department Report ---
ED General Adult HPI - General Chief complaint: Abdominal Pain Stated complaint: CONSTIPATION Time Seen by Provider: 06/18/20 06:05 Source: patient, EMS Mode of arrival: Wheelchair Limitations: Physical Limitation - History of Present Illness Initial comments: 89-year-old female presents to ED with nausea and decreased appetite x1 week. Patient had right hemicolectomy almost 2 years ago. Patient has history of bowel perforation with suspected tumor necrosis, secondary to stage IV adenocarcinoma, in 2019, hypertension, hypernatremia, renal insufficiency, recurrent falls, hypoglycemia, intramural aortic thrombus, as of 2019. I spoke with patient's niece, Ami Rios, who patient lives with. She reports patient has had decreased appetite for 1 week. She was seen by her PCP and given medication for constipation. Patient has not had any fever, vomiting, diarrhea, or abdominal pain. She also states that patient refused to undergo chemotherapy or radiation when she was diagnosed with her colon cancer. -: week(s) (1) Quality: other (Painless) Consistency: constant Improves with: none Worsens with: none Associated Symptoms: loss of appetite, nausea/vomiting. denies: chest pain, cough, fever/chills, shortness of breath - Related Data Previous Rx's Medication Instructions Recorded Last Taken Type Ferrous Sulfate [Feosol 325 MG tab] 325 mg PO BID tablet 08/18/18 Unknown Rx HYDROcodone/APAP 5-325 [[place] 1 each PO Q4H PRN #30 tablet 08/18/18 Unknown Rx 5-325 mg TAB] Insulin Glargine [Lantus VIAL] 16 units SUB-Q DAILY units 08/18/18 Unknown Rx Ipratropium/Albuterol Sulfate 1 ampul IH TIDRT ampul.neb 08/18/18 Unknown Rx [DUONEB *Not for PRN Use*] Lispro Insulin [HumaLOG] 0 unit SUB-Q Q6HR units 08/18/18 Unknown Rx Metoprolol Xl [Metoprolol 50 mg PO QDAY #30 08/18/18 07/18/18 Rx SUCCINATE ER TAB] amLODIPine 10 mg PO QDAY tablet 08/18/18 Unknown Rx polyethylene glycoL 3350 [Miralax 17 gm PO QDAY PRN powd.pack 08/18/18 Unknown Rx 3350] Apixaban [Eliquis starter pack] 5 mg PO DAILY #74 tab.ds.pk 08/27/19 Unknown Rx Allergies Allergy/AdvReac Type Severity Reaction Status Date / Time No Known Allergies Allergy Unverified 07/18/18 20:42 ED Review of Systems ROS: Stated complaint: CONSTIPATION Other details as noted in HPI Comment: All other systems reviewed and negative Constitutional: denies: chills, fever Respiratory: denies: cough, shortness of breath Gastrointestinal: nausea, constipation. denies: abdominal pain, vomiting, diarrhea ED Past Medical Hx - Past Medical History Previous Medical History?: Yes Hx Hypertension: Yes (CHF, EF50-55% on Echo07/25/18) Hx Congestive Heart Failure: Yes Hx Diabetes: Yes Hx Deep Vein Thrombosis: No Hx of Cancer: Yes (Abdominal) - Surgical History Past Surgical History?: Yes Hx Pacemaker: No Hx Internal Defibrillator: No Additional Surgical History: Abdominal surgery for Cancer - Social History Smoking Status: Never Smoker - Medications Home Medications: Home Medications Medication Instructions Recorded Confirmed Last Taken Type Ferrous Sulfate [Feosol 325 MG tab] 325 mg PO BID tablet 08/18/18 Unknown Rx HYDROcodone/APAP 5-325 [[place] 1 each PO Q4H PRN #30 tablet 08/18/18 Unknown Rx 5-325 mg TAB] Insulin Glargine [Lantus VIAL] 16 units SUB-Q DAILY units 08/18/18 Unknown Rx Ipratropium/Albuterol Sulfate 1 ampul IH TIDRT ampul.neb 08/18/18 Unknown Rx [DUONEB *Not for PRN Use*] Lispro Insulin [HumaLOG] 0 unit SUB-Q Q6HR units 08/18/18 Unknown Rx Metoprolol Xl [Metoprolol 50 mg PO QDAY #30 08/18/18 07/19/18 07/18/18 Rx SUCCINATE ER TAB] amLODIPine 10 mg PO QDAY tablet 08/18/18 Unknown Rx polyethylene glycoL 3350 [Miralax 17 gm PO QDAY PRN powd.pack 08/18/18 Unknown Rx 3350] Apixaban [Eliquis starter pack] 5 mg PO DAILY #74 tab.ds.pk 03/14/19 Unknown Rx ED Physical Exam - General Limitations: Physical Limitation General appearance: alert, in no apparent distress - Head Head exam: Present: atraumatic, normocephalic - Eye Eye exam: Present: normal appearance, EOMI - ENT ENT exam: Present: mucous membranes moist - Neck Neck exam: Present: normal inspection - Respiratory Respiratory exam: Present: normal lung sounds bilaterally. Absent: respiratory distress - Cardiovascular Cardiovascular Exam: Present: regular rate, normal rhythm - GI/Abdominal GI/Abdominal exam: Present: soft, other (Surgical scars present). Absent: di stended, tenderness - Extremities Exam Extremities exam: Present: normal inspection - Neurological Exam Neurological exam: Present: alert. Absent: oriented X3 (Oriented to place and self) - Psychiatric Psychiatric exam: Present: normal affect, normal mood - Skin Skin exam: Present: warm, dry, intact, normal color ED Course Vital Signs 06/17/20 06/18/20 06/18/20 23:53 04:36 04:45 Temperature 97.4 F L 97.3 F L Pulse Rate 111 H 95 H 92 H Respiratory 16 24 20 Rate Blood Pressure 119/88 131/83 Blood Pressure 117/91 [Left] O2 Sat by Pulse 99 100 94 Oximetry 06/18/20 06/18/20 06/18/20 05:01 05:31 05:51 Temperature 97.8 F Pulse Rate 91 H 89 Respiratory 29 H 31 H Rate Blood Pressure 131/83 134/64 Blood Pressure [Left] O2 Sat by Pulse 99 99 Oximetry 06/18/20 06/18/20 06/18/20 06:03 06:15 06:31 Temperature Pulse Rate 89 84 84 Respiratory 13 24 19 Rate Blood Pressure 134/64 134/64 134/64 Blood Pressure [Left] O2 Sat by Pulse 99 96 88 Oximetry 06/18/20 06/18/20 06/18/20 07:01 07:15 07:31 Temperature Pulse Rate 89 82 85 Respiratory 21 18 22 Rate Blood Pressure 134/64 134/64 134/64 Blood Pressure [Left] O2 Sat by Pulse 97 95 93 Oximetry 06/18/20 06/18/20 06/18/20 07:45 08:01 08:15 Temperature Pulse Rate 85 81 82 Respiratory 19 16 24 Rate Blood Pressure 134/64 134/64 134/64 Blood Pressure [Left] O2 Sat by Pulse 94 94 97 Oximetry 06/18/20 06/18/20 06/18/20 08:31 08:45 09:01 Temperature Pulse Rate 80 77 84 Respiratory 18 17 20 Rate Blood Pressure 134/64 134/64 134/64 Blood Pressure [Left] O2 Sat by Pulse 93 96 97 Oximetry 06/18/20 06/18/20 06/18/20 09:15 09:31 09:45 Temperature Pulse Rate 83 79 81 Respiratory 19 22 17 Rate Blood Pressure 134/101 134/101 134/101 Blood Pressure [Left] O2 Sat by Pulse 100 97 96 Oximetry 06/18/20 06/18/20 06/18/20 10:00 10:06 10:07 Temperature Pulse Rate 82 84 84 Respiratory 21 Rate Blood Pressure 164/82 164/82 164/82 Blood Pressure [Left] O2 Sat by Pulse 93 Oximetry 06/18/20 06/18/20 10:15 10:18 Temperature Pulse Rate 84 Respiratory 20 16 Rate Blood Pressure 164/82 Blood Pressure [Left] O2 Sat by Pulse 98 96 Oximetry - Consultations Consultation #1: 06/18/20 07:[address] Negro, general surgeon telecommunication equipment repairer. Pt may not be a surgical candidate, however agrees to consult on patient. ED Medical Decision Making - Lab Data Result diagrams: 06/18/20 00:08 06/18/20 00:08 - EKG Data -: EKG Interpreted by [facility] EKG shows normal: sinus rhythm, axis, intervals, QRS complexes, ST-T waves Rate: normal - EKG Data Interpretation: no acute changes - Radiology Data Radiology results: report reviewed, image reviewed - Medical Decision Making 89-year-old female presents to ED with complaint of decreased appetite and nausea x1 week. Initial vital signs show some mild tachycardia and hypothermia, with normal blood pressure. WBCs of 31, and lactic acid of 3.8. CT abdomen pelvis shows likely cancer recurrence near the anastomotic site, with possible dehiscence of the anastomosis. 30/kg dose of IV fluids given at a rate as patient does have history of CHF. Patient has been covered with Zosyn. General surgeon agrees to consult on patient, although she is likely not a surgical candidate. Patient will be admitted to hospitalist for further management. - Differential Diagnosis UTI, pneumonia, bowel obstruction Critical care attestation.: If time is entered above; I have spent that time in minutes in the direct care of this critically ill patient, excluding procedure time. ED Disposition Clinical Impression: Sepsis, Colonic mass Disposition: OP ADMIT IP TO THIS HOSP Is pt being admited?: Yes Condition: Stable Time of Disposition: 07:34
--- NOTE | 2020-06-18 08:52 | Hem/Onc Consultation ---
History of Present Illness - History of Present Illness ONC PRELIM NOTE 89YO woman with colon cancer, resected 07/2018 with bowel perforation "T4N0" no adjuvant anti-tumor therapy 10/2028 PET showed 5cm tumor PMH notable for CKD, aortic thrombus now eval for decreased appetite DATA REVIEWED BELOW Abd CT: R abd tumor and LN IMPRESSION: locally advanced and metastatic colon cancer probably not a candidate for anti-tumor therapy REC: end of life discussion, consider hospice Vital Signs Temp Pulse Resp BP Pulse Ox 97.8 F 85 22 134/64 93 06/18/20 05:51 06/18/20 07:31 06/18/20 07:31 06/18/20 07:31 06/18/20 07:31 Temperature -Last 24 Hours Temperature 97.8 F Temperature 97.3 F Temperature 97.4 F Active Medications Acetaminophen (Tylenol) 650 mg PO Q4H PRN PRN Reason: Pain MILD(1-3)/Fever >100.5/[place] Albuterol/Ipratropium (Duoneb *Not For Prn Use*) 1 ampul IH TIDRT TRINY Amlodipine Besylate (Amlodipine) 10 mg PO QDAY TRINY Dextrose (D50w (25gm) Syringe) 50 ml IV Q30MIN PRN; Protocol PRN Reason: Hypoglycemia Docusate Sodium (Colace) 100 mg PO BID TRINY Ferrous Sulfate (Feosol) 325 mg PO BID TRINY Metronidazole (Flagyl 500 Mg/100 Ml) 500 mg in 100 mls @ 100 mls/hr IV Q8HR [facility]; Protocol Dextrose/Sodium Chloride (D5/0.45ns) 1,000 mls @ 75 mls/hr IV DIRECT TRINY Cefepime HCl (Cefepime/Ns 1 Gm/100 Ml) 1 gm in 100 mls @ 200 mls/hr IV Q12HR [facility] Insulin Human Regular (Humulin R) 0 unit SUB-Q Q6H [facility]; Protocol Metoprolol Succinate (Metoprolol Xl) 50 mg PO QDAY [facility] Ondansetron HCl (Zofran) 4 mg IV Q8H PRN PRN Reason: Nausea And Vomiting Oxycodone/Acetaminophen (Percocet 5/325) 1 tab PO Q6H PRN PRN Reason: Pain, Moderate (4-6) Polyethylene Glycol (Miralax 3350) 17 gm PO QDAY PRN PRN Reason: Constipation Senna (Senokot) 8.6 mg PO Q12HR [facility] Sodium Chloride (Sodium Chloride Flush Syringe 10 Ml) 10 ml IV BID TRINY Sodium Chloride (Sodium Chloride Flush Syringe 10 Ml) 10 ml IV PRN PRN PRN Reason: LINE FLUSH Laboratory Last Values WBC 31.1 K/mm3 (4.5-11.0) H 06/18/20 00:08 Hgb 8.8 gm/dl (10.1-14.3) L 06/18/20 00:08 Hct 28.9 % (30.3-42.9) L 06/18/20 00:08 MCV 80 fl (79-97) 06/18/20 00:08 Plt Count 590 K/mm3 (140-440) H 06/18/20 00:08 Seg Neuts % (Manual) 78.0 % (40.0-70.0) H 06/18/20 00:08 Creatinine 1.3 mg/dL (0.6-1.2) H 06/18/20 00:08 Lactic Acid 3.80 mmol/L (0.7-2.0) H* 06/18/20 04:58 AST 13 units/L (5-40) 06/18/20 00:08 ALT 7 units/L (7-56) 06/18/20 00:08 Alkaline Phosphatase 124 units/L (35-129) 06/18/20 00:08 Antibody Screen Negative 06/18/20 05:00 Medications and Allergies Allergies Allergy/AdvReac Type Severity Reaction Status Date / Time No Known Allergies Allergy Unverified 07/18/18 20:42 Home Medications Medication Instructions Recorded Confirmed Last Taken Type Ferrous Sulfate [Feosol 325 MG tab] 325 mg PO BID tablet 08/18/18 Unknown Rx HYDROcodone/APAP 5-325 [[place] 1 each PO Q4H PRN #30 tablet 08/18/18 Unknown Rx 5-325 mg TAB] Insulin Glargine [Lantus VIAL] 16 units SUB-Q DAILY units 08/18/18 Unknown Rx Ipratropium/Albuterol Sulfate 1 ampul IH TIDRT ampul.neb 08/18/18 Unknown Rx [DUONEB *Not for PRN Use*] Lispro Insulin [HumaLOG] 0 unit SUB-Q Q6HR units 08/18/18 Unknown Rx Metoprolol Xl [Metoprolol 50 mg PO QDAY #30 08/18/18 07/19/18 07/18/18 Rx SUCCINATE ER TAB] amLODIPine 10 mg PO QDAY tablet 08/18/18 Unknown Rx polyethylene glycoL 3350 [Miralax 17 gm PO QDAY PRN powd.pack 08/18/18 Unknown Rx 3350] Apixaban [Eliquis starter pack] 5 mg PO DAILY #74 tab.ds.pk 03/14/19 Unknown Rx Active Meds: Active Medications Acetaminophen (Tylenol) 650 mg PO Q4H PRN PRN Reason: Pain MILD(1-3)/Fever >100.5/[place] Albuterol/Ipratropium (Duoneb *Not For Prn Use*) 1 ampul IH TIDRT TRINY Amlodipine Besylate (Amlodipine) 10 mg PO QDAY TRINY Dextrose (D50w (25gm) Syringe) 50 ml IV Q30MIN PRN; Protocol PRN Reason: Hypoglycemia Docusate Sodium (Colace) 100 mg PO BID TRINY Ferrous Sulfate (Feosol) 325 mg PO BID TRINY Metronidazole (Flagyl 500 Mg/100 Ml) 500 mg in 100 mls @ 100 mls/hr IV Q8HR TRINY; Protocol Dextrose/Sodium Chloride (D5/0.45ns) 1,000 mls @ 75 mls/hr IV DIRECT TRINY Cefepime HCl (Cefepime/Ns 1 Gm/100 Ml) 1 gm in 100 mls @ 200 mls/hr IV Q12HR [facility] Insulin Human Regular (Humulin R) 0 unit SUB-Q Q6H [facility]; Protocol Metoprolol Succinate (Metoprolol Xl) 50 mg PO QDAY TRINY Ondansetron HCl (Zofran) 4 mg IV Q8H PRN PRN Reason: Nausea And Vomiting Oxycodone/Acetaminophen (Percocet 5/325) 1 tab PO Q6H PRN PRN Reason: Pain, Moderate (4-6) Polyethylene Glycol (Miralax 3350) 17 gm PO QDAY PRN PRN Reason: Constipation Senna (Senokot) 8.6 mg PO Q12HR [facility] Sodium Chloride (Sodium Chloride Flush Syringe 10 Ml) 10 ml IV BID TRINY Sodium Chloride (Sodium Chloride Flush Syringe 10 Ml) 10 ml IV PRN PRN PRN Reason: LINE FLUSH Exam - Constitutional Vitals: Last Vital Signs Temp 97.8 F 06/18/20 05:51 Pulse 85 06/18/20 07:31 Resp 22 06/18/20 07:31 BP 134/64 06/18/20 07:31 Pulse Ox 93 06/18/20 07:31 Results - Labs lab Results: Laboratory Results - last 24 hr 06/18/20 06/18/20 06/18/20 00:08 00:08 04:58 WBC 31.1 H RBC 3.60 L Hgb 8.8 L Hct 28.9 L MCV 80 MCH 24 L MCHC 31 RDW 18.6 H Plt Count 590 H Add Manual Diff Complete Total Counted 100 Seg Neuts % (Manual) 78.0 H Band Neutrophils % 2.0 Lymphocytes % (Manual) 14.0 Reactive Lymphs % (Man) 0 Monocytes % (Manual) 4.0 Eosinophils % (Manual) 0 Basophils % (Manual) 0 Metamyelocytes % 2.0 Myelocytes % 0 Promyelocytes % 0 Blast Cells % 0 Nucleated RBC % Not Reportable Seg Neutrophils # Man 24.3 H Band Neutrophils # 0.6 Lymphocytes # (Manual) 4.4 Abs React Lymphs (Man) 0.0 Monocytes # (Manual) 1.2 H Eosinophils # (Manual) 0.0 Basophils # (Manual) 0.0 Metamyelocytes # 0.6 Myelocytes # 0.0 Promyelocytes # 0.0 Blast Cells # 0.0 WBC Morphology Not Reportable Hypersegmented Neuts Not Reportable Hyposegmented Neuts Not Reportable Hypogranular Neuts Not Reportable Smudge Cells Not Reportable Toxic Granulation Not Reportable Toxic Vacuolation Not Reportable Dohle Bodies Not Reportable Pelger-Huet Anomaly Not Reportable Richard Rods Not Reportable Platelet Estimate Consistent w auto Clumped Platelets Not Reportable Plt Clumps, EDTA Not Reportable Large Platelets Not Reportable Giant Platelets Not Reportable Platelet Satelliting Not Reportable Plt Morphology Comment Not Reportable RBC Morphology Not Reportable Dimorphic RBCs Not Reportable Polychromasia Few Hypochromasia 1+ Poikilocytosis Not Reportable Anisocytosis 1+ Microcytosis Not Reportable Macrocytosis Not Reportable Spherocytes Few Pappenheimer Bodies Not Reportable Sickle Cells Not Reportable Target Cells Not Reportable Tear Drop Cells Not Reportable Ovalocytes Not Reportable Helmet Cells Not Reportable [place] Bodies Not Reportable [place] Rings Not Reportable Betzy Cells Not Reportable Bite Cells Not Reportable Crenated Cell Not Reportable Elliptocytes Not Reportable Acanthocytes (Spur) Not Reportable Rouleaux Not Reportable Hemoglobin C Crystals Not Reportable Schistocytes Few Malaria parasites Not Reportable Michi Bodies Not Reportable Hem Pathologist Commnt No PT 15.0 H INR 1.20 H Sodium 135 L Potassium 4.8 Chloride 98.1 Carbon Dioxide 23 Anion Gap 19 BUN 22 H Creatinine 1.3 H Estimated GFR 47 BUN/Creatinine Ratio 17 Glucose 222 H Lactic Acid Calcium 8.9 Magnesium Total Bilirubin 0.20 AST 13 ALT 7 Alkaline Phosphatase 124 Total Creatine Kinase Total Protein 7.7 Albumin 2.5 L Albumin/Globulin Ratio 0.5 Lipase 7 L Urine Color Urine Turbidity Urine pH Ur Specific [place] Urine Protein Urine Glucose (UA) Urine Ketones Urine Blood Urine Nitrite Urine Bilirubin Urine Urobilinogen Ur Leukocyte Esterase Urine WBC (Auto) Urine RBC (Auto) U Epithel Cells (Auto) Urine Bacteria (Auto) Hyaline Casts Urine Mucus Blood Type Antibody Screen 06/18/20 06/18/20 06/18/20 04:58 04:58 05:00 WBC RBC Hgb Hct MCV MCH MCHC RDW Plt Count Add Manual Diff Total Counted Seg Neuts % (Manual) Band Neutrophils % Lymphocytes % (Manual) Reactive Lymphs % (Man) Monocytes % (Manual) Eosinophils % (Manual) Basophils % (Manual) Metamyelocytes % Myelocytes % Promyelocytes % Blast Cells % Nucleated RBC % Seg Neutrophils # Man Band Neutrophils # Lymphocytes # (Manual) Abs React Lymphs (Man) Monocytes # (Manual) Eosinophils # (Manual) Basophils # (Manual) Metamyelocytes # Myelocytes # Promyelocytes # Blast Cells # WBC Morphology Hypersegmented Neuts Hyposegmented Neuts Hypogranular Neuts Smudge Cells Toxic Granulation Toxic Vacuolation Dohle Bodies Pelger-Huet Anomaly Richard Rods Platelet Estimate Clumped Platelets Plt Clumps, EDTA Large Platelets Giant Platelets Platelet Satelliting Plt Morphology Comment RBC Morphology Dimorphic RBCs Polychromasia Hypochromasia Poikilocytosis Anisocytosis Microcytosis Macrocytosis Spherocytes Pappenheimer Bodies Sickle Cells Target Cells Tear Drop Cells Ovalocytes Helmet Cells [place] Bodies [place] Rings Betzy Cells Bite Cells Crenated Cell Elliptocytes Acanthocytes (Spur) Rouleaux Hemoglobin C Crystals Schistocytes Malaria parasites Michi Bodies Hem Pathologist Commnt PT INR Sodium Potassium Chloride Carbon Dioxide Anion Gap BUN Creatinine Estimated GFR BUN/Creatinine Ratio Glucose Lactic Acid 3.80 H* Calcium Magnesium 2.00 Total Bilirubin AST ALT Alkaline Phosphatase Total Creatine Kinase 51 Total Protein Albumin Albumin/Globulin Ratio Lipase Urine Color Urine Turbidity Urine pH Ur Specific [place] Urine Protein Urine Glucose (UA) Urine Ketones Urine Blood Urine Nitrite Urine Bilirubin Urine Urobilinogen Ur Leukocyte Esterase Urine WBC (Auto) Urine RBC (Auto) U Epithel Cells (Auto) Urine Bacteria (Auto) Hyaline Casts Urine Mucus Blood Type B POSITIVE Antibody Screen Negative 06/18/20 05:51 WBC RBC Hgb Hct MCV MCH MCHC RDW Plt Count Add Manual Diff Total Counted Seg Neuts % (Manual) Band Neutrophils % Lymphocytes % (Manual) Reactive Lymphs % (Man) Monocytes % (Manual) Eosinophils % (Manual) Basophils % (Manual) Metamyelocytes % Myelocytes % Promyelocytes % Blast Cells % Nucleated RBC % Seg Neutrophils # Man Band Neutrophils # Lymphocytes # (Manual) Abs React Lymphs (Man) Monocytes # (Manual) Eosinophils # (Manual) Basophils # (Manual) Metamyelocytes # Myelocytes # Promyelocytes # Blast Cells # WBC Morphology Hypersegmented Neuts Hyposegmented Neuts Hypogranular Neuts Smudge Cells Toxic Granulation Toxic Vacuolation Dohle Bodies Pelger-Huet Anomaly Richard Rods Platelet Estimate Clumped Platelets Plt Clumps, EDTA Large Platelets Giant Platelets Platelet Satelliting Plt Morphology Comment RBC Morphology Dimorphic RBCs Polychromasia Hypochromasia Poikilocytosis Anisocytosis Microcytosis Macrocytosis Spherocytes Pappenheimer Bodies Sickle Cells Target Cells Tear Drop Cells Ovalocytes Helmet Cells [place] Bodies [place] Rings [place] Cells Bite Cells Crenated Cell Elliptocytes Acanthocytes (Spur) Rouleaux Hemoglobin C Crystals Schistocytes Malaria parasites Michi Bodies Hem Pathologist Commnt PT INR Sodium Potassium Chloride Carbon Dioxide Anion Gap BUN Creatinine Estimated GFR BUN/Creatinine Ratio Glucose Lactic Acid Calcium Magnesium Total Bilirubin AST ALT Alkaline Phosphatase Total Creatine Kinase Total Protein Albumin Albumin/Globulin Ratio Lipase Urine Color Yellow Urine Turbidity Clear Urine pH 5.0 Ur Specific [place] 1.017 Urine Protein <15 mg/dl Urine Glucose (UA) Neg Urine Ketones Neg Urine Blood Neg Urine Nitrite Neg Urine Bilirubin Neg Urine Urobilinogen 2.0 Ur Leukocyte Esterase Neg Urine WBC (Auto) 1.0 Urine RBC (Auto) 3.0 U Epithel Cells (Auto) 5.0 Urine Bacteria (Auto) 1+ Hyaline Casts 4 Urine Mucus Few Blood Type Antibody Screen
[2020-06-18] MEDS ORDERED: oxyCODONE /ACETAMINOPHEN 5-325MG TAB PO PRN (09:00)
[2020-06-18] MEDS ORDERED: ACETAMINOPHEN 325 MG TAB PO PRN (09:00)
[2020-06-18] MEDS ORDERED: ONDANSETRON 4 MG/2 ML INJ IV PRN (09:00)
[2020-06-18] MEDS ORDERED: D5W/0.45% NACL 1,000 ML IV SCH (09:00)
[2020-06-18] MEDS ORDERED: DEXTROSE 50% IN WATER (25GM) 50 ML SYRINGE IV PRN (09:00)
[2020-06-18] MEDS ORDERED: metroNIDAZOLE/NS 500 MG/100 ML 500 MG/100 ML BAG IV ONE (09:27)
[2020-06-18] MEDS ORDERED: DOCUSATE SODIUM 100 MG CAP ONE (09:27)
[2020-06-18] MEDS ORDERED: amLODIPine 10 MG TAB ONE (09:28)
[2020-06-18] MEDS ORDERED: METOPROLOL SUCCINATE XL 100 MG TAB PO ONE (09:28)
[2020-06-18] MEDS ORDERED: INSULIN REGULAR, HUMAN 100 UNIT/ML 3ML VIAL ONE ×2 (09:31→10:09)
[2020-06-18] MEDS ORDERED: D5W/0.45% NACL 1,000 ML IV ONE (09:55)
[2020-06-18] MEDS ORDERED: POLYETHYLENE GLYCOL 3350 17 GM POWDER PO PRN (10:00)
[2020-06-18] MEDS ORDERED: METOPROLOL SUCCINATE XL 25 MG TAB PO SCH ×2 (10:00→16:17)
[2020-06-18] MEDS: metroNIDAZOLE/NS 500 MG/100 ML 500 MG/100 ML BAG IV SCH ×3 (10:05→22:35)
[2020-06-18] MEDS: DOCUSATE SODIUM 100 MG CAP PO SCH ×2 (10:06→22:36)
[2020-06-18] MEDS: amLODIPine 10 MG TAB PO SCH (10:06)
[2020-06-18] MEDS: INSULIN REGULAR, HUMAN 100 UNIT/ML 3ML VIAL SUB-Q SCH ×3 (10:21→22:36)
[2020-06-18] MEDS ORDERED: CEFEPIME/NS 1 GM/100 ML 1 GM/100 ML BAG IV ONE (10:26)
[2020-06-18] MEDS ORDERED: IPRATROPIUM/ALBUTEROL SULFATE 3 ML AMPUL.NEB IH ONE (10:26)
[2020-06-18] MEDS: CEFEPIME/NS 1 GM/100 ML 1 GM/100 ML BAG IV SCH ×2 (10:35→22:35)
[2020-06-18] MEDS: IPRATROPIUM/ALBUTEROL SULFATE 3 ML AMPUL.NEB IH SCH ×3 (10:35→21:05)
[2020-06-18] MEDS ORDERED: ALBUTEROL 2.5 MG/3 ML NEBU IH PRN (11:00)
[2020-06-18] MEDS: FERROUS SULFATE 325 MG TAB PO SCH ×3 (11:31→22:36)
--- NOTE | 2020-06-18 11:46 | History and Physical Report ---
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 Patient denies any chest pain, fevers, chills, shortness of breath, recent weight loss, fatigue, hemoptysis, night sweats, known exposure to COVID-19 or recent sick contacts. Work-up in the emergency department included a CT abdomen/pelvis which showed probable cancer recurrence in the right mid abdomen near the anastomotic site with questionable surgical site dehiscence with small vague collections and a CXR which revealed minimal streaky bibasilar airspace disease. Lab work revealed hyponatremia 135, acute kidney injury (BUN/creatinine 22/1.3), and lactic acidosis (3.8). General surgery was consulted in the emergency department and oncology was consulted by the hospitalist service. Patient will be admitted to the hospital service for work- up of CT findings. Advance care planning conducted in the emergency department and prior visits reviewed. Home medications reconciled. 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 denies: smoking, alcohol abuse, prescription drug abuse, IV drug use Family history: diabetes, hypertension, other (stomach CA) Medications and Allergies Allergies Allergy/AdvReac Type Severity Reaction Status Date / Time No Known Allergies Allergy Unverified 07/18/18 20:42 Home Medications Medication Instructions Recorded Confirmed Last Taken Type Ferrous Sulfate [Feosol 325 MG tab] 325 mg PO BID tablet 08/18/18 Unknown Rx HYDROcodone/APAP 5-325 [[place] 1 each PO Q4H PRN #30 tablet 08/18/18 Unknown Rx 5-325 mg TAB] Insulin Glargine [Lantus VIAL] 16 units SUB-Q DAILY units 08/18/18 Unknown Rx Ipratropium/Albuterol Sulfate 1 ampul IH TIDRT ampul.neb 08/18/18 Unknown Rx [DUONEB *Not for PRN Use*] Lispro Insulin [HumaLOG] 0 unit SUB-Q Q6HR units 08/18/18 Unknown Rx Metoprolol Xl [Metoprolol 50 mg PO QDAY #30 08/18/18 07/19/18 07/18/18 Rx SUCCINATE ER TAB] amLODIPine 10 mg PO QDAY tablet 08/18/18 Unknown Rx polyethylene glycoL 3350 [Miralax 17 gm PO QDAY PRN powd.pack 08/18/18 Unknown Rx 3350] Apixaban [Eliquis starter pack] 5 mg PO DAILY #74 tab.ds.pk 03/14/19 Unknown Rx Active Meds: Active Medications Acetaminophen (Tylenol) 650 mg PO Q4H PRN PRN Reason: Pain MILD(1-3)/Fever >100.5/[place] Albuterol (Proventil) 2.5 mg IH Q3HRT PRN PRN Reason: Shortness Of Breath Albuterol/Ipratropium (Duoneb *Not For Prn Use*) 1 ampul IH TIDRT [facility] Last Admin: 06/18/20 10:35 Dose: 1 ampul Documented by: Amlodipine Besylate (Amlodipine) 10 mg PO QDAY [facility] Last Admin: 06/18/20 10:06 Dose: 10 mg Documented by: Dextrose (D50w (25gm) Syringe) 50 ml IV Q30MIN PRN; Protocol PRN Reason: Hypoglycemia Docusate Sodium (Colace) 100 mg PO BID [facility] Last Admin: 06/18/20 10:06 Dose: 100 mg Documented by: Ferrous Sulfate (Feosol) 325 mg PO BID [facility] Last Admin: 06/18/20 11:31 Dose: Not Given Documented by: Metronidazole (Flagyl 500 Mg/100 Ml) 500 mg in 100 mls @ 100 mls/hr IV Q8HR [facility]; Protocol Last Admin: 06/18/20 10:05 Dose: 100 mls/hr Documented by: Dextrose/Sodium Chloride (D5/0.45ns) 1,000 mls @ 75 mls/hr IV DIRECT [facility] Cefepime HCl (Cefepime/Ns 1 Gm/100 Ml) 1 gm in 100 mls @ 200 mls/hr IV Q12HR [facility] Last Admin: 06/18/20 10:35 Dose: 200 mls/hr Documented by: Insulin Human Regular (Humulin R) 0 unit SUB-Q Q6H [facility]; Protocol Last Admin: 06/18/20 10:21 Dose: 2 unit Documented by: Metoprolol Succinate (Metoprolol Xl) 50 mg PO QDAY [facility] Last Admin: 06/18/20 10:07 Dose: 50 mg Documented by: Ondansetron HCl (Zofran) 4 mg IV Q8H PRN PRN Reason: Nausea And Vomiting Oxycodone/Acetaminophen (Percocet 5/325) 1 tab PO Q6H PRN PRN Reason: Pain, Moderate (4-6) Polyethylene Glycol (Miralax 3350) 17 gm PO QDAY PRN PRN Reason: Constipation Senna (Senokot) 8.6 mg PO Q12HR [facility] Sodium Chloride (Sodium Chloride Flush Syringe 10 Ml) 10 ml IV BID [facility] Last Admin: 06/18/20 10:07 Dose: 10 ml Documented by: Sodium Chloride (Sodium Chloride Flush Syringe 10 Ml) 10 ml IV PRN PRN PRN Reason: LINE FLUSH Review of Systems Constitutional: no weight loss, no weight gain, no fever, no chills, no sweats, no night sweats, no anorexia, no fatigue, no weakness, no lethargy Ears, nose, mouth and throat: no ear pain, no ear discharge, no tinnitis, no decreased hearing, no nose pain, no nasal congestion, no nasal discharge, no sinus pressure, no sinus pain, no epistaxis, no bleeding gums, no dental pain, n o mouth pain, no dysphagia, no hoarseness, no sore throat, no voice changes, no post-nasal drip, no headache Cardiovascular: high blood pressure, no chest pain, no orthopnea, no palpitations, no rapid/irregular heart beat, no edema, no syncope, no lightheadedness, no shortness of breath, no dyspnea on exertion, no leg edema Respiratory: no cough, no cough with sputum, no excessive sputum, no hemoptysis, no shortness of breath, no dyspnea on exertion, no congestion, no wheezing, no pleurisy, no pain Gastrointestinal: nausea, vomiting, constipation, loss of appetite, no abdominal pain, no diarrhea, no hematemesis, no coffee ground emesis, no BRBPR, no melena, no hematochezia, no heartburn, no indigestion Genitourinary Female: no pelvic pain, no flank pain, no menorrhagia, no dysuria, no urinary frequency, no urgency, no stress incontinence Menstruation: postmenopausal Rectal: no pain, no incontinence, no bleeding, no itching, no hemorrhoids Musculoskeletal: no neck stiffness, no neck pain, no shooting arm pain, no arm numbness/tingling, no low back pain, no shooting leg pain, no leg numbness/tingling, no redness of joints, no hot joints, no morning stiffness, no muscle weakness, no muscle cramps, no frequent falls, no loss of height Integumentary: no rash, no pruritis, no redness, no sores, no wounds, no jaundice Neurological: no head injury, no transient paralysis, no paralysis, no weakness, no parathesias, no numbness, no tingling, no seizures, no syncope, no tremors, no vertigo, no headaches, no convulsions Psychiatric: change in appetite, no anxiety, no memory loss, no sleep disturbances, no insomnia, no depression, no confusion, no irritability Endocrine: no cold intolerance, no heat intolerance, no polyphagia, no excessive thirst, no polydipsia, no polyuria, no nocturia, no flushing, no weight change, no palpatations, no high blood sugars Hematologic/Lymphatic: no easy bruising, no easy bleeding Allergic/Immunologic: no urticaria, no allergic rhinitis Exam - Constitutional Vitals: Temp Pulse Resp BP Pulse Ox 97.8 F 84 16 164/82 96 06/18/20 05:51 06/18/20 10:15 06/18/20 10:18 06/18/20 10:15 06/18/20 10:18 General appearance: Present: no acute distress - EENT Eyes: Present: PERRL, EOM intact ENT: hearing decreased - Neck Neck: Present: supple, normal ROM - Respiratory Respiratory effort: normal Respiratory: bilateral: CTA - Cardiovascular Rhythm: regular Heart Sounds: Present: S1 & S2. Absent: systolic murmur, diastolic murmur - Extremities Extremities: no ischemia, pulses intact, pulses symmetrical, No edema, normal temperature, normal color, Full ROM Peripheral Pulses: within normal limits - Abdominal General gastrointestinal: Present: soft, non-tender, non-distended - Integumentary Integumentary: Present: clear, warm, dry - Musculoskeletal Musculoskeletal: strength equal bilaterally - Psychiatric Psychiatric: appropriate mood/affect, cooperative - Neurologic Neurologic: CNII-XII intact, no focal deficits, moves all extremities - Allied Health Allied health notes reviewed: nursing Results - Labs CBC & Chem 7: 06/18/20 00:08 06/18/20 00:08 Labs: Laboratory Last Values WBC 31.1 K/mm3 (4.5-11.0) H 06/18/20 00:08 RBC 3.60 M/mm3 (3.65-5.03) L 06/18/20 00:08 Hgb 8.8 gm/dl (10.1-14.3) L 06/18/20 00:08 Hct 28.9 % (30.3-42.9) L 06/18/20 00:08 MCV 80 fl (79-97) 06/18/20 00:08 MCH 24 pg (28-32) L 06/18/20 00:08 MCHC 31 % (30-34) 06/18/20 00:08 RDW 18.6 % (13.2-15.2) H 06/18/20 00:08 Plt Count 590 K/mm3 (140-440) H 06/18/20 00:08 Add Manual Diff Complete 06/18/20 00:08 Total Counted 100 06/18/20 00:08 Seg Neuts % (Manual) 78.0 % (40.0-70.0) H 06/18/20 00:08 Band Neutrophils % 2.0 % 06/18/20 00:08 Lymphocytes % (Manual) 14.0 % (13.4-35.0) 06/18/20 00:08 Reactive Lymphs % (Man) 0 % 06/18/20 00:08 Monocytes % (Manual) 4.0 % (0.0-7.3) 06/18/20 00:08 Eosinophils % (Manual) 0 % (0.0-4.3) 06/18/20 00:08 Basophils % (Manual) 0 % (0.0-1.8) 06/18/20 00:08 Metamyelocytes % 2.0 % 06/18/20 00:08 Myelocytes % 0 % 06/18/20 00:08 Promyelocytes % 0 % 06/18/20 00:08 Blast Cells % 0 % 06/18/20 00:08 Nucleated RBC % Not Reportable 06/18/20 00:08 Seg Neutrophils # Man 24.3 K/mm3 (1.8-7.7) H 06/18/20 00:08 Band Neutrophils # 0.6 K/mm3 06/18/20 00:08 Lymphocytes # (Manual) 4.4 K/mm3 (1.2-5.4) 06/18/20 00:08 Abs React Lymphs (Man) 0.0 K/mm3 06/18/20 00:08 Monocytes # (Manual) 1.2 K/mm3 (0.0-0.8) H 06/18/20 00:08 Eosinophils # (Manual) 0.0 K/mm3 (0.0-0.4) 06/18/20 00:08 Basophils # (Manual) 0.0 K/mm3 (0.0-0.1) 06/18/20 00:08 Metamyelocytes # 0.6 K/mm3 06/18/20 00:08 Myelocytes # 0.0 K/mm3 06/18/20 00:08 Promyelocytes # 0.0 K/mm3 06/18/20 00:08 Blast Cells # 0.0 K/mm3 06/18/20 00:08 WBC Morphology Not Reportable 06/18/20 00:08 Hypersegmented Neuts Not Reportable 06/18/20 00:08 Hyposegmented Neuts Not Reportable 06/18/20 00:08 Hypogranular Neuts Not Reportable 06/18/20 00:08 Smudge Cells Not Reportable 06/18/20 00:08 Toxic Granulation Not Reportable 06/18/20 00:08 Toxic Vacuolation Not Reportable 06/18/20 00:08 Dohle Bodies Not Reportable 06/18/20 00:08 Pelger-Huet Anomaly Not Reportable 06/18/20 00:08 Richard Rods Not Reportable 06/18/20 00:08 Platelet Estimate Consistent w auto 06/18/20 00:08 Clumped Platelets Not Reportable 06/18/20 00:08 Plt Clumps, EDTA Not Reportable 06/18/20 00:08 Large Platelets Not Reportable 06/18/20 00:08 Giant Platelets Not Reportable 06/18/20 00:08 Platelet Satelliting Not Reportable 06/18/20 00:08 Plt Morphology Comment Not Reportable 06/18/20 00:08 RBC Morphology Not Reportable 06/18/20 00:08 Dimorphic RBCs Not Reportable 06/18/20 00:08 Polychromasia Few 06/18/20 00:08 Hypochromasia 1+ 06/18/20 00:08 Poikilocytosis Not Reportable 06/18/20 00:08 Anisocytosis 1+ 06/18/20 00:08 Microcytosis Not Reportable 06/18/20 00:08 Macrocytosis Not Reportable 06/18/20 00:08 Spherocytes Few 06/18/20 00:08 Pappenheimer Bodies Not Reportable 06/18/20 00:08 Sickle Cells Not Reportable 06/18/20 00:08 Target Cells Not Reportable 06/18/20 00:08 Tear Drop Cells Not Reportable 06/18/20 00:08 Ovalocytes Not Reportable 06/18/20 00:08 Helmet Cells Not Reportable 06/18/20 00:08 [place] Bodies Not Reportable 06/18/20 00:08 [place] Rings Not Reportable 06/18/20 00:08 [place] Cells Not Reportable 06/18/20 00:08 Bite Cells Not Reportable 06/18/20 00:08 Crenated Cell Not Reportable 06/18/20 00:08 Elliptocytes Not Reportable 06/18/20 00:08 Acanthocytes (Spur) Not Reportable 06/18/20 00:08 Rouleaux Not Reportable 06/18/20 00:08 Hemoglobin C Crystals Not Reportable 06/18/20 00:08 Schistocytes Few 06/18/20 00:08 Malaria parasites Not Reportable 06/18/20 00:08 Michi Bodies Not Reportable 06/18/20 00:08 Hem Pathologist Commnt No 06/18/20 00:08 PT 15.0 Sec. (12.2-14.9) H 06/18/20 04:58 INR 1.20 (0.87-1.13) H 06/18/20 04:58 Sodium 135 mmol/L (137-145) L 06/18/20 00:08 Potassium 4.8 mmol/L (3.6-5.0) 06/18/20 00:08 Chloride 98.1 mmol/L (98-107) 06/18/20 00:08 Carbon Dioxide 23 mmol/L (22-30) 06/18/20 00:08 Anion Gap 19 mmol/L 06/18/20 00:08 BUN 22 mg/dL (7-17) H 06/18/20 00:08 Creatinine 1.3 mg/dL (0.6-1.2) H 06/18/20 00:08 Estimated GFR 47 ml/min 06/18/20 00:08 BUN/Creatinine Ratio 17 % 06/18/20 00:08 Glucose 222 mg/dL (65-100) H 06/18/20 00:08 POC Glucose 176 mg/dL (70-105) H 06/18/20 09:05 Lactic Acid 3.80 mmol/L (0.7-2.0) H* 06/18/20 04:58 Calcium 8.9 mg/dL (8.4-10.2) 06/18/20 00:08 Magnesium 2.00 mg/dL (1.7-2.3) 06/18/20 04:58 Total Bilirubin 0.20 mg/dL (0.1-1.2) 06/18/20 00:08 AST 13 units/L (5-40) 06/18/20 00:08 ALT 7 units/L (7-56) 06/18/20 00:08 Alkaline Phosphatase 124 units/L (35-129) 06/18/20 00:08 Total Creatine Kinase 51 units/L (30-135) 06/18/20 04:58 Total Protein 7.7 g/dL (6.3-8.2) 06/18/20 00:08 Albumin 2.5 g/dL (3.9-5) L 06/18/20 00:08 Albumin/Globulin Ratio 0.5 % 06/18/20 00:08 Lipase 7 units/L (13-60) L 06/18/20 00:08 Urine Color Yellow (Yellow) 06/18/20 05:51 Urine Turbidity Clear (Clear) 06/18/20 05:51 Urine pH 5.0 (5.0-7.0) 06/18/20 05:51 Ur Specific [place] 1.017 (1.003-1.030) 06/18/20 05:51 Urine Protein <15 mg/dl mg/dL (Negative) 06/18/20 05:51 Urine Glucose (UA) Neg mg/dL (Negative) 06/18/20 05:51 Urine Ketones Neg mg/dL (Negative) 06/18/20 05:51 Urine Blood Neg (Negative) 06/18/20 05:51 Urine Nitrite Neg (Negative) 06/18/20 05:51 Urine Bilirubin Neg (Negative) 06/18/20 05:51 Urine Urobilinogen 2.0 mg/dL (<2.0) 06/18/20 05:51 Ur Leukocyte Esterase Neg (Negative) 06/18/20 05:51 Urine WBC (Auto) 1.0 /HPF (0.0-6.0) 06/18/20 05:51 Urine RBC (Auto) 3.0 /HPF (0.0-6.0) 06/18/20 05:51 U Epithel Cells (Auto) 5.0 /HPF (0-13.0) 06/18/20 05:51 Urine Bacteria (Auto) 1+ /HPF (Negative) 06/18/20 05:51 Hyaline Casts 4 /LPF 06/18/20 05:51 Urine Mucus Few /HPF 06/18/20 05:51 Blood Type B POSITIVE 06/18/20 05:00 Antibody Screen Negative 06/18/20 05:00 Microbiology: Microbiology 06/18/20 04:58 Peripheral/Venous Blood Culture - Preliminary Culture in Progress 06/18/20 05:39 Peripheral/Venous Blood Culture - Preliminary Culture in Progress Grace/IV: IV Catheter Type [Left INT / Saline Lock External Jugular] Assessment and Plan VTE prophylaxis?: Chemical, Mechanical Plan of care discussed with patient/family: Yes - Patient Problems (1) Colon cancer Current Visit: No Status: Chronic Plan to address problem: Patient has a history of 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 Reyna informed the family of no surgical intervention recommendation and oncology recommendation for hospice. 06/18/2020 CT abdomen/pelvis shows probable cancer recurrence in the right mid abdomen near the anastomotic site with questionable surgical site dehiscence given big small collections, multiple enlarged regional lymph nodes and what appears to be soft tissue masses also present, bilateral renal cysts, bilateral adrenal thickening, mild streaky atelectasis in the lung bases (2) Acute kidney injury Current Visit: Yes Status: Acute Plan to address problem: Presented with a creatinine/BUN 1.3/. Baseline seems to be 0.8 from prior visits Avoid nephrotoxic medications Strict intake and output Daily weights Trend BMP Consider nephrology consult if increasing (3) Leukocytosis Current Visit: Yes Status: Acute Plan to address problem: Presented with leukocytosis of 35.8 Initiate antibiotic therapy Patient is afebrile 06/18 blood cultures x2 pending (4) Heart failure with preserved ejection fraction Current Visit: Yes Status: Chronic Qualifiers: Heart failure chronicity: chronic Qualified Code(s): I50.32 - Chronic diastolic (congestive) heart failure Plan to address problem: 07/2018 TTE showed an EF of 50 to 55% Restart home medications and initiated on beta-cecilia Patient does not appear to be volume overloaded at this time We will continue to monitor Follow-up with outpatient cardiology (5) Diabetes mellitus Current Visit: Yes Status: Chronic Plan to address problem: 06/18 hemoglobin A1c 5.6 SSI CC cardiac diet Accu-Cheks AC at bedtime We will hold off home Lantus dose while inpatient and may resume upon discharge (6) Hypertension Current Visit: No Status: Chronic Plan to address problem: Restarted home antihypertensive regimen, titrate as needed Blood pressure monitoring per protocol As needed Vasotec (7) Lactic acidosis Current Visit: Yes Status: Acute Plan to address problem: Presented with a lactic acid of 3.8 S/p 500 mL normal saline in the emergency department MIVF x1 L Repeat lactic acid ordered Trend lactic acid (8) Hyponatremia Current Visit: Yes Status: Acute Plan to address problem: Presented with sodium of 135 Slight decrease Trend BMP Monitor for neuro changes (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 Plan to address problem: Restarted home eliqus Supportive care (10) DVT prophylaxis Current Visit: Yes Status: Acute Plan to address problem: SCDs bilateral leg swelling. Similar anticoagulation with Eliquis (11) Full code status Current Visit: Yes Status: Acute <CHELSEA REYNA R - Last Filed: 06/19/20 08:16> History of Present Illness Date of admission: 06/18/20 07:55 Medications and Allergies Active Meds: Active Medications Acetaminophen (Tylenol) 650 mg PO Q4H PRN PRN Reason: Pain MILD(1-3)/Fever >100.5/[place] Hydrocodone Bitart/Acetaminophen ([place] 5/325) 1 each PO Q4H PRN PRN Reason: Pain, Moderate (4-6) Last Admin: 06/18/20 22:36 Dose: 1 each Documented by: Albuterol (Proventil) 2.5 mg IH Q3HRT PRN PRN Reason: Shortness Of Breath Albuterol/Ipratropium (Duoneb *Not For Prn Use*) 1 ampul IH TIDRT [facility] Last Admin: 06/18/20 21:05 Dose: 1 ampul Documented by: Amlodipine Besylate (Amlodipine) 10 mg PO QDAY [facility] Last Admin: 06/18/20 10:06 Dose: 10 mg Documented by: Apixaban (Eliquis) 5 mg PO Q12HR [facility] Dextrose (D50w (25gm) Syringe) 50 ml IV Q30MIN PRN; Protocol PRN Reason: Hypoglycemia Docusate Sodium (Colace) 100 mg PO BID [facility] Last Admin: 06/18/20 22:36 Dose: 100 mg Documented by: Enalaprilat (Vasotec) 0.625 mg IV Q6HR PRN PRN Reason: Hypertension Ferrous Sulfate (Feosol) 325 mg PO BID [facility] Last Admin: 06/18/20 22:36 Dose: 325 mg Documented by: Metronidazole (Flagyl 500 Mg/100 Ml) 500 mg in 100 mls @ 100 mls/hr IV Q8HR [facility]; Protocol Last Admin: 06/19/20 05:41 Dose: 100 mls/hr Documented by: Cefepime HCl (Cefepime/Ns 1 Gm/100 Ml) 1 gm in 100 mls @ 200 mls/hr IV Q12HR [facility] Last Admin: 06/18/20 22:35 Dose: 200 mls/hr Documented by: Dextrose/Sodium Chloride (D5/0.45ns) 1,000 mls @ 75 mls/hr IV DIRECT [facility] Last Admin: 06/19/20 05:42 Dose: 75 mls/hr Documented by: Insulin Human Regular (Humulin R) 0 unit SUB-Q Q6H [facility]; Protocol Last Admin: 06/19/20 05:40 Dose: Not Given Documented by: Metoprolol Succinate (Metoprolol Xl) 100 mg PO QDAY [facility] Ondansetron HCl (Zofran) 4 mg IV Q8H PRN PRN Reason: Nausea And Vomiting Oxycodone/Acetaminophen (Percocet 5/325) 1 tab PO Q6H PRN PRN Reason: Pain, Moderate (4-6) Polyethylene Glycol (Miralax 3350) 17 gm PO QDAY PRN PRN Reason: Constipation Senna (Senokot) 8.6 mg PO Q12HR [facility] Last Admin: 06/18/20 22:36 Dose: 8.6 mg Documented by: Sodium Chloride (Sodium Chloride Flush Syringe 10 Ml) 10 ml IV BID [facility] Last Admin: 06/18/20 22:37 Dose: 10 ml Documented by: Sodium Chloride (Sodium Chloride Flush Syringe 10 Ml) 10 ml IV PRN PRN PRN Reason: LINE FLUSH Exam - Constitutional Vitals: Temp Pulse Resp BP Pulse Ox 98.9 F 60 18 151/38 97 06/19/20 05:38 06/19/20 05:38 06/19/20 05:38 06/19/20 05:38 06/19/20 05:38 Results - Labs CBC & Chem 7: 06/19/20 04:41 06/19/20 04:41 Labs: Laboratory Last Values WBC 32.0 K/mm3 (4.5-11.0) H 06/19/20 04:41 RBC 3.06 M/mm3 (3.65-5.03) L 06/19/20 04:41 Hgb 7.4 gm/dl (10.1-14.3) L 06/19/20 04:41 Hct 23.9 % (30.3-42.9) L 06/19/20 04:41 MCV 78 fl (79-97) L 06/19/20 04:41 MCH 24 pg (28-32) L 06/19/20 04:41 MCHC 31 % (30-34) 06/19/20 04:41 RDW 18.5 % (13.2-15.2) H 06/19/20 04:41 Plt Count 527 K/mm3 (140-440) H 06/19/20 04:41 Lymph % (Auto) 7.5 % (13.4-35.0) L 06/19/20 04:41 [place] % (Auto) 4.8 % (0.0-7.3) 06/19/20 04:41 Eos % (Auto) 0.1 % (0.0-4.3) 06/19/20 04:41 Baso % (Auto) 0.1 % (0.0-1.8) 06/19/20 04:41 Lymph # (Auto) 2.4 K/mm3 (1.2-5.4) 06/19/20 04:41 [place] # (Auto) 1.5 K/mm3 (0.0-0.8) H 06/19/20 04:41 Eos # (Auto) 0.0 K/mm3 (0.0-0.4) 06/19/20 04:41 Baso # (Auto) 0.0 K/mm3 (0.0-0.1) 06/19/20 04:41 Add Manual Diff Complete 06/18/20 00:08 Total Counted 100 06/18/20 00:08 Seg Neutrophils % 87.5 % (40.0-70.0) H 06/19/20 04:41 Seg Neuts % (Manual) 78.0 % (40.0-70.0) H 06/18/20 00:08 Band Neutrophils % 2.0 % 06/18/20 00:08 Lymphocytes % (Manual) 14.0 % (13.4-35.0) 06/18/20 00:08 Reactive Lymphs % (Man) 0 % 06/18/20 00:08 Monocytes % (Manual) 4.0 % (0.0-7.3) 06/18/20 00:08 Eosinophils % (Manual) 0 % (0.0-4.3) 06/18/20 00:08 Basophils % (Manual) 0 % (0.0-1.8) 06/18/20 00:08 Metamyelocytes % 2.0 % 06/18/20 00:08 Myelocytes % 0 % 06/18/20 00:08 Promyelocytes % 0 % 06/18/20 00:08 Blast Cells % 0 % 06/18/20 00:08 Nucleated RBC % Not Reportable 06/18/20 00:08 Seg Neutrophils # 27.9 K/mm3 (1.8-7.7) H 06/19/20 04:41 Seg Neutrophils # Man 24.3 K/mm3 (1.8-7.7) H 06/18/20 00:08 Band Neutrophils # 0.6 K/mm3 06/18/20 00:08 Lymphocytes # (Manual) 4.4 K/mm3 (1.2-5.4) 06/18/20 00:08 Abs React Lymphs (Man) 0.0 K/mm3 06/18/20 00:08 Monocytes # (Manual) 1.2 K/mm3 (0.0-0.8) H 06/18/20 00:08 Eosinophils # (Manual) 0.0 K/mm3 (0.0-0.4) 06/18/20 00:08 Basophils # (Manual) 0.0 K/mm3 (0.0-0.1) 06/18/20 00:08 Metamyelocytes # 0.6 K/mm3 06/18/20 00:08 Myelocytes # 0.0 K/mm3 06/18/20 00:08 Promyelocytes # 0.0 K/mm3 06/18/20 00:08 Blast Cells # 0.0 K/mm3 06/18/20 00:08 WBC Morphology Not Reportable 06/18/20 00:08 Hypersegmented Neuts Not Reportable 06/18/20 00:08 Hyposegmented Neuts Not Reportable 06/18/20 00:08 Hypogranular Neuts Not Reportable 06/18/20 00:08 Smudge Cells Not Reportable 06/18/20 00:08 Toxic Granulation Not Reportable 06/18/20 00:08 Toxic Vacuolation Not Reportable 06/18/20 00:08 Dohle Bodies Not Reportable 06/18/20 00:08 Pelger-Huet Anomaly Not Reportable 06/18/20 00:08 Richard Rods Not Reportable 06/18/20 00:08 Platelet Estimate Consistent w auto 06/18/20 00:08 Clumped Platelets Not Reportable 06/18/20 00:08 Plt Clumps, EDTA Not Reportable 06/18/20 00:08 Large Platelets Not Reportable 06/18/20 00:08 Giant Platelets Not Reportable 06/18/20 00:08 Platelet Satelliting Not Reportable 06/18/20 00:08 Plt Morphology Comment Not Reportable 06/18/20 00:08 RBC Morphology Not Reportable 06/18/20 00:08 Dimorphic RBCs Not Reportable 06/18/20 00:08 Polychromasia Few 06/18/20 00:08 Hypochromasia 1+ 06/18/20 00:08 Poikilocytosis Not Reportable 06/18/20 00:08 Anisocytosis 1+ 06/18/20 00:08 Microcytosis Not Reportable 06/18/20 00:08 Macrocytosis Not Reportable 06/18/20 00:08 Spherocytes Few 06/18/20 00:08 Pappenheimer Bodies Not Reportable 06/18/20 00:08 Sickle Cells Not Reportable 06/18/20 00:08 Target Cells Not Reportable 06/18/20 00:08 Tear Drop Cells Not Reportable 06/18/20 00:08 Ovalocytes Not Reportable 06/18/20 00:08 Helmet Cells Not Reportable 06/18/20 00:08 [place] Bodies Not Reportable 06/18/20 00:08 [place] Rings Not Reportable 06/18/20 00:08 Betzy Cells Not Reportable 06/18/20 00:08 Bite Cells Not Reportable 06/18/20 00:08 Crenated Cell Not Reportable 06/18/20 00:08 Elliptocytes Not Reportable 06/18/20 00:08 Acanthocytes (Spur) Not Reportable 06/18/20 00:08 Rouleaux Not Reportable 06/18/20 00:08 Hemoglobin C Crystals Not Reportable 06/18/20 00:08 Schistocytes Few 06/18/20 00:08 Malaria parasites Not Reportable 06/18/20 00:08 Michi Bodies Not Reportable 06/18/20 00:08 Hem Pathologist Commnt No 06/18/20 00:08 PT 15.0 Sec. (12.2-14.9) H 06/18/20 04:58 INR 1.20 (0.87-1.13) H 06/18/20 04:58 Sodium 136 mmol/L (137-145) L 06/19/20 04:41 Potassium 4.2 mmol/L (3.6-5.0) 06/19/20 04:41 Chloride 102.8 mmol/L (98-107) 06/19/20 04:41 Carbon Dioxide 23 mmol/L (22-30) 06/19/20 04:41 Anion Gap 14 mmol/L 06/19/20 04:41 BUN 28 mg/dL (7-17) H 06/19/20 04:41 Creatinine 1.6 mg/dL (0.6-1.2) H 06/19/20 04:41 Estimated GFR 37 ml/min 06/19/20 04:41 BUN/Creatinine Ratio 18 % 06/19/20 04:41 Glucose 149 mg/dL (65-100) H 06/19/20 04:41 POC Glucose 130 mg/dL (70-105) H 06/19/20 08:09 Hemoglobin A1c 5.6 % (4-6) 06/18/20 13:44 Lactic Acid 3.80 mmol/L (0.7-2.0) H* 06/18/20 04:58 Calcium 8.3 mg/dL (8.4-10.2) L 06/19/20 04:41 Magnesium 2.00 mg/dL (1.7-2.3) 06/18/20 04:58 Total Bilirubin 0.20 mg/dL (0.1-1.2) 06/18/20 00:08 AST 13 units/L (5-40) 06/18/20 00:08 ALT 7 units/L (7-56) 06/18/20 00:08 Alkaline Phosphatase 124 units/L (35-129) 06/18/20 00:08 Total Creatine Kinase 51 units/L (30-135) 06/18/20 04:58 Total Protein 7.7 g/dL (6.3-8.2) 06/18/20 00:08 Albumin 2.5 g/dL (3.9-5) L 06/18/20 00:08 Albumin/Globulin Ratio 0.5 % 06/18/20 00:08 Lipase 7 units/L (13-60) L 06/18/20 00:08 Urine Color Yellow (Yellow) 06/18/20 05:51 Urine Turbidity Clear (Clear) 06/18/20 05:51 Urine pH 5.0 (5.0-7.0) 06/18/20 05:51 Ur Specific [place] 1.017 (1.003-1.030) 06/18/20 05:51 Urine Protein <15 mg/dl mg/dL (Negative) 06/18/20 05:51 Urine Glucose (UA) Neg mg/dL (Negative) 06/18/20 05:51 Urine Ketones Neg mg/dL (Negative) 06/18/20 05:51 Urine Blood Neg (Negative) 06/18/20 05:51 Urine Nitrite Neg (Negative) 06/18/20 05:51 Urine Bilirubin Neg (Negative) 06/18/20 05:51 Urine Urobilinogen 2.0 mg/dL (<2.0) 06/18/20 05:51 Ur Leukocyte Esterase Neg (Negative) 06/18/20 05:51 Urine WBC (Auto) 1.0 /HPF (0.0-6.0) 06/18/20 05:51 Urine RBC (Auto) 3.0 /HPF (0.0-6.0) 06/18/20 05:51 U Epithel Cells (Auto) 5.0 /HPF (0-13.0) 06/18/20 05:51 Urine Bacteria (Auto) 1+ /HPF (Negative) 06/18/20 05:51 Hyaline Casts 4 /LPF 06/18/20 05:51 Urine Mucus Few /HPF 06/18/20 05:51 Blood Type B POSITIVE 06/18/20 05:00 Antibody Screen Negative 06/18/20 05:00 Microbiology: Microbiology 06/18/20 04:58 Peripheral/Venous Blood Culture - Preliminary NO GROWTH AFTER 24 HOURS 06/18/20 05:39 Peripheral/Venous Blood Culture - Preliminary NO GROWTH AFTER 24 HOURS Grace/IV: Voiding Method External Female Catheter IV Catheter Type [Left INT / Saline Lock External Jugular] Assessment and Plan Assessment and plan: I saw and evaluated the patient. I agree with the findings and the plan of care as documented in the Nurse Practitioner's~note, with the following corrections and additions. I personally discussed the care of goal recommended by job recruiter and general surgery to patient's POA -Ms. Rios and with the patient. She disagreed with hospice and wanted to continue aggressive care. We will continue IV antibiotics for now, will follow culture, will give her IV fluids and monitor BMP.
[2020-06-18] MEDS: SENNOSIDES 8.6 MG TAB PO SCH ×2 (12:01→22:36)
--- NOTE | 2020-06-18 13:15 | Consultation ---
History of Present Illness Consult date: 06/18/20 Reason for consult: other (loss of appetite and poor po intack) - History of present illness History of present illness: This is an 89 year old female who presented to ER with complaints of poor appetite , The patient is very pleasant but a terrible historian and the hx has been taken from the medical record, she apparently has a hx of stage IV colon cancer? and has been evaluated by Oncology, she has undergone a right hemicole ctomy in the past 2018? with a T4no adenocarcinoma, she has apparently had a PET scan which is unavailable to me, she refused chemo/adjunctive therapy, She presented to the ER with a WBC of 31K, but is afebrile and has no tachycardia, her abdominal exam is soft and benign, She had a CT of abd pelvis suggesting recurrent cancer at her previous anastomosis and adenopathy, I do not have PET results available to me, the CT was done with out contrast and there is some question about her anastomosis. She has a hx of aortic thrombus and dimentia. She can not give any reliable hx upon my exam. She has been evaluated by Oncology/ please see their note. 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 denies: smoking, alcohol abuse, prescription drug abuse, IV drug use Family history: diabetes, hypertension, other (stomach CA) Medications and Allergies Allergies Allergy/AdvReac Type Severity Reaction Status Date / Time No Known Allergies Allergy Unverified 07/18/18 20:42 Home Medications Medication Instructions Recorded Confirmed Last Taken Type Ferrous Sulfate [Feosol 325 MG tab] 325 mg PO BID tablet 08/18/18 Unknown Rx HYDROcodone/APAP 5-325 [Shobonier 1 each PO Q4H PRN #30 tablet 08/18/18 Unknown Rx 5-325 mg TAB] Insulin Glargine [Lantus VIAL] 16 units SUB-Q DAILY units 08/18/18 Unknown Rx Ipratropium/Albuterol Sulfate 1 ampul IH TIDRT ampul.neb 08/18/18 Unknown Rx [DUONEB *Not for PRN Use*] Lispro Insulin [HumaLOG] 0 unit SUB-Q Q6HR units 08/18/18 Unknown Rx Metoprolol Xl [Metoprolol 50 mg PO QDAY #30 08/18/18 07/19/18 07/18/18 Rx SUCCINATE ER TAB] amLODIPine 10 mg PO QDAY tablet 08/18/18 Unknown Rx polyethylene glycoL 3350 [Miralax 17 gm PO QDAY PRN powd.pack 08/18/18 Unknown Rx 3350] Apixaban [Eliquis starter pack] 5 mg PO DAILY #74 tab.ds.pk 03/14/19 Unknown Rx Active Meds: Active Medications Acetaminophen (Tylenol) 650 mg PO Q4H PRN PRN Reason: Pain MILD(1-3)/Fever >100.5/[place] Albuterol (Proventil) 2.5 mg IH Q3HRT PRN PRN Reason: Shortness Of Breath Albuterol/Ipratropium (Duoneb *Not For Prn Use*) 1 ampul IH TIDRT [facility] Last Admin: 06/18/20 10:35 Dose: 1 ampul Documented by: Amlodipine Besylate (Amlodipine) 10 mg PO QDAY [facility] Last Admin: 06/18/20 10:06 Dose: 10 mg Documented by: Dextrose (D50w (25gm) Syringe) 50 ml IV Q30MIN PRN; Protocol PRN Reason: Hypoglycemia Docusate Sodium (Colace) 100 mg PO BID [facility] Last Admin: 06/18/20 10:06 Dose: 100 mg Documented by: Ferrous Sulfate (Feosol) 325 mg PO BID [facility] Last Admin: 06/18/20 12:02 Dose: Not Given Documented by: Metronidazole (Flagyl 500 Mg/100 Ml) 500 mg in 100 mls @ 100 mls/hr IV Q8HR [facility]; Protocol Last Admin: 06/18/20 10:05 Dose: 100 mls/hr Documented by: Dextrose/Sodium Chloride (D5/0.45ns) 1,000 mls @ 75 mls/hr IV DIRECT TRINY Cefepime HCl (Cefepime/Ns 1 Gm/100 Ml) 1 gm in 100 mls @ 200 mls/hr IV Q12HR [facility] Last Admin: 06/18/20 10:35 Dose: 200 mls/hr Documented by: Insulin Human Regular (Humulin R) 0 unit SUB-Q Q6H [facility]; Protocol Last Admin: 06/18/20 10:21 Dose: 2 unit Documented by: Metoprolol Succinate (Metoprolol Xl) 50 mg PO QDAY [facility] Last Admin: 06/18/20 10:07 Dose: 50 mg Documented by: Ondansetron HCl (Zofran) 4 mg IV Q8H PRN PRN Reason: Nausea And Vomiting Oxycodone/Acetaminophen (Percocet 5/325) 1 tab PO Q6H PRN PRN Reason: Pain, Moderate (4-6) Polyethylene Glycol (Miralax 3350) 17 gm PO QDAY PRN PRN Reason: Constipation Senna (Senokot) 8.6 mg PO Q12HR [facility] Last Admin: 06/18/20 12:01 Dose: Not Given Documented by: Sodium Chloride (Sodium Chloride Flush Syringe 10 Ml) 10 ml IV BID [facility] Last Admin: 06/18/20 10:07 Dose: 10 ml Documented by: Sodium Chloride (Sodium Chloride Flush Syringe 10 Ml) 10 ml IV PRN PRN PRN Reason: LINE FLUSH Review of Systems - Constitutional anorexia Exam Vital Signs Temp Pulse Resp BP Pulse Ox 97.4 F L 111 H 16 119/88 99 06/17/20 23:53 06/17/20 23:53 06/17/20 23:53 06/17/20 23:53 06/17/20 23:53 Results - Labs 06/18/20 00:08 06/18/20 00:08 Abnormal lab results 06/18/20 06/18/20 06/18/20 Range/Units 00:08 00:08 04:58 WBC 31.1 H (4.5-11.0) K/mm3 RBC 3.60 L (3.65-5.03) M/mm3 Hgb 8.8 L (10.1-14.3) gm/dl Hct 28.9 L (30.3-42.9) % MCH 24 L (28-32) pg RDW 18.6 H (13.2-15.2) % Plt Count 590 H (140-440) K/mm3 Seg Neuts % (Manual) 78.0 H (40.0-70.0) % Seg Neutrophils # Man 24.3 H (1.8-7.7) K/mm3 Monocytes # (Manual) 1.2 H (0.0-0.8) K/mm3 PT 15.0 H (12.2-14.9) Sec. INR 1.20 H (0.87-1.13) Sodium 135 L (137-145) mmol/L BUN 22 H (7-17) mg/dL Creatinine 1.3 H (0.6-1.2) mg/dL Glucose 222 H (65-100) mg/dL POC Glucose (70-105) mg/dL Lactic Acid (0.7-2.0) mmol/L Albumin 2.5 L (3.9-5) g/dL Lipase 7 L (13-60) units/L 06/18/20 06/18/20 06/18/20 Range/Units 04:58 09:05 12:13 WBC (4.5-11.0) K/mm3 RBC (3.65-5.03) M/mm3 Hgb (10.1-14.3) gm/dl Hct (30.3-42.9) % MCH (28-32) pg RDW (13.2-15.2) % Plt Count (140-440) K/mm3 Seg Neuts % (Manual) (40.0-70.0) % Seg Neutrophils # Man (1.8-7.7) K/mm3 Monocytes # (Manual) (0.0-0.8) K/mm3 PT (12.2-14.9) Sec. INR (0.87-1.13) Sodium (137-145) mmol/L BUN (7-17) mg/dL Creatinine (0.6-1.2) mg/dL Glucose (65-100) mg/dL POC Glucose 176 H 173 H (70-105) mg/dL Lactic Acid 3.80 H* (0.7-2.0) mmol/L Albumin (3.9-5) g/dL Lipase (13-60) units/L Diabetes panel 06/18/20 Range/Units 00:08 Sodium 135 L (137-145) mmol/L Potassium 4.8 (3.6-5.0) mmol/L Chloride 98.1 (98-107) mmol/L Carbon Dioxide 23 (22-30) mmol/L BUN 22 H (7-17) mg/dL Creatinine 1.3 H (0.6-1.2) mg/dL Glucose 222 H (65-100) mg/dL Calcium 8.9 (8.4-10.2) mg/dL AST 13 (5-40) units/L ALT 7 (7-56) units/L Alkaline Phosphatase 124 (35-129) units/L Total Protein 7.7 (6.3-8.2) g/dL Albumin 2.5 L (3.9-5) g/dL Calcium panel 06/18/20 Range/Units 00:08 Calcium 8.9 (8.4-10.2) mg/dL Albumin 2.5 L (3.9-5) g/dL Pituitary panel 06/18/20 Range/Units 00:08 Sodium 135 L (137-145) mmol/L Potassium 4.8 (3.6-5.0) mmol/L Chloride 98.1 (98-107) mmol/L Carbon Dioxide 23 (22-30) mmol/L BUN 22 H (7-17) mg/dL Creatinine 1.3 H (0.6-1.2) mg/dL Glucose 222 H (65-100) mg/dL Calcium 8.9 (8.4-10.2) mg/dL Adrenal panel 06/18/20 Range/Units 00:08 Sodium 135 L (137-145) mmol/L Potassium 4.8 (3.6-5.0) mmol/L Chloride 98.1 (98-107) mmol/L Carbon Dioxide 23 (22-30) mmol/L BUN 22 H (7-17) mg/dL Creatinine 1.3 H (0.6-1.2) mg/dL Glucose 222 H (65-100) mg/dL Calcium 8.9 (8.4-10.2) mg/dL Total Bilirubin 0.20 (0.1-1.2) mg/dL AST 13 (5-40) units/L ALT 7 (7-56) units/L Alkaline Phosphatase 124 (35-129) units/L Total Protein 7.7 (6.3-8.2) g/dL Albumin 2.5 L (3.9-5) g/dL Assessment and Plan This patient has probable recurrence of her primary colon cancer and is of ad vanced age, has dimentia and multiple medical problems,she is not really a candidate for surgery, she has allready refused chemo or adjunctive therapy in the past, I agree with the Oncologist that Hospice evaluation and end of life discussions with the family is the most appropriate next step.
[2020-06-18] MEDS ORDERED: HYDROcodone/ACETAMINOPHEN 5-325 MG TAB PO PRN (13:33)
[2020-06-18] MEDS ORDERED: CEFEPIME/NS 1 GM/100 ML 1 GM/100 ML BAG IV SCH (14:00)
[2020-06-18] MEDS ORDERED: ENALAPRILAT 2.5 MG/2 ML INJ IV PRN (16:15)
[2020-06-18] MEDS ORDERED: METOPROLOL SUCCINATE XL 50 MG TAB PO ONE (16:17)
[2020-06-18] MEDS ORDERED: SODIUM CHLORIDE 0.45% 1000 ML 1,000 ML IV SCH (17:00)
[2020-06-18] MEDS ORDERED: hydrALAZINE 25 MG TAB PO SCH (17:00)
[2020-06-18] MEDS: D5W/0.45% NACL 1,000 ML IV SCH (17:56)
[2020-06-19] MEDS: INSULIN REGULAR, HUMAN 100 UNIT/ML 3ML VIAL SUB-Q SCH ×3 (05:40→17:49)
[2020-06-19] MEDS: metroNIDAZOLE/NS 500 MG/100 ML 500 MG/100 ML BAG IV SCH ×2 (05:41→14:39)
[2020-06-19] MEDS: D5W/0.45% NACL 1,000 ML IV SCH (05:42)
[2020-06-19 06:34] LABS: Hematocrit 23.9 % (30.3-42.9); Hemoglobin 7.4 gm/dl (10.1-14.3); Mean Corpuscular HGB Conc 31 % (30-34); Mean Corpuscular Volume 78 fl (79-97); Platelet Count 527 K/mm3 (140-440); Red Blood Count 3.06 M/mm3 (3.65-5.03); Red Cell Distribution Width 18.5 % (13.2-15.2)
[2020-06-19 06:42] LABS: Basophils % (Auto) 0.1 % (0.0-1.8); Eosinophils % (Auto) 0.1 % (0.0-4.3); Lymphocytes # (Auto) 2.4 K/mm3 (1.2-5.4); Lymphocytes % (Auto) 7.5 % (13.4-35.0); Monocytes % (Auto) 4.8 % (0.0-7.3)
[2020-06-19 06:43] LABS: Monocytes # (Auto) 1.5 K/mm3 (0.0-0.8)
[2020-06-19] MEDS: IPRATROPIUM/ALBUTEROL SULFATE 3 ML AMPUL.NEB IH SCH ×2 (07:50→15:05)
[2020-06-19 07:59] LABS: Calcium 8.3 mg/dL (8.4-10.2)
--- NOTE | 2020-06-19 08:17 | Event Note ---
Date: 06/18/20 Patient's POA Ms. Rios call back this evening and she agreed for condominium manager consulted for hospice arrangement.
[2020-06-19] MEDS: CEFEPIME/NS 1 GM/100 ML 1 GM/100 ML BAG IV SCH (09:37)
[2020-06-19] MEDS: SENNOSIDES 8.6 MG TAB PO SCH (09:40)
[2020-06-19] MEDS: DOCUSATE SODIUM 100 MG CAP PO SCH (09:40)
[2020-06-19] MEDS: FERROUS SULFATE 325 MG TAB PO SCH (09:40)
[2020-06-19] MEDS: amLODIPine 10 MG TAB PO SCH (09:41)
--- NOTE | 2020-06-19 09:50 | Event Note ---
Date: 06/19/20 CT findings reviewed with Radiology including previous PET scan from several months ago, Pt has recurrence with advanced metastatic dz, I have spoken with Hospitalist about this, I will sign off, please reconsult me if needed. I believe this patient has a terminal condition, and is not a surgical candidate.
[2020-06-19] MEDS ORDERED: METOPROLOL SUCCINATE XL 100 MG TAB PO SCH (10:00)
[2020-06-19] MEDS ORDERED: APIXABAN 5 MG TAB PO SCH ×2 (10:00)
[2020-06-19] MEDS ORDERED: NON-FORMULARY EACH (Apixaban [Eliquis Starter Pack] 5 MG) PO SCH (10:00)
--- NOTE | 2020-06-19 14:13 | Discharge Summary ---
Providers - Providers Date of Admission: 06/18/20 07:55 Date of discharge: 06/19/20 Attending physician: CHELSEA CANO 06/18/20 07:33 Consult to Physician [CONS] Stat Comment: Consulting Provider: MARIELY HATHAWAY Physician Instructions: Reason For Exam: abnormal CT 06/18/20 08:34 Consult to Physician [CONS] Routine Comment: Consulting Provider: LEANN CLARK Physician Instructions: Reason For Exam: colon mass 06/18/20 17:21 Consult to Case Management [CONS] Routine Services Needed at Discharge: Other Notified:: cm notified Additional Physician Instructions: hospice 06/19/20 02:50 Physical Therapy Evaluation and Treat [CONS] Routine Comment: Reason For Exam: evaluation 06/19/20 02:51 Occupational Therapy Evaluate and Treat [CONS] Routine Comment: Reason For Exam: evaluation Speech Therapy Evaluation and Treat [CONS] Routine Reason For Exam: swallow evalv Primary care physician: CONFERENCE SERVICES MANAGER Hospitalization Condition: Stable Hospital course: This is a 89-year-old female with HTN, HFpEF (EF 50 to 55% on echo from 07/2018), DM, 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 Work-up in the emergency department included a CT abdomen/pelvis which showed probable cancer recurrence in the right mid abdomen near the anastomotic site with questionable surgical site dehiscence with small vague collections and a CXR which revealed minimal streaky bibasilar airspace disease. Lab work revealed hyponatremia 135, acute kidney injury (BUN/creatinine 22/1.3), and lactic acidosis (3.8). General surgery was consulted in the emergency department and oncology was consulted by the hospitalist service. Patient will be admitted to the hospital service for work-up of CT findings. Oncology and general surgery do not have any tatment options to offer as she refused adjuvant therapy and she is not a surgical candidate. Her family has agreed to discharge home with home hospice. She will need to follow up with her PCP within 1-2 weeks of discharge if able. 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 Cano informed the family of no surgical intervention recommendation and oncology recommendation for hospice. 06/18/2020 CT abdomen/pelvis shows probable cancer recurrence in the right mid abdomen near the anastomotic site with questionable surgical site dehiscence given big small collections, multiple enlarged regional lymph nodes and what appears to be soft tissue masses also present, bilateral renal cysts, bilateral adrenal thickening, mild streaky atelectasis in the lung bases Patient family has agreed to home hospice and she will be discharged into their care. (2) Acute kidney injury Current Visit: Yes Status: Acute Plan to address problem: Presented with a creatinine/BUN 1.3/. Baseline seems to be 0.8 from prior visits Avoid nephrotoxic medications Patient has opted for home hospice Discharge BUN/creatinine is 28/1.6 Consider follow-up with nephrology outpatient her PCP (3) Leukocytosis Current Visit: Yes Status: Acute Plan to address problem: Presented with leukocytosis of 35.8 Initiate antibiotic therapy Patient is afebrile 06/18 blood cultures x2 no growth to date Discharge WBC 32.0 (4) Heart failure with preserved ejection fraction Current Visit: Yes Status: Chronic Qualifiers: Heart failure chronicity: chronic Qualified Code(s): I50.32 - Chronic diastolic (congestive) heart failure Plan to address problem: 07/2018 TTE showed an EF of 50 to 55% Restart home medications and initiated on beta-cecilia Patient does not appear to be volume overloaded at this time We will continue to monitor Follow-up with outpatient cardiology (5) Diabetes mellitus Current Visit: Yes Status: Chronic Plan to address problem: 06/18 hemoglobin A1c 5.6 Resume home antidiabetic regimen CC cardiac diet Accu-Cheks per PCP instructions (6) Hypertension Current Visit: No Status: Chronic Plan to address problem: Restarted home antihypertensive regimen, titrate as needed Blood pressure monitoring per PCP instructions (7) Lactic acidosis Current Visit: Yes Status: Acute Plan to address problem: Presented with a lactic acid of 3.8 S/p 500 mL normal saline in the emergency department s/p MIVF x1 L Repeat lactic acid pending at time of discharge (8) Hypernatremia Current Visit: Yes Status: Acute Plan to address problem: Presented with sodium of 135 12/2 sodium 136 Slight decrease, no significant neuro changes noted (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 Plan to address problem: Continue home eliqus Disposition: DC-50 TO HOSPICE (HOME) - Discharge Diagnoses (1) Colon cancer Status: Chronic (2) Acute kidney injury Status: Acute (3) Leukocytosis Status: Acute (4) Heart failure with preserved ejection fraction Status: Chronic Qualifiers: Heart failure chronicity: chronic Qualified Code(s): I50.32 - Chronic diastolic (congestive) heart failure (5) Diabetes mellitus Status: Chronic (6) Hypertension Status: Chronic (7) Lactic acidosis Status: Acute (8) Hyponatremia Status: Acute (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 Absent: systolic murmur, diastolic murmur - Extremities Extremities: no ischemia, pulses intact, pulses symmetrical, No edema, normal temperature, normal color, Full ROM Peripheral Pulses: within normal limits - Abdominal General gastrointestinal: Present: soft, non-tender, non-distended - Integumentary Integumentary: Present: clear, warm, dry - Musculoskeletal Musculoskeletal: strength equal bilaterally - Psychiatric Psychiatric: appropriate mood/affect, cooperative - Neurologic Neurologic: CNII-XII intact, no focal deficits, moves all extremities - Allied Health Allied health notes reviewed: nursing - Constitutional Vitals: Temp Pulse Resp BP Pulse Ox 98.9 F 80 18 151/38 97 06/19/20 05:38 06/19/20 08:00 06/19/20 08:00 06/19/20 05:38 06/19/20 09:42 Plan Activity: advance as tolerated Diet: low fat, low cholesterol, low salt, diabetic Special Instructions: record daily BP diary, record blood sugar diary Additional Instructions: Present to your nearest emergency department or contact your primary care physician if experience worsening symptoms. You will be discharged with home hospice care. Follow-up with your PCP and wax machine operator 1 to 2 weeks of discharge if able Follow up with: PRIMARY CARE, [Primary Care Provider] - 3-5 Days
[2020-06-19 16:45] VITALS: BP 141/65
[2020-06-26] MEDS ORDERED: APIXABAN 5 MG TAB PO SCH (10:00)
== END 2020-06-19 17:55 | disposition hospice, home (50) ==
LOC: ED 22:28 → 3A 06-18 07:55
PROVIDERS: ADMIT Internal Medicine; ATTEND Internal Medicine
DX: A41.9 Sepsis, unspecified organism (principal); C18.9 Malignant neoplasm of colon, unspecified; N17.9 Acute kidney failure, unspecified; I11.0 Hypertensive heart disease with heart failure; I50.32 Chronic diastolic (congestive) heart failure; E11.9 Type 2 diabetes mellitus without complications; K63.89 Other specified diseases of intestine; D72.829 Elevated white blood cell count, unspecified; E87.2 Acidosis; E87.1 Hypo-osmolality and hyponatremia; I71.01 Dissection of thoracic aorta; Z98.890 Other specified postprocedural states; Z79.4 Long term (current) use of insulin
CPT/HCPCS: 36415; 71045; 74176; 80048; 80053; 81001; 82140; 82378; 82550; 82962; 83036; 83690; 83735; 85007; 85025; 85610; 86850; 86900; 86901; 87040; 92610; 93005; 94640; 96361; 96365; 96366; 96367; 99285; G0378; J0692; J2543; J7030; J7040; J1815